=== PATIENT | male | born 1935 | race Native Hawaiian/Other Pacific Islander ===

== ENCOUNTER 2016-07-09 19:59 | Inpatient (IN) | payer MEDICARE, MEDICAID ==
[2016-07-09] MEDS ORDERED: Iohexol 240 (50 ml) PO ONE (20:52)
[2016-07-09] MEDS ORDERED: Iohexol 240 (50 ml) ONE (21:01)
[2016-07-09] MEDS ORDERED: Piperacillin/Tazobact 3.375 GM in Sodium Chloride 0.9% 100 ML IV STA (21:07)
[2016-07-09] MEDS ORDERED: Vancomycin 1 g Inj ONE (21:09)
[2016-07-09 21:13] LABS: BASO % 0.2 % (0.0-2.0); EOS % 0.1 % (0.0-4.0); HEMATOCRIT 26.1 % (35.0-51.0); LYMPH # 0.6 K/uL (1.0-4.3); LYMPH % 4.5 % (20.0-40.0); MEAN CELL VOLUME 85.1 fl (80.0-94.0); MEAN CORPUSCULAR HEMOGLOBIN 27.9 pg (27.0-31.0); MEAN CORPUSCULAR HGB CONC 32.8 g/dL (33.0-37.0); MEAN PLATELET VOLUME 8.1 fl (7.2-11.7); MONO # 0.8 K/uL (0.0-0.8); MONO % 5.7 % (0.0-10.0); NEUT # 12.6 K/uL (1.8-7.0); NEUT % 89.5 % (50.0-75.0); NRBC % 0.1 % (0.0-0.0); PLATELET COUNT 293 K/uL (130-400); RED CELL DISTRIBUTION WIDTH 17.8 % (11.5-14.5); WHITE BLOOD COUNT 14.1 K/uL (4.8-10.8)
[2016-07-09 21:25] LABS: ALB/GLOB RATIO 0.7 (1.0-2.1); BILIRUBIN,TOTAL 1.6 mg/dl (0.2-1.3); CALCIUM 8.2 mg/dL (8.4-10.2); POTASSIUM 5.4 MMOL/L (3.6-5.0); TOTAL PROTEIN 7.5 G/DL (6.3-8.2)
--- NOTE | 2016-07-09 21:25 | ED PDOC ---
HPI: Abdomen Time Seen by Provider: 07/09/16 20:07 Chief Complaint (Nursing): Abdominal Pain Chief Complaint (Provider): Abdominal Pain History Per: Patient History/Exam Limitations: no limitations Onset/Duration Of Symptoms: Days (2x weeks) Current Symptoms Are (Timing): Still Present Severity: Moderate Location Of Pain/Discomfort: Other (right mid abdominal pain) Associated Symptoms: Other (lower extremity swelling). denies: Fever, Nausea, Vomiting, Diarrhea Additional Complaint(s): 80 year old male [place] patient with a pertinent medical history of HTN, diabetes , prostate BPH and unspecified renal disease presents to the ED with complaints of abdominal pain tat started 2x weeks ago. He reports that 2x weeks ago he started having mid right abdominal pain that radiated to his lower back. He also reports having a change (decrease) in urine output and swelling in his lower extremities. e denies having any other symptoms including fever, nausea, vomiting, diarrhea, and shortness of breath. PMD: Dr. Carroll siphoner: Gwyn Morse MD Past Medical History Reviewed: Historical Data, Nursing Documentation, Vital Signs Vital Signs: Last Vital Signs Temp 97.7 F 07/10/16 01:13 Pulse 72 07/10/16 01:13 Resp 20 07/10/16 01:13 BP 108/66 07/10/16 01:13 Pulse Ox 99 07/10/16 01:13 - Medical History PMH: Diabetes, HTN Other PMH: unspecified renal disease, prostate BPH - Surgical History Surgical History: No Surg Hx - Family History Family History: States: Unknown Family Hx - Social History Alcohol: None Drugs: Denies - Home Medications Home Medications: Ambulatory Orders Medication Instructions Recorded Allopurinol [Zyloprim] 100 mg PO DAILY 07/09/16 Atorvastatin [Lipitor] 80 mg PO DAILY 07/09/16 Carvedilol [Coreg] 12.5 mg PO BID 07/09/16 Cholecalciferol [Vitamin D 1000 IU] 50,000 units PO QWK 07/09/16 Ezetimibe [Zetia] 10 mg PO HS 07/09/16 Gabapentin [Neurontin] 300 mg PO BID 07/09/16 Linagliptin [Tradjenta] 5 mg PO DAILY 07/09/16 Pioglitazone HCl [Pioglitazone HCl] 15 mg PO DAILY 07/09/16 Sevelamer Carbonate [Renvela] 800 mg PO TID 07/09/16 Tamsulosin [Flomax] 0.4 mg PO DAILY 07/09/16 Torsemide [Demadex] 50 mg PO DAILY 07/09/16 - Allergies Allergies/Adverse Reactions: Allergies Allergy/AdvReac Type Severity Reaction Status Date / Time No Known Allergies Allergy Verified 07/09/16 20:05 Review of Systems ROS Statement: Except As Marked, All Systems Reviewed And Found Negative Constitutional: Negative for: Fever Respiratory: Negative for: Shortness of Breath Gastrointestinal: Positive for: Abdominal Pain. Negative for: Nausea, Vomiting , Diarrhea Musculoskeletal: Positive for: Back Pain (lower), Leg Pain (lower extremity swelling) Physical Exam - Reviewed Nursing Documentation Reviewed: Yes Vital Signs Reviewed: Yes - Physical Exam Appears: Positive for: Well, Non-toxic (morbidly obese), No Acute Distress Head Exam: Positive for: ATRAUMATIC, NORMOCEPHALIC Skin: Positive for: Normal Color Cardiovascular/Chest: Positive for: Regular Rate, Rhythm Respiratory: Positive for: Normal Breath Sounds. Negative for: Respiratory Distress Gastrointestinal/Abdominal: Positive for: Normal Exam (obese). Negative for: Tenderness Extremity: Positive for: Swelling (lower extremity bilteral 3+ pulse and edema up to mid tibeal surface. right lower extremity: icthyotic changes to the skin. right leg: erythema, warmth, induration. ) Neurologic/Psych: Positive for: Alert, Oriented (3x) - Laboratory Results Result Diagrams: 07/09/16 21:00 07/09/16 21:00 - ECG O2 Sat by Pulse Oximetry: 94 (RA) Pulse Ox Interpretation: Abnormal - Critical Care Total Time (In Min): 60 Medical Decision Making Medical Decision Makin:07 Initial impression: 80 year old male with abdominal pain and lower extremity swelling, onsetting of unspecified kidney disease and diabetes. Initial plan: * ct abd pelvis with PO and IV contrast * US duplex lower extremities * XRay chest portable * EKG * BNP * CMP * Lactic acid plasma * lipase * troponin I * udip * CBC * PTT * prothrombin time * omnipaque 240 50ml PO * toradol 10mg IV * blood culture * accucheck * urinalysis * reevaluation Clinical impression: cellulitis of right lower extremity, acute cholecystitis 22:[address] Morse, patient will be admitted to the medicine service under Dr. Walker. 22:[address] Walker, changed to Dr. Solorio's service after discussion with Dr. Morse. 2313: US duplex b/l lower extremities: No deep venous thrombosis in the visualized vascular segments of the lower extremities. 2342: CT A/P impression: Markedly distended gallbladder with stones and/or sludge and pericholecystic inflammation suggest cholecystitis; minimal ascites; mild ileus, possible colitis; 2.2 x 2.3 cm nodule in the azygoesophageal recess infectious/inflammatory versus neoplastic; anasarca Scribe Attestation: Documented by Luzma Zambrano, acting as a scribe for Mathieu Lo MD. Provider Scribe Attestation: All medical record entries made by the Scribe were at my direction and personally dictated by me. I have reviewed the chart and agree that the record accurately reflects my personal performance of the history, physical exam, medical decision making, and the department course for this patient. I have also personally directed, reviewed, and agree with the discharge instructions and disposition. Disposition - Clinical Impression Clinical Impression: Acute cholecystitis, Cellulitis of right lower extremity, Acute kidney failure - Patient ED Disposition Is Patient to be Admitted: Yes Counseled Patient/Family Regarding: Studies Performed, Diagnosis - Disposition Disposition Time: 21:50 Condition: FAIR - Pt Status Changed To: Hospital Disposition Of: Inpatient - Admit Certification Admit to Inpatient:: After my assessment, the patient will require hospitalization for at least two midnights. This is because of the severity of symptoms shown, intensity of services needed, and/or the medical risk in this patient being treated as an outpatient.
[2016-07-09 21:36] LABS: PARTIAL THROMBOPLASTIN TIME 30.1 SECONDS (23.3-32.5); TROPONIN I 0.05 ng/mL (0.00-0.120)
[2016-07-09] MEDS ORDERED: Sodium Chloride 0.9% 1,000 ML IV STA (22:29)
[2016-07-09 22:35] LABS: NEUTROPHIL 78 % (42-75); TOTAL CELLS COUNTED 100
--- NOTE | 2016-07-09 23:14 | US ---
EXAM: US Duplex Bilateral Lower Extremity Veins CLINICAL HISTORY: 80 years old, male; Signs and symptoms; Swelling of limb; Lower extremity, bilateral TECHNIQUE: Real-time ultrasound scan of the veins of the bilateral lower extremities with color Doppler flow, spectral waveform analysis and compression. EXAM DATE/TIME: 07/09/2016 9:07 PM COMPARISON: There are no prior studies for comparison. FINDINGS: Right deep veins: Common femoral, superficial femoral, popliteal and posterior tibial veins were evaluated. All veins examined are compressible. There are no intraluminal filling defects. There is expected blood flow on Doppler imaging. There is change in waveform with augmentation. Left deep veins: Common femoral, superficial femoral, popliteal and posterior tibial veins were evaluated. All veins examined are compressible. There are no intraluminal filling defects. There is expected blood flow on Doppler imaging. There is change in waveform with augmentation. Impression: No deep venous thrombosis in the visualized vascular segments of the lower extremities
--- NOTE | 2016-07-09 23:42 | CT ---
EXAM: CT Abdomen and Pelvis With Intravenous Contrast CLINICAL HISTORY: 80 years old, male; Pain; Abdominal pain; Generalized; Patient HX: Sent lori Guadarrama. Doc. With request; Additional info: Abd pain TECHNIQUE: Axial computed tomography images of the abdomen and pelvis with intravenous contrast. This CT exam was performed using one or more of the following dose reduction techniques: automated exposure control, adjustment of the mA and/or kV according to patient size, and/or use of iterative reconstruction technique. Coronal and sagittal reformatted images were created and reviewed. EXAM DATE/TIME: 07/09/2016 10:24 PM COMPARISON: There are no prior studies for comparison. FINDINGS: Artifacts: Motion artifact degrades image quality. Lower thorax: Heart size is at the upper limits of normal. There are coronary calcifications. There is an incompletely imaged 2.2 x 2.3 cm mass versus node in the gastroesophageal recess. There is a small right pleural effusion. There is trace left pleural effusion. There is atelectasis and scarring at the lung bases. ABDOMEN: Liver: unremarkable Gallbladder and bile ducts: Gallbladder is markedly distended, 12 x 8 cm. Attenuation of gallbladder contents suggest stones and/or sludge. There is pericholecystic inflammation. Common duct is only mildly prominent at 8 mm in diameter. Pancreas: Pancreas is atrophic. Spleen: unremarkable Adrenals: unremarkable Kidneys and ureters: There is a 6.4 cm left renal cyst. Kidneys and ureters are otherwise unremarkable. Stomach and bowel: Stomach is partially distended with contrast and air. Rotation is normal. Small bowel is mildly distended with contrast, fluid and air. There is no obstruction. Streak and motion limit evaluation of the ileocecal region. Terminal ileum and appendix are not optimally evaluated. Colon is incompletely distended. There is descending colon wall thickening. There is mild sigmoid and rectal wall thickening. Appendix: See stomach and bowel PELVIS: Bladder: Bladder is almost completely empty. There is bladder wall thickening. There is mild perivesical inflammation Reproductive: Prostate is enlarged. Seminal vesicles are unremarkable. ABDOMEN and PELVIS: Intraperitoneal space: There is free fluid in the abdomen and pelvis. There is no free air. Bones/joints: Bony structures are osteopenic.There are degenerative changes in the osseus structures. Soft tissues: There is body wall edema. There is a small fat containing umbilical hernia. There is a fat containing right inguinal hernia There is body wall edema. Vasculature: There are vascular calcifications. Lymph nodes: There is shotty para-aortic adenopathy. There are mildly enlarged inguinal nodes bilaterally IMPRESSION: Markedly distended gallbladder with stones and/or sludge and pericholecystic inflammation suggest cholecystitis; minimal ascites; mild ileus, possible colitis; 2.2 x 2.3 cm nodule in the azygoesophageal recess infectious/inflammatory versus neoplastic; anasarca Additional findings as described above.
[2016-07-10] MEDS ORDERED: Sod Polystyrene Sulf 15 gm/60 ml Oral Susp ONE (00:08)
[2016-07-10] MEDS ORDERED: Sod Polystyrene Sulf 15 gm/60 ml Oral Susp PO STA (00:10)
--- NOTE | 2016-07-10 00:53 | CP.PCM.CON ---
History of Present Illness - History of Present Illness History of Present Illness: REASONS FOR CONSULT : A ON CKD WITH VERY HIGH BUN AND CREATININ HYPERKALEMIA HYPONATREMIA MET ACIDOSIS .. BICARB OF 17 ANEMIA OF CKD PT IS WELL KNOWN TO ME FROM [facility] ADMISSIONS TO [facility] THIS IS HIS FIRST ADMISSION TO [facility] .. CAME IN FOR FEELING UNWEL .. UNABLE TO WALK .. R U ABDO PAIN AND ANASARCA .. SEVERE WEEKNESS AND TIREDNESS WAS EVALUATED IN ER AND WAS ADMITTED FOR A ON CKD . ACUTE CHOLECYSTITIS AND ANASARCA PMH : DM WITH COMPLICATIONS .. HTN .. MORBID OBESITY ..HYPERURECEMIA .. HYPERLEPIDEMIA ..CKD MONTY 4 AND METABOLIC SYNDROME Chief Complaint (Nursing): Abdominal Pain Chief Complaint (Provider): Abdominal Pain History Per: Patient History/Exam Limitations: no limitations Onset/Duration Of Symptoms: Days (2x weeks) Current Symptoms Are (Timing): Still Present Severity: Moderate Location Of Pain/Discomfort: Other (right mid abdominal pain) Associated Symptoms: Other (lower extremity swelling). denies: Fever, Nausea, Vomiting, Diarrhea Additional Complaint(s): 80 year old male [place] patient with a pertinent medical history of HTN, diabetes , prostate BPH and unspecified renal disease presents to the ED with complaints of abdominal pain tat started 2x weeks ago. He reports that 2x weeks ago he started having mid right abdominal pain that radiated to his lower back. He also reports having a change (decrease) in urine output and swelling in his lower extremities. e denies having any other symptoms including fever, nausea, vomiting, diarrhea, and shortness of breath. Past Patient History - Past Social History Alcohol: None Drugs: Denies - CARDIAC Hx Cardiac Disorders: Yes - ENDOCRINE/METABOLIC Hx Endocrine Disorders: Yes - HEMATOLOGICAL/ONCOLOGICAL Hx Blood Disorders: Yes - PSYCHIATRIC Hx Substance Use: No Meds Allergies/Adverse Reactions: Allergies Allergy/AdvReac Type Severity Reaction Status Date / Time No Known Allergies Allergy Verified 07/09/16 20:05 - Medications Medications: Current Medications Sodium Chloride (Sodium Chloride 0.9%) 1,000 mls @ 50 mls/hr IV .Q20H STA Stop: 07/10/16 18:28 Results - Vital Signs Recent Vital Signs: Last Vital Signs Temp 98.2 F 07/10/16 00:35 Pulse 72 07/10/16 00:35 Resp 16 07/10/16 00:35 BP 105/58 L 07/10/16 00:35 Pulse Ox 97 07/10/16 00:35 - Labs Result Diagrams: 07/09/16 21:00 07/09/16 21:00 Assessment & Plan - Assessment and Plan (Free Text) Assessment: 1. A ON CKD ... WITH ELECTROLYTES ABNORMALITIES HYPONATREMIA AND HYPERKALEMIA .. WITH METABO;IC ACIDOSIS I THINK PT WILL NEED TO START ON HD 2 . ANEMIA OF CKD .. NEEDS IRON STUDIES + EPO + VENOFER 3. ELECTROLYTES ABNORMALITIES .. HYPONATREMIA AND HYPERKALEMIA 4. ANASARCA AND ELEVATED BNP .. PT NEEDS TO START ON HD 5. ACUTE CHOLICYSTITIS 6 . MULTIPLE MEDICAL PROBLEMS OUTLINED ABOVE P : TO START HD .. NEEDS VASCULAR SURGEON FOR ACCESS START NS AT 50 CC/H .. WILL D/C IN AM VENOUS MAPPING OF BOTH UPPER EXTREMITIES FOR FISTULA /GRAFT RENAL AND DIABETIC DIET : 2 G NA .. 2 G K .. 100 G PROTIEN .. 1800 SANDI ADA .. FR 1000 CC/D C/O CURRENT MEDS SURGICAL CONSULT FOR ACUTE CHOLECYSTITIS WILL F/U VERY CLOSELY - Date & Time Date: 07/10/16 Time: 19:00
[2016-07-10] MEDS ORDERED: Ergocalciferol 50,000 Intl Units Cap PO SCH (02:30)
[2016-07-10] MEDS: Insulin Regular 100 units/ml SC SCH ×4 (06:30→21:39)
[2016-07-10 07:02] LABS: ALB/GLOB RATIO 0.7 (1.0-2.1); ALKALINE PHOSPHATASE 250 U/L (38-126); ALT/SGPT 20 U/L (21-72); AST/SGOT 18 U/L (17-59); CALCIUM 7.9 mg/dL (8.4-10.2); CARBON DIOXIDE 18 mmol/L (22-30); CHLORIDE 98 mmol/L (98-107); CHOLESTEROL 64 mg/dL (0-199); GFR AFRICAN-AMERICAN 10; GLUCOSE,RANDOM 280 mg/dL (75-110); POTASSIUM 4.4 MMOL/L (3.6-5.0); SODIUM 129 mmol/l (132-148); TOTAL PROTEIN 6.4 G/DL (6.3-8.2)
[2016-07-10 07:14] LABS: BLOOD UREA NITROGEN 112 mg/dl (9-20)
[2016-07-10 07:32] LABS: THYROID STIMULATING HORMONE 0.84 mIU/ML (0.46-4.68)
[2016-07-10 08:28] LABS: HEMATOCRIT 25.8 % (35.0-51.0); MEAN CELL VOLUME 88.1 fl (80.0-94.0); MEAN CORPUSCULAR HEMOGLOBIN 27.1 pg (27.0-31.0); MEAN CORPUSCULAR HGB CONC 30.7 g/dL (33.0-37.0); WHITE BLOOD COUNT 16.5 K/uL (4.8-10.8)
--- NOTE | 2016-07-10 08:33 | RAD ---
HISTORY: abd pain COMPARISON: No prior. FINDINGS: LUNGS: Bibasilar opacities may represent atelectasis PLEURA: Blunting of both costophrenic angle could be due to pleural effusions. CARDIOVASCULAR: The cardiac silhouette is mildly enlarged. Widening of the mediastinum which could be artifactual due to the patient position OSSEOUS STRUCTURES: No significant abnormalities. VISUALIZED UPPER ABDOMEN: Normal. OTHER FINDINGS: None. IMPRESSION: Suboptimal portable study. Bibasilar densities may represent atelectasis. Mild pulmonary vascular congestion and mild cardiomegaly. Blunting of both costophrenic angle suspicious for small pleural effusions.
[2016-07-10] MEDS ORDERED: Piperacillin/Tazobact 3.375 GM in Sodium Chloride 0.9% 100 ML IVPB SCH (09:00)
[2016-07-10] MEDS ORDERED: Pneumococcal 23-Valent Vaccine IM ONE (10:00)
--- NOTE | 2016-07-10 10:09 | CARD ---
APPROVED REPORT EKG Measurement Heart [id number] <Conclusion> Sinus rhythm with premature atrial complexes Left bundle branch block Abnormal ECG
--- NOTE | 2016-07-10 13:32 | CP.PCM.HP ---
History of Present Illness - History of Present Illness History of Present Illness: 80yo M with PMHx HTN, diabetes, prostate BPH and CKD admitted for acute on chronic kidney injury and cellulitis. c/o abd pain x2 weeks, currently resolved. Follows with Nephro Dr. Morse for CKD and report decreased UOP, a/w LE swelling. Denies f/c, n/v, chest pain, SOB. PMD: Dr. Carroll Present on Admission - Present on Admission Any Indicators Present on Admission: Yes Decubitus Ulcer Present: Yes Decubitus Ulcer Location: Lower extremities Review of Systems - Constitutional Constitutional: absent: Chills, Fever - EENT Eyes: absent: Change in Vision - Cardiovascular Cardiovascular: absent: Chest Pain - Respiratory Respiratory: absent: Dyspnea - Gastrointestinal Gastrointestinal: absent: Abdominal Pain, Diarrhea, Nausea, Vomiting - Genitourinary Genitourinary: absent: Dysuria, Hematuria - Neurological Neurological: absent: Headaches Past Patient History - Past Medical History & Family History Past Medical History?: Yes - Past Social History Smoking Status: Never Smoked - CARDIAC Hx Hypertension: Yes - RENAL Hx Renal Failure: Yes - ENDOCRINE/METABOLIC Hx Endocrine Disorders: Yes Hx Diabetes Mellitus Type 2: Yes - HEMATOLOGICAL/ONCOLOGICAL Hx Blood Disorders: Yes - MUSCULOSKELETAL/RHEUMATOLOGICAL Hx Falls: No - GENITOURINARY/GYNECOLOGICAL Hx Prostate Problems: Yes (BPH) - PSYCHIATRIC Hx Substance Use: No - ANESTHESIA Hx Anesthesia: No Hx Anesthesia Reactions: No Meds Allergies/Adverse Reactions: Allergies Allergy/AdvReac Type Severity Reaction Status Date / Time No Known Allergies Allergy Verified 07/09/16 20:05 Physical Exam - Constitutional Appears: Non-toxic, No Acute Distress - Head Exam Head Exam: ATRAUMATIC, NORMAL INSPECTION - Eye Exam Eye Exam: Normal appearance - Neck Exam Neck exam: Positive for: Normal Inspection - Respiratory Exam Respiratory Exam: Clear to Auscultation Bilateral - Cardiovascular Exam Cardiovascular Exam: REGULAR RHYTHM - GI/Abdominal Exam GI & Abdominal Exam: Normal Bowel Sounds, Soft - Extremities Exam Additional comments: erythema, ulcer, dermatitis stasis - Neurological Exam Neurological exam: Alert, Oriented x3 - Skin Skin Exam: Dry, Warm Additional comments: other than lower extremities Results - Vital Signs Recent Vital Signs: Last Vital Signs Temp 97.9 F 07/10/16 08:00 Pulse 67 07/10/16 08:13 Resp 18 07/10/16 08:00 BP 100/60 07/10/16 08:13 Pulse Ox 96 07/10/16 08:00 - Labs Result Diagrams: 07/10/16 05:35 07/10/16 05:35 Labs: Laboratory Results - last 24 hr 07/10/16 07/10/16 07/10/16 05:35 05:35 05:35 WBC 16.5 H RBC 2.93 L Hgb 7.9 L Hct 25.8 L MCV 88.1 D MCH 27.1 MCHC 30.7 L RDW 18.0 H Plt Count 234 APTT 32.0 Sodium 129 L Potassium 4.4 Chloride 98 Carbon Dioxide 18 L Anion Gap 17 BUN 112 H* Creatinine 6.3 H Est GFR ( Amer) 10 Est GFR (Non-Af Amer) 9 POC Glucose (mg/dL) Random Glucose 280 H Hemoglobin A1c Calcium 7.9 L Ferritin Total Bilirubin 1.0 AST 18 ALT 20 L Alkaline Phosphatase 250 H Total Protein 6.4 Albumin 2.6 L Globulin 3.8 Albumin/Globulin Ratio 0.7 L Triglycerides 58 Cholesterol 64 LDL Cholesterol Direct < 30 HDL Cholesterol 27 L Vitamin B12 914 Thyroxine (T4) 6.30 TSH 3rd Generation 0.84 07/10/16 07/10/16 07/10/16 07:12 10:55 11:32 WBC RBC Hgb Hct MCV MCH MCHC RDW Plt Count APTT Sodium Potassium Chloride Carbon Dioxide Anion Gap BUN Creatinine Est GFR ( Amer) Est GFR (Non-Af Amer) POC Glucose (mg/dL) 261 H Random Glucose Hemoglobin A1c 9.2 H Calcium Ferritin 892.0 H Total Bilirubin AST ALT Alkaline Phosphatase Total Protein Albumin Globulin Albumin/Globulin Ratio Triglycerides Cholesterol LDL Cholesterol Direct HDL Cholesterol Vitamin B12 Thyroxine (T4) TSH 3rd Generation Assessment & Plan - Assessment and Plan (Free Text) Assessment: 80yo M with PMHx HTN, diabetes, prostate BPH and CKD admitted for acute on chronic kidney injury, cellulitis. acute on CKD -emergent HD -Nephro on board, appreciate input -cath for HD with IR today -renal diet -renal dose meds when possible -Mg, Phos, BMP, correct electrolytes, monitor BUN/Cr -Renagel cellulitis -Vanc/Zosyn cholecystitis -US no cholecystitis, cholelithiasis -CT abd pelvis showing ? cholecystitis -surgery on board, appreciate input anasarca -low albumin -monitor -HD -Nephro on board, appreciate input HTN -coreg HLD -statin -zetia DM -held linagliptin, pioglitazone -januvia -SSI -accuchecks DVT ppx -heparin Decision To Admit - Pt Status Changed To: Hospital Disposition Of: Inpatient - Admit Certification Admit to Inpatient:: After my assessment, the patient will require hospitalization for at least two midnights. This is because of the severity of symptoms shown, intensity of services needed, and/or the medical risk in this patient being treated as an outpatient. - . Bed Request Type: Med/Surg Admitting Physician: Tang Solorio
--- NOTE | 2016-07-10 14:15 | US ---
HISTORY: Gallbladder evaluation COMPARISON: None. TECHNIQUE: Sonographic evaluation of the abdomen. FINDINGS: LIVER: Measures 15.2 cm. Normal echogenicity of the liver parenchyma. No mass. No intrahepatic bile duct dilatation. GALLBLADDER: Cholelithiasis. Negative study for gallbladder wall thickening, pericholecystic fluid, sonographic Knight's sign. Sludge identified. COMMON BILE DUCT: Measures 4.1 mm. No stones. No dilatation. PANCREAS: Unremarkable as visualized. No mass. No ductal dilatation. RIGHT KIDNEY: Measures 5.1 x 9.4cm. Normal echogenicity. No calculus, mass, or hydronephrosis. LEFT KIDNEY: Measures 5.3 x 10.4cm. Normal echogenicity. No calculus, mass, or hydronephrosis.Incidental finding(s): Simple cyst upper pole 4.8 x 6.2 cm SPLEEN: Normal in size and contour. No mass. AORTA: No aneurysmal dilatation. IVC: Unremarkable. OTHER FINDINGS: None. IMPRESSION: Cholelithiasis. No sonographic evidence of acute cholecystitis.
[2016-07-10] MEDS ORDERED: Lidocaine 1% Inj (20ml) ONE (14:19)
[2016-07-10 14:44] LABS: IRON 20 ug/dL (49-181)
--- NOTE | 2016-07-10 14:56 | PCM.SURG1 ---
Surgeon's Initial Post Op Note - Surgeon's Notes Surgeon: Dominick Esparza MD Advertising Supervisor: NONE Type of Anesthesia: Local Pre-Operative Diagnosis: Renal failure Operative Findings: Patetn right IJV on Ultrasound Post-Operative Diagnosis: Renal failure Operation Performed: Right IJ nontunneled HD catheter placement. Specimen/Specimens Removed: none Estimated Blood Loss: EBL {In ML}: 2 Blood Products Given: N/A Drains Used: No Drains Post-Op Condition: Fair Date of Surgery/Procedure: 07/10/16 Time of Surgery/Procedure: 14:50
--- NOTE | 2016-07-10 15:04 | CP.PCM.CON ---
History of Present Illness - History of Present Illness History of Present Illness: General surgery - Dr. Roa 80 yo M morbidly obese w/ HTN, DM, HL, CKD, who came in to ED yesterday complaining of weakness, abdominal pain and bloating. Pt was found to have acute on chronic renal failure. He underwent Ct abdomen/pelvis which showed a distended GB suspicious for cholecystitis. Surgery was consulted for poss. cholecystitis and HD catheter. Today pt was sent to IR for Permacath placement. An U/S was ordered to further evaluate the gallbladder. Pt was S&E at bedside with lot attendant. He is a poor historian and defers most questions to his son. Pt currently denies any abdominal pain, he does complain of bloating and states that he had some pain yesterday but today he feels fine. Pt is tolerating a regular diet and denies any N/V, F/C. Review of Systems - Review of Systems All systems: reviewed and no additional remarkable complaints except (as per HPI ) Past Patient History - Past Medical History & Family History Past Medical History?: Yes - Past Social History Smoking Status: Never Smoked - CARDIAC Hx Hypertension: Yes - RENAL Hx Renal Failure: Yes - ENDOCRINE/METABOLIC Hx Endocrine Disorders: Yes Hx Diabetes Mellitus Type 2: Yes - HEMATOLOGICAL/ONCOLOGICAL Hx Blood Disorders: Yes - MUSCULOSKELETAL/RHEUMATOLOGICAL Hx Falls: No - GENITOURINARY/GYNECOLOGICAL Hx Prostate Problems: Yes (BPH) - PSYCHIATRIC Hx Substance Use: No - ANESTHESIA Hx Anesthesia: No Hx Anesthesia Reactions: No Meds Allergies/Adverse Reactions: Allergies Allergy/AdvReac Type Severity Reaction Status Date / Time No Known Allergies Allergy Verified 07/09/16 20:05 - Medications Medications: Current Medications Acetaminophen (Tylenol 325mg Tab) 650 mg PO Q6 PRN PRN Reason: Pain, moderate (4-7) Allopurinol (Zyloprim) [address] [facility] Last Admin: 07/10/16 08:23 Dose: 100 mg Atorvastatin Calcium (Lipitor) [address] [facility] Last Admin: 07/10/16 08:23 Dose: 80 mg Carvedilol (Coreg) 12.[address] [facility] Last Admin: 07/10/16 08:13 Dose: Not Given Ezetimibe (Zetia) [address] [facility] Ergocalciferol (Drisdol 50,000 Intl Units Cap) [address] [facility] Gabapentin (Neurontin) [address] [facility] Last Admin: 07/10/16 08:23 Dose: 300 mg Heparin Sodium (Porcine) (Heparin) 5,[address] [facility] PRN Reason: Protocol Last Admin: 07/10/16 08:22 Dose: 5,000 units Vancomycin HCl 1 gm/ Sodium (Chloride) 250 mls @ 166.667 mls/hr IVPB DAILY [facility] Last Admin: 07/10/16 10:54 Dose: 166.667 mls/hr Piperacillin Sod/Tazobactam (Sod 2.25 gm/ Sodium Chloride) 100 mls @ 100 mls/ hr IVPB Q8 [facility] Insulin Human Regular (Humulin R) [address] [facility] PRN Reason: Protocol Last Admin: 07/10/16 06:30 Dose: 2 u Sevelamer HCl (Renagel) [address] [facility] Last Admin: 07/10/16 08:23 Dose: 800 mg Sitagliptin Phosphate (Januvia) [address] [facility] Last Admin: 07/10/16 08:23 Dose: 25 mg Tamsulosin HCl (Flomax) 0.[address] [facility] Last Admin: 07/10/16 08:21 Dose: 0.4 mg Physical Exam - Constitutional Appears: No Acute Distress - Head Exam Head Exam: ATRAUMATIC, NORMAL INSPECTION, NORMOCEPHALIC - Eye Exam Eye Exam: EOMI, Normal appearance - ENT Exam ENT Exam: Mucous Membranes Dry - Respiratory Exam Respiratory Exam: NORMAL BREATHING PATTERN. absent: Respiratory Distress - Cardiovascular Exam Cardiovascular Exam: REGULAR RHYTHM - GI/Abdominal Exam GI & Abdominal Exam: Distended, Soft. absent: Firm, Guarding, Rebound, Rigid, Tenderness - Neurological Exam Neurological exam: Alert, Oriented x3 - Psychiatric Exam Psychiatric exam: Normal Affect, Normal Mood - Skin Skin Exam: Dry, Intact Results - Vital Signs Recent Vital Signs: Last Vital Signs Temp 96.3 F L 07/10/16 14:47 Pulse 80 07/10/16 14:47 Resp 18 07/10/16 14:47 BP 100/62 07/10/16 14:47 Pulse Ox 98 07/10/16 14:47 - Labs Result Diagrams: 07/10/16 05:35 07/10/16 05:35 Labs: Laboratory Results - last 24 hr 07/10/16 07/10/16 07/10/16 05:35 05:35 05:35 WBC 16.5 H RBC 2.93 L Hgb 7.9 L Hct 25.8 L MCV 88.1 D MCH 27.1 MCHC 30.7 L RDW 18.0 H Plt Count 234 APTT 32.0 Sodium 129 L Potassium 4.4 Chloride 98 Carbon Dioxide 18 L Anion Gap 17 BUN 112 H* Creatinine 6.3 H Est GFR ( Amer) 10 Est GFR (Non-Af Amer) 9 POC Glucose (mg/dL) Random Glucose 280 H Hemoglobin A1c Calcium 7.9 L Ferritin Total Bilirubin 1.0 AST 18 ALT 20 L Alkaline Phosphatase 250 H Total Protein 6.4 Albumin 2.6 L Globulin 3.8 Albumin/Globulin Ratio 0.7 L Triglycerides 58 Cholesterol 64 LDL Cholesterol Direct < 30 HDL Cholesterol 27 L Vitamin B12 914 Thyroxine (T4) 6.30 TSH 3rd Generation 0.84 07/10/16 07/10/16 07/10/16 07:12 10:55 11:32 WBC RBC Hgb Hct MCV MCH MCHC RDW Plt Count APTT Sodium Potassium Chloride Carbon Dioxide Anion Gap BUN Creatinine Est GFR ( Amer) Est GFR (Non-Af Amer) POC Glucose (mg/dL) 261 H Random Glucose Hemoglobin A1c 9.2 H Calcium Ferritin 892.0 H Total Bilirubin AST ALT Alkaline Phosphatase Total Protein Albumin Globulin Albumin/Globulin Ratio Triglycerides Cholesterol LDL Cholesterol Direct HDL Cholesterol Vitamin B12 Thyroxine (T4) TSH 3rd Generation - Imaging and Cardiology CT scan - abdomen Status: Image reviewed by me, Report reviewed by me US - abdomen Status: Image reviewed by me, Report reviewed by me Assessment & Plan - Assessment and Plan (Free Text) Assessment: 80 yo M w/ morbid obesity, DM, HTN, Acute on CKD, surgery consulted for poss. cholecystitis -HD catheter to be placed by IR, Dialysis as per Nephro -CT shows evidence of gallstones and inflammation around the gallbladder, ileus and mild colitis -U/S with stones, no pericholecystic fluid or wall thickening -Pt. asymptomatic and U/S negative for acute cholecystitis -No plans for surgical intervention at this time Dw Dr. Crispin Triplett PGY2
[2016-07-10] MEDS ORDERED: Dextrose 50% SYRINGE Inj (50 ml) IVP PRN (15:13)
[2016-07-10] MEDS ORDERED: Glucagon Recombinant 1 mg Inj IM PRN (15:13)
--- NOTE | 2016-07-10 15:26 | VASCULAR ---
PROCEDURE: Date of procedure: 07/10/2016 Procedure: Placement of a non tunneled hemodialysis catheter, CPT 68444 Medications: 6cc 1 percent lidocaine Radiation: .40 mGy Fluoro time: 3.1 secconds Images saved: 2 HISTORY: Acute renal failure TECHNIQUE: Following informed consent, the patient's right neck was prepped and draped in the usual sterile fashion. Ultrasound showed a patent and compressible right internal jugular vein. After the skin was anesthetized with 1% lidocaine, the internal jugular vein was accessed under direct ultrasound guidance with micropuncture technique and a guidewire was advanced under fluorospocic guidance into the SVC. The venotomy was then dilated to accommodate a non tunneled 15 hemodialysis catheter. An image documenting ultrasound guidance for vascular access was permanently saved. The catheter was tested and has adequate blood return for hemodialysis. The catheter was flushed and loaded with heparin per specified amounts. The catheter was secured to patient's skin. A dressing was applied. Post procedure chest x-ray showed a hemodialysis catheter at the caval atrial junction. IMPRESSION: Placement of a non tunneled 15 centimeter hemodialysis catheter via the right internal jugular vein. The tip of the catheter was confirmed with a postoperative chest x-ray and is at the superior vena cava-cavoatrial junction. The catheter is functional ready for use.
--- NOTE | 2016-07-10 19:45 | CP.PCM.PN ---
Subjective - Date & Time of Evaluation Date of Evaluation: 07/10/16 Time of Evaluation: 15:00 - Subjective Subjective: SEEN ON RENAL F/U .. FEELS LITTLE BETTER S/P R SHILY CATH IN IJ BY IR PT IS READY FOR HD CASE D/W HIM AND HIS AND HIS [employer] AMIR CONSENT WAS SIGNED BY PT WITH THE RN WITNESS SEVERE ACUTE ON TOP OF CKD WITH ACIDOSIS AND ELECTROLYTES ABNORMALITIES PT HAS HAD 3 ADMISSIONS IN THE LAST 6 MONTHS FOR HIS ILLNESSES WILL START ON HD ALL PREVIOUS EMR REVIEWED AND APPRECIETED Objective - Vital Signs/Intake and Output Vital Signs (last 24 hours): Temp Pulse Resp BP Pulse Ox 96.6 F L 68 20 95/53 L 98 07/10/16 16:28 07/10/16 18:57 07/10/16 18:57 07/10/16 18:57 07/10/16 18:57 - Medications Medications: Current Medications Acetaminophen (Tylenol 325mg Tab) 650 mg PO Q6 PRN PRN Reason: Pain, moderate (4-7) Allopurinol (Zyloprim) 100 mg PO DAILY [facility] Last Admin: 07/10/16 08:23 Dose: 100 mg Atorvastatin Calcium (Lipitor) 80 mg PO DAILY [facility] Last Admin: 07/10/16 08:23 Dose: 80 mg Carvedilol (Coreg) 12.5 mg PO BID [facility] Last Admin: 07/10/16 17:32 Dose: Not Given Dextrose (Dextrose 50% Inj) 0 ml IVP STAT PRN; Protocol PRN Reason: Hypoglycemia Protocol Ezetimibe (Zetia) 10 mg PO HS [facility] Ergocalciferol (Drisdol 50,000 Intl Units Cap) 1 cap PO QWK [facility] Gabapentin (Neurontin) 300 mg PO BID [facility] Last Admin: 07/10/16 17:22 Dose: 300 mg Glucagon (Glucagen Diagnostic Kit) 0 mg IM STAT PRN; Protocol PRN Reason: Hypoglycemia Protocol Heparin Sodium (Porcine) (Heparin) 5,000 units SC Q8 [facility] PRN Reason: Protocol Last Admin: 07/10/16 17:20 Dose: 5,000 units Vancomycin HCl 1 gm/ Sodium (Chloride) 250 mls @ 166.667 mls/hr IVPB DAILY [facility] Last Admin: 07/10/16 10:54 Dose: 166.667 mls/hr Piperacillin Sod/Tazobactam (Sod 2.25 gm/ Sodium Chloride) 100 mls @ 100 mls/ hr IVPB Q8 [facility] Last Admin: 07/10/16 17:19 Dose: 100 mls/hr Insulin Human Regular (Humulin R) 0 units SC ACHS [facility] PRN Reason: Protocol Last Admin: 07/10/16 17:24 Dose: 3 u Sevelamer HCl (Renagel) 800 mg PO TID [facility] Last Admin: 07/10/16 17:21 Dose: 800 mg Sitagliptin Phosphate (Januvia) 25 mg PO DAILY [facility] Last Admin: 07/10/16 08:23 Dose: 25 mg Tamsulosin HCl (Flomax) 0.4 mg PO DAILY [facility] Last Admin: 07/10/16 08:21 Dose: 0.4 mg - Labs Labs: 07/10/16 05:35 07/10/16 05:35 PT 11.7 SECONDS (9.6-11.2) H 07/09/16 21:00 INR 1.13 (0.92-1.08) H 07/09/16 21:00 APTT 32.0 SECONDS (23.3-32.5) 07/10/16 05:35 Assessment and Plan - Assessment and Plan (Free Text) Assessment: A ON CKD .. TO START ON HD .. S/P R IJ SHILY CATH ELECTROLYTES ABNORMALITIES .. SEVERE ANEMIA OF CKD MULTIPLE CO MORBIDITIES P : HD IN AM WITH 1 UNIT PRBC 2ND HD IN SAT WITH 2ND UNITS PRBC CONSENT FOR HD OBTAINED FROM PT D/C IVF C/O CURRENT MEDS NEXT WEEK FOR TUNNELLED CATH IF B/C _VE SW TO FAX PAPERS FOR OUT PT HD SPOT KEEP CLOSE EYE
[2016-07-10 22:52] LABS: FOLATE 10.1 ng/mL
[2016-07-11 07:24] LABS: HEMATOCRIT 26.9 % (35.0-51.0); MEAN CELL VOLUME 86.2 fl (80.0-94.0); MEAN CORPUSCULAR HEMOGLOBIN 27.1 pg (27.0-31.0); MEAN CORPUSCULAR HGB CONC 31.4 g/dL (33.0-37.0); WHITE BLOOD COUNT 14.2 K/uL (4.8-10.8)
--- NOTE | 2016-07-11 07:33 | CP.PCM.PN ---
Subjective - Date & Time of Evaluation Date of Evaluation: 07/11/16 Time of Evaluation: 07:33 - Subjective Subjective: no overnight events. completed right IJ HD cath placement with IR yesterday. HD today with 1u pRBC. Denies abdominal pain, no other complaints. Denies chest pain, SOB. Objective - Vital Signs/Intake and Output Vital Signs (last 24 hours): Temp Pulse Resp BP Pulse Ox 96.6 F L 71 20 101/59 L 98 07/11/16 05:37 07/11/16 05:37 07/11/16 05:37 07/11/16 05:37 07/11/16 00:33 - Medications Medications: Current Medications Acetaminophen (Tylenol 325mg Tab) 650 mg PO Q6 PRN PRN Reason: Pain, moderate (4-7) Allopurinol (Zyloprim) 100 mg PO DAILY [facility] Last Admin: 07/10/16 08:23 Dose: 100 mg Atorvastatin Calcium (Lipitor) 80 mg PO DAILY [facility] Last Admin: 07/10/16 08:23 Dose: 80 mg Carvedilol (Coreg) 12.5 mg PO BID [facility] Last Admin: 07/10/16 17:32 Dose: Not Given Dextrose (Dextrose 50% Inj) 0 ml IVP STAT PRN; Protocol PRN Reason: Hypoglycemia Protocol Ezetimibe (Zetia) 10 mg PO HS [facility] Last Admin: 07/10/16 21:40 Dose: 10 mg Ergocalciferol (Drisdol 50,000 Intl Units Cap) 1 cap PO QWK [facility] Gabapentin (Neurontin) 300 mg PO BID [facility] Last Admin: 07/10/16 17:22 Dose: 300 mg Glucagon (Glucagen Diagnostic Kit) 0 mg IM STAT PRN; Protocol PRN Reason: Hypoglycemia Protocol Heparin Sodium (Porcine) (Heparin) 5,000 units SC Q8 [facility] PRN Reason: Protocol Last Admin: 07/11/16 01:52 Dose: Not Given Vancomycin HCl 1 gm/ Sodium (Chloride) 250 mls @ 166.667 mls/hr IVPB DAILY [facility] Last Admin: 07/10/16 10:54 Dose: 166.667 mls/hr Piperacillin Sod/Tazobactam (Sod 2.25 gm/ Sodium Chloride) 100 mls @ 100 mls/ hr IVPB Q8 [facility] Last Admin: 07/11/16 01:37 Dose: 100 mls/hr Insulin Human Regular (Humulin R) 0 units SC ACHS [facility] PRN Reason: Protocol Last Admin: 07/10/16 21:39 Dose: Not Given Sevelamer HCl (Renagel) 800 mg PO TID [facility] Last Admin: 07/10/16 17:21 Dose: 800 mg Sitagliptin Phosphate (Januvia) 25 mg PO DAILY [facility] Last Admin: 07/10/16 08:23 Dose: 25 mg Tamsulosin HCl (Flomax) 0.4 mg PO DAILY [facility] Last Admin: 07/10/16 08:21 Dose: 0.4 mg - Labs Labs: 07/10/16 05:35 07/10/16 05:35 PT 11.7 SECONDS (9.6-11.2) H 07/09/16 21:00 INR 1.13 (0.92-1.08) H 07/09/16 21:00 APTT 32.0 SECONDS (23.3-32.5) 07/10/16 05:35 - Constitutional Appears: Non-toxic, No Acute Distress - Head Exam Head Exam: NORMAL INSPECTION - Neck Exam Neck Exam: Normal Inspection - Respiratory Exam Respiratory Exam: Clear to Ausculation Bilateral - Cardiovascular Exam Cardiovascular Exam: REGULAR RHYTHM - GI/Abdominal Exam GI & Abdominal Exam: Soft, Normal Bowel Sounds. absent: Tenderness - Extremities Exam Extremities Exam: Pedal Edema, Tenderness Additional comments: dermatitis, ulceration - Back Exam Back Exam: NORMAL INSPECTION - Neurological Exam Neurological Exam: Alert, Oriented x3 - Skin Skin Exam: Dry, Warm Additional comments: other than LE Assessment and Plan - Assessment and Plan (Free Text) Assessment: 80yo M with PMHx HTN, diabetes, prostate BPH and CKD admitted for acute on chronic kidney injury, cellulitis. acute on CKD -emergent HD, today (with 1u pRBC) and tomorrow (with 2u pRBC) -Nephro on board, appreciate input -s/p HD cath right IJ per IR -renal diet -renally dose meds when possible -Mg, Phos, BMP, correct electrolytes, monitor BUN/Cr -Renagel cellulitis -Vanc/Zosyn, renally dosed, vanc administered after HD. -CrCl 9 -GFR 7 -c/s podiatry cholecystitis, ruled out -US no cholecystitis, cholelithiasis -CT abd pelvis showing ? cholecystitis -surgery on board, s/o. no cholecystitis anasarca -low albumin -monitor -HD today -Nephro on board, appreciate input HTN -coreg HLD -statin -zetia DM -held linagliptin, pioglitazone -januvia -SSI -accuchecks DVT ppx -heparin
[2016-07-11 07:46] LABS: ALB/GLOB RATIO 0.7 (1.0-2.1); BILIRUBIN,TOTAL 0.7 mg/dl (0.2-1.3); CALCIUM 7.9 mg/dL (8.4-10.2); MAGNESIUM 2.1 MG/DL (1.6-2.3); PHOSPHOROUS 6.6 mg/dl (2.5-4.5); POTASSIUM 4.5 MMOL/L (3.6-5.0); TOTAL PROTEIN 6.8 G/DL (6.3-8.2)
--- NOTE | 2016-07-11 08:16 | CP.PCM.CON ---
History of Present Illness - History of Present Illness History of Present Illness: PODIATRY CONSULT NOTE 80 year old male seen at bedside concerning potential bilateral lower extremity redness and swelling. . Weak and poorly oriented during interview. With language barrier unable to obtain history of present illness. Undergoing dialysis during interview. PMHx HTN, diabetes, prostate BPH and CKD Past Patient History - Past Medical History & Family History Past Medical History?: Yes - Past Social History Smoking Status: Never Smoked - CARDIAC Hx Hypertension: Yes - RENAL Hx Renal Failure: Yes - ENDOCRINE/METABOLIC Hx Endocrine Disorders: Yes Hx Diabetes Mellitus Type 2: Yes - HEMATOLOGICAL/ONCOLOGICAL Hx Blood Disorders: Yes - MUSCULOSKELETAL/RHEUMATOLOGICAL Hx Falls: No - GENITOURINARY/GYNECOLOGICAL Hx Prostate Problems: Yes (BPH) - PSYCHIATRIC Hx Substance Use: No - ANESTHESIA Hx Anesthesia: No Hx Anesthesia Reactions: No Meds Allergies/Adverse Reactions: Allergies Allergy/AdvReac Type Severity Reaction Status Date / Time No Known Allergies Allergy Verified 07/09/16 20:05 - Medications Medications: Current Medications Acetaminophen (Tylenol 325mg Tab) 650 mg PO Q6 PRN PRN Reason: Pain, moderate (4-7) Allopurinol (Zyloprim) 100 mg PO DAILY [facility] Last Admin: 07/10/16 08:23 Dose: 100 mg Atorvastatin Calcium (Lipitor) 80 mg PO DAILY [facility] Last Admin: 07/10/16 08:23 Dose: 80 mg Carvedilol (Coreg) 12.5 mg PO BID [facility] Last Admin: 07/10/16 17:32 Dose: Not Given Dextrose (Dextrose 50% Inj) 0 ml IVP STAT PRN; Protocol PRN Reason: Hypoglycemia Protocol Ezetimibe (Zetia) 10 mg PO HS [facility] Last Admin: 07/10/16 21:40 Dose: 10 mg Ergocalciferol (Drisdol 50,000 Intl Units Cap) 1 cap PO QWK [facility] Gabapentin (Neurontin) 300 mg PO BID [facility] Last Admin: 07/10/16 17:22 Dose: 300 mg Glucagon (Glucagen Diagnostic Kit) 0 mg IM STAT PRN; Protocol PRN Reason: Hypoglycemia Protocol Heparin Sodium (Porcine) (Heparin) 5,000 units SC Q8 [facility] PRN Reason: Protocol Last Admin: 07/11/16 01:52 Dose: Not Given Vancomycin HCl 1 gm/ Sodium (Chloride) 250 mls @ 166.667 mls/hr IVPB DAILY [facility] Last Admin: 07/10/16 10:54 Dose: 166.667 mls/hr Piperacillin Sod/Tazobactam (Sod 2.25 gm/ Sodium Chloride) 100 mls @ 100 mls/ hr IVPB Q8 [facility] Last Admin: 07/11/16 01:37 Dose: 100 mls/hr Insulin Human Regular (Humulin R) 0 units SC ACHS [facility] PRN Reason: Protocol Last Admin: 07/10/16 21:39 Dose: Not Given Sevelamer HCl (Renagel) 800 mg PO TID [facility] Last Admin: 07/10/16 17:21 Dose: 800 mg Sitagliptin Phosphate (Januvia) 25 mg PO DAILY [facility] Last Admin: 07/10/16 08:23 Dose: 25 mg Tamsulosin HCl (Flomax) 0.4 mg PO DAILY [facility] Last Admin: 07/10/16 08:21 Dose: 0.4 mg Physical Exam - Constitutional Appears: Toxic, No Acute Distress, Unkempt, Chronically Ill - Extremities Exam Additional comments: Lower extremity focused. VASC: DP and t pulses fully palpable bilaterally, graded 2/4 and 1/4 respectively. DP pulses likely weaker due to pedal edema. DERM: Diffuse bilateral lower leg blanchable erythema extending from proximal 1/ 3 of leg terminating superior to the ankle joints with accompanying dyshydrotic epidermal patches. Left leg exhibits turgid un-ruptured serous filled vesicles. Right leg noted to have 3 unroof bulla with weeping serous exudate along anterior-lateral margin of proximal 1/3 of leg. NEURO: Unable to obtain due to pts non-communicatory status. ORTHO: Pedal muscle strength graded a 5/5 despite no response to verbal stimuli , pt able to resist displacement in 4 major pedal muscle groups. No gross deformities noted. - Neurological Exam Neurological exam: Alert - Psychiatric Exam Psychiatric exam: Normal Affect, Normal Mood Results - Vital Signs Recent Vital Signs: Last Vital Signs Temp 97.9 F 07/11/16 08:12 Pulse 71 07/11/16 08:12 Resp 18 07/11/16 08:12 BP 98/47 L 07/11/16 08:12 Pulse Ox 99 07/11/16 08:12 - Labs Result Diagrams: 07/11/16 07:00 07/11/16 07:00 Labs: Laboratory Results - last 24 hr 07/10/16 07/10/16 07/10/16 05:35 05:35 05:47 WBC 16.5 H RBC 2.93 L Hgb 7.9 L Hct 25.8 L MCV 88.1 D MCH 27.1 MCHC 30.7 L RDW 18.0 H Plt Count 234 ESR APTT 32.0 POC Glucose (mg/dL) 292 H Hemoglobin A1c Iron TIBC % Saturation Ferritin Folate Blood Type Blood Type Confirm Antibody Screen Crossmatch BBK History Checked 07/10/16 07/10/16 07/10/16 07:12 10:55 11:32 WBC RBC Hgb Hct MCV MCH MCHC RDW Plt Count ESR APTT POC Glucose (mg/dL) 261 H Hemoglobin A1c 9.2 H Iron 20 L TIBC 176 L % Saturation 12 L Ferritin Folate Blood Type Blood Type Confirm Antibody Screen Crossmatch BBK History Checked 07/10/16 07/10/16 07/10/16 11:32 15:47 16:54 WBC RBC Hgb Hct MCV MCH MCHC RDW Plt Count ESR 107 H APTT POC Glucose (mg/dL) 294 H Hemoglobin A1c Iron TIBC % Saturation Ferritin 892.0 H Folate 10.1 Blood Type Blood Type Confirm Antibody Screen Crossmatch BBK History Checked 07/10/16 07/10/16 07/10/16 16:54 18:46 21:17 WBC RBC Hgb Hct MCV MCH MCHC RDW Plt Count ESR APTT POC Glucose (mg/dL) 301 H Hemoglobin A1c Iron TIBC % Saturation Ferritin Folate Blood Type O POSITIVE Blood Type Confirm O POSITIVE Antibody Screen Negative Crossmatch See Detail BBK History Checked No verified bt 07/11/16 07/11/16 04:51 07:00 WBC 14.2 H RBC 3.11 L Hgb 8.4 L Hct 26.9 L MCV 86.2 MCH 27.1 MCHC 31.4 L RDW 18.0 H Plt Count 236 ESR APTT POC Glucose (mg/dL) 242 H Hemoglobin A1c Iron TIBC % Saturation Ferritin Folate Blood Type Blood Type Confirm Antibody Screen Crossmatch BBK History Checked Assessment & Plan - Assessment and Plan (Free Text) Assessment: 80 year old male with bilateral leg venous stasis dermatitis, secondary to venous insufficiency, with potential underlying cellulitis. Plan: Pt evaluated and treated at bedside. Chart, labs, and vitals reviewed. Afebrile , WBC=14.2K. Discussed with attending Dr. Arora. X-rays ordered and reviewed , negative for overt signs of foot and leg gas or abscess. Venous duplex results: negative for DVT Dressed blister sites w/ xeroform, abd, DSD, and YADIRA. Continue IV abx per ID. Podiatry will continue to follow this patient while inhouse. Thank you for allowing Podiatry service to participate in the care of this patient. - Date & Time Date: 07/11/16 Time: 08:15
[2016-07-11] MEDS: Insulin Regular 100 units/ml SC SCH ×4 (08:50→21:23)
--- NOTE | 2016-07-11 10:19 | CP.PCM.PN ---
Subjective - Date & Time of Evaluation Date of Evaluation: 07/11/16 Time of Evaluation: 10:17 - Subjective Subjective: General Surgery - Dr Roa Pt S&E. NAEO. Pt denies any abdominal pain. He had dialysis cath placed yesterday. He is tolerating regular diet and denies any N/V, F/C. Objective - Vital Signs/Intake and Output Vital Signs (last 24 hours): Temp Pulse Resp BP Pulse Ox 97.9 F 71 18 98/47 L 99 07/11/16 08:12 07/11/16 08:12 07/11/16 08:12 07/11/16 08:46 07/11/16 08:12 - Medications Medications: Current Medications Acetaminophen (Tylenol 325mg Tab) 650 mg PO Q6 PRN PRN Reason: Pain, moderate (4-7) Allopurinol (Zyloprim) 100 mg PO DAILY [facility] Last Admin: 07/11/16 08:51 Dose: 100 mg Atorvastatin Calcium (Lipitor) 80 mg PO DAILY [facility] Last Admin: 07/11/16 09:25 Dose: 80 mg Carvedilol (Coreg) 12.5 mg PO BID [facility] Last Admin: 07/11/16 08:46 Dose: Not Given Dextrose (Dextrose 50% Inj) 0 ml IVP STAT PRN; Protocol PRN Reason: Hypoglycemia Protocol Ezetimibe (Zetia) 10 mg PO HS [facility] Last Admin: 07/10/16 21:40 Dose: 10 mg Ergocalciferol (Drisdol 50,000 Intl Units Cap) 1 cap PO QWK [facility] Gabapentin (Neurontin) 300 mg PO BID [facility] Last Admin: 07/11/16 08:51 Dose: 300 mg Glucagon (Glucagen Diagnostic Kit) 0 mg IM STAT PRN; Protocol PRN Reason: Hypoglycemia Protocol Heparin Sodium (Porcine) (Heparin) 5,000 units SC Q8 [facility] PRN Reason: Protocol Last Admin: 07/11/16 09:26 Dose: 5,000 units Heparin Sodium (Porcine) (Heparin 1000 Units/ Ml 30ml) 2,000 u IV ONCE [facility] PRN Reason: Protocol Stop: 07/17/16 13:01 Piperacillin Sod/Tazobactam (Sod 2.25 gm/ Sodium Chloride) 100 mls @ 100 mls/ hr IVPB Q8 [facility] Last Admin: 07/11/16 08:52 Dose: 100 mls/hr Vancomycin HCl 1,000 mg/ (Sodium Chloride) 100 mls @ 100 mls/hr IVPB POSTDI ONE Stop: 07/11/16 11:59 Insulin Human Regular (Humulin R) 0 units SC ACHS [facility] PRN Reason: Protocol Last Admin: 07/11/16 08:50 Dose: 2 u Sevelamer HCl (Renagel) 800 mg PO TID [facility] Last Admin: 07/11/16 08:46 Dose: 800 mg Sitagliptin Phosphate (Januvia) 25 mg PO DAILY [facility] Last Admin: 07/11/16 08:50 Dose: 25 mg Tamsulosin HCl (Flomax) 0.4 mg PO DAILY [facility] Last Admin: 07/11/16 08:50 Dose: 0.4 mg - Labs Labs: 07/11/16 07:00 07/11/16 07:00 PT 11.7 SECONDS (9.6-11.2) H 07/09/16 21:00 INR 1.13 (0.92-1.08) H 07/09/16 21:00 APTT 32.0 SECONDS (23.3-32.5) 07/10/16 05:35 - Constitutional Appears: No Acute Distress - Head Exam Head Exam: ATRAUMATIC, NORMAL INSPECTION, NORMOCEPHALIC - Eye Exam Eye Exam: Normal appearance - Respiratory Exam Respiratory Exam: NORMAL BREATHING PATTERN. absent: Respiratory Distress - Cardiovascular Exam Cardiovascular Exam: REGULAR RHYTHM - GI/Abdominal Exam GI & Abdominal Exam: Distended, Soft. absent: Firm, Guarding, Tenderness, Rebound - Neurological Exam Neurological Exam: Alert, Oriented x3 - Psychiatric Exam Psychiatric exam: Normal Affect, Normal Mood - Skin Skin Exam: Dry, Intact Assessment and Plan - Assessment and Plan (Free Text) Assessment: 80 yo M w/ morbid obesity, DM, HTN, Acute on CKD, surgery consulted for poss. cholecystitis -Pt. remains Asymptomatic, WBC trending down -U/S negative for acute cholecystitis -No plans for surgical intervention -Surgery will Sign-off, thank you for allowing us to participate in the care of this patient Dw Dr. Crispin Triplett PGY2
--- NOTE | 2016-07-11 11:56 | CARD ---
APPROVED REPORT EXAM: Two-dimensional and M-mode echocardiogram with Doppler and color Doppler. Other Information Quality : GoodRhythm : NSR INDICATION Hypertension/HCVD Effusion 2D DIMENSIONS IVSd1.18 (0.7-1.1cm)LVDd5.64 (3.9-5.9cm) LVOT Diameter2.56 (1.8-2.4cm)PWd1.10 (0.7-1.1cm) IVSs1.89 (0.8-1.2cm)LVDs3.58 (2.5-4.0cm) FS (%) 36.5 %PWs1.60 (0.8-1.2cm) M-Mode DIMENSIONS Left Atrium (MM)5.19 (2.5-4.0cm)IVSd0.60 (0.7-1.1cm) Aortic Root3.08 (2.2-3.7cm)LVDd6.49 (4.0-5.6cm) Aortic Cusp Exc.2.08 (1.5-2.0cm)PWd0.96 (0.7-1.1cm) IVSs1.26 cmFS (%) 46 % LVDs3.51 (2.0-3.8cm)PWs1.46 cm Aortic Valve AoV Peak Uqtrlrhb956.3cm/sAoV VTI49.5cmAO Peak GR.13mmHg LVOT Peak Qjcoksad14.0cm/sLVOT VTI18.55cmAO Mean GR.8mmHg SARAH (VMAX)0.36ko0JVU (VTI)0.90cm2 Mitral Valve MV E Bjgmvxdv35.2cm/sMV DECEL CLRS239dmPA A Bboogceo89.9cm/s MV XAC84xvF/A ratio1.4MVA (PHT)3.77cm2 TDI Lateral E' Peak V10.02cm/sMedial E' Peak V8.31cm/sE/Lateral E'9.7 E/Medial E'11.7 Tricuspid Valve TR Peak Chidrpmj304kk/sRAP UYMYMSTI35vnYwYC Peak Gr.30mmHg MUUX68ehKc LEFT VENTRICLE The left ventricle is normal size. There is normal left ventricular wall thickness. The left ventricular function is normal. The left ventricular ejection fraction is within the normal range. The Ejection Fraction is 60-65%. There is normal LV segmental wall motion. The left ventricular diastolic function is normal. No left ventricle thrombus noted on this study. There is no mass noted in the left ventricle. RIGHT VENTRICLE The right ventricle is normal size. There is normal right ventricular wall thickness. The right ventricular systolic function is normal. ATRIA The left atrium size is normal. The right atrium size is normal. The interatrial septum is intact with no evidence for an atrial septal defect. AORTIC VALVE The aortic valve is moderately thickened. No aortic regurgitation is present. There is moderate valvular aortic stenosis. There is no aortic valvular vegetation. MITRAL VALVE The mitral valve is normal in structure and function. There is no evidence of mitral valve prolapse. There is no mitral valve stenosis. Mitral regurgitation is mild. TRICUSPID VALVE The tricuspid valve is normal in structure and function. There is no tricuspid valve regurgitation noted. There is no tricuspid valve prolapse or vegetation. There is no tricuspid valve stenosis. PULMONIC VALVE The pulmonary valve is normal in structure and function. There is no pulmonic valvular regurgitation. There is no pulmonic valvular stenosis. GREAT VESSELS The aortic root is normal in size. The IVC is normal in size and collapses >50% with inspiration. PERICARDIAL EFFUSION The pericardium appears normal. There is no pleural effusion. <Conclusion> The left ventricle is normal size. The left ventricular function is normal. The left ventricular ejection fraction is within the normal range. The Ejection Fraction is 60-65%. Mitral regurgitation is mild. The aortic valve is moderately thickened. There is moderate valvular aortic stenosis.
[2016-07-11] MEDS ORDERED: Heparin Sodium (Porcine) 1,000 U/ML 30ML IV SCH (13:00)
[2016-07-11] MEDS ORDERED: Bismuth Subsalicylate 262 mg/15 ml Sus (240 ml) PO PRN (17:33)
--- NOTE | 2016-07-11 21:25 | CP.PCM.PN ---
Subjective - Date & Time of Evaluation Date of Evaluation: 07/11/16 Time of Evaluation: 12:00 - Subjective Subjective: SEEN ON RENAL F/U SEEN ON HIS FIRST HD TOLERATING WELL WILL RECIEVE 1 UNIT PEBC ON HD FOR 2ND HD IN AM ALONG WITH 2ND UNIT PRBC FEELS LITTLE BETTER ALL PREVIOUS EMR REVIEWED LABS REVIEWED Objective - Vital Signs/Intake and Output Vital Signs (last 24 hours): Temp Pulse Resp BP Pulse Ox 97.4 F L 82 20 99/60 L 98 07/11/16 19:47 07/11/16 19:47 07/11/16 19:47 07/11/16 19:47 07/11/16 19:47 - Medications Medications: Current Medications Acetaminophen (Tylenol 325mg Tab) 650 mg PO Q6 PRN PRN Reason: Pain, moderate (4-7) Allopurinol (Zyloprim) 100 mg PO DAILY [facility] Last Admin: 07/11/16 08:51 Dose: 100 mg Atorvastatin Calcium (Lipitor) 80 mg PO DAILY [facility] Last Admin: 07/11/16 09:25 Dose: 80 mg Bismuth Subsalicylate (Pepto-Bismol) 524 mg PO Q6H PRN PRN Reason: Diarrhea Carvedilol (Coreg) 12.5 mg PO BID [facility] Last Admin: 07/11/16 17:00 Dose: Not Given Dextrose (Dextrose 50% Inj) 0 ml IVP STAT PRN; Protocol PRN Reason: Hypoglycemia Protocol Ezetimibe (Zetia) 10 mg PO HS [facility] Last Admin: 07/10/16 21:40 Dose: 10 mg Ergocalciferol (Drisdol 50,000 Intl Units Cap) 1 cap PO QWK [facility] Gabapentin (Neurontin) 300 mg PO BID [facility] Last Admin: 07/11/16 17:11 Dose: 300 mg Glucagon (Glucagen Diagnostic Kit) 0 mg IM STAT PRN; Protocol PRN Reason: Hypoglycemia Protocol Heparin Sodium (Porcine) (Heparin) 5,000 units SC Q8 [facility] PRN Reason: Protocol Last Admin: 07/11/16 17:08 Dose: Not Given Heparin Sodium (Porcine) (Heparin) 2,000 units IVP ONCE [facility] PRN Reason: Protocol Stop: 07/17/16 16:01 Last Admin: 07/11/16 16:03 Dose: 2,000 units Piperacillin Sod/Tazobactam (Sod 2.25 gm/ Sodium Chloride) 100 mls @ 100 mls/ hr IVPB Q8 [facility] Last Admin: 07/11/16 17:10 Dose: 100 mls/hr Insulin Human Regular (Humulin R) 0 units SC ACHS [facility] PRN Reason: Protocol Last Admin: 07/11/16 17:11 Dose: 2 u Sevelamer HCl (Renagel) 800 mg PO TID [facility] Last Admin: 07/11/16 17:11 Dose: 800 mg Sitagliptin Phosphate (Januvia) 25 mg PO DAILY [facility] Last Admin: 07/11/16 08:50 Dose: 25 mg Tamsulosin HCl (Flomax) 0.4 mg PO DAILY [facility] Last Admin: 07/11/16 08:50 Dose: 0.4 mg - Labs Labs: 07/11/16 07:00 07/11/16 07:00 PT 11.7 SECONDS (9.6-11.2) H 07/09/16 21:00 INR 1.13 (0.92-1.08) H 07/09/16 21:00 APTT 32.0 SECONDS (23.3-32.5) 07/10/16 05:35 Assessment and Plan - Assessment and Plan (Free Text) Assessment: A ON CKD PROCEEDING TO ESRD .. HD TODAY AND TOMORROW NEXT WEEK HD ON SW TO FAX PAPERS TO [facility] [place] HD SPOT C/O CURRENT CARE C/O CURRENT MANAGEMENT NEEDS TO CHANGE SHILY TO TUNNELLED CATH BY IR NEXT WEEK FOR AVF AN OUT PT
[2016-07-12] MEDS: Insulin Regular 100 units/ml SC SCH ×4 (06:43→22:07)
[2016-07-12 07:59] LABS: HEMATOCRIT 27.6 % (35.0-51.0); MEAN CELL VOLUME 85.5 fl (80.0-94.0); MEAN CORPUSCULAR HEMOGLOBIN 26.9 pg (27.0-31.0); MEAN CORPUSCULAR HGB CONC 31.5 g/dL (33.0-37.0); RED CELL DISTRIBUTION WIDTH 17.8 % (11.5-14.5)
--- NOTE | 2016-07-12 07:59 | PN ---
DATE: 07/12/2016 The patient seen and examined. Interim events noted. Consults noted, appreciated. Neurology and parkinson rgical followup and intervention noted and appreciated. The patient remains in progressive care unit on telemetry monitoring. Denies any specific complaint of chest pain or shortness of breath. ____ better. PHYSICAL EXAMINATION: GENERAL: The patient is in no acute distress. VITAL SIGNS: Stable. HEART: S1, S2 normal, regular. LUNGS: Good bilateral air entry. ABDOMEN: Soft, nontender. No sign of acute abdomen. No guarding, no rigidity, no rebound. Bowel s ounds are present, normal. EXTREMITIES: As per fur joiner. Rn Placement's consult noted and appreciated. CENTRAL NERVOUS SYSTEM: Essentially unchanged. DIAGNOSTIC DATA: Available diagnostic data reviewed. Telemetry monitoring does not reveal significa nt arrhythmias. Overall, the patient's general medical condition is stable. Tolerating dialysis very well. PLAN: As ordered. Tang Solorio MD cc: [id number] TT: 07/12/2016 07:59:23 Confirmation # [id number] Dictation # [id number]
[2016-07-12 08:24] LABS: CALCIUM 7.8 mg/dL (8.4-10.2); POTASSIUM 4.4 MMOL/L (3.6-5.0)
--- NOTE | 2016-07-12 08:45 | CP.PCM.PN ---
Subjective - Date & Time of Evaluation Date of Evaluation: 07/12/16 Time of Evaluation: 09:00 - Subjective Subjective: 80 year old male was seen resting comfortably at bedside with attending, Dr. Arora regarding bilateral lower extremity redness and swelling. Patient is a poor historian and currently getting dialysis. Denies any n/v/f/c/sob/cp. Objective - Vital Signs/Intake and Output Vital Signs (last 24 hours): Temp Pulse Resp BP Pulse Ox 98.6 F 75 20 100/62 96 07/12/16 08:04 07/12/16 08:04 07/12/16 08:04 07/12/16 08:04 07/12/16 08:04 - Medications Medications: Current Medications Acetaminophen (Tylenol 325mg Tab) 650 mg PO Q6 PRN PRN Reason: Pain, moderate (4-7) Last Admin: 07/12/16 01:17 Dose: 650 mg Allopurinol (Zyloprim) 100 mg PO DAILY [facility] Last Admin: 07/11/16 08:51 Dose: 100 mg Atorvastatin Calcium (Lipitor) 80 mg PO DAILY [facility] Last Admin: 07/11/16 09:25 Dose: 80 mg Bismuth Subsalicylate (Pepto-Bismol) 524 mg PO Q6H PRN PRN Reason: Diarrhea Carvedilol (Coreg) 12.5 mg PO BID [facility] Last Admin: 07/11/16 17:00 Dose: Not Given Dextrose (Dextrose 50% Inj) 0 ml IVP STAT PRN; Protocol PRN Reason: Hypoglycemia Protocol Ezetimibe (Zetia) 10 mg PO HS [facility] Last Admin: 07/11/16 21:25 Dose: 10 mg Ergocalciferol (Drisdol 50,000 Intl Units Cap) 1 cap PO QWK [facility] Gabapentin (Neurontin) 300 mg PO BID [facility] Last Admin: 07/11/16 17:11 Dose: 300 mg Glucagon (Glucagen Diagnostic Kit) 0 mg IM STAT PRN; Protocol PRN Reason: Hypoglycemia Protocol Heparin Sodium (Porcine) (Heparin) 5,000 units SC Q8 [facility] PRN Reason: Protocol Last Admin: 07/12/16 01:10 Dose: 5,000 units Heparin Sodium (Porcine) (Heparin) 2,000 units IVP ONCE [facility] PRN Reason: Protocol Stop: 07/17/16 16:01 Last Admin: 07/11/16 16:03 Dose: 2,000 units Piperacillin Sod/Tazobactam (Sod 2.25 gm/ Sodium Chloride) 100 mls @ 100 mls/ hr IVPB Q8 [facility] Last Admin: 07/12/16 01:11 Dose: 100 mls/hr Insulin Human Regular (Humulin R) 0 units SC ACHS [facility] PRN Reason: Protocol Last Admin: 07/12/16 06:43 Dose: 2 units Sevelamer HCl (Renagel) 800 mg PO TID [facility] Last Admin: 07/11/16 17:11 Dose: 800 mg Sitagliptin Phosphate (Januvia) 25 mg PO DAILY [facility] Last Admin: 07/11/16 08:50 Dose: 25 mg Tamsulosin HCl (Flomax) 0.4 mg PO DAILY [facility] Last Admin: 07/11/16 08:50 Dose: 0.4 mg - Labs Labs: 07/11/16 07:00 07/12/16 06:00 PT 11.7 SECONDS (9.6-11.2) H 07/09/16 21:00 INR 1.13 (0.92-1.08) H 07/09/16 21:00 APTT 32.0 SECONDS (23.3-32.5) 07/10/16 05:35 - Constitutional Appears: No Acute Distress, Chronically Ill - Extremities Exam Additional comments: Lower extremity focused exam: VASC: DP and PT pulses palpable bilaterally, graded 2/4 and 1/4 respectively. DP pulses likely weaker due to pedal edema. +1 pitting edema noted to lower extremities b/l- resolving from yesterday and relaxed skin tension lines noted DERM: Diffuse bilateral lower leg blanchable erythema extending from proximal 1/ 3 of leg terminating superior to the ankle joints with accompanying dyshydrotic epidermal patches. Left leg exhibits turgid un-ruptured serous filled vesicles. Right leg noted to have 3 unroof bulla with weeping serous exudate along anterior-lateral margin of proximal 1/3 of leg. NEURO: Unable to obtain due to pts non-communicatory status. ORTHO: No gross deformities noted. - Neurological Exam Neurological Exam: Alert, Awake, Oriented x3 - Psychiatric Exam Psychiatric exam: Normal Affect, Normal Mood Assessment and Plan - Assessment and Plan (Free Text) Assessment: 80 year old male with bilateral leg venous stasis dermatitis, secondary to venous insufficiency, with potential underlying cellulitis. Plan: Patient examined and evaluated with attending, Dr. Arora Chart, labs, and vitals reviewed. Afebrile, WBC=14.2 (07/11/16). Discussed with attending Dr. Arora. Dressed blister sites w/ xeroform, abd, DSD, and YADIRA. Continue IV abx per ID. Podiatry will continue to follow this patient while inhouse.
--- NOTE | 2016-07-12 10:06 | CP.PCM.PN ---
Subjective - Date & Time of Evaluation Date of Evaluation: 07/12/16 Time of Evaluation: 08:43 - Subjective Subjective: pt seen this am for ulcers of lower leg . see resident note . Objective - Vital Signs/Intake and Output Vital Signs (last 24 hours): Temp Pulse Resp BP Pulse Ox 98.6 F 75 20 100/62 96 07/12/16 08:04 07/12/16 08:04 07/12/16 08:04 07/12/16 08:04 07/12/16 08:04 - Medications Medications: Current Medications Acetaminophen (Tylenol 325mg Tab) 650 mg PO Q6 PRN PRN Reason: Pain, moderate (4-7) Last Admin: 07/12/16 09:38 Dose: 650 mg Allopurinol (Zyloprim) 100 mg PO DAILY [facility] Last Admin: 07/12/16 09:40 Dose: 100 mg Atorvastatin Calcium (Lipitor) 80 mg PO DAILY [facility] Last Admin: 07/12/16 09:40 Dose: 80 mg Bismuth Subsalicylate (Pepto-Bismol) 524 mg PO Q6H PRN PRN Reason: Diarrhea Carvedilol (Coreg) 12.5 mg PO BID [facility] Last Admin: 07/11/16 17:00 Dose: Not Given Dextrose (Dextrose 50% Inj) 0 ml IVP STAT PRN; Protocol PRN Reason: Hypoglycemia Protocol Ezetimibe (Zetia) 10 mg PO HS [facility] Last Admin: 07/11/16 21:25 Dose: 10 mg Ergocalciferol (Drisdol 50,000 Intl Units Cap) 1 cap PO QWK [facility] Gabapentin (Neurontin) 300 mg PO BID [facility] Last Admin: 07/12/16 09:40 Dose: 300 mg Glucagon (Glucagen Diagnostic Kit) 0 mg IM STAT PRN; Protocol PRN Reason: Hypoglycemia Protocol Heparin Sodium (Porcine) (Heparin) 5,000 units SC Q8 [facility] PRN Reason: Protocol Last Admin: 07/12/16 09:41 Dose: 2,000 units Heparin Sodium (Porcine) (Heparin) 2,000 units IVP ONCE [facility] PRN Reason: Protocol Stop: 07/17/16 16:01 Last Admin: 07/11/16 16:03 Dose: 2,000 units Piperacillin Sod/Tazobactam (Sod 2.25 gm/ Sodium Chloride) 100 mls @ 100 mls/ hr IVPB Q8 [facility] Last Admin: 07/12/16 09:41 Dose: Not Given Insulin Human Regular (Humulin R) 0 units SC ACHS [facility] PRN Reason: Protocol Last Admin: 07/12/16 06:43 Dose: 2 units Sevelamer HCl (Renagel) 800 mg PO TID [facility] Last Admin: 07/12/16 09:39 Dose: 800 mg Sitagliptin Phosphate (Januvia) 25 mg PO DAILY [facility] Last Admin: 07/12/16 09:39 Dose: 25 mg Tamsulosin HCl (Flomax) 0.4 mg PO DAILY [facility] Last Admin: 07/12/16 09:39 Dose: 0.4 mg - Labs Labs: 07/12/16 06:00 07/12/16 06:00 PT 11.7 SECONDS (9.6-11.2) H 07/09/16 21:00 INR 1.13 (0.92-1.08) H 07/09/16 21:00 APTT 32.0 SECONDS (23.3-32.5) 07/10/16 05:35
--- NOTE | 2016-07-12 11:40 | RAD ---
PROCEDURE: Radiographs of the bilateral Tibiae and Fibulae. HISTORY: r/o soft tissue emphasema COMPARISON: None available. TECHNIQUE: Frontal and lateral views obtained of the left and right tibia and fibula. FINDINGS: BONES: RIGHT TIBIA: No fracture or destructive lesion. No periosteal reaction is seen. LEFT TIBIA: No fracture or destructive lesion. No periosteal reaction is seen. JOINT SPACES: RIGHT TIBIA: Normal. LEFT TIBIA: Normal. SOFT TISSUES: RIGHT TIBIA: Diffuse soft tissue swelling and edema are noted. No appreciable areas identified in the soft tissues. LEFT TIBIA: Diffuse soft tissue swelling and edema are noted. No appreciable areas identified in the soft tissues. OTHER FINDINGS: None. IMPRESSION: No evidence of fracture. No plain film evidence of osteomyelitis. Bilateral lower leg soft tissue swelling without emphysema in the soft tissues.
--- NOTE | 2016-07-12 11:43 | RAD ---
PROCEDURE: Right and left foot x-ray HISTORY: r/o soft tissue emphasema COMPARISON: Lower leg x-ray same day TECHNIQUE: Two views of the right foot and left foot were performed. FINDINGS: Mild diffuse soft tissue swelling is identified in the right foot and to a lesser degree in the left foot. No air is seen within the soft tissues. Vascular calcification is noted. No fracture is seen. No bone destruction is noted. There is some chronic appearing changes in the proximal phalanges of the 3rd through 5th toes of the left foot and 4th and 5th toes of the right foot which may be related to projection and/or prior trauma. No erosions are identified. Mild degenerative changes of the 1st metatarsal phalangeal joints are noted. No periosteal reaction is seen. No fracture is noted. Subtalar joints are unremarkable. Talar domes are normal in outline. IMPRESSION: Nonspecific diffuse soft tissue swelling suggesting cellulitis. Vascular calcification. No appreciable fracture. No definite plain film evidence of osteomyelitis. If osteomyelitis still remains of strong clinical concern, MRI would be suggested for further evaluation.
[2016-07-13 06:57] LABS: HEMATOCRIT 28.2 % (35.0-51.0); MEAN CELL VOLUME 86.2 fl (80.0-94.0); MEAN CORPUSCULAR HEMOGLOBIN 27.4 pg (27.0-31.0); MEAN CORPUSCULAR HGB CONC 31.8 g/dL (33.0-37.0); RED CELL DISTRIBUTION WIDTH 17.8 % (11.5-14.5)
--- NOTE | 2016-07-13 07:23 | CP.PCM.PN ---
Subjective - Date & Time of Evaluation Date of Evaluation: 07/12/16 Time of Evaluation: 16:00 - Subjective Subjective: SEEN ON RENAL F/U NOT DOING WELL .. ASPIRATED ? PER AND STAFF .. CHOKED WHILE EATING HIS BREAKFAST APPEARS OBTUNDED TODAY ..LESS RESPONSIVE .. MUMBLING PER .. LOOKED AND FELT VERY WELL ALL YESTERDAY AND ESPECIALLY POST HD AND 1 U PRBC TODAY IS DIFFERENT .. NOT RESPONDING WELL Objective - Vital Signs/Intake and Output Vital Signs (last 24 hours): Temp Pulse Resp BP Pulse Ox 98.8 F 75 21 135/66 95 07/13/16 04:38 07/13/16 04:38 07/13/16 04:38 07/13/16 04:38 07/13/16 04:38 - Medications Medications: Current Medications Acetaminophen (Tylenol 325mg Tab) 650 mg PO Q6 PRN PRN Reason: Pain, moderate (4-7) Last Admin: 07/12/16 09:38 Dose: 650 mg Acetaminophen (Tylenol 325mg Tab) 650 mg PO Q6 PRN PRN Reason: Fever >100.4 F Last Admin: 07/12/16 22:24 Dose: 650 mg Allopurinol (Zyloprim) 100 mg PO DAILY [facility] Last Admin: 07/12/16 09:40 Dose: 100 mg Atorvastatin Calcium (Lipitor) 80 mg PO DAILY [facility] Last Admin: 07/12/16 09:40 Dose: 80 mg Bismuth Subsalicylate (Pepto-Bismol) 524 mg PO Q6H PRN PRN Reason: Diarrhea Carvedilol (Coreg) 12.5 mg PO BID [facility] Last Admin: 07/12/16 17:06 Dose: Not Given Dextrose (Dextrose 50% Inj) 0 ml IVP STAT PRN; Protocol PRN Reason: Hypoglycemia Protocol Ezetimibe (Zetia) 10 mg PO HS [facility] Last Admin: 07/12/16 22:06 Dose: 10 mg Ergocalciferol (Drisdol 50,000 Intl Units Cap) 1 cap PO QWK [facility] Gabapentin (Neurontin) 300 mg PO BID [facility] Last Admin: 07/12/16 17:08 Dose: 300 mg Glucagon (Glucagen Diagnostic Kit) 0 mg IM STAT PRN; Protocol PRN Reason: Hypoglycemia Protocol Heparin Sodium (Porcine) (Heparin) 5,000 units SC Q8 [facility] PRN Reason: Protocol Last Admin: 07/13/16 04:55 Dose: 5,000 units Heparin Sodium (Porcine) (Heparin) 2,000 units IVP ONCE [facility] PRN Reason: Protocol Stop: 07/17/16 16:01 Last Admin: 07/11/16 16:03 Dose: 2,000 units Piperacillin Sod/Tazobactam (Sod 2.25 gm/ Sodium Chloride) 100 mls @ 100 mls/ hr IVPB Q8 [facility] Last Admin: 07/13/16 04:54 Dose: 100 mls/hr Insulin Human Regular (Humulin R) 0 units SC ACHS [facility] PRN Reason: Protocol Last Admin: 07/12/16 22:07 Dose: Not Given Sevelamer HCl (Renagel) 800 mg PO TID [facility] Last Admin: 07/12/16 17:08 Dose: 800 mg Sitagliptin Phosphate (Januvia) 25 mg PO DAILY [facility] Last Admin: 07/12/16 09:39 Dose: 25 mg Tamsulosin HCl (Flomax) 0.4 mg PO DAILY [facility] Last Admin: 07/12/16 09:39 Dose: 0.4 mg - Labs Labs: 07/12/16 06:00 07/12/16 06:00 PT 11.7 SECONDS (9.6-11.2) H 07/09/16 21:00 INR 1.13 (0.92-1.08) H 07/09/16 21:00 APTT 32.0 SECONDS (23.3-32.5) 07/10/16 05:35 Assessment and Plan - Assessment and Plan (Free Text) Assessment: ESRD STERTED ON HD .. RECIEVED HD FRI ALONG WITH 1 U PRBC RECIEVED 2ND HD SAT ALONG WITH 2ND U PRBC S/P R SHILY CATH IN THE R IJ ANEMA OF CKD .. R/O OTHER CAUSES .. RECIEVED 2 U PRBC R/O SP PNA MULTIPLE CO MORBIDITIES P ; C/O PRESENT CARE
[2016-07-13 07:28] LABS: ALB/GLOB RATIO 0.7 (1.0-2.1); BILIRUBIN,TOTAL 1.3 mg/dl (0.2-1.3); CALCIUM 7.8 mg/dL (8.4-10.2); POTASSIUM 4.5 MMOL/L (3.6-5.0); TOTAL PROTEIN 6.9 G/DL (6.3-8.2)
[2016-07-13] MEDS: Insulin Regular 100 units/ml SC SCH ×5 (07:37→22:22)
--- NOTE | 2016-07-13 07:50 | PN ---
DATE: 07/13/2016 The patient seen and examined. Interim events noted. Consults noted, appreciated. The patient duane ins in progressive care unit. The patient is sleepy, arousable, not too well communicative, but pham es any specific complaint. No chest pain, no shortness of breath. PHYSICAL EXAMINATION: GENERAL: The patient is in no acute distress. VITAL SIGNS: Stable. HEART: S1, S2 normal, regular. LUNGS: Good bilateral air entry. ABDOMEN: Soft, nontender. EXTREMITIES: No edema, no calf swelling. The patient has chronic cellulitis and a blister leading t o small ulcer, superficial. CENTRAL NERVOUS SYSTEM: Essentially unchanged. DIAGNOSTIC DATA: Available reviewed. Blood cultures are positive for gram-positive cocci. The reyna ent is under appropriate antibiotics. Infectious disease consult is pending. Telemetry monitoring d oes not reveal significant arrhythmia. Overall, patient's general medical condition is slowly improving. PLAN: As ordered. Tang Solorio MD cc: [id number] TT: 07/13/2016 07:49:57 Confirmation # [id number] Dictation # [id number]
--- NOTE | 2016-07-13 11:12 | RAD ---
PROCEDURE: CHEST RADIOGRAPH, 1 VIEW HISTORY: lethargy, WBC 20 COMPARISON: 07/09/2016 FINDINGS: LUNGS: Low lung volumes with vascular congestion and crowding at the lung bases. PLEURA: Small bilateral effusions, slightly greater on the right. New right internal jugular vein central line with its tip in the superior vena cava. No pneumothorax CARDIOVASCULAR: Heart is enlarged. 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 Vasculature is congested. OSSEOUS STRUCTURES: No significant abnormalities. VISUALIZED UPPER ABDOMEN: Normal. OTHER FINDINGS: None. IMPRESSION: Status post right central vein catheter placement. No pneumothorax. Low lung volumes with mild vascular congestion and small effusions.
--- NOTE | 2016-07-13 11:31 | CP.PCM.PN ---
Subjective - Date & Time of Evaluation Date of Evaluation: 07/13/16 Time of Evaluation: 11:05 - Subjective Subjective: 80 year old male was seen resting comfortably at bedside regarding bilateral lower extremity redness and swelling. Patient is more verbal today than yesterday. Objective - Vital Signs/Intake and Output Vital Signs (last 24 hours): Temp Pulse Resp BP Pulse Ox 99 F 68 20 113/69 99 07/13/16 07:56 07/13/16 09:15 07/13/16 07:56 07/13/16 09:15 07/13/16 07:56 - Medications Medications: Current Medications Acetaminophen (Tylenol 325mg Tab) 650 mg PO Q6 PRN PRN Reason: Pain, moderate (4-7) Last Admin: 07/12/16 09:38 Dose: 650 mg Acetaminophen (Tylenol 325mg Tab) 650 mg PO Q6 PRN PRN Reason: Fever >100.4 F Last Admin: 07/12/16 22:24 Dose: 650 mg Allopurinol (Zyloprim) 100 mg PO DAILY [facility] Last Admin: 07/13/16 09:14 Dose: 100 mg Atorvastatin Calcium (Lipitor) 80 mg PO DAILY [facility] Last Admin: 07/13/16 09:14 Dose: 80 mg Bismuth Subsalicylate (Pepto-Bismol) 524 mg PO Q6H PRN PRN Reason: Diarrhea Carvedilol (Coreg) 12.5 mg PO BID [facility] Last Admin: 07/13/16 09:15 Dose: Not Given Dextrose (Dextrose 50% Inj) 0 ml IVP STAT PRN; Protocol PRN Reason: Hypoglycemia Protocol Ezetimibe (Zetia) 10 mg PO HS [facility] Last Admin: 07/12/16 22:06 Dose: 10 mg Ergocalciferol (Drisdol 50,000 Intl Units Cap) 1 cap PO QWK [facility] Gabapentin (Neurontin) 300 mg PO BID [facility] Last Admin: 07/13/16 09:13 Dose: 300 mg Glucagon (Glucagen Diagnostic Kit) 0 mg IM STAT PRN; Protocol PRN Reason: Hypoglycemia Protocol Heparin Sodium (Porcine) (Heparin) 5,000 units SC Q8 [facility] PRN Reason: Protocol Last Admin: 07/13/16 09:13 Dose: 5,000 units Heparin Sodium (Porcine) (Heparin) 2,000 units IVP ONCE [facility] PRN Reason: Protocol Stop: 07/17/16 16:01 Last Admin: 07/11/16 16:03 Dose: 2,000 units Piperacillin Sod/Tazobactam (Sod 2.25 gm/ Sodium Chloride) 100 mls @ 100 mls/ hr IVPB Q8 [facility] Last Admin: 07/13/16 09:12 Dose: 100 mls/hr Insulin Human Regular (Humulin R) 0 units SC ACHS [facility] PRN Reason: Protocol Last Admin: 07/13/16 07:37 Dose: 4 units Sevelamer HCl (Renagel) 800 mg PO TID [facility] Last Admin: 07/13/16 09:13 Dose: 800 mg Sitagliptin Phosphate (Januvia) 25 mg PO DAILY [facility] Last Admin: 07/13/16 09:14 Dose: 25 mg Tamsulosin HCl (Flomax) 0.4 mg PO DAILY [facility] Last Admin: 07/13/16 09:14 Dose: 0.4 mg - Labs Labs: 07/13/16 06:20 07/13/16 06:20 PT 11.7 SECONDS (9.6-11.2) H 07/09/16 21:00 INR 1.13 (0.92-1.08) H 07/09/16 21:00 APTT 32.0 SECONDS (23.3-32.5) 07/10/16 05:35 - Constitutional Appears: No Acute Distress - Extremities Exam Additional comments: Lower extremity focused exam: VASC: DP and PT pulses palpable bilaterally, graded 2/4 and 1/4 respectively. DP pulses likely weaker due to pedal edema. +1 pitting edema noted to lower extremities b/l- resolving from yesterday as relaxed skin tension lines noted DERM: Diffuse bilateral lower leg blanchable erythema extending from proximal 1/ 3 of leg terminating superior to the ankle joints with accompanying dyshydrotic epidermal patches. Left leg exhibits turgid un-ruptured serous filled vesicles. Right leg noted to have 3 unroof bulla with weeping serous exudate along anterior-lateral margin of proximal 1/3 of leg. NEURO: Unable to obtain due to pts non-communicatory status. ORTHO: No gross deformities noted. - Neurological Exam Neurological Exam: Alert, Awake, Oriented x3 - Psychiatric Exam Psychiatric exam: Normal Affect, Normal Mood Assessment and Plan - Assessment and Plan (Free Text) Assessment: 80 year old male with bilateral leg venous stasis dermatitis, secondary to venous insufficiency, with potential underlying cellulitis. Plan: Patient examined and evaluated Discussed with attending, Dr. Arora Chart, labs, and vitals reviewed. Afebrile, WBC=14.0 (07/13/16). Dressed blister sites w/ xeroform, abd, DSD, and YADIRA. Continue IV abx per ID. Podiatry will continue to follow this patient while in house
--- NOTE | 2016-07-13 13:40 | CP.PCM.CON ---
History of Present Illness - History of Present Illness History of Present Illness: 80 year old male [place]ox[place] patient with a pertinent medical history of HTN, diabetes , prostate BPH and unspecified renal disease presents to the ED with complaints of abdominal pain tat started 2x weeks ago. He reports that 2x weeks ago he started having mid right abdominal pain that radiated to his lower back. He also reports having a change (decrease) in urine output and swelling in his lower extremities. e denies having any other symptoms including fever, nausea, vomiting, diarrhea, and shortness of breath. being treated for cellulitis and sepsis found to have + blood c/s source unclear- vs GI vs skin vs endovascular/ endocarditis Echo/ AQUILINO recommended IV antibiotics ordered Past Patient History - Past Medical History & Family History Past Medical History?: Yes - Past Social History Smoking Status: Never Smoked - CARDIAC Hx Hypertension: Yes - RENAL Hx Renal Failure: Yes - ENDOCRINE/METABOLIC Hx Endocrine Disorders: Yes Hx Diabetes Mellitus Type 2: Yes - HEMATOLOGICAL/ONCOLOGICAL Hx Blood Disorders: Yes - MUSCULOSKELETAL/RHEUMATOLOGICAL Hx Falls: No - GENITOURINARY/GYNECOLOGICAL Hx Prostate Problems: Yes (BPH) - PSYCHIATRIC Hx Substance Use: No - ANESTHESIA Hx Anesthesia: No Hx Anesthesia Reactions: No Meds Allergies/Adverse Reactions: Allergies Allergy/AdvReac Type Severity Reaction Status Date / Time No Known Allergies Allergy Verified 07/09/16 20:05 - Medications Medications: Current Medications Acetaminophen (Tylenol 325mg Tab) 650 mg PO Q6 PRN PRN Reason: Pain, moderate (4-7) Last Admin: 07/12/16 09:38 Dose: 650 mg Acetaminophen (Tylenol 325mg Tab) 650 mg PO Q6 PRN PRN Reason: Fever >100.4 F Last Admin: 07/12/16 22:24 Dose: 650 mg Allopurinol (Zyloprim) 100 mg PO DAILY [facility] Last Admin: 07/13/16 09:14 Dose: 100 mg Atorvastatin Calcium (Lipitor) 80 mg PO DAILY [facility] Last Admin: 07/13/16 09:14 Dose: 80 mg Bismuth Subsalicylate (Pepto-Bismol) 524 mg PO Q6H PRN PRN Reason: Diarrhea Carvedilol (Coreg) 12.5 mg PO BID [facility] Last Admin: 07/13/16 09:15 Dose: Not Given Dextrose (Dextrose 50% Inj) 0 ml IVP STAT PRN; Protocol PRN Reason: Hypoglycemia Protocol Ezetimibe (Zetia) 10 mg PO HS [facility] Last Admin: 07/12/16 22:06 Dose: 10 mg Ergocalciferol (Drisdol 50,000 Intl Units Cap) 1 cap PO QWK [facility] Gabapentin (Neurontin) 300 mg PO BID [facility] Last Admin: 07/13/16 09:13 Dose: 300 mg Glucagon (Glucagen Diagnostic Kit) 0 mg IM STAT PRN; Protocol PRN Reason: Hypoglycemia Protocol Heparin Sodium (Porcine) (Heparin) 5,000 units SC Q8 [facility] PRN Reason: Protocol Last Admin: 07/13/16 09:13 Dose: 5,000 units Heparin Sodium (Porcine) (Heparin) 2,000 units IVP ONCE [facility] PRN Reason: Protocol Stop: 07/17/16 16:01 Last Admin: 07/11/16 16:03 Dose: 2,000 units Piperacillin Sod/Tazobactam (Sod 2.25 gm/ Sodium Chloride) 100 mls @ 100 mls/ hr IVPB Q8 [facility] Last Admin: 07/13/16 09:12 Dose: 100 mls/hr Vancomycin HCl 1 gm/ Sodium (Chloride) 250 mls @ 166.667 mls/hr IVPB DAILY [facility] Insulin Human Regular (Humulin R) 0 units SC ACHS [facility] PRN Reason: Protocol Last Admin: 07/13/16 07:37 Dose: 4 units Sevelamer HCl (Renagel) 800 mg PO TID [facility] Last Admin: 07/13/16 09:13 Dose: 800 mg Sitagliptin Phosphate (Januvia) 25 mg PO DAILY [facility] Last Admin: 07/13/16 09:14 Dose: 25 mg Tamsulosin HCl (Flomax) 0.4 mg PO DAILY [facility] Last Admin: 07/13/16 09:14 Dose: 0.4 mg Physical Exam - Constitutional Appears: Confused, Chronically Ill - Head Exam Head Exam: ATRAUMATIC, NORMAL INSPECTION, NORMOCEPHALIC - Eye Exam Eye Exam: EOMI, PERRL. absent: Scleral icterus - ENT Exam ENT Exam: Mucous Membranes Dry, Normal External Ear Exam - Neck Exam Neck exam: Negative for: Lymphadenopathy - Respiratory Exam Respiratory Exam: Decreased Breath Sounds, Rhonchi - Cardiovascular Exam Cardiovascular Exam: REGULAR RHYTHM, +S1, +S2 - GI/Abdominal Exam GI & Abdominal Exam: Diminished Bowel Sounds, Distended, Soft. absent: Rebound , Rigid, Tenderness - Rectal Exam Rectal Exam: Deferred - Exam Exam: NORMAL INSPECTION - Extremities Exam Extremities exam: Positive for: pedal edema, pedal pulses present. Negative for : calf tenderness Additional comments: VASC: DP and t pulses fully palpable bilaterally, graded 2/4 and 1/4 respectively. DP pulses likely weaker due to pedal edema. DERM: Diffuse bilateral lower leg blanchable erythema extending from proximal 1/ 3 of leg terminating superior to the ankle joints with accompanying dyshydrotic epidermal patches. Left leg exhibits turgid un-ruptured serous filled vesicles. Right leg noted to have 3 unroof bulla with weeping serous exudate along anterior-lateral margin of proximal 1/3 of leg. NEURO: Unable to obtain due to pts non-communicatory status. ORTHO: Pedal muscle strength graded a 5/5 despite no response to verbal stimuli , pt able to resist displacement in 4 major pedal muscle groups. No gross deformities noted. - Back Exam Back exam: absent: CVA tenderness (L), CVA tenderness (R), paraspinal tenderness - Neurological Exam Neurological exam: Alert, Altered, CN II-XII Intact - Psychiatric Exam Psychiatric exam: Depressed - Skin Skin Exam: Dry, Intact Results - Vital Signs Recent Vital Signs: Last Vital Signs Temp 99 F 07/13/16 11:57 Pulse 70 07/13/16 11:57 Resp 21 07/13/16 11:57 BP 99/49 L 07/13/16 11:57 Pulse Ox 99 07/13/16 11:57 - Labs Result Diagrams: 07/13/16 06:20 07/13/16 06:20 Labs: Laboratory Results - last 24 hr 07/10/16 07/12/16 07/12/16 16:54 15:55 21:14 WBC RBC Hgb Hct MCV MCH MCHC RDW Plt Count Sodium Potassium Chloride Carbon Dioxide Anion Gap BUN Creatinine Est GFR ( Amer) Est GFR (Non-Af Amer) POC Glucose (mg/dL) 184 H 230 H Random Glucose Calcium Total Bilirubin AST ALT Alkaline Phosphatase Total Protein Albumin Globulin Albumin/Globulin Ratio Blood Type O POSITIVE Antibody Screen Negative Crossmatch See Detail BBK History Checked No verified bt 07/13/16 07/13/16 07/13/16 05: 06:20 06:20 WBC 14.0 H RBC 3.27 L Hgb 9.0 L Hct 28.2 L MCV 86.2 MCH 27.4 MCHC 31.8 L RDW 17.8 H Plt Count 256 Sodium 134 Potassium 4.5 Chloride 96 L Carbon Dioxide 21 L Anion Gap 22 H BUN 55 H Creatinine 5.0 H Est GFR ( Amer) 14 Est GFR (Non-Af Amer) 11 POC Glucose (mg/dL) 327 H Random Glucose 294 H Calcium 7.8 L Total Bilirubin 1.3 AST 24 ALT 21 Alkaline Phosphatase 248 H Total Protein 6.9 Albumin 2.8 L Globulin 4.1 H Albumin/Globulin Ratio 0.7 L Blood Type Antibody Screen Crossmatch BBK History Checked 07/13/16 11:03 WBC RBC Hgb Hct MCV MCH MCHC RDW Plt Count Sodium Potassium Chloride Carbon Dioxide Anion Gap BUN Creatinine Est GFR ( Amer) Est GFR (Non-Af Amer) POC Glucose (mg/dL) 296 H Random Glucose Calcium Total Bilirubin AST ALT Alkaline Phosphatase Total Protein Albumin Globulin Albumin/Globulin Ratio Blood Type Antibody Screen Crossmatch BBK History Checked Assessment & Plan (1) Acute kidney failure Status: Acute (2) Cellulitis of right lower extremity Status: Acute (3) Bacteremia Status: Acute (4) Bacteremia Status: Acute - Assessment and Plan (Free Text) Assessment: consider cardio eval for endocarditis/ AQUILINO will need GI eval to r/o occult GI malignancy given + Blood c/s for strep anginosus
--- NOTE | 2016-07-14 06:28 | CP.PCM.PN ---
Subjective - Date & Time of Evaluation Date of Evaluation: 07/14/16 Time of Evaluation: 06:50 - Subjective Subjective: 80 year old male was seen resting comfortably at bedside regarding bilateral lower extremity redness and swelling. Objective - Vital Signs/Intake and Output Vital Signs (last 24 hours): Temp Pulse Resp BP Pulse Ox 97.6 F 68 20 102/65 97 07/14/16 04:41 07/14/16 04:41 07/14/16 04:41 07/14/16 04:41 07/14/16 04:41 - Medications Medications: Current Medications Acetaminophen (Tylenol 325mg Tab) 650 mg PO Q6 PRN PRN Reason: Pain, moderate (4-7) Last Admin: 07/12/16 09:38 Dose: 650 mg Acetaminophen (Tylenol 325mg Tab) 650 mg PO Q6 PRN PRN Reason: Fever >100.4 F Last Admin: 07/12/16 22:24 Dose: 650 mg Allopurinol (Zyloprim) 100 mg PO DAILY [facility] Last Admin: 07/13/16 09:14 Dose: 100 mg Atorvastatin Calcium (Lipitor) 80 mg PO DAILY [facility] Last Admin: 07/13/16 09:14 Dose: 80 mg Bismuth Subsalicylate (Pepto-Bismol) 524 mg PO Q6H PRN PRN Reason: Diarrhea Carvedilol (Coreg) 12.5 mg PO BID [facility] Last Admin: 07/13/16 22:19 Dose: 12.5 mg Dextrose (Dextrose 50% Inj) 0 ml IVP STAT PRN; Protocol PRN Reason: Hypoglycemia Protocol Ezetimibe (Zetia) 10 mg PO HS [facility] Last Admin: 07/13/16 22:19 Dose: 10 mg Ergocalciferol (Drisdol 50,000 Intl Units Cap) 1 cap PO QWK [facility] Gabapentin (Neurontin) 300 mg PO BID [facility] Last Admin: 07/13/16 16:30 Dose: Not Given Glucagon (Glucagen Diagnostic Kit) 0 mg IM STAT PRN; Protocol PRN Reason: Hypoglycemia Protocol Heparin Sodium (Porcine) (Heparin) 5,000 units SC Q8 [facility] PRN Reason: Protocol Last Admin: 07/14/16 00:44 Dose: 5,000 units Heparin Sodium (Porcine) (Heparin) 2,000 units IVP ONCE [facility] PRN Reason: Protocol Stop: 07/17/16 16:01 Last Admin: 07/11/16 16:03 Dose: 2,000 units Piperacillin Sod/Tazobactam (Sod 2.25 gm/ Sodium Chloride) 100 mls @ 100 mls/ hr IVPB Q8 [facility] Last Admin: 07/14/16 00:45 Dose: 100 mls/hr Vancomycin HCl 1 gm/ Sodium (Chloride) 250 mls @ 166.667 mls/hr IVPB DAILY [facility] Last Admin: 07/13/16 16:28 Dose: 166.667 mls/hr Insulin Human Regular (Humulin R) 0 units SC ACHS [facility] PRN Reason: Protocol Last Admin: 07/13/16 22:22 Dose: Not Given Sevelamer HCl (Renagel) 800 mg PO TID [facility] Last Admin: 07/13/16 16:30 Dose: Not Given Sitagliptin Phosphate (Januvia) 25 mg PO DAILY [facility] Last Admin: 07/13/16 09:14 Dose: 25 mg Tamsulosin HCl (Flomax) 0.4 mg PO DAILY [facility] Last Admin: 07/13/16 09:14 Dose: 0.4 mg - Labs Labs: 07/13/16 06:20 07/13/16 06:20 PT 11.7 SECONDS (9.6-11.2) H 07/09/16 21:00 INR 1.13 (0.92-1.08) H 07/09/16 21:00 APTT 32.0 SECONDS (23.3-32.5) 07/10/16 05:35 - Constitutional Appears: No Acute Distress, Chronically Ill - Extremities Exam Additional comments: Lower extremity focused exam: VASC: DP and PT pulses palpable bilaterally, graded 2/4 and 1/4 respectively. DP pulses likely weaker due to pedal edema. +1 pitting edema noted to lower extremities b/l- resolving from yesterday as relaxed skin tension lines noted DERM: Diffuse bilateral lower leg blanchable erythema extending from proximal 1/ 3 of leg terminating superior to the ankle joints with accompanying dyshydrotic epidermal patches. Left leg exhibits turgid un-ruptured serous filled vesicles. Right leg noted to have 3 unroof bulla with weeping serous exudate along anterior-lateral margin of proximal 1/3 of leg. NEURO: Unable to obtain due to pts non-communicatory status. ORTHO: No gross deformities noted. - Neurological Exam Neurological Exam: Alert, Awake, Oriented x3 - Psychiatric Exam Psychiatric exam: Normal Affect, Normal Mood Assessment and Plan - Assessment and Plan (Free Text) Assessment: 80 year old male with bilateral leg venous stasis dermatitis, secondary to venous insufficiency Plan: Patient examined and evaluated Discussed with attending, Dr. Arora Chart, labs, and vitals reviewed. Afebrile, WBC=14.8 (07/14/16). Dressed blister sites w/ xeroform, abd, DSD, and YADIRA. Continue IV abx per ID. Podiatry will continue to follow this patient while in house
[2016-07-14] MEDS: Insulin Regular 100 units/ml SC SCH ×3 (06:52→16:30)
[2016-07-14 07:22] LABS: HEMATOCRIT 29.1 % (35.0-51.0); MEAN CELL VOLUME 86.4 fl (80.0-94.0); MEAN CORPUSCULAR HEMOGLOBIN 27.5 pg (27.0-31.0); MEAN CORPUSCULAR HGB CONC 31.8 g/dL (33.0-37.0); RED CELL DISTRIBUTION WIDTH 18.3 % (11.5-14.5); WHITE BLOOD COUNT 14.8 K/uL (4.8-10.8)
[2016-07-14 07:34] LABS: ALB/GLOB RATIO 0.7 (1.0-2.1); CALCIUM 7.9 mg/dL (8.4-10.2); POTASSIUM 4.8 MMOL/L (3.6-5.0); TOTAL PROTEIN 7.2 G/DL (6.3-8.2)
--- NOTE | 2016-07-14 08:34 | PN ---
DATE: 07/14/2016 The patient is seen and examined. Interim events noted. Consults noted and appreciated. The patient remains in progressive care unit on telemetry monitoring. The patient is sleepy, arousable, feels okay. Not too conversant, He does not offer any specific complaints. PHYSICAL EXAMINATION: GENERAL: The patient is in no acute distress. VITAL SIGNS: Stable. HEART: S1, S2 normal, regular. LUNGS: Good bilateral air entry. ABDOMEN: Soft, nontender. EXTREMITIES: The patient still has edema, and no sign of any acute distal neurovascular compromise. CENTRAL NERVOUS SYSTEM: Essentially unchanged. DIAGNOSTIC DATA: Available diagnostic data reviewed. Telemetry monitoring does not reveal significant arrhythmias. Overall, the patient's general medical condition is hemodynemically stable. PLAN: As ordered. Tang Solorio MD cc: [id number] TT: 07/14/2016 08:34:17 Confirmation # [id number] Dictation # [id number] [id number]
[2016-07-14] MEDS ORDERED: Sodium Chloride 3% for Inhalation 4 ML VIAL.NEB IH PRN (11:48)
[2016-07-14] MEDS ORDERED: Albuterol-Ipratrop 3 mg / 0.5 (3 ml) UD INH PRN (11:48)
--- NOTE | 2016-07-14 12:20 | CP.PCM.PN ---
Subjective - Date & Time of Evaluation Date of Evaluation: 07/14/16 Time of Evaluation: 09:00 - Subjective Subjective: being treated for cellulitis and sepsis found to have + blood c/s source unclear- vs GI vs skin vs endovascular/ endocarditis Echo/ AQUILINO recommended IV antibiotics ordered Objective - Vital Signs/Intake and Output Vital Signs (last 24 hours): Temp Pulse Resp BP Pulse Ox 97.0 F L 64 20 116/78 97 07/14/16 12:17 07/14/16 12:17 07/14/16 12:17 07/14/16 12:17 07/14/16 12:17 - Medications Medications: Current Medications Acetaminophen (Tylenol 325mg Tab) 650 mg PO Q6 PRN PRN Reason: Pain, moderate (4-7) Last Admin: 07/12/16 09:38 Dose: 650 mg Acetaminophen (Tylenol 325mg Tab) 650 mg PO Q6 PRN PRN Reason: Fever >100.4 F Last Admin: 07/12/16 22:24 Dose: 650 mg Albuterol/Ipratropium (Duoneb 3 Mg/0.5 Mg (3 Ml) Ud) 3 ml INH RQ4 PRN PRN Reason: Shortness of Breath Allopurinol (Zyloprim) 100 mg PO DAILY [facility] Last Admin: 07/14/16 09:01 Dose: 100 mg Atorvastatin Calcium (Lipitor) 80 mg PO DAILY [facility] Last Admin: 07/14/16 08:57 Dose: 80 mg Bismuth Subsalicylate (Pepto-Bismol) 524 mg PO Q6H PRN PRN Reason: Diarrhea Carvedilol (Coreg) 12.5 mg PO BID [facility] Last Admin: 07/14/16 08:55 Dose: Not Given Dextrose (Dextrose 50% Inj) 0 ml IVP STAT PRN; Protocol PRN Reason: Hypoglycemia Protocol Ezetimibe (Zetia) 10 mg PO HS [facility] Last Admin: 07/13/16 22:19 Dose: 10 mg Ergocalciferol (Drisdol 50,000 Intl Units Cap) 1 cap PO QWK [facility] Gabapentin (Neurontin) 300 mg PO BID [facility] Last Admin: 07/14/16 08:58 Dose: 300 mg Glucagon (Glucagen Diagnostic Kit) 0 mg IM STAT PRN; Protocol PRN Reason: Hypoglycemia Protocol Heparin Sodium (Porcine) (Heparin) 5,000 units SC Q8 [facility] PRN Reason: Protocol Last Admin: 07/14/16 08:56 Dose: 5,000 units Heparin Sodium (Porcine) (Heparin) 2,000 units IVP ONCE [facility] PRN Reason: Protocol Stop: 07/17/16 16:01 Last Admin: 07/11/16 16:03 Dose: 2,000 units Piperacillin Sod/Tazobactam (Sod 2.25 gm/ Sodium Chloride) 100 mls @ 100 mls/ hr IVPB Q8 [facility] Last Admin: 07/14/16 09:01 Dose: 100 mls/hr Vancomycin HCl 1 gm/ Sodium (Chloride) 250 mls @ 166.667 mls/hr IVPB DAILY [facility] Last Admin: 07/14/16 09:00 Dose: 166.667 mls/hr Insulin Human Regular (Humulin R) 0 units SC ACHS [facility] PRN Reason: Protocol Last Admin: 07/14/16 06:52 Dose: 4 units Sevelamer HCl (Renagel) 800 mg PO TID [facility] Last Admin: 07/14/16 09:03 Dose: 800 mg Sitagliptin Phosphate (Januvia) 25 mg PO DAILY [facility] Last Admin: 07/14/16 08:58 Dose: 25 mg Tamsulosin HCl (Flomax) 0.4 mg PO DAILY [facility] Last Admin: 07/14/16 08:56 Dose: 0.4 mg - Labs Labs: 07/14/16 05:30 07/14/16 05:30 PT 11.7 SECONDS (9.6-11.2) H 07/09/16 21:00 INR 1.13 (0.92-1.08) H 07/09/16 21:00 APTT 32.0 SECONDS (23.3-32.5) 07/10/16 05:35 - Constitutional Appears: Non-toxic, Chronically Ill - Head Exam Head Exam: NORMOCEPHALIC - Eye Exam Eye Exam: PERRL. absent: Scleral icterus - ENT Exam ENT Exam: Mucous Membranes Dry - Neck Exam Neck Exam: absent: Lymphadenopathy - Respiratory Exam Respiratory Exam: Decreased Breath Sounds, Rhonchi - Cardiovascular Exam Cardiovascular Exam: REGULAR RHYTHM - GI/Abdominal Exam GI & Abdominal Exam: Distended, Soft Assessment and Plan (1) Acute kidney failure Status: Acute (2) Cellulitis of right lower extremity Status: Acute (3) Bacteremia Status: Acute (4) Bacteremia Status: Acute
--- NOTE | 2016-07-14 14:13 | CP.CCUPN ---
CCU Subjective - Physician Review Events Since Last Encounter (Free Text): 07/14/16 18:36 The Patient was seen and examined at the bedside, Medical records reviewed, all clinical/lab/hemodynamic/radiographic data were reviewed and management issues were discussed and formulated, Events reviewed Pain issues, skin care, head of the bed elevation, GI/DVT prophylaxis, glycemic control were addressed. He was transferred to the ICU following cardiac arrest this morning, now orally intubated, Unresponsive to painful stimuli 80-year-old male with a pertinent medical history of HTN, diabetes, BPH and CKD Who initially presents to the ED on 07/10 with complaints of abdominal pain started 2x weeks ago and bloating. He was found to have acute on CKD and underwent CT abdomen/pelvis which showed a distended GB suspicious for cholecystitis, Surgery and nephrology was consulted, Currently also on IV antibiotics for aspiration pneumonia. He has been lethargic, and was sent today for head and chest CT scan, after completion of the test, [employer] was called then changed in 3 minutes into code blue He was coded for 10 minutes, received 4 rounds of Epinephrine also got IV Calcium gluconate, Intubated with 7.5 ET tube ROSC achieved and was transferred to ICU. CXR reviewed and ETT repositioned Patient will not receive HD today due to hemodynamic instability Patient hypotensive, Levophed was started and Right femoral TLC was placed CCU Objective - Vital Signs / Intake & Output Vital Signs (Last 4 hours): Vital Signs Temp Pulse Resp BP Pulse Ox 07/14/16 12:17 97.0 F L 64 20 116/78 97 - Physical Exam Head: Positive for: Atraumatic, Normocephalic Pupils: Positive for: Non-Reactive, Other (PATIENT HAS CATARCT SURGERY) Extroacular Muscles: Negative for: EOMI Conjunctiva: Negative for: Injected, Icteric Ears: Negative for: Normal Mouth: Positive for: Moist Mucous Membranes Pharnyx: Positive for: Normal Neck: Positive for: Trachea Midline. Negative for: JVD, Lymphadenopathy, Bruit Respiratory/Chest: Positive for: Decreased Breath Sounds, Rales, Rhonchi. Negative for: Respiratory Distress, Accessory Muscle Use, Wheezes, Retracting, Tachypneic Cardiovascular: Positive for: Regular Rate and Rhythm, Normal S1, S2, Peripheal Pulses Present. Negative for: Murmurs, Irregular Rhythm, Tachycardic, Bradycardic Abdomen: Positive for: Normal Bowel Sounds. Negative for: Tenderness, Distention - Medications Active Medications: Active Medications Generic Name Dose Route Start Last Admin Trade Name Freq PRN Reason Stop Dose Admin Acetaminophen 650 mg 07/10/16 02:12 07/12/16 09:38 Tylenol 325mg Tab PO 650 mg Q6 PRN Administration Pain, moderate (4-7) Acetaminophen 650 mg 07/12/16 22:03 07/12/16 22:24 Tylenol 325mg Tab PO 650 mg Q6 PRN Administration Fever >100.4 F Albuterol/Ipratropium 3 ml 07/14/16 11:48 Duoneb 3 Mg/0.5 Mg (3 Ml) Ud INH RQ4 PRN Shortness of Breath Allopurinol 100 mg 07/10/16 09:00 07/14/16 09:01 Zyloprim PO 100 mg DAILY MARIA GUADALUPE Administration Atorvastatin Calcium 80 mg 07/10/16 09:00 07/14/16 08:57 Lipitor PO 80 mg DAILY MARIA GUADALUPE Administration Bismuth Subsalicylate 524 mg 07/11/16 17:33 Pepto-Bismol PO Q6H PRN Diarrhea Carvedilol 12.5 mg 07/10/16 09:00 07/14/16 08:55 Coreg PO Not Given BID MARIA GUADALUPE Dextrose 0 ml 07/10/16 15:13 Dextrose 50% Inj IVP STAT PRN Hypoglycemia Protocol Protocol Ezetimibe 10 mg 07/10/16 22:00 07/13/16 22:19 Zetia PO 10 mg HS MARIA GUADALUPE Administration Ergocalciferol 1 cap 07/10/16 02:30 Drisdol 50,000 Intl Units Cap PO QWK MARIA GUADALUPE Gabapentin 300 mg 07/10/16 09:00 07/14/16 08:58 Neurontin PO 300 mg BID MARIA GUADALUPE Administration Glucagon 0 mg 07/10/16 15:13 Glucagen Diagnostic Kit IM STAT PRN Hypoglycemia Protocol Protocol Heparin Sodium (Porcine) 5,000 units 07/10/16 02:15 07/14/16 08:56 Heparin SC 5,000 units Q8 MARIA GUADALUPE Administration Protocol Heparin Sodium (Porcine) 2,000 units 07/11/16 16:00 07/11/16 16:03 Heparin IVP 07/17/16 16:01 2,000 units ONCE MARIA GUADALUPE Administration Protocol Piperacillin Sod/Tazobactam 100 mls @ 100 mls/hr 07/11/16 01:00 07/14/16 09: 01 Sod 2.25 gm/ Sodium Chloride IVPB 100 mls/hr Q8 MARIA GUADALUPE Administration Vancomycin HCl 1 gm/ Sodium 250 mls @ 166.667 mls/hr 07/13/16 17:00 07/14/16 09:00 Chloride IVPB 166.667 mls/hr DAILY MARIA GUADALUPE Administration Insulin Human Regular 0 units 07/10/16 07:30 07/14/16 12:32 Humulin R SC 4 units ACHS MARIA GUADALUPE Administration Protocol Sevelamer HCl 800 mg 07/10/16 09:00 07/14/16 12:40 Renagel PO Not Given TID MARIA GUADALUPE Sitagliptin Phosphate 25 mg 07/10/16 09:00 07/14/16 08:58 Januvia PO 25 mg DAILY MARIA GUADALUPE Administration Tamsulosin HCl 0.4 mg 07/10/16 09:00 07/14/16 08:56 Flomax PO 0.4 mg DAILY MARIA GUADALUPE Administration - Patient Studies Lab Studies: Lab Studies 07/14/16 07/14/16 07/14/16 Range/Units 11:15 05:30 05:30 WBC (4.8-10.8) K/uL RBC (4.40-5.90) Mil/uL Hgb (12.0-18.0) g/dL Hct (35.0-51.0) % MCV (80.0-94.0) fl MCH (27.0-31.0) pg MCHC (33.0-37.0) g/dL RDW (11.5-14.5) % Plt Count (130-400) K/uL Sodium 135 (132-148) mmol/l Potassium 4.8 (3.6-5.0) MMOL/L Chloride 96 L (98-107) mmol/L Carbon Dioxide 24 (22-30) mmol/L Anion Gap 20 (10-20) BUN 72 H (9-20) mg/dl Creatinine 6.4 H (0.8-1.5) mg/dL Est GFR ( Amer) 10 Est GFR (Non-Af Amer) 8 POC Glucose (mg/dL) 311 H 342 H (65-110) mg/dL Random Glucose 361 H (75-110) mg/dL Calcium 7.9 L (8.4-10.2) mg/dL Total Bilirubin 1.0 (0.2-1.3) mg/dl AST 26 (17-59) U/L ALT 21 (21-72) U/L Alkaline Phosphatase 322 H D (38-126) U/L Total Protein 7.2 (6.3-8.2) G/DL Albumin 2.9 L (3.5-5.0) g/dL Globulin 4.3 H (2.2-3.9) gm/dL Albumin/Globulin Ratio 0.7 L (1.0-2.1) C. difficile Ag & Toxin (NEGATIVE) 07/14/16 07/13/16 07/13/16 Range/Units 05:30 22:19 16:17 WBC 14.8 H (4.8-10.8) K/uL RBC 3.37 L (4.40-5.90) Mil/uL Hgb 9.3 L (12.0-18.0) g/dL Hct 29.1 L (35.0-51.0) % MCV 86.4 (80.0-94.0) fl MCH 27.5 (27.0-31.0) pg MCHC 31.8 L (33.0-37.0) g/dL RDW 18.3 H (11.5-14.5) % Plt Count 246 (130-400) K/uL Sodium (132-148) mmol/l Potassium (3.6-5.0) MMOL/L Chloride (98-107) mmol/L Carbon Dioxide (22-30) mmol/L Anion Gap (10-20) BUN (9-20) mg/dl Creatinine (0.8-1.5) mg/dL Est GFR ( Amer) Est GFR (Non-Af Amer) POC Glucose (mg/dL) 316 H 305 H (65-110) mg/dL Random Glucose (75-110) mg/dL Calcium (8.4-10.2) mg/dL Total Bilirubin (0.2-1.3) mg/dl AST (17-59) U/L ALT (21-72) U/L Alkaline Phosphatase (38-126) U/L Total Protein (6.3-8.2) G/DL Albumin (3.5-5.0) g/dL Globulin (2.2-3.9) gm/dL Albumin/Globulin Ratio (1.0-2.1) C. difficile Ag & Toxin (NEGATIVE) 07/11/16 Range/Units 08:39 WBC (4.8-10.8) K/uL RBC (4.40-5.90) Mil/uL Hgb (12.0-18.0) g/dL Hct (35.0-51.0) % MCV (80.0-94.0) fl MCH (27.0-31.0) pg MCHC (33.0-37.0) g/dL RDW (11.5-14.5) % Plt Count (130-400) K/uL Sodium (132-148) mmol/l Potassium (3.6-5.0) MMOL/L Chloride (98-107) mmol/L Carbon Dioxide (22-30) mmol/L Anion Gap (10-20) BUN (9-20) mg/dl Creatinine (0.8-1.5) mg/dL Est GFR ( Amer) Est GFR (Non-Af Amer) POC Glucose (mg/dL) (65-110) mg/dL Random Glucose (75-110) mg/dL Calcium (8.4-10.2) mg/dL Total Bilirubin (0.2-1.3) mg/dl AST (17-59) U/L ALT (21-72) U/L Alkaline Phosphatase (38-126) U/L Total Protein (6.3-8.2) G/DL Albumin (3.5-5.0) g/dL Globulin (2.2-3.9) gm/dL Albumin/Globulin Ratio (1.0-2.1) C. difficile Ag & Toxin Negative (NEGATIVE) Laboratory Results - last 24 hr 07/11/16 07/13/16 07/13/16 08:39 16:17 22:19 WBC RBC Hgb Hct MCV MCH MCHC RDW Plt Count Sodium Potassium Chloride Carbon Dioxide Anion Gap BUN Creatinine Est GFR ( Amer) Est GFR (Non-Af Amer) POC Glucose (mg/dL) 305 H 316 H Random Glucose Calcium Total Bilirubin AST ALT Alkaline Phosphatase Total Protein Albumin Globulin Albumin/Globulin Ratio C. difficile Ag & Toxin Negative 05/10/2307/14/16 07/14/16 05:30 05:30 05:30 WBC 14.8 H RBC 3.37 L Hgb 9.3 L Hct 29.1 L MCV 86.4 MCH 27.5 MCHC 31.8 L RDW 18.3 H Plt Count 246 Sodium 135 Potassium 4.8 Chloride 96 L Carbon Dioxide 24 Anion Gap 20 BUN 72 H Creatinine 6.4 H Est GFR ( Amer) 10 Est GFR (Non-Af Amer) 8 POC Glucose (mg/dL) 342 H Random Glucose 361 H Calcium 7.9 L Total Bilirubin 1.0 AST 26 ALT 21 Alkaline Phosphatase 322 H D Total Protein 7.2 Albumin 2.9 L Globulin 4.3 H Albumin/Globulin Ratio 0.7 L C. difficile Ag & Toxin 07/14/16 11:15 WBC RBC Hgb Hct MCV MCH MCHC RDW Plt Count Sodium Potassium Chloride Carbon Dioxide Anion Gap BUN Creatinine Est GFR ( Amer) Est GFR (Non-Af Amer) POC Glucose (mg/dL) 311 H Random Glucose Calcium Total Bilirubin AST ALT Alkaline Phosphatase Total Protein Albumin Globulin Albumin/Globulin Ratio C. difficile Ag & Toxin Fingerstick Blood Sugar Results: 311 Review of Systems - Review of Systems Systems not reviewed;Unavailable: Altered Mental Status Critical Care Progress Note - Ventilator Checklist Head of Bed 30 Degrees: Yes Daily Sedation Vacation: Yes Daily Assessment of Readiness to Wean: Yes Daily Spontaneous Breathing Trial: Yes PUD Prophalyxis: Yes DVT Prophylaxis: Yes Oral Care with Chlorhexidine Gluconate {CHG}: Yes - Extremities/Vascular Does the Patient have a Central Venous Catheter?: Yes Does the Patient need a Central Venous Catheter?: Yes Does the Patient have a [place] Catheter?: No Does the Patient need a [place] Catheter?: No - Nutrition Nutrition: Nutrition Category Date Time Status Dysphagia/Modified Consistency Diet [DIET] Diets 07/12/16 Dinner Active Assessment/Plan (1) Cardiac arrest Current Visit: Yes Status: Acute (2) Aspiration pneumonia Current Visit: Yes Status: Acute (3) Acute cholecystitis Current Visit: Yes Status: Acute (4) Acute kidney failure Current Visit: Yes Status: Acute (5) Anoxic brain injury Current Visit: Yes Status: Acute Priority: High - Assessment and Plan (Free Text) Assessment: TOTAL CRITICAL CARE TIME 68 MINUTES Plan: - Continue meds, reviewed - Frequent neuro-check Q 2H - HOB elevation >30 - Repoeat head CT scan when more stable - Continue Antibiotics with IV Zosyn 2.25mg q8 and Vancomycin - Wean off Levophed for MAP 65-75 - Full Vent support - G Tube feeding - Bronchodilator Nebs - Aggressive Pulmonary toilets - IV fluids - Strict Is & Os - Neurology/ID/Renal follow up Discussed with the family in details diagnosis, treatement plans and alternatives Patient is full code
--- NOTE | 2016-07-14 14:17 | CT ---
PROCEDURE: CT HEAD WITHOUT CONTRAST. HISTORY: AMS, lethargy COMPARISON: None available. TECHNIQUE: Axial computed tomography images were obtained through the head/brain without intravenous contrast. Radiation dose: Total exam DLP = 920.59 mGy-cm. This CT exam was performed using one or more of the following dose reduction techniques: Automated exposure control, adjustment of the mA and/or kV according to patient size, and/or use of iterative reconstruction technique. FINDINGS: Extensive streak artifact obscures evaluation of the skullbase. Excessive motion artifact degrades evaluation. HEMORRHAGE: No intracranial hemorrhage. BRAIN: Diffuse atrophy with prominence of the ventricles and sulci noted. No mass effect or edema. Intracranial atherosclerotic calcifications. Scattered periventricular and subcortical white matter hypodensities, which are nonspecific, but often seen with chronic microvascular ischemic disease. 4 mm right parietal hypodensity compatible with lacunar infarct. Please note that MRI with diffusion imaging is more sensitive in the detection of acute ischemic event. VENTRICLES: No hydrocephalus. CALVARIUM: Unremarkable. PARANASAL SINUSES: Unremarkable as visualized. No significant inflammatory changes. MASTOID AIR CELLS: Unremarkable as visualized. No inflammatory changes. OTHER FINDINGS: None. IMPRESSION: Motion and streak artifact degrade evaluation. At which time it becomes clinically feasible, recommend repeat study. Generalized atrophy. Nonspecific white matter changes. Evidence of 4 mm right parietal hypodensity consistent with lacunar infarct.
[2016-07-14] MEDS ORDERED: Sodium Chloride 0.9% 500 ML IV ONE (14:25)
--- NOTE | 2016-07-14 14:47 | CT ---
CT chest without IV contrast Indication: Shortness of breath, pleural effusion Technique: Contiguous axial images were obtained through the chest without intravenous contrast enhancement. Sagittal and coronal reconstructions were generated and reviewed. This CT exam was performed using 1 or more of the falling dose reduction techniques: Automated exposure control, adjustment of the MAA and/or kV according to patient size, and/or use of iterative reconstruction technique. Radiation dose (DLP): 786.21 MGy-cm. Comparison: Chest x-ray performed 07/12/16 Findings: Images degraded by respiratory and streak artifact. Examination limited by habitus. Right IJ approach central venous catheter extends the cavoatrial junction. Visualized portions of the inferior thyroid gland appear unremarkable. The unenhanced mediastinal and hilar vascular structures appear grossly unremarkable. Cardiomegaly. Dense coronary artery calcifications. Bilateral compressive consolidations. Small left and moderate right sided pleural effusions. Patchy left perihilar opacities compatible with pneumonia or atelectasis. Pulmonary venous congestion. Limited visualization of the noncontrast upper abdomen: Distended gallbladder. Extensive artifact obscures evaluation of the inferior posterior right hepatic lobe with questionable presence of hypodense focus indeterminate 5.5 cm low-density lesion arising from the left upper pole kidney. Pancreatic atrophy. Degenerative changes of the spine. Impression: Markedly limited study as above. Right IJ approach central venous catheter. Cardiomegaly. Dense coronary artery calcifications. Bilateral compressive consolidations. Small left and moderate right sided pleural effusions. Patchy left perihilar opacities compatible with pneumonia or atelectasis. Pulmonary venous congestion. Limited visualization of the noncontrast upper abdomen: Distended gallbladder. Extensive artifact obscures evaluation of the inferior posterior right hepatic lobe with questionable presence of hypodense focus indeterminate 5.5 cm low-density lesion arising from the left upper pole kidney. Pancreatic atrophy.
--- NOTE | 2016-07-14 14:55 | RAD ---
HISTORY: post intubation COMPARISON: Chest x-ray performed 07/12/16, chest CT performed 07/14/16 TECHNIQUE: Chest, one view. FINDINGS: Distal tip of the endotracheal tube terminates approximately 4.2 cm above the chandrakant. Right-sided central venous catheter extends to the cavoatrial junction. LUNGS: Moderate right and small left pleural effusions. Interstitial prominence may reflect infection or edema. No definite pneumothorax. Please note that chest x-ray has limited sensitivity for the detection of pulmonary masses. CARDIOVASCULAR: Cardiomegaly. OSSEOUS STRUCTURES: Degenerative changes of the spine. VISUALIZED UPPER ABDOMEN: Unremarkable. OTHER FINDINGS: None. IMPRESSION: Distal tip of the endotracheal tube terminates approximately 4.2 cm above the chandrakant. Right-sided central venous catheter extends to the cavoatrial junction. Moderate right and small left pleural effusions. Interstitial prominence may reflect infection or edema. Cardiomegaly.
--- NOTE | 2016-07-14 15:45 | CP.PCM.CON ---
History of Present Illness - History of Present Illness History of Present Illness: Mr. Montalvo is an 80-year-old man who was seen in the ICU after suffering from cardiac arrest at the CT scanner. He was coded for about 10 minutes until pulses were regained. The patient was initially admitted or septicemia and multiorgan failure. He developed encephalopathy fo which neurology was consulted. Currently, the patient's family is at bedside and the patient is not responsive to verbal or painful stimulus. He is not on any sedation and was not paralyzed during the intubation. Review of Systems - Review of Systems Systems not reviewed;Unavailable: Unstable Vital Signs, Respiratory Distress, Altered Mental Status, Intubated All systems: reviewed and no additional remarkable complaints except Past Patient History - Past Medical History & Family History Past Medical History?: Yes - Past Social History Smoking Status: Never Smoked - CARDIAC Hx Hypertension: Yes - RENAL Hx Renal Failure: Yes - ENDOCRINE/METABOLIC Hx Endocrine Disorders: Yes Hx Diabetes Mellitus Type 2: Yes - HEMATOLOGICAL/ONCOLOGICAL Hx Blood Disorders: Yes - MUSCULOSKELETAL/RHEUMATOLOGICAL Hx Falls: No - GENITOURINARY/GYNECOLOGICAL Hx Prostate Problems: Yes (BPH) - PSYCHIATRIC Hx Substance Use: No - ANESTHESIA Hx Anesthesia: No Hx Anesthesia Reactions: No Meds Allergies/Adverse Reactions: Allergies Allergy/AdvReac Type Severity Reaction Status Date / Time No Known Allergies Allergy Verified 07/09/16 20:05 - Medications Medications: Current Medications Acetaminophen (Tylenol 325mg Tab) 650 mg PO Q6 PRN PRN Reason: Pain, moderate (4-7) Last Admin: 07/12/16 09:38 Dose: 650 mg Acetaminophen (Tylenol 325mg Tab) 650 mg PO Q6 PRN PRN Reason: Fever >100.4 F Last Admin: 07/12/16 22:24 Dose: 650 mg Albuterol/Ipratropium (Duoneb 3 Mg/0.5 Mg (3 Ml) Ud) 3 ml INH RQ4 PRN PRN Reason: Shortness of Breath Allopurinol (Zyloprim) [address] [facility] Last Admin: 07/14/16 09:01 Dose: 100 mg Atorvastatin Calcium (Lipitor) [address] [facility] Last Admin: 07/14/16 08:57 Dose: 80 mg Bismuth Subsalicylate (Pepto-Bismol) 524 mg PO Q6H PRN PRN Reason: Diarrhea Carvedilol (Coreg) 12.[address] [facility] Last Admin: 07/14/16 08:55 Dose: Not Given Dextrose (Dextrose 50% Inj) 0 ml IVP STAT PRN; Protocol PRN Reason: Hypoglycemia Protocol Ezetimibe (Zetia) [address] [facility] Last Admin: 07/13/16 22:19 Dose: 10 mg Ergocalciferol (Drisdol 50,000 Intl Units Cap) [address] [facility] Gabapentin (Neurontin) [address] [facility] Last Admin: 07/14/16 08:58 Dose: 300 mg Glucagon (Glucagen Diagnostic Kit) 0 mg IM STAT PRN; Protocol PRN Reason: Hypoglycemia Protocol Heparin Sodium (Porcine) (Heparin) 5,[address] [facility] PRN Reason: Protocol Last Admin: 07/14/16 08:56 Dose: 5,000 units Heparin Sodium (Porcine) (Heparin) 2,[address] [facility] PRN Reason: Protocol Stop: 07/17/16 16:01 Last Admin: 07/11/16 16:03 Dose: 2,000 units Piperacillin Sod/Tazobactam (Sod 2.25 gm/ Sodium Chloride) 100 mls @ 100 mls/ hr IVPB Q8 [facility] Last Admin: 07/14/16 09:01 Dose: 100 mls/hr Vancomycin HCl 1 gm/ Sodium (Chloride) 250 mls @ 166.667 mls/hr IVPB DAILY [facility] Last Admin: 07/14/16 09:00 Dose: 166.667 mls/hr Insulin Human Regular (Humulin R) [address] [facility] PRN Reason: Protocol Last Admin: 07/14/16 12:32 Dose: 4 units Sevelamer HCl (Renagel) [address] [facility] Last Admin: 07/14/16 12:40 Dose: Not Given Sitagliptin Phosphate (Januvia) [address] [facility] Last Admin: 07/14/16 08:58 Dose: 25 mg Tamsulosin HCl (Flomax) 0.[address] [facility] Last Admin: 07/14/16 08:56 Dose: 0.4 mg Physical Exam - Constitutional Additional comments: Intubated and unresponsive to painful stimulus off sedation. - Eye Exam Pupil Exam: Fixed, Irregular, Unequal - ENT Exam Additional comments: Intubated - Neck Exam Neck exam: Positive for: Normal Inspection - Respiratory Exam Respiratory Exam: Respiratory Distress - Cardiovascular Exam Cardiovascular Exam: +S1, +S2 - GI/Abdominal Exam GI & Abdominal Exam: Distended - Rectal Exam Rectal Exam: Deferred - Extremities Exam Extremities exam: Positive for: pedal pulses present - Neurological Exam Additional comments: GCS of 3T. Gag reflex was present, but cornmeals and pupillary responses were absent. Results - Vital Signs Recent Vital Signs: Last Vital Signs Temp 97.0 F L 07/14/16 12:17 Pulse 64 07/14/16 12:17 Resp 20 07/14/16 12:17 BP 116/78 07/14/16 12:17 Pulse Ox 97 07/14/16 12:17 - Labs Result Diagrams: 07/14/16 05:30 07/14/16 05:30 Labs: Laboratory Results - last 24 hr 07/11/16 07/13/16 07/13/16 08:39 16:17 22:19 WBC RBC Hgb Hct MCV MCH MCHC RDW Plt Count Sodium Potassium Chloride Carbon Dioxide Anion Gap BUN Creatinine Est GFR ( Amer) Est GFR (Non-Af Amer) POC Glucose (mg/dL) 305 H 316 H Random Glucose Calcium Total Bilirubin AST ALT Alkaline Phosphatase Total Protein Albumin Globulin Albumin/Globulin Ratio C. difficile Ag & Toxin Negative 07/14/16 07/14/16 07/14/16 05:30 05:30 05:30 WBC 14.8 H RBC 3.37 L Hgb 9.3 L Hct 29.1 L MCV 86.4 MCH 27.5 MCHC 31.8 L RDW 18.3 H Plt Count 246 Sodium 135 Potassium 4.8 Chloride 96 L Carbon Dioxide 24 Anion Gap 20 BUN 72 H Creatinine 6.4 H Est GFR ( Amer) 10 Est GFR (Non-Af Amer) 8 POC Glucose (mg/dL) 342 H Random Glucose 361 H Calcium 7.9 L Total Bilirubin 1.0 AST 26 ALT 21 Alkaline Phosphatase 322 H D Total Protein 7.2 Albumin 2.9 L Globulin 4.3 H Albumin/Globulin Ratio 0.7 L C. difficile Ag & Toxin 07/14/16 11:15 WBC RBC Hgb Hct MCV MCH MCHC RDW Plt Count Sodium Potassium Chloride Carbon Dioxide Anion Gap BUN Creatinine Est GFR ( Amer) Est GFR (Non-Af Amer) POC Glucose (mg/dL) 311 H Random Glucose Calcium Total Bilirubin AST ALT Alkaline Phosphatase Total Protein Albumin Globulin Albumin/Globulin Ratio C. difficile Ag & Toxin - Imaging and Cardiology CT scan - head Status: Image reviewed by me, Report reviewed by me (Motion artifact present, but no acute bleed was noted. This was done before the [employer].) Assessment & Plan (1) Anoxic brain injury Assessment and Plan: The patient likely suffered cardiac arrest and was hypoxemic for about 10 minutes resulting in anoxic brain injury. I recommend repeating the CT head when the patient is more stable, continue pressers for BP support and cerebral perfusion (consider arterial line), DVT Px. Thank you very much for this consultation. Status: Acute Priority: High
--- NOTE | 2016-07-14 16:37 | PCM.PROC ---
Procedures Attestation:: I certify that I have explained the specified Operation(s) or Procedure(s), risks, benefits and reasonable alternatives to the Patient and/or other person responsible. The opportunity was given to ask questions and all questions answered - Central Line Placement Femoral Aseptic technique was employed throughout the procedure: Hand Hygiene done prior to procedure, Full sterile barriers (mask, hair cover, sterile gown, sterile gloves), Full body sterile drape, Chloraprep Antiseptic: 2 minute prep for Femoral CVP Time Out Performed: Yes Pt. Placed on Pulse Ox Monitor: Yes Central Line Prep: Chlorhexidine-Alcohol Combination Ultrasound Used for Placement: No Central Line Lumen Inserted: triple Central Line Length: 20 cm Post Procedure: Sutured in Place, Good Blood Return, All Ports Aspirated, Flushed, Capped (brown ports did not give a return), Sterile Dressing Applied Secured by: Suture Post procedure dressing: Chlorhexidine disc (Biopatch) Post Procedure X-Ray: No Patient Tolerated Procedure: No Complications Immediate Complications: None
[2016-07-14 16:46] LABS: ALB/GLOB RATIO 0.8 (1.0-2.1); BILIRUBIN,TOTAL 0.9 mg/dl (0.2-1.3); CALCIUM 8.3 mg/dL (8.4-10.2); MAGNESIUM 2.5 MG/DL (1.6-2.3); PHOSPHOROUS 8.3 mg/dl (2.5-4.5); POTASSIUM 4.9 MMOL/L (3.6-5.0); TOTAL PROTEIN 6.7 G/DL (6.3-8.2)
[2016-07-14 16:47] LABS: HEMATOCRIT 29.3 % (35.0-51.0); MEAN CORPUSCULAR HEMOGLOBIN 26.7 pg (27.0-31.0); MEAN CORPUSCULAR HGB CONC 30.7 g/dL (33.0-37.0); RED CELL DISTRIBUTION WIDTH 18.7 % (11.5-14.5); WHITE BLOOD COUNT 13.1 K/uL (4.8-10.8)
[2016-07-14 16:58] LABS: TROPONIN I 0.12 ng/mL (0.00-0.120)
--- NOTE | 2016-07-14 19:17 | CP.PCM.PN ---
Subjective - Date & Time of Evaluation Date of Evaluation: 07/14/16 Time of Evaluation: 14:00 - Subjective Subjective: SEEN IN ICU .. 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 ALSO B/C TURNED POSITIVE INTUBATED . 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 .. ON LEVOPHED DRIP Objective - Vital Signs/Intake and Output Vital Signs (last 24 hours): Temp Pulse Resp BP Pulse Ox 97.6 F 60 12 101/60 100 07/14/16 16:00 07/14/16 18:00 07/14/16 18:00 07/14/16 18:00 07/14/16 18:00 - Medications Medications: Current Medications Acetaminophen (Tylenol 325mg Tab) 650 mg PO Q6 PRN PRN Reason: Pain, moderate (4-7) Last Admin: 07/12/16 09:38 Dose: 650 mg Acetaminophen (Tylenol 325mg Tab) 650 mg PO Q6 PRN PRN Reason: Fever >100.4 F Last Admin: 07/12/16 22:24 Dose: 650 mg Albuterol/Ipratropium (Duoneb 3 Mg/0.5 Mg (3 Ml) Ud) 3 ml INH RQ4 PRN PRN Reason: Shortness of Breath Allopurinol (Zyloprim) 100 mg PO DAILY [facility] Last Admin: 07/14/16 09:01 Dose: 100 mg Atorvastatin Calcium (Lipitor) 80 mg PO DAILY [facility] Last Admin: 07/14/16 08:57 Dose: 80 mg Bismuth Subsalicylate (Pepto-Bismol) 524 mg PO Q6H PRN PRN Reason: Diarrhea Carvedilol (Coreg) 12.5 mg PO BID [facility] Last Admin: 07/14/16 17:00 Dose: Not Given Dextrose (Dextrose 50% Inj) 0 ml IVP STAT PRN; Protocol PRN Reason: Hypoglycemia Protocol Ezetimibe (Zetia) 10 mg PO HS [facility] Last Admin: 07/13/16 22:19 Dose: 10 mg Ergocalciferol (Drisdol 50,000 Intl Units Cap) 1 cap PO QWK [facility] Gabapentin (Neurontin) 300 mg PO BID [facility] Last Admin: 07/14/16 18:30 Dose: Not Given Glucagon (Glucagen Diagnostic Kit) 0 mg IM STAT PRN; Protocol PRN Reason: Hypoglycemia Protocol Heparin Sodium (Porcine) (Heparin) 5,000 units SC Q8 [facility] PRN Reason: Protocol Last Admin: 07/14/16 18:29 Dose: 5,000 units Piperacillin Sod/Tazobactam (Sod 2.25 gm/ Sodium Chloride) 100 mls @ 100 mls/ hr IVPB Q8 [facility] Last Admin: 07/14/16 18:52 Dose: 100 mls/hr Vancomycin HCl 1 gm/ Sodium (Chloride) 250 mls @ 166.667 mls/hr IVPB DAILY [facility] Last Admin: 07/14/16 09:00 Dose: 166.667 mls/hr Insulin Human Regular (Humulin R) 0 units SC ACHS [facility] PRN Reason: Protocol Last Admin: 07/14/16 16:30 Dose: Not Given Sevelamer HCl (Renagel) 800 mg PO TID [facility] Last Admin: 07/14/16 18:30 Dose: Not Given Sitagliptin Phosphate (Januvia) 25 mg PO DAILY [facility] Last Admin: 07/14/16 08:58 Dose: 25 mg Tamsulosin HCl (Flomax) 0.4 mg PO DAILY [facility] Last Admin: 07/14/16 08:56 Dose: 0.4 mg - Labs Labs: 07/14/16 14:48 07/14/16 16:15 PT 11.7 SECONDS (9.6-11.2) H 07/09/16 21:00 INR 1.13 (0.92-1.08) H 07/09/16 21:00 APTT 32.0 SECONDS (23.3-32.5) 07/10/16 05:35 Assessment and Plan - Assessment and Plan (Free Text) Assessment: S/P CARDIAC ARREST .. INTUBATED SEPTIC .. +VE BLOOD CULTURE .. ASPIRATION PNA A ON CKD .. 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 LEVOPHED IVAB PER DR TAM SKIP HD TODAY BP IS VERY LOW .. HD IN AM STEROID FOR PROBABLE ASP PNA .. AND TO SUPPORT BP CASE ALSO D/W AND SON RICARDOR WILL F/U VERY CLOSELY
[2016-07-14] MEDS: Norepinephrine 8 MG in Dextrose 5% In Water 500 ML IV ONE (19:30)
[2016-07-14] MEDS ORDERED: Norepinephrine 8 MG in Dextrose 5% In Water 500 ML IV ONE (20:06)
--- NOTE | 2016-07-14 20:32 | CP.PCM.CON ---
History of Present Illness - History of Present Illness History of Present Illness: I was asked to evaluate patient by Dr. Solorio. Patient is a80 year old male with PMH HTN, hypercholesterolemia, chronic renal insufficiency who was admitted initially for progressive renal failure. The patient required dialysis access. He was in the CT scan when he developed respiratory failure and cardiac arrest. The patient was intubated, and transferred to ICU. The pateint is currently intubated sedated and on pressors. Review of Systems - Review of Systems Systems not reviewed;Unavailable: Intubated Past Patient History - Past Medical History & Family History Past Medical History?: Yes - Past Social History Smoking Status: Never Smoked - CARDIAC Hx Hypertension: Yes - RENAL Hx Renal Failure: Yes - ENDOCRINE/METABOLIC Hx Endocrine Disorders: Yes Hx Diabetes Mellitus Type 2: Yes - HEMATOLOGICAL/ONCOLOGICAL Hx Blood Disorders: Yes - MUSCULOSKELETAL/RHEUMATOLOGICAL Hx Falls: No - GENITOURINARY/GYNECOLOGICAL Hx Prostate Problems: Yes (BPH) - PSYCHIATRIC Hx Substance Use: No - ANESTHESIA Hx Anesthesia: No Hx Anesthesia Reactions: No Meds Allergies/Adverse Reactions: Allergies Allergy/AdvReac Type Severity Reaction Status Date / Time No Known Allergies Allergy Verified 07/09/16 20:05 - Medications Medications: Current Medications Acetaminophen (Tylenol 325mg Tab) 650 mg PO Q6 PRN PRN Reason: Pain, moderate (4-7) Last Admin: 07/12/16 09:38 Dose: 650 mg Acetaminophen (Tylenol 325mg Tab) 650 mg PO Q6 PRN PRN Reason: Fever >100.4 F Last Admin: 07/12/16 22:24 Dose: 650 mg Albuterol/Ipratropium (Duoneb 3 Mg/0.5 Mg (3 Ml) Ud) 3 ml INH RQ4 PRN PRN Reason: Shortness of Breath Allopurinol (Zyloprim) 100 mg PO DAILY [facility] Last Admin: 07/14/16 09:01 Dose: 100 mg Atorvastatin Calcium (Lipitor) 80 mg PO DAILY [facility] Last Admin: 07/14/16 08:57 Dose: 80 mg Bismuth Subsalicylate (Pepto-Bismol) 524 mg PO Q6H PRN PRN Reason: Diarrhea Carvedilol (Coreg) 12.5 mg PO BID [facility] Last Admin: 07/14/16 17:00 Dose: Not Given Dextrose (Dextrose 50% Inj) 0 ml IVP STAT PRN; Protocol PRN Reason: Hypoglycemia Protocol Ezetimibe (Zetia) 10 mg PO HS [facility] Last Admin: 07/13/16 22:19 Dose: 10 mg Ergocalciferol (Drisdol 50,000 Intl Units Cap) 1 cap PO QWK [facility] Gabapentin (Neurontin) 300 mg PO BID [facility] Last Admin: 07/14/16 18:30 Dose: Not Given Glucagon (Glucagen Diagnostic Kit) 0 mg IM STAT PRN; Protocol PRN Reason: Hypoglycemia Protocol Heparin Sodium (Porcine) (Heparin) 5,000 units SC Q8 [facility] PRN Reason: Protocol Last Admin: 07/14/16 18:29 Dose: 5,000 units Piperacillin Sod/Tazobactam (Sod 2.25 gm/ Sodium Chloride) 100 mls @ 100 mls/ hr IVPB Q8 [facility] Last Admin: 07/14/16 18:52 Dose: 100 mls/hr Vancomycin HCl 1 gm/ Sodium (Chloride) 250 mls @ 166.667 mls/hr IVPB DAILY [facility] Last Admin: 07/14/16 09:00 Dose: 166.667 mls/hr Norepinephrine Bitartrate 8 mg (/ Dextrose) 508 mls @ 38.1 mls/hr IV .[id number] ONE; 10 MCG/MIN PRN Reason: Protocol Stop: 07/15/16 09:25 Insulin Human Regular (Humulin R) 0 units SC ACHS [facility] PRN Reason: Protocol Last Admin: 07/14/16 16:30 Dose: Not Given Sevelamer HCl (Renagel) 800 mg PO TID [facility] Last Admin: 07/14/16 18:30 Dose: Not Given Sitagliptin Phosphate (Januvia) 25 mg PO DAILY [facility] Last Admin: 07/14/16 08:58 Dose: 25 mg Tamsulosin HCl (Flomax) 0.4 mg PO DAILY [facility] Last Admin: 07/14/16 08:56 Dose: 0.4 mg Physical Exam - Constitutional Appears: Toxic - Head Exam Head Exam: NORMAL INSPECTION - Eye Exam Eye Exam: Normal appearance - ENT Exam ENT Exam: Mucous Membranes Moist - Neck Exam Neck exam: Positive for: Full Rom - Respiratory Exam Respiratory Exam: Decreased Breath Sounds - Cardiovascular Exam Cardiovascular Exam: REGULAR RHYTHM - GI/Abdominal Exam GI & Abdominal Exam: Normal Bowel Sounds - Rectal Exam Rectal Exam: Deferred - Extremities Exam Extremities exam: Negative for: pedal edema - Back Exam Back exam: NORMAL INSPECTION - Neurological Exam Neurological exam: Alert, Oriented x3 - Psychiatric Exam Psychiatric exam: Normal Affect - Skin Skin Exam: Normal Color Results - Vital Signs Recent Vital Signs: Last Vital Signs Temp 97.6 F 07/14/16 16:00 Pulse 60 07/14/16 18:00 Resp 12 07/14/16 18:00 BP 101/60 07/14/16 18:00 Pulse Ox 100 07/14/16 18:00 - Labs Result Diagrams: 07/15/16 04:30 07/15/16 04:30 Labs: Laboratory Results - last 24 hr 07/11/16 07/13/16 07/13/16 08:39 08:39 22:19 WBC RBC Hgb Hct MCV MCH MCHC RDW Plt Count Sodium Potassium Chloride Carbon Dioxide Anion Gap BUN Creatinine Est GFR ( Amer) Est GFR (Non-Af Amer) POC Glucose (mg/dL) 316 H Random Glucose Lactic Acid Calcium Phosphorus Magnesium Total Bilirubin AST ALT Alkaline Phosphatase Troponin I Total Protein Albumin Globulin Albumin/Globulin Ratio Stool Occult Blood Negative C. difficile Ag & Toxin Negative 07/14/16 07/14/16 07/14/16 05:30 05:30 05:30 WBC 14.8 H RBC 3.37 L Hgb 9.3 L Hct 29.1 L MCV 86.4 MCH 27.5 MCHC 31.8 L RDW 18.3 H Plt Count 246 Sodium 135 Potassium 4.8 Chloride 96 L Carbon Dioxide 24 Anion Gap 20 BUN 72 H Creatinine 6.4 H Est GFR ( Amer) 10 Est GFR (Non-Af Amer) 8 POC Glucose (mg/dL) 342 H Random Glucose 361 H Lactic Acid Calcium 7.9 L Phosphorus Magnesium Total Bilirubin 1.0 AST 26 ALT 21 Alkaline Phosphatase 322 H D Troponin I Total Protein 7.2 Albumin 2.9 L Globulin 4.3 H Albumin/Globulin Ratio 0.7 L Stool Occult Blood C. difficile Ag & Toxin 07/14/16 07/14/16 07/14/16 11:15 14:48 16:15 WBC 13.1 H RBC 3.37 L Hgb 9.0 L Hct 29.3 L MCV 87.0 MCH 26.7 L MCHC 30.7 L RDW 18.7 H Plt Count 249 Sodium 135 Potassium 4.9 Chloride 97 L Carbon Dioxide 26 Anion Gap 17 BUN 76 H Creatinine 7.1 H Est GFR ( Amer) 9 Est GFR (Non-Af Amer) 7 POC Glucose (mg/dL) 311 H Random Glucose 327 H Lactic Acid Calcium 8.3 L Phosphorus 8.3 H Magnesium 2.5 H Total Bilirubin 0.9 AST 70 H D ALT 41 Alkaline Phosphatase 309 H Troponin I 0.1200 Total Protein 6.7 Albumin 2.9 L Globulin 3.8 Albumin/Globulin Ratio 0.8 L Stool Occult Blood C. difficile Ag & Toxin 07/14/16 16:15 WBC RBC Hgb Hct MCV MCH MCHC RDW Plt Count Sodium Potassium Chloride Carbon Dioxide Anion Gap BUN Creatinine Est GFR ( Amer) Est GFR (Non-Af Amer) POC Glucose (mg/dL) Random Glucose Lactic Acid 1.5 Calcium Phosphorus Magnesium Total Bilirubin AST ALT Alkaline Phosphatase Troponin I Total Protein Albumin Globulin Albumin/Globulin Ratio Stool Occult Blood C. difficile Ag & Toxin - EKG Data EKG Interpreted by: Myself Assessment & Plan (1) Aortic stenosis Assessment and Plan: moderate by echocardiogram. will continue pressor support. Status: Acute (2) Aspiration pneumonia Assessment and Plan: on antibiotics Status: Acute (3) Cardiac arrest Assessment and Plan: continue supprotive care. I discussed clinical course with family (son is graduating medical school to start anesthesia residency). Status: Acute
[2016-07-14 20:54] LABS: ABG ALLEN TEST YES; ABG MECHANICAL RATE 16; ARTERIAL BLOOD GAS HCO3 22.6 mmol/L (21-28); ARTERIAL BLOOD GAS MODE A/C; ARTERIAL BLOOD GAS PH 7.25 (7.35-7.45); ARTERIAL BLOOD GAS PO2 182 mm/Hg (80-100); ATERIAL BLOOD GAS PEEP 5
[2016-07-15 05:12] LABS: HEMATOCRIT 31.9 % (35.0-51.0); MEAN CELL VOLUME 85.7 fl (80.0-94.0); MEAN CORPUSCULAR HGB CONC 31.5 g/dL (33.0-37.0); RED CELL DISTRIBUTION WIDTH 18.2 % (11.5-14.5); WHITE BLOOD COUNT 19.4 K/uL (4.8-10.8)
[2016-07-15 05:18] LABS: POTASSIUM 5.1 MMOL/L (3.6-5.0)
[2016-07-15 05:27] LABS: ABG ALLEN TEST YES; ABG MECHANICAL RATE 18; ARTERIAL BLOOD GAS MODE A/C; ARTERIAL BLOOD GAS O2 CAPACITY 14.8 mL/dL (16-24); ARTERIAL BLOOD GAS O2 CONTENT 14.7 ML/dL (15-23); ARTERIAL BLOOD GAS PH 7.28 (7.35-7.45); ARTERIAL BLOOD GAS PO2 174 mm/Hg (80-100); ATERIAL BLOOD GAS PEEP 5; HHB 0.6 % (0.0-5.0); METHEMOGLOBIN 1.4 % (0.0-3.0)
[2016-07-15] MEDS: Norepinephrine 8 MG in Dextrose 5% In Water 500 ML IV ONE (05:31)
[2016-07-15] MEDS: Insulin Regular 100 units/ml SC SCH ×5 (06:17→22:54)
--- NOTE | 2016-07-15 08:04 | PN ---
DATE: 07/15/2016 The patient seen and examined. Interim events noted. Consults noted, appreciated. Cardiology, neph rology, pulmonary and regulatory affairs spec interventions noted and appreciated. The patient had cardiac arres t yesterday and was resuscitated, but had significant anoxic encephalopathy and patient was orally in tubated and was transferred to intensive care unit. Currently, patient remains in intensive care uni t on ventilator. Not able to provide informative history or review of systems. PHYSICAL EXAMINATION: GENERAL: The patient is orally intubated via endotracheal tube in intensive care unit, minimal respo nse to tactile and painful stimulus, noncommunicating. VITAL SIGNS: Stable. Temperature afebrile, pulse 70, respiration 18, blood pressure 110/70. HEART: S1, S2 normal, regular. LUNGS: Good bilateral air exchange. ABDOMEN: Soft, nontender. EXTREMITIES: The patient with venous edema and cellulitis. CENTRAL NERVOUS SYSTEM: The patient has marked anoxic encephalopathy. DIAGNOSTIC DATA: Available reviewed. Telemetry monitoring does not show significant arrhythmias. Overall, patient has marked anoxic encephalopathy and prognosis as far as functional outcome remains very poor. Family is aware of same. PLAN: As ordered. Tang Solorio MD cc: [id number] TT: 07/15/2016 08:03:52 Confirmation # [id number] Dictation # [id number]
--- NOTE | 2016-07-15 08:41 | CP.PCM.PN ---
Subjective - Date & Time of Evaluation Date of Evaluation: 07/15/16 Time of Evaluation: 08:15 - Subjective Subjective: 80-year-old man who was seen in the ICU after suffering from cardiac arrest at the CT scanner yesterday evening (07/14/16). He coded for about 10 minutes, and pulses were regained. Patient's family is at bedside and the patient is not responsive to verbal or painful stimulus. Pt is on intubated and on a ventilator. Dressings are clean, dry, and intact. Objective - Vital Signs/Intake and Output Vital Signs (last 24 hours): Temp Pulse Resp BP Pulse Ox 98.7 F 70 18 115/64 100 07/15/16 08:00 07/15/16 08:23 07/15/16 08:00 07/15/16 08:23 07/15/16 08:00 Intake and Output: 07/15/16 07/15/16 06:59 18:59 Intake Total 900 Balance 900 - Medications Medications: Current Medications Acetaminophen (Tylenol 325mg Tab) 650 mg PO Q6 PRN PRN Reason: Pain, moderate (4-7) Last Admin: 07/12/16 09:38 Dose: 650 mg Acetaminophen (Tylenol 325mg Tab) 650 mg PO Q6 PRN PRN Reason: Fever >100.4 F Last Admin: 07/12/16 22:24 Dose: 650 mg Albuterol/Ipratropium (Duoneb 3 Mg/0.5 Mg (3 Ml) Ud) 3 ml INH RQ4 PRN PRN Reason: Shortness of Breath Allopurinol (Zyloprim) 100 mg PO DAILY [facility] Last Admin: 07/15/16 08:27 Dose: 100 mg Atorvastatin Calcium (Lipitor) 80 mg PO DAILY [facility] Last Admin: 07/15/16 08:26 Dose: 80 mg Bismuth Subsalicylate (Pepto-Bismol) 524 mg PO Q6H PRN PRN Reason: Diarrhea Carvedilol (Coreg) 12.5 mg PO BID [facility] Last Admin: 07/15/16 08:23 Dose: Not Given Dextrose (Dextrose 50% Inj) 0 ml IVP STAT PRN; Protocol PRN Reason: Hypoglycemia Protocol Ezetimibe (Zetia) 10 mg PO HS [facility] Last Admin: 07/14/16 22:00 Dose: Not Given Ergocalciferol (Drisdol 50,000 Intl Units Cap) 1 cap PO QWK [facility] Gabapentin (Neurontin) 300 mg PO BID [facility] Last Admin: 07/15/16 08:26 Dose: 300 mg Glucagon (Glucagen Diagnostic Kit) 0 mg IM STAT PRN; Protocol PRN Reason: Hypoglycemia Protocol Heparin Sodium (Porcine) (Heparin) 5,000 units SC Q8 [facility] PRN Reason: Protocol Last Admin: 07/15/16 08:25 Dose: 5,000 units Piperacillin Sod/Tazobactam (Sod 2.25 gm/ Sodium Chloride) 100 mls @ 100 mls/ hr IVPB Q8 [facility] Last Admin: 07/15/16 08:27 Dose: 100 mls/hr Vancomycin HCl 1 gm/ Sodium (Chloride) 250 mls @ 166.667 mls/hr IVPB DAILY [facility] Last Admin: 07/15/16 08:26 Dose: 166.667 mls/hr Norepinephrine Bitartrate 8 mg (/ Dextrose) 508 mls @ 38.1 mls/hr IV .[id number] ONE; 10 MCG/MIN PRN Reason: Protocol Stop: 07/15/16 09:25 Last Admin: 07/15/16 05:31 Dose: 15 mcg/min, 57.15 mls/hr Insulin Human Regular (Humulin R) 0 units SC ACHS [facility] PRN Reason: Protocol Last Admin: 07/15/16 06:36 Dose: 5 units Sevelamer HCl (Renagel) 800 mg PO TID [facility] Last Admin: 07/15/16 08:26 Dose: 800 mg Sitagliptin Phosphate (Januvia) 25 mg PO DAILY [facility] Last Admin: 07/15/16 08:25 Dose: 25 mg Tamsulosin HCl (Flomax) 0.4 mg PO DAILY [facility] Last Admin: 07/15/16 08:25 Dose: 0.4 mg - Labs Labs: 07/15/16 04:30 07/15/16 04:30 PT 11.7 SECONDS (9.6-11.2) H 07/09/16 21:00 INR 1.13 (0.92-1.08) H 07/09/16 21:00 APTT 32.0 SECONDS (23.3-32.5) 07/10/16 05:35 - Constitutional Appears: Toxic, In Acute Distress - Extremities Exam Additional comments: Lower extremity focused exam: VASC: DP and PT pulses palpable bilaterally, graded 1/4 and 1/4 respectively. + 1 pitting edema noted to lower extremities b/l, Return of relaxed skin tension lines noted. DERM: Diffuse bilateral lower leg blanchable erythema extending from proximal 1/ 3 of leg terminating superior to the ankle joints with accompanying dyshydrotic epidermal patches. Left leg exhibits turgid un-ruptured serous filled vesicles. Right leg noted to have 3 unroof bulla with weeping serous exudate along anterior-lateral margin of proximal 1/3 of leg. NEURO: Un-respoinsive to painful stimuli. ORTHO: No gross deformities noted. Unable to obtain as patient is unresponsive. - Neurological Exam Neurological Exam: Altered (Unresponsive ), Awake Assessment and Plan - Assessment and Plan (Free Text) Assessment: 80 year old male with bilateral leg venous stasis dermatitis, secondary to venous insufficiency Plan: Patient evaluated. and treated. Discussed with attending, Dr. Arora Chart, labs, and vitals reviewed. Afebrile, WBC=19.4 (07/14/16). Blister site dressings consisting of xeroform, abd, DSD, and YADIRA bilaterally were left intact. . Continue IV abx per ID. Podiatry will continue to follow this patient while in house
--- NOTE | 2016-07-15 11:13 | RAD ---
HISTORY: Pt's intubated to check placement COMPARISON: 07/14/2016 FINDINGS: LUNGS: No infiltrate. PLEURA: Small right pleural effusion. No definite left pleural effusion identified. No pneumothorax. CARDIOVASCULAR: Normal heart size. Endotracheal tube unchanged in position. Nasogastric tube present descending beneath the diaphragm. Right multi lumen central venous catheter, unchanged. OSSEOUS STRUCTURES: No significant abnormalities. VISUALIZED UPPER ABDOMEN: Normal. OTHER FINDINGS: None. IMPRESSION: ET tube unchanged. New nasogastric tube. Small right pleural effusion. No definite infiltrate.
[2016-07-15] MEDS ORDERED: Propofol 10 mg/ml Inj (20 ML) ONE (11:30)
[2016-07-15] MEDS ORDERED: Succinylcholine 200 mg/10 ml Inj IV ONE (11:30)
--- NOTE | 2016-07-15 12:30 | CP.PCM.PN ---
Subjective - Date & Time of Evaluation Date of Evaluation: 07/15/16 Time of Evaluation: 07:00 - Subjective Subjective: 80 year old male with PMH HTN, hypercholesterolemia, chronic renal insufficiency who was admitted initially for progressive renal failure. The patient required dialysis access. He was in the CT scan when he developed respiratory failure and cardiac arrest. The patient was intubated, and transferred to ICU. The pateint is currently intubated sedated and on pressors. IV rx for sepsis / ? endocarditis in progress Objective - Vital Signs/Intake and Output Vital Signs (last 24 hours): Temp Pulse Resp BP Pulse Ox 98.3 F 116 H 22 107/71 100 07/15/16 12:00 07/15/16 12:00 07/15/16 12:00 07/15/16 12:00 07/15/16 12:00 Intake and Output: 07/15/16 07/15/16 06:59 18:59 Intake Total 900 692 Output Total 300 Balance 900 392 - Medications Medications: Current Medications Acetaminophen (Tylenol 325mg Tab) 650 mg PO Q6 PRN PRN Reason: Pain, moderate (4-7) Last Admin: 07/12/16 09:38 Dose: 650 mg Acetaminophen (Tylenol 325mg Tab) 650 mg PO Q6 PRN PRN Reason: Fever >100.4 F Last Admin: 07/12/16 22:24 Dose: 650 mg Albuterol/Ipratropium (Duoneb 3 Mg/0.5 Mg (3 Ml) Ud) 3 ml INH RQ4 PRN PRN Reason: Shortness of Breath Allopurinol (Zyloprim) 100 mg PO DAILY [facility] Last Admin: 07/15/16 08:27 Dose: 100 mg Atorvastatin Calcium (Lipitor) 80 mg PO DAILY [facility] Last Admin: 07/15/16 08:26 Dose: 80 mg Bismuth Subsalicylate (Pepto-Bismol) 524 mg PO Q6H PRN PRN Reason: Diarrhea Carvedilol (Coreg) 12.5 mg PO BID [facility] Last Admin: 07/15/16 10:54 Dose: 12.5 mg Dextrose (Dextrose 50% Inj) 0 ml IVP STAT PRN; Protocol PRN Reason: Hypoglycemia Protocol Ezetimibe (Zetia) 10 mg PO HS [facility] Last Admin: 07/14/16 22:00 Dose: Not Given Ergocalciferol (Drisdol 50,000 Intl Units Cap) 1 cap PO QWK [facility] Gabapentin (Neurontin) 300 mg PO BID [facility] Last Admin: 07/15/16 08:26 Dose: 300 mg Glucagon (Glucagen Diagnostic Kit) 0 mg IM STAT PRN; Protocol PRN Reason: Hypoglycemia Protocol Heparin Sodium (Porcine) (Heparin) 5,000 units SC Q8 [facility] PRN Reason: Protocol Last Admin: 07/15/16 08:25 Dose: 5,000 units Piperacillin Sod/Tazobactam (Sod 2.25 gm/ Sodium Chloride) 100 mls @ 100 mls/ hr IVPB Q8 [facility] Last Admin: 07/15/16 08:27 Dose: 100 mls/hr Vancomycin HCl 1 gm/ Sodium (Chloride) 250 mls @ 166.667 mls/hr IVPB DAILY [facility] Last Admin: 07/15/16 08:26 Dose: 166.667 mls/hr Insulin Human Regular (Humulin R) 0 units SC ACHS [facility] PRN Reason: Protocol Last Admin: 07/15/16 11:14 Dose: 5 units Sevelamer HCl (Renagel) 800 mg PO TID [facility] Last Admin: 07/15/16 12:19 Dose: 800 mg Sitagliptin Phosphate (Januvia) 25 mg PO DAILY [facility] Last Admin: 07/15/16 08:25 Dose: 25 mg Tamsulosin HCl (Flomax) 0.4 mg PO DAILY [facility] Last Admin: 07/15/16 08:25 Dose: 0.4 mg - Labs Labs: 07/15/16 04:30 07/15/16 04:30 PT 11.7 SECONDS (9.6-11.2) H 07/09/16 21:00 INR 1.13 (0.92-1.08) H 07/09/16 21:00 APTT 32.0 SECONDS (23.3-32.5) 07/10/16 05:35 Assessment and Plan (1) Acute kidney failure Status: Acute (2) Cellulitis of right lower extremity Status: Acute (3) Bacteremia Status: Acute (4) Bacteremia Status: Acute
--- NOTE | 2016-07-15 14:35 | CP.CCUPN ---
<LyudmilarubyjulioDelmymiladis - Last Filed: 07/15/16 15:51> CCU Subjective - Physician Review Subjective (Free Text): 07/15/16 13:15 Patient seen and examined at bedside during rounds. Patient was transferred to ICU yesterday after cardiac/respiratory arrest while obtaining CT head. He has since been on mechanical ventilation. Today patient is unresponsive to verbal or painful stimuli. Pupils are non-reactive however patient blinks eyes with saline drops. Not moving extremities spontaneously. Patient started dialysis today, which was discontinued after 90 minutes due to development of afib with RVR. He received IV cardizem for rate control and remains on levophed for pressure support. Patient has been afebrile overnight. CCU Objective - Vital Signs / Intake & Output Vital Signs (Last 4 hours): Vital Signs Temp Pulse Resp BP Pulse Ox 07/15/16 14:00 63 18 92/57 L 100 07/15/16 13:00 116 H 20 126/72 100 07/15/16 12:00 98.3 F 116 H 22 107/71 100 07/15/16 11:00 116 H 18 124/75 100 07/15/16 10:54 123 H 134/70 Intake and Output (Last 8hrs): Intake & Output 07/14/16 07/15/16 07/15/16 22:59 06:59 14:59 Intake Total 172 728 806 Output Total 300 Balance 172 728 506 Intake: IV 172 728 456 Intake, Piggyback 350 Output: Ultrafiltrate 300 - Physical Exam Head: Positive for: Atraumatic, Normocephalic Pupils: Positive for: Non-Reactive Extroacular Muscles: Negative for: EOMI Ears: Negative for: Normal Mouth: Positive for: Dry Neck: Positive for: Trachea Midline, Other (Right IJ HD catheter site clean, dry , with no signs of erythema.). Negative for: JVD, Lymphadenopathy, Bruit Respiratory/Chest: Positive for: Rhonchi, Tachypneic, Other (Patient on mechanical ventilation. B/L air entry present with occasional expiratory rhonchii. ). Negative for: Wheezes Cardiovascular: Positive for: Irregular Rhythm, Tachycardic. Negative for: Murmurs Abdomen: Positive for: Normal Bowel Sounds. Negative for: Tenderness, Distention Genitourinary Male: Positive for: Other (Right groin TLC site clean, dry, with no surrounding erythema. ) Upper Extremity: Positive for: Edema (left upper extremity edema) Lower Extremity: Positive for: Other (Lower extremity xeroform/YADIRA bandaging in place to upper calf. No pitting edema noted above level of dressings.) - Medications Active Medications: Active Medications Generic Name Dose Route Start Last Admin Trade Name Freq PRN Reason Stop Dose Admin Acetaminophen 650 mg 07/10/16 02:12 07/12/16 09:38 Tylenol 325mg Tab PO 650 mg Q6 PRN Administration Pain, moderate (4-7) Acetaminophen 650 mg 07/12/16 22:03 07/12/16 22:24 Tylenol 325mg Tab PO 650 mg Q6 PRN Administration Fever >100.4 F Albuterol/Ipratropium 3 ml 07/14/16 11:48 Duoneb 3 Mg/0.5 Mg (3 Ml) Ud INH RQ4 PRN Shortness of Breath Allopurinol 100 mg 07/10/16 09:00 07/15/16 08:27 Zyloprim PO 100 mg DAILY MARIA GUADALUPE Administration Atorvastatin Calcium 80 mg 07/10/16 09:00 07/15/16 08:26 Lipitor PO 80 mg DAILY MARIA GUADALUPE Administration Bismuth Subsalicylate 524 mg 07/11/16 17:33 Pepto-Bismol PO Q6H PRN Diarrhea Carvedilol 12.5 mg 07/10/16 09:00 07/15/16 10:54 Coreg PO 12.5 mg BID MARIA GUADALUPE Administration Dextrose 0 ml 07/10/16 15:13 Dextrose 50% Inj IVP STAT PRN Hypoglycemia Protocol Protocol Ezetimibe 10 mg 07/10/16 22:00 07/14/16 22:00 Zetia PO Not Given HS MARIA GUADALUPE Ergocalciferol 1 cap 07/10/16 02:30 Drisdol 50,000 Intl Units Cap PO QWK MARIA GUADALUPE Gabapentin 300 mg 07/10/16 09:00 07/15/16 08:26 Neurontin PO 300 mg BID MARIA GUADALUPE Administration Glucagon 0 mg 07/10/16 15:13 Glucagen Diagnostic Kit IM STAT PRN Hypoglycemia Protocol Protocol Heparin Sodium (Porcine) 5,000 units 07/10/16 02:15 07/15/16 08:25 Heparin SC 5,000 units Q8 MARIA GUADALUPE Administration Protocol Piperacillin Sod/Tazobactam 100 mls @ 100 mls/hr 07/11/16 01:00 07/15/16 08: 27 Sod 2.25 gm/ Sodium Chloride IVPB 100 mls/hr Q8 MARIA GUADALUPE Administration Vancomycin HCl 1 gm/ Sodium 250 mls @ 166.667 mls/hr 07/13/16 17:00 07/15/16 08:26 Chloride IVPB 166.667 mls/hr DAILY MARIA GUADALUPE Administration Insulin Human Regular 0 units 07/10/16 07:30 07/15/16 11:14 Humulin R SC 5 units ACHS MARIA GUADALUPE Administration Protocol Sevelamer HCl 800 mg 07/10/16 09:00 07/15/16 12:19 Renagel PO 800 mg TID MARIA GUADALUPE Administration Sitagliptin Phosphate 25 mg 07/10/16 09:00 07/15/16 08:25 Januvia PO 25 mg DAILY MARIA GUADALUPE Administration Tamsulosin HCl 0.4 mg 07/10/16 09:00 07/15/16 08:25 Flomax PO 0.4 mg DAILY MARIA GUADALUPE Administration - Patient Studies Lab Studies: Microbiology Studies 07/14/16 10:00 Blood Culture - Preliminary Blood NO GROWTH AFTER 24 HOURS Lab Studies 07/15/16 07/15/16 07/15/16 Range/Units 13:05 09:18 05:20 WBC (4.8-10.8) K/uL RBC (4.40-5.90) Mil/uL Hgb (12.0-18.0) g/dL Hct (35.0-51.0) % MCV (80.0-94.0) fl MCH (27.0-31.0) pg MCHC (33.0-37.0) g/dL RDW (11.5-14.5) % Plt Count (130-400) K/uL pCO2 46 H (35-45) mm/Hg pO2 174 H (80-100) mm/Hg HCO3 21.0 (21-28) mmol/L ABG pH 7.28 L (7.35-7.45) ABG Total CO2 23.0 (22-28) mmol/L ABG O2 Saturation 99.4 H (95-98) % ABG O2 Content 14.7 L (15-23) ML/dL ABG Base Excess -5.1 L (-2.0-3.0) mmol/L ABG Hemoglobin 10.5 L (11.7-17.4) g/dL ABG Carboxyhemoglobin 1.0 (0.5-1.5) % POC ABG HHb (Measured) 0.6 (0.0-5.0) % ABG Methemoglobin 1.4 (0.0-3.0) % ABG O2 Capacity 14.8 L (16-24) mL/dL Mason Test Yes ABG Potassium (3.6-5.2) mmol/L A-a O2 Difference 268.0 mm/Hg Hgb O2 Saturation 97.0 (95.0-98.0) % Glucose (75-110) mg/dL Lactate (0.7-2.1) mmol/L Vent Mode A/c Mechanical Rate 18 FiO2 70.0 % Tidal Volume 500 PEEP 5 Sodium (132-148) mmol/l Potassium (3.6-5.0) MMOL/L Chloride (98-107) mmol/L Carbon Dioxide (22-30) mmol/L Anion Gap (10-20) BUN (9-20) mg/dl Creatinine (0.8-1.5) mg/dL Est GFR ( Amer) Est GFR (Non-Af Amer) POC Glucose (mg/dL) 355 H (65-110) mg/dL Random Glucose (75-110) mg/dL Lactic Acid (0.7-2.1) MMOL/L Calcium (8.4-10.2) mg/dL Phosphorus (2.5-4.5) mg/dl Magnesium (1.6-2.3) MG/DL Total Bilirubin (0.2-1.3) mg/dl AST (17-59) U/L ALT (21-72) U/L Alkaline Phosphatase (38-126) U/L Troponin I (0.00-0.120) ng/mL Total Protein (6.3-8.2) G/DL Albumin (3.5-5.0) g/dL Globulin (2.2-3.9) gm/dL Albumin/Globulin Ratio (1.0-2.1) Arterial Blood Potassium (3.6-5.2) mmol/L Stool Occult Blood (NEGATIVE) Random Vancomycin 29.0 ug/mL 07/15/16 07/15/16 07/15/16 Range/Units 04:50 04:30 04:30 WBC 19.4 H (4.8-10.8) K/uL RBC 3.72 L (4.40-5.90) Mil/uL Hgb 10.1 L (12.0-18.0) g/dL Hct 31.9 L (35.0-51.0) % MCV 85.7 (80.0-94.0) fl MCH 27.0 (27.0-31.0) pg MCHC 31.5 L (33.0-37.0) g/dL RDW 18.2 H (11.5-14.5) % Plt Count 290 (130-400) K/uL pCO2 (35-45) mm/Hg pO2 (80-100) mm/Hg HCO3 (21-28) mmol/L ABG pH (7.35-7.45) ABG Total CO2 (22-28) mmol/L ABG O2 Saturation (95-98) % ABG O2 Content (15-23) ML/dL ABG Base Excess (-2.0-3.0) mmol/L ABG Hemoglobin (11.7-17.4) g/dL ABG Carboxyhemoglobin (0.5-1.5) % POC ABG HHb (Measured) (0.0-5.0) % ABG Methemoglobin (0.0-3.0) % ABG O2 Capacity (16-24) mL/dL Mason Test ABG Potassium (3.6-5.2) mmol/L A-a O2 Difference mm/Hg Hgb O2 Saturation (95.0-98.0) % Glucose (75-110) mg/dL Lactate (0.7-2.1) mmol/L Vent Mode Mechanical Rate FiO2 % Tidal Volume PEEP Sodium 135 (132-148) mmol/l Potassium 5.1 H (3.6-5.0) MMOL/L Chloride 97 L (98-107) mmol/L Carbon Dioxide 22 (22-30) mmol/L Anion Gap 21 H (10-20) BUN 85 H (9-20) mg/dl Creatinine 7.1 H (0.8-1.5) mg/dL Est GFR ( Amer) 9 Est GFR (Non-Af Amer) 7 POC Glucose (mg/dL) 384 H (65-110) mg/dL Random Glucose 400 H* D (75-110) mg/dL Lactic Acid (0.7-2.1) MMOL/L Calcium 8.0 L (8.4-10.2) mg/dL Phosphorus (2.5-4.5) mg/dl Magnesium (1.6-2.3) MG/DL Total Bilirubin (0.2-1.3) mg/dl AST (17-59) U/L ALT (21-72) U/L Alkaline Phosphatase (38-126) U/L Troponin I (0.00-0.120) ng/mL Total Protein (6.3-8.2) G/DL Albumin (3.5-5.0) g/dL Globulin (2.2-3.9) gm/dL Albumin/Globulin Ratio (1.0-2.1) Arterial Blood Potassium (3.6-5.2) mmol/L Stool Occult Blood (NEGATIVE) Random Vancomycin ug/mL 07/14/16 07/14/16 07/14/16 Range/Units 20:54 20:48 16:15 WBC (4.8-10.8) K/uL RBC (4.40-5.90) Mil/uL Hgb (12.0-18.0) g/dL Hct (35.0-51.0) % MCV (80.0-94.0) fl MCH (27.0-31.0) pg MCHC (33.0-37.0) g/dL RDW (11.5-14.5) % Plt Count (130-400) K/uL pCO2 57 H (35-45) mm/Hg pO2 182 H (80-100) mm/Hg HCO3 22.6 (21-28) mmol/L ABG pH 7.25 L (7.35-7.45) ABG Total CO2 26.7 (22-28) mmol/L ABG O2 Saturation 99.4 H (95-98) % ABG O2 Content (15-23) ML/dL ABG Base Excess -3.1 L (-2.0-3.0) mmol/L ABG Hemoglobin (11.7-17.4) g/dL ABG Carboxyhemoglobin (0.5-1.5) % POC ABG HHb (Measured) (0.0-5.0) % ABG Methemoglobin (0.0-3.0) % ABG O2 Capacity (16-24) mL/dL Mason Test Yes ABG Potassium 5.0 (3.6-5.2) mmol/L A-a O2 Difference 388.0 mm/Hg Hgb O2 Saturation (95.0-98.0) % Glucose 333 H (75-110) mg/dL Lactate 1.1 (0.7-2.1) mmol/L Vent Mode A/c Mechanical Rate 16 FiO2 90.0 % Tidal Volume 500 PEEP 5 Sodium 132.0 (132-148) mmol/l Potassium (3.6-5.0) MMOL/L Chloride 101.0 (98-107) mmol/L Carbon Dioxide (22-30) mmol/L Anion Gap (10-20) BUN (9-20) mg/dl Creatinine (0.8-1.5) mg/dL Est GFR ( Amer) Est GFR (Non-Af Amer) POC Glucose (mg/dL) 336 H (65-110) mg/dL Random Glucose (75-110) mg/dL Lactic Acid 1.5 (0.7-2.1) MMOL/L Calcium (8.4-10.2) mg/dL Phosphorus (2.5-4.5) mg/dl Magnesium (1.6-2.3) MG/DL Total Bilirubin (0.2-1.3) mg/dl AST (17-59) U/L ALT (21-72) U/L Alkaline Phosphatase (38-126) U/L Troponin I (0.00-0.120) ng/mL Total Protein (6.3-8.2) G/DL Albumin (3.5-5.0) g/dL Globulin (2.2-3.9) gm/dL Albumin/Globulin Ratio (1.0-2.1) Arterial Blood Potassium 5.0 (3.6-5.2) mmol/L Stool Occult Blood (NEGATIVE) Random Vancomycin ug/mL 07/14/16 07/14/16 07/13/16 Range/Units 16:15 14:48 08:39 WBC 13.1 H (4.8-10.8) K/uL RBC 3.37 L (4.40-5.90) Mil/uL Hgb 9.0 L (12.0-18.0) g/dL Hct 29.3 L (35.0-51.0) % MCV 87.0 (80.0-94.0) fl MCH 26.7 L (27.0-31.0) pg MCHC 30.7 L (33.0-37.0) g/dL RDW 18.7 H (11.5-14.5) % Plt Count 249 (130-400) K/uL pCO2 (35-45) mm/Hg pO2 (80-100) mm/Hg HCO3 (21-28) mmol/L ABG pH (7.35-7.45) ABG Total CO2 (22-28) mmol/L ABG O2 Saturation (95-98) % ABG O2 Content (15-23) ML/dL ABG Base Excess (-2.0-3.0) mmol/L ABG Hemoglobin (11.7-17.4) g/dL ABG Carboxyhemoglobin (0.5-1.5) % POC ABG HHb (Measured) (0.0-5.0) % ABG Methemoglobin (0.0-3.0) % ABG O2 Capacity (16-24) mL/dL Mason Test ABG Potassium (3.6-5.2) mmol/L A-a O2 Difference mm/Hg Hgb O2 Saturation (95.0-98.0) % Glucose (75-110) mg/dL Lactate (0.7-2.1) mmol/L Vent Mode Mechanical Rate FiO2 % Tidal Volume PEEP Sodium 135 (132-148) mmol/l Potassium 4.9 (3.6-5.0) MMOL/L Chloride 97 L (98-107) mmol/L Carbon Dioxide 26 (22-30) mmol/L Anion Gap 17 (10-20) BUN 76 H (9-20) mg/dl Creatinine 7.1 H (0.8-1.5) mg/dL Est GFR ( Amer) 9 Est GFR (Non-Af Amer) 7 POC Glucose (mg/dL) (65-110) mg/dL Random Glucose 327 H (75-110) mg/dL Lactic Acid (0.7-2.1) MMOL/L Calcium 8.3 L (8.4-10.2) mg/dL Phosphorus 8.3 H (2.5-4.5) mg/dl Magnesium 2.5 H (1.6-2.3) MG/DL Total Bilirubin 0.9 (0.2-1.3) mg/dl AST 70 H D (17-59) U/L ALT 41 (21-72) U/L Alkaline Phosphatase 309 H (38-126) U/L Troponin I 0.1200 (0.00-0.120) ng/mL Total Protein 6.7 (6.3-8.2) G/DL Albumin 2.9 L (3.5-5.0) g/dL Globulin 3.8 (2.2-3.9) gm/dL Albumin/Globulin Ratio 0.8 L (1.0-2.1) Arterial Blood Potassium (3.6-5.2) mmol/L Stool Occult Blood Negative (NEGATIVE) Random Vancomycin ug/mL Laboratory Results - last 24 hr 07/13/16 07/14/16 07/14/16 08:39 14:48 16:15 WBC 13.1 H RBC 3.37 L Hgb 9.0 L Hct 29.3 L MCV 87.0 MCH 26.7 L MCHC 30.7 L RDW 18.7 H Plt Count 249 pCO2 pO2 HCO3 ABG pH ABG Total CO2 ABG O2 Saturation ABG O2 Content ABG Base Excess ABG Hemoglobin ABG Carboxyhemoglobin POC ABG HHb (Measured) ABG Methemoglobin ABG O2 Capacity Mason Test ABG Potassium A-a O2 Difference Hgb O2 Saturation Glucose Lactate Vent Mode Mechanical Rate FiO2 Tidal Volume PEEP Sodium 135 Potassium 4.9 Chloride 97 L Carbon Dioxide 26 Anion Gap 17 BUN 76 H Creatinine 7.1 H Est GFR ( Amer) 9 Est GFR (Non-Af Amer) 7 POC Glucose (mg/dL) Random Glucose 327 H Lactic Acid Calcium 8.3 L Phosphorus 8.3 H Magnesium 2.5 H Total Bilirubin 0.9 AST 70 H D ALT 41 Alkaline Phosphatase 309 H Troponin I 0.1200 Total Protein 6.7 Albumin 2.9 L Globulin 3.8 Albumin/Globulin Ratio 0.8 L Arterial Blood Potassium Stool Occult Blood Negative Random Vancomycin 07/14/16 07/14/16 07/14/16 16:15 20:48 20:54 WBC RBC Hgb Hct MCV MCH MCHC RDW Plt Count pCO2 57 H pO2 182 H HCO3 22.6 ABG pH 7.25 L ABG Total CO2 26.7 ABG O2 Saturation 99.4 H ABG O2 Content ABG Base Excess -3.1 L ABG Hemoglobin ABG Carboxyhemoglobin POC ABG HHb (Measured) ABG Methemoglobin ABG O2 Capacity Mason Test Yes ABG Potassium 5.0 A-a O2 Difference 388.0 Hgb O2 Saturation Glucose 333 H Lactate 1.1 Vent Mode A/c Mechanical Rate 16 FiO2 90.0 Tidal Volume 500 PEEP 5 Sodium 132.0 Potassium Chloride 101.0 Carbon Dioxide Anion Gap BUN Creatinine Est GFR ( Amer) Est GFR (Non-Af Amer) POC Glucose (mg/dL) 336 H Random Glucose Lactic Acid 1.5 Calcium Phosphorus Magnesium Total Bilirubin AST ALT Alkaline Phosphatase Troponin I Total Protein Albumin Globulin Albumin/Globulin Ratio Arterial Blood Potassium 5.0 Stool Occult Blood Random Vancomycin 07/15/16 07/15/16 07/15/16 04:30 04:30 04:50 WBC 19.4 H RBC 3.72 L Hgb 10.1 L Hct 31.9 L MCV 85.7 MCH 27.0 MCHC 31.5 L RDW 18.2 H Plt Count 290 pCO2 pO2 HCO3 ABG pH ABG Total CO2 ABG O2 Saturation ABG O2 Content ABG Base Excess ABG Hemoglobin ABG Carboxyhemoglobin POC ABG HHb (Measured) ABG Methemoglobin ABG O2 Capacity Mason Test ABG Potassium A-a O2 Difference Hgb O2 Saturation Glucose Lactate Vent Mode Mechanical Rate FiO2 Tidal Volume PEEP Sodium 135 Potassium 5.1 H Chloride 97 L Carbon Dioxide 22 Anion Gap 21 H BUN 85 H Creatinine 7.1 H Est GFR ( Amer) 9 Est GFR (Non-Af Amer) 7 POC Glucose (mg/dL) 384 H Random Glucose 400 H* D Lactic Acid Calcium 8.0 L Phosphorus Magnesium Total Bilirubin AST ALT Alkaline Phosphatase Troponin I Total Protein Albumin Globulin Albumin/Globulin Ratio Arterial Blood Potassium Stool Occult Blood Random Vancomycin 07/15/16 07/15/16 07/15/16 05:20 09:18 13:05 WBC RBC Hgb Hct MCV MCH MCHC RDW Plt Count pCO2 46 H pO2 174 H HCO3 21.0 ABG pH 7.28 L ABG Total CO2 23.0 ABG O2 Saturation 99.4 H ABG O2 Content 14.7 L ABG Base Excess -5.1 L ABG Hemoglobin 10.5 L ABG Carboxyhemoglobin 1.0 POC ABG HHb (Measured) 0.6 ABG Methemoglobin 1.4 ABG O2 Capacity 14.8 L Mason Test Yes ABG Potassium A-a O2 Difference 268.0 Hgb O2 Saturation 97.0 Glucose Lactate Vent Mode A/c Mechanical Rate 18 FiO2 70.0 Tidal Volume 500 PEEP 5 Sodium Potassium Chloride Carbon Dioxide Anion Gap BUN Creatinine Est GFR ( Amer) Est GFR (Non-Af Amer) POC Glucose (mg/dL) 355 H Random Glucose Lactic Acid Calcium Phosphorus Magnesium Total Bilirubin AST ALT Alkaline Phosphatase Troponin I Total Protein Albumin Globulin Albumin/Globulin Ratio Arterial Blood Potassium Stool Occult Blood Random Vancomycin 29.0 EKG/Cardiology Studies: Cardiology / EKG Studies 07/15/16 EKG [ELECTROCARDIOGRAM] Stat Comment: Mode Of Transportation: Reason For Exam: Tachycardia Isolation: Contact Fingerstick Blood Sugar Results: 355 Review of Systems - Review of Systems Systems not reviewed;Unavailable: Intubated Critical Care Progress Note - Nutrition Nutrition: Nutrition Category Date Time Status NPO Diet [DIET] Diets 07/15/16 Breakfast Active Assessment/Plan - Assessment and Plan (Free Text) Assessment: 80 y/o with PMH including HTN, DM2, Hyperlipidemia, Morbid obesity, CKD Stage IV presented to [facility] for 2 weeks of progressive abdominal pain, lower extremity erythema and generalized malaise. He was subsequently admitted for lower extremity cellulitis, possible cholecystitis and acute on chronic CKD associated with multiple electrolyte abnormalities. During admission, patient had signs of lethargy and was sent for CT Head and Chest, during which an [employer] was called. [employer] converted to code blue for cardiac/respiratory arrest. Patient was coded for 10 minutes and was intubated, with return of spontaneous circulation. Patient was then transferred to ICU. Current ICU day 2. Plan: Acute Respiratory Failure -Etiology possibly secondary to aspiration pneumonia? -Patient intubated on 07/14/16 due to cardiac/respiratory arrest -Currently on mechanical ventilation, day 2. Settings: 18/500/5/60% -O2 sat has been stable at 100% -Will follow ABG and wean as tolerated Sepsis, with Strep Anginosus Bacteremia -Etiology secondary to GI vs Skin vs Aspiration pneumonia -Patient remains afebrile. WBC: 19.4 -Blood culture from 07/09 detected strep anginosus sensitive to Vancomycin -Repeat blood cultures from 07/09 and 07/14 reveal no growth to date -Lactic acid: 1.5 -Currently on levophed drip. Will continue pressors and decrease as tolerated -Acute cholecystitis ruled out by general surgery -Transthoracic echo from 07/10 read within normal limits -Currently on empiric Vancomycin 1gm IV daily (Started 07/13, day 3) and Zosyn 2.25 gm IV Q8h (Started 07/11, day 5) -Will obtain Vancomycin trough level before next dose and adjust dosing as necessary Acute on Chronic Kidney Failure -Has been following with nephrology, Dr Morse as outpatient -BUN/Cr: 85/7.1 -Started on HD during admission however discontinued today after 90 minutes due to development of rapid afib Atrial Fibrillation -Apparently new onset but may be paroxysmal in nature -Rate controlled with stat dose of cardizem 25mg IV -Will observe rate and consider starting scheduled PO cardizem -Cardiology consulted -Will discuss anticoagulation as there is reported history of hemorrhagic stroke 3 months ago as reported by family, pending repeat CT head Anoxic Brain Injury -Secondary to cardiac arrest with hypoxemia -Absent pupillary response -Continue frequent neuro checks -Neurology consulted Cellulitis of B/L Lower Extremity -Related to b/l venous stasis dermatitis -Dressings with xeroform and YADIRA banages -Receiving IV antibiotics as detailed above -Podiatry and Infectious Disease following DVT Prophylaxis -Heparin 5,000units SC Q8H -SCDs <Javid Jacobsen V - Last Filed: 07/15/16 16:05> CCU Subjective - Physician Review Events Since Last Encounter (Free Text): 07/15/16 16:04 Patient is seen and examined at bedside. Case discussed in am rounds with multidisciplinary team. agree with plan of care as detailed in resident's note CCU Objective - Vital Signs / Intake & Output Vital Signs (Last 4 hours): Vital Signs Pulse Resp BP Pulse Ox 07/15/16 15:00 67 18 110/66 100 07/15/16 14:00 63 18 92/57 L 100 07/15/16 13:00 116 H 20 126/72 100 Intake and Output (Last 8hrs): Intake & Output 07/15/16 07/15/16 07/15/16 06:59 14:59 22:59 Intake Total 728 806 Output Total 300 Balance 728 506 Intake: IV 728 456 Intake, Piggyback 350 Output: Ultrafiltrate 300 - Medications Active Medications: Active Medications Generic Name Dose Route Start Last Admin Trade Name Freq PRN Reason Stop Dose Admin Acetaminophen 650 mg 07/10/16 02:12 07/12/16 09:38 Tylenol 325mg Tab PO 650 mg Q6 PRN Administration Pain, moderate (4-7) Acetaminophen 650 mg 07/12/16 22:03 07/12/16 22:24 Tylenol 325mg Tab PO 650 mg Q6 PRN Administration Fever >100.4 F Albuterol/Ipratropium 3 ml 07/14/16 11:48 Duoneb 3 Mg/0.5 Mg (3 Ml) Ud INH RQ4 PRN Shortness of Breath Allopurinol 100 mg 07/10/16 09:00 07/15/16 08:27 Zyloprim PO 100 mg DAILY MARIA GUADALUPE Administration Atorvastatin Calcium 80 mg 07/10/16 09:00 07/15/16 08:26 Lipitor PO 80 mg DAILY MARIA GUADALUPE Administration Bismuth Subsalicylate 524 mg 07/11/16 17:33 Pepto-Bismol PO Q6H PRN Diarrhea Carvedilol 12.5 mg 07/10/16 09:00 07/15/16 10:54 Coreg PO 12.5 mg BID MARIA GUADALUPE Administration Dextrose 0 ml 07/10/16 15:13 Dextrose 50% Inj IVP STAT PRN Hypoglycemia Protocol Protocol Ezetimibe 10 mg 07/10/16 22:00 07/14/16 22:00 Zetia PO Not Given HS MARIA GUADALUPE Ergocalciferol 1 cap 07/10/16 02:30 Drisdol 50,000 Intl Units Cap PO QWK MARIA GUADALUPE Gabapentin 300 mg 07/10/16 09:00 07/15/16 08:26 Neurontin PO 300 mg BID MARIA GUADALUPE Administration Glucagon 0 mg 07/10/16 15:13 Glucagen Diagnostic Kit IM STAT PRN Hypoglycemia Protocol Protocol Heparin Sodium (Porcine) 5,000 units 07/10/16 02:15 07/15/16 08:25 Heparin SC 5,000 units Q8 MARIA GUADALUPE Administration Protocol Piperacillin Sod/Tazobactam 100 mls @ 100 mls/hr 07/11/16 01:00 07/15/16 08: 27 Sod 2.25 gm/ Sodium Chloride IVPB 100 mls/hr Q8 MARIA GUADALUPE Administration Vancomycin HCl 1 gm/ Sodium 250 mls @ 166.667 mls/hr 07/13/16 17:00 07/15/16 08:26 Chloride IVPB 166.667 mls/hr DAILY MARIA GUADALUPE Administration Norepinephrine Bitartrate 8 mg 508 mls @ 9.52 mls/hr 07/15/16 16:00 / Dextrose IV 07/16/16 15:59 .Q24H ONE 2.5 MCG/MIN Insulin Human Regular 0 units 07/10/16 07:30 07/15/16 11:14 Humulin R SC 5 units ACHS MARIA GUADALUPE Administration Protocol Sevelamer HCl 800 mg 07/10/16 09:00 07/15/16 12:19 Renagel PO 800 mg TID MARIA GUADALUPE Administration Sitagliptin Phosphate 25 mg 07/10/16 09:00 07/15/16 08:25 Januvia PO 25 mg DAILY MARIA GUADALUPE Administration Tamsulosin HCl 0.4 mg 07/10/16 09:00 07/15/16 08:25 Flomax PO 0.4 mg DAILY MARIA GUADALUPE Administration - Patient Studies Lab Studies: Microbiology Studies 07/14/16 10:00 Blood Culture - Preliminary Blood NO GROWTH AFTER 24 HOURS Lab Studies 07/15/16 07/15/16 07/15/16 Range/Units 15:54 13:05 09:18 WBC (4.8-10.8) K/uL RBC (4.40-5.90) Mil/uL Hgb (12.0-18.0) g/dL Hct (35.0-51.0) % MCV (80.0-94.0) fl MCH (27.0-31.0) pg MCHC (33.0-37.0) g/dL RDW (11.5-14.5) % Plt Count (130-400) K/uL pCO2 (35-45) mm/Hg pO2 (80-100) mm/Hg HCO3 (21-28) mmol/L ABG pH (7.35-7.45) ABG Total CO2 (22-28) mmol/L ABG O2 Saturation (95-98) % ABG O2 Content (15-23) ML/dL ABG Base Excess (-2.0-3.0) mmol/L ABG Hemoglobin (11.7-17.4) g/dL ABG Carboxyhemoglobin (0.5-1.5) % POC ABG HHb (Measured) (0.0-5.0) % ABG Methemoglobin (0.0-3.0) % ABG O2 Capacity (16-24) mL/dL Mason Test ABG Potassium (3.6-5.2) mmol/L A-a O2 Difference mm/Hg Hgb O2 Saturation (95.0-98.0) % Glucose (75-110) mg/dL Lactate (0.7-2.1) mmol/L Vent Mode Mechanical Rate FiO2 % Tidal Volume PEEP Sodium (132-148) mmol/l Potassium (3.6-5.0) MMOL/L Chloride (98-107) mmol/L Carbon Dioxide (22-30) mmol/L Anion Gap (10-20) BUN (9-20) mg/dl Creatinine (0.8-1.5) mg/dL Est GFR ( Amer) Est GFR (Non-Af Amer) POC Glucose (mg/dL) 374 H 355 H (65-110) mg/dL Random Glucose (75-110) mg/dL Lactic Acid (0.7-2.1) MMOL/L Calcium (8.4-10.2) mg/dL Phosphorus (2.5-4.5) mg/dl Magnesium (1.6-2.3) MG/DL Total Bilirubin (0.2-1.3) mg/dl AST (17-59) U/L ALT (21-72) U/L Alkaline Phosphatase (38-126) U/L Troponin I (0.00-0.120) ng/mL Total Protein (6.3-8.2) G/DL Albumin (3.5-5.0) g/dL Globulin (2.2-3.9) gm/dL Albumin/Globulin Ratio (1.0-2.1) Arterial Blood Potassium (3.6-5.2) mmol/L Stool Occult Blood (NEGATIVE) Random Vancomycin 29.0 ug/mL 07/15/16 07/15/16 07/15/16 Range/Units 05:20 04:50 04:30 WBC (4.8-10.8) K/uL RBC (4.40-5.90) Mil/uL Hgb (12.0-18.0) g/dL Hct (35.0-51.0) % MCV (80.0-94.0) fl MCH (27.0-31.0) pg MCHC (33.0-37.0) g/dL RDW (11.5-14.5) % Plt Count (130-400) K/uL pCO2 46 H (35-45) mm/Hg pO2 174 H (80-100) mm/Hg HCO3 21.0 (21-28) mmol/L ABG pH 7.28 L (7.35-7.45) ABG Total CO2 23.0 (22-28) mmol/L ABG O2 Saturation 99.4 H (95-98) % ABG O2 Content 14.7 L (15-23) ML/dL ABG Base Excess -5.1 L (-2.0-3.0) mmol/L ABG Hemoglobin 10.5 L (11.7-17.4) g/dL ABG Carboxyhemoglobin 1.0 (0.5-1.5) % POC ABG HHb (Measured) 0.6 (0.0-5.0) % ABG Methemoglobin 1.4 (0.0-3.0) % ABG O2 Capacity 14.8 L (16-24) mL/dL Mason Test Yes ABG Potassium (3.6-5.2) mmol/L A-a O2 Difference 268.0 mm/Hg Hgb O2 Saturation 97.0 (95.0-98.0) % Glucose (75-110) mg/dL Lactate (0.7-2.1) mmol/L Vent Mode A/c Mechanical Rate 18 FiO2 70.0 % Tidal Volume 500 PEEP 5 Sodium 135 (132-148) mmol/l Potassium 5.1 H (3.6-5.0) MMOL/L Chloride 97 L (98-107) mmol/L Carbon Dioxide 22 (22-30) mmol/L Anion Gap 21 H (10-20) BUN 85 H (9-20) mg/dl Creatinine 7.1 H (0.8-1.5) mg/dL Est GFR ( Amer) 9 Est GFR (Non-Af Amer) 7 POC Glucose (mg/dL) 384 H (65-110) mg/dL Random Glucose 400 H* D (75-110) mg/dL Lactic Acid (0.7-2.1) MMOL/L Calcium 8.0 L (8.4-10.2) mg/dL Phosphorus (2.5-4.5) mg/dl Magnesium (1.6-2.3) MG/DL Total Bilirubin (0.2-1.3) mg/dl AST (17-59) U/L ALT (21-72) U/L Alkaline Phosphatase (38-126) U/L Troponin I (0.00-0.120) ng/mL Total Protein (6.3-8.2) G/DL Albumin (3.5-5.0) g/dL Globulin (2.2-3.9) gm/dL Albumin/Globulin Ratio (1.0-2.1) Arterial Blood Potassium (3.6-5.2) mmol/L Stool Occult Blood (NEGATIVE) Random Vancomycin ug/mL 07/15/16 07/14/16 07/14/16 Range/Units 04:30 20:54 20:48 WBC 19.4 H (4.8-10.8) K/uL RBC 3.72 L (4.40-5.90) Mil/uL Hgb 10.1 L (12.0-18.0) g/dL Hct 31.9 L (35.0-51.0) % MCV 85.7 (80.0-94.0) fl MCH 27.0 (27.0-31.0) pg MCHC 31.5 L (33.0-37.0) g/dL RDW 18.2 H (11.5-14.5) % Plt Count 290 (130-400) K/uL pCO2 57 H (35-45) mm/Hg pO2 182 H (80-100) mm/Hg HCO3 22.6 (21-28) mmol/L ABG pH 7.25 L (7.35-7.45) ABG Total CO2 26.7 (22-28) mmol/L ABG O2 Saturation 99.4 H (95-98) % ABG O2 Content (15-23) ML/dL ABG Base Excess -3.1 L (-2.0-3.0) mmol/L ABG Hemoglobin (11.7-17.4) g/dL ABG Carboxyhemoglobin (0.5-1.5) % POC ABG HHb (Measured) (0.0-5.0) % ABG Methemoglobin (0.0-3.0) % ABG O2 Capacity (16-24) mL/dL Mason Test Yes ABG Potassium 5.0 (3.6-5.2) mmol/L A-a O2 Difference 388.0 mm/Hg Hgb O2 Saturation (95.0-98.0) % Glucose 333 H (75-110) mg/dL Lactate 1.1 (0.7-2.1) mmol/L Vent Mode A/c Mechanical Rate 16 FiO2 90.0 % Tidal Volume 500 PEEP 5 Sodium 132.0 (132-148) mmol/l Potassium (3.6-5.0) MMOL/L Chloride 101.0 (98-107) mmol/L Carbon Dioxide (22-30) mmol/L Anion Gap (10-20) BUN (9-20) mg/dl Creatinine (0.8-1.5) mg/dL Est GFR ( Amer) Est GFR (Non-Af Amer) POC Glucose (mg/dL) 336 H (65-110) mg/dL Random Glucose (75-110) mg/dL Lactic Acid (0.7-2.1) MMOL/L Calcium (8.4-10.2) mg/dL Phosphorus (2.5-4.5) mg/dl Magnesium (1.6-2.3) MG/DL Total Bilirubin (0.2-1.3) mg/dl AST (17-59) U/L ALT (21-72) U/L Alkaline Phosphatase (38-126) U/L Troponin I (0.00-0.120) ng/mL Total Protein (6.3-8.2) G/DL Albumin (3.5-5.0) g/dL Globulin (2.2-3.9) gm/dL Albumin/Globulin Ratio (1.0-2.1) Arterial Blood Potassium 5.0 (3.6-5.2) mmol/L Stool Occult Blood (NEGATIVE) Random Vancomycin ug/mL 07/14/16 07/14/16 07/14/16 Range/Units 16:15 16:15 14:48 WBC 13.1 H (4.8-10.8) K/uL RBC 3.37 L (4.40-5.90) Mil/uL Hgb 9.0 L (12.0-18.0) g/dL Hct 29.3 L (35.0-51.0) % MCV 87.0 (80.0-94.0) fl MCH 26.7 L (27.0-31.0) pg MCHC 30.7 L (33.0-37.0) g/dL RDW 18.7 H (11.5-14.5) % Plt Count 249 (130-400) K/uL pCO2 (35-45) mm/Hg pO2 (80-100) mm/Hg HCO3 (21-28) mmol/L ABG pH (7.35-7.45) ABG Total CO2 (22-28) mmol/L ABG O2 Saturation (95-98) % ABG O2 Content (15-23) ML/dL ABG Base Excess (-2.0-3.0) mmol/L ABG Hemoglobin (11.7-17.4) g/dL ABG Carboxyhemoglobin (0.5-1.5) % POC ABG HHb (Measured) (0.0-5.0) % ABG Methemoglobin (0.0-3.0) % ABG O2 Capacity (16-24) mL/dL Mason Test ABG Potassium (3.6-5.2) mmol/L A-a O2 Difference mm/Hg Hgb O2 Saturation (95.0-98.0) % Glucose (75-110) mg/dL Lactate (0.7-2.1) mmol/L Vent Mode Mechanical Rate FiO2 % Tidal Volume PEEP Sodium 135 (132-148) mmol/l Potassium 4.9 (3.6-5.0) MMOL/L Chloride 97 L (98-107) mmol/L Carbon Dioxide 26 (22-30) mmol/L Anion Gap 17 (10-20) BUN 76 H (9-20) mg/dl Creatinine 7.1 H (0.8-1.5) mg/dL Est GFR ( Amer) 9 Est GFR (Non-Af Amer) 7 POC Glucose (mg/dL) (65-110) mg/dL Random Glucose 327 H (75-110) mg/dL Lactic Acid 1.5 (0.7-2.1) MMOL/L Calcium 8.3 L (8.4-10.2) mg/dL Phosphorus 8.3 H (2.5-4.5) mg/dl Magnesium 2.5 H (1.6-2.3) MG/DL Total Bilirubin 0.9 (0.2-1.3) mg/dl AST 70 H D (17-59) U/L ALT 41 (21-72) U/L Alkaline Phosphatase 309 H (38-126) U/L Troponin I 0.1200 (0.00-0.120) ng/mL Total Protein 6.7 (6.3-8.2) G/DL Albumin 2.9 L (3.5-5.0) g/dL Globulin 3.8 (2.2-3.9) gm/dL Albumin/Globulin Ratio 0.8 L (1.0-2.1) Arterial Blood Potassium (3.6-5.2) mmol/L Stool Occult Blood (NEGATIVE) Random Vancomycin ug/mL 07/13/16 Range/Units 08:39 WBC (4.8-10.8) K/uL RBC (4.40-5.90) Mil/uL Hgb (12.0-18.0) g/dL Hct (35.0-51.0) % MCV (80.0-94.0) fl MCH (27.0-31.0) pg MCHC (33.0-37.0) g/dL RDW (11.5-14.5) % Plt Count (130-400) K/uL pCO2 (35-45) mm/Hg pO2 (80-100) mm/Hg HCO3 (21-28) mmol/L ABG pH (7.35-7.45) ABG Total CO2 (22-28) mmol/L ABG O2 Saturation (95-98) % ABG O2 Content (15-23) ML/dL ABG Base Excess (-2.0-3.0) mmol/L ABG Hemoglobin (11.7-17.4) g/dL ABG Carboxyhemoglobin (0.5-1.5) % POC ABG HHb (Measured) (0.0-5.0) % ABG Methemoglobin (0.0-3.0) % ABG O2 Capacity (16-24) mL/dL Mason Test ABG Potassium (3.6-5.2) mmol/L A-a O2 Difference mm/Hg Hgb O2 Saturation (95.0-98.0) % Glucose (75-110) mg/dL Lactate (0.7-2.1) mmol/L Vent Mode Mechanical Rate FiO2 % Tidal Volume PEEP Sodium (132-148) mmol/l Potassium (3.6-5.0) MMOL/L Chloride (98-107) mmol/L Carbon Dioxide (22-30) mmol/L Anion Gap (10-20) BUN (9-20) mg/dl Creatinine (0.8-1.5) mg/dL Est GFR ( Amer) Est GFR (Non-Af Amer) POC Glucose (mg/dL) (65-110) mg/dL Random Glucose (75-110) mg/dL Lactic Acid (0.7-2.1) MMOL/L Calcium (8.4-10.2) mg/dL Phosphorus (2.5-4.5) mg/dl Magnesium (1.6-2.3) MG/DL Total Bilirubin (0.2-1.3) mg/dl AST (17-59) U/L ALT (21-72) U/L Alkaline Phosphatase (38-126) U/L Troponin I (0.00-0.120) ng/mL Total Protein (6.3-8.2) G/DL Albumin (3.5-5.0) g/dL Globulin (2.2-3.9) gm/dL Albumin/Globulin Ratio (1.0-2.1) Arterial Blood Potassium (3.6-5.2) mmol/L Stool Occult Blood Negative (NEGATIVE) Random Vancomycin ug/mL Laboratory Results - last 24 hr 07/13/16 07/14/16 07/14/16 08:39 14:48 16:15 WBC 13.1 H RBC 3.37 L Hgb 9.0 L Hct 29.3 L MCV 87.0 MCH 26.7 L MCHC 30.7 L RDW 18.7 H Plt Count 249 pCO2 pO2 HCO3 ABG pH ABG Total CO2 ABG O2 Saturation ABG O2 Content ABG Base Excess ABG Hemoglobin ABG Carboxyhemoglobin POC ABG HHb (Measured) ABG Methemoglobin ABG O2 Capacity Mason Test ABG Potassium A-a O2 Difference Hgb O2 Saturation Glucose Lactate Vent Mode Mechanical Rate FiO2 Tidal Volume PEEP Sodium 135 Potassium 4.9 Chloride 97 L Carbon Dioxide 26 Anion Gap 17 BUN 76 H Creatinine 7.1 H Est GFR ( Amer) 9 Est GFR (Non-Af Amer) 7 POC Glucose (mg/dL) Random Glucose 327 H Lactic Acid Calcium 8.3 L Phosphorus 8.3 H Magnesium 2.5 H Total Bilirubin 0.9 AST 70 H D ALT 41 Alkaline Phosphatase 309 H Troponin I 0.1200 Total Protein 6.7 Albumin 2.9 L Globulin 3.8 Albumin/Globulin Ratio 0.8 L Arterial Blood Potassium Stool Occult Blood Negative Random Vancomycin 07/14/16 07/14/16 07/14/16 16:15 20:48 20:54 WBC RBC Hgb Hct MCV MCH MCHC RDW Plt Count pCO2 57 H pO2 182 H HCO3 22.6 ABG pH 7.25 L ABG Total CO2 26.7 ABG O2 Saturation 99.4 H ABG O2 Content ABG Base Excess -3.1 L ABG Hemoglobin ABG Carboxyhemoglobin POC ABG HHb (Measured) ABG Methemoglobin ABG O2 Capacity Mason Test Yes ABG Potassium 5.0 A-a O2 Difference 388.0 Hgb O2 Saturation Glucose 333 H Lactate 1.1 Vent Mode A/c Mechanical Rate 16 FiO2 90.0 Tidal Volume 500 PEEP 5 Sodium 132.0 Potassium Chloride 101.0 Carbon Dioxide Anion Gap BUN Creatinine Est GFR ( Amer) Est GFR (Non-Af Amer) POC Glucose (mg/dL) 336 H Random Glucose Lactic Acid 1.5 Calcium Phosphorus Magnesium Total Bilirubin AST ALT Alkaline Phosphatase Troponin I Total Protein Albumin Globulin Albumin/Globulin Ratio Arterial Blood Potassium 5.0 Stool Occult Blood Random Vancomycin 07/15/16 07/15/16 07/15/16 04:30 04:30 04:50 WBC 19.4 H RBC 3.72 L Hgb 10.1 L Hct 31.9 L MCV 85.7 MCH 27.0 MCHC 31.5 L RDW 18.2 H Plt Count 290 pCO2 pO2 HCO3 ABG pH ABG Total CO2 ABG O2 Saturation ABG O2 Content ABG Base Excess ABG Hemoglobin ABG Carboxyhemoglobin POC ABG HHb (Measured) ABG Methemoglobin ABG O2 Capacity Mason Test ABG Potassium A-a O2 Difference Hgb O2 Saturation Glucose Lactate Vent Mode Mechanical Rate FiO2 Tidal Volume PEEP Sodium 135 Potassium 5.1 H Chloride 97 L Carbon Dioxide 22 Anion Gap 21 H BUN 85 H Creatinine 7.1 H Est GFR ( Amer) 9 Est GFR (Non-Af Amer) 7 POC Glucose (mg/dL) 384 H Random Glucose 400 H* D Lactic Acid Calcium 8.0 L Phosphorus Magnesium Total Bilirubin AST ALT Alkaline Phosphatase Troponin I Total Protein Albumin Globulin Albumin/Globulin Ratio Arterial Blood Potassium Stool Occult Blood Random Vancomycin 07/15/16 07/15/16 07/15/16 05:20 09:18 13:05 WBC RBC Hgb Hct MCV MCH MCHC RDW Plt Count pCO2 46 H pO2 174 H HCO3 21.0 ABG pH 7.28 L ABG Total CO2 23.0 ABG O2 Saturation 99.4 H ABG O2 Content 14.7 L ABG Base Excess -5.1 L ABG Hemoglobin 10.5 L ABG Carboxyhemoglobin 1.0 POC ABG HHb (Measured) 0.6 ABG Methemoglobin 1.4 ABG O2 Capacity 14.8 L Mason Test Yes ABG Potassium A-a O2 Difference 268.0 Hgb O2 Saturation 97.0 Glucose Lactate Vent Mode A/c Mechanical Rate 18 FiO2 70.0 Tidal Volume 500 PEEP 5 Sodium Potassium Chloride Carbon Dioxide Anion Gap BUN Creatinine Est GFR ( Amer) Est GFR (Non-Af Amer) POC Glucose (mg/dL) 355 H Random Glucose Lactic Acid Calcium Phosphorus Magnesium Total Bilirubin AST ALT Alkaline Phosphatase Troponin I Total Protein Albumin Globulin Albumin/Globulin Ratio Arterial Blood Potassium Stool Occult Blood Random Vancomycin 29.0 07/15/16 15:54 WBC RBC Hgb Hct MCV MCH MCHC RDW Plt Count pCO2 pO2 HCO3 ABG pH ABG Total CO2 ABG O2 Saturation ABG O2 Content ABG Base Excess ABG Hemoglobin ABG Carboxyhemoglobin POC ABG HHb (Measured) ABG Methemoglobin ABG O2 Capacity Mason Test ABG Potassium A-a O2 Difference Hgb O2 Saturation Glucose Lactate Vent Mode Mechanical Rate FiO2 Tidal Volume PEEP Sodium Potassium Chloride Carbon Dioxide Anion Gap BUN Creatinine Est GFR ( Amer) Est GFR (Non-Af Amer) POC Glucose (mg/dL) 374 H Random Glucose Lactic Acid Calcium Phosphorus Magnesium Total Bilirubin AST ALT Alkaline Phosphatase Troponin I Total Protein Albumin Globulin Albumin/Globulin Ratio Arterial Blood Potassium Stool Occult Blood Random Vancomycin EKG/Cardiology Studies: Cardiology / EKG Studies 07/15/16 EKG [ELECTROCARDIOGRAM] Stat Comment: Mode Of Transportation: Reason For Exam: Tachycardia Isolation: Contact Critical Care Progress Note - Nutrition Nutrition: Nutrition Category Date Time Status NPO Diet [DIET] Diets 07/15/16 Breakfast Active
--- NOTE | 2016-07-15 15:16 | CT ---
PROCEDURE: CT HEAD WITHOUT CONTRAST. HISTORY: s/p arrest COMPARISON: 07/14/2016 TECHNIQUE: Axial computed tomography images were obtained through the head/brain without intravenous contrast. Radiation dose: Total exam DLP = 878.79 mGy-cm. This CT exam was performed using one or more of the following dose reduction techniques: Automated exposure control, adjustment of the mA and/or kV according to patient size, and/or use of iterative reconstruction technique. FINDINGS: HEMORRHAGE: No intracranial hemorrhage. BRAIN: No mass effect or edema. Mild diffuse age-appropriate cerebral atrophy. Mild to moderate periventricular white matter lucency consistent with age-related microvascular ischemic change. Old lacunar infarct right lobato radiata/centrum semiovale. No evidence of acute infarct. VENTRICLES: Unremarkable. No hydrocephalus. CALVARIUM: Unremarkable. PARANASAL SINUSES: Unremarkable as visualized. No significant inflammatory changes. MASTOID AIR CELLS: Unremarkable as visualized. No inflammatory changes. OTHER FINDINGS: Dequan tracheal and orogastric tubes are noted. IMPRESSION: No evidence of acute infarct. No intracranial mass or hemorrhage. Involutional changes as described.
[2016-07-15] MEDS ORDERED: Norepinephrine 8 MG in Dextrose 5% In Water 500 ML IV ONE ×4 (15:46→23:19)
--- NOTE | 2016-07-15 17:13 | CP.PCM.PN ---
Subjective - Date & Time of Evaluation Date of Evaluation: 07/15/16 Time of Evaluation: 12:00 - Subjective Subjective: SEEN ON RENAL F/U IN ICU INTUBATED ON LEVOPHED Patient seen and examined at bedside during rounds. Patient was transferred to ICU yesterday after cardiac/respiratory arrest while obtaining CT head. He has since been on mechanical ventilation. Today patient is unresponsive to verbal or painful stimuli. Pupils are non-reactive however patient blinks eyes with saline drops. Not moving extremities spontaneously. Patient started dialysis today, which was discontinued after 90 minutes due to development of afib with RVR. He received IV cardizem for rate control and remains on levophed for pressure support. Patient has been afebrile overnight. Objective - Vital Signs/Intake and Output Vital Signs (last 24 hours): Temp Pulse Resp BP Pulse Ox 99 F 67 18 95/56 L 100 07/15/16 16:00 07/15/16 16:00 07/15/16 16:00 07/15/16 16:02 07/15/16 16:00 Intake and Output: 07/15/16 07/15/16 06:59 18:59 Intake Total 900 806 Output Total 300 Balance 900 506 - Medications Medications: Current Medications Acetaminophen (Tylenol 325mg Tab) 650 mg PO Q6 PRN PRN Reason: Pain, moderate (4-7) Last Admin: 07/12/16 09:38 Dose: 650 mg Acetaminophen (Tylenol 325mg Tab) 650 mg PO Q6 PRN PRN Reason: Fever >100.4 F Last Admin: 07/12/16 22:24 Dose: 650 mg Albuterol/Ipratropium (Duoneb 3 Mg/0.5 Mg (3 Ml) Ud) 3 ml INH RQ4 PRN PRN Reason: Shortness of Breath Allopurinol (Zyloprim) 100 mg PO DAILY [facility] Last Admin: 07/15/16 08:27 Dose: 100 mg Atorvastatin Calcium (Lipitor) 80 mg PO DAILY [facility] Last Admin: 07/15/16 08:26 Dose: 80 mg Bismuth Subsalicylate (Pepto-Bismol) 524 mg PO Q6H PRN PRN Reason: Diarrhea Carvedilol (Coreg) 12.5 mg PO BID [facility] Last Admin: 07/15/16 16:02 Dose: Not Given Dextrose (Dextrose 50% Inj) 0 ml IVP STAT PRN; Protocol PRN Reason: Hypoglycemia Protocol Ezetimibe (Zetia) 10 mg PO HS [facility] Last Admin: 07/14/16 22:00 Dose: Not Given Ergocalciferol (Drisdol 50,000 Intl Units Cap) 1 cap PO QWK [facility] Gabapentin (Neurontin) 300 mg PO BID [facility] Last Admin: 07/15/16 16:00 Dose: 300 mg Glucagon (Glucagen Diagnostic Kit) 0 mg IM STAT PRN; Protocol PRN Reason: Hypoglycemia Protocol Heparin Sodium (Porcine) (Heparin) 5,000 units SC Q8 [facility] PRN Reason: Protocol Last Admin: 07/15/16 16:00 Dose: 5,000 units Piperacillin Sod/Tazobactam (Sod 2.25 gm/ Sodium Chloride) 100 mls @ 100 mls/ hr IVPB Q8 [facility] Last Admin: 07/15/16 16:03 Dose: 100 mls/hr Vancomycin HCl 1 gm/ Sodium (Chloride) 250 mls @ 166.667 mls/hr IVPB DAILY [facility] Last Admin: 07/15/16 08:26 Dose: 166.667 mls/hr Norepinephrine Bitartrate 8 mg (/ Dextrose) 508 mls @ 9.52 mls/hr IV .Q24H ONE PRN Reason: 2.5 MCG/MIN Stop: 07/16/16 16:14 Insulin Human Regular (Humulin R) 0 units SC ACHS [facility] PRN Reason: Protocol Last Admin: 07/15/16 15:55 Dose: 5 units Sevelamer HCl (Renagel) 800 mg PO TID [facility] Last Admin: 07/15/16 16:00 Dose: 800 mg Sitagliptin Phosphate (Januvia) 25 mg PO DAILY [facility] Last Admin: 07/15/16 08:25 Dose: 25 mg Tamsulosin HCl (Flomax) 0.4 mg PO DAILY [facility] Last Admin: 07/15/16 08:25 Dose: 0.4 mg - Labs Labs: 07/15/16 04:30 07/15/16 04:30 PT 11.7 SECONDS (9.6-11.2) H 07/09/16 21:00 INR 1.13 (0.92-1.08) H 07/09/16 21:00 APTT 32.0 SECONDS (23.3-32.5) 07/10/16 05:35 Assessment and Plan - Assessment and Plan (Free Text) Assessment: A ON CKD .. 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
--- NOTE | 2016-07-15 18:03 | CP.PCM.PN ---
Subjective - Date & Time of Evaluation Date of Evaluation: 07/15/16 Time of Evaluation: 11:00 - Subjective Subjective: Mr. Montalvo was seen today in the ICU with his family at bedside. There were no acute events overnight. He continues to be intubated, off sedation, with no spontaneous movements. He breaths over the ventilator and reportedly blinked his eyes to command earlier (per patient's son). Objective - Vital Signs/Intake and Output Vital Signs (last 24 hours): Temp Pulse Resp BP Pulse Ox 99 F 67 18 95/56 L 100 07/15/16 16:00 07/15/16 16:00 07/15/16 16:00 07/15/16 16:02 07/15/16 16:00 Intake and Output: 07/15/16 07/15/16 06:59 18:59 Intake Total 900 806 Output Total 300 Balance 900 506 - Medications Medications: Current Medications Acetaminophen (Tylenol 325mg Tab) 650 mg PO Q6 PRN PRN Reason: Pain, moderate (4-7) Last Admin: 07/12/16 09:38 Dose: 650 mg Acetaminophen (Tylenol 325mg Tab) 650 mg PO Q6 PRN PRN Reason: Fever >100.4 F Last Admin: 07/12/16 22:24 Dose: 650 mg Albuterol/Ipratropium (Duoneb 3 Mg/0.5 Mg (3 Ml) Ud) 3 ml INH RQ4 PRN PRN Reason: Shortness of Breath Allopurinol (Zyloprim) 100 mg PO DAILY [facility] Last Admin: 07/15/16 08:27 Dose: 100 mg Atorvastatin Calcium (Lipitor) 80 mg PO DAILY [facility] Last Admin: 07/15/16 08:26 Dose: 80 mg Bismuth Subsalicylate (Pepto-Bismol) 524 mg PO Q6H PRN PRN Reason: Diarrhea Carvedilol (Coreg) 12.5 mg PO BID [facility] Last Admin: 07/15/16 16:02 Dose: Not Given Dextrose (Dextrose 50% Inj) 0 ml IVP STAT PRN; Protocol PRN Reason: Hypoglycemia Protocol Ezetimibe (Zetia) 10 mg PO HS [facility] Last Admin: 07/14/16 22:00 Dose: Not Given Ergocalciferol (Drisdol 50,000 Intl Units Cap) 1 cap PO QWK [facility] Gabapentin (Neurontin) 300 mg PO BID [facility] Last Admin: 07/15/16 16:00 Dose: 300 mg Glucagon (Glucagen Diagnostic Kit) 0 mg IM STAT PRN; Protocol PRN Reason: Hypoglycemia Protocol Heparin Sodium (Porcine) (Heparin) 5,000 units SC Q8 [facility] PRN Reason: Protocol Last Admin: 07/15/16 16:00 Dose: 5,000 units Piperacillin Sod/Tazobactam (Sod 2.25 gm/ Sodium Chloride) 100 mls @ 100 mls/ hr IVPB Q8 [facility] Last Admin: 07/15/16 16:03 Dose: 100 mls/hr Vancomycin HCl 1 gm/ Sodium (Chloride) 250 mls @ 166.667 mls/hr IVPB DAILY [facility] Last Admin: 07/15/16 08:26 Dose: 166.667 mls/hr Norepinephrine Bitartrate 8 mg (/ Dextrose) 508 mls @ 9.52 mls/hr IV .Q24H ONE PRN Reason: 2.5 MCG/MIN Stop: 07/16/16 16:14 Insulin Human Regular (Humulin R) 0 units SC ACHS [facility] PRN Reason: Protocol Last Admin: 07/15/16 15:55 Dose: 5 units Sevelamer HCl (Renagel) 800 mg PO TID [facility] Last Admin: 07/15/16 16:00 Dose: 800 mg Sitagliptin Phosphate (Januvia) 25 mg PO DAILY [facility] Last Admin: 07/15/16 08:25 Dose: 25 mg Tamsulosin HCl (Flomax) 0.4 mg PO DAILY [facility] Last Admin: 07/15/16 08:25 Dose: 0.4 mg - Labs Labs: 07/15/16 04:30 07/15/16 04:30 PT 11.7 SECONDS (9.6-11.2) H 07/09/16 21:00 INR 1.13 (0.92-1.08) H 07/09/16 21:00 APTT 32.0 SECONDS (23.3-32.5) 07/10/16 05:35 - Respiratory Exam Additional comments: On AC, stable. - Cardiovascular Exam Cardiovascular Exam: REGULAR RHYTHM, +S1, +S2. absent: Murmur Additional comments: paroxysmal atrial fibrillation reported, currently requiring pressors for septic shock. - GI/Abdominal Exam GI & Abdominal Exam: Soft, Normal Bowel Sounds - Neurological Exam Additional comments: Slight decerebrate posturing on the right side, otherwise no movement to painful stimulus. Midbrain reflexes not present, pontine reflexes present and breathing over vent. GCS= 4T Assessment and Plan (1) Anoxic brain injury Assessment & Plan: CT head does not show significant hypoxic injury or edema at this time. An MRI of the brain can be done at a later time when the patient is more stable. Factors other than anoxic brain injury could be contributing to the patient's current encephalopathic state and include renal failure, sepsis and cardiopulmonary compromise. Status: Acute
--- NOTE | 2016-07-15 21:29 | CP.PCM.PN ---
Subjective - Date & Time of Evaluation Date of Evaluation: 07/15/16 Time of Evaluation: 21:30 - Subjective Subjective: patient had an episode of atrial fibrillation with rapid ventricular response. currently in sinus rhythm Objective - Vital Signs/Intake and Output Vital Signs (last 24 hours): Temp Pulse Resp BP Pulse Ox 99 F 74 18 103/61 100 07/15/16 20:00 07/15/16 21:00 07/15/16 21:00 07/15/16 21:00 07/15/16 21:00 Intake and Output: 07/15/16 07/16/16 18:59 06:59 Intake Total 1684 213 Output Total 300 Balance 1384 213 - Medications Medications: Current Medications Acetaminophen (Tylenol 325mg Tab) 650 mg PO Q6 PRN PRN Reason: Pain, moderate (4-7) Last Admin: 07/12/16 09:38 Dose: 650 mg Acetaminophen (Tylenol 325mg Tab) 650 mg PO Q6 PRN PRN Reason: Fever >100.4 F Last Admin: 07/12/16 22:24 Dose: 650 mg Albuterol/Ipratropium (Duoneb 3 Mg/0.5 Mg (3 Ml) Ud) 3 ml INH RQ4 PRN PRN Reason: Shortness of Breath Allopurinol (Zyloprim) 100 mg PO DAILY [facility] Last Admin: 07/15/16 08:27 Dose: 100 mg Atorvastatin Calcium (Lipitor) 80 mg PO DAILY [facility] Last Admin: 07/15/16 08:26 Dose: 80 mg Bismuth Subsalicylate (Pepto-Bismol) 524 mg PO Q6H PRN PRN Reason: Diarrhea Carvedilol (Coreg) 12.5 mg PO BID [facility] Last Admin: 07/15/16 16:02 Dose: Not Given Dextrose (Dextrose 50% Inj) 0 ml IVP STAT PRN; Protocol PRN Reason: Hypoglycemia Protocol Ezetimibe (Zetia) 10 mg PO HS [facility] Last Admin: 07/14/16 22:00 Dose: Not Given Ergocalciferol (Drisdol 50,000 Intl Units Cap) 1 cap PO QWK [facility] Gabapentin (Neurontin) 300 mg PO BID [facility] Last Admin: 07/15/16 16:00 Dose: 300 mg Glucagon (Glucagen Diagnostic Kit) 0 mg IM STAT PRN; Protocol PRN Reason: Hypoglycemia Protocol Heparin Sodium (Porcine) (Heparin) 5,000 units SC Q8 [facility] PRN Reason: Protocol Last Admin: 07/15/16 16:00 Dose: 5,000 units Piperacillin Sod/Tazobactam (Sod 2.25 gm/ Sodium Chloride) 100 mls @ 100 mls/ hr IVPB Q8 [facility] Last Admin: 07/15/16 16:03 Dose: 100 mls/hr Vancomycin HCl 1 gm/ Sodium (Chloride) 250 mls @ 166.667 mls/hr IVPB DAILY [facility] Last Admin: 07/15/16 08:26 Dose: 166.667 mls/hr Norepinephrine Bitartrate 8 mg (/ Dextrose) 508 mls @ 9.52 mls/hr IV .Q24H ONE PRN Reason: 2.5 MCG/MIN Stop: 07/16/16 16:14 Insulin Human Regular (Humulin R) 0 units SC ACHS [facility] PRN Reason: Protocol Last Admin: 07/15/16 15:55 Dose: 5 units Sevelamer HCl (Renagel) 800 mg PO TID [facility] Last Admin: 07/15/16 16:00 Dose: 800 mg Sitagliptin Phosphate (Januvia) 25 mg PO DAILY [facility] Last Admin: 07/15/16 08:25 Dose: 25 mg Tamsulosin HCl (Flomax) 0.4 mg PO DAILY [facility] Last Admin: 07/15/16 08:25 Dose: 0.4 mg - Labs Labs: 07/15/16 04:30 07/15/16 04:30 PT 11.7 SECONDS (9.6-11.2) H 07/09/16 21:00 INR 1.13 (0.92-1.08) H 07/09/16 21:00 APTT 32.0 SECONDS (23.3-32.5) 07/10/16 05:35 - Constitutional Appears: Chronically Ill - Head Exam Head Exam: NORMAL INSPECTION - Eye Exam Eye Exam: Normal appearance - ENT Exam ENT Exam: Mucous Membranes Moist - Neck Exam Neck Exam: absent: Thyromegaly - Respiratory Exam Respiratory Exam: Decreased Breath Sounds - Cardiovascular Exam Cardiovascular Exam: REGULAR RHYTHM - GI/Abdominal Exam GI & Abdominal Exam: Normal Bowel Sounds - Rectal Exam Rectal Exam: Deferred - Extremities Exam Extremities Exam: absent: Pedal Edema - Back Exam Back Exam: NORMAL INSPECTION - Neurological Exam Neurological Exam: Alert - Psychiatric Exam Psychiatric exam: Normal Affect - Skin Skin Exam: Normal Color Assessment and Plan (1) Aortic stenosis Assessment & Plan: conservative therapy Status: Acute (2) Aspiration pneumonia Status: Acute (3) Cardiac arrest Assessment & Plan: supportive care Status: Acute (4) Paroxysmal atrial fibrillation Assessment & Plan: rate control with cardizem Status: Acute
[2016-07-16 05:04] LABS: HEMATOCRIT 32.3 % (35.0-51.0); MEAN CELL VOLUME 84.7 fl (80.0-94.0); MEAN CORPUSCULAR HEMOGLOBIN 26.4 pg (27.0-31.0); MEAN CORPUSCULAR HGB CONC 31.2 g/dL (33.0-37.0); RED CELL DISTRIBUTION WIDTH 18.2 % (11.5-14.5); WHITE BLOOD COUNT 17.3 K/uL (4.8-10.8)
[2016-07-16 05:10] LABS: ABG ALLEN TEST YES; ABG MECHANICAL RATE 18; ARTERIAL BLOOD GAS HCO3 24.1 mmol/L (21-28); ARTERIAL BLOOD GAS MODE PRVC/AC; ARTERIAL BLOOD GAS O2 CAPACITY 14.3 mL/dL (16-24); ARTERIAL BLOOD GAS O2 CONTENT 13.8 ML/dL (15-23); ARTERIAL BLOOD GAS PH 7.35 (7.35-7.45); ARTERIAL BLOOD GAS PO2 70 mm/Hg (80-100); ATERIAL BLOOD GAS PEEP 5; CARBOXYHEMOGLOBIN 1.4 % (0.5-1.5); HHB 3.3 % (0.0-5.0); METHEMOGLOBIN 1.4 % (0.0-3.0)
[2016-07-16 05:18] LABS: ALB/GLOB RATIO 0.7 (1.0-2.1); CALCIUM 7.6 mg/dL (8.4-10.2); POTASSIUM 4.7 MMOL/L (3.6-5.0); TOTAL PROTEIN 6.6 G/DL (6.3-8.2)
--- NOTE | 2016-07-16 06:24 | CP.PCM.PN ---
Subjective - Date & Time of Evaluation Date of Evaluation: 07/16/16 Time of Evaluation: 06:40 - Subjective Subjective: 80-year-old man who was seen in the ICU after suffering from cardiac arrest at the CT scanner yesterday evening (07/14/16). He coded for about 10 minutes, and pulses were regained. Patient's family is at bedside and the patient is not responsive to verbal or painful stimulus. Pt is on intubated and on a ventilator. Dressings are clean, dry, and intact. Objective - Vital Signs/Intake and Output Vital Signs (last 24 hours): Temp Pulse Resp BP Pulse Ox 98.8 F 75 17 109/65 100 07/16/16 04:00 07/16/16 06:00 07/16/16 06:00 07/16/16 06:00 07/16/16 06:00 Intake and Output: 07/15/16 07/16/16 18:59 06:59 Intake Total 1684 1740 Output Total 300 Balance 1384 1740 - Medications Medications: Current Medications Acetaminophen (Tylenol 325mg Tab) 650 mg PO Q6 PRN PRN Reason: Pain, moderate (4-7) Last Admin: 07/12/16 09:38 Dose: 650 mg Acetaminophen (Tylenol 325mg Tab) 650 mg PO Q6 PRN PRN Reason: Fever >100.4 F Last Admin: 07/12/16 22:24 Dose: 650 mg Albuterol/Ipratropium (Duoneb 3 Mg/0.5 Mg (3 Ml) Ud) 3 ml INH RQ4 PRN PRN Reason: Shortness of Breath Allopurinol (Zyloprim) 100 mg PO DAILY [facility] Last Admin: 07/15/16 08:27 Dose: 100 mg Atorvastatin Calcium (Lipitor) 80 mg PO DAILY [facility] Last Admin: 07/15/16 08:26 Dose: 80 mg Bismuth Subsalicylate (Pepto-Bismol) 524 mg PO Q6H PRN PRN Reason: Diarrhea Carvedilol (Coreg) 12.5 mg PO BID [facility] Last Admin: 07/15/16 16:02 Dose: Not Given Dextrose (Dextrose 50% Inj) 0 ml IVP STAT PRN; Protocol PRN Reason: Hypoglycemia Protocol Ezetimibe (Zetia) 10 mg PO HS [facility] Last Admin: 07/15/16 22:51 Dose: 10 mg Ergocalciferol (Drisdol 50,000 Intl Units Cap) 1 cap PO QWK [facility] Gabapentin (Neurontin) 300 mg PO BID [facility] Last Admin: 07/15/16 16:00 Dose: 300 mg Glucagon (Glucagen Diagnostic Kit) 0 mg IM STAT PRN; Protocol PRN Reason: Hypoglycemia Protocol Heparin Sodium (Porcine) (Heparin) 5,000 units SC Q8 [facility] PRN Reason: Protocol Last Admin: 07/16/16 00:48 Dose: 5,000 units Vancomycin HCl 1 gm/ Sodium (Chloride) 250 mls @ 166.667 mls/hr IVPB DAILY [facility] Last Admin: 07/15/16 08:26 Dose: 166.667 mls/hr Norepinephrine Bitartrate 8 mg (/ Dextrose) 508 mls @ 57.15 mls/hr IV .Q8H54M ONE; 15 MCG/MIN PRN Reason: Protocol Stop: 07/16/16 08:12 Last Admin: 07/15/16 23:38 Dose: 15 mcg/min, 57.15 mls/hr Insulin Human Regular (Humulin R) 0 units SC ACHS [facility] PRN Reason: Protocol Last Admin: 07/15/16 22:54 Dose: 3 units Sevelamer HCl (Renagel) 800 mg PO TID [facility] Last Admin: 07/15/16 16:00 Dose: 800 mg Sitagliptin Phosphate (Januvia) 25 mg PO DAILY [facility] Last Admin: 07/15/16 08:25 Dose: 25 mg Tamsulosin HCl (Flomax) 0.4 mg PO DAILY [facility] Last Admin: 07/15/16 08:25 Dose: 0.4 mg - Labs Labs: 07/16/16 04:45 07/16/16 04:45 PT 11.7 SECONDS (9.6-11.2) H 07/09/16 21:00 INR 1.13 (0.92-1.08) H 07/09/16 21:00 APTT 32.0 SECONDS (23.3-32.5) 07/10/16 05:35 - Constitutional Appears: Toxic, Chronically Ill - Extremities Exam Additional comments: Lower extremity focused exam: VASC: DP and PT pulses palpable bilaterally, graded 1/4 and 1/4 respectively. + 1 pitting edema noted to lower extremities b/l, Return of relaxed skin tension lines noted. DERM: Diffuse bilateral lower leg blanchable erythema extending from proximal 1/ 3 of leg terminating superior to the ankle joints with accompanying dyshydrotic epidermal patches. Left leg exhibits turgid un-ruptured serous filled vesicles. Right leg noted to have 3 unroof bulla with weeping serous exudate along anterior-lateral margin of proximal 1/3 of leg. NEURO: Un-respoinsive to painful stimuli. ORTHO: No gross deformities noted. Unable to obtain as patient is unresponsive. - Neurological Exam Neurological Exam: Awake. absent: Alert, Oriented x3 Assessment and Plan - Assessment and Plan (Free Text) Assessment: 80 year old male with bilateral leg venous stasis dermatitis, secondary to venous insufficiency Plan: Patient evaluated. and treated. Patient's current encephalopathic state includes: renal failure, sepsis, and cardiopulmonary compromise. Discussed with attending, Dr. Arora, who is aware of pertinent information and endorses the plan Chart, labs, and vitals reviewed. Afebrile, WBC=17.3 (07/16/16). Blister site dressings consisting of xeroform, abd, DSD, and YADIRA bilaterally were left intact. . Continue IV abx per ID. Podiatry will continue to follow this patient while in house
[2016-07-16] MEDS: Insulin Regular 100 units/ml SC SCH ×4 (07:18→21:41)
--- NOTE | 2016-07-16 10:10 | RAD ---
HISTORY: Intubated. Check placement. Portable upright study 04:45. COMPARISON: July 15, 2016. 05:00. FINDINGS: LUNGS: Persistent right lower lobe infiltrate. PLEURA: Stable right pleural effusion CARDIOVASCULAR: Cardiomegaly. No evidence of acute, significant cardiovascular disease. OSSEOUS STRUCTURES: No significant abnormalities. VISUALIZED UPPER ABDOMEN: Normal. OTHER FINDINGS: Stable position of support apparatus including venous access catheter, endotracheal tube and nasogastric tube. IMPRESSION: No significant interval change compared to the prior examination(s).
[2016-07-16] MEDS: Sevelamer Carb 0.8 gm/Packet PO SCH ×3 (10:13→17:35)
--- NOTE | 2016-07-16 10:48 | CP.CCUPN ---
Addendum entered and electronically signed by Cee Garcia MD 07/16/16 16:42 : Patient developed paroxysmal afib during dialysis and amiodarone bolus administered. Patient currently on amiodarone drip with rate controlled in mid 70s. Patient completed dialysis and 2L of ultrafiltrate was removed. Original Note: <Cee Garcia - Last Filed: 07/16/16 16:06> CCU Subjective - Physician Review Subjective (Free Text): 07/16/16 10:45 Patient seen and examined at bedside with attending during morning rounds. He remains non-verbal on mechanical ventilation. Pupils are fixed, with corneal reflex present. Nurse reports mild gag reflex with suction. Patient not moving extremities spontaneously. No further episodes of afib noted since yesterday. He remains afebrile but still requires pressors. Son is at bedside and all questions answered. Plan for dialysis today. CCU Objective - Vital Signs / Intake & Output Vital Signs (Last 4 hours): Vital Signs Temp Pulse Resp BP Pulse Ox 07/16/16 09:00 75 18 98/56 L 100 07/16/16 08:51 77 102/58 L 07/16/16 08:00 98.6 F 76 17 102/58 L 100 07/16/16 06:52 75 19 110/63 100 Intake and Output (Last 8hrs): Intake & Output 07/15/16 07/16/16 07/16/16 22:59 06:59 14:59 Intake Total 1504 1114 212 Balance 1504 1114 212 Intake: IV 654 654 Intake, Piggyback 100 112 Oral 100 Tube Feeding 300 400 100 Free Water Flush 350 60 Other: # Bowel Movements 1 - Physical Exam Head: Positive for: Atraumatic, Normocephalic Pupils: Positive for: Non-Reactive Extroacular Muscles: Negative for: EOMI Conjunctiva: Positive for: Other (dry). Negative for: Injected, Icteric Ears: Positive for: Normal Mouth: Positive for: Dry Neck: Positive for: Other (Right IJ HD catheter site clean with no signs of erythema.) Respiratory/Chest: Positive for: Rhonchi, Tachypneic, Other (Patient on mechanical ventilation. B/L air entry present with occasional expiratory rhonchii. ). Negative for: Wheezes Cardiovascular: Positive for: Regular Rate and Rhythm. Negative for: Murmurs Abdomen: Positive for: Normal Bowel Sounds. Negative for: Tenderness, Distention Genitourinary Male: Positive for: Other (Right groin TLC site clean, dry, with no surrounding erythema. ) Upper Extremity: Positive for: Edema (left upper extremity edema) Lower Extremity: Positive for: Edema (2+), Other (Lower extremity xeroform/YADIRA bandaging in place to upper calf. 2+ pitting edema noted above level of dressings.) Neurological: Positive for: Other (Unresponsive to verbal or painful stimuli. Pupils fixed. Corneal reflex present. Mild gag reflex. Not moving extremities. ) . Negative for: CN II-XII Intact Psychiatric: Negative for: Alert - Medications Active Medications: Active Medications Generic Name Dose Route Start Last Admin Trade Name Freq PRN Reason Stop Dose Admin Acetaminophen 650 mg 07/10/16 02:12 07/12/16 09:38 Tylenol 325mg Tab PO 650 mg Q6 PRN Administration Pain, moderate (4-7) Acetaminophen 650 mg 07/12/16 22:03 07/12/16 22:24 Tylenol 325mg Tab PO 650 mg Q6 PRN Administration Fever >100.4 F Albuterol/Ipratropium 3 ml 07/14/16 11:48 Duoneb 3 Mg/0.5 Mg (3 Ml) Ud INH RQ4 PRN Shortness of Breath Allopurinol 100 mg 07/10/16 09:00 07/16/16 08:52 Zyloprim PO 100 mg DAILY [facility] Administration Atorvastatin Calcium 80 mg 07/10/16 09:00 07/16/16 08:52 Lipitor PO 80 mg DAILY [facility] Administration Bismuth Subsalicylate 524 mg 07/11/16 17:33 Pepto-Bismol PO Q6H PRN Diarrhea Carvedilol 12.5 mg 07/10/16 09:00 07/16/16 08:51 Coreg PO Not Given BID [facility] Dextrose 0 ml 07/10/16 15:13 Dextrose 50% Inj IVP STAT PRN Hypoglycemia Protocol Protocol Ezetimibe 10 mg 07/10/16 22:00 07/15/16 22:51 Zetia PO 10 mg HS [facility] Administration Ergocalciferol 1 cap 07/10/16 02:30 Drisdol 50,000 Intl Units Cap PO QWK [facility] Gabapentin 300 mg 07/10/16 09:00 07/16/16 08:52 Neurontin PO 300 mg BID [facility] Administration Glucagon 0 mg 07/10/16 15:13 Glucagen Diagnostic Kit IM STAT PRN Hypoglycemia Protocol Protocol Heparin Sodium (Porcine) 5,000 units 07/10/16 02:15 07/16/16 08:51 Heparin SC 5,000 units Q8 [facility] Administration Protocol Vancomycin HCl 1 gm/ Sodium 250 mls @ 166.667 mls/hr 07/13/16 17:00 07/16/16 08:52 Chloride IVPB 166.667 mls/hr DAILY [facility] Administration Phenylephrine HCl 10 mg/ 251 mls @ 0 mls/hr 07/16/16 10:45 Sodium Chloride IV .Q0M [facility] Protocol Per Protocol Insulin Human Regular 0 units 07/16/16 10:34 Humulin R SC ACHS [facility] Protocol Sevelamer Carbonate 0.8 gm 07/16/16 09:30 07/16/16 10:13 Renvela PO 0.8 gm TID [facility] Administration Sitagliptin Phosphate 25 mg 07/10/16 09:00 07/16/16 08:51 Januvia PO 25 mg DAILY [facility] Administration Tamsulosin HCl 0.4 mg 07/10/16 09:00 07/16/16 08:51 Flomax PO 0.4 mg DAILY [facility] Administration - Patient Studies Lab Studies: Microbiology Studies 07/14/16 10:00 Blood Culture - Preliminary Blood NO GROWTH AFTER 48 HOURS 07/15/16 17:52 Gram Stain - Final Trachasp Lab Studies 07/16/16 07/16/16 07/16/16 Range/Units 04:57 04:52 04:45 WBC (4.8-10.8) K/uL RBC (4.40-5.90) Mil/uL Hgb (12.0-18.0) g/dL Hct (35.0-51.0) % MCV (80.0-94.0) fl MCH (27.0-31.0) pg MCHC (33.0-37.0) g/dL RDW (11.5-14.5) % Plt Count (130-400) K/uL pCO2 45 (35-45) mm/Hg pO2 70 L (80-100) mm/Hg HCO3 24.1 (21-28) mmol/L ABG pH 7.35 (7.35-7.45) ABG Total CO2 26.2 (22-28) mmol/L ABG O2 Saturation 96.6 (95-98) % ABG O2 Content 13.8 L (15-23) ML/dL ABG Base Excess -1.0 (-2.0-3.0) mmol/L ABG Hemoglobin 10.4 L (11.7-17.4) g/dL ABG Carboxyhemoglobin 1.4 (0.5-1.5) % POC ABG HHb (Measured) 3.3 (0.0-5.0) % ABG Methemoglobin 1.4 (0.0-3.0) % ABG O2 Capacity 14.3 L (16-24) mL/dL Mason Test Yes A-a O2 Difference 302.0 mm/Hg Hgb O2 Saturation 94.0 L (95.0-98.0) % Vent Mode Prvc/ac Mechanical Rate 18 FiO2 60.0 % Tidal Volume 500 PEEP 5 Sodium 132 (132-148) mmol/l Potassium 4.7 (3.6-5.0) MMOL/L Chloride 94 L (98-107) mmol/L Carbon Dioxide 24 (22-30) mmol/L Anion Gap 19 (10-20) BUN 83 H (9-20) mg/dl Creatinine 6.4 H (0.8-1.5) mg/dL Est GFR ( Amer) 10 Est GFR (Non-Af Amer) 8 POC Glucose (mg/dL) 495 H* (65-110) mg/dL Random Glucose 534 H* D (75-110) mg/dL Calcium 7.6 L (8.4-10.2) mg/dL Total Bilirubin 1.0 (0.2-1.3) mg/dl AST 50 (17-59) U/L ALT 34 (21-72) U/L Alkaline Phosphatase 385 H D (38-126) U/L Total Protein 6.6 (6.3-8.2) G/DL Albumin 2.8 L (3.5-5.0) g/dL Globulin 3.8 (2.2-3.9) gm/dL Albumin/Globulin Ratio 0.7 L (1.0-2.1) Random Vancomycin ug/mL Hepatitis C Antibody (NEGATIVE) 07/16/16 07/15/16 07/15/16 Range/Units 04:45 22:42 15:54 WBC 17.3 H (4.8-10.8) K/uL RBC 3.81 L (4.40-5.90) Mil/uL Hgb 10.1 L (12.0-18.0) g/dL Hct 32.3 L (35.0-51.0) % MCV 84.7 (80.0-94.0) fl MCH 26.4 L (27.0-31.0) pg MCHC 31.2 L (33.0-37.0) g/dL RDW 18.2 H (11.5-14.5) % Plt Count 277 (130-400) K/uL pCO2 (35-45) mm/Hg pO2 (80-100) mm/Hg HCO3 (21-28) mmol/L ABG pH (7.35-7.45) ABG Total CO2 (22-28) mmol/L ABG O2 Saturation (95-98) % ABG O2 Content (15-23) ML/dL ABG Base Excess (-2.0-3.0) mmol/L ABG Hemoglobin (11.7-17.4) g/dL ABG Carboxyhemoglobin (0.5-1.5) % POC ABG HHb (Measured) (0.0-5.0) % ABG Methemoglobin (0.0-3.0) % ABG O2 Capacity (16-24) mL/dL Mason Test A-a O2 Difference mm/Hg Hgb O2 Saturation (95.0-98.0) % Vent Mode Mechanical Rate FiO2 % Tidal Volume PEEP Sodium (132-148) mmol/l Potassium (3.6-5.0) MMOL/L Chloride (98-107) mmol/L Carbon Dioxide (22-30) mmol/L Anion Gap (10-20) BUN (9-20) mg/dl Creatinine (0.8-1.5) mg/dL Est GFR ( Amer) Est GFR (Non-Af Amer) POC Glucose (mg/dL) 449 H* 374 H (65-110) mg/dL Random Glucose (75-110) mg/dL Calcium (8.4-10.2) mg/dL Total Bilirubin (0.2-1.3) mg/dl AST (17-59) U/L ALT (21-72) U/L Alkaline Phosphatase (38-126) U/L Total Protein (6.3-8.2) G/DL Albumin (3.5-5.0) g/dL Globulin (2.2-3.9) gm/dL Albumin/Globulin Ratio (1.0-2.1) Random Vancomycin ug/mL Hepatitis C Antibody (NEGATIVE) 07/15/16 07/12/16 Range/Units 13:05 17:02 WBC (4.8-10.8) K/uL RBC (4.40-5.90) Mil/uL Hgb (12.0-18.0) g/dL Hct (35.0-51.0) % MCV (80.0-94.0) fl MCH (27.0-31.0) pg MCHC (33.0-37.0) g/dL RDW (11.5-14.5) % Plt Count (130-400) K/uL pCO2 (35-45) mm/Hg pO2 (80-100) mm/Hg HCO3 (21-28) mmol/L ABG pH (7.35-7.45) ABG Total CO2 (22-28) mmol/L ABG O2 Saturation (95-98) % ABG O2 Content (15-23) ML/dL ABG Base Excess (-2.0-3.0) mmol/L ABG Hemoglobin (11.7-17.4) g/dL ABG Carboxyhemoglobin (0.5-1.5) % POC ABG HHb (Measured) (0.0-5.0) % ABG Methemoglobin (0.0-3.0) % ABG O2 Capacity (16-24) mL/dL Mason Test A-a O2 Difference mm/Hg Hgb O2 Saturation (95.0-98.0) % Vent Mode Mechanical Rate FiO2 % Tidal Volume PEEP Sodium (132-148) mmol/l Potassium (3.6-5.0) MMOL/L Chloride (98-107) mmol/L Carbon Dioxide (22-30) mmol/L Anion Gap (10-20) BUN (9-20) mg/dl Creatinine (0.8-1.5) mg/dL Est GFR ( Amer) Est GFR (Non-Af Amer) POC Glucose (mg/dL) (65-110) mg/dL Random Glucose (75-110) mg/dL Calcium (8.4-10.2) mg/dL Total Bilirubin (0.2-1.3) mg/dl AST (17-59) U/L ALT (21-72) U/L Alkaline Phosphatase (38-126) U/L Total Protein (6.3-8.2) G/DL Albumin (3.5-5.0) g/dL Globulin (2.2-3.9) gm/dL Albumin/Globulin Ratio (1.0-2.1) Random Vancomycin 29.0 ug/mL Hepatitis C Antibody Negative (NEGATIVE) Laboratory Results - last 24 hr 07/12/16 07/15/16 07/15/16 17:02 13:05 15:54 WBC RBC Hgb Hct MCV MCH MCHC RDW Plt Count pCO2 pO2 HCO3 ABG pH ABG Total CO2 ABG O2 Saturation ABG O2 Content ABG Base Excess ABG Hemoglobin ABG Carboxyhemoglobin POC ABG HHb (Measured) ABG Methemoglobin ABG O2 Capacity Mason Test A-a O2 Difference Hgb O2 Saturation Vent Mode Mechanical Rate FiO2 Tidal Volume PEEP Sodium Potassium Chloride Carbon Dioxide Anion Gap BUN Creatinine Est GFR ( Amer) Est GFR (Non-Af Amer) POC Glucose (mg/dL) 374 H Random Glucose Calcium Total Bilirubin AST ALT Alkaline Phosphatase Total Protein Albumin Globulin Albumin/Globulin Ratio Random Vancomycin 29.0 Hepatitis C Antibody Negative 07/15/16 07/16/16 07/16/16 22:42 04:45 04:45 WBC 17.3 H RBC 3.81 L Hgb 10.1 L Hct 32.3 L MCV 84.7 MCH 26.4 L MCHC 31.2 L RDW 18.2 H Plt Count 277 pCO2 pO2 HCO3 ABG pH ABG Total CO2 ABG O2 Saturation ABG O2 Content ABG Base Excess ABG Hemoglobin ABG Carboxyhemoglobin POC ABG HHb (Measured) ABG Methemoglobin ABG O2 Capacity Mason Test A-a O2 Difference Hgb O2 Saturation Vent Mode Mechanical Rate FiO2 Tidal Volume PEEP Sodium 132 Potassium 4.7 Chloride 94 L Carbon Dioxide 24 Anion Gap 19 BUN 83 H Creatinine 6.4 H Est GFR ( Amer) 10 Est GFR (Non-Af Amer) 8 POC Glucose (mg/dL) 449 H* Random Glucose 534 H* D Calcium 7.6 L Total Bilirubin 1.0 AST 50 ALT 34 Alkaline Phosphatase 385 H D Total Protein 6.6 Albumin 2.8 L Globulin 3.8 Albumin/Globulin Ratio 0.7 L Random Vancomycin Hepatitis C Antibody 07/16/16 07/16/16 04:52 04:57 WBC RBC Hgb Hct MCV MCH MCHC RDW Plt Count pCO2 45 pO2 70 L HCO3 24.1 ABG pH 7.35 ABG Total CO2 26.2 ABG O2 Saturation 96.6 ABG O2 Content 13.8 L ABG Base Excess -1.0 ABG Hemoglobin 10.4 L ABG Carboxyhemoglobin 1.4 POC ABG HHb (Measured) 3.3 ABG Methemoglobin 1.4 ABG O2 Capacity 14.3 L Mason Test Yes A-a O2 Difference 302.0 Hgb O2 Saturation 94.0 L Vent Mode Prvc/ac Mechanical Rate 18 FiO2 60.0 Tidal Volume 500 PEEP 5 Sodium Potassium Chloride Carbon Dioxide Anion Gap BUN Creatinine Est GFR ( Amer) Est GFR (Non-Af Amer) POC Glucose (mg/dL) 495 H* Random Glucose Calcium Total Bilirubin AST ALT Alkaline Phosphatase Total Protein Albumin Globulin Albumin/Globulin Ratio Random Vancomycin Hepatitis C Antibody Fingerstick Blood Sugar Results: 495 Review of Systems - Review of Systems Systems not reviewed;Unavailable: Intubated Assessment/Plan - Assessment and Plan (Free Text) Assessment: 80 y/o with PMH including HTN, DM2, Hyperlipidemia, Morbid obesity, CKD Stage IV presented to [facility] for 2 weeks of progressive abdominal pain, lower extremity erythema and generalized malaise. He was subsequently admitted for lower extremity cellulitis, possible cholecystitis and acute on chronic CKD associated with multiple electrolyte abnormalities. During admission, patient had signs of lethargy and was sent for CT Head and Chest, during which an [employer] was called. [employer] converted to code blue for cardiac/respiratory arrest. Patient was coded for 10 minutes and was intubated, with return of spontaneous circulation. Patient was then transferred to ICU. Current ICU day 3. Plan: Acute Respiratory Failure -Etiology possibly secondary to aspiration pneumonia? -Patient intubated on 07/14/16 due to cardiac/respiratory arrest -Currently on mechanical ventilation, day 3 -Vent settings overnight: 18/500/5/60% -Patient had trial of 12/500/5/50% from 09:45 - 10:45 this morning, tolerated well -O2 sat has been stable at 100% -Will follow ABG and continue to wean as tolerated Sepsis, with Strep Anginosus Bacteremia -Etiology secondary to GI vs Skin vs Aspiration pneumonia -Patient remains afebrile. WBC: 17.3 -Blood culture from 07/09 detected strep anginosus sensitive to Vancomycin -Repeat blood cultures from 07/09 and 07/14 reveal no growth to date -Lactic acid: 1.5 -Currently on levophed drip at 17.5mcg/min, however patient developed paroxysmal afib yesterday which resolved with cardizem -Will switch to phenylephrine to prevent any further paroxysms. Will consider decreasing pressors as tolerated -Acute cholecystitis ruled out by general surgery -Transthoracic echo from 07/10 read within normal limits -Will consider repeat echo after discussing with cardiology -Currently on empiric abx: Vancomycin 1gm IV daily (07/13-07/15, will hold today and follow AM trough) and Zosyn 2.25 gm IV Q8h (Started 07/11, day 6) -Will obtain Vancomycin trough level and adjust dosing as necessary Acute on Chronic Kidney Failure -Has been following with nephrology, Dr Morse as outpatient -BUN/Cr: 85/7.1 -Started on HD during admission however discontinued today after 90 minutes due to development of rapid afib Paroxysmal Atrial Fibrillation -Had episode of afib yesterday during dialysis which resolved with one time dose of cardizem 25mg IV -Rate controlled. Sinus rhythm today. -Will switch pressor from levophed to phenylephrine to prevent any further paroxysms -Cardiology consulted Anoxic Brain Injury -Secondary to cardiac arrest with hypoxemia -Absent pupillary response -Continue frequent neuro checks -Neurology consulted Cellulitis of B/L Lower Extremity -Related to b/l venous stasis dermatitis -Dressings with xeroform and YADIRA banages -Receiving IV antibiotics as detailed above -Podiatry and Infectious Disease following DVT Prophylaxis -Heparin 5,000units SC Q8H <Vito Mckeon - Last Filed: 07/16/16 18:38> CCU Subjective - Physician Review Subjective (Free Text): Time spent with this patient did not overlap with any other provider's medical or critical care time. Additionally the code selected for the services rendered in this note includes the time spent: talking to the patients family, associated physicians and reviewing hospital data/results not listed here which extended to a total of 30 minutes. Attestation: Patient seen and examined at the bedside with Resident Dr. Sung Garcia; and I agree with his outline of plans and management documented as discussed on AM rounds reflecting my review of all applicable clinical data, and participation in the care of the patient throughout the day in ICU; today, July 16, 2016.
--- NOTE | 2016-07-16 10:49 | CP.PCM.PN ---
<Mary Britton - Last Filed: 07/16/16 10:47> Subjective - Date & Time of Evaluation Date of Evaluation: 07/16/16 Time of Evaluation: 10:47 - Subjective Subjective: evaluated with attending. no overnight events. pt intubated. no pupillary response, no movement to command, no painful stimuli response. no ROS on questionining Objective - Vital Signs/Intake and Output Vital Signs (last 24 hours): Temp Pulse Resp BP Pulse Ox 98.6 F 75 18 98/56 L 100 07/16/16 08:00 07/16/16 09:00 07/16/16 09:00 07/16/16 09:00 07/16/16 09:00 Intake and Output: 07/16/16 07/16/16 06:59 18:59 Intake Total 1740 212 Balance 1740 212 - Medications Medications: Current Medications Acetaminophen (Tylenol 325mg Tab) 650 mg PO Q6 PRN PRN Reason: Pain, moderate (4-7) Last Admin: 07/12/16 09:38 Dose: 650 mg Acetaminophen (Tylenol 325mg Tab) 650 mg PO Q6 PRN PRN Reason: Fever >100.4 F Last Admin: 07/12/16 22:24 Dose: 650 mg Albuterol/Ipratropium (Duoneb 3 Mg/0.5 Mg (3 Ml) Ud) 3 ml INH RQ4 PRN PRN Reason: Shortness of Breath Allopurinol (Zyloprim) 100 mg PO DAILY [facility] Last Admin: 07/16/16 08:52 Dose: 100 mg Atorvastatin Calcium (Lipitor) 80 mg PO DAILY [facility] Last Admin: 07/16/16 08:52 Dose: 80 mg Bismuth Subsalicylate (Pepto-Bismol) 524 mg PO Q6H PRN PRN Reason: Diarrhea Carvedilol (Coreg) 12.5 mg PO BID [facility] Last Admin: 07/16/16 08:51 Dose: Not Given Dextrose (Dextrose 50% Inj) 0 ml IVP STAT PRN; Protocol PRN Reason: Hypoglycemia Protocol Ezetimibe (Zetia) 10 mg PO HS [facility] Last Admin: 07/15/16 22:51 Dose: 10 mg Ergocalciferol (Drisdol 50,000 Intl Units Cap) 1 cap PO QWK [facility] Gabapentin (Neurontin) 300 mg PO BID [facility] Last Admin: 07/16/16 08:52 Dose: 300 mg Glucagon (Glucagen Diagnostic Kit) 0 mg IM STAT PRN; Protocol PRN Reason: Hypoglycemia Protocol Heparin Sodium (Porcine) (Heparin) 5,000 units SC Q8 [facility] PRN Reason: Protocol Last Admin: 07/16/16 08:51 Dose: 5,000 units Vancomycin HCl 1 gm/ Sodium (Chloride) 250 mls @ 166.667 mls/hr IVPB DAILY [facility] Last Admin: 07/16/16 08:52 Dose: 166.667 mls/hr Phenylephrine HCl 10 mg/ (Sodium Chloride) 251 mls @ 0 mls/hr IV .Q0M [facility]; Per Protocol PRN Reason: Protocol Insulin Human Regular (Humulin R) 0 units SC ACHS [facility] PRN Reason: Protocol Sevelamer Carbonate (Renvela) 0.8 gm PO TID [facility] Last Admin: 07/16/16 10:13 Dose: 0.8 gm Sitagliptin Phosphate (Januvia) 25 mg PO DAILY [facility] Last Admin: 07/16/16 08:51 Dose: 25 mg Tamsulosin HCl (Flomax) 0.4 mg PO DAILY [facility] Last Admin: 07/16/16 08:51 Dose: 0.4 mg - Labs Labs: 07/16/16 04:45 07/16/16 04:45 PT 11.7 SECONDS (9.6-11.2) H 07/09/16 21:00 INR 1.13 (0.92-1.08) H 07/09/16 21:00 APTT 32.0 SECONDS (23.3-32.5) 07/10/16 05:35 - Constitutional Appears: No Acute Distress - Head Exam Head Exam: ATRAUMATIC - Eye Exam Pupil Exam: Fixed (no pupillary reflex) - ENT Exam Additional comments: intubated - Neck Exam Neck Exam: Normal Inspection - Respiratory Exam Respiratory Exam: Clear to Ausculation Bilateral Additional comments: intubated - Cardiovascular Exam Cardiovascular Exam: Irregular Rhythm - GI/Abdominal Exam GI & Abdominal Exam: Soft - Extremities Exam Extremities Exam: Pedal Edema (elizabeth wrapping lower extremities) Additional comments: upper ext swelling - Neurological Exam Neurological Exam: absent: Alert, Awake, Oriented x3 Additional comments: GCS 2, E1V(T)M1 - Skin Skin Exam: Dry Assessment and Plan - Assessment and Plan (Free Text) Assessment: 80yo M with PMHx HTN, diabetes, prostate BPH and CKD admitted for acute on chronic kidney injury, cellulitis. bacteremia -2/2 cellulitis, PNA, or other source. h/o cath placement -blood cx: S anginosus/constellatus -ID on board, appreciate input -Vanc/Zosyn -pressors aspiration PNA -CXR: RLL PNA -ID on board, appreciate input -intubated PS 18/5/60% pAfib -Cardio on board, appreciate input -coreg acute on CKD -emergent HD -Nephro on board, appreciate input -Renagel cellulitis -Vanc/Zosyn -ID on board, appreciate input -podiatry on board, appreciate input anoxic brain injury -GCS 2, E1V(T)M1 -2/2 renal failure, sepsis, or cardiorenal syndrome -CT head no acute change -neuro on board, appreciate input -intubated PS 18/5/60% anasarca -low albumin -monitor -HD -Nephro on board, appreciate input HTN -coreg HLD -statin -zetia DM -held linagliptin, pioglitazone -januvia -SSI -accuchecks DVT ppx -heparin <Tang Soolrio K - Last Filed: 07/18/16 15:52> Objective - Vital Signs/Intake and Output Vital Signs (last 24 hours): Temp Pulse Resp BP Pulse Ox 97.7 F 85 17 103/61 100 07/18/16 12:23 07/18/16 15:00 07/18/16 15:00 07/18/16 15:00 07/18/16 15:00 Intake and Output: 07/18/16 07/18/16 06:59 18:59 Intake Total 1440 1032.0 Balance 1440 1032.0 - Medications Medications: Current Medications Acetaminophen (Tylenol 325mg Tab) 650 mg PO Q6 PRN PRN Reason: Pain, moderate (4-7) Last Admin: 07/12/16 09:38 Dose: 650 mg Acetaminophen (Tylenol 325mg Tab) 650 mg PO Q6 PRN PRN Reason: Fever >100.4 F Last Admin: 07/18/16 00:21 Dose: 650 mg Albuterol/Ipratropium (Duoneb 3 Mg/0.5 Mg (3 Ml) Ud) 3 ml INH RQ4 PRN PRN Reason: Shortness of Breath Last Admin: 07/17/16 19:14 Dose: 3 ml Allopurinol (Zyloprim) 100 mg PO DAILY [facility] Last Admin: 07/18/16 11:58 Dose: 100 mg Atorvastatin Calcium (Lipitor) 80 mg PO DAILY [facility] Last Admin: 07/18/16 11:56 Dose: 80 mg Bismuth Subsalicylate (Pepto-Bismol) 524 mg PO Q6H PRN PRN Reason: Diarrhea Carvedilol (Coreg) 12.5 mg PO BID [facility] Last Admin: 07/18/16 11:55 Dose: Not Given Dextrose (Dextrose 50% Inj) 0 ml IVP STAT PRN; Protocol PRN Reason: Hypoglycemia Protocol Ezetimibe (Zetia) 10 mg PO HS [facility] Last Admin: 07/17/16 22:06 Dose: 10 mg Ergocalciferol (Drisdol 50,000 Intl Units Cap) 1 cap PO QWK [facility] Gabapentin (Neurontin) 300 mg PO BID [facility] Last Admin: 07/18/16 11:56 Dose: Not Given Glucagon (Glucagen Diagnostic Kit) 0 mg IM STAT PRN; Protocol PRN Reason: Hypoglycemia Protocol Piperacillin Sod/Tazobactam (Sod 2.25 gm/ Sodium Chloride) 100 mls @ 100 mls/ hr IVPB Q8 [facility] Last Admin: 07/18/16 11:57 Dose: 100 mls/hr Amiodarone HCl 900 mg/ (Dextrose) 518 mls @ 34.53 mls/hr IVPB .Q15H1M [facility]; 1 MG /MIN PRN Reason: Protocol Last Admin: 07/16/16 12:31 Dose: 34.53 mls/hr Phenylephrine HCl 20 mg/ (Sodium Chloride) 502 mls @ 0 mls/hr IV .Q0M [facility]; Per Protocol PRN Reason: Protocol Last Admin: 07/18/16 14:13 Dose: 60 mcg/min, 90.36 mls/hr Vancomycin HCl 1 gm/ Sodium (Chloride) 250 mls @ 166.667 mls/hr IVPB Q72H [facility] Insulin Detemir (Levemir) [address] [facility] Last Admin: 07/17/16 22:06 Dose: 25 units Insulin Human Regular (Humulin R) 0 units SC ACHS [facility] PRN Reason: Protocol Last Admin: 07/18/16 12:11 Dose: 4 units Sevelamer Carbonate (Renvela) 0.8 gm PO TID [facility] Last Admin: 07/18/16 12:00 Dose: 0.8 gm Sitagliptin Phosphate (Januvia) 25 mg PO DAILY [facility] Last Admin: 07/18/16 11:56 Dose: 25 mg Tamsulosin HCl (Flomax) 0.4 mg PO DAILY [facility] Last Admin: 07/18/16 11:55 Dose: 0.4 mg - Labs Labs: 07/18/16 04:20 07/18/16 04:20 PT 12.5 SECONDS (9.6-11.2) H 07/17/16 04:35 INR 1.20 (0.92-1.08) H 07/17/16 04:35 APTT 34.8 SECONDS (23.3-32.5) H 07/17/16 04:35 Assessment and Plan - Assessment and Plan (Free Text) Assessment: Patient seen and examined with residents in rounds. Case, condition, investigative work up and plan discussed in detail. Agree with residents progress note. Plan: As ordered. (Tang Solorio MD)
[2016-07-16] MEDS ORDERED: Amiodarone 150mg/3 ml vial ONE (11:33)
[2016-07-16] MEDS ORDERED: Phenylephrine 10 mg/ml Inj ONE (11:42)
[2016-07-16] MEDS ORDERED: Amiodarone 900 MG in Dextrose 5% In Water 500 ML IVPB SCH (12:00)
--- NOTE | 2016-07-16 13:40 | CARD ---
APPROVED REPORT EKG Measurement Heart [id number] <Conclusion> Atrial fibrillation with rapid ventricular response Left bundle branch block Abnormal ECG
--- NOTE | 2016-07-16 13:50 | CP.PCM.PN ---
Subjective - Date & Time of Evaluation Date of Evaluation: 07/16/16 Time of Evaluation: 07:00 - Subjective Subjective: remains non-verbal on mechanical ventilation. Pupils are fixed, afeb on pressors IV rx to cont Objective - Vital Signs/Intake and Output Vital Signs (last 24 hours): Temp Pulse Resp BP Pulse Ox 98.6 F 85 18 95/55 L 100 07/16/16 08:00 07/16/16 13:00 07/16/16 13:00 07/16/16 13:00 07/16/16 13:00 Intake and Output: 07/16/16 07/16/16 06:59 18:59 Intake Total 1740 444 Balance 1740 444 - Medications Medications: Current Medications Acetaminophen (Tylenol 325mg Tab) 650 mg PO Q6 PRN PRN Reason: Pain, moderate (4-7) Last Admin: 07/12/16 09:38 Dose: 650 mg Acetaminophen (Tylenol 325mg Tab) 650 mg PO Q6 PRN PRN Reason: Fever >100.4 F Last Admin: 07/12/16 22:24 Dose: 650 mg Albuterol/Ipratropium (Duoneb 3 Mg/0.5 Mg (3 Ml) Ud) 3 ml INH RQ4 PRN PRN Reason: Shortness of Breath Allopurinol (Zyloprim) 100 mg PO DAILY [facility] Last Admin: 07/16/16 08:52 Dose: 100 mg Atorvastatin Calcium (Lipitor) 80 mg PO DAILY [facility] Last Admin: 07/16/16 08:52 Dose: 80 mg Bismuth Subsalicylate (Pepto-Bismol) 524 mg PO Q6H PRN PRN Reason: Diarrhea Carvedilol (Coreg) 12.5 mg PO BID [facility] Last Admin: 07/16/16 08:51 Dose: Not Given Dextrose (Dextrose 50% Inj) 0 ml IVP STAT PRN; Protocol PRN Reason: Hypoglycemia Protocol Ezetimibe (Zetia) 10 mg PO HS [facility] Last Admin: 07/15/16 22:51 Dose: 10 mg Ergocalciferol (Drisdol 50,000 Intl Units Cap) 1 cap PO QWK [facility] Gabapentin (Neurontin) 300 mg PO BID [facility] Last Admin: 07/16/16 08:52 Dose: 300 mg Glucagon (Glucagen Diagnostic Kit) 0 mg IM STAT PRN; Protocol PRN Reason: Hypoglycemia Protocol Heparin Sodium (Porcine) (Heparin) 5,000 units SC Q8 [facility] PRN Reason: Protocol Last Admin: 07/16/16 08:51 Dose: 5,000 units Vancomycin HCl 1 gm/ Sodium (Chloride) 250 mls @ 166.667 mls/hr IVPB DAILY [facility] Last Admin: 07/16/16 08:52 Dose: 166.667 mls/hr Phenylephrine HCl 10 mg/ (Sodium Chloride) 251 mls @ 0 mls/hr IV .Q0M [facility]; Per Protocol PRN Reason: Protocol Last Titration: 07/16/16 12:00 Dose: 30 mcg/min, 45.18 mls/hr Piperacillin Sod/Tazobactam (Sod 2.25 gm/ Sodium Chloride) 100 mls @ 100 mls/ hr IVPB Q8 [facility] Amiodarone HCl 900 mg/ (Dextrose) 518 mls @ 34.53 mls/hr IVPB .Q15H1M [facility]; 1 MG /MIN PRN Reason: Protocol Last Admin: 07/16/16 12:31 Dose: 34.53 mls/hr Insulin Human Regular (Humulin R) 0 units SC ACHS [facility] PRN Reason: Protocol Last Admin: 07/16/16 12:34 Dose: 6 units Sevelamer Carbonate (Renvela) 0.8 gm PO TID [facility] Last Admin: 07/16/16 10:13 Dose: 0.8 gm Sitagliptin Phosphate (Januvia) 25 mg PO DAILY [facility] Last Admin: 07/16/16 08:51 Dose: 25 mg Tamsulosin HCl (Flomax) 0.4 mg PO DAILY [facility] Last Admin: 07/16/16 08:51 Dose: 0.4 mg - Labs Labs: 07/16/16 04:45 07/16/16 04:45 PT 11.7 SECONDS (9.6-11.2) H 07/09/16 21:00 INR 1.13 (0.92-1.08) H 07/09/16 21:00 APTT 32.0 SECONDS (23.3-32.5) 07/10/16 05:35 - Constitutional Appears: Confused, Cachectic, Chronically Ill - Head Exam Head Exam: NORMOCEPHALIC - Eye Exam Eye Exam: absent: Scleral icterus - ENT Exam ENT Exam: Mucous Membranes Dry - Neck Exam Neck Exam: absent: Lymphadenopathy - Respiratory Exam Respiratory Exam: Decreased Breath Sounds, Rhonchi - Cardiovascular Exam Cardiovascular Exam: REGULAR RHYTHM - GI/Abdominal Exam GI & Abdominal Exam: Distended, Soft - Rectal Exam Rectal Exam: Deferred - Exam Exam: NORMAL INSPECTION - Extremities Exam Extremities Exam: absent: Calf Tenderness, Pedal Edema - Back Exam Back Exam: absent: CVA tenderness (L), CVA tenderness (R) Assessment and Plan (1) Acute kidney failure Status: Acute (2) Cellulitis of right lower extremity Status: Acute (3) Bacteremia Status: Acute (4) Bacteremia Status: Acute - Assessment and Plan (Free Text) Assessment: strp sepsis r/o endocarditis coma s/p cardiac arrest
--- NOTE | 2016-07-16 17:24 | CP.PCM.PN ---
Subjective - Date & Time of Evaluation Date of Evaluation: 07/16/16 Time of Evaluation: 11:00 - Subjective Subjective: Mr. Montalvo was seen and examined today in the ICU while he was receiving dialysis. His son and family member were present. I discussed the results of the CT scan with them. There have been no acute events overnight and no change in the patient's condition. Objective - Vital Signs/Intake and Output Vital Signs (last 24 hours): Temp Pulse Resp BP Pulse Ox 99.4 F 75 19 91/51 L 100 07/16/16 15:50 07/16/16 15:50 07/16/16 15:50 07/16/16 15:50 07/16/16 15:50 Intake and Output: 07/16/16 07/16/16 06:59 18:59 Intake Total 1740 980 Output Total 2000 Balance 1740 -1020 - Medications Medications: Current Medications Acetaminophen (Tylenol 325mg Tab) 650 mg PO Q6 PRN PRN Reason: Pain, moderate (4-7) Last Admin: 07/12/16 09:38 Dose: 650 mg Acetaminophen (Tylenol 325mg Tab) 650 mg PO Q6 PRN PRN Reason: Fever >100.4 F Last Admin: 07/12/16 22:24 Dose: 650 mg Albuterol/Ipratropium (Duoneb 3 Mg/0.5 Mg (3 Ml) Ud) 3 ml INH RQ4 PRN PRN Reason: Shortness of Breath Allopurinol (Zyloprim) 100 mg PO DAILY [facility] Last Admin: 07/16/16 08:52 Dose: 100 mg Atorvastatin Calcium (Lipitor) 80 mg PO DAILY [facility] Last Admin: 07/16/16 08:52 Dose: 80 mg Bismuth Subsalicylate (Pepto-Bismol) 524 mg PO Q6H PRN PRN Reason: Diarrhea Carvedilol (Coreg) 12.5 mg PO BID [facility] Last Admin: 07/16/16 08:51 Dose: Not Given Dextrose (Dextrose 50% Inj) 0 ml IVP STAT PRN; Protocol PRN Reason: Hypoglycemia Protocol Ezetimibe (Zetia) 10 mg PO HS [facility] Last Admin: 07/15/16 22:51 Dose: 10 mg Ergocalciferol (Drisdol 50,000 Intl Units Cap) 1 cap PO QWK [facility] Gabapentin (Neurontin) 300 mg PO BID [facility] Last Admin: 07/16/16 16:18 Dose: 300 mg Glucagon (Glucagen Diagnostic Kit) 0 mg IM STAT PRN; Protocol PRN Reason: Hypoglycemia Protocol Heparin Sodium (Porcine) (Heparin) 5,000 units SC Q8 [facility] PRN Reason: Protocol Last Admin: 07/16/16 16:17 Dose: 5,000 units Phenylephrine HCl 10 mg/ (Sodium Chloride) 251 mls @ 0 mls/hr IV .Q0M [facility]; Per Protocol PRN Reason: Protocol Last Titration: 07/16/16 12:00 Dose: 30 mcg/min, 45.18 mls/hr Piperacillin Sod/Tazobactam (Sod 2.25 gm/ Sodium Chloride) 100 mls @ 100 mls/ hr IVPB Q8 [facility] Last Admin: 07/16/16 16:16 Dose: 100 mls/hr Amiodarone HCl 900 mg/ (Dextrose) 518 mls @ 34.53 mls/hr IVPB .Q15H1M [facility]; 1 MG /MIN PRN Reason: Protocol Last Admin: 07/16/16 12:31 Dose: 34.53 mls/hr Vancomycin HCl 1 gm/ Sodium (Chloride) 250 mls @ 166.667 mls/hr IVPB Q48H [facility] Insulin Human Regular (Humulin R) 0 units SC ACHS [facility] PRN Reason: Protocol Last Admin: 07/16/16 12:34 Dose: 6 units Sevelamer Carbonate (Renvela) 0.8 gm PO TID [facility] Last Admin: 07/16/16 14:00 Dose: 0.8 gm Sitagliptin Phosphate (Januvia) 25 mg PO DAILY [facility] Last Admin: 07/16/16 08:51 Dose: 25 mg Tamsulosin HCl (Flomax) 0.4 mg PO DAILY [facility] Last Admin: 07/16/16 08:51 Dose: 0.4 mg - Labs Labs: 07/16/16 04:45 07/16/16 04:45 PT 11.7 SECONDS (9.6-11.2) H 07/09/16 21:00 INR 1.13 (0.92-1.08) H 07/09/16 21:00 APTT 32.0 SECONDS (23.3-32.5) 07/10/16 05:35 - Head Exam Head Exam: ATRAUMATIC, NORMAL INSPECTION, NORMOCEPHALIC - Eye Exam Eye Exam: Normal appearance - ENT Exam ENT Exam: Mucous Membranes Moist, Normal Exam - Respiratory Exam Respiratory Exam: Clear to Ausculation Bilateral, NORMAL BREATHING PATTERN - Cardiovascular Exam Cardiovascular Exam: REGULAR RHYTHM, +S1, +S2. absent: Murmur Additional comments: Occasional atrial fibrillation - Neurological Exam Additional comments: Neurologically unchanged compared with yesterdays examination. GCS 4T. Assessment and Plan (1) Anoxic brain injury Assessment & Plan: Continue supportive care and obtain an MRI of the brain without contrast when stable to evaluate for edema, evidence of anoxic brain injury, or infarcts. Consider using neosynephrine instead of levophed to avoid cerebral vasoconstriction. Status: Acute
[2016-07-16] MEDS: PHENYLEPHRINE IV SCH (17:30)
[2016-07-16] MEDS: SODIUM CHLORIDE 0.9% IV SCH (17:30)
--- NOTE | 2016-07-16 17:56 | CP.PCM.PN ---
Subjective - Date & Time of Evaluation Date of Evaluation: 07/16/16 Time of Evaluation: 16:40 - Subjective Subjective: remains intubated. Objective - Vital Signs/Intake and Output Vital Signs (last 24 hours): Temp Pulse Resp BP Pulse Ox 99.4 F 74 19 99/51 L 100 07/16/16 15:50 07/16/16 16:56 07/16/16 15:50 07/16/16 16:56 07/16/16 15:50 Intake and Output: 07/16/16 07/16/16 06:59 18:59 Intake Total 1740 1231 Output Total 1999 Balance 1740 -769 - Medications Medications: Current Medications Acetaminophen (Tylenol 325mg Tab) 650 mg PO Q6 PRN PRN Reason: Pain, moderate (4-7) Last Admin: 07/12/16 09:38 Dose: 650 mg Acetaminophen (Tylenol 325mg Tab) 650 mg PO Q6 PRN PRN Reason: Fever >100.4 F Last Admin: 07/12/16 22:24 Dose: 650 mg Albuterol/Ipratropium (Duoneb 3 Mg/0.5 Mg (3 Ml) Ud) 3 ml INH RQ4 PRN PRN Reason: Shortness of Breath Allopurinol (Zyloprim) 100 mg PO DAILY [facility] Last Admin: 07/16/16 08:52 Dose: 100 mg Atorvastatin Calcium (Lipitor) 80 mg PO DAILY [facility] Last Admin: 07/16/16 08:52 Dose: 80 mg Bismuth Subsalicylate (Pepto-Bismol) 524 mg PO Q6H PRN PRN Reason: Diarrhea Carvedilol (Coreg) 12.5 mg PO BID [facility] Last Admin: 07/16/16 16:56 Dose: Not Given Dextrose (Dextrose 50% Inj) 0 ml IVP STAT PRN; Protocol PRN Reason: Hypoglycemia Protocol Ezetimibe (Zetia) 10 mg PO HS [facility] Last Admin: 07/15/16 22:51 Dose: 10 mg Ergocalciferol (Drisdol 50,000 Intl Units Cap) 1 cap PO QWK [facility] Gabapentin (Neurontin) 300 mg PO BID [facility] Last Admin: 07/16/16 16:18 Dose: 300 mg Glucagon (Glucagen Diagnostic Kit) 0 mg IM STAT PRN; Protocol PRN Reason: Hypoglycemia Protocol Heparin Sodium (Porcine) (Heparin) 5,000 units SC Q8 [facility] PRN Reason: Protocol Last Admin: 07/16/16 16:17 Dose: 5,000 units Piperacillin Sod/Tazobactam (Sod 2.25 gm/ Sodium Chloride) 100 mls @ 100 mls/ hr IVPB Q8 [facility] Last Admin: 07/16/16 16:16 Dose: 100 mls/hr Amiodarone HCl 900 mg/ (Dextrose) 518 mls @ 34.53 mls/hr IVPB .Q15H1M [facility]; 1 MG /MIN PRN Reason: Protocol Last Admin: 07/16/16 12:31 Dose: 34.53 mls/hr Vancomycin HCl 1 gm/ Sodium (Chloride) 250 mls @ 166.667 mls/hr IVPB Q48H [facility] Phenylephrine HCl 20 mg/ (Sodium Chloride) 502 mls @ 0 mls/hr IV .Q0M [facility]; Per Protocol PRN Reason: Protocol Insulin Detemir (Levemir) 10 units SC HS [facility] Insulin Human Regular (Humulin R) 0 units SC ACHS [facility] PRN Reason: Protocol Last Admin: 07/16/16 16:58 Dose: 10 units Sevelamer Carbonate (Renvela) 0.8 gm PO TID [facility] Last Admin: 07/16/16 17:35 Dose: 0.8 gm Sitagliptin Phosphate (Januvia) 25 mg PO DAILY [facility] Last Admin: 07/16/16 08:51 Dose: 25 mg Tamsulosin HCl (Flomax) 0.4 mg PO DAILY [facility] Last Admin: 07/16/16 08:51 Dose: 0.4 mg - Labs Labs: 07/16/16 04:45 07/16/16 04:45 PT 11.7 SECONDS (9.6-11.2) H 07/09/16 21:00 INR 1.13 (0.92-1.08) H 07/09/16 21:00 APTT 32.0 SECONDS (23.3-32.5) 07/10/16 05:35 - Constitutional Appears: Chronically Ill - Head Exam Head Exam: NORMAL INSPECTION - Eye Exam Eye Exam: Normal appearance - ENT Exam ENT Exam: Mucous Membranes Moist - Neck Exam Neck Exam: Full ROM - Respiratory Exam Respiratory Exam: Decreased Breath Sounds - Cardiovascular Exam Cardiovascular Exam: REGULAR RHYTHM - GI/Abdominal Exam GI & Abdominal Exam: Normal Bowel Sounds - Rectal Exam Rectal Exam: Deferred - Extremities Exam Extremities Exam: absent: Pedal Edema - Back Exam Back Exam: NORMAL INSPECTION - Neurological Exam Neurological Exam: Alert - Psychiatric Exam Psychiatric exam: Normal Affect - Skin Skin Exam: Normal Color Assessment and Plan (1) Aortic stenosis Assessment & Plan: moderate. will continue conservative therapy Status: Acute (2) Aspiration pneumonia Assessment & Plan: on antibiotics Status: Acute (3) Cardiac arrest Assessment & Plan: no arun chicasia Status: Acute (4) Paroxysmal atrial fibrillation Assessment & Plan: will maintain amiodarone. Status: Acute
--- NOTE | 2016-07-16 21:50 | CP.PCM.PN ---
Subjective - Date & Time of Evaluation Date of Evaluation: 07/16/16 Time of Evaluation: 13:00 - Subjective Subjective: SEEN ON RENAL F/U SEEN ON HD .. UF 2L INTUBATED ON PRESSORS ALL PREVIOUS EMR REVIEWED CASE D/W CAUL PULLER Objective - Vital Signs/Intake and Output Vital Signs (last 24 hours): Temp Pulse Resp BP Pulse Ox 99.7 F H 74 22 89/52 L 100 07/16/16 16:00 07/16/16 18:00 07/16/16 18:00 07/16/16 18:00 07/16/16 18:00 Intake and Output: 07/16/16 07/17/16 18:59 06:59 Intake Total 1657 Output Total 2000 Balance -343 - Medications Medications: Current Medications Acetaminophen (Tylenol 325mg Tab) 650 mg PO Q6 PRN PRN Reason: Pain, moderate (4-7) Last Admin: 07/12/16 09:38 Dose: 650 mg Acetaminophen (Tylenol 325mg Tab) 650 mg PO Q6 PRN PRN Reason: Fever >100.4 F Last Admin: 07/12/16 22:24 Dose: 650 mg Albuterol/Ipratropium (Duoneb 3 Mg/0.5 Mg (3 Ml) Ud) 3 ml INH RQ4 PRN PRN Reason: Shortness of Breath Allopurinol (Zyloprim) 100 mg PO DAILY [facility] Last Admin: 07/16/16 08:52 Dose: 100 mg Atorvastatin Calcium (Lipitor) 80 mg PO DAILY [facility] Last Admin: 07/16/16 08:52 Dose: 80 mg Bismuth Subsalicylate (Pepto-Bismol) 524 mg PO Q6H PRN PRN Reason: Diarrhea Carvedilol (Coreg) 12.5 mg PO BID [facility] Last Admin: 07/16/16 16:56 Dose: Not Given Dextrose (Dextrose 50% Inj) 0 ml IVP STAT PRN; Protocol PRN Reason: Hypoglycemia Protocol Ezetimibe (Zetia) 10 mg PO HS [facility] Last Admin: 07/16/16 21:36 Dose: 10 mg Ergocalciferol (Drisdol 50,000 Intl Units Cap) 1 cap PO QWK [facility] Gabapentin (Neurontin) 300 mg PO BID [facility] Last Admin: 07/16/16 16:18 Dose: 300 mg Glucagon (Glucagen Diagnostic Kit) 0 mg IM STAT PRN; Protocol PRN Reason: Hypoglycemia Protocol Heparin Sodium (Porcine) (Heparin) 5,000 units SC Q8 [facility] PRN Reason: Protocol Last Admin: 07/16/16 16:17 Dose: 5,000 units Piperacillin Sod/Tazobactam (Sod 2.25 gm/ Sodium Chloride) 100 mls @ 100 mls/ hr IVPB Q8 [facility] Last Admin: 07/16/16 16:16 Dose: 100 mls/hr Amiodarone HCl 900 mg/ (Dextrose) 518 mls @ 34.53 mls/hr IVPB .Q15H1M [facility]; 1 MG /MIN PRN Reason: Protocol Last Admin: 07/16/16 12:31 Dose: 34.53 mls/hr Vancomycin HCl 1 gm/ Sodium (Chloride) 250 mls @ 166.667 mls/hr IVPB Q48H [facility] Phenylephrine HCl 20 mg/ (Sodium Chloride) 502 mls @ 0 mls/hr IV .Q0M [facility]; Per Protocol PRN Reason: Protocol Last Admin: 07/16/16 17:30 Dose: 60 mcg/min, 90.36 mls/hr Insulin Detemir (Levemir) 10 units SC HS [facility] Last Admin: 07/16/16 21:42 Dose: 10 units Insulin Human Regular (Humulin R) 0 units SC ACHS [facility] PRN Reason: Protocol Last Admin: 07/16/16 21:41 Dose: 10 units Sevelamer Carbonate (Renvela) 0.8 gm PO TID [facility] Last Admin: 07/16/16 17:35 Dose: 0.8 gm Sitagliptin Phosphate (Januvia) 25 mg PO DAILY [facility] Last Admin: 07/16/16 08:51 Dose: 25 mg Tamsulosin HCl (Flomax) 0.4 mg PO DAILY [facility] Last Admin: 07/16/16 08:51 Dose: 0.4 mg - Labs Labs: 07/16/16 04:45 07/16/16 04:45 PT 11.7 SECONDS (9.6-11.2) H 07/09/16 21:00 INR 1.13 (0.92-1.08) H 07/09/16 21:00 APTT 32.0 SECONDS (23.3-32.5) 07/10/16 05:35 Assessment and Plan - Assessment and Plan (Free Text) Assessment: ESRD ON HD .. TOLERATED HD TOSAY WITH UF OF 2 L ANEMIA OF CKD .. H/H STABLE S/P ELECROLYTES ABNORMALITIES .. CORRECTED ON HD VDRF .. ON VENT ORRALY PROBABLE ASP PNA .. BACTERIA IN BLOOD .. ON IVAB PER DR TAM C/O CURRENT CARE C/O PRESENT MANAGEMENT
[2016-07-16] MEDS ORDERED: Insulin Detemir 100 Units/ml Inj SC SCH (22:00)
[2016-07-17 05:33] LABS: ABG ALLEN TEST YES; ABG MECHANICAL RATE 12; ARTERIAL BLOOD GAS HCO3 26.4 mmol/L (21-28); ARTERIAL BLOOD GAS MODE A/C; ARTERIAL BLOOD GAS O2 CAPACITY 13.4 mL/dL (16-24); ARTERIAL BLOOD GAS O2 CONTENT 13.3 ML/dL (15-23); ARTERIAL BLOOD GAS PH 7.37 (7.35-7.45); ARTERIAL BLOOD GAS PO2 116 mm/Hg (80-100); ARTERIAL BLOOD HGB O2 SAT 96.1 % (95.0-98.0); ATERIAL BLOOD GAS PEEP 5; CARBOXYHEMOGLOBIN 1.6 % (0.5-1.5); HHB 0.7 % (0.0-5.0); METHEMOGLOBIN 1.7 % (0.0-3.0)
[2016-07-17 05:47] LABS: HEMATOCRIT 29.4 % (35.0-51.0); MEAN CELL VOLUME 85.1 fl (80.0-94.0); MEAN CORPUSCULAR HEMOGLOBIN 26.5 pg (27.0-31.0); MEAN CORPUSCULAR HGB CONC 31.1 g/dL (33.0-37.0); RED CELL DISTRIBUTION WIDTH 18.2 % (11.5-14.5); WHITE BLOOD COUNT 20.4 K/uL (4.8-10.8)
[2016-07-17 06:04] LABS: ALB/GLOB RATIO 0.7 (1.0-2.1); CALCIUM 7.3 mg/dL (8.4-10.2); MAGNESIUM 2.2 MG/DL (1.6-2.3); POTASSIUM 4.3 MMOL/L (3.6-5.0); TOTAL PROTEIN 6.2 G/DL (6.3-8.2)
[2016-07-17 06:18] LABS: PARTIAL THROMBOPLASTIN TIME 34.8 SECONDS (23.3-32.5)
[2016-07-17] MEDS: Insulin Regular 100 units/ml SC SCH ×4 (07:30→22:05)
[2016-07-17] MEDS: Sevelamer Carb 0.8 gm/Packet PO SCH ×3 (08:56→16:36)
--- NOTE | 2016-07-17 09:15 | CP.PCM.PN ---
<Mary Britton - Last Filed: 07/17/16 09:13> Subjective - Date & Time of Evaluation Date of Evaluation: 07/17/16 Time of Evaluation: 09:14 - Subjective Subjective: evaluated with attending. no overnight events. pt intubated. eye movement, no extremity movement to command, no painful stimuli response. no ROS d/t lack of verbal response Objective - Vital Signs/Intake and Output Vital Signs (last 24 hours): Temp Pulse Resp BP Pulse Ox 100 F H 74 19 103/53 L 100 07/17/16 08:00 07/17/16 08:54 07/17/16 08:00 07/17/16 08:54 07/17/16 08:00 Intake and Output: 07/17/16 07/17/16 06:59 18:59 Intake Total 2585 Output Total 50 Balance 2535 - Medications Medications: Current Medications Acetaminophen (Tylenol 325mg Tab) 650 mg PO Q6 PRN PRN Reason: Pain, moderate (4-7) Last Admin: 07/12/16 09:38 Dose: 650 mg Acetaminophen (Tylenol 325mg Tab) 650 mg PO Q6 PRN PRN Reason: Fever >100.4 F Last Admin: 07/17/16 06:05 Dose: 650 mg Albuterol/Ipratropium (Duoneb 3 Mg/0.5 Mg (3 Ml) Ud) 3 ml INH RQ4 PRN PRN Reason: Shortness of Breath Allopurinol (Zyloprim) 100 mg PO DAILY [facility] Last Admin: 07/17/16 08:57 Dose: 100 mg Atorvastatin Calcium (Lipitor) 80 mg PO DAILY [facility] Last Admin: 07/17/16 08:56 Dose: 80 mg Bismuth Subsalicylate (Pepto-Bismol) 524 mg PO Q6H PRN PRN Reason: Diarrhea Carvedilol (Coreg) 12.5 mg PO BID [facility] Last Admin: 07/17/16 08:54 Dose: Not Given Dextrose (Dextrose 50% Inj) 0 ml IVP STAT PRN; Protocol PRN Reason: Hypoglycemia Protocol Ezetimibe (Zetia) 10 mg PO HS [facility] Last Admin: 07/16/16 21:36 Dose: 10 mg Ergocalciferol (Drisdol 50,000 Intl Units Cap) 1 cap PO QWK [facility] Gabapentin (Neurontin) 300 mg PO BID [facility] Last Admin: 07/17/16 08:56 Dose: 300 mg Glucagon (Glucagen Diagnostic Kit) 0 mg IM STAT PRN; Protocol PRN Reason: Hypoglycemia Protocol Heparin Sodium (Porcine) (Heparin) 5,000 units SC Q8 [facility] PRN Reason: Protocol Last Admin: 07/17/16 08:55 Dose: 5,000 units Piperacillin Sod/Tazobactam (Sod 2.25 gm/ Sodium Chloride) 100 mls @ 100 mls/ hr IVPB Q8 [facility] Last Admin: 07/17/16 08:57 Dose: 100 mls/hr Amiodarone HCl 900 mg/ (Dextrose) 518 mls @ 34.53 mls/hr IVPB .Q15H1M [facility]; 1 MG /MIN PRN Reason: Protocol Last Admin: 07/16/16 12:31 Dose: 34.53 mls/hr Vancomycin HCl 1 gm/ Sodium (Chloride) 250 mls @ 166.667 mls/hr IVPB Q48H [facility] Phenylephrine HCl 20 mg/ (Sodium Chloride) 502 mls @ 0 mls/hr IV .Q0M [facility]; Per Protocol PRN Reason: Protocol Last Titration: 07/17/16 01:30 Dose: 70 mcg/min, 105.42 mls/hr Insulin Detemir (Levemir) 10 units SC HS [facility] Last Admin: 07/16/16 21:42 Dose: 10 units Insulin Human Regular (Humulin R) 0 units SC ACHS [facility] PRN Reason: Protocol Last Admin: 07/17/16 07:30 Dose: 10 units Sevelamer Carbonate (Renvela) 0.8 gm PO TID [facility] Last Admin: 07/17/16 08:56 Dose: 0.8 gm Sitagliptin Phosphate (Januvia) 25 mg PO DAILY [facility] Last Admin: 07/17/16 08:56 Dose: 25 mg Tamsulosin HCl (Flomax) 0.4 mg PO DAILY [facility] Last Admin: 07/17/16 08:55 Dose: 0.4 mg - Labs Labs: 07/17/16 04:35 07/17/16 04:20 PT 12.5 SECONDS (9.6-11.2) H 07/17/16 04:35 INR 1.20 (0.92-1.08) H 07/17/16 04:35 APTT 34.8 SECONDS (23.3-32.5) H 07/17/16 04:35 - Constitutional Appears: No Acute Distress - Head Exam Head Exam: NORMAL INSPECTION - Neck Exam Neck Exam: Normal Inspection - Respiratory Exam Respiratory Exam: Clear to Ausculation Bilateral Additional comments: intubated - Cardiovascular Exam Cardiovascular Exam: Irregular Rhythm - GI/Abdominal Exam GI & Abdominal Exam: Soft - Extremities Exam Extremities Exam: Pedal Edema Additional comments: anasarca UE - Neurological Exam Neurological Exam: absent: Alert, Oriented x3 Additional comments: GCS 5, E4V(T)M1 - Skin Skin Exam: Dry Assessment and Plan - Assessment and Plan (Free Text) Assessment: 80yo M with PMHx HTN, diabetes, prostate BPH and CKD admitted for acute on chronic kidney injury, cellulitis. Completed HD 07/16/16, removed 2L. bacteremia -2/2 cellulitis, PNA, or other source. h/o cath placement -blood cx: S anginosus/constellatus -leukocytosis, febrile 100.8 F -ID on board, appreciate input -Vanc/Zosyn -pressors aspiration PNA -CXR 07/17/16: no interval change (my interp) -ID on board, appreciate input -intubated PS 12/5/50% -Vanc/Zosyn pAfib -Cardio on board, appreciate input -coreg -amiodarone acute on CKD -emergent HD. prior HD 07/16/16 -Nephro on board, appreciate input -Renagel cellulitis -Vanc/Zosyn -ID on board, appreciate input -podiatry on board, appreciate input anoxic brain injury -GCS 5, E4V(T)M1 -2/2 renal failure, sepsis, or cardiorenal syndrome -CT head no acute change -neuro on board, appreciate input -intubated PS 12/5/50% anasarca -low albumin -monitor -HD -Nephro on board, appreciate input HTN -coreg HLD -statin -zetia DM -held linagliptin, pioglitazone -januvia -SSI -accuchecks DVT ppx -heparin <Tang Solorio K - Last Filed: 07/18/16 15:54> Objective - Vital Signs/Intake and Output Vital Signs (last 24 hours): Temp Pulse Resp BP Pulse Ox 97.7 F 85 17 103/61 100 07/18/16 12:23 07/18/16 15:00 07/18/16 15:00 07/18/16 15:00 07/18/16 15:00 Intake and Output: 07/18/16 07/18/16 06:59 18:59 Intake Total 1440 1032.0 Balance 1440 1032.0 - Medications Medications: Current Medications Acetaminophen (Tylenol 325mg Tab) 650 mg PO Q6 PRN PRN Reason: Pain, moderate (4-7) Last Admin: 07/12/16 09:38 Dose: 650 mg Acetaminophen (Tylenol 325mg Tab) 650 mg PO Q6 PRN PRN Reason: Fever >100.4 F Last Admin: 07/18/16 00:21 Dose: 650 mg Albuterol/Ipratropium (Duoneb 3 Mg/0.5 Mg (3 Ml) Ud) 3 ml INH RQ4 PRN PRN Reason: Shortness of Breath Last Admin: 07/17/16 19:14 Dose: 3 ml Allopurinol (Zyloprim) 100 mg PO DAILY [facility] Last Admin: 07/18/16 11:58 Dose: 100 mg Atorvastatin Calcium (Lipitor) 80 mg PO DAILY [facility] Last Admin: 07/18/16 11:56 Dose: 80 mg Bismuth Subsalicylate (Pepto-Bismol) 524 mg PO Q6H PRN PRN Reason: Diarrhea Carvedilol (Coreg) 12.5 mg PO BID [facility] Last Admin: 07/18/16 11:55 Dose: Not Given Dextrose (Dextrose 50% Inj) 0 ml IVP STAT PRN; Protocol PRN Reason: Hypoglycemia Protocol Ezetimibe (Zetia) 10 mg PO HS [facility] Last Admin: 07/17/16 22:06 Dose: 10 mg Ergocalciferol (Drisdol 50,000 Intl Units Cap) 1 cap PO QWK [facility] Gabapentin (Neurontin) 300 mg PO BID [facility] Last Admin: 07/18/16 11:56 Dose: Not Given Glucagon (Glucagen Diagnostic Kit) 0 mg IM STAT PRN; Protocol PRN Reason: Hypoglycemia Protocol Piperacillin Sod/Tazobactam (Sod 2.25 gm/ Sodium Chloride) 100 mls @ 100 mls/ hr IVPB Q8 [facility] Last Admin: 07/18/16 11:57 Dose: 100 mls/hr Amiodarone HCl 900 mg/ (Dextrose) 518 mls @ 34.53 mls/hr IVPB .Q15H1M [facility]; 1 MG /MIN PRN Reason: Protocol Last Admin: 07/16/16 12:31 Dose: 34.53 mls/hr Phenylephrine HCl 20 mg/ (Sodium Chloride) 502 mls @ 0 mls/hr IV .Q0M [facility]; Per Protocol PRN Reason: Protocol Last Admin: 07/18/16 14:13 Dose: 60 mcg/min, 90.36 mls/hr Vancomycin HCl 1 gm/ Sodium (Chloride) 250 mls @ 166.667 mls/hr IVPB Q72H [facility] Insulin Detemir (Levemir) 25 units SC HS [facility] Last Admin: 07/17/16 22:06 Dose: 25 units Insulin Human Regular (Humulin R) 0 units SC ACHS [facility] PRN Reason: Protocol Last Admin: 07/18/16 12:11 Dose: 4 units Sevelamer Carbonate (Renvela) 0.8 gm PO TID [facility] Last Admin: 07/18/16 12:00 Dose: 0.8 gm Sitagliptin Phosphate (Januvia) 25 mg PO DAILY [facility] Last Admin: 07/18/16 11:56 Dose: 25 mg Tamsulosin HCl (Flomax) 0.4 mg PO DAILY [facility] Last Admin: 07/18/16 11:55 Dose: 0.4 mg - Labs Labs: 07/18/16 04:20 07/18/16 04:20 PT 12.5 SECONDS (9.6-11.2) H 07/17/16 04:35 INR 1.20 (0.92-1.08) H 07/17/16 04:35 APTT 34.8 SECONDS (23.3-32.5) H 07/17/16 04:35 Assessment and Plan - Assessment and Plan (Free Text) Assessment: Patient seen and examined with residents in rounds. Case, condition, investigative work up and plan discussed in detail. Agree with residents progress note. Plan: As ordered. (Tang Solorio MD)
--- NOTE | 2016-07-17 14:05 | CP.CCUPN ---
<Cee Garcia - Last Filed: 07/17/16 14:18> CCU Subjective - Physician Review Subjective (Free Text): 07/17/16 14:08 Patient seen and examined at bedside and discussed with attending during morning rounds. He remains non-verbal on mechanical ventilation. Pupils are fixed, with corneal reflex and mild gag reflex with suction. Patient occasionally blinks eyes spontaneously but does not withdraw to painful stimuli and is not moving extremities. He remains afebrile, on phenylephrine pressors at 80mcg. Amiodarone drip held this AM due to HR in low 70s. No further episodes of afib noted since yesterday. CCU Objective - Vital Signs / Intake & Output Vital Signs (Last 4 hours): Vital Signs Temp Pulse Resp BP Pulse Ox 07/17/16 12:00 99.6 F 72 18 96/60 L 100 07/17/16 10:00 74 15 95/53 L 100 Intake and Output (Last 8hrs): Intake & Output 07/16/16 07/17/16 07/17/16 22:59 06:59 14:59 Intake Total 1591 1939 820 Output Total 2000 50 Balance -409 1889 820 Intake: IV 677 1399 Intake, Piggyback 474 100 600 Tube Feeding 440 440 220 Output: Urine 50 Urine, Voided 50 Ultrafiltrate 2000 Other: # Voids Urine, Voided 1 # Bowel Movements 1 1 - Physical Exam Head: Positive for: Atraumatic, Normocephalic Pupils: Positive for: Non-Reactive Extroacular Muscles: Negative for: EOMI Conjunctiva: Negative for: Injected, Icteric Mouth: Positive for: Dry Neck: Positive for: Other (Right IJ HD catheter site clean with no signs of erythema.) Respiratory/Chest: Positive for: Rhonchi, Tachypneic, Other (Patient on mechanical ventilation. B/L air entry present with occasional expiratory rhonchii. ). Negative for: Wheezes Cardiovascular: Positive for: Regular Rate and Rhythm. Negative for: Murmurs Abdomen: Positive for: Normal Bowel Sounds. Negative for: Tenderness, Distention Genitourinary Male: Positive for: Other (Right groin TLC site clean, dry, with no surrounding erythema. ) Upper Extremity: Positive for: Edema (B/L upper extremity edema Lt>Rt) Lower Extremity: Positive for: Edema (2+), Other (Lower extremity xeroform/YADIRA bandaging in place to upper calf. 2+ pitting edema noted above level of dressings.) Neurological: Positive for: Other (Unresponsive to verbal or painful stimuli. Pupils fixed. Corneal reflex present with occasional spontaneous blink. Mild gag reflex. Not moving extremities. ). Negative for: CN II-XII Intact Psychiatric: Negative for: Alert - Medications Active Medications: Active Medications Generic Name Dose Route Start Last Admin Trade Name Freq PRN Reason Stop Dose Admin Acetaminophen 650 mg 07/10/16 02:12 07/12/16 09:38 Tylenol 325mg Tab PO 650 mg Q6 PRN Administration Pain, moderate (4-7) Acetaminophen 650 mg 07/12/16 22:03 07/17/16 06:05 Tylenol 325mg Tab PO 650 mg Q6 PRN Administration Fever >100.4 F Albuterol/Ipratropium 3 ml 07/14/16 11:48 Duoneb 3 Mg/0.5 Mg (3 Ml) Ud INH RQ4 PRN Shortness of Breath Allopurinol 100 mg 07/10/16 09:00 07/17/16 08:57 Zyloprim PO 100 mg DAILY MARIA GUADALUPE Administration Atorvastatin Calcium 80 mg 07/10/16 09:00 07/17/16 08:56 Lipitor PO 80 mg DAILY MARIA GUADALUPE Administration Bismuth Subsalicylate 524 mg 07/11/16 17:33 Pepto-Bismol PO Q6H PRN Diarrhea Carvedilol 12.5 mg 07/10/16 09:00 07/17/16 08:54 Coreg PO Not Given BID MARIA GUADALUPE Dextrose 0 ml 07/10/16 15:13 Dextrose 50% Inj IVP STAT PRN Hypoglycemia Protocol Protocol Ezetimibe 10 mg 07/10/16 22:00 07/16/16 21:36 Zetia PO 10 mg HS MARIA GUADALUPE Administration Ergocalciferol 1 cap 07/10/16 02:30 Drisdol 50,000 Intl Units Cap PO QWK MARIA GUADALUPE Gabapentin 300 mg 07/10/16 09:00 07/17/16 08:56 Neurontin PO 300 mg BID MARIA GUADALUPE Administration Glucagon 0 mg 07/10/16 15:13 Glucagen Diagnostic Kit IM STAT PRN Hypoglycemia Protocol Protocol Heparin Sodium (Porcine) 5,000 units 07/10/16 02:15 07/17/16 08:55 Heparin SC 5,000 units Q8 MARIA GUADALUPE Administration Protocol Piperacillin Sod/Tazobactam 100 mls @ 100 mls/hr 07/16/16 11:15 07/17/16 08: 57 Sod 2.25 gm/ Sodium Chloride IVPB 100 mls/hr Q8 MARIA GUADALUPE Administration Amiodarone HCl 900 mg/ 518 mls @ 34.53 mls/hr 07/16/16 12:00 07/16/16 12:31 Dextrose IVPB 34.53 mls/hr .Q15H1M [facility] GUADALUPE Administration Protocol 1 MG/MIN Vancomycin HCl 1 gm/ Sodium 250 mls @ 166.667 mls/hr 07/17/16 14:00 07/17/16 13:29 Chloride IVPB 166.667 mls/hr Q48H [facility] GUADALU[facility] Administration Phenylephrine HCl 20 mg/ 502 mls @ 0 mls/hr 07/16/16 17:52 07/17/16 01:30 Sodium Chloride IV 70 mcg/min .Q0M MARIA GUADALUPE 105.42 mls/hr Protocol Titration Per Protocol Insulin Detemir 10 units 07/16/16 22:00 07/16/16 21:42 Levemir SC 10 units HS MARIA GUADALUPE Administration Insulin Human Regular 0 units 07/16/16 10:34 07/17/16 11:58 Humulin R SC 10 units ACHS [facility]IA GUADALUPE Administration Protocol Sevelamer Carbonate 0.8 gm 07/16/16 09:30 07/17/16 12:06 Renvela PO 0.8 gm TID [facility] GUADALU[facility] Administration Sitagliptin Phosphate 25 mg 07/10/16 09:00 07/17/16 08:56 Januvia PO 25 mg DAILY [facility] GUADALU[facility] Administration Tamsulosin HCl 0.4 mg 07/10/16 09:00 07/17/16 08:55 Flomax PO 0.4 mg DAILY [facility] GUADALU[facility] Administration - Patient Studies Lab Studies: Microbiology Studies 07/15/16 17:52 Gram Stain - Final Trachasp Sputum Culture - Final Yeast Species 07/14/16 10:00 Blood Culture - Preliminary Blood NO GROWTH AFTER 3 DAYS 07/14/16 21:57 MRSA Culture (Admit) - Final Naris MRSA NOT DETECTED Lab Studies 07/17/16 07/17/16 07/17/16 Range/Units 08:33 05:32 05:16 WBC (4.8-10.8) K/uL RBC (4.40-5.90) Mil/uL Hgb (12.0-18.0) g/dL Hct (35.0-51.0) % MCV (80.0-94.0) fl MCH (27.0-31.0) pg MCHC (33.0-37.0) g/dL RDW (11.5-14.5) % Plt Count (130-400) K/uL PT (9.6-11.2) SECONDS INR (0.92-1.08) APTT (23.3-32.5) SECONDS pCO2 48 H (35-45) mm/Hg pO2 116 H (80-100) mm/Hg HCO3 26.4 (21-28) mmol/L ABG pH 7.37 (7.35-7.45) ABG Total CO2 29.2 H (22-28) mmol/L ABG O2 Saturation 99.3 H (95-98) % ABG O2 Content 13.3 L (15-23) ML/dL ABG Base Excess 1.9 (-2.0-3.0) mmol/L ABG Hemoglobin 9.7 L (11.7-17.4) g/dL ABG Carboxyhemoglobin 1.6 H (0.5-1.5) % POC ABG HHb (Measured) 0.7 (0.0-5.0) % ABG Methemoglobin 1.7 (0.0-3.0) % ABG O2 Capacity 13.4 L (16-24) mL/dL Mason Test Yes A-a O2 Difference 181.0 mm/Hg Hgb O2 Saturation 96.1 (95.0-98.0) % Vent Mode A/c Mechanical Rate 12 FiO2 50.0 % Tidal Volume 500 PEEP 5 Sodium (132-148) mmol/l Potassium (3.6-5.0) MMOL/L Chloride (98-107) mmol/L Carbon Dioxide (22-30) mmol/L Anion Gap (10-20) BUN (9-20) mg/dl Creatinine (0.8-1.5) mg/dL Est GFR ( Amer) Est GFR (Non-Af Amer) POC Glucose (mg/dL) 428 H* 426 H* (65-110) mg/dL Random Glucose (75-110) mg/dL Calcium (8.4-10.2) mg/dL Phosphorus (2.5-4.5) mg/dl Magnesium (1.6-2.3) MG/DL Total Bilirubin (0.2-1.3) mg/dl AST (17-59) U/L ALT (21-72) U/L Alkaline Phosphatase (38-126) U/L Total Protein (6.3-8.2) G/DL Albumin (3.5-5.0) g/dL Globulin (2.2-3.9) gm/dL Albumin/Globulin Ratio (1.0-2.1) Random Vancomycin ug/mL 07/17/16 07/17/16 07/17/16 Range/Units 04:35 04:35 04:35 WBC 20.4 H (4.8-10.8) K/uL RBC 3.45 L (4.40-5.90) Mil/uL Hgb 9.1 L (12.0-18.0) g/dL Hct 29.4 L (35.0-51.0) % MCV 85.1 (80.0-94.0) fl MCH 26.5 L (27.0-31.0) pg MCHC 31.1 L (33.0-37.0) g/dL RDW 18.2 H (11.5-14.5) % Plt Count 225 (130-400) K/uL PT 12.5 H (9.6-11.2) SECONDS INR 1.20 H (0.92-1.08) APTT 34.8 H (23.3-32.5) SECONDS pCO2 (35-45) mm/Hg pO2 (80-100) mm/Hg HCO3 (21-28) mmol/L ABG pH (7.35-7.45) ABG Total CO2 (22-28) mmol/L ABG O2 Saturation (95-98) % ABG O2 Content (15-23) ML/dL ABG Base Excess (-2.0-3.0) mmol/L ABG Hemoglobin (11.7-17.4) g/dL ABG Carboxyhemoglobin (0.5-1.5) % POC ABG HHb (Measured) (0.0-5.0) % ABG Methemoglobin (0.0-3.0) % ABG O2 Capacity (16-24) mL/dL Mason Test A-a O2 Difference mm/Hg Hgb O2 Saturation (95.0-98.0) % Vent Mode Mechanical Rate FiO2 % Tidal Volume PEEP Sodium (132-148) mmol/l Potassium (3.6-5.0) MMOL/L Chloride (98-107) mmol/L Carbon Dioxide (22-30) mmol/L Anion Gap (10-20) BUN (9-20) mg/dl Creatinine (0.8-1.5) mg/dL Est GFR ( Amer) Est GFR (Non-Af Amer) POC Glucose (mg/dL) (65-110) mg/dL Random Glucose (75-110) mg/dL Calcium (8.4-10.2) mg/dL Phosphorus (2.5-4.5) mg/dl Magnesium (1.6-2.3) MG/DL Total Bilirubin (0.2-1.3) mg/dl AST (17-59) U/L ALT (21-72) U/L Alkaline Phosphatase (38-126) U/L Total Protein (6.3-8.2) G/DL Albumin (3.5-5.0) g/dL Globulin (2.2-3.9) gm/dL Albumin/Globulin Ratio (1.0-2.1) Random Vancomycin 23.5 ug/mL 07/17/16 07/16/16 07/16/16 Range/Units 04:20 21:40 16:37 WBC (4.8-10.8) K/uL RBC (4.40-5.90) Mil/uL Hgb (12.0-18.0) g/dL Hct (35.0-51.0) % MCV (80.0-94.0) fl MCH (27.0-31.0) pg MCHC (33.0-37.0) g/dL RDW (11.5-14.5) % Plt Count (130-400) K/uL PT (9.6-11.2) SECONDS INR (0.92-1.08) APTT (23.3-32.5) SECONDS pCO2 (35-45) mm/Hg pO2 (80-100) mm/Hg HCO3 (21-28) mmol/L ABG pH (7.35-7.45) ABG Total CO2 (22-28) mmol/L ABG O2 Saturation (95-98) % ABG O2 Content (15-23) ML/dL ABG Base Excess (-2.0-3.0) mmol/L ABG Hemoglobin (11.7-17.4) g/dL ABG Carboxyhemoglobin (0.5-1.5) % POC ABG HHb (Measured) (0.0-5.0) % ABG Methemoglobin (0.0-3.0) % ABG O2 Capacity (16-24) mL/dL Mason Test A-a O2 Difference mm/Hg Hgb O2 Saturation (95.0-98.0) % Vent Mode Mechanical Rate FiO2 % Tidal Volume PEEP Sodium 133 (132-148) mmol/l Potassium 4.3 (3.6-5.0) MMOL/L Chloride 95 L (98-107) mmol/L Carbon Dioxide 27 (22-30) mmol/L Anion Gap 15 (10-20) BUN 69 H (9-20) mg/dl Creatinine 5.2 H (0.8-1.5) mg/dL Est GFR ( Amer) 13 Est GFR (Non-Af Amer) 11 POC Glucose (mg/dL) 451 H* 472 H* (65-110) mg/dL Random Glucose 461 H* (75-110) mg/dL Calcium 7.3 L (8.4-10.2) mg/dL Phosphorus 4.0 (2.5-4.5) mg/dl Magnesium 2.2 (1.6-2.3) MG/DL Total Bilirubin 1.0 (0.2-1.3) mg/dl AST 44 (17-59) U/L ALT 28 (21-72) U/L Alkaline Phosphatase 391 H (38-126) U/L Total Protein 6.2 L (6.3-8.2) G/DL Albumin 2.6 L (3.5-5.0) g/dL Globulin 3.6 (2.2-3.9) gm/dL Albumin/Globulin Ratio 0.7 L (1.0-2.1) Random Vancomycin ug/mL Laboratory Results - last 24 hr 07/16/16 07/16/16 07/17/16 16:37 21:40 04:20 WBC RBC Hgb Hct MCV MCH MCHC RDW Plt Count PT INR APTT pCO2 pO2 HCO3 ABG pH ABG Total CO2 ABG O2 Saturation ABG O2 Content ABG Base Excess ABG Hemoglobin ABG Carboxyhemoglobin POC ABG HHb (Measured) ABG Methemoglobin ABG O2 Capacity Mason Test A-a O2 Difference Hgb O2 Saturation Vent Mode Mechanical Rate FiO2 Tidal Volume PEEP Sodium 133 Potassium 4.3 Chloride 95 L Carbon Dioxide 27 Anion Gap 15 BUN 69 H Creatinine 5.2 H Est GFR ( Amer) 13 Est GFR (Non-Af Amer) 11 POC Glucose (mg/dL) 472 H* 451 H* Random Glucose 461 H* Calcium 7.3 L Phosphorus 4.0 Magnesium 2.2 Total Bilirubin 1.0 AST 44 ALT 28 Alkaline Phosphatase 391 H Total Protein 6.2 L Albumin 2.6 L Globulin 3.6 Albumin/Globulin Ratio 0.7 L Random Vancomycin 07/17/16 07/17/16 07/17/16 04:35 04:35 04:35 WBC 20.4 H RBC 3.45 L Hgb 9.1 L Hct 29.4 L MCV 85.1 MCH 26.5 L MCHC 31.1 L RDW 18.2 H Plt Count 225 PT 12.5 H INR 1.20 H APTT 34.8 H pCO2 pO2 HCO3 ABG pH ABG Total CO2 ABG O2 Saturation ABG O2 Content ABG Base Excess ABG Hemoglobin ABG Carboxyhemoglobin POC ABG HHb (Measured) ABG Methemoglobin ABG O2 Capacity Mason Test A-a O2 Difference Hgb O2 Saturation Vent Mode Mechanical Rate FiO2 Tidal Volume PEEP Sodium Potassium Chloride Carbon Dioxide Anion Gap BUN Creatinine Est GFR ( Amer) Est GFR (Non-Af Amer) POC Glucose (mg/dL) Random Glucose Calcium Phosphorus Magnesium Total Bilirubin AST ALT Alkaline Phosphatase Total Protein Albumin Globulin Albumin/Globulin Ratio Random Vancomycin 23.5 07/17/16 07/17/16 07/17/16 05:16 05:32 08:33 WBC RBC Hgb Hct MCV MCH MCHC RDW Plt Count PT INR APTT pCO2 48 H pO2 116 H HCO3 26.4 ABG pH 7.37 ABG Total CO2 29.2 H ABG O2 Saturation 99.3 H ABG O2 Content 13.3 L ABG Base Excess 1.9 ABG Hemoglobin 9.7 L ABG Carboxyhemoglobin 1.6 H POC ABG HHb (Measured) 0.7 ABG Methemoglobin 1.7 ABG O2 Capacity 13.4 L Mason Test Yes A-a O2 Difference 181.0 Hgb O2 Saturation 96.1 Vent Mode A/c Mechanical Rate 12 FiO2 50.0 Tidal Volume 500 PEEP 5 Sodium Potassium Chloride Carbon Dioxide Anion Gap BUN Creatinine Est GFR ( Amer) Est GFR (Non-Af Amer) POC Glucose (mg/dL) 426 H* 428 H* Random Glucose Calcium Phosphorus Magnesium Total Bilirubin AST ALT Alkaline Phosphatase Total Protein Albumin Globulin Albumin/Globulin Ratio Random Vancomycin Fingerstick Blood Sugar Results: 428 Review of Systems - Review of Systems Systems not reviewed;Unavailable: Intubated Assessment/Plan - Assessment and Plan (Free Text) Assessment: 80 y/o with PMH including HTN, DM2, Hyperlipidemia, Morbid obesity, CKD Stage IV presented to [facility] [place] for 2 weeks of progressive abdominal pain, lower extremity erythema and generalized malaise. He was subsequently admitted for lower extremity cellulitis, possible cholecystitis and acute on chronic CKD associated with multiple electrolyte abnormalities. During admission, patient had signs of lethargy and was sent for CT Head and Chest, during which an [employer] TRA[employer] MECH[employer]IC was called. [employer]CH[employer]IC converted to code blue for cardiac/respiratory arrest. Patient was coded for 10 minutes and was intubated, with return of spontaneous circulation. Patient was then transferred to ICU. Current ICU day 4. Plan: Acute Respiratory Failure -Etiology possibly secondary to aspiration pneumonia? -Patient intubated on 07/14/16 due to cardiac/respiratory arrest -Currently on mechanical ventilation, day 4 -Vent settings 12/500/5/50% -O2 sat has been stable at 100% -Will wean as tolerated Sepsis, with Strep Anginosus Bacteremia -Etiology secondary to GI vs Skin vs Aspiration pneumonia -Patient remains afebrile. WBC: 20.4 -Blood culture from 07/09 detected strep anginosus sensitive to Vancomycin -Repeat blood cultures from 07/09 and 07/14 reveal no growth -Lactic acid: 1.5 -Transthoracic echo from 07/10 read within normal limits -Will consider repeat echo after discussing with cardiology -Currently on phenylephrine drip @80mcg. Will consider decreasing pressors as tolerated -Vancomycin 1gm IV daily (07/13-07/15). Today, AM vanco level 23.5, 4 hours prior to scheduled dose. Will hold today and resume tomorrow with dialysis. -Zosyn 2.25 gm IV Q8h (Started 07/11, day 7) -Will obtain Vancomycin trough level and adjust dosing as necessary Acute on Chronic Kidney Failure -Has been following with nephrology, Dr Morse as outpatient -BUN/Cr: 69/5.2 -Last dialyzed 07/16/16. Next scheduled dialysis tomorrow. Paroxysmal Atrial Fibrillation -Had episode of Afib during dialysis which resolved with amiodarone drip. Drip discontinued this morning due to HR in the low 70s range and normal rhythm -Rate controlled. Sinus rhythm today. -Has been switched from levophed to phenylephrine to prevent any further paroxysms -Cardiology consulted Anoxic Brain Injury -GCS 2, E(C) V(1T) M1 -Secondary to cardiac arrest with hypoxemia -Absent pupillary response -Continue frequent neuro checks -Neurology consulted Cellulitis of B/L Lower Extremity -Related to b/l venous stasis dermatitis -Dressings with xeroform and YADIRA banages -Receiving IV antibiotics as detailed above -Podiatry and Infectious Disease following DVT Prophylaxis -Heparin 5,000units SC Q8H <Vito Mckeon - Last Filed: 07/17/16 15:51> CCU Subjective - Physician Review Subjective (Free Text): Attestation: Patient seen and examined at the bedside with Resident Dr. Sung Garcia; and I agree with his outline of plans and management documented below as discussed on AM rounds reflecting my review of all applicable clinical data, and participation in the care of the patient throughout the day in ICU; today, July 17, 2016.
[2016-07-17] MEDS ORDERED: Insulin Detemir 100 Units/ml Inj SC SCH (15:31)
--- NOTE | 2016-07-17 15:36 | CP.PCM.PN ---
Subjective - Date & Time of Evaluation Date of Evaluation: 07/17/16 Time of Evaluation: 15:31 - Subjective Subjective: Mr. Montalvo was seen and examined today at bedside in the ICU. He was intubated, off sedation and on pressors. There were no acute events overnight. Objective - Vital Signs/Intake and Output Vital Signs (last 24 hours): Temp Pulse Resp BP Pulse Ox 99.6 F 73 16 98/54 L 100 07/17/16 12:00 07/17/16 14:00 07/17/16 14:00 07/17/16 14:00 07/17/16 14:00 Intake and Output: 07/17/16 07/17/16 06:59 18:59 Intake Total 2585 1770 Output Total 50 Balance 2535 1770 - Medications Medications: Current Medications Acetaminophen (Tylenol 325mg Tab) 650 mg PO Q6 PRN PRN Reason: Pain, moderate (4-7) Last Admin: 07/12/16 09:38 Dose: 650 mg Acetaminophen (Tylenol 325mg Tab) 650 mg PO Q6 PRN PRN Reason: Fever >100.4 F Last Admin: 07/17/16 06:05 Dose: 650 mg Albuterol/Ipratropium (Duoneb 3 Mg/0.5 Mg (3 Ml) Ud) 3 ml INH RQ4 PRN PRN Reason: Shortness of Breath Allopurinol (Zyloprim) 100 mg PO DAILY COUNTS INCLUDE 234 BEDS AT [facility] Last Admin: 07/17/16 08:57 Dose: 100 mg Atorvastatin Calcium (Lipitor) 80 mg PO DAILY COUNTS INCLUDE 234 BEDS AT THE [facility] Last Admin: 07/17/16 08:56 Dose: 80 mg Bismuth Subsalicylate (Pepto-Bismol) 524 mg PO Q6H PRN PRN Reason: Diarrhea Carvedilol (Coreg) 12.5 mg PO BID COUNTS INCLUDE 234 BEDS AT [facility] Last Admin: 07/17/16 08:54 Dose: Not Given Dextrose (Dextrose 50% Inj) 0 ml IVP STAT PRN; Protocol PRN Reason: Hypoglycemia Protocol Ezetimibe (Zetia) 10 mg PO HS COUNTS INCLUDE 234 BEDS AT [facility] Last Admin: 07/16/16 21:36 Dose: 10 mg Ergocalciferol (Drisdol 50,000 Intl Units Cap) 1 cap PO QWK COUNTS INCLUDE 234 BEDS AT THE [facility] Gabapentin (Neurontin) 300 mg PO BID COUNTS INCLUDE 234 BEDS AT THE [facility] Last Admin: 07/17/16 08:56 Dose: 300 mg Glucagon (Glucagen Diagnostic Kit) 0 mg IM STAT PRN; Protocol PRN Reason: Hypoglycemia Protocol Heparin Sodium (Porcine) (Heparin) 5,000 units SC Q8 [facility] GU[facility] PRN Reason: Protocol Last Admin: 07/17/16 08:55 Dose: 5,000 units Piperacillin Sod/Tazobactam (Sod 2.25 gm/ Sodium Chloride) 100 mls @ 100 mls/ hr IVPB Q8 [facility] GUADALUPE Last Admin: 07/17/16 08:57 Dose: 100 mls/hr Amiodarone HCl 900 mg/ (Dextrose) 518 mls @ 34.53 mls/hr IVPB .Q15H1M MARIA GUADALUPE; 1 MG /MIN PRN Reason: Protocol Last Admin: 07/16/16 12:31 Dose: 34.53 mls/hr Vancomycin HCl 1 gm/ Sodium (Chloride) 250 mls @ 166.667 mls/hr IVPB Q48H [facility] GUADALUPE Last Admin: 07/17/16 13:29 Dose: 166.667 mls/hr Phenylephrine HCl 20 mg/ (Sodium Chloride) 502 mls @ 0 mls/hr IV .Q0M MARIA GUADALUPE; Per Protocol PRN Reason: Protocol Last Titration: 07/17/16 01:30 Dose: 70 mcg/min, 105.42 mls/hr Insulin Detemir (Levemir) 10 units SC HS [facility] GUADALUPE Last Admin: 07/16/16 21:42 Dose: 10 units Insulin Human Regular (Humulin R) 0 units SC ACHS [facility] GUADALUPE PRN Reason: Protocol Last Admin: 07/17/16 11:58 Dose: 10 units Sevelamer Carbonate (Renvela) 0.8 gm PO TID [facility]IA GUADALUPE Last Admin: 07/17/16 12:06 Dose: 0.8 gm Sitagliptin Phosphate (Januvia) 25 mg PO DAILY [facility] GUADALU[facility] Last Admin: 07/17/16 08:56 Dose: 25 mg Tamsulosin HCl (Flomax) 0.4 mg PO DAILY [facility] GUADALU[facility] Last Admin: 07/17/16 08:55 Dose: 0.4 mg - Labs Labs: 07/17/16 04:35 07/17/16 04:20 PT 12.5 SECONDS (9.6-11.2) H 07/17/16 04:35 INR 1.20 (0.92-1.08) H 07/17/16 04:35 APTT 34.8 SECONDS (23.3-32.5) H 07/17/16 04:35 - Constitutional Appears: Chronically Ill - Neurological Exam Additional comments: Opens eyes to voice, but does not follow commands. Essentially neurologically unchanged compared with yesterday's examination. GCS= 5T Assessment and Plan (1) Anoxic brain injury Assessment & Plan: No significant improvement after 72 hours from brain injury. Poor prognosis. An EEG is recommended to rule out subclinical status epilepticus. Status: Acute
[2016-07-17] MEDS ORDERED: Insulin Regular 100 units/ml IV STA (17:02)
--- NOTE | 2016-07-17 17:04 | RAD ---
HISTORY: Intubated. Portable study 08:00. COMPARISON: July 16, 2016. 04:45. FINDINGS: LUNGS: Stable consolidative changes primarily right lower lobe. PLEURA: Stable large right pleural effusion. CARDIOVASCULAR: Stable cardiomegaly. OSSEOUS STRUCTURES: No significant abnormalities. VISUALIZED UPPER ABDOMEN: Normal. OTHER FINDINGS: Stable position of support apparatus. IMPRESSION: No significant interval change compared to the prior examination(s).
--- NOTE | 2016-07-17 18:07 | CP.PCM.PN ---
Subjective - Date & Time of Evaluation Date of Evaluation: 07/17/16 Time of Evaluation: 09:00 - Subjective Subjective: events noted remains intubated iv rx renewed Objective - Vital Signs/Intake and Output Vital Signs (last 24 hours): Temp Pulse Resp BP Pulse Ox 98.0 F 73 17 96/56 L 100 07/17/16 16:00 07/17/16 16:35 07/17/16 16:00 07/17/16 16:35 07/17/16 16:00 Intake and Output: 07/17/16 07/17/16 06:59 18:59 Intake Total 2585 2220 Output Total 50 Balance 2535 2220 - Medications Medications: Current Medications Acetaminophen (Tylenol 325mg Tab) 650 mg PO Q6 PRN PRN Reason: Pain, moderate (4-7) Last Admin: 07/12/16 09:38 Dose: 650 mg Acetaminophen (Tylenol 325mg Tab) 650 mg PO Q6 PRN PRN Reason: Fever >100.4 F Last Admin: 07/17/16 06:05 Dose: 650 mg Albuterol/Ipratropium (Duoneb 3 Mg/0.5 Mg (3 Ml) Ud) 3 ml INH RQ4 PRN PRN Reason: Shortness of Breath Allopurinol (Zyloprim) 100 mg PO DAILY [facility] Last Admin: 07/17/16 08:57 Dose: 100 mg Atorvastatin Calcium (Lipitor) 80 mg PO DAILY [facility] Last Admin: 07/17/16 08:56 Dose: 80 mg Bismuth Subsalicylate (Pepto-Bismol) 524 mg PO Q6H PRN PRN Reason: Diarrhea Carvedilol (Coreg) 12.5 mg PO BID [facility] Last Admin: 07/17/16 16:35 Dose: Not Given Dextrose (Dextrose 50% Inj) 0 ml IVP STAT PRN; Protocol PRN Reason: Hypoglycemia Protocol Ezetimibe (Zetia) 10 mg PO HS [facility] Last Admin: 07/16/16 21:36 Dose: 10 mg Ergocalciferol (Drisdol 50,000 Intl Units Cap) 1 cap PO QWK [facility] Gabapentin (Neurontin) 300 mg PO BID [facility] Last Admin: 07/17/16 16:36 Dose: 300 mg Glucagon (Glucagen Diagnostic Kit) 0 mg IM STAT PRN; Protocol PRN Reason: Hypoglycemia Protocol Heparin Sodium (Porcine) (Heparin) 5,000 units SC Q8 [facility] PRN Reason: Protocol Last Admin: 07/17/16 16:35 Dose: 5,000 units Piperacillin Sod/Tazobactam (Sod 2.25 gm/ Sodium Chloride) 100 mls @ 100 mls/ hr IVPB Q8 [facility] Last Admin: 07/17/16 16:36 Dose: 100 mls/hr Amiodarone HCl 900 mg/ (Dextrose) 518 mls @ 34.53 mls/hr IVPB .Q15H1M [facility] GUADALUPE; 1 MG /MIN PRN Reason: Protocol Last Admin: 07/16/16 12:31 Dose: 34.53 mls/hr Vancomycin HCl 1 gm/ Sodium (Chloride) 250 mls @ 166.667 mls/hr IVPB Q48H [facility] Last Admin: 07/17/16 13:29 Dose: 166.667 mls/hr Phenylephrine HCl 20 mg/ (Sodium Chloride) 502 mls @ 0 mls/hr IV .Q0M [facility]; Per Protocol PRN Reason: Protocol Last Titration: 07/17/16 01:30 Dose: 70 mcg/min, 105.42 mls/hr Insulin Detemir (Levemir) 25 units SC HS [facility] Insulin Human Regular (Humulin R) 0 units SC ACHS [facility] PRN Reason: Protocol Last Admin: 07/17/16 16:35 Dose: 10 units Sevelamer Carbonate (Renvela) 0.8 gm PO TID [facility] Last Admin: 07/17/16 16:36 Dose: 0.8 gm Sitagliptin Phosphate (Januvia) 25 mg PO DAILY [facility] Last Admin: 07/17/16 08:56 Dose: 25 mg Tamsulosin HCl (Flomax) 0.4 mg PO DAILY [facility] Last Admin: 07/17/16 08:55 Dose: 0.4 mg - Labs Labs: 07/17/16 04:35 07/17/16 04:20 PT 12.5 SECONDS (9.6-11.2) H 07/17/16 04:35 INR 1.20 (0.92-1.08) H 07/17/16 04:35 APTT 34.8 SECONDS (23.3-32.5) H 07/17/16 04:35 - Constitutional Appears: Confused, Cachectic, Chronically Ill - Head Exam Head Exam: NORMOCEPHALIC - Eye Exam Eye Exam: absent: Scleral icterus - ENT Exam ENT Exam: Mucous Membranes Dry - Neck Exam Neck Exam: absent: Lymphadenopathy - Respiratory Exam Respiratory Exam: Decreased Breath Sounds, Rhonchi - Cardiovascular Exam Cardiovascular Exam: REGULAR RHYTHM, +S1, +S2 - GI/Abdominal Exam GI & Abdominal Exam: Distended, Soft - Rectal Exam Rectal Exam: Deferred - Exam Exam: NORMAL INSPECTION Assessment and Plan (1) Acute kidney failure Status: Acute (2) Cellulitis of right lower extremity Status: Acute (3) Bacteremia Status: Acute (4) Bacteremia Status: Acute - Assessment and Plan (Free Text) Assessment: renew IV rx
[2016-07-18 05:49] LABS: ABG ALLEN TEST YES; ABG MECHANICAL RATE 12; ARTERIAL BLOOD GAS HCO3 24.4 mmol/L (21-28); ARTERIAL BLOOD GAS MODE A/C; ARTERIAL BLOOD GAS O2 CAPACITY 13.2 mL/dL (16-24); ARTERIAL BLOOD GAS O2 CONTENT 12.3 ML/dL (15-23); ARTERIAL BLOOD GAS PH 7.32 (7.35-7.45); ARTERIAL BLOOD GAS PO2 56 mm/Hg (80-100); ARTERIAL BLOOD HGB O2 SAT 90.6 % (95.0-98.0); ATERIAL BLOOD GAS PEEP 5; CARBOXYHEMOGLOBIN 1.5 % (0.5-1.5); HHB 6.4 % (0.0-5.0); METHEMOGLOBIN 1.4 % (0.0-3.0)
[2016-07-18 06:11] LABS: HEMATOCRIT 27.5 % (35.0-51.0); MEAN CELL VOLUME 85.3 fl (80.0-94.0); MEAN CORPUSCULAR HEMOGLOBIN 26.4 pg (27.0-31.0); RED CELL DISTRIBUTION WIDTH 18.3 % (11.5-14.5); WHITE BLOOD COUNT 21.1 K/uL (4.8-10.8)
[2016-07-18 06:22] LABS: ALB/GLOB RATIO 0.7 (1.0-2.1); BILIRUBIN,TOTAL 0.9 mg/dl (0.2-1.3); CALCIUM 7.2 mg/dL (8.4-10.2); POTASSIUM 4.2 MMOL/L (3.6-5.0)
[2016-07-18] MEDS: Insulin Regular 100 units/ml SC SCH ×4 (06:45→21:48)
[2016-07-18] MEDS: PHENYLEPHRINE IV SCH ×2 (07:45→14:13)
[2016-07-18] MEDS: SODIUM CHLORIDE 0.9% IV SCH ×2 (07:45→14:13)
[2016-07-18] MEDS: Sevelamer Carb 0.8 gm/Packet PO SCH ×3 (08:47→16:34)
--- NOTE | 2016-07-18 09:06 | RAD ---
HISTORY: Intubated. Portable study 05:00. COMPARISON: Multiple serial examinations preceding the most recent study: July 17, 2016. FINDINGS: LUNGS: Low lung volumes persist. This accentuates infiltrates bilaterally right greater than left. Accounting for differences in technique, no interval change. PLEURA: No significant pleural effusion identified, no pneumothorax apparent. CARDIOVASCULAR: BMD changes compared to the prior study Venous access catheter in stable, satisfactory position. OSSEOUS STRUCTURES: No significant abnormalities. VISUALIZED UPPER ABDOMEN: Normal. OTHER FINDINGS: Endotracheal tube tip aboe the chandrakant (cm): 3.5 cm. IMPRESSION: No significant interval change compared to the prior examination(s).
--- NOTE | 2016-07-18 11:18 | CP.PCM.PN ---
<Mary Britton - Last Filed: 07/18/16 11:16> Subjective - Date & Time of Evaluation Date of Evaluation: 07/18/16 Time of Evaluation: 11:16 - Subjective Subjective: evaluated with attending. no overnight events. pt intubated. no eye movement, no extremity movement to command, no painful stimuli response. no ROS d/t lack of verbal response Objective - Vital Signs/Intake and Output Vital Signs (last 24 hours): Temp Pulse Resp BP Pulse Ox 99.5 F 69 15 108/61 100 07/18/16 08:30 07/18/16 11:00 07/18/16 11:00 07/18/16 11:00 07/18/16 11:00 Intake and Output: 07/18/16 07/18/16 06:59 18:59 Intake Total 1440 148.5 Balance 1440 148.5 - Medications Medications: Current Medications Acetaminophen (Tylenol 325mg Tab) 650 mg PO Q6 PRN PRN Reason: Pain, moderate (4-7) Last Admin: 07/12/16 09:38 Dose: 650 mg Acetaminophen (Tylenol 325mg Tab) 650 mg PO Q6 PRN PRN Reason: Fever >100.4 F Last Admin: 07/18/16 00:21 Dose: 650 mg Albuterol/Ipratropium (Duoneb 3 Mg/0.5 Mg (3 Ml) Ud) 3 ml INH RQ4 PRN PRN Reason: Shortness of Breath Last Admin: 07/17/16 19:14 Dose: 3 ml Allopurinol (Zyloprim) 100 mg PO DAILY [facility] Last Admin: 07/17/16 08:57 Dose: 100 mg Atorvastatin Calcium (Lipitor) 80 mg PO DAILY [facility] Last Admin: 07/17/16 08:56 Dose: 80 mg Bismuth Subsalicylate (Pepto-Bismol) 524 mg PO Q6H PRN PRN Reason: Diarrhea Carvedilol (Coreg) 12.5 mg PO BID [facility] Last Admin: 07/17/16 16:35 Dose: Not Given Dextrose (Dextrose 50% Inj) 0 ml IVP STAT PRN; Protocol PRN Reason: Hypoglycemia Protocol Ezetimibe (Zetia) 10 mg PO HS [facility] Last Admin: 07/17/16 22:06 Dose: 10 mg Ergocalciferol (Drisdol 50,000 Intl Units Cap) 1 cap PO QWK [facility] Gabapentin (Neurontin) 300 mg PO BID [facility] Last Admin: 07/17/16 16:36 Dose: 300 mg Glucagon (Glucagen Diagnostic Kit) 0 mg IM STAT PRN; Protocol PRN Reason: Hypoglycemia Protocol Heparin Sodium (Porcine) (Heparin) 5,000 units SC Q8 [facility] PRN Reason: Protocol Last Admin: 07/18/16 00:33 Dose: 5,000 units Piperacillin Sod/Tazobactam (Sod 2.25 gm/ Sodium Chloride) 100 mls @ 100 mls/ hr IVPB Q8 [facility] Last Admin: 07/18/16 00:23 Dose: 100 mls/hr Amiodarone HCl 900 mg/ (Dextrose) 518 mls @ 34.53 mls/hr IVPB .Q15H1M [facility]; 1 MG /MIN PRN Reason: Protocol Last Admin: 07/16/16 12:31 Dose: 34.53 mls/hr Vancomycin HCl 1 gm/ Sodium (Chloride) 250 mls @ 166.667 mls/hr IVPB Q48H [facility] Last Admin: 07/17/16 13:29 Dose: 166.667 mls/hr Phenylephrine HCl 20 mg/ (Sodium Chloride) 502 mls @ 0 mls/hr IV .Q0M [facility]; Per Protocol PRN Reason: Protocol Last Titration: 07/18/16 08:36 Dose: 60 mcg/min, 90.36 mls/hr Insulin Detemir (Levemir) 25 units SC HS [facility] Last Admin: 07/17/16 22:06 Dose: 25 units Insulin Human Regular (Humulin R) 0 units SC ACHS [facility] PRN Reason: Protocol Last Admin: 07/18/16 06:45 Dose: 8 units Sevelamer Carbonate (Renvela) 0.8 gm PO TID [facility] Last Admin: 07/18/16 08:47 Dose: Not Given Sitagliptin Phosphate (Januvia) 25 mg PO DAILY [facility] Last Admin: 07/17/16 08:56 Dose: 25 mg Tamsulosin HCl (Flomax) 0.4 mg PO DAILY [facility] Last Admin: 07/17/16 08:55 Dose: 0.4 mg - Labs Labs: 07/18/16 04:20 07/18/16 04:20 PT 12.5 SECONDS (9.6-11.2) H 05/11/17 04:35 INR 1.20 (0.92-1.08) H 07/17/16 04:35 APTT 34.8 SECONDS (23.3-32.5) H 07/17/16 04:35 - Constitutional Appears: Non-toxic - Head Exam Head Exam: ATRAUMATIC, NORMAL INSPECTION - Eye Exam Pupil Exam: Fixed Additional comments: no reflex - ENT Exam Additional comments: intubated - Neck Exam Neck Exam: Normal Inspection - Respiratory Exam Respiratory Exam: Clear to Ausculation Bilateral - Cardiovascular Exam Cardiovascular Exam: REGULAR RHYTHM - GI/Abdominal Exam GI & Abdominal Exam: Soft - Extremities Exam Extremities Exam: Normal Capillary Refill, Pedal Edema - Neurological Exam Neurological Exam: absent: Alert, Awake, Oriented x3 - Skin Skin Exam: Dry Assessment and Plan - Assessment and Plan (Free Text) Assessment: 80yo M with PMHx HTN, diabetes, prostate BPH and CKD admitted for acute on chronic kidney injury, cellulitis. Currently in ICU for bacteremia with anoxic brain injury on ventilator and unresponsive. EEG today bacteremia -2/2 cellulitis, PNA, or other source. h/o cath placement -blood cx: S anginosus/constellatus -leukocytosis, febrile 100.5 F last 24hr -ID on board, appreciate input -Vanc/Zosyn -pressors aspiration PNA -CXR 07/18/16: no interval change -ID on board, appreciate input -intubated PS 14/5/50% -Vanc/Zosyn pAfib -Cardio on board, appreciate input -coreg -amiodarone acute on CKD -emergent HD. prior HD 07/16/16 -Nephro on board, appreciate input -Renagel cellulitis -Vanc/Zosyn -ID on board, appreciate input -podiatry on board, appreciate input anoxic brain injury -GCS 2, E1V(T)M1 -2/2 renal failure, sepsis, or cardiorenal syndrome -CT head no acute change -neuro on board, appreciate input -intubated PS 14/5/50% -EEG anasarca -low albumin -monitor -HD -Nephro on board, appreciate input HTN -coreg HLD -statin -zetia DM -held linagliptin, pioglitazone -januvia -levemir -SSI -accuchecks DVT ppx -heparin <Solorio,Tang K - Last Filed: 07/18/16 15:58> Objective - Vital Signs/Intake and Output Vital Signs (last 24 hours): Temp Pulse Resp BP Pulse Ox 97.7 F 85 17 103/61 100 07/18/16 12:23 07/18/16 15:00 07/18/16 15:00 07/18/16 15:00 07/18/16 15:00 Intake and Output: 07/18/16 07/18/16 06:59 18:59 Intake Total 1440 1032.0 Balance 1440 1032.0 - Medications Medications: Current Medications Acetaminophen (Tylenol 325mg Tab) 650 mg PO Q6 PRN PRN Reason: Pain, moderate (4-7) Last Admin: 07/12/16 09:38 Dose: 650 mg Acetaminophen (Tylenol 325mg Tab) 650 mg PO Q6 PRN PRN Reason: Fever >100.4 F Last Admin: 07/18/16 00:21 Dose: 650 mg Albuterol/Ipratropium (Duoneb 3 Mg/0.5 Mg (3 Ml) Ud) 3 ml INH RQ4 PRN PRN Reason: Shortness of Breath Last Admin: 07/17/16 19:14 Dose: 3 ml Allopurinol (Zyloprim) 100 mg PO DAILY [facility] Last Admin: 07/18/16 11:58 Dose: 100 mg Atorvastatin Calcium (Lipitor) 80 mg PO DAILY [facility] Last Admin: 07/18/16 11:56 Dose: 80 mg Bismuth Subsalicylate (Pepto-Bismol) 524 mg PO Q6H PRN PRN Reason: Diarrhea Carvedilol (Coreg) 12.5 mg PO BID [facility] Last Admin: 07/18/16 11:55 Dose: Not Given Dextrose (Dextrose 50% Inj) 0 ml IVP STAT PRN; Protocol PRN Reason: Hypoglycemia Protocol Ezetimibe (Zetia) 10 mg PO HS [facility] Last Admin: 07/17/16 22:06 Dose: 10 mg Ergocalciferol (Drisdol 50,000 Intl Units Cap) 1 cap PO QWK [facility] Gabapentin (Neurontin) 300 mg PO BID [facility] Last Admin: 07/18/16 11:56 Dose: Not Given Glucagon (Glucagen Diagnostic Kit) 0 mg IM STAT PRN; Protocol PRN Reason: Hypoglycemia Protocol Piperacillin Sod/Tazobactam (Sod 2.25 gm/ Sodium Chloride) 100 mls @ 100 mls/ hr IVPB Q8 [facility] Last Admin: 07/18/16 11:57 Dose: 100 mls/hr Amiodarone HCl 900 mg/ (Dextrose) 518 mls @ 34.53 mls/hr IVPB .Q15H1M [facility]; 1 MG /MIN PRN Reason: Protocol Last Admin: 07/16/16 12:31 Dose: 34.53 mls/hr Phenylephrine HCl 20 mg/ (Sodium Chloride) 502 mls @ 0 mls/hr IV .Q0M [facility]; Per Protocol PRN Reason: Protocol Last Admin: 07/18/16 14:13 Dose: 60 mcg/min, 90.36 mls/hr Vancomycin HCl 1 gm/ Sodium (Chloride) 250 mls @ 166.667 mls/hr IVPB Q72H [facility] Insulin Detemir (Levemir) 25 units SC HS [facility] Last Admin: 07/17/16 22:06 Dose: 25 units Insulin Human Regular (Humulin R) 0 units SC ACHS [facility] PRN Reason: Protocol Last Admin: 07/18/16 12:11 Dose: 4 units Sevelamer Carbonate (Renvela) 0.8 gm PO TID [facility] Last Admin: 07/18/16 12:00 Dose: 0.8 gm Sitagliptin Phosphate (Januvia) 25 mg PO DAILY [facility] Last Admin: 07/18/16 11:56 Dose: 25 mg Tamsulosin HCl (Flomax) 0.4 mg PO DAILY [facility] Last Admin: 07/18/16 11:55 Dose: 0.4 mg - Labs Labs: 07/18/16 04:20 07/18/16 04:20 PT 12.5 SECONDS (9.6-11.2) H 07/17/16 04:35 INR 1.20 (0.92-1.08) H 07/17/16 04:35 APTT 34.8 SECONDS (23.3-32.5) H 07/17/16 04:35 Assessment and Plan - Assessment and Plan (Free Text) Assessment: Patient seen and examined with residents in rounds. Case, condition, investigative work up and plan discussed in detail. Agree with residents progress note. Plan: As ordered. (Tang Solorio MD)
--- NOTE | 2016-07-18 12:49 | CP.PCM.PN ---
Subjective - Date & Time of Evaluation Date of Evaluation: 07/18/16 Time of Evaluation: 12:44 - Subjective Subjective: Mr. Montalvo was seen and examined today in the ICU. There were no acute events overnight. There is no change in his clinical condition based on nursing reports. He is intubated, off sedation, breathing over the ventilator with no spontaneous movements. Objective - Vital Signs/Intake and Output Vital Signs (last 24 hours): Temp Pulse Resp BP Pulse Ox 97.7 F 76 15 109/60 100 07/18/16 12:23 07/18/16 12:23 07/18/16 12:23 07/18/16 12:23 07/18/16 12:23 Intake and Output: 07/18/16 07/18/16 06:59 18:59 Intake Total 1440 458.5 Balance 1440 458.5 - Medications Medications: Current Medications Acetaminophen (Tylenol 325mg Tab) 650 mg PO Q6 PRN PRN Reason: Pain, moderate (4-7) Last Admin: 07/12/16 09:38 Dose: 650 mg Acetaminophen (Tylenol 325mg Tab) 650 mg PO Q6 PRN PRN Reason: Fever >100.4 F Last Admin: 07/18/16 00:21 Dose: 650 mg Albuterol/Ipratropium (Duoneb 3 Mg/0.5 Mg (3 Ml) Ud) 3 ml INH RQ4 PRN PRN Reason: Shortness of Breath Last Admin: 07/17/16 19:14 Dose: 3 ml Allopurinol (Zyloprim) 100 mg PO DAILY [facility] Last Admin: 07/18/16 11:58 Dose: 100 mg Atorvastatin Calcium (Lipitor) 80 mg PO DAILY [facility] Last Admin: 07/18/16 11:56 Dose: 80 mg Bismuth Subsalicylate (Pepto-Bismol) 524 mg PO Q6H PRN PRN Reason: Diarrhea Carvedilol (Coreg) 12.5 mg PO BID [facility] Last Admin: 07/18/16 11:55 Dose: Not Given Dextrose (Dextrose 50% Inj) 0 ml IVP STAT PRN; Protocol PRN Reason: Hypoglycemia Protocol Ezetimibe (Zetia) 10 mg PO HS [facility] Last Admin: 07/17/16 22:06 Dose: 10 mg Ergocalciferol (Drisdol 50,000 Intl Units Cap) 1 cap PO QWK [facility] Gabapentin (Neurontin) 300 mg PO BID [facility] Last Admin: 07/18/16 11:56 Dose: Not Given Glucagon (Glucagen Diagnostic Kit) 0 mg IM STAT PRN; Protocol PRN Reason: Hypoglycemia Protocol Heparin Sodium (Porcine) (Heparin) 5,000 units SC Q8 [facility] PRN Reason: Protocol Last Admin: 07/18/16 11:55 Dose: 5,000 units Piperacillin Sod/Tazobactam (Sod 2.25 gm/ Sodium Chloride) 100 mls @ 100 mls/ hr IVPB Q8 [facility] Last Admin: 07/18/16 11:57 Dose: 100 mls/hr Amiodarone HCl 900 mg/ (Dextrose) 518 mls @ 34.53 mls/hr IVPB .Q15H1M [facility]; 1 MG /MIN PRN Reason: Protocol Last Admin: 07/16/16 12:31 Dose: 34.53 mls/hr Vancomycin HCl 1 gm/ Sodium (Chloride) 250 mls @ 166.667 mls/hr IVPB Q48H [facility] Last Admin: 07/17/16 13:29 Dose: 166.667 mls/hr Phenylephrine HCl 20 mg/ (Sodium Chloride) 502 mls @ 0 mls/hr IV .Q0M [facility]; Per Protocol PRN Reason: Protocol Last Titration: 07/18/16 08:36 Dose: 60 mcg/min, 90.36 mls/hr Insulin Detemir (Levemir) 25 units SC HS [facility] Last Admin: 07/17/16 22:06 Dose: 25 units Insulin Human Regular (Humulin R) 0 units SC ACHS [facility] PRN Reason: Protocol Last Admin: 07/18/16 12:11 Dose: 4 units Sevelamer Carbonate (Renvela) 0.8 gm PO TID [facility] Last Admin: 07/18/16 12:00 Dose: 0.8 gm Sitagliptin Phosphate (Januvia) 25 mg PO DAILY [facility] Last Admin: 07/18/16 11:56 Dose: 25 mg Tamsulosin HCl (Flomax) 0.4 mg PO DAILY [facility] Last Admin: 07/18/16 11:55 Dose: 0.4 mg - Labs Labs: 07/18/16 04:20 07/18/16 04:20 PT 12.5 SECONDS (9.6-11.2) H 07/17/16 04:35 INR 1.20 (0.92-1.08) H 07/17/16 04:35 APTT 34.8 SECONDS (23.3-32.5) H 07/17/16 04:35 - Constitutional Appears: Chronically Ill - Head Exam Head Exam: ATRAUMATIC, NORMAL INSPECTION, NORMOCEPHALIC - Eye Exam Pupil Exam: Fixed - Respiratory Exam Additional comments: Intubated, on AC - Cardiovascular Exam Cardiovascular Exam: REGULAR RHYTHM, +S1, +S2. absent: Murmur Additional comments: occasional atrial fibrillation, on neosynephrine for BP support. - GI/Abdominal Exam GI & Abdominal Exam: Soft, Normal Bowel Sounds. absent: Tenderness - Neurological Exam Neuro motor strength exam: Left Upper Extremity: 0, Right Upper Extremity: 0, Left Lower Extremity: 0, Right Lower Extremity: 0 Additional comments: Opens eyes occasionally to voice. No motor response to pain. Neurologically unchanged compared with yesterday's examination. Assessment and Plan (1) Anoxic brain injury Assessment & Plan: Poor prognosis. Will review EEG results. Continue supportive care per family' s wishes. Discuss prognosis with family and social work. Status: Acute
--- NOTE | 2016-07-18 13:46 | CP.PCM.PN ---
Subjective - Date & Time of Evaluation Date of Evaluation: 07/18/16 Time of Evaluation: 08:00 - Subjective Subjective: remains vented/ obtunded NAD IV antibitics reordered doses adjusted Objective - Vital Signs/Intake and Output Vital Signs (last 24 hours): Temp Pulse Resp BP Pulse Ox 97.7 F 79 17 99/58 L 100 07/18/16 12:23 07/18/16 13:00 07/18/16 13:00 07/18/16 13:00 07/18/16 13:00 Intake and Output: 07/18/16 07/18/16 06:59 18:59 Intake Total 1440 458.5 Balance 1440 458.5 - Medications Medications: Current Medications Acetaminophen (Tylenol 325mg Tab) 650 mg PO Q6 PRN PRN Reason: Pain, moderate (4-7) Last Admin: 07/12/16 09:38 Dose: 650 mg Acetaminophen (Tylenol 325mg Tab) 650 mg PO Q6 PRN PRN Reason: Fever >100.4 F Last Admin: 07/18/16 00:21 Dose: 650 mg Albuterol/Ipratropium (Duoneb 3 Mg/0.5 Mg (3 Ml) Ud) 3 ml INH RQ4 PRN PRN Reason: Shortness of Breath Last Admin: 07/17/16 19:14 Dose: 3 ml Allopurinol (Zyloprim) 100 mg PO DAILY [facility] Last Admin: 07/18/16 11:58 Dose: 100 mg Atorvastatin Calcium (Lipitor) 80 mg PO DAILY [facility] Last Admin: 07/18/16 11:56 Dose: 80 mg Bismuth Subsalicylate (Pepto-Bismol) 524 mg PO Q6H PRN PRN Reason: Diarrhea Carvedilol (Coreg) 12.5 mg PO BID [facility] Last Admin: 07/18/16 11:55 Dose: Not Given Dextrose (Dextrose 50% Inj) 0 ml IVP STAT PRN; Protocol PRN Reason: Hypoglycemia Protocol Ezetimibe (Zetia) 10 mg PO HS [facility] Last Admin: 07/17/16 22:06 Dose: 10 mg Ergocalciferol (Drisdol 50,000 Intl Units Cap) 1 cap PO QWK [facility] Gabapentin (Neurontin) 300 mg PO BID [facility] Last Admin: 07/18/16 11:56 Dose: Not Given Glucagon (Glucagen Diagnostic Kit) 0 mg IM STAT PRN; Protocol PRN Reason: Hypoglycemia Protocol Heparin Sodium (Porcine) (Heparin) 5,000 units SC Q8 [facility] PRN Reason: Protocol Last Admin: 07/18/16 11:55 Dose: 5,000 units Piperacillin Sod/Tazobactam (Sod 2.25 gm/ Sodium Chloride) 100 mls @ 100 mls/ hr IVPB Q8 [facility] Last Admin: 07/18/16 11:57 Dose: 100 mls/hr Amiodarone HCl 900 mg/ (Dextrose) 518 mls @ 34.53 mls/hr IVPB .Q15H1M [facility]; 1 MG /MIN PRN Reason: Protocol Last Admin: 07/16/16 12:31 Dose: 34.53 mls/hr Phenylephrine HCl 20 mg/ (Sodium Chloride) 502 mls @ 0 mls/hr IV .Q0M [facility]; Per Protocol PRN Reason: Protocol Last Titration: 07/18/16 08:36 Dose: 60 mcg/min, 90.36 mls/hr Vancomycin HCl 1,000 mg/ (Sodium Chloride) 250 mls @ 250 mls/hr IVPB Q72H [facility] Insulin Detemir (Levemir) 25 units SC HS [facility] Last Admin: 07/17/16 22:06 Dose: 25 units Insulin Human Regular (Humulin R) 0 units SC ACHS [facility] PRN Reason: Protocol Last Admin: 07/18/16 12:11 Dose: 4 units Sevelamer Carbonate (Renvela) 0.8 gm PO TID [facility] Last Admin: 07/18/16 12:00 Dose: 0.8 gm Sitagliptin Phosphate (Januvia) 25 mg PO DAILY [facility] Last Admin: 07/18/16 11:56 Dose: 25 mg Tamsulosin HCl (Flomax) 0.4 mg PO DAILY [facility] Last Admin: 07/18/16 11:55 Dose: 0.4 mg - Labs Labs: 07/18/16 04:20 07/18/16 04:20 PT 12.5 SECONDS (9.6-11.2) H 07/17/16 04:35 INR 1.20 (0.92-1.08) H 07/17/16 04:35 APTT 34.8 SECONDS (23.3-32.5) H 07/17/16 04:35 - Constitutional Appears: Chronically Ill - Head Exam Head Exam: NORMOCEPHALIC - Eye Exam Eye Exam: absent: Scleral icterus - ENT Exam ENT Exam: Mucous Membranes Dry - Neck Exam Neck Exam: absent: Lymphadenopathy - Respiratory Exam Respiratory Exam: Decreased Breath Sounds, Rhonchi - Cardiovascular Exam Cardiovascular Exam: REGULAR RHYTHM, +S1, +S2 - GI/Abdominal Exam GI & Abdominal Exam: Distended, Soft. absent: Tenderness - Rectal Exam Rectal Exam: Deferred - Exam Exam: NORMAL INSPECTION - Extremities Exam Extremities Exam: absent: Pedal Edema - Back Exam Back Exam: absent: CVA tenderness (L), CVA tenderness (R) - Neurological Exam Neurological Exam: Altered Assessment and Plan (1) Acute kidney failure Status: Acute (2) Cellulitis of right lower extremity Status: Acute (3) Bacteremia Status: Acute (4) Bacteremia Status: Acute - Assessment and Plan (Free Text) Plan: cont rx poor prognosis
--- NOTE | 2016-07-18 17:34 | CP.CCUPN ---
CCU Subjective - Physician Review Events Since Last Encounter (Free Text): 07/18/16 17:38 The Patient was seen and examined at the bedside, Medical records reviewed, all clinical/lab/hemodynamic/radiographic data were reviewed and management issues were discussed and formulated, Events reviewed Pain issues, skin care, head of the bed elevation, GI/DVT prophylaxis, glycemic control were addressed. 80-year-old male with a pertinent medical history of HTN, diabetes, BPH and CKD Who initially presents to the ED on 07/10 with complaints of abdominal pain started 2x weeks ago and bloating. He was found to have acute on CKD and underwent CT abdomen/pelvis which showed a distended GB suspicious for cholecystitis, Surgery and nephrology was consulted, Currently also on IV antibiotics for aspiration pneumonia. He has been lethargic, and was sent for head and chest CT scan, after completion of the test, [employer] was called then changed in 3 minutes into code blue He was coded for 10 minutes, received 4 rounds of Epinephrine also got IV Calcium gluconate, Intubated with 7.5 ET tube ROSC achieved and was transferred to ICU following cardiac arrest this morning, now orally intubated, Unresponsive to painful stimuli Hospital course also notable for A-Fib with RVR, S/p Amiodarone Afebrile overnight Patient receive HD today ON IV antibitics as per ID, doses renally adjusted EEG done today CCU Objective - Vital Signs / Intake & Output Vital Signs (Last 4 hours): Vital Signs Temp Pulse Resp BP Pulse Ox 07/18/16 16:31 79 104/59 L 07/18/16 16:00 100 F H 80 18 98/56 L 100 07/18/16 15:00 85 17 103/61 100 07/18/16 14:13 81 102/56 L 07/18/16 14:00 82 17 102/56 L 100 Intake and Output (Last 8hrs): Intake & Output 07/18/16 07/18/16 07/18/16 06:59 14:59 22:59 Intake Total 920 1032.0 210 Balance 920 1032.0 210 Intake: IV 480 502.0 Intake, Piggyback 100 Oral 100 Tube Feeding 440 330 110 Free Water Flush 100 Other: # Voids Urine, Voided 1 1 # Bowel Movements 1 1 1 - Physical Exam Head: Positive for: Atraumatic, Normocephalic Pupils: Positive for: Non-Reactive Extroacular Muscles: Negative for: EOMI Conjunctiva: Negative for: Injected, Icteric Ears: Positive for: Normal Mouth: Positive for: Dry Pharnyx: Positive for: Normal Neck: Positive for: Other (Right IJ HD catheter site clean with no signs of erythema.) Respiratory/Chest: Positive for: Rhonchi, Tachypneic, Other (Patient on mechanical ventilation. B/L air entry present with occasional expiratory rhonchii. ). Negative for: Wheezes Cardiovascular: Positive for: Regular Rate and Rhythm. Negative for: Murmurs Abdomen: Positive for: Normal Bowel Sounds. Negative for: Tenderness, Distention Genitourinary Male: Positive for: Other (Right groin TLC site clean, dry, with no surrounding erythema. ) Upper Extremity: Positive for: Edema (B/L upper extremity edema Lt>Rt) Lower Extremity: Positive for: Edema (2+), Other (Lower extremity xeroform/YADIRA bandaging in place to upper calf. 2+ pitting edema noted above level of dressings.) Neurological: Positive for: Other (Unresponsive to verbal or painful stimuli. Pupils fixed. Corneal reflex present with occasional spontaneous blink. Mild gag reflex. Not moving extremities. ). Negative for: CN II-XII Intact Psychiatric: Negative for: Alert - Medications Active Medications: Active Medications Generic Name Dose Route Start Last Admin Trade Name Freq PRN Reason Stop Dose Admin Acetaminophen 650 mg 07/10/16 02:12 07/12/16 09:38 Tylenol 325mg Tab PO 650 mg Q6 PRN Administration Pain, moderate (4-7) Acetaminophen 650 mg 07/12/16 22:03 07/18/16 00:21 Tylenol 325mg Tab PO 650 mg Q6 PRN Administration Fever >100.4 F Albuterol/Ipratropium 3 ml 07/14/16 11:48 07/17/16 19:14 Duoneb 3 Mg/0.5 Mg (3 Ml) Ud INH 3 ml RQ4 PRN Administration Shortness of Breath Allopurinol 100 mg 07/10/16 09:00 07/18/16 11:58 Zyloprim PO 100 mg DAILY MARIA GUADALUPE Administration Atorvastatin Calcium 80 mg 07/10/16 09:00 07/18/16 11:56 Lipitor PO 80 mg DAILY MARIA GUADALUPE Administration Bismuth Subsalicylate 524 mg 07/11/16 17:33 Pepto-Bismol PO Q6H PRN Diarrhea Carvedilol 12.5 mg 07/10/16 09:00 07/18/16 16:31 Coreg PO 12.5 mg BID MARIA GUADALUPE Administration Dextrose 0 ml 07/10/16 15:13 Dextrose 50% Inj IVP STAT PRN Hypoglycemia Protocol Protocol Ezetimibe 10 mg 07/10/16 22:00 07/17/16 22:06 Zetia PO 10 mg HS MARIA GUADALUPE Administration Ergocalciferol 1 cap 07/10/16 02:30 Drisdol 50,000 Intl Units Cap PO QWK MARIA GUADALUPE Gabapentin 300 mg 07/10/16 09:00 07/18/16 16:34 Neurontin PO 300 mg BID MARIA GUADALUPE Administration Glucagon 0 mg 07/10/16 15:13 Glucagen Diagnostic Kit IM STAT PRN Hypoglycemia Protocol Protocol Piperacillin Sod/Tazobactam 100 mls @ 100 mls/hr 07/16/16 11:15 07/18/16 16: 34 Sod 2.25 gm/ Sodium Chloride IVPB 100 mls/hr Q8 MARIA GUADALUPE Administration Amiodarone HCl 900 mg/ 518 mls @ 34.53 mls/hr 07/16/16 12:00 07/16/16 12:31 Dextrose IVPB 34.53 mls/hr .Q15H1M MARIA GUADALUPE Administration Protocol 1 MG/MIN Phenylephrine HCl 20 mg/ 502 mls @ 0 mls/hr 07/16/16 17:52 07/18/16 14:13 Sodium Chloride IV 60 mcg/min .Q0M MARIA GUADALUPE 90.36 mls/hr Protocol Administration Per Protocol Vancomycin HCl 1 gm/ Sodium 250 mls @ 166.667 mls/hr 07/20/16 10:00 Chloride IVPB Q72H MARIA GUADALUPE Insulin Detemir 25 units 07/17/16 15:31 07/17/16 22:06 Levemir SC 25 units HS MARIA GUADALUPE Administration Insulin Human Regular 0 units 07/16/16 10:34 07/18/16 16:32 Humulin R SC 6 units ACHS MARIA GUADALUPE Administration Protocol Sevelamer Carbonate 0.8 gm 07/16/16 09:30 07/18/16 16:34 Renvela PO 0.8 gm TID MARIA GUADALUPE Administration Sitagliptin Phosphate 25 mg 07/10/16 09:00 07/18/16 11:56 Januvia PO 25 mg DAILY MARIA GUADALUPE Administration Tamsulosin HCl 0.4 mg 07/10/16 09:00 07/18/16 11:55 Flomax PO 0.4 mg DAILY MARIA GUADALUPE Administration - Patient Studies Lab Studies: Microbiology Studies 07/14/16 10:00 Blood Culture - Preliminary Blood NO GROWTH AFTER 4 DAYS Lab Studies 07/18/16 07/18/16 07/18/16 Range/Units 16:31 12:03 06:25 WBC (4.8-10.8) K/uL RBC (4.40-5.90) Mil/uL Hgb (12.0-18.0) g/dL Hct (35.0-51.0) % MCV (80.0-94.0) fl MCH (27.0-31.0) pg MCHC (33.0-37.0) g/dL RDW (11.5-14.5) % Plt Count (130-400) K/uL pCO2 (35-45) mm/Hg pO2 (80-100) mm/Hg HCO3 (21-28) mmol/L ABG pH (7.35-7.45) ABG Total CO2 (22-28) mmol/L ABG O2 Saturation (95-98) % ABG O2 Content (15-23) ML/dL ABG Base Excess (-2.0-3.0) mmol/L ABG Hemoglobin (11.7-17.4) g/dL ABG Carboxyhemoglobin (0.5-1.5) % POC ABG HHb (Measured) (0.0-5.0) % ABG Methemoglobin (0.0-3.0) % ABG O2 Capacity (16-24) mL/dL Mason Test A-a O2 Difference mm/Hg Hgb O2 Saturation (95.0-98.0) % Vent Mode Mechanical Rate FiO2 % Tidal Volume PEEP Sodium (132-148) mmol/l Potassium (3.6-5.0) MMOL/L Chloride (98-107) mmol/L Carbon Dioxide (22-30) mmol/L Anion Gap (10-20) BUN (9-20) mg/dl Creatinine (0.8-1.5) mg/dL Est GFR ( Amer) Est GFR (Non-Af Amer) POC Glucose (mg/dL) 312 H 264 H 353 H (65-110) mg/dL Random Glucose (75-110) mg/dL Calcium (8.4-10.2) mg/dL Total Bilirubin (0.2-1.3) mg/dl AST (17-59) U/L ALT (21-72) U/L Alkaline Phosphatase (38-126) U/L Total Protein (6.3-8.2) G/DL Albumin (3.5-5.0) g/dL Globulin (2.2-3.9) gm/dL Albumin/Globulin Ratio (1.0-2.1) Random Vancomycin ug/mL 07/18/16 07/18/16 07/18/16 Range/Units 05:40 04:20 04:20 WBC (4.8-10.8) K/uL RBC (4.40-5.90) Mil/uL Hgb (12.0-18.0) g/dL Hct (35.0-51.0) % MCV (80.0-94.0) fl MCH (27.0-31.0) pg MCHC (33.0-37.0) g/dL RDW (11.5-14.5) % Plt Count (130-400) K/uL pCO2 50 H (35-45) mm/Hg pO2 56 L (80-100) mm/Hg HCO3 24.4 (21-28) mmol/L ABG pH 7.32 L (7.35-7.45) ABG Total CO2 27.3 (22-28) mmol/L ABG O2 Saturation 93.4 L (95-98) % ABG O2 Content 12.3 L (15-23) ML/dL ABG Base Excess -0.6 (-2.0-3.0) mmol/L ABG Hemoglobin 9.6 L (11.7-17.4) g/dL ABG Carboxyhemoglobin 1.5 (0.5-1.5) % POC ABG HHb (Measured) 6.4 H (0.0-5.0) % ABG Methemoglobin 1.4 (0.0-3.0) % ABG O2 Capacity 13.2 L (16-24) mL/dL Mason Test Yes A-a O2 Difference 238.0 mm/Hg Hgb O2 Saturation 90.6 L (95.0-98.0) % Vent Mode A/c Mechanical Rate 12 FiO2 50.0 % Tidal Volume 500 PEEP 5 Sodium 134 (132-148) mmol/l Potassium 4.2 (3.6-5.0) MMOL/L Chloride 97 L (98-107) mmol/L Carbon Dioxide 24 (22-30) mmol/L Anion Gap 17 (10-20) BUN 85 H (9-20) mg/dl Creatinine 6.3 H (0.8-1.5) mg/dL Est GFR ( Amer) 10 Est GFR (Non-Af Amer) 9 POC Glucose (mg/dL) (65-110) mg/dL Random Glucose 409 H* (75-110) mg/dL Calcium 7.2 L (8.4-10.2) mg/dL Total Bilirubin 0.9 (0.2-1.3) mg/dl AST 33 (17-59) U/L ALT 30 (21-72) U/L Alkaline Phosphatase 338 H (38-126) U/L Total Protein 6.0 L (6.3-8.2) G/DL Albumin 2.5 L (3.5-5.0) g/dL Globulin 3.6 (2.2-3.9) gm/dL Albumin/Globulin Ratio 0.7 L (1.0-2.1) Random Vancomycin 29.0 ug/mL 07/18/16 07/17/16 Range/Units 04:20 22:01 WBC 21.1 H (4.8-10.8) K/uL RBC 3.22 L (4.40-5.90) Mil/uL Hgb 8.5 L (12.0-18.0) g/dL Hct 27.5 L (35.0-51.0) % MCV 85.3 (80.0-94.0) fl MCH 26.4 L (27.0-31.0) pg MCHC 31.0 L (33.0-37.0) g/dL RDW 18.3 H (11.5-14.5) % Plt Count 183 (130-400) K/uL pCO2 (35-45) mm/Hg pO2 (80-100) mm/Hg HCO3 (21-28) mmol/L ABG pH (7.35-7.45) ABG Total CO2 (22-28) mmol/L ABG O2 Saturation (95-98) % ABG O2 Content (15-23) ML/dL ABG Base Excess (-2.0-3.0) mmol/L ABG Hemoglobin (11.7-17.4) g/dL ABG Carboxyhemoglobin (0.5-1.5) % POC ABG HHb (Measured) (0.0-5.0) % ABG Methemoglobin (0.0-3.0) % ABG O2 Capacity (16-24) mL/dL Mason Test A-a O2 Difference mm/Hg Hgb O2 Saturation (95.0-98.0) % Vent Mode Mechanical Rate FiO2 % Tidal Volume PEEP Sodium (132-148) mmol/l Potassium (3.6-5.0) MMOL/L Chloride (98-107) mmol/L Carbon Dioxide (22-30) mmol/L Anion Gap (10-20) BUN (9-20) mg/dl Creatinine (0.8-1.5) mg/dL Est GFR ( Amer) Est GFR (Non-Af Amer) POC Glucose (mg/dL) 421 H* (65-110) mg/dL Random Glucose (75-110) mg/dL Calcium (8.4-10.2) mg/dL Total Bilirubin (0.2-1.3) mg/dl AST (17-59) U/L ALT (21-72) U/L Alkaline Phosphatase (38-126) U/L Total Protein (6.3-8.2) G/DL Albumin (3.5-5.0) g/dL Globulin (2.2-3.9) gm/dL Albumin/Globulin Ratio (1.0-2.1) Random Vancomycin ug/mL Laboratory Results - last 24 hr 07/17/16 07/18/16 07/18/16 22:01 04:20 04:20 WBC 21.1 H RBC 3.22 L Hgb 8.5 L Hct 27.5 L MCV 85.3 MCH 26.4 L MCHC 31.0 L RDW 18.3 H Plt Count 183 pCO2 pO2 HCO3 ABG pH ABG Total CO2 ABG O2 Saturation ABG O2 Content ABG Base Excess ABG Hemoglobin ABG Carboxyhemoglobin POC ABG HHb (Measured) ABG Methemoglobin ABG O2 Capacity Mason Test A-a O2 Difference Hgb O2 Saturation Vent Mode Mechanical Rate FiO2 Tidal Volume PEEP Sodium 134 Potassium 4.2 Chloride 97 L Carbon Dioxide 24 Anion Gap 17 BUN 85 H Creatinine 6.3 H Est GFR ( Amer) 10 Est GFR (Non-Af Amer) 9 POC Glucose (mg/dL) 421 H* Random Glucose 409 H* Calcium 7.2 L Total Bilirubin 0.9 AST 33 ALT 30 Alkaline Phosphatase 338 H Total Protein 6.0 L Albumin 2.5 L Globulin 3.6 Albumin/Globulin Ratio 0.7 L Random Vancomycin 07/18/16 07/18/16 07/18/16 04:20 05:40 06:25 WBC RBC Hgb Hct MCV MCH MCHC RDW Plt Count pCO2 50 H pO2 56 L HCO3 24.4 ABG pH 7.32 L ABG Total CO2 27.3 ABG O2 Saturation 93.4 L ABG O2 Content 12.3 L ABG Base Excess -0.6 ABG Hemoglobin 9.6 L ABG Carboxyhemoglobin 1.5 POC ABG HHb (Measured) 6.4 H ABG Methemoglobin 1.4 ABG O2 Capacity 13.2 L Mason Test Yes A-a O2 Difference 238.0 Hgb O2 Saturation 90.6 L Vent Mode A/c Mechanical Rate 12 FiO2 50.0 Tidal Volume 500 PEEP 5 Sodium Potassium Chloride Carbon Dioxide Anion Gap BUN Creatinine Est GFR ( Amer) Est GFR (Non-Af Amer) POC Glucose (mg/dL) 353 H Random Glucose Calcium Total Bilirubin AST ALT Alkaline Phosphatase Total Protein Albumin Globulin Albumin/Globulin Ratio Random Vancomycin 29.0 07/18/16 07/18/16 12:03 16:31 WBC RBC Hgb Hct MCV MCH MCHC RDW Plt Count pCO2 pO2 HCO3 ABG pH ABG Total CO2 ABG O2 Saturation ABG O2 Content ABG Base Excess ABG Hemoglobin ABG Carboxyhemoglobin POC ABG HHb (Measured) ABG Methemoglobin ABG O2 Capacity Mason Test A-a O2 Difference Hgb O2 Saturation Vent Mode Mechanical Rate FiO2 Tidal Volume PEEP Sodium Potassium Chloride Carbon Dioxide Anion Gap BUN Creatinine Est GFR ( Amer) Est GFR (Non-Af Amer) POC Glucose (mg/dL) 264 H 312 H Random Glucose Calcium Total Bilirubin AST ALT Alkaline Phosphatase Total Protein Albumin Globulin Albumin/Globulin Ratio Random Vancomycin Fingerstick Blood Sugar Results: 312 Review of Systems - Review of Systems Systems not reviewed;Unavailable: Intubated Critical Care Progress Note - Ventilator Checklist Head of Bed 30 Degrees: Yes Daily Sedation Vacation: Yes Daily Assessment of Readiness to Wean: Yes Daily Spontaneous Breathing Trial: Yes PUD Prophalyxis: Yes DVT Prophylaxis: Yes Oral Care with Chlorhexidine Gluconate {CHG}: Yes - Extremities/Vascular Does the Patient have a Central Venous Catheter?: Yes Does the Patient need a Central Venous Catheter?: Yes Does the Patient have a [place] Catheter?: No Does the Patient need a [place] Catheter?: No Assessment/Plan (1) Cardiac arrest Current Visit: Yes Status: Acute (2) Aspiration pneumonia Current Visit: Yes Status: Acute (3) Acute cholecystitis Current Visit: Yes Status: Acute (4) Acute kidney failure Current Visit: Yes Status: Acute (5) Anoxic brain injury Current Visit: Yes Status: Acute Priority: High - Assessment and Plan (Free Text) Assessment: - Continue meds, reviewed - Frequent neuro-check Q 2H - HOB elevation >30 - EEG and Brain MRI - Continue Antibiotics as per ID - Wean off Levophed for MAP 65-75 - Full Vent support - G Tube feeding - Bronchodilator Nebs - Aggressive Pulmonary toilets - IV fluids - Strict Is & Os - Neurology/ID/Renal evaluation appreciated. Discussed with the family in details diagnosis, treatment plans and alternatives Patient is full code
[2016-07-18] MEDS ORDERED: Dextrose 50% SYRINGE Inj (50 ml) IVP PRN (20:13)
[2016-07-18] MEDS ORDERED: Sodium Chloride 3% for Inhalation 4 ML VIAL.NEB IH PRN (20:13)
[2016-07-18] MEDS ORDERED: Ergocalciferol 50,000 Intl Units Cap PO SCH (20:13)
[2016-07-18] MEDS ORDERED: Bismuth Subsalicylate 262 mg/15 ml Sus (240 ml) PO PRN (20:13)
[2016-07-18] MEDS ORDERED: Albuterol-Ipratrop 3 mg / 0.5 (3 ml) UD INH PRN (20:13)
[2016-07-18] MEDS ORDERED: Glucagon Recombinant 1 mg Inj IM PRN (20:13)
[2016-07-18] MEDS ORDERED: Phenylephrine 10 mg/ml Inj ONE (20:22)
[2016-07-18] MEDS: Insulin Detemir 100 Units/ml Inj SC SCH (21:47)
--- NOTE | 2016-07-18 23:58 | CP.PCM.PN ---
Subjective - Date & Time of Evaluation Date of Evaluation: 07/18/16 Time of Evaluation: 12:00 - Subjective Subjective: SEEN ON RENAL F/U SEEN ON HD .. TOLERATING HD WELL ON HD M ALL PREVIOUS EMR REVIEWED .. LABS REVIEWED Objective - Vital Signs/Intake and Output Vital Signs (last 24 hours): Temp Pulse Resp BP Pulse Ox 100 F H 76 15 101/62 100 07/18/16 16:00 07/18/16 19:00 07/18/16 19:00 07/18/16 18:00 07/18/16 19:00 Intake and Output: 07/18/16 07/19/16 18:59 06:59 Intake Total 1452.0 Balance 1452.0 - Medications Medications: Current Medications Acetaminophen (Tylenol 325mg Tab) 650 mg PO Q6 PRN PRN Reason: Pain, moderate (4-7) Acetaminophen (Tylenol 325mg Tab) 650 mg PO Q6 PRN PRN Reason: Fever >100.4 F Albuterol/Ipratropium (Duoneb 3 Mg/0.5 Mg (3 Ml) Ud) 3 ml INH RQ4 PRN PRN Reason: Shortness of Breath Allopurinol (Zyloprim) 100 mg PO DAILY [facility] Atorvastatin Calcium (Lipitor) 80 mg PO DAILY [facility] Bismuth Subsalicylate (Pepto-Bismol) 524 mg PO Q6H PRN PRN Reason: Diarrhea Carvedilol (Coreg) 12.5 mg PO BID [facility] Dextrose (Dextrose 50% Inj) 0 ml IVP STAT PRN; Protocol PRN Reason: Hypoglycemia Protocol Ezetimibe (Zetia) 10 mg PO HS [facility] Last Admin: 07/18/16 22:34 Dose: 10 mg Ergocalciferol (Drisdol 50,000 Intl Units Cap) 1 cap PO QWK MARIA GUADALUPE Gabapentin (Neurontin) 300 mg PO BID MARIA GUADALUPE Glucagon (Glucagen Diagnostic Kit) 0 mg IM STAT PRN; Protocol PRN Reason: Hypoglycemia Protocol Phenylephrine HCl 40 mg/ (Sodium Chloride) 504 mls @ 45.36 mls/hr IV .Q11H7M MARIA GUADALUPE; 60 MCG/MIN PRN Reason: Protocol Last Admin: 07/18/16 21:00 Dose: 60 mcg/min, 45.36 mls/hr Vancomycin HCl 1 gm/ Sodium (Chloride) 250 mls @ 166.667 mls/hr IVPB Q72H MARIA GUADALUPE Piperacillin Sod/Tazobactam (Sod 2.25 gm/ Sodium Chloride) 100 mls @ 100 mls/ hr IVPB Q8 MARIA GUADALUPE Insulin Detemir (Levemir) 25 units SC HS MARIA GUADALUPE Last Admin: 07/18/16 21:47 Dose: 25 units Insulin Human Regular (Humulin R) 0 units SC ACHS MARIA GUADALUPE PRN Reason: Protocol Last Admin: 07/18/16 21:48 Dose: 2 units Sevelamer Carbonate (Renvela) 0.8 gm PO TID MARIA GUADALUPE Sitagliptin Phosphate (Januvia) 25 mg PO DAILY MARIA GUADALUPE Tamsulosin HCl (Flomax) 0.4 mg PO DAILY MARIA GUADALUPE - Labs Labs: 07/18/16 04:20 07/18/16 04:20 PT 12.5 SECONDS (9.6-11.2) H 07/17/16 04:35 INR 1.20 (0.92-1.08) H 07/17/16 04:35 APTT 34.8 SECONDS (23.3-32.5) H 07/17/16 04:35 Assessment and Plan - Assessment and Plan (Free Text) Assessment: A ON CKD .. ON HD M W F ANEMIA OF CKD .. ON EPO ELECTROLYTES ABNORMA;ITIES .. CORRECTED ON HD VDRF .. ON VENT .. S/P CODE BLUE SEPSIS ON IVAB C/O CURRENT CARE
[2016-07-19 04:56] LABS: ABG ALLEN TEST YES; ABG MECHANICAL RATE 14; ARTERIAL BLOOD GAS HCO3 25.6 mmol/L (21-28); ARTERIAL BLOOD GAS MODE A/C; ARTERIAL BLOOD GAS O2 CAPACITY 13.2 mL/dL (16-24); ARTERIAL BLOOD GAS O2 CONTENT 13.1 ML/dL (15-23); ARTERIAL BLOOD GAS PH 7.36 (7.35-7.45); ARTERIAL BLOOD GAS PO2 148 mm/Hg (80-100); ARTERIAL BLOOD HGB O2 SAT 96.9 % (95.0-98.0); ATERIAL BLOOD GAS PEEP 5; CARBOXYHEMOGLOBIN 1.2 % (0.5-1.5); HHB 0.4 % (0.0-5.0); METHEMOGLOBIN 1.4 % (0.0-3.0)
[2016-07-19] MEDS: Insulin Regular 100 units/ml SC SCH ×4 (06:40→22:35)
[2016-07-19 06:45] LABS: HEMATOCRIT 28.3 % (35.0-51.0); MEAN CELL VOLUME 85.5 fl (80.0-94.0); MEAN CORPUSCULAR HGB CONC 30.4 g/dL (33.0-37.0); RED CELL DISTRIBUTION WIDTH 18.6 % (11.5-14.5); WHITE BLOOD COUNT 22.1 K/uL (4.8-10.8)
[2016-07-19 06:48] LABS: BILIRUBIN,TOTAL 0.8 mg/dl (0.2-1.3); CALCIUM 7.4 mg/dL (8.4-10.2); POTASSIUM 3.9 MMOL/L (3.6-5.0); TOTAL PROTEIN 6.1 G/DL (6.3-8.2)
[2016-07-19 06:54] LABS: ALB/GLOB RATIO 0.6 (1.0-2.1)
--- NOTE | 2016-07-19 09:50 | PN ---
DATE: 07/19/2016 The patient seen and examined. Interim events noted. Consults noted, appreciated. [employer]pper inte rvention noted and appreciated. The patient remains in intervention care unit on ventilator. Not ab le to provide informative history or review of systems. PHYSICAL EXAMINATION: GENERAL: The patient was orally intubated on mechanical ventilation via endotracheal tube, toleratin g current setting without any respiratory distress, ____ essentially noncommunicative nonresponsive. VITAL SIGNS: Stable. HEART: S1, S2 normal, regular. LUNGS: Good bilateral air exchange, occasional crepitations. ABDOMEN: Soft, nontender. EXTREMITIES: The patient has chronic venous stasis but no acute distal neurovascular compromise. CENTRAL NERVOUS SYSTEM: Essentially unchanged. The patient is essentially noncommunicative with sig nificant anoxic encephalopathy. DIAGNOSTIC DATA: Available diagnostic data reviewed. Telemetry monitoring does not show significant arrhythmias. Overall, patient's general condition is critical and ____ looks dismal. PLAN: As ordered. Tang Solorio MD cc: [id number] TT: 07/19/2016 09:49:27 Confirmation # [id number] Dictation # [id number] mary
--- NOTE | 2016-07-19 10:07 | CP.CCUPN ---
CCU Subjective - Physician Review Events Since Last Encounter (Free Text): 07/19/16 10:05 Remained unresponsive, hypotensive, requiring, neosynepgrine , full code at the moment. CCU Objective - Vital Signs / Intake & Output Vital Signs (Last 4 hours): Vital Signs Temp Pulse Resp BP Pulse Ox 07/19/16 08:00 100.1 F H 80 19 109/54 L 100 Intake and Output (Last 8hrs): Intake & Output 07/18/16 07/19/16 07/19/16 22:59 06:59 14:59 Intake Total 1060 912 Output Total 30 Balance 1030 912 Intake: IV 360 362 Intake, Piggyback 110 110 Tube Feeding 440 440 Free Water Flush 150 Output: Gastric Amount 30 Stomach 30 Other: # Voids Urine, Voided 1 # Bowel Movements 1 1 - Physical Exam Narrative Physical Exam (Free Text): 07/19/16 10:07 P/E: neck; No JVD Lungs: rt base, crackles Abdomen:slight distension, soft, BS +ce Ext: neuor: unresponsive Head: Positive for: Atraumatic, Normocephalic Pupils: Positive for: Non-Reactive Extroacular Muscles: Negative for: EOMI Conjunctiva: Negative for: Injected, Icteric Ears: Positive for: Normal Mouth: Positive for: Dry Pharnyx: Positive for: Normal Neck: Positive for: Other (Right IJ HD catheter site clean with no signs of erythema.) Respiratory/Chest: Positive for: Rhonchi, Tachypneic, Other (Patient on mechanical ventilation. B/L air entry present with occasional expiratory rhonchii. ). Negative for: Wheezes Cardiovascular: Positive for: Regular Rate and Rhythm. Negative for: Murmurs Abdomen: Positive for: Normal Bowel Sounds. Negative for: Tenderness, Distention Genitourinary Male: Positive for: Other (Right groin TLC site clean, dry, with no surrounding erythema. ) Upper Extremity: Positive for: Edema (B/L upper extremity edema Lt>Rt) Lower Extremity: Positive for: Edema (2+), Other (Lower extremity xeroform/YADIRA bandaging in place to upper calf. 2+ pitting edema noted above level of dressings.) Neurological: Positive for: Other (Unresponsive to verbal or painful stimuli. Pupils fixed. Corneal reflex present with occasional spontaneous blink. Mild gag reflex. Not moving extremities. ). Negative for: CN II-XII Intact Psychiatric: Negative for: Alert - Medications Active Medications: Active Medications Generic Name Dose Route Start Last Admin Trade Name Freq PRN Reason Stop Dose Admin Acetaminophen 650 mg 07/18/16 20:13 Tylenol 325mg Tab PO Q6 PRN Pain, moderate (4-7) Acetaminophen 650 mg 07/18/16 20:13 Tylenol 325mg Tab PO Q6 PRN Fever >100.4 F Albuterol/Ipratropium 3 ml 07/18/16 20:13 Duoneb 3 Mg/0.5 Mg (3 Ml) Ud INH RQ4 PRN Shortness of Breath Allopurinol 100 mg 07/19/16 09:00 Zyloprim PO DAILY [facility] Atorvastatin Calcium 80 mg 07/19/16 09:00 Lipitor PO DAILY [facility] Bismuth Subsalicylate 524 mg 07/18/16 20:13 Pepto-Bismol PO Q6H PRN Diarrhea Carvedilol 12.5 mg 07/19/16 09:00 Coreg PO BID [facility] Dextrose 0 ml 07/18/16 20:13 Dextrose 50% Inj IVP STAT PRN Hypoglycemia Protocol Protocol Ezetimibe 10 mg 07/18/16 22:00 07/18/16 22:34 Zetia PO 10 mg HS MARIA GUADALUPE Administration Ergocalciferol 1 cap 07/18/16 20:13 Drisdol 50,000 Intl Units Cap PO QWK [facility] Gabapentin 300 mg 07/19/16 09:00 Neurontin PO BID [facility] Glucagon 0 mg 07/18/16 20:13 Glucagen Diagnostic Kit IM STAT PRN Hypoglycemia Protocol Protocol Phenylephrine HCl 40 mg/ 504 mls @ 45.36 mls/hr 07/18/16 20:13 07/18/16 21:00 Sodium Chloride IV 60 mcg/min .Q11H7M [facility] GUADALUPE 45.36 mls/hr Protocol Administration 60 MCG/MIN Vancomycin HCl 1 gm/ Sodium 250 mls @ 166.667 mls/hr 07/20/16 10:00 Chloride IVPB Q72H [facility] GU[facility]ALU[facility] Piperacillin Sod/Tazobactam 100 mls @ 100 mls/hr 07/19/16 01:00 07/19/16 00: 57 Sod 2.25 gm/ Sodium Chloride IVPB 100 mls/hr Q8 [facility] GUADALUPE Administration Insulin Detemir 25 units 07/18/16 22:00 07/18/16 21:47 Levemir SC 25 units HS MARIA GUADALUPE Administration Insulin Human Regular 0 units 07/19/16 06:45 Humulin R SC ACHS [facility] Protocol Sevelamer Carbonate 0.8 gm 07/19/16 09:00 Renvela PO TID [facility] GUADALU[facility] Sitagliptin Phosphate 25 mg 07/19/16 09:00 Januvia PO DAILY [facility] Tamsulosin HCl 0.4 mg 07/19/16 09:00 Flomax PO DAILY [facility]ALU[facility] - Patient Studies Lab Studies: Microbiology Studies 07/14/16 10:00 Blood Culture - Preliminary Blood NO GROWTH AFTER 4 DAYS Lab Studies 07/19/16 07/19/16 07/19/16 Range/Units 05:30 05:30 05:03 WBC 22.1 H (4.8-10.8) K/uL RBC 3.31 L (4.40-5.90) Mil/uL Hgb 8.6 L (12.0-18.0) g/dL Hct 28.3 L (35.0-51.0) % MCV 85.5 (80.0-94.0) fl MCH 26.0 L (27.0-31.0) pg MCHC 30.4 L (33.0-37.0) g/dL RDW 18.6 H (11.5-14.5) % Plt Count 203 (130-400) K/uL pCO2 (35-45) mm/Hg pO2 (80-100) mm/Hg HCO3 (21-28) mmol/L ABG pH (7.35-7.45) ABG Total CO2 (22-28) mmol/L ABG O2 Saturation (95-98) % ABG O2 Content (15-23) ML/dL ABG Base Excess (-2.0-3.0) mmol/L ABG Hemoglobin (11.7-17.4) g/dL ABG Carboxyhemoglobin (0.5-1.5) % POC ABG HHb (Measured) (0.0-5.0) % ABG Methemoglobin (0.0-3.0) % ABG O2 Capacity (16-24) mL/dL Mason Test A-a O2 Difference mm/Hg Hgb O2 Saturation (95.0-98.0) % Vent Mode Mechanical Rate FiO2 % Tidal Volume PEEP Sodium 136 (132-148) mmol/l Potassium 3.9 (3.6-5.0) MMOL/L Chloride 104 (98-107) mmol/L Carbon Dioxide 24 (22-30) mmol/L Anion Gap 11 (10-20) BUN 71 H (9-20) mg/dl Creatinine 4.9 H (0.8-1.5) mg/dL Est GFR ( Amer) 14 Est GFR (Non-Af Amer) 11 POC Glucose (mg/dL) 367 H (65-110) mg/dL Random Glucose 330 H (75-110) mg/dL Calcium 7.4 L (8.4-10.2) mg/dL Total Bilirubin 0.8 (0.2-1.3) mg/dl AST 38 (17-59) U/L ALT 31 (21-72) U/L Alkaline Phosphatase 297 H (38-126) U/L Total Protein 6.1 L (6.3-8.2) G/DL Albumin 2.4 L (3.5-5.0) g/dL Globulin 3.7 (2.2-3.9) gm/dL Albumin/Globulin Ratio 0.6 L (1.0-2.1) 07/19/16 07/18/16 07/18/16 Range/Units 04:47 21:21 16:31 WBC (4.8-10.8) K/uL RBC (4.40-5.90) Mil/uL Hgb (12.0-18.0) g/dL Hct (35.0-51.0) % MCV (80.0-94.0) fl MCH (27.0-31.0) pg MCHC (33.0-37.0) g/dL RDW (11.5-14.5) % Plt Count (130-400) K/uL pCO2 47 H (35-45) mm/Hg pO2 148 H (80-100) mm/Hg HCO3 25.6 (21-28) mmol/L ABG pH 7.36 (7.35-7.45) ABG Total CO2 28.0 (22-28) mmol/L ABG O2 Saturation 99.6 H (95-98) % ABG O2 Content 13.1 L (15-23) ML/dL ABG Base Excess 0.8 (-2.0-3.0) mmol/L ABG Hemoglobin 9.4 L (11.7-17.4) g/dL ABG Carboxyhemoglobin 1.2 (0.5-1.5) % POC ABG HHb (Measured) 0.4 (0.0-5.0) % ABG Methemoglobin 1.4 (0.0-3.0) % ABG O2 Capacity 13.2 L (16-24) mL/dL Mason Test Yes A-a O2 Difference 150.0 mm/Hg Hgb O2 Saturation 96.9 (95.0-98.0) % Vent Mode A/c Mechanical Rate 14 FiO2 50.0 % Tidal Volume 500 PEEP 5 Sodium (132-148) mmol/l Potassium (3.6-5.0) MMOL/L Chloride (98-107) mmol/L Carbon Dioxide (22-30) mmol/L Anion Gap (10-20) BUN (9-20) mg/dl Creatinine (0.8-1.5) mg/dL Est GFR ( Amer) Est GFR (Non-Af Amer) POC Glucose (mg/dL) 311 H 312 H (65-110) mg/dL Random Glucose (75-110) mg/dL Calcium (8.4-10.2) mg/dL Total Bilirubin (0.2-1.3) mg/dl AST (17-59) U/L ALT (21-72) U/L Alkaline Phosphatase (38-126) U/L Total Protein (6.3-8.2) G/DL Albumin (3.5-5.0) g/dL Globulin (2.2-3.9) gm/dL Albumin/Globulin Ratio (1.0-2.1) 07/18/16 Range/Units 12:03 WBC (4.8-10.8) K/uL RBC (4.40-5.90) Mil/uL Hgb (12.0-18.0) g/dL Hct (35.0-51.0) % MCV (80.0-94.0) fl MCH (27.0-31.0) pg MCHC (33.0-37.0) g/dL RDW (11.5-14.5) % Plt Count (130-400) K/uL pCO2 (35-45) mm/Hg pO2 (80-100) mm/Hg HCO3 (21-28) mmol/L ABG pH (7.35-7.45) ABG Total CO2 (22-28) mmol/L ABG O2 Saturation (95-98) % ABG O2 Content (15-23) ML/dL ABG Base Excess (-2.0-3.0) mmol/L ABG Hemoglobin (11.7-17.4) g/dL ABG Carboxyhemoglobin (0.5-1.5) % POC ABG HHb (Measured) (0.0-5.0) % ABG Methemoglobin (0.0-3.0) % ABG O2 Capacity (16-24) mL/dL Mason Test A-a O2 Difference mm/Hg Hgb O2 Saturation (95.0-98.0) % Vent Mode Mechanical Rate FiO2 % Tidal Volume PEEP Sodium (132-148) mmol/l Potassium (3.6-5.0) MMOL/L Chloride (98-107) mmol/L Carbon Dioxide (22-30) mmol/L Anion Gap (10-20) BUN (9-20) mg/dl Creatinine (0.8-1.5) mg/dL Est GFR ( Amer) Est GFR (Non-Af Amer) POC Glucose (mg/dL) 264 H (65-110) mg/dL Random Glucose (75-110) mg/dL Calcium (8.4-10.2) mg/dL Total Bilirubin (0.2-1.3) mg/dl AST (17-59) U/L ALT (21-72) U/L Alkaline Phosphatase (38-126) U/L Total Protein (6.3-8.2) G/DL Albumin (3.5-5.0) g/dL Globulin (2.2-3.9) gm/dL Albumin/Globulin Ratio (1.0-2.1) Laboratory Results - last 24 hr 07/18/16 07/18/16 07/18/16 12:03 16:31 21:21 WBC RBC Hgb Hct MCV MCH MCHC RDW Plt Count pCO2 pO2 HCO3 ABG pH ABG Total CO2 ABG O2 Saturation ABG O2 Content ABG Base Excess ABG Hemoglobin ABG Carboxyhemoglobin POC ABG HHb (Measured) ABG Methemoglobin ABG O2 Capacity Mason Test A-a O2 Difference Hgb O2 Saturation Vent Mode Mechanical Rate FiO2 Tidal Volume PEEP Sodium Potassium Chloride Carbon Dioxide Anion Gap BUN Creatinine Est GFR ( Amer) Est GFR (Non-Af Amer) POC Glucose (mg/dL) 264 H 312 H 311 H Random Glucose Calcium Total Bilirubin AST ALT Alkaline Phosphatase Total Protein Albumin Globulin Albumin/Globulin Ratio 07/19/16 07/19/16 07/19/16 04:47 05:03 05:30 WBC 22.1 H RBC 3.31 L Hgb 8.6 L Hct 28.3 L MCV 85.5 MCH 26.0 L MCHC 30.4 L RDW 18.6 H Plt Count 203 pCO2 47 H pO2 148 H HCO3 25.6 ABG pH 7.36 ABG Total CO2 28.0 ABG O2 Saturation 99.6 H ABG O2 Content 13.1 L ABG Base Excess 0.8 ABG Hemoglobin 9.4 L ABG Carboxyhemoglobin 1.2 POC ABG HHb (Measured) 0.4 ABG Methemoglobin 1.4 ABG O2 Capacity 13.2 L Mason Test Yes A-a O2 Difference 150.0 Hgb O2 Saturation 96.9 Vent Mode A/c Mechanical Rate 14 FiO2 50.0 Tidal Volume 500 PEEP 5 Sodium Potassium Chloride Carbon Dioxide Anion Gap BUN Creatinine Est GFR ( Amer) Est GFR (Non-Af Amer) POC Glucose (mg/dL) 367 H Random Glucose Calcium Total Bilirubin AST ALT Alkaline Phosphatase Total Protein Albumin Globulin Albumin/Globulin Ratio 07/19/16 05:30 WBC RBC Hgb Hct MCV MCH MCHC RDW Plt Count pCO2 pO2 HCO3 ABG pH ABG Total CO2 ABG O2 Saturation ABG O2 Content ABG Base Excess ABG Hemoglobin ABG Carboxyhemoglobin POC ABG HHb (Measured) ABG Methemoglobin ABG O2 Capacity Mason Test A-a O2 Difference Hgb O2 Saturation Vent Mode Mechanical Rate FiO2 Tidal Volume PEEP Sodium 136 Potassium 3.9 Chloride 104 Carbon Dioxide 24 Anion Gap 11 BUN 71 H Creatinine 4.9 H Est GFR ( Amer) 14 Est GFR (Non-Af Amer) 11 POC Glucose (mg/dL) Random Glucose 330 H Calcium 7.4 L Total Bilirubin 0.8 AST 38 ALT 31 Alkaline Phosphatase 297 H Total Protein 6.1 L Albumin 2.4 L Globulin 3.7 Albumin/Globulin Ratio 0.6 L Fingerstick Blood Sugar Results: 367 Assessment/Plan - Assessment and Plan (Free Text) Assessment: Assessment: Cardiac Arrest: Hypotestion: sepsis, cardiac arrest Acute on chronic renal failure Sepsis: cholecystitis Anoxic brain Injury Plan: On neosynephrine On vent, continue , AC , Fio 0.60 VT 500 PEEP 5 Neuro;ogist following, will review EEG ID following: On Zosyn Nebulizors Tube feeding Pulm tiolet Dc IVF Reduce Neosynephrine, : will taper off, if possible Will discuss with family again about code status.
[2016-07-19] MEDS: Sevelamer Carb 0.8 gm/Packet PO SCH ×3 (10:21→16:50)
--- NOTE | 2016-07-19 11:03 | RAD ---
HISTORY: Re-Evaluate COMPARISON: 07/18/2016 FINDINGS: LUNGS: Right lung infiltrate and/or right effusion. PLEURA: See above CARDIOVASCULAR: Normal. OSSEOUS STRUCTURES: No significant abnormalities. VISUALIZED UPPER ABDOMEN: Normal. OTHER FINDINGS: Right Port-A-Cath in place. ETT above the chandrakant. NG tube the diaphragm. IMPRESSION: Right lung infiltrate and/or right effusion slightly improved from prior exam.
[2016-07-19 14:53] LABS: RBC URINE 10 /hpf (0-3); URINE BACTERIA FEW (<OCC); URINE BILIRUBIN NEGATIVE (NEGATIVE); URINE BLOOD SMALL (NEGATIVE); URINE COLOR AMBER (YELLOW); URINE GLUCOSE (UA) >=500 mg/dL (Normal); URINE KETONE NEGATIVE (NEGATIVE); URINE LEUKOCYTE ESTERASE NEG Leu/uL (Negative); URINE PROTEIN 30 mg/dL (NEGATIVE); URINE UROBILINOGEN 0.2-1.0 mg/dL (0.2-1.0); WBC URINE 14 /hpf (0-5)
--- NOTE | 2016-07-19 18:49 | CP.PCM.PN ---
Subjective - Date & Time of Evaluation Date of Evaluation: 07/19/16 Time of Evaluation: 18:47 - Subjective Subjective: on hd mwf overall condition poor k 3.6 hd on mon Objective - Vital Signs/Intake and Output Vital Signs (last 24 hours): Temp Pulse Resp BP Pulse Ox 100.7 F H 74 14 108/50 L 100 07/19/16 16:52 07/19/16 18:00 07/19/16 18:00 07/19/16 18:00 07/19/16 18:00 Intake and Output: 07/19/16 07/19/16 06:59 18:59 Intake Total 1552 2031 Output Total 30 100 Balance 1522 1931 - Medications Medications: Current Medications Acetaminophen (Tylenol 325mg Tab) 650 mg PO Q6 PRN PRN Reason: Pain, moderate (4-7) Last Admin: 07/19/16 16:52 Dose: 650 mg Acetaminophen (Tylenol 325mg Tab) 650 mg PO Q6 PRN PRN Reason: Fever >100.4 F Albuterol/Ipratropium (Duoneb 3 Mg/0.5 Mg (3 Ml) Ud) 3 ml INH RQ4 PRN PRN Reason: Shortness of Breath Allopurinol (Zyloprim) 100 mg PO DAILY [facility] Last Admin: 07/19/16 10:23 Dose: 100 mg Atorvastatin Calcium (Lipitor) 80 mg PO DAILY [facility] Last Admin: 07/19/16 10:19 Dose: 80 mg Bismuth Subsalicylate (Pepto-Bismol) 524 mg PO Q6H PRN PRN Reason: Diarrhea Carvedilol (Coreg) 12.5 mg PO BID [facility] Last Admin: 07/19/16 16:47 Dose: 12.5 mg Dextrose (Dextrose 50% Inj) 0 ml IVP STAT PRN; Protocol PRN Reason: Hypoglycemia Protocol Ezetimibe (Zetia) 10 mg PO HS [facility] Last Admin: 07/18/16 22:34 Dose: 10 mg Ergocalciferol (Drisdol 50,000 Intl Units Cap) 1 cap PO QWK [facility] Gabapentin (Neurontin) 300 mg PO BID [facility] Last Admin: 07/19/16 16:49 Dose: 300 mg Glucagon (Glucagen Diagnostic Kit) 0 mg IM STAT PRN; Protocol PRN Reason: Hypoglycemia Protocol Heparin Sodium (Porcine) (Heparin) 5,000 units SC Q12 [facility] PRN Reason: Protocol Phenylephrine HCl 40 mg/ (Sodium Chloride) 504 mls @ 45.36 mls/hr IV .Q11H7M [facility]; 60 MCG/MIN PRN Reason: Protocol Last Titration: 07/19/16 17:11 Dose: 20 mcg/min, 15.12 mls/hr Vancomycin HCl 1 gm/ Sodium (Chloride) 250 mls @ 166.667 mls/hr IVPB Q72H [facility] Piperacillin Sod/Tazobactam (Sod 2.25 gm/ Sodium Chloride) 100 mls @ 100 mls/ hr IVPB Q8 [facility] Last Admin: 07/19/16 16:55 Dose: 100 mls/hr Insulin Detemir (Levemir) 25 units SC HS [facility] Last Admin: 07/18/16 21:47 Dose: 25 units Insulin Human Regular (Humulin R) 0 units SC ACHS [facility] PRN Reason: Protocol Last Admin: 07/19/16 16:48 Dose: 8 units Pantoprazole Sodium (Protonix Inj) 40 mg IVP DAILY [facility] Sevelamer Carbonate (Renvela) 0.8 gm PO TID [facility] Last Admin: 07/19/16 16:50 Dose: 0.8 gm Sitagliptin Phosphate (Januvia) 25 mg PO DAILY [facility] Last Admin: 07/19/16 10:19 Dose: 25 mg Tamsulosin HCl (Flomax) 0.4 mg PO DAILY [facility] Last Admin: 07/19/16 10:18 Dose: 0.4 mg - Labs Labs: 07/19/16 05:30 07/19/16 05:30 PT 12.5 SECONDS (9.6-11.2) H 07/17/16 04:35 INR 1.20 (0.92-1.08) H 07/17/16 04:35 APTT 34.8 SECONDS (23.3-32.5) H 07/17/16 04:35 - Head Exam Head Exam: NORMAL INSPECTION - Eye Exam Eye Exam: Normal appearance - ENT Exam ENT Exam: Mucous Membranes Moist - Respiratory Exam Respiratory Exam: NORMAL BREATHING PATTERN - Cardiovascular Exam Cardiovascular Exam: REGULAR RHYTHM - Neurological Exam Neurological Exam: Altered - Skin Skin Exam: Dry, Warm
[2016-07-19] MEDS: Insulin Detemir 100 Units/ml Inj SC SCH (22:34)
[2016-07-20 05:47] LABS: ABG ALLEN TEST YES; ABG MECHANICAL RATE 14; ARTERIAL BLOOD GAS HCO3 23.9 mmol/L (21-28); ARTERIAL BLOOD GAS MODE PRVC/AC; ARTERIAL BLOOD GAS O2 CAPACITY 12.4 mL/dL (16-24); ARTERIAL BLOOD GAS O2 CONTENT 12.3 ML/dL (15-23); ARTERIAL BLOOD GAS PH 7.31 (7.35-7.45); ARTERIAL BLOOD GAS PO2 106 mm/Hg (80-100); ARTERIAL BLOOD HGB O2 SAT 95.7 % (95.0-98.0); ATERIAL BLOOD GAS PEEP 5; CARBOXYHEMOGLOBIN 1.2 % (0.5-1.5); HHB 1.2 % (0.0-5.0); METHEMOGLOBIN 1.9 % (0.0-3.0)
[2016-07-20 06:55] LABS: HEMATOCRIT 27.3 % (35.0-51.0); MEAN CELL VOLUME 86.5 fl (80.0-94.0); MEAN CORPUSCULAR HEMOGLOBIN 26.7 pg (27.0-31.0); MEAN CORPUSCULAR HGB CONC 30.9 g/dL (33.0-37.0); RED CELL DISTRIBUTION WIDTH 18.4 % (11.5-14.5); WHITE BLOOD COUNT 15.8 K/uL (4.8-10.8)
[2016-07-20 07:01] LABS: ALB/GLOB RATIO 0.6 (1.0-2.1); BILIRUBIN,TOTAL 0.8 mg/dl (0.2-1.3); CALCIUM 7.5 mg/dL (8.4-10.2); POTASSIUM 4.3 MMOL/L (3.6-5.0); TOTAL PROTEIN 6.4 G/DL (6.3-8.2)
[2016-07-20] MEDS: Insulin Regular 100 units/ml SC SCH ×4 (07:30→22:01)
--- NOTE | 2016-07-20 08:25 | PN ---
DATE: 07/20/2016 The patient seen and examined. Interim events noted. Consults noted, appreciated. [employer] Tractor Operator inte rvention noted and appreciated. Case discussed with candy supervisor. The patient remains in intensive c are unit on ventilator and is noncommunicative, not able to provide any informative history or review of systems. PHYSICAL EXAMINATION: GENERAL: The patient is orally intubated, on mechanical ventilation , tolerating current vent s etting without any distress, although patient did have episode of . VITAL SIGNS: Stable. HEART: S1, S2 normal, regular. LUNGS: Good bilateral air exchange. ABDOMEN: Soft, nontender. EXTREMITIES: The patient has chronic venous stasis. No acute ischemia, no calf swelling. CENTRAL NERVOUS SYSTEM: Essentially unchanged and patient patient is noncommunicative. DIAGNOSTIC DATA: Available reviewed. Telemetry monitoring does not reveal significant arrhythmia. Overall, patient's general condition is same. Long-term functional prognosis remains poor. PLAN: As ordered. Tang Solorio MD cc: [id number] TT: 07/20/2016 08:24:25 Confirmation # [id number] Dictation # [id number]
--- NOTE | 2016-07-20 08:29 | CP.CCUPN ---
CCU Subjective - Physician Review Events Since Last Encounter (Free Text): 07/20/16 08:26 Still unresponsive, not breathing over the vent, on MV Off pressors, CCU Objective - Vital Signs / Intake & Output Vital Signs (Last 4 hours): Vital Signs Pulse Resp BP Pulse Ox 07/20/16 06:00 75 16 109/55 L 100 Intake and Output (Last 8hrs): Intake & Output 07/19/16 07/20/16 07/20/16 22:59 06:59 14:59 Intake Total 1533 440 Balance 1533 440 Intake: IV 663 Intake, Piggyback 100 Tube Feeding 770 440 Other: # Bowel Movements 1 - Physical Exam Narrative Physical Exam (Free Text): 07/20/16 08:27 P/E neck: No JVD Lungs: decreased breath sounds in bases Abdomen distended, soft Ext: +2 edema , bilat heart; No gallop. Head: Positive for: Atraumatic, Normocephalic Pupils: Positive for: Non-Reactive Extroacular Muscles: Negative for: EOMI Conjunctiva: Negative for: Injected, Icteric Ears: Positive for: Normal Mouth: Positive for: Dry Pharnyx: Positive for: Normal Neck: Positive for: Other (Right IJ HD catheter site clean with no signs of erythema.) Respiratory/Chest: Positive for: Rhonchi, Tachypneic, Other (Patient on mechanical ventilation. B/L air entry present with occasional expiratory rhonchii. ). Negative for: Wheezes Cardiovascular: Positive for: Regular Rate and Rhythm. Negative for: Murmurs Abdomen: Positive for: Normal Bowel Sounds. Negative for: Tenderness, Distention Genitourinary Male: Positive for: Other (Right groin TLC site clean, dry, with no surrounding erythema. ) Upper Extremity: Positive for: Edema (B/L upper extremity edema Lt>Rt) Lower Extremity: Positive for: Edema (2+), Other (Lower extremity xeroform/YADIRA bandaging in place to upper calf. 2+ pitting edema noted above level of dressings.) Neurological: Positive for: Other (Unresponsive to verbal or painful stimuli. Pupils fixed. Corneal reflex present with occasional spontaneous blink. Mild gag reflex. Not moving extremities. ). Negative for: CN II-XII Intact Psychiatric: Negative for: Alert - Medications Active Medications: Active Medications Generic Name Dose Route Start Last Admin Trade Name Freq PRN Reason Stop Dose Admin Acetaminophen 650 mg 07/18/16 20:13 07/19/16 16:52 Tylenol 325mg Tab PO 650 mg Q6 PRN Administration Pain, moderate (4-7) Acetaminophen 650 mg 07/18/16 20:13 Tylenol 325mg Tab PO Q6 PRN Fever >100.4 F Albuterol/Ipratropium 3 ml 07/18/16 20:13 Duoneb 3 Mg/0.5 Mg (3 Ml) Ud INH RQ4 PRN Shortness of Breath Allopurinol 100 mg 07/19/16 09:00 07/19/16 10:23 Zyloprim PO 100 mg DAILY MARIA GUADALUPE Administration Atorvastatin Calcium 80 mg 07/19/16 09:00 07/19/16 10:19 Lipitor PO 80 mg DAILY MARIA GUADALUPE Administration Bismuth Subsalicylate 524 mg 07/18/16 20:13 Pepto-Bismol PO Q6H PRN Diarrhea Carvedilol 12.5 mg 07/19/16 09:00 07/19/16 16:47 Coreg PO 12.5 mg BID MARIA GUADALUPE Administration Dextrose 0 ml 07/18/16 20:13 Dextrose 50% Inj IVP STAT PRN Hypoglycemia Protocol Protocol Ezetimibe 10 mg 07/18/16 22:00 07/19/16 21:39 Zetia PO 10 mg HS MARIA GUADALUPE Administration Ergocalciferol 1 cap 07/18/16 20:13 Drisdol 50,000 Intl Units Cap PO QWK MARIA GUADALUPE Gabapentin 300 mg 07/19/16 09:00 07/19/16 16:49 Neurontin PO 300 mg BID MARIA GUADALUPE Administration Glucagon 0 mg 07/18/16 20:13 Glucagen Diagnostic Kit IM STAT PRN Hypoglycemia Protocol Protocol Heparin Sodium (Porcine) 5,000 units 07/19/16 21:00 07/19/16 21:39 Heparin SC 5,000 units Q12 MARIA GUADALUPE Administration Protocol Phenylephrine HCl 40 mg/ 504 mls @ 45.36 mls/hr 07/18/16 20:13 07/19/16 22:29 Sodium Chloride IV 10 mcg/min .Q11H7M MARIA GUADALUPE 7.56 mls/hr Protocol Titration 60 MCG/MIN Vancomycin HCl 1 gm/ Sodium 250 mls @ 166.667 mls/hr 07/20/16 10:00 Chloride IVPB Q72H MARIA GUADALUPE Piperacillin Sod/Tazobactam 100 mls @ 100 mls/hr 07/19/16 01:00 07/20/16 02: 04 Sod 2.25 gm/ Sodium Chloride IVPB 100 mls/hr Q8 MARIA GUADALUPE Administration Insulin Detemir 25 units 07/18/16 22:00 07/19/16 22:34 Levemir SC 25 units HS MARIA GUADALUPE Administration Insulin Human Regular 0 units 07/19/16 06:45 07/19/16 22:35 Humulin R SC 2 units ACHS MARIA GUADALUPE Administration Protocol Pantoprazole Sodium 40 mg 07/20/16 09:00 Protonix Inj IVP DAILY MARIA GUADALUPE Sevelamer Carbonate 0.8 gm 07/19/16 09:00 07/19/16 16:50 Renvela PO 0.8 gm TID MARIA GUADALUPE Administration Sitagliptin Phosphate 25 mg 07/19/16 09:00 07/19/16 10:19 Januvia PO 25 mg DAILY MARIA GUADALUPE Administration Tamsulosin HCl 0.4 mg 07/19/16 09:00 07/19/16 10:18 Flomax PO 0.4 mg DAILY MARIA GUADALUPE Administration - Patient Studies Lab Studies: Microbiology Studies 07/14/16 10:00 Blood Culture - Final Blood NO GROWTH AFTER 5 DAYS Gram Stain - Final TEST NOT PERFORMED Lab Studies 07/20/16 07/20/16 07/20/16 Range/Units 05:51 05:34 05:30 WBC (4.8-10.8) K/uL RBC (4.40-5.90) Mil/uL Hgb (12.0-18.0) g/dL Hct (35.0-51.0) % MCV (80.0-94.0) fl MCH (27.0-31.0) pg MCHC (33.0-37.0) g/dL RDW (11.5-14.5) % Plt Count (130-400) K/uL pCO2 50 H (35-45) mm/Hg pO2 106 H (80-100) mm/Hg HCO3 23.9 (21-28) mmol/L ABG pH 7.31 L (7.35-7.45) ABG Total CO2 26.7 (22-28) mmol/L ABG O2 Saturation 98.8 H (95-98) % ABG O2 Content 12.3 L (15-23) ML/dL ABG Base Excess -1.3 (-2.0-3.0) mmol/L ABG Hemoglobin 9.0 L (11.7-17.4) g/dL ABG Carboxyhemoglobin 1.2 (0.5-1.5) % POC ABG HHb (Measured) 1.2 (0.0-5.0) % ABG Methemoglobin 1.9 (0.0-3.0) % ABG O2 Capacity 12.4 L (16-24) mL/dL Mason Test Yes A-a O2 Difference 188.0 mm/Hg Hgb O2 Saturation 95.7 (95.0-98.0) % Vent Mode Prvc/ac Mechanical Rate 14 FiO2 50.0 % Tidal Volume 500 PEEP 5 Sodium 138 (132-148) mmol/l Potassium 4.3 (3.6-5.0) MMOL/L Chloride 104 (98-107) mmol/L Carbon Dioxide 24 (22-30) mmol/L Anion Gap 15 (10-20) BUN 90 H (9-20) mg/dl Creatinine 6.1 H (0.8-1.5) mg/dL Est GFR ( Amer) 11 Est GFR (Non-Af Amer) 9 POC Glucose (mg/dL) 337 H (65-110) mg/dL Random Glucose 368 H (75-110) mg/dL Calcium 7.5 L (8.4-10.2) mg/dL Total Bilirubin 0.8 (0.2-1.3) mg/dl AST 38 (17-59) U/L ALT 36 (21-72) U/L Alkaline Phosphatase 307 H (38-126) U/L Total Protein 6.4 (6.3-8.2) G/DL Albumin 2.5 L (3.5-5.0) g/dL Globulin 3.9 (2.2-3.9) gm/dL Albumin/Globulin Ratio 0.6 L (1.0-2.1) Urine Color (YELLOW) Urine Clarity (Clear) Urine pH (5.0-8.0) Ur Specific [place] (1.003-1.030) Urine Protein (NEGATIVE) mg/dL Urine Glucose (UA) (Normal) mg/dL Urine Ketones (NEGATIVE) mg/dL Urine Blood (NEGATIVE) Urine Nitrate (NEGATIVE) Urine Bilirubin (NEGATIVE) Urine Urobilinogen (0.2-1.0) mg/dL Ur Leukocyte Esterase (Negative) Sun/uL Urine RBC (Auto) (0-3) /hpf Urine Microscopic WBC (0-5) /hpf Ur Squamous Epith Cells (0-5) /hpf Urine Bacteria (<OCC) Urine Yeast (Budding) (NEGATIVE) /hpf Random Vancomycin ug/mL C. difficile Ag & Toxin (NEGATIVE) 07/20/16 07/19/16 07/19/16 Range/Units 05:30 22:03 15:27 WBC 15.8 H (4.8-10.8) K/uL RBC 3.15 L (4.40-5.90) Mil/uL Hgb 8.4 L (12.0-18.0) g/dL Hct 27.3 L (35.0-51.0) % MCV 86.5 (80.0-94.0) fl MCH 26.7 L (27.0-31.0) pg MCHC 30.9 L (33.0-37.0) g/dL RDW 18.4 H (11.5-14.5) % Plt Count 228 (130-400) K/uL pCO2 (35-45) mm/Hg pO2 (80-100) mm/Hg HCO3 (21-28) mmol/L ABG pH (7.35-7.45) ABG Total CO2 (22-28) mmol/L ABG O2 Saturation (95-98) % ABG O2 Content (15-23) ML/dL ABG Base Excess (-2.0-3.0) mmol/L ABG Hemoglobin (11.7-17.4) g/dL ABG Carboxyhemoglobin (0.5-1.5) % POC ABG HHb (Measured) (0.0-5.0) % ABG Methemoglobin (0.0-3.0) % ABG O2 Capacity (16-24) mL/dL Mason Test A-a O2 Difference mm/Hg Hgb O2 Saturation (95.0-98.0) % Vent Mode Mechanical Rate FiO2 % Tidal Volume PEEP Sodium (132-148) mmol/l Potassium (3.6-5.0) MMOL/L Chloride (98-107) mmol/L Carbon Dioxide (22-30) mmol/L Anion Gap (10-20) BUN (9-20) mg/dl Creatinine (0.8-1.5) mg/dL Est GFR ( Amer) Est GFR (Non-Af Amer) POC Glucose (mg/dL) 322 H 343 H (65-110) mg/dL Random Glucose (75-110) mg/dL Calcium (8.4-10.2) mg/dL Total Bilirubin (0.2-1.3) mg/dl AST (17-59) U/L ALT (21-72) U/L Alkaline Phosphatase (38-126) U/L Total Protein (6.3-8.2) G/DL Albumin (3.5-5.0) g/dL Globulin (2.2-3.9) gm/dL Albumin/Globulin Ratio (1.0-2.1) Urine Color (YELLOW) Urine Clarity (Clear) Urine pH (5.0-8.0) Ur Specific [place] (1.003-1.030) Urine Protein (NEGATIVE) mg/dL Urine Glucose (UA) (Normal) mg/dL Urine Ketones (NEGATIVE) mg/dL Urine Blood (NEGATIVE) Urine Nitrate (NEGATIVE) Urine Bilirubin (NEGATIVE) Urine Urobilinogen (0.2-1.0) mg/dL Ur Leukocyte Esterase (Negative) Sun/uL Urine RBC (Auto) (0-3) /hpf Urine Microscopic WBC (0-5) /hpf Ur Squamous Epith Cells (0-5) /hpf Urine Bacteria (<OCC) Urine Yeast (Budding) (NEGATIVE) /hpf Random Vancomycin ug/mL C. difficile Ag & Toxin (NEGATIVE) 07/19/16 07/19/16 07/19/16 Range/Units 14:14 11:12 05:30 WBC (4.8-10.8) K/uL RBC (4.40-5.90) Mil/uL Hgb (12.0-18.0) g/dL Hct (35.0-51.0) % MCV (80.0-94.0) fl MCH (27.0-31.0) pg MCHC (33.0-37.0) g/dL RDW (11.5-14.5) % Plt Count (130-400) K/uL pCO2 (35-45) mm/Hg pO2 (80-100) mm/Hg HCO3 (21-28) mmol/L ABG pH (7.35-7.45) ABG Total CO2 (22-28) mmol/L ABG O2 Saturation (95-98) % ABG O2 Content (15-23) ML/dL ABG Base Excess (-2.0-3.0) mmol/L ABG Hemoglobin (11.7-17.4) g/dL ABG Carboxyhemoglobin (0.5-1.5) % POC ABG HHb (Measured) (0.0-5.0) % ABG Methemoglobin (0.0-3.0) % ABG O2 Capacity (16-24) mL/dL Mason Test A-a O2 Difference mm/Hg Hgb O2 Saturation (95.0-98.0) % Vent Mode Mechanical Rate FiO2 % Tidal Volume PEEP Sodium (132-148) mmol/l Potassium (3.6-5.0) MMOL/L Chloride (98-107) mmol/L Carbon Dioxide (22-30) mmol/L Anion Gap (10-20) BUN (9-20) mg/dl Creatinine (0.8-1.5) mg/dL Est GFR ( Amer) Est GFR (Non-Af Amer) POC Glucose (mg/dL) 364 H (65-110) mg/dL Random Glucose (75-110) mg/dL Calcium (8.4-10.2) mg/dL Total Bilirubin (0.2-1.3) mg/dl AST (17-59) U/L ALT (21-72) U/L Alkaline Phosphatase (38-126) U/L Total Protein (6.3-8.2) G/DL Albumin (3.5-5.0) g/dL Globulin (2.2-3.9) gm/dL Albumin/Globulin Ratio (1.0-2.1) Urine Color Kary (YELLOW) Urine Clarity Cloudy (Clear) Urine pH 5.0 (5.0-8.0) Ur Specific [place] 1.016 (1.003-1.030) Urine Protein 30 (NEGATIVE) mg/dL Urine Glucose (UA) >=500 (Normal) mg/dL Urine Ketones Negative (NEGATIVE) mg/dL Urine Blood Small (NEGATIVE) Urine Nitrate Negative (NEGATIVE) Urine Bilirubin Negative (NEGATIVE) Urine Urobilinogen 0.2-1.0 (0.2-1.0) mg/dL Ur Leukocyte Esterase Neg (Negative) Sun/uL Urine RBC (Auto) 10 H (0-3) /hpf Urine Microscopic WBC 14 H (0-5) /hpf Ur Squamous Epith Cells < 1 (0-5) /hpf Urine Bacteria Few H (<OCC) Urine Yeast (Budding) Mod H (NEGATIVE) /hpf Random Vancomycin 21.5 ug/mL C. difficile Ag & Toxin (NEGATIVE) 07/18/16 Range/Units 18:20 WBC (4.8-10.8) K/uL RBC (4.40-5.90) Mil/uL Hgb (12.0-18.0) g/dL Hct (35.0-51.0) % MCV (80.0-94.0) fl MCH (27.0-31.0) pg MCHC (33.0-37.0) g/dL RDW (11.5-14.5) % Plt Count (130-400) K/uL pCO2 (35-45) mm/Hg pO2 (80-100) mm/Hg HCO3 (21-28) mmol/L ABG pH (7.35-7.45) ABG Total CO2 (22-28) mmol/L ABG O2 Saturation (95-98) % ABG O2 Content (15-23) ML/dL ABG Base Excess (-2.0-3.0) mmol/L ABG Hemoglobin (11.7-17.4) g/dL ABG Carboxyhemoglobin (0.5-1.5) % POC ABG HHb (Measured) (0.0-5.0) % ABG Methemoglobin (0.0-3.0) % ABG O2 Capacity (16-24) mL/dL Mason Test A-a O2 Difference mm/Hg Hgb O2 Saturation (95.0-98.0) % Vent Mode Mechanical Rate FiO2 % Tidal Volume PEEP Sodium (132-148) mmol/l Potassium (3.6-5.0) MMOL/L Chloride (98-107) mmol/L Carbon Dioxide (22-30) mmol/L Anion Gap (10-20) BUN (9-20) mg/dl Creatinine (0.8-1.5) mg/dL Est GFR ( Amer) Est GFR (Non-Af Amer) POC Glucose (mg/dL) (65-110) mg/dL Random Glucose (75-110) mg/dL Calcium (8.4-10.2) mg/dL Total Bilirubin (0.2-1.3) mg/dl AST (17-59) U/L ALT (21-72) U/L Alkaline Phosphatase (38-126) U/L Total Protein (6.3-8.2) G/DL Albumin (3.5-5.0) g/dL Globulin (2.2-3.9) gm/dL Albumin/Globulin Ratio (1.0-2.1) Urine Color (YELLOW) Urine Clarity (Clear) Urine pH (5.0-8.0) Ur Specific [place] (1.003-1.030) Urine Protein (NEGATIVE) mg/dL Urine Glucose (UA) (Normal) mg/dL Urine Ketones (NEGATIVE) mg/dL Urine Blood (NEGATIVE) Urine Nitrate (NEGATIVE) Urine Bilirubin (NEGATIVE) Urine Urobilinogen (0.2-1.0) mg/dL Ur Leukocyte Esterase (Negative) Sun/uL Urine RBC (Auto) (0-3) /hpf Urine Microscopic WBC (0-5) /hpf Ur Squamous Epith Cells (0-5) /hpf Urine Bacteria (<OCC) Urine Yeast (Budding) (NEGATIVE) /hpf Random Vancomycin ug/mL C. difficile Ag & Toxin Negative (NEGATIVE) Laboratory Results - last 24 hr 07/18/16 07/19/16 07/19/16 18:20 05:30 11:12 WBC RBC Hgb Hct MCV MCH MCHC RDW Plt Count pCO2 pO2 HCO3 ABG pH ABG Total CO2 ABG O2 Saturation ABG O2 Content ABG Base Excess ABG Hemoglobin ABG Carboxyhemoglobin POC ABG HHb (Measured) ABG Methemoglobin ABG O2 Capacity Mason Test A-a O2 Difference Hgb O2 Saturation Vent Mode Mechanical Rate FiO2 Tidal Volume PEEP Sodium Potassium Chloride Carbon Dioxide Anion Gap BUN Creatinine Est GFR ( Amer) Est GFR (Non-Af Amer) POC Glucose (mg/dL) 364 H Random Glucose Calcium Total Bilirubin AST ALT Alkaline Phosphatase Total Protein Albumin Globulin Albumin/Globulin Ratio Urine Color Urine Clarity Urine pH Ur Specific [place] Urine Protein Urine Glucose (UA) Urine Ketones Urine Blood Urine Nitrate Urine Bilirubin Urine Urobilinogen Ur Leukocyte Esterase Urine RBC (Auto) Urine Microscopic WBC Ur Squamous Epith Cells Urine Bacteria Urine Yeast (Budding) Random Vancomycin 21.5 C. difficile Ag & Toxin Negative 07/19/16 07/19/16 07/19/16 14:14 15:27 22:03 WBC RBC Hgb Hct MCV MCH MCHC RDW Plt Count pCO2 pO2 HCO3 ABG pH ABG Total CO2 ABG O2 Saturation ABG O2 Content ABG Base Excess ABG Hemoglobin ABG Carboxyhemoglobin POC ABG HHb (Measured) ABG Methemoglobin ABG O2 Capacity Mason Test A-a O2 Difference Hgb O2 Saturation Vent Mode Mechanical Rate FiO2 Tidal Volume PEEP Sodium Potassium Chloride Carbon Dioxide Anion Gap BUN Creatinine Est GFR ( Amer) Est GFR (Non-Af Amer) POC Glucose (mg/dL) 343 H 322 H Random Glucose Calcium Total Bilirubin AST ALT Alkaline Phosphatase Total Protein Albumin Globulin Albumin/Globulin Ratio Urine Color Kary Urine Clarity Cloudy Urine pH 5.0 Ur Specific [place] 1.016 Urine Protein 30 Urine Glucose (UA) >=500 Urine Ketones Negative Urine Blood Small Urine Nitrate Negative Urine Bilirubin Negative Urine Urobilinogen 0.2-1.0 Ur Leukocyte Esterase Neg Urine RBC (Auto) 10 H Urine Microscopic WBC 14 H Ur Squamous Epith Cells < 1 Urine Bacteria Few H Urine Yeast (Budding) Mod H Random Vancomycin C. difficile Ag & Toxin 07/20/16 07/20/16 07/20/16 05:30 05:30 05:34 WBC 15.8 H RBC 3.15 L Hgb 8.4 L Hct 27.3 L MCV 86.5 MCH 26.7 L MCHC 30.9 L RDW 18.4 H Plt Count 228 pCO2 50 H pO2 106 H HCO3 23.9 ABG pH 7.31 L ABG Total CO2 26.7 ABG O2 Saturation 98.8 H ABG O2 Content 12.3 L ABG Base Excess -1.3 ABG Hemoglobin 9.0 L ABG Carboxyhemoglobin 1.2 POC ABG HHb (Measured) 1.2 ABG Methemoglobin 1.9 ABG O2 Capacity 12.4 L Mason Test Yes A-a O2 Difference 188.0 Hgb O2 Saturation 95.7 Vent Mode Prvc/ac Mechanical Rate 14 FiO2 50.0 Tidal Volume 500 PEEP 5 Sodium 138 Potassium 4.3 Chloride 104 Carbon Dioxide 24 Anion Gap 15 BUN 90 H Creatinine 6.1 H Est GFR ( Amer) 11 Est GFR (Non-Af Amer) 9 POC Glucose (mg/dL) Random Glucose 368 H Calcium 7.5 L Total Bilirubin 0.8 AST 38 ALT 36 Alkaline Phosphatase 307 H Total Protein 6.4 Albumin 2.5 L Globulin 3.9 Albumin/Globulin Ratio 0.6 L Urine Color Urine Clarity Urine pH Ur Specific [place] Urine Protein Urine Glucose (UA) Urine Ketones Urine Blood Urine Nitrate Urine Bilirubin Urine Urobilinogen Ur Leukocyte Esterase Urine RBC (Auto) Urine Microscopic WBC Ur Squamous Epith Cells Urine Bacteria Urine Yeast (Budding) Random Vancomycin C. difficile Ag & Toxin 07/20/16 05:51 WBC RBC Hgb Hct MCV MCH MCHC RDW Plt Count pCO2 pO2 HCO3 ABG pH ABG Total CO2 ABG O2 Saturation ABG O2 Content ABG Base Excess ABG Hemoglobin ABG Carboxyhemoglobin POC ABG HHb (Measured) ABG Methemoglobin ABG O2 Capacity Mason Test A-a O2 Difference Hgb O2 Saturation Vent Mode Mechanical Rate FiO2 Tidal Volume PEEP Sodium Potassium Chloride Carbon Dioxide Anion Gap BUN Creatinine Est GFR ( Amer) Est GFR (Non-Af Amer) POC Glucose (mg/dL) 337 H Random Glucose Calcium Total Bilirubin AST ALT Alkaline Phosphatase Total Protein Albumin Globulin Albumin/Globulin Ratio Urine Color Urine Clarity Urine pH Ur Specific [place] Urine Protein Urine Glucose (UA) Urine Ketones Urine Blood Urine Nitrate Urine Bilirubin Urine Urobilinogen Ur Leukocyte Esterase Urine RBC (Auto) Urine Microscopic WBC Ur Squamous Epith Cells Urine Bacteria Urine Yeast (Budding) Random Vancomycin C. difficile Ag & Toxin Fingerstick Blood Sugar Results: 322 Assessment/Plan - Assessment and Plan (Free Text) Assessment: Assessment: Assessment: Cardiac Arrest: Hypotestion: sepsis, cardiac arrest : BP better, off pressors Acute on chronic renal failure: On HD Sepsis: cholecystitis Anoxic brain Injury Plan: Off pressors now On vent, has resp acidosis and hypercapnic, increased rate to 18 , AC , Fio 0.60 VT 500 PEEP 5 Neurogist following, will review EEG ID following: On Zosyn Nebulizors Tube feeding Pulm tiolet DC Neosynephrine, Will discuss with family again about code status.
--- NOTE | 2016-07-20 09:17 | RAD ---
PROCEDURE: HISTORY: Intubated. COMPARISON: 07/19/2016 TECHNIQUE: FINDINGS: Tubes and catheters unchanged. Improvement in right lung infiltrate and effusion. IMPRESSION: As above.
[2016-07-20] MEDS: Sevelamer Carb 0.8 gm/Packet PO SCH ×3 (09:46→16:27)
--- NOTE | 2016-07-20 12:33 | CP.PCM.PN ---
Subjective - Date & Time of Evaluation Date of Evaluation: 07/20/16 Time of Evaluation: 07:00 - Subjective Subjective: unresponsive on vent likely anoxic encephalopathy repeat cultures neg thus far IV antibiotics renewed Objective - Vital Signs/Intake and Output Vital Signs (last 24 hours): Temp Pulse Resp BP Pulse Ox 99.5 F 74 15 111/57 L 100 07/20/16 08:00 07/20/16 09:44 07/20/16 08:00 07/20/16 09:44 07/20/16 08:00 Intake and Output: 07/20/16 07/20/16 06:59 18:59 Intake Total 600 Balance 600 - Medications Medications: Current Medications Acetaminophen (Tylenol 325mg Tab) 650 mg PO Q6 PRN PRN Reason: Pain, moderate (4-7) Last Admin: 07/19/16 16:52 Dose: 650 mg Acetaminophen (Tylenol 325mg Tab) 650 mg PO Q6 PRN PRN Reason: Fever >100.4 F Albuterol/Ipratropium (Duoneb 3 Mg/0.5 Mg (3 Ml) Ud) 3 ml INH RQ4 PRN PRN Reason: Shortness of Breath Allopurinol (Zyloprim) 100 mg PO DAILY [facility] Last Admin: 07/20/16 09:47 Dose: 100 mg Atorvastatin Calcium (Lipitor) 80 mg PO DAILY [facility] Last Admin: 07/20/16 09:46 Dose: 80 mg Bismuth Subsalicylate (Pepto-Bismol) 524 mg PO Q6H PRN PRN Reason: Diarrhea Carvedilol (Coreg) 12.5 mg PO BID [facility] Last Admin: 07/20/16 09:44 Dose: 12.5 mg Dextrose (Dextrose 50% Inj) 0 ml IVP STAT PRN; Protocol PRN Reason: Hypoglycemia Protocol Ezetimibe (Zetia) 10 mg PO HS [facility] Last Admin: 07/19/16 21:39 Dose: 10 mg Ergocalciferol (Drisdol 50,000 Intl Units Cap) 1 cap PO QWK [facility] Gabapentin (Neurontin) 300 mg PO BID [facility] Last Admin: 07/20/16 09:46 Dose: 300 mg Glucagon (Glucagen Diagnostic Kit) 0 mg IM STAT PRN; Protocol PRN Reason: Hypoglycemia Protocol Heparin Sodium (Porcine) (Heparin) 5,000 units SC Q12 [facility]ADALU[facility] PRN Reason: Protocol Last Admin: 07/20/16 09:45 Dose: 5,000 units Phenylephrine HCl 40 mg/ (Sodium Chloride) 504 mls @ 45.36 mls/hr IV .Q11H7M MARIA GUADALUPE; 60 MCG/MIN PRN Reason: Protocol Last Titration: 07/19/16 22:29 Dose: 10 mcg/min, 7.56 mls/hr Vancomycin HCl 1 gm/ Sodium (Chloride) 250 mls @ 166.667 mls/hr IVPB Q72H [facility] Last Admin: 07/20/16 09:48 Dose: 166.667 mls/hr Piperacillin Sod/Tazobactam (Sod 2.25 gm/ Sodium Chloride) 100 mls @ 100 mls/ hr IVPB Q8 [facility] Last Admin: 07/20/16 09:47 Dose: 100 mls/hr Insulin Detemir (Levemir) 25 units SC HS [facility] Last Admin: 07/19/16 22:34 Dose: 25 units Insulin Human Regular (Humulin R) 0 units SC ACHS [facility]IA GUADALUPE PRN Reason: Protocol Last Admin: 07/19/16 22:35 Dose: 2 units Pantoprazole Sodium (Protonix Inj) 40 mg IVP DAILY [facility] Last Admin: 07/20/16 09:51 Dose: 40 mg Sevelamer Carbonate (Renvela) 0.8 gm PO TID [facility] Last Admin: 07/20/16 09:46 Dose: 0.8 gm Sitagliptin Phosphate (Januvia) 25 mg PO DAILY [facility] Last Admin: 07/20/16 09:45 Dose: 25 mg Tamsulosin HCl (Flomax) 0.4 mg PO DAILY [facility] Last Admin: 07/20/16 09:45 Dose: 0.4 mg - Labs Labs: 07/20/16 05:30 07/20/16 05:30 PT 12.5 SECONDS (9.6-11.2) H 07/17/16 04:35 INR 1.20 (0.92-1.08) H 07/17/16 04:35 APTT 34.8 SECONDS (23.3-32.5) H 07/17/16 04:35 - Constitutional Appears: Non-toxic, Cachectic - Head Exam Head Exam: NORMOCEPHALIC - Eye Exam Eye Exam: absent: Scleral icterus - ENT Exam ENT Exam: Mucous Membranes Dry - Neck Exam Neck Exam: absent: Lymphadenopathy - Respiratory Exam Respiratory Exam: Decreased Breath Sounds, Rhonchi - Cardiovascular Exam Cardiovascular Exam: REGULAR RHYTHM - GI/Abdominal Exam GI & Abdominal Exam: Distended, Soft - Rectal Exam Rectal Exam: Deferred - Exam Exam: NORMAL INSPECTION - Extremities Exam Extremities Exam: Pedal Edema. absent: Calf Tenderness - Back Exam Back Exam: absent: CVA tenderness (L), CVA tenderness (R) - Neurological Exam Neurological Exam: Altered Assessment and Plan (1) Acute kidney failure Status: Acute (2) Cellulitis of right lower extremity Status: Acute (3) Bacteremia Status: Acute (4) Bacteremia Status: Acute - Assessment and Plan (Free Text) Assessment: s/p sepsis/ septic shock/ bacteremia/ resp failure r/o endocarditis anoxic encephalopathy poor prognosis
[2016-07-20] MEDS: Insulin Detemir 100 Units/ml Inj SC SCH (22:01)
[2016-07-21 05:10] LABS: MEAN CELL VOLUME 86.1 fl (80.0-94.0); MEAN CORPUSCULAR HEMOGLOBIN 26.2 pg (27.0-31.0); MEAN CORPUSCULAR HGB CONC 30.4 g/dL (33.0-37.0); RED CELL DISTRIBUTION WIDTH 18.6 % (11.5-14.5); WHITE BLOOD COUNT 14.9 K/uL (4.8-10.8)
[2016-07-21 05:23] LABS: ALB/GLOB RATIO 0.6 (1.0-2.1); BILIRUBIN,TOTAL 0.7 mg/dl (0.2-1.3); CALCIUM 7.7 mg/dL (8.4-10.2); POTASSIUM 4.8 MMOL/L (3.6-5.0); TOTAL PROTEIN 6.5 G/DL (6.3-8.2)
[2016-07-21 05:39] LABS: ABG ALLEN TEST YES; ABG MECHANICAL RATE 14; ARTERIAL BLOOD GAS HCO3 23.9 mmol/L (21-28); ARTERIAL BLOOD GAS MODE PRVC/AC; ARTERIAL BLOOD GAS PH 7.35 (7.35-7.45); ARTERIAL BLOOD GAS PO2 134 mm/Hg (80-100); ARTERIAL BLOOD HGB O2 SAT 96.9 % (95.0-98.0); ATERIAL BLOOD GAS PEEP 5; CARBOXYHEMOGLOBIN 1.3 % (0.5-1.5); HHB 0.4 % (0.0-5.0); METHEMOGLOBIN 1.5 % (0.0-3.0)
[2016-07-21] MEDS: Insulin Regular 100 units/ml SC SCH ×5 (06:33→23:37)
--- NOTE | 2016-07-21 07:15 | CP.PCM.PN ---
Objective - Vital Signs/Intake and Output Vital Signs (last 24 hours): Temp Pulse Resp BP Pulse Ox 99.1 F 82 16 109/58 L 99 07/21/16 04:00 07/21/16 06:00 07/21/16 06:00 07/21/16 06:00 07/21/16 06:00 Intake and Output: 07/21/16 07/21/16 06:59 18:59 Intake Total 660 Balance 660 - Medications Medications: Current Medications Acetaminophen (Tylenol 325mg Tab) 650 mg PO Q6 PRN PRN Reason: Pain, moderate (4-7) Last Admin: 07/19/16 16:52 Dose: 650 mg Acetaminophen (Tylenol 325mg Tab) 650 mg PO Q6 PRN PRN Reason: Fever >100.4 F Albuterol/Ipratropium (Duoneb 3 Mg/0.5 Mg (3 Ml) Ud) 3 ml INH RQ4 PRN PRN Reason: Shortness of Breath Allopurinol (Zyloprim) 100 mg PO DAILY [facility] Last Admin: 07/20/16 09:47 Dose: 100 mg Atorvastatin Calcium (Lipitor) 80 mg PO DAILY [facility] Last Admin: 07/20/16 09:46 Dose: 80 mg Bismuth Subsalicylate (Pepto-Bismol) 524 mg PO Q6H PRN PRN Reason: Diarrhea Carvedilol (Coreg) 12.5 mg PO BID [facility] Last Admin: 07/20/16 16:23 Dose: 12.5 mg Dextrose (Dextrose 50% Inj) 0 ml IVP STAT PRN; Protocol PRN Reason: Hypoglycemia Protocol Ezetimibe (Zetia) 10 mg PO HS [facility] Last Admin: 07/20/16 21:41 Dose: 10 mg Ergocalciferol (Drisdol 50,000 Intl Units Cap) 1 cap PO QWK [facility] Gabapentin (Neurontin) 300 mg PO BID [facility] Last Admin: 07/20/16 16:26 Dose: 300 mg Glucagon (Glucagen Diagnostic Kit) 0 mg IM STAT PRN; Protocol PRN Reason: Hypoglycemia Protocol Heparin Sodium (Porcine) (Heparin) 5,000 units SC Q12 [facility] PRN Reason: Protocol Last Admin: 07/20/16 21:41 Dose: 5,000 units Phenylephrine HCl 40 mg/ (Sodium Chloride) 504 mls @ 45.36 mls/hr IV .Q11H7M [facility] GU[facility]ALU[facility]; 60 MCG/MIN PRN Reason: Protocol Last Titration: 07/19/16 22:29 Dose: 10 mcg/min, 7.56 mls/hr Vancomycin HCl 1 gm/ Sodium (Chloride) 250 mls @ 166.667 mls/hr IVPB Q72H [facility] Last Admin: 07/20/16 09:48 Dose: 166.667 mls/hr Piperacillin Sod/Tazobactam (Sod 2.25 gm/ Sodium Chloride) 100 mls @ 100 mls/ hr IVPB Q8 [facility] Last Admin: 07/21/16 00:55 Dose: 100 mls/hr Insulin Detemir (Levemir) 25 units SC HS [facility] Last Admin: 07/20/16 22:01 Dose: 25 units Insulin Human Regular (Humulin R) 0 units SC ACHS [facility] PRN Reason: Protocol Last Admin: 07/21/16 06:33 Dose: 8 units Pantoprazole Sodium (Protonix Inj) 40 mg IVP DAILY [facility] Last Admin: 07/20/16 09:51 Dose: 40 mg Sevelamer Carbonate (Renvela) 0.8 gm PO TID [facility] Last Admin: 07/20/16 16:27 Dose: 0.8 gm Sitagliptin Phosphate (Januvia) 25 mg PO DAILY [facility] Last Admin: 07/20/16 09:45 Dose: 25 mg Tamsulosin HCl (Flomax) 0.4 mg PO DAILY [facility] Last Admin: 07/20/16 09:45 Dose: 0.4 mg - Labs Labs: 07/21/16 04:20 07/21/16 04:20 PT 12.5 SECONDS (9.6-11.2) H 07/17/16 04:35 INR 1.20 (0.92-1.08) H 07/17/16 04:35 APTT 34.8 SECONDS (23.3-32.5) H 07/17/16 04:35
--- NOTE | 2016-07-21 07:43 | CP.PCM.PN ---
Subjective - Date & Time of Evaluation Date of Evaluation: 07/21/16 Time of Evaluation: 07:30 - Subjective Subjective: 80-year-old man seen in the ICU and is unresponsive. Pt is intubated and on a ventilator. Dressings are clean, dry, and intact. No acute overnight events reported by nursing staff. Objective - Vital Signs/Intake and Output Vital Signs (last 24 hours): Temp Pulse Resp BP Pulse Ox 99.1 F 82 16 109/58 L 99 07/21/16 04:00 07/21/16 06:00 07/21/16 06:00 07/21/16 06:00 07/21/16 06:00 Intake and Output: 07/21/16 07/21/16 06:59 18:59 Intake Total 660 Balance 660 - Medications Medications: Current Medications Acetaminophen (Tylenol 325mg Tab) 650 mg PO Q6 PRN PRN Reason: Pain, moderate (4-7) Last Admin: 07/19/16 16:52 Dose: 650 mg Acetaminophen (Tylenol 325mg Tab) 650 mg PO Q6 PRN PRN Reason: Fever >100.4 F Albuterol/Ipratropium (Duoneb 3 Mg/0.5 Mg (3 Ml) Ud) 3 ml INH RQ4 PRN PRN Reason: Shortness of Breath Allopurinol (Zyloprim) 100 mg PO DAILY [facility] Last Admin: 07/20/16 09:47 Dose: 100 mg Atorvastatin Calcium (Lipitor) 80 mg PO DAILY [facility] Last Admin: 07/20/16 09:46 Dose: 80 mg Bismuth Subsalicylate (Pepto-Bismol) 524 mg PO Q6H PRN PRN Reason: Diarrhea Carvedilol (Coreg) 12.5 mg PO BID [facility] Last Admin: 07/20/16 16:23 Dose: 12.5 mg Dextrose (Dextrose 50% Inj) 0 ml IVP STAT PRN; Protocol PRN Reason: Hypoglycemia Protocol Ezetimibe (Zetia) 10 mg PO HS [facility] Last Admin: 07/20/16 21:41 Dose: 10 mg Ergocalciferol (Drisdol 50,000 Intl Units Cap) 1 cap PO QWK [facility] Gabapentin (Neurontin) 300 mg PO BID [facility] Last Admin: 07/20/16 16:26 Dose: 300 mg Glucagon (Glucagen Diagnostic Kit) 0 mg IM STAT PRN; Protocol PRN Reason: Hypoglycemia Protocol Heparin Sodium (Porcine) (Heparin) 5,000 units SC Q12 [facility] PRN Reason: Protocol Last Admin: 07/20/16 21:41 Dose: 5,000 units Phenylephrine HCl 40 mg/ (Sodium Chloride) 504 mls @ 45.36 mls/hr IV .Q11H7M [facility] GU[facility]; 60 MCG/MIN PRN Reason: Protocol Last Titration: 07/19/16 22:29 Dose: 10 mcg/min, 7.56 mls/hr Vancomycin HCl 1 gm/ Sodium (Chloride) 250 mls @ 166.667 mls/hr IVPB Q72H [facility] Last Admin: 07/20/16 09:48 Dose: 166.667 mls/hr Piperacillin Sod/Tazobactam (Sod 2.25 gm/ Sodium Chloride) 100 mls @ 100 mls/ hr IVPB Q8 [facility] Last Admin: 07/21/16 00:55 Dose: 100 mls/hr Insulin Detemir (Levemir) 25 units SC HS [facility] Last Admin: 07/20/16 22:01 Dose: 25 units Insulin Human Regular (Humulin R) 0 units SC ACHS [facility] PRN Reason: Protocol Last Admin: 07/21/16 06:33 Dose: 8 units Pantoprazole Sodium (Protonix Inj) 40 mg IVP DAILY [facility] Last Admin: 07/20/16 09:51 Dose: 40 mg Sevelamer Carbonate (Renvela) 0.8 gm PO TID [facility] Last Admin: 07/20/16 16:27 Dose: 0.8 gm Sitagliptin Phosphate (Januvia) 25 mg PO DAILY [facility] Last Admin: 07/20/16 09:45 Dose: 25 mg Tamsulosin HCl (Flomax) 0.4 mg PO DAILY [facility] Last Admin: 07/20/16 09:45 Dose: 0.4 mg - Labs Labs: 07/21/16 04:20 07/21/16 04:20 PT 12.5 SECONDS (9.6-11.2) H 07/17/16 04:35 INR 1.20 (0.92-1.08) H 07/17/16 04:35 APTT 34.8 SECONDS (23.3-32.5) H 07/17/16 04:35 - Constitutional Appears: No Acute Distress, Chronically Ill - Extremities Exam Additional comments: Lower extremity focused exam: VASC: DP and PT pulses palpable bilaterally, graded 1/4 and 1/4 respectively. + 1 pitting edema noted to lower extremities b/l. DERM: Diffuse bilateral lower leg blanchable erythema extending from proximal 1/ 3 of leg terminating superior to the ankle joints with accompanying dyshydrotic epidermal patches. Left leg exhibits turgid un-ruptured serous filled vesicles. Right leg noted to have 3 unroof bulla with weeping serous exudate along anterior-lateral margin of proximal 1/3 of leg. NEURO: Unrespoinsive to painful stimuli. ORTHO: No gross deformities noted. Unable to obtain as patient is unresponsive. Assessment and Plan - Assessment and Plan (Free Text) Assessment: 80 year old male with bilateral leg venous stasis dermatitis, secondary to venous insufficiency Plan: Patient evaluated. and treated. Patient with current anoxic encephalopathy, renal failure, and cardiopulmonary compromise contrubulte to a poor overall prognosis. Discussed with attending, Dr. Arora, who is aware of pertinent information and endorses the plan Chart, labs, and vitals reviewed. Afebrile, WBC=14.9 (07/21/16). Blister site dressings consisting of xeroform, abd, DSD, and YADIRA bilaterally were left intact. . Continue IV abx per ID. Podiatry will continue to follow this patient while in house
--- NOTE | 2016-07-21 08:02 | PN ---
DATE: 07/21/2016 The patient seen and examined. Interim events noted. Consults noted and appreciated. The patient r emains in intensive care unit on ventilator. Not able to provide informative history or review of sy stems. PHYSICAL EXAMINATION: GENERAL: The patient is already intubated, on mechanical ventilation via endotracheal tube. Tolerat ing current vent setting without any respiratory distress. VITAL SIGNS: Stable. HEART: S1, S2 normal, regular. LUNGS: Good bilateral air entry. ABDOMEN: Soft, nontender. EXTREMITIES: The patient has chronic venous stasis. CENTRAL NERVOUS SYSTEM: Essentially unchanged, and patient remains essentially unresponsive. DIAGNOSTIC DATA: Available diagnostic data reviewed. Telemetry monitoring does not reveal significa nt arrhythmias. Overall, the patient's general medical condition is essentially the same. Long-term functional progn osis remains poor. Family is aware of same. PLAN: As ordered. Tang Solorio MD cc: [id number] TT: 07/21/2016 08:02:06 Confirmation # [id number] Dictation # [id number] suman
[2016-07-21] MEDS ORDERED: Heparin Sodium (Porcine) 1,000 U/ML 30ML IV SCH (10:00)
[2016-07-21] MEDS: Sevelamer Carb 0.8 gm/Packet PO SCH ×3 (10:36→16:56)
[2016-07-21 12:07] LABS: MEAN CELL VOLUME 84.5 fl (80.0-94.0); RED CELL DISTRIBUTION WIDTH 18.2 % (11.5-14.5); WHITE BLOOD COUNT 14.8 K/uL (4.8-10.8)
--- NOTE | 2016-07-21 15:07 | RAD ---
HISTORY: Intubated. Portable upright study 05:00. COMPARISON: Multiple serial examinations preceding the most recent study: July 20, 2016. FINDINGS: LUNGS: Stable consolidative changes/ atelectasis primarily right lower lobe. PLEURA: Stable bilateral pleural effusions. CARDIOVASCULAR: No radiographic findings to suggest acute or significant cardiovascular disease. Venous access catheter in stable, satisfactory position. OSSEOUS STRUCTURES: No significant abnormalities. VISUALIZED UPPER ABDOMEN: Normal. OTHER FINDINGS: Stable satisfactory position of support apparatus including endotracheal tube, nasogastric tube. IMPRESSION: No significant interval change compared to the prior examination(s).
[2016-07-21] MEDS: Insulin Detemir 100 Units/ml Inj SC SCH (20:59)
--- NOTE | 2016-07-21 23:26 | CP.PCM.PN ---
Subjective - Date & Time of Evaluation Date of Evaluation: 07/21/16 Time of Evaluation: 12:00 - Subjective Subjective: SEEN ON RENAL F/U IN ICU SEEN ON HD .. REMAINS INTUBATED .. 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 PRESSOR Objective - Vital Signs/Intake and Output Vital Signs (last 24 hours): Temp Pulse Resp BP Pulse Ox 99 F 76 18 113/88 100 07/21/16 20:00 07/21/16 22:00 07/21/16 22:00 07/21/16 22:00 07/21/16 22:00 Intake and Output: 07/21/16 07/22/16 18:59 06:59 Intake Total 1014 230 Output Total 2009 Balance -996 230 - Medications Medications: Current Medications Acetaminophen (Tylenol 325mg Tab) 650 mg PO Q6 PRN PRN Reason: Pain, moderate (4-7) Last Admin: 07/19/16 16:52 Dose: 650 mg Acetaminophen (Tylenol 325mg Tab) 650 mg PO Q6 PRN PRN Reason: Fever >100.4 F Albuterol/Ipratropium (Duoneb 3 Mg/0.5 Mg (3 Ml) Ud) 3 ml INH RQ4 PRN PRN Reason: Shortness of Breath Allopurinol (Zyloprim) 100 mg PO DAILY [facility] Last Admin: 07/21/16 10:37 Dose: 100 mg Atorvastatin Calcium (Lipitor) 80 mg PO DAILY [facility] Last Admin: 07/21/16 10:35 Dose: 80 mg Bismuth Subsalicylate (Pepto-Bismol) 524 mg PO Q6H PRN PRN Reason: Diarrhea Carvedilol (Coreg) 12.5 mg PO BID [facility] Last Admin: 07/21/16 16:53 Dose: Not Given Dextrose (Dextrose 50% Inj) 0 ml IVP STAT PRN; Protocol PRN Reason: Hypoglycemia Protocol Ezetimibe (Zetia) 10 mg PO HS [facility] Last Admin: 07/20/16 21:41 Dose: 10 mg Ergocalciferol (Drisdol 50,000 Intl Units Cap) 1 cap PO QWK [facility] Gabapentin (Neurontin) 300 mg PO BID [facility] Last Admin: 07/21/16 16:55 Dose: 300 mg Glucagon (Glucagen Diagnostic Kit) 0 mg IM STAT PRN; Protocol PRN Reason: Hypoglycemia Protocol Heparin Sodium (Porcine) (Heparin) 5,000 units SC Q12 [facility] PRN Reason: Protocol Last Admin: 07/21/16 21:00 Dose: 5,000 units Heparin Sodium (Porcine) (Heparin) 2,000 units IVP MWF [facility] PRN Reason: Protocol Stop: 07/28/16 23:59 Last Admin: 07/21/16 16:54 Dose: Not Given Phenylephrine HCl 40 mg/ (Sodium Chloride) 504 mls @ 45.36 mls/hr IV .Q11H7M [facility]; 60 MCG/MIN PRN Reason: Protocol Last Titration: 07/19/16 22:29 Dose: 10 mcg/min, 7.56 mls/hr Vancomycin HCl 1 gm/ Sodium (Chloride) 250 mls @ 166.667 mls/hr IVPB Q72H [facility] Last Admin: 07/20/16 09:48 Dose: 166.667 mls/hr Piperacillin Sod/Tazobactam (Sod 2.25 gm/ Sodium Chloride) 100 mls @ 100 mls/ hr IVPB Q8 [facility] Last Admin: 07/21/16 16:56 Dose: 100 mls/hr Insulin Detemir (Levemir) 25 units SC HS [facility] Last Admin: 07/21/16 20:59 Dose: 25 units Insulin Human Regular (Humulin R) 0 units SC ACHS [facility] PRN Reason: Protocol Last Admin: 07/21/16 16:55 Dose: 6 units Pantoprazole Sodium (Protonix Inj) 40 mg IVP DAILY [facility] Last Admin: 07/21/16 13:11 Dose: 40 mg Sevelamer Carbonate (Renvela) 0.8 gm PO TID [facility] Last Admin: 07/21/16 16:56 Dose: 0.8 gm Sitagliptin Phosphate (Januvia) 25 mg PO DAILY [facility] Last Admin: 07/21/16 10:34 Dose: 25 mg Tamsulosin HCl (Flomax) 0.4 mg PO DAILY [facility] Last Admin: 07/21/16 10:33 Dose: 0.4 mg - Labs Labs: 07/21/16 11:30 07/21/16 04:20 PT 12.5 SECONDS (9.6-11.2) H 07/17/16 04:35 INR 1.20 (0.92-1.08) H 07/17/16 04:35 APTT 34.8 SECONDS (23.3-32.5) H 07/17/16 04:35 Assessment and Plan - Assessment and Plan (Free Text) Assessment: A ON CKD .. ON HD M W F VDRF .. ON VENT SEPSIS .. ON IVAB S/P CPR .. INTUBATED P : C/O CURRENT CARE C/O CURRENT MANAGEMENT
[2016-07-22 05:16] LABS: HEMATOCRIT 24.9 % (35.0-51.0); MEAN CELL VOLUME 85.4 fl (80.0-94.0); MEAN CORPUSCULAR HEMOGLOBIN 26.6 pg (27.0-31.0); MEAN CORPUSCULAR HGB CONC 31.1 g/dL (33.0-37.0); RED CELL DISTRIBUTION WIDTH 17.9 % (11.5-14.5); WHITE BLOOD COUNT 12.1 K/uL (4.8-10.8)
[2016-07-22 05:23] LABS: ALB/GLOB RATIO 0.6 (1.0-2.1); BILIRUBIN,TOTAL 0.7 mg/dl (0.2-1.3); CALCIUM 7.7 mg/dL (8.4-10.2); POTASSIUM 4.2 MMOL/L (3.6-5.0); TOTAL PROTEIN 6.3 G/DL (6.3-8.2)
[2016-07-22 05:36] LABS: ABG ALLEN TEST YES; ABG MECHANICAL RATE 18; ARTERIAL BLOOD GAS HCO3 26.7 mmol/L (21-28); ARTERIAL BLOOD GAS MODE PRVC/AC; ARTERIAL BLOOD GAS O2 CAPACITY 11.5 mL/dL (16-24); ARTERIAL BLOOD GAS O2 CONTENT 11.5 ML/dL (15-23); ARTERIAL BLOOD GAS PO2 105 mm/Hg (80-100); ARTERIAL BLOOD HGB O2 SAT 96.6 % (95.0-98.0); ATERIAL BLOOD GAS PEEP 5; CARBOXYHEMOGLOBIN 2.1 % (0.5-1.5); HHB -0.3 % (0.0-5.0); METHEMOGLOBIN 1.5 % (0.0-3.0)
[2016-07-22] MEDS: Insulin Regular 100 units/ml SC SCH ×4 (06:36→22:00)
--- NOTE | 2016-07-22 08:37 | PN ---
DATE: 07/21/2016 The patient is in room 430. TIME SPENT: 35 minutes. The patient is seen and evaluated at the bedside. Events since admission reviewed. Past medical, parkinson rgical, social history reviewed, remain unchanged. An 80-year-old male, status post cardiac arrest, remains unresponsive on ventilator, off sedation. R emains comatose, no response to verbal or painful stimuli. On AC/PRVC rate 18, tidal volume of 500, exhaled tidal volume 450, minute ventilation 7.9 liters, FiO2 50%, saturating 100%, peak airway press ure 27, mean airway pressure 12, plateau pressure 18, end tidal CO2 19. No sedation. PHYSICAL EXAMINATION: HEENT: Pupils 3-4 mm, poorly reactive, midline. HEENT: Pupils reactive sluggishly. VITAL SIGNS: Temperature 99.7, heart rate 81, blood pressure 111/59, mean arterial pressure 76, satu ration 100%. Intake 2631, output 100, positive 2531. Currently undergoing hemodialysis. LUNGS: Bilateral breath sounds. Clear to auscultation anteriorly and laterally. HEART: Rhythm regular. S1, S2 normal intensity. ABDOMEN: Bowel sounds present, soft. Liver and spleen not palpable. Bladder not distended. EXTREMITIES: 2+ edema. No palpable cord. Chronic cellulitis involving both lower extremities. Antonio salis pedis palpable. NEUROLOGIC: Unchanged. CURRENT MEDICATIONS: Tylenol 650 q. 6 p.r.n. for temp more than 100.4, DuoNeb 3 mL q. 4, Zyloprim 10 0 mg p.o. daily, Lipitor 80 mg p.o. daily, Pepto-Bismol 524 mg p.o. q. 6, Coreg 12.5 mg p.o. twice da martin, vancomycin 1 gram q. 12, Flomax 0.4 mg p.o. daily, Januvia 25 mg p.o. daily, Renvela 0.8 grams p .o. 3 times daily, Zosyn 2.25 grams IV q. 8, Protonix 40 IV daily, Accu-Chek with regular insulin cov erage, Levemir 25 units subQ at bedtime, Protonix 40 IV daily. IMPRESSION: 1. Status post cardiac arrest. 2. Anoxic encephalopathy. No significant improvement since cardiac arrest. 3. Hypertension, secondary to sepsis, improved. Remains off pressors. 4. Acute on chronic renal failure, on hemodialysis. Appreciate renal followup. 5. Sepsis, possible cholecystitis. Currently on broad spectrum antibiotics. Continue Zosyn. Pulmo nary toilet, tube feeding. 6. Renal failure, on hemodialysis. Prognosis remains guarded. Follow EEG. Consider apnea test. The patient's family requesting to con tinue care, have not made a decision regarding DNR and/or terminal extubation. Continue vent support , antibiotics as per ID, hemodialysis as per renal consult, follow up EEG and neurology input. Javid Jacobsen MD cc: [id number] TT: 07/21/2016 12:20:13 Confirmation # [id number] Dictation # [id number] en
[2016-07-22] MEDS: Sevelamer Carb 0.8 gm/Packet PO SCH ×3 (09:08→17:21)
--- NOTE | 2016-07-22 09:39 | CP.PCM.PN ---
<Mary Britton - Last Filed: 07/22/16 11:13> Subjective - Date & Time of Evaluation Date of Evaluation: 07/22/16 Time of Evaluation: 09:37 - Subjective Subjective: evaluated with attending. no overnight events. pt intubated. no eye movement, no extremity movement to command, no painful stimuli response. no ROS d/t lack of verbal response. HD MWF Objective - Vital Signs/Intake and Output Vital Signs (last 24 hours): Temp Pulse Resp BP Pulse Ox 99.2 F 84 16 117/60 98 07/22/16 07:39 07/22/16 09:07 07/22/16 07:39 07/22/16 09:07 07/22/16 07:39 Intake and Output: 07/22/16 07/22/16 06:59 18:59 Intake Total 930 Balance 930 - Medications Medications: Current Medications Acetaminophen (Tylenol 325mg Tab) 650 mg PO Q6 PRN PRN Reason: Pain, moderate (4-7) Last Admin: 07/19/16 16:52 Dose: 650 mg Acetaminophen (Tylenol 325mg Tab) 650 mg PO Q6 PRN PRN Reason: Fever >100.4 F Albuterol/Ipratropium (Duoneb 3 Mg/0.5 Mg (3 Ml) Ud) 3 ml INH RQ4 PRN PRN Reason: Shortness of Breath Allopurinol (Zyloprim) 100 mg PO DAILY [facility] Last Admin: 07/22/16 09:08 Dose: 100 mg Atorvastatin Calcium (Lipitor) 80 mg PO DAILY [facility] Last Admin: 07/21/16 10:35 Dose: 80 mg Bismuth Subsalicylate (Pepto-Bismol) 524 mg PO Q6H PRN PRN Reason: Diarrhea Carvedilol (Coreg) 12.5 mg PO BID [facility] Last Admin: 07/22/16 09:07 Dose: 12.5 mg Dextrose (Dextrose 50% Inj) 0 ml IVP STAT PRN; Protocol PRN Reason: Hypoglycemia Protocol Ezetimibe (Zetia) 10 mg PO HS [facility] Last Admin: 07/21/16 22:00 Dose: 10 mg Ergocalciferol (Drisdol 50,000 Intl Units Cap) 1 cap PO QWK [facility] Gabapentin (Neurontin) 300 mg PO BID [facility] Last Admin: 07/22/16 09:07 Dose: 300 mg Glucagon (Glucagen Diagnostic Kit) 0 mg IM STAT PRN; Protocol PRN Reason: Hypoglycemia Protocol Heparin Sodium (Porcine) (Heparin) 5,000 units SC Q12 [facility] PRN Reason: Protocol Last Admin: 07/21/16 21:00 Dose: 5,000 units Heparin Sodium (Porcine) (Heparin) 2,000 units IVP MWF [facility] PRN Reason: Protocol Stop: 07/28/16 23:59 Last Admin: 07/21/16 16:54 Dose: Not Given Phenylephrine HCl 40 mg/ (Sodium Chloride) 504 mls @ 45.36 mls/hr IV .Q11H7M [facility]; 60 MCG/MIN PRN Reason: Protocol Last Titration: 07/19/16 22:29 Dose: 10 mcg/min, 7.56 mls/hr Vancomycin HCl 1 gm/ Sodium (Chloride) 250 mls @ 166.667 mls/hr IVPB Q72H [facility] Last Admin: 07/20/16 09:48 Dose: 166.667 mls/hr Piperacillin Sod/Tazobactam (Sod 2.25 gm/ Sodium Chloride) 100 mls @ 100 mls/ hr IVPB Q8 [facility] Last Admin: 07/22/16 09:09 Dose: 100 mls/hr Insulin Detemir (Levemir) 25 units SC HS [facility] Last Admin: 07/21/16 20:59 Dose: 25 units Insulin Human Regular (Humulin R) 0 units SC ACHS [facility] PRN Reason: Protocol Last Admin: 07/22/16 06:36 Dose: 4 units Pantoprazole Sodium (Protonix Inj) 40 mg IVP DAILY [facility] Last Admin: 07/22/16 09:08 Dose: 40 mg Sevelamer Carbonate (Renvela) 0.8 gm PO TID [facility] Last Admin: 07/22/16 09:08 Dose: 0.8 gm Sitagliptin Phosphate (Januvia) 25 mg PO DAILY [facility] Last Admin: 07/22/16 09:07 Dose: 25 mg Tamsulosin HCl (Flomax) 0.4 mg PO DAILY [facility] Last Admin: 07/21/16 10:33 Dose: 0.4 mg - Labs Labs: 07/22/16 04:50 07/22/16 04:50 PT 12.5 SECONDS (9.6-11.2) H 07/17/16 04:35 INR 1.20 (0.92-1.08) H 07/17/16 04:35 APTT 34.8 SECONDS (23.3-32.5) H 07/17/16 04:35 - Constitutional Appears: Non-toxic, No Acute Distress - Head Exam Head Exam: ATRAUMATIC, NORMAL INSPECTION - Eye Exam Additional comments: no spontaneous eye opening - ENT Exam Additional comments: intubated - Neck Exam Neck Exam: Normal Inspection - Respiratory Exam Respiratory Exam: Clear to Ausculation Bilateral Additional comments: intubated - Cardiovascular Exam Cardiovascular Exam: REGULAR RHYTHM - GI/Abdominal Exam GI & Abdominal Exam: Soft - Extremities Exam Extremities Exam: Pedal Edema Additional comments: anasarca upper ext - Back Exam Back Exam: NORMAL INSPECTION - Neurological Exam Neurological Exam: absent: Alert, Oriented x3 Additional comments: -GCS 2, E1V(T)M1 - Skin Skin Exam: Dry, Warm Assessment and Plan - Assessment and Plan (Free Text) Assessment: 80yo M with PMHx HTN, diabetes, prostate BPH and CKD admitted for acute on chronic kidney injury, cellulitis. Currently in ICU for bacteremia with anoxic brain injury on ventilator and unresponsive. Full code. HD MWF. bacteremia -2/2 cellulitis, PNA, or other source. h/o cath placement -blood cx: S anginosus/constellatus -leukocytosis, afebrile -ID on board, appreciate input -Vanc/Zosyn -pressors aspiration PNA -CXR 07/21/16: no interval change -ID on board, appreciate input -intubated PS 18/5/50% -Vanc/Zosyn pAfib -Cardio on board, appreciate input -coreg acute on CKD -HD MWF -Nephro on board, appreciate input cellulitis -Vanc/Zosyn -ID on board, appreciate input -podiatry on board, appreciate input anoxic brain injury -GCS 2, E1V(T)M1 -2/2 renal failure, sepsis, or cardiorenal syndrome -CT head no acute change -neuro on board, appreciate input -intubated PS 18/5/50% -EEG anasarca -low albumin -monitor -HD -Nephro on board, appreciate input HTN -coreg HLD -statin -zetia DM -held linagliptin, pioglitazone -januvia -levemir -SSI -accuchecks DVT ppx -heparin <Tang Solorio K - Last Filed: 08/01/16 17:38> Objective - Vital Signs/Intake and Output Vital Signs (last 24 hours): Temp Pulse Resp BP Pulse Ox 98.8 F 76 20 101/61 100 08/01/16 16:00 08/01/16 16:32 08/01/16 16:00 08/01/16 16:32 08/01/16 16:00 Intake and Output: 08/01/16 08/01/16 06:59 18:59 Intake Total 760 1334 Output Total 0 500 Balance 760 834 - Medications Medications: Current Medications Acetaminophen (Tylenol 650mg/20.3ml Solution Ud) 650 mg PO Q6 PRN PRN Reason: fever Last Admin: 07/28/16 23:38 Dose: 650 mg Acetaminophen (Tylenol 325mg Tab) 650 mg PO Q6H PRN PRN Reason: Pain, moderate (4-7) Allopurinol (Zyloprim) 100 mg PO DAILY [facility] Last Admin: 08/01/16 16:37 Dose: 100 mg Artificial Tears (Artificial Tears) 2 drop OU Q6 PRN PRN Reason: Dry eyes Last Admin: 08/01/16 08:46 Dose: 2 drop Ascorbic Acid (Vitamin C 500 Mg Tab) 1,000 mg PO DAILY [facility] Last Admin: 08/01/16 16:35 Dose: 1,000 mg Bismuth Subsalicylate (Pepto-Bismol) 524 mg PO Q6H PRN PRN Reason: Diarrhea Carvedilol (Coreg) 12.5 mg PO BID [facility] Last Admin: 08/01/16 16:32 Dose: 12.5 mg Dextrose (Dextrose 50% Inj) 0 ml IVP STAT PRN; Protocol PRN Reason: Hypoglycemia Protocol Ezetimibe (Zetia) 10 mg PO HS [facility] Last Admin: 07/31/16 22:06 Dose: 10 mg Epoetin Jameel (Procrit) 4,000 unit SC MWF [facility] Last Admin: 08/01/16 08:50 Dose: 4,000 unit Ergocalciferol (Drisdol 50,000 Intl Units Cap) 1 cap PO QWK [facility] Glucagon (Glucagen Diagnostic Kit) 0 mg IM STAT PRN; Protocol PRN Reason: Hypoglycemia Protocol Heparin Sodium (Porcine) (Heparin) 5,000 units SC Q8 [facility] PRN Reason: Protocol Last Admin: 08/01/16 16:32 Dose: 5,000 units Vancomycin HCl 1 gm/ Sodium (Chloride) 250 mls @ 166.667 mls/hr IVPB MWF [facility] Last Admin: 08/01/16 08:51 Dose: 166.667 mls/hr Micafungin Sodium 100 mg/ (Sodium Chloride) 100 mls @ 100 mls/hr IVPB DAILY [facility] Last Admin: 08/01/16 08:49 Dose: 100 mls/hr Cefepime HCl 1 gm/ Sodium (Chloride) 100 mls @ 100 mls/hr IVPB DAILY [facility] Last Admin: 08/01/16 08:48 Dose: 100 mls/hr Piperacillin Sod/Tazobactam (Sod 2.25 gm/ Sodium Chloride) 100 mls @ 100 mls/ hr IVPB Q8 [facility] Last Admin: 08/01/16 16:36 Dose: 100 mls/hr Insulin Detemir (Levemir) 25 units SC [facility] Last Admin: 08/01/16 00:00 Dose: 25 units Insulin Human Regular (Humulin R) 0 units SC ACHS [facility] PRN Reason: Protocol Last Admin: 08/01/16 16:33 Dose: Not Given Midodrine (Proamatine) 10 mg PO Q8H [facility] Last Admin: 08/01/16 16:34 Dose: 10 mg Pantoprazole Sodium (Protonix Susp) 40 mg PO DAILY [facility] Last Admin: 08/01/16 16:34 Dose: 40 mg Sevelamer Carbonate (Renvela) 0.8 gm PO TID [facility] Last Admin: 08/01/16 16:35 Dose: 0.8 gm Sitagliptin Phosphate (Januvia) 25 mg PO DAILY [facility] Last Admin: 08/01/16 16:34 Dose: 25 mg Tamsulosin HCl (Flomax) 0.4 mg PO DAILY [facility] Last Admin: 08/01/16 16:32 Dose: 0.4 mg Vitamin B Complex/Vit C/Folic Acid (Nephro-Carlitos) 1 tab PO DAILY [facility] Last Admin: 08/01/16 16:34 Dose: 1 tab - Labs Labs: 08/01/16 04:20 08/01/16 04:20 PT 12.7 SECONDS (9.6-11.2) H 07/31/16 04:40 INR 1.22 (0.92-1.08) H 07/31/16 04:40 APTT 30.1 SECONDS (23.3-32.5) 07/31/16 04:40
--- NOTE | 2016-07-22 13:26 | CP.PCM.PN ---
Subjective - Date & Time of Evaluation Date of Evaluation: 07/22/16 Time of Evaluation: 09:00 - Subjective Subjective: events noted rx in progress poor prognosis Objective - Vital Signs/Intake and Output Vital Signs (last 24 hours): Temp Pulse Resp BP Pulse Ox 100.2 F H 83 17 117/57 L 100 07/22/16 12:00 07/22/16 12:00 07/22/16 12:00 07/22/16 12:00 07/22/16 12:00 Intake and Output: 07/22/16 07/22/16 06:59 18:59 Intake Total 930 Balance 930 - Medications Medications: Current Medications Acetaminophen (Tylenol 325mg Tab) 650 mg PO Q6 PRN PRN Reason: Pain, moderate (4-7) Last Admin: 07/19/16 16:52 Dose: 650 mg Acetaminophen (Tylenol 325mg Tab) 650 mg PO Q6 PRN PRN Reason: Fever >100.4 F Albuterol/Ipratropium (Duoneb 3 Mg/0.5 Mg (3 Ml) Ud) 3 ml INH RQ4 PRN PRN Reason: Shortness of Breath Allopurinol (Zyloprim) 100 mg PO DAILY [facility] Last Admin: 07/22/16 09:08 Dose: 100 mg Atorvastatin Calcium (Lipitor) 80 mg PO DAILY [facility] Last Admin: 07/21/16 10:35 Dose: 80 mg Bismuth Subsalicylate (Pepto-Bismol) 524 mg PO Q6H PRN PRN Reason: Diarrhea Carvedilol (Coreg) 12.5 mg PO BID [facility] Last Admin: 07/22/16 09:07 Dose: 12.5 mg Dextrose (Dextrose 50% Inj) 0 ml IVP STAT PRN; Protocol PRN Reason: Hypoglycemia Protocol Ezetimibe (Zetia) 10 mg PO HS [facility] Last Admin: 07/21/16 22:00 Dose: 10 mg Ergocalciferol (Drisdol 50,000 Intl Units Cap) 1 cap PO QWK [facility] Gabapentin (Neurontin) 300 mg PO BID [facility] Last Admin: 07/22/16 09:07 Dose: 300 mg Glucagon (Glucagen Diagnostic Kit) 0 mg IM STAT PRN; Protocol PRN Reason: Hypoglycemia Protocol Heparin Sodium (Porcine) (Heparin) 5,000 units SC Q12 [facility] PRN Reason: Protocol Last Admin: 07/21/16 21:00 Dose: 5,000 units Heparin Sodium (Porcine) (Heparin) 2,000 units IVP MWF [facility] PRN Reason: Protocol Stop: 07/28/16 23:59 Last Admin: 07/21/16 16:54 Dose: Not Given Phenylephrine HCl 40 mg/ (Sodium Chloride) 504 mls @ 45.36 mls/hr IV .Q11H7M [facility]; 60 MCG/MIN PRN Reason: Protocol Last Titration: 07/19/16 22:29 Dose: 10 mcg/min, 7.56 mls/hr Vancomycin HCl 1 gm/ Sodium (Chloride) 250 mls @ 166.667 mls/hr IVPB Q72H [facility] Last Admin: 07/20/16 09:48 Dose: 166.667 mls/hr Piperacillin Sod/Tazobactam (Sod 2.25 gm/ Sodium Chloride) 100 mls @ 100 mls/ hr IVPB Q8 [facility] Last Admin: 07/22/16 09:09 Dose: 100 mls/hr Insulin Detemir (Levemir) 25 units SC HS [facility] Last Admin: 07/21/16 20:59 Dose: 25 units Insulin Human Regular (Humulin R) 0 units SC ACHS [facility] PRN Reason: Protocol Last Admin: 07/22/16 06:36 Dose: 4 units Pantoprazole Sodium (Protonix Inj) 40 mg IVP DAILY [facility] Last Admin: 07/22/16 09:08 Dose: 40 mg Sevelamer Carbonate (Renvela) 0.8 gm PO TID [facility] Last Admin: 07/22/16 09:08 Dose: 0.8 gm Sitagliptin Phosphate (Januvia) 25 mg PO DAILY [facility] Last Admin: 07/22/16 09:07 Dose: 25 mg Tamsulosin HCl (Flomax) 0.4 mg PO DAILY [facility] Last Admin: 07/21/16 10:33 Dose: 0.4 mg - Labs Labs: 07/22/16 04:50 07/22/16 04:50 PT 12.5 SECONDS (9.6-11.2) H 07/17/16 04:35 INR 1.20 (0.92-1.08) H 07/17/16 04:35 APTT 34.8 SECONDS (23.3-32.5) H 07/17/16 04:35 Assessment and Plan (1) Acute kidney failure Status: Acute (2) Cellulitis of right lower extremity Status: Acute (3) Bacteremia Status: Acute (4) Bacteremia Status: Acute
--- NOTE | 2016-07-22 13:28 | RAD ---
HISTORY: Intubated, check placement . Portable semi upright study 09:05. COMPARISON: Multiple serial examinations preceding the most recent study: July 21, 2016. FINDINGS: LUNGS: Stable multifocal and bilateral infiltrates. PLEURA: Stable bilateral pleural effusions. CARDIOVASCULAR: Cardiomegaly. No evidence of acute, significant cardiovascular disease. OSSEOUS STRUCTURES: No significant abnormalities. VISUALIZED UPPER ABDOMEN: Normal. OTHER FINDINGS: Stable, satisfactory position ventilatory, vascular and nasogastric apparatus. IMPRESSION: No significant interval change compared to the prior examination(s).
--- NOTE | 2016-07-22 15:21 | EEG ---
DATE: 07/18/2016 EEG REPORT INTRODUCTION: This is a digitally recorded EEG monitoring using standard EEG montages. BACKGROUND RHYTHM: The EEG shows a background activity of 6-7 Hz theta activity in parietooccipital region. The EEG activity is bilaterally symmetrical and synchronous. There is attenuation of the ba ckground activity on eye opening. Small amount of myogenic artifact noticed in this EEG recording. ABNORMAL POTENTIALS: No spikes, sharp waves, or focal slowing was seen. PHOTIC STIMULATION AND HYPERVENTILATION: Photic stimulation did not reveal any abnormality. Hyperve ntilation was not performed. IMPRESSION: Abnormal EEG. The above findings are consistent with mild bihemispheric cerebral dysfun ction. No epileptiform activity seen in this EEG recording. Lisa Rivera MD cc: [id number] TT: 07/22/2016 11:31:58 Confirmation # [id number] Dictation # [id number] mary
--- NOTE | 2016-07-22 16:40 | CP.CCUPN ---
CCU Subjective - Physician Review Events Since Last Encounter (Free Text): 07/22/16 The Patient was seen and examined at the bedside, Medical records reviewed, all clinical/lab/hemodynamic/radiographic data were reviewed and management issues were discussed and formulated, Events reviewed Pain issues, skin care, head of the bed elevation, GI/DVT prophylaxis, glycemic control were addressed. 80-year-old male with a pertinent medical history of HTN, diabetes, BPH and CKD Who initially presents to the ED on 07/10 with complaints of abdominal pain started 2x weeks ago and bloating. He was found to have acute on CKD and underwent CT abdomen/pelvis which showed a distended GB suspicious for cholecystitis, Surgery and nephrology was consulted, Currently also on IV antibiotics for aspiration pneumonia. 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 then changed in 3 minutes into code blue He was coded for 10 minutes, received 4 rounds of Epinephrine also got IV Calcium gluconate, Intubated with 7.5 ET tube ROSC achieved and was transferred to ICU following cardiac arrest this morning, now orally intubated, Unresponsive to painful stimuli Hospital course also notable for sepsis, Acute kidney failure, A-Fib with RVR, S /p Amiodarone and now Off pressors Afebrile overnight Remains intubated, not breathing over the vent Unresponsive to painful stimuli Patient receive HD yesterday ON IV antibiotics, as per ID, doses renally adjusted IV Vancomycin and Piperacillin Sod/Tazobactam EEG done on Thursday, awaiting results CCU Objective - Vital Signs / Intake & Output Intake and Output (Last 8hrs): Intake & Output 07/22/16 07/22/16 07/22/16 06:59 14:59 22:59 Intake Total 700 Balance 700 Intake: Intake, Piggyback 200 Tube Feeding 440 Free Water Flush 60 - Physical Exam Head: Positive for: Atraumatic, Normocephalic Pupils: Positive for: Non-Reactive Extroacular Muscles: Negative for: EOMI Conjunctiva: Negative for: Injected, Icteric Ears: Positive for: Normal Mouth: Positive for: Dry Pharnyx: Positive for: Normal Neck: Positive for: Other (Right IJ HD catheter site clean with no signs of erythema.) Respiratory/Chest: Positive for: Rhonchi, Tachypneic, Other (Patient on mechanical ventilation. B/L air entry present with occasional expiratory rhonchii. ). Negative for: Wheezes Cardiovascular: Positive for: Regular Rate and Rhythm. Negative for: Murmurs Abdomen: Positive for: Normal Bowel Sounds. Negative for: Tenderness, Distention Genitourinary Male: Positive for: Other (Right groin TLC site clean, dry, with no surrounding erythema. ) Upper Extremity: Positive for: Edema (B/L upper extremity edema Lt>Rt) Lower Extremity: Positive for: Edema (2+), Other (Lower extremity xeroform/YADIRA bandaging in place to upper calf. 2+ pitting edema noted above level of dressings.) Neurological: Positive for: Other (Unresponsive to verbal or painful stimuli. Pupils fixed. Corneal reflex present with occasional spontaneous blink. Mild gag reflex. Not moving extremities. ). Negative for: CN II-XII Intact Psychiatric: Negative for: Alert - Medications Active Medications: Active Medications Generic Name Dose Route Start Last Admin Trade Name Freq PRN Reason Stop Dose Admin Acetaminophen 650 mg 07/18/16 20:13 07/19/16 16:52 Tylenol 325mg Tab PO 650 mg Q6 PRN Administration Pain, moderate (4-7) Acetaminophen 650 mg 07/18/16 20:13 Tylenol 325mg Tab PO Q6 PRN Fever >100.4 F Albuterol/Ipratropium 3 ml 07/18/16 20:13 Duoneb 3 Mg/0.5 Mg (3 Ml) Ud INH RQ4 PRN Shortness of Breath Allopurinol 100 mg 07/19/16 09:00 07/22/16 09:08 Zyloprim PO 100 mg DAILY MARIA GUADALUPE Administration Atorvastatin Calcium 80 mg 07/19/16 09:00 07/21/16 10:35 Lipitor PO 80 mg DAILY MARIA GUADALUPE Administration Bismuth Subsalicylate 524 mg 07/18/16 20:13 Pepto-Bismol PO Q6H PRN Diarrhea Carvedilol 12.5 mg 07/19/16 09:00 07/22/16 09:07 Coreg PO 12.5 mg BID MARIA GUADALUPE Administration Dextrose 0 ml 07/18/16 20:13 Dextrose 50% Inj IVP STAT PRN Hypoglycemia Protocol Protocol Ezetimibe 10 mg 07/18/16 22:00 07/21/16 22:00 Zetia PO 10 mg HS MARIA GUADALUPE Administration Ergocalciferol 1 cap 07/18/16 20:13 Drisdol 50,000 Intl Units Cap PO QWK MARIA GUADALUPE Gabapentin 300 mg 07/19/16 09:00 07/22/16 09:07 Neurontin PO 300 mg BID MARIA GUADALUPE Administration Glucagon 0 mg 07/18/16 20:13 Glucagen Diagnostic Kit IM STAT PRN Hypoglycemia Protocol Protocol Heparin Sodium (Porcine) 5,000 units 07/19/16 21:00 07/21/16 21:00 Heparin SC 5,000 units Q12 MARIA GUADALUPE Administration Protocol Heparin Sodium (Porcine) 2,000 units 07/21/16 11:00 07/21/16 16:54 Heparin IVP 07/28/16 23:59 Not Given MWF MARIA GUADALUPE Protocol Phenylephrine HCl 40 mg/ 504 mls @ 45.36 mls/hr 07/18/16 20:13 07/19/16 22:29 Sodium Chloride IV 10 mcg/min .Q11H7M MARIA GUADALUPE 7.56 mls/hr Protocol Titration 60 MCG/MIN Vancomycin HCl 1 gm/ Sodium 250 mls @ 166.667 mls/hr 07/20/16 10:00 07/20/16 09:48 Chloride IVPB 166.667 mls/hr Q72H MARIA GUADALUPE Administration Piperacillin Sod/Tazobactam 100 mls @ 100 mls/hr 07/19/16 01:00 07/22/16 09: 09 Sod 2.25 gm/ Sodium Chloride IVPB 100 mls/hr Q8 MARIA GUADALUPE Administration Insulin Detemir 25 units 07/18/16 22:00 07/21/16 20:59 Levemir SC 25 units HS MARIA GUADALUPE Administration Insulin Human Regular 0 units 07/19/16 06:45 07/22/16 06:36 Humulin R SC 4 units ACHS MARIA GUADALUPE Administration Protocol Pantoprazole Sodium 40 mg 07/20/16 09:00 07/22/16 09:08 Protonix Inj IVP 40 mg DAILY MARIA GUADALUPE Administration Sevelamer Carbonate 0.8 gm 07/19/16 09:00 07/22/16 09:08 Renvela PO 0.8 gm TID MARIA GUADALUPE Administration Sitagliptin Phosphate 25 mg 07/19/16 09:00 07/22/16 09:07 Januvia PO 25 mg DAILY MARIA GUADALUPE Administration Tamsulosin HCl 0.4 mg 07/19/16 09:00 07/21/16 10:33 Flomax PO 0.4 mg DAILY MARIA GUADALUPE Administration - Patient Studies Lab Studies: Lab Studies 07/22/16 07/22/16 07/22/16 Range/Units 16:15 11:06 05:22 WBC (4.8-10.8) K/uL RBC (4.40-5.90) Mil/uL Hgb (12.0-18.0) g/dL Hct (35.0-51.0) % MCV (80.0-94.0) fl MCH (27.0-31.0) pg MCHC (33.0-37.0) g/dL RDW (11.5-14.5) % Plt Count (130-400) K/uL pCO2 (35-45) mm/Hg pO2 (80-100) mm/Hg HCO3 (21-28) mmol/L ABG pH (7.35-7.45) ABG Total CO2 (22-28) mmol/L ABG O2 Saturation (95-98) % ABG O2 Content (15-23) ML/dL ABG Base Excess (-2.0-3.0) mmol/L ABG Hemoglobin (11.7-17.4) g/dL ABG Carboxyhemoglobin (0.5-1.5) % POC ABG HHb (Measured) (0.0-5.0) % ABG Methemoglobin (0.0-3.0) % ABG O2 Capacity (16-24) mL/dL Mason Test A-a O2 Difference mm/Hg Hgb O2 Saturation (95.0-98.0) % Vent Mode Mechanical Rate FiO2 % Tidal Volume PEEP Sodium (132-148) mmol/l Potassium (3.6-5.0) MMOL/L Chloride (98-107) mmol/L Carbon Dioxide (22-30) mmol/L Anion Gap (10-20) BUN (9-20) mg/dl Creatinine (0.8-1.5) mg/dL Est GFR ( Amer) Est GFR (Non-Af Amer) POC Glucose (mg/dL) 267 H 192 H 221 H (65-110) mg/dL Random Glucose (75-110) mg/dL Calcium (8.4-10.2) mg/dL Total Bilirubin (0.2-1.3) mg/dl AST (17-59) U/L ALT (21-72) U/L Alkaline Phosphatase (38-126) U/L Total Protein (6.3-8.2) G/DL Albumin (3.5-5.0) g/dL Globulin (2.2-3.9) gm/dL Albumin/Globulin Ratio (1.0-2.1) 07/22/16 07/22/16 07/22/16 Range/Units 05:18 04:50 04:50 WBC 12.1 H (4.8-10.8) K/uL RBC 2.92 L (4.40-5.90) Mil/uL Hgb 7.7 L (12.0-18.0) g/dL Hct 24.9 L (35.0-51.0) % MCV 85.4 (80.0-94.0) fl MCH 26.6 L (27.0-31.0) pg MCHC 31.1 L (33.0-37.0) g/dL RDW 17.9 H (11.5-14.5) % Plt Count 286 (130-400) K/uL pCO2 44 (35-45) mm/Hg pO2 105 H (80-100) mm/Hg HCO3 26.7 (21-28) mmol/L ABG pH 7.40 (7.35-7.45) ABG Total CO2 28.7 H (22-28) mmol/L ABG O2 Saturation 100.3 H (95-98) % ABG O2 Content 11.5 L (15-23) ML/dL ABG Base Excess 2.2 (-2.0-3.0) mmol/L ABG Hemoglobin 8.3 L (11.7-17.4) g/dL ABG Carboxyhemoglobin 2.1 H (0.5-1.5) % POC ABG HHb (Measured) -0.3 L (0.0-5.0) % ABG Methemoglobin 1.5 (0.0-3.0) % ABG O2 Capacity 11.5 L (16-24) mL/dL Mason Test Yes A-a O2 Difference 197.0 mm/Hg Hgb O2 Saturation 96.6 (95.0-98.0) % Vent Mode Prvc/ac Mechanical Rate 18 FiO2 50.0 % Tidal Volume 500 PEEP 5 Sodium 141 (132-148) mmol/l Potassium 4.2 (3.6-5.0) MMOL/L Chloride 103 (98-107) mmol/L Carbon Dioxide 26 (22-30) mmol/L Anion Gap 15 (10-20) BUN 77 H (9-20) mg/dl Creatinine 5.3 H (0.8-1.5) mg/dL Est GFR ( Amer) 13 Est GFR (Non-Af Amer) 10 POC Glucose (mg/dL) (65-110) mg/dL Random Glucose 200 H (75-110) mg/dL Calcium 7.7 L (8.4-10.2) mg/dL Total Bilirubin 0.7 (0.2-1.3) mg/dl AST 60 H (17-59) U/L ALT 32 (21-72) U/L Alkaline Phosphatase 252 H (38-126) U/L Total Protein 6.3 (6.3-8.2) G/DL Albumin 2.4 L (3.5-5.0) g/dL Globulin 3.9 (2.2-3.9) gm/dL Albumin/Globulin Ratio 0.6 L (1.0-2.1) 07/21/16 Range/Units 21:32 WBC (4.8-10.8) K/uL RBC (4.40-5.90) Mil/uL Hgb (12.0-18.0) g/dL Hct (35.0-51.0) % MCV (80.0-94.0) fl MCH (27.0-31.0) pg MCHC (33.0-37.0) g/dL RDW (11.5-14.5) % Plt Count (130-400) K/uL pCO2 (35-45) mm/Hg pO2 (80-100) mm/Hg HCO3 (21-28) mmol/L ABG pH (7.35-7.45) ABG Total CO2 (22-28) mmol/L ABG O2 Saturation (95-98) % ABG O2 Content (15-23) ML/dL ABG Base Excess (-2.0-3.0) mmol/L ABG Hemoglobin (11.7-17.4) g/dL ABG Carboxyhemoglobin (0.5-1.5) % POC ABG HHb (Measured) (0.0-5.0) % ABG Methemoglobin (0.0-3.0) % ABG O2 Capacity (16-24) mL/dL Mason Test A-a O2 Difference mm/Hg Hgb O2 Saturation (95.0-98.0) % Vent Mode Mechanical Rate FiO2 % Tidal Volume PEEP Sodium (132-148) mmol/l Potassium (3.6-5.0) MMOL/L Chloride (98-107) mmol/L Carbon Dioxide (22-30) mmol/L Anion Gap (10-20) BUN (9-20) mg/dl Creatinine (0.8-1.5) mg/dL Est GFR ( Amer) Est GFR (Non-Af Amer) POC Glucose (mg/dL) 386 H (65-110) mg/dL Random Glucose (75-110) mg/dL Calcium (8.4-10.2) mg/dL Total Bilirubin (0.2-1.3) mg/dl AST (17-59) U/L ALT (21-72) U/L Alkaline Phosphatase (38-126) U/L Total Protein (6.3-8.2) G/DL Albumin (3.5-5.0) g/dL Globulin (2.2-3.9) gm/dL Albumin/Globulin Ratio (1.0-2.1) Laboratory Results - last 24 hr 07/21/16 07/22/16 07/22/16 21:32 04:50 04:50 WBC 12.1 H RBC 2.92 L Hgb 7.7 L Hct 24.9 L MCV 85.4 MCH 26.6 L MCHC 31.1 L RDW 17.9 H Plt Count 286 pCO2 pO2 HCO3 ABG pH ABG Total CO2 ABG O2 Saturation ABG O2 Content ABG Base Excess ABG Hemoglobin ABG Carboxyhemoglobin POC ABG HHb (Measured) ABG Methemoglobin ABG O2 Capacity Mason Test A-a O2 Difference Hgb O2 Saturation Vent Mode Mechanical Rate FiO2 Tidal Volume PEEP Sodium 141 Potassium 4.2 Chloride 103 Carbon Dioxide 26 Anion Gap 15 BUN 77 H Creatinine 5.3 H Est GFR ( Amer) 13 Est GFR (Non-Af Amer) 10 POC Glucose (mg/dL) 386 H Random Glucose 200 H Calcium 7.7 L Total Bilirubin 0.7 AST 60 H ALT 32 Alkaline Phosphatase 252 H Total Protein 6.3 Albumin 2.4 L Globulin 3.9 Albumin/Globulin Ratio 0.6 L 07/22/16 07/22/16 07/22/16 05:18 05:22 11:06 WBC RBC Hgb Hct MCV MCH MCHC RDW Plt Count pCO2 44 pO2 105 H HCO3 26.7 ABG pH 7.40 ABG Total CO2 28.7 H ABG O2 Saturation 100.3 H ABG O2 Content 11.5 L ABG Base Excess 2.2 ABG Hemoglobin 8.3 L ABG Carboxyhemoglobin 2.1 H POC ABG HHb (Measured) -0.3 L ABG Methemoglobin 1.5 ABG O2 Capacity 11.5 L Mason Test Yes A-a O2 Difference 197.0 Hgb O2 Saturation 96.6 Vent Mode Prvc/ac Mechanical Rate 18 FiO2 50.0 Tidal Volume 500 PEEP 5 Sodium Potassium Chloride Carbon Dioxide Anion Gap BUN Creatinine Est GFR ( Amer) Est GFR (Non-Af Amer) POC Glucose (mg/dL) 221 H 192 H Random Glucose Calcium Total Bilirubin AST ALT Alkaline Phosphatase Total Protein Albumin Globulin Albumin/Globulin Ratio 07/22/16 16:15 WBC RBC Hgb Hct MCV MCH MCHC RDW Plt Count pCO2 pO2 HCO3 ABG pH ABG Total CO2 ABG O2 Saturation ABG O2 Content ABG Base Excess ABG Hemoglobin ABG Carboxyhemoglobin POC ABG HHb (Measured) ABG Methemoglobin ABG O2 Capacity Mason Test A-a O2 Difference Hgb O2 Saturation Vent Mode Mechanical Rate FiO2 Tidal Volume PEEP Sodium Potassium Chloride Carbon Dioxide Anion Gap BUN Creatinine Est GFR ( Amer) Est GFR (Non-Af Amer) POC Glucose (mg/dL) 267 H Random Glucose Calcium Total Bilirubin AST ALT Alkaline Phosphatase Total Protein Albumin Globulin Albumin/Globulin Ratio Fingerstick Blood Sugar Results: 221 Assessment/Plan (1) Cardiac arrest Current Visit: Yes Status: Acute Comment: No neurological improvements Remains intubated, not breathing over the vent Unresponsive to painful stimuli EEG Neurology evaluation appreciated (2) Anoxic brain injury Current Visit: Yes Status: Acute Priority: High (3) Aspiration pneumonia Current Visit: Yes Status: Acute Comment: Afebrile overnight IV Zosyn Off pressors ID evaluation appreciated (4) Acute kidney failure Current Visit: Yes Status: Acute Comment: Nephrology evaluation appreciated Patient receive HD yesterday HD TIW (MWF) (5) Acute cholecystitis Current Visit: Yes Status: Acute
[2016-07-22] MEDS: Insulin Detemir 100 Units/ml Inj SC SCH (21:14)
--- NOTE | 2016-07-22 21:17 | CP.PCM.PN ---
Subjective - Date & Time of Evaluation Date of Evaluation: 07/22/16 Time of Evaluation: 14:00 - Subjective Subjective: SEEN IN ICU ON RENAL F/U REMAINS INTUBATED .. 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 .. 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 PRESSORS Objective - Vital Signs/Intake and Output Vital Signs (last 24 hours): Temp Pulse Resp BP Pulse Ox 100.2 F H 78 17 120/71 100 07/22/16 12:00 07/22/16 17:16 07/22/16 12:00 07/22/16 17:16 07/22/16 12:00 - Medications Medications: Current Medications Acetaminophen (Tylenol 325mg Tab) 650 mg PO Q6 PRN PRN Reason: Pain, moderate (4-7) Last Admin: 07/19/16 16:52 Dose: 650 mg Acetaminophen (Tylenol 325mg Tab) 650 mg PO Q6 PRN PRN Reason: Fever >100.4 F Albuterol/Ipratropium (Duoneb 3 Mg/0.5 Mg (3 Ml) Ud) 3 ml INH RQ4 PRN PRN Reason: Shortness of Breath Allopurinol (Zyloprim) 100 mg PO DAILY [facility] Last Admin: 07/22/16 09:08 Dose: 100 mg Atorvastatin Calcium (Lipitor) 80 mg PO DAILY [facility] Last Admin: 07/22/16 09:00 Dose: 80 mg Bismuth Subsalicylate (Pepto-Bismol) 524 mg PO Q6H PRN PRN Reason: Diarrhea Carvedilol (Coreg) 12.5 mg PO BID [facility] Last Admin: 07/22/16 17:16 Dose: 12.5 mg Dextrose (Dextrose 50% Inj) 0 ml IVP STAT PRN; Protocol PRN Reason: Hypoglycemia Protocol Ezetimibe (Zetia) 10 mg PO HS [facility] Last Admin: 07/21/16 22:00 Dose: 10 mg Ergocalciferol (Drisdol 50,000 Intl Units Cap) 1 cap PO QWK [facility] Gabapentin (Neurontin) 300 mg PO BID [facility] Last Admin: 07/22/16 17:18 Dose: 300 mg Glucagon (Glucagen Diagnostic Kit) 0 mg IM STAT PRN; Protocol PRN Reason: Hypoglycemia Protocol Heparin Sodium (Porcine) (Heparin) 5,000 units SC Q12 MARIA GUADALUPE PRN Reason: Protocol Last Admin: 07/22/16 21:13 Dose: 5,000 units Heparin Sodium (Porcine) (Heparin) 2,000 units IVP MWF [facility] PRN Reason: Protocol Stop: 07/28/16 23:59 Last Admin: 07/21/16 16:54 Dose: Not Given Phenylephrine HCl 40 mg/ (Sodium Chloride) 504 mls @ 45.36 mls/hr IV .Q11H7M MARIA GUADALUPE; 60 MCG/MIN PRN Reason: Protocol Last Titration: 07/19/16 22:29 Dose: 10 mcg/min, 7.56 mls/hr Vancomycin HCl 1 gm/ Sodium (Chloride) 250 mls @ 166.667 mls/hr IVPB Q72H [facility] Last Admin: 07/20/16 09:48 Dose: 166.667 mls/hr Piperacillin Sod/Tazobactam (Sod 2.25 gm/ Sodium Chloride) 100 mls @ 100 mls/ hr IVPB Q8 [facility] Last Admin: 07/22/16 17:22 Dose: 100 mls/hr Insulin Detemir (Levemir) 25 units SC HS [facility] Last Admin: 07/21/16 20:59 Dose: 25 units Insulin Human Regular (Humulin R) 0 units SC ACHS MARIA GUADALUPE PRN Reason: Protocol Last Admin: 07/22/16 17:27 Dose: 6 units Pantoprazole Sodium (Protonix Inj) 40 mg IVP DAILY [facility] Last Admin: 07/22/16 09:08 Dose: 40 mg Sevelamer Carbonate (Renvela) 0.8 gm PO TID [facility] Last Admin: 07/22/16 17:21 Dose: 0.8 gm Sitagliptin Phosphate (Januvia) 25 mg PO DAILY [facility] Last Admin: 07/22/16 09:07 Dose: 25 mg Tamsulosin HCl (Flomax) 0.4 mg PO DAILY [facility] Last Admin: 07/22/16 09:00 Dose: 0.4 mg - Labs Labs: 07/22/16 04:50 07/22/16 04:50 PT 12.5 SECONDS (9.6-11.2) H 07/17/16 04:35 INR 1.20 (0.92-1.08) H 07/17/16 04:35 APTT 34.8 SECONDS (23.3-32.5) H 07/17/16 04:35 Assessment and Plan - Assessment and Plan (Free Text) Assessment: A ON CKD PROCEEDING TO BE ESRD .. ON HD M W F AEMIA OF CKD AND OTHER CAUSES .. MAY NEED PRBC TRANFUSION SEPSIS ON IVAB PER DR TAM S/P CODE BLUE .. ON VENT C/O CURRENT CARE
[2016-07-23 06:13] LABS: ABG ALLEN TEST YES; ARTERIAL BLOOD GAS MODE PRVC AC; ATERIAL BLOOD GAS PEEP 5; METHEMOGLOBIN 1.3 % (0.0-3.0)
[2016-07-23 06:58] LABS: HEMATOCRIT 24.8 % (35.0-51.0); MEAN CELL VOLUME 84.4 fl (80.0-94.0); MEAN CORPUSCULAR HEMOGLOBIN 27.5 pg (27.0-31.0); MEAN CORPUSCULAR HGB CONC 32.6 g/dL (33.0-37.0); RED CELL DISTRIBUTION WIDTH 18.4 % (11.5-14.5); WHITE BLOOD COUNT 10.3 K/uL (4.8-10.8)
--- NOTE | 2016-07-23 07:02 | CP.PCM.PN ---
<Mary Britton - Last Filed: 07/23/16 09:41> Subjective - Date & Time of Evaluation Date of Evaluation: 07/23/16 Time of Evaluation: 07:02 - Subjective Subjective: evaluated with attending. no overnight events. pt intubated. no eye movement, no extremity movement to command, no painful stimuli response. no ROS d/t lack of verbal response. HD MWF Objective - Vital Signs/Intake and Output Vital Signs (last 24 hours): Temp Pulse Resp BP Pulse Ox 99.1 F 77 19 122/60 100 07/23/16 04:00 07/23/16 06:00 07/23/16 06:00 07/23/16 06:00 07/23/16 06:00 Intake and Output: 07/23/16 07/23/16 06:59 18:59 Intake Total 820 Balance 820 - Medications Medications: Current Medications Acetaminophen (Tylenol 325mg Tab) 650 mg PO Q6 PRN PRN Reason: Pain, moderate (4-7) Last Admin: 07/23/16 00:30 Dose: 650 mg Acetaminophen (Tylenol 325mg Tab) 650 mg PO Q6 PRN PRN Reason: Fever >100.4 F Albuterol/Ipratropium (Duoneb 3 Mg/0.5 Mg (3 Ml) Ud) 3 ml INH RQ4 PRN PRN Reason: Shortness of Breath Allopurinol (Zyloprim) 100 mg PO DAILY [facility] Last Admin: 07/22/16 09:08 Dose: 100 mg Ascorbic Acid (Vitamin C 500 Mg Tab) 1,000 mg PO DAILY [facility] Bismuth Subsalicylate (Pepto-Bismol) 524 mg PO Q6H PRN PRN Reason: Diarrhea Carvedilol (Coreg) 12.5 mg PO BID [facility] Last Admin: 07/22/16 17:16 Dose: 12.5 mg Dextrose (Dextrose 50% Inj) 0 ml IVP STAT PRN; Protocol PRN Reason: Hypoglycemia Protocol Ezetimibe (Zetia) 10 mg PO HS [facility] Last Admin: 07/22/16 21:15 Dose: 10 mg Ergocalciferol (Drisdol 50,000 Intl Units Cap) 1 cap PO QWK [facility] Gabapentin (Neurontin) 300 mg PO BID [facility] Last Admin: 07/22/16 17:18 Dose: 300 mg Glucagon (Glucagen Diagnostic Kit) 0 mg IM STAT PRN; Protocol PRN Reason: Hypoglycemia Protocol Heparin Sodium (Porcine) (Heparin) 5,000 units SC Q12 [facility] PRN Reason: Protocol Last Admin: 07/22/16 21:13 Dose: 5,000 units Heparin Sodium (Porcine) (Heparin) 2,000 units IVP MWF [facility] PRN Reason: Protocol Stop: 07/28/16 23:59 Last Admin: 07/21/16 16:54 Dose: Not Given Phenylephrine HCl 40 mg/ (Sodium Chloride) 504 mls @ 45.36 mls/hr IV .Q11H7M [facility]; 60 MCG/MIN PRN Reason: Protocol Last Titration: 07/19/16 22:29 Dose: 10 mcg/min, 7.56 mls/hr Vancomycin HCl 1 gm/ Sodium (Chloride) 250 mls @ 166.667 mls/hr IVPB Q72H [facility] Last Admin: 07/20/16 09:48 Dose: 166.667 mls/hr Piperacillin Sod/Tazobactam (Sod 2.25 gm/ Sodium Chloride) 100 mls @ 100 mls/ hr IVPB Q8 [facility] Last Admin: 07/23/16 01:00 Dose: 100 mls/hr Insulin Detemir (Levemir) 25 units SC HS [facility] Last Admin: 07/22/16 21:14 Dose: 25 units Insulin Human Regular (Humulin R) 0 units SC ACHS [facility] PRN Reason: Protocol Last Admin: 07/22/16 22:00 Dose: 3 units Pantoprazole Sodium (Protonix Inj) 40 mg IVP DAILY [facility] Last Admin: 07/22/16 09:08 Dose: 40 mg Sevelamer Carbonate (Renvela) 0.8 gm PO TID [facility] Last Admin: 07/22/16 17:21 Dose: 0.8 gm Sitagliptin Phosphate (Januvia) 25 mg PO DAILY [facility] Last Admin: 07/22/16 09:07 Dose: 25 mg Tamsulosin HCl (Flomax) 0.4 mg PO DAILY [facility] Last Admin: 07/22/16 09:00 Dose: 0.4 mg Vitamin B Complex/Vit C/Folic Acid (Nephro-Carlitos) 1 tab PO DAILY [facility] - Labs Labs: 07/22/16 04:50 07/22/16 04:50 PT 12.5 SECONDS (9.6-11.2) H 07/17/16 04:35 INR 1.20 (0.92-1.08) H 07/17/16 04:35 APTT 34.8 SECONDS (23.3-32.5) H 07/17/16 04:35 - Constitutional Appears: Non-toxic, No Acute Distress - Head Exam Head Exam: ATRAUMATIC, NORMAL INSPECTION - Eye Exam Additional comments: no eye opening - ENT Exam Additional comments: intubated - Neck Exam Neck Exam: Normal Inspection - Respiratory Exam Additional comments: intubated PS - Cardiovascular Exam Cardiovascular Exam: REGULAR RHYTHM - GI/Abdominal Exam GI & Abdominal Exam: Soft - Extremities Exam Extremities Exam: Pedal Edema - Neurological Exam Neurological Exam: absent: Alert, Awake, Oriented x3 Additional comments: intubated - Skin Skin Exam: Dry Assessment and Plan - Assessment and Plan (Free Text) Assessment: 80yo M with PMHx HTN, diabetes, prostate BPH and CKD admitted for acute on chronic kidney injury, cellulitis. Currently in ICU for bacteremia with anoxic brain injury on ventilator and unresponsive. Full code. HD MWF. bacteremia -2/2 cellulitis, PNA, or other source. h/o cath placement -blood cx: S anginosus/constellatus -no leukocytosis, febrile -ID on board, appreciate input -Vanc/Zosyn -off pressors aspiration PNA -CXR 07/21/16: no interval change -ID on board, appreciate input -intubated PS 18/5/50% -Vanc/Zosyn pAfib -Cardio on board, appreciate input -coreg acute on CKD -HD MWF -Nephro on board, appreciate input cellulitis -Vanc/Zosyn -ID on board, appreciate input -podiatry on board, appreciate input anoxic brain injury -GCS 2, E1V(T)M1 -2/2 renal failure, sepsis, or cardiorenal syndrome -CT head no acute change -neuro on board, appreciate input -intubated PS 18/5/50% -EEG anasarca -low albumin -monitor -HD -Nephro on board, appreciate input HTN -coreg HLD -statin -zetia DM -held linagliptin, pioglitazone -januvia -levemir -SSI -accuchecks DVT ppx -heparin <Solorio,Tang K - Last Filed: 08/01/16 17:47> Objective - Vital Signs/Intake and Output Vital Signs (last 24 hours): Temp Pulse Resp BP Pulse Ox 98.8 F 76 20 101/61 100 08/01/16 16:00 08/01/16 16:32 08/01/16 16:00 08/01/16 16:32 08/01/16 16:00 Intake and Output: 08/01/16 08/01/16 06:59 18:59 Intake Total 760 1334 Output Total 0 500 Balance 760 834 - Medications Medications: Current Medications Acetaminophen (Tylenol 650mg/20.3ml Solution Ud) 650 mg PO Q6 PRN PRN Reason: fever Last Admin: 07/28/16 23:38 Dose: 650 mg Acetaminophen (Tylenol 325mg Tab) 650 mg PO Q6H PRN PRN Reason: Pain, moderate (4-7) Allopurinol (Zyloprim) 100 mg PO DAILY [facility] Last Admin: 08/01/16 16:37 Dose: 100 mg Artificial Tears (Artificial Tears) 2 drop OU Q6 PRN PRN Reason: Dry eyes Last Admin: 08/01/16 08:46 Dose: 2 drop Ascorbic Acid (Vitamin C 500 Mg Tab) 1,000 mg PO DAILY [facility] Last Admin: 08/01/16 16:35 Dose: 1,000 mg Bismuth Subsalicylate (Pepto-Bismol) 524 mg PO Q6H PRN PRN Reason: Diarrhea Carvedilol (Coreg) 12.5 mg PO BID [facility] Last Admin: 08/01/16 16:32 Dose: 12.5 mg Dextrose (Dextrose 50% Inj) 0 ml IVP STAT PRN; Protocol PRN Reason: Hypoglycemia Protocol Ezetimibe (Zetia) 10 mg PO HS [facility] Last Admin: 07/31/16 22:06 Dose: 10 mg Epoetin Jameel (Procrit) 4,000 unit SC MWF [facility] Last Admin: 08/01/16 08:50 Dose: 4,000 unit Ergocalciferol (Drisdol 50,000 Intl Units Cap) 1 cap PO QWK [facility] Glucagon (Glucagen Diagnostic Kit) 0 mg IM STAT PRN; Protocol PRN Reason: Hypoglycemia Protocol Heparin Sodium (Porcine) (Heparin) 5,000 units SC Q8 [facility] PRN Reason: Protocol Last Admin: 08/01/16 16:32 Dose: 5,000 units Vancomycin HCl 1 gm/ Sodium (Chloride) 250 mls @ 166.667 mls/hr IVPB MWF [facility] Last Admin: 08/01/16 08:51 Dose: 166.667 mls/hr Micafungin Sodium 100 mg/ (Sodium Chloride) 100 mls @ 100 mls/hr IVPB DAILY [facility] Last Admin: 08/01/16 08:49 Dose: 100 mls/hr Cefepime HCl 1 gm/ Sodium (Chloride) 100 mls @ 100 mls/hr IVPB DAILY [facility] Last Admin: 08/01/16 08:48 Dose: 100 mls/hr Piperacillin Sod/Tazobactam (Sod 2.25 gm/ Sodium Chloride) 100 mls @ 100 mls/ hr IVPB Q8 [facility] Last Admin: 08/01/16 16:36 Dose: 100 mls/hr Insulin Detemir (Levemir) 25 units SC HS [facility] Last Admin: 08/01/16 00:00 Dose: 25 units Insulin Human Regular (Humulin R) 0 units SC ACHS [facility] PRN Reason: Protocol Last Admin: 08/01/16 16:33 Dose: Not Given Midodrine (Proamatine) 10 mg PO Q8H [facility] Last Admin: 08/01/16 16:34 Dose: 10 mg Pantoprazole Sodium (Protonix Susp) 40 mg PO DAILY [facility] Last Admin: 08/01/16 16:34 Dose: 40 mg Sevelamer Carbonate (Renvela) 0.8 gm PO TID [facility] Last Admin: 08/01/16 16:35 Dose: 0.8 gm Sitagliptin Phosphate (Januvia) 25 mg PO DAILY [facility] Last Admin: 08/01/16 16:34 Dose: 25 mg Tamsulosin HCl (Flomax) 0.4 mg PO DAILY [facility] Last Admin: 08/01/16 16:32 Dose: 0.4 mg Vitamin B Complex/Vit C/Folic Acid (Nephro-Carlitos) 1 tab PO DAILY [facility] Last Admin: 08/01/16 16:34 Dose: 1 tab - Labs Labs: 08/01/16 04:20 08/01/16 04:20 PT 12.7 SECONDS (9.6-11.2) H 07/31/16 04:40 INR 1.22 (0.92-1.08) H 07/31/16 04:40 APTT 30.1 SECONDS (23.3-32.5) 07/31/16 04:40 Assessment and Plan - Assessment and Plan (Free Text) Assessment: Patient seen and examined with residents in rounds. Case, condition, investigative work up and plan discussed in detail. Agree with residents progress note. Plan: As ordered. (Tang Solorio MD)
[2016-07-23 07:13] LABS: ALB/GLOB RATIO 0.6 (1.0-2.1); BILIRUBIN,TOTAL 0.6 mg/dl (0.2-1.3); CALCIUM 7.7 mg/dL (8.4-10.2); POTASSIUM 4.4 MMOL/L (3.6-5.0); TOTAL PROTEIN 6.5 G/DL (6.3-8.2)
[2016-07-23] MEDS: Insulin Regular 100 units/ml SC SCH ×4 (07:30→21:42)
[2016-07-23] MEDS: Multivitamin Vitamin B Complex (Nephro-Vite) Tab PO SCH (10:06)
[2016-07-23] MEDS: Sevelamer Carb 0.8 gm/Packet PO SCH ×3 (10:07→17:21)
--- NOTE | 2016-07-23 10:58 | CP.CCUPN ---
Addendum entered and electronically signed by Cee Garcia MD 07/23/16 16:07 : Patient completed dialysis today and had 1700cc of ultrafiltrate removed. He tolerated dialysis well, however, approximately 2 hours later patient developed atrial flutter with a HR in 130-150 range. STAT dose of amiodarone was administered in addition to 500cc NS bolus. HR returned to 80s range. Discussed findings and treatment with family at bedside. Will continue to monitor. Original Note: <Cee Garcia - Last Filed: 07/23/16 14:24> CCU Subjective - Physician Review Subjective (Free Text): 07/23/16 10:53 Patient seen and examined at bedside and discussed with attending during morning rounds. He remains non-verbal on mechanical ventilation. Pupils are fixed, with corneal reflex. Dolls eyes negative. Gag reflex is not present however corynal reflex can be elicited. Patient still does not withdraw to painful stimuli and is not moving extremities. He is afebrile and off of pressors. Patient has scheduled dialysis planned for today. CCU Objective - Vital Signs / Intake & Output Vital Signs (Last 4 hours): Vital Signs Temp Pulse Resp BP Pulse Ox 07/23/16 10:06 82 116/68 07/23/16 08:00 99.3 F 82 20 120/57 L 100 Intake and Output (Last 8hrs): Intake & Output 07/22/16 07/23/16 07/23/16 22:59 06:59 14:59 Intake Total 280 540 Balance 280 540 Intake: Intake, Piggyback 100 Tube Feeding 220 440 Free Water Flush 60 - Physical Exam Head: Positive for: Atraumatic, Normocephalic Pupils: Positive for: Non-Reactive Extroacular Muscles: Negative for: EOMI Conjunctiva: Negative for: Injected, Icteric Mouth: Positive for: Dry Neck: Positive for: Other (Right IJ HD catheter site clean with no signs of erythema.) Respiratory/Chest: Positive for: Rhonchi, Tachypneic, Other (Patient on mechanical ventilation. B/L air entry present with occasional expiratory rhonchii. ). Negative for: Wheezes Cardiovascular: Positive for: Regular Rate and Rhythm. Negative for: Murmurs Abdomen: Positive for: Normal Bowel Sounds. Negative for: Tenderness, Distention Genitourinary Male: Positive for: Other (Right groin TLC site clean, dry, with no surrounding erythema. ) Upper Extremity: Positive for: Edema (B/L upper extremity edema) Lower Extremity: Positive for: Edema (3+ ), Other (3+ pitting edema noted above level of lower extremity YADIRA dressings.) Neurological: Positive for: Other (Unresponsive to verbal or painful stimuli. Pupils fixed. Corneal reflex present with occasional spontaneous blink. Mild gag reflex. Not moving extremities. ). Negative for: CN II-XII Intact Psychiatric: Negative for: Alert Other physical findings (Free Text): Generalized anasarca present - Medications Active Medications: Active Medications Generic Name Dose Route Start Last Admin Trade Name Freq PRN Reason Stop Dose Admin Acetaminophen 650 mg 07/18/16 20:13 07/23/16 00:30 Tylenol 325mg Tab PO 650 mg Q6 PRN Administration Pain, moderate (4-7) Acetaminophen 650 mg 07/18/16 20:13 Tylenol 325mg Tab PO Q6 PRN Fever >100.4 F Albuterol/Ipratropium 3 ml 07/18/16 20:13 Duoneb 3 Mg/0.5 Mg (3 Ml) Ud INH RQ4 PRN Shortness of Breath Allopurinol 100 mg 07/19/16 09:00 07/23/16 10:08 Zyloprim PO 100 mg DAILY [facility] Administration Ascorbic Acid 1,000 mg 07/23/16 09:00 07/23/16 10:07 Vitamin C 500 Mg Tab PO 1,000 mg DAILY [facility] Administration Bismuth Subsalicylate 524 mg 07/18/16 20:13 Pepto-Bismol PO Q6H PRN Diarrhea Carvedilol 12.5 mg 07/19/16 09:00 07/23/16 10:06 Coreg PO 12.5 mg BID [facility] Administration Dextrose 0 ml 07/18/16 20:13 Dextrose 50% Inj IVP STAT PRN Hypoglycemia Protocol Protocol Ezetimibe 10 mg 07/18/16 22:00 07/22/16 21:15 Zetia PO 10 mg HS [facility] GU[facility]ALU[facility] Administration Ergocalciferol 1 cap 07/18/16 20:13 Drisdol 50,000 Intl Units Cap PO QWK [facility] Gabapentin 300 mg 07/19/16 09:00 07/23/16 10:06 Neurontin PO 300 mg BID [facility] Administration Glucagon 0 mg 07/18/16 20:13 Glucagen Diagnostic Kit IM STAT PRN Hypoglycemia Protocol Protocol Heparin Sodium (Porcine) 5,000 units 07/19/16 21:00 07/22/16 21:13 Heparin SC 5,000 units Q12 [facility] Administration Protocol Heparin Sodium (Porcine) 2,000 units 07/21/16 11:00 07/23/16 10:05 Heparin IVP 07/28/16 23:59 2,000 units MWF [facility] Administration Protocol Phenylephrine HCl 40 mg/ 504 mls @ 45.36 mls/hr 07/18/16 20:13 07/19/16 22:29 Sodium Chloride IV 10 mcg/min .Q11H7M [facility] 7.56 mls/hr Protocol Titration 60 MCG/MIN Vancomycin HCl 1 gm/ Sodium 250 mls @ 166.667 mls/hr 07/20/16 10:00 07/23/16 10:09 Chloride IVPB 166.667 mls/hr Q72H [facility] Administration Piperacillin Sod/Tazobactam 100 mls @ 100 mls/hr 07/19/16 01:00 07/23/16 10: 08 Sod 2.25 gm/ Sodium Chloride IVPB 100 mls/hr Q8 [facility] Administration Insulin Detemir 25 units 07/18/16 22:00 07/22/16 21:14 Levemir SC 25 units HS [facility] Administration Insulin Human Regular 0 units 07/19/16 06:45 07/22/16 22:00 Humulin R SC 3 units ACHS [facility] Administration Protocol Pantoprazole Sodium 40 mg 07/20/16 09:00 07/22/16 09:08 Protonix Inj IVP 40 mg DAILY [facility] Administration Sevelamer Carbonate 0.8 gm 07/19/16 09:00 07/23/16 10:07 Renvela PO 0.8 gm TID [facility] Administration Sitagliptin Phosphate 25 mg 07/19/16 09:00 07/23/16 10:07 Januvia PO 25 mg DAILY [facility] Administration Tamsulosin HCl 0.4 mg 07/19/16 09:00 07/23/16 10:10 Flomax PO 0.4 mg DAILY [facility] Administration Vitamin B Complex/Vit C/Folic Acid 1 tab 07/23/16 09:00 07/23/16 10:06 Nephro-Carlitos PO 1 tab DAILY [facility] Administration - Patient Studies Lab Studies: Lab Studies 07/23/16 07/23/16 07/23/16 Range/Units 06:00 06:00 06:00 WBC 10.3 (4.8-10.8) K/uL RBC 2.93 L (4.40-5.90) Mil/uL Hgb 8.1 L (12.0-18.0) g/dL Hct 24.8 L (35.0-51.0) % MCV 84.4 (80.0-94.0) fl MCH 27.5 (27.0-31.0) pg MCHC 32.6 L (33.0-37.0) g/dL RDW 18.4 H (11.5-14.5) % Plt Count 305 (130-400) K/uL pCO2 (35-45) mm/Hg pO2 (80-100) mm/Hg HCO3 (21-28) mmol/L ABG pH (7.35-7.45) ABG Total CO2 (22-28) mmol/L ABG O2 Saturation (95-98) % ABG O2 Content (15-23) ML/dL ABG Base Excess (-2.0-3.0) mmol/L ABG Hemoglobin (11.7-17.4) g/dL ABG Carboxyhemoglobin (0.5-1.5) % POC ABG HHb (Measured) (0.0-5.0) % ABG Methemoglobin (0.0-3.0) % ABG O2 Capacity (16-24) mL/dL Mason Test A-a O2 Difference mm/Hg Hgb O2 Saturation (95.0-98.0) % Vent Mode Mechanical Rate FiO2 % Tidal Volume PEEP Sodium 141 (132-148) mmol/l Potassium 4.4 (3.6-5.0) MMOL/L Chloride 103 (98-107) mmol/L Carbon Dioxide 26 (22-30) mmol/L Anion Gap 16 (10-20) BUN 94 H (9-20) mg/dl Creatinine 6.5 H (0.8-1.5) mg/dL Est GFR ( Amer) 10 Est GFR (Non-Af Amer) 8 POC Glucose (mg/dL) (65-110) mg/dL Random Glucose 235 H (75-110) mg/dL Calcium 7.7 L (8.4-10.2) mg/dL Total Bilirubin 0.6 (0.2-1.3) mg/dl AST 62 H (17-59) U/L ALT 30 (21-72) U/L Alkaline Phosphatase 269 H (38-126) U/L Total Protein 6.5 (6.3-8.2) G/DL Albumin 2.4 L (3.5-5.0) g/dL Globulin 4.0 H (2.2-3.9) gm/dL Albumin/Globulin Ratio 0.6 L (1.0-2.1) Random Vancomycin 22.4 ug/mL 07/23/16 07/23/16 07/22/16 Range/Units 05:54 04:38 21:54 WBC (4.8-10.8) K/uL RBC (4.40-5.90) Mil/uL Hgb (12.0-18.0) g/dL Hct (35.0-51.0) % MCV (80.0-94.0) fl MCH (27.0-31.0) pg MCHC (33.0-37.0) g/dL RDW (11.5-14.5) % Plt Count (130-400) K/uL pCO2 42 (35-45) mm/Hg pO2 132 H (80-100) mm/Hg HCO3 25.3 (21-28) mmol/L ABG pH 7.39 (7.35-7.45) ABG Total CO2 26.7 (22-28) mmol/L ABG O2 Saturation 100.0 H (95-98) % ABG O2 Content 11.9 L (15-23) ML/dL ABG Base Excess 0.4 (-2.0-3.0) mmol/L ABG Hemoglobin 8.5 L (11.7-17.4) g/dL ABG Carboxyhemoglobin 1.6 H (0.5-1.5) % POC ABG HHb (Measured) 0.0 (0.0-5.0) % ABG Methemoglobin 1.3 (0.0-3.0) % ABG O2 Capacity 11.9 L (16-24) mL/dL Mason Test Yes A-a O2 Difference 172.0 mm/Hg Hgb O2 Saturation 97.0 (95.0-98.0) % Vent Mode Prvc ac Mechanical Rate 18 FiO2 50.0 % Tidal Volume 500 PEEP 5 Sodium (132-148) mmol/l Potassium (3.6-5.0) MMOL/L Chloride (98-107) mmol/L Carbon Dioxide (22-30) mmol/L Anion Gap (10-20) BUN (9-20) mg/dl Creatinine (0.8-1.5) mg/dL Est GFR ( Amer) Est GFR (Non-Af Amer) POC Glucose (mg/dL) 261 H 360 H (65-110) mg/dL Random Glucose (75-110) mg/dL Calcium (8.4-10.2) mg/dL Total Bilirubin (0.2-1.3) mg/dl AST (17-59) U/L ALT (21-72) U/L Alkaline Phosphatase (38-126) U/L Total Protein (6.3-8.2) G/DL Albumin (3.5-5.0) g/dL Globulin (2.2-3.9) gm/dL Albumin/Globulin Ratio (1.0-2.1) Random Vancomycin ug/mL 07/22/16 07/22/16 Range/Units 16:15 11:06 WBC (4.8-10.8) K/uL RBC (4.40-5.90) Mil/uL Hgb (12.0-18.0) g/dL Hct (35.0-51.0) % MCV (80.0-94.0) fl MCH (27.0-31.0) pg MCHC (33.0-37.0) g/dL RDW (11.5-14.5) % Plt Count (130-400) K/uL pCO2 (35-45) mm/Hg pO2 (80-100) mm/Hg HCO3 (21-28) mmol/L ABG pH (7.35-7.45) ABG Total CO2 (22-28) mmol/L ABG O2 Saturation (95-98) % ABG O2 Content (15-23) ML/dL ABG Base Excess (-2.0-3.0) mmol/L ABG Hemoglobin (11.7-17.4) g/dL ABG Carboxyhemoglobin (0.5-1.5) % POC ABG HHb (Measured) (0.0-5.0) % ABG Methemoglobin (0.0-3.0) % ABG O2 Capacity (16-24) mL/dL Mason Test A-a O2 Difference mm/Hg Hgb O2 Saturation (95.0-98.0) % Vent Mode Mechanical Rate FiO2 % Tidal Volume PEEP Sodium (132-148) mmol/l Potassium (3.6-5.0) MMOL/L Chloride (98-107) mmol/L Carbon Dioxide (22-30) mmol/L Anion Gap (10-20) BUN (9-20) mg/dl Creatinine (0.8-1.5) mg/dL Est GFR ( Amer) Est GFR (Non-Af Amer) POC Glucose (mg/dL) 267 H 192 H (65-110) mg/dL Random Glucose (75-110) mg/dL Calcium (8.4-10.2) mg/dL Total Bilirubin (0.2-1.3) mg/dl AST (17-59) U/L ALT (21-72) U/L Alkaline Phosphatase (38-126) U/L Total Protein (6.3-8.2) G/DL Albumin (3.5-5.0) g/dL Globulin (2.2-3.9) gm/dL Albumin/Globulin Ratio (1.0-2.1) Random Vancomycin ug/mL Laboratory Results - last 24 hr 07/22/16 07/22/16 07/22/16 11:06 16:15 21:54 WBC RBC Hgb Hct MCV MCH MCHC RDW Plt Count pCO2 pO2 HCO3 ABG pH ABG Total CO2 ABG O2 Saturation ABG O2 Content ABG Base Excess ABG Hemoglobin ABG Carboxyhemoglobin POC ABG HHb (Measured) ABG Methemoglobin ABG O2 Capacity Mason Test A-a O2 Difference Hgb O2 Saturation Vent Mode Mechanical Rate FiO2 Tidal Volume PEEP Sodium Potassium Chloride Carbon Dioxide Anion Gap BUN Creatinine Est GFR ( Amer) Est GFR (Non-Af Amer) POC Glucose (mg/dL) 192 H 267 H 360 H Random Glucose Calcium Total Bilirubin AST ALT Alkaline Phosphatase Total Protein Albumin Globulin Albumin/Globulin Ratio Random Vancomycin 07/23/16 07/23/16 07/23/16 04:38 05:54 06:00 WBC 10.3 RBC 2.93 L Hgb 8.1 L Hct 24.8 L MCV 84.4 MCH 27.5 MCHC 32.6 L RDW 18.4 H Plt Count 305 pCO2 42 pO2 132 H HCO3 25.3 ABG pH 7.39 ABG Total CO2 26.7 ABG O2 Saturation 100.0 H ABG O2 Content 11.9 L ABG Base Excess 0.4 ABG Hemoglobin 8.5 L ABG Carboxyhemoglobin 1.6 H POC ABG HHb (Measured) 0.0 ABG Methemoglobin 1.3 ABG O2 Capacity 11.9 L Mason Test Yes A-a O2 Difference 172.0 Hgb O2 Saturation 97.0 Vent Mode Prvc ac Mechanical Rate 18 FiO2 50.0 Tidal Volume 500 PEEP 5 Sodium Potassium Chloride Carbon Dioxide Anion Gap BUN Creatinine Est GFR ( Amer) Est GFR (Non-Af Amer) POC Glucose (mg/dL) 261 H Random Glucose Calcium Total Bilirubin AST ALT Alkaline Phosphatase Total Protein Albumin Globulin Albumin/Globulin Ratio Random Vancomycin 07/23/16 07/23/16 06:00 06:00 WBC RBC Hgb Hct MCV MCH MCHC RDW Plt Count pCO2 pO2 HCO3 ABG pH ABG Total CO2 ABG O2 Saturation ABG O2 Content ABG Base Excess ABG Hemoglobin ABG Carboxyhemoglobin POC ABG HHb (Measured) ABG Methemoglobin ABG O2 Capacity Mason Test A-a O2 Difference Hgb O2 Saturation Vent Mode Mechanical Rate FiO2 Tidal Volume PEEP Sodium 141 Potassium 4.4 Chloride 103 Carbon Dioxide 26 Anion Gap 16 BUN 94 H Creatinine 6.5 H Est GFR ( Amer) 10 Est GFR (Non-Af Amer) 8 POC Glucose (mg/dL) Random Glucose 235 H Calcium 7.7 L Total Bilirubin 0.6 AST 62 H ALT 30 Alkaline Phosphatase 269 H Total Protein 6.5 Albumin 2.4 L Globulin 4.0 H Albumin/Globulin Ratio 0.6 L Random Vancomycin 22.4 Fingerstick Blood Sugar Results: 261 Review of Systems - Review of Systems Systems not reviewed;Unavailable: Intubated Assessment/Plan - Assessment and Plan (Free Text) Assessment: 80 y/o with PMH including HTN, DM2, Hyperlipidemia, Morbid obesity, CKD Stage IV presented to [facility] for 2 weeks of progressive abdominal pain, lower extremity erythema and generalized malaise. He was subsequently admitted for lower extremity cellulitis, possible cholecystitis and acute on chronic CKD associated with multiple electrolyte abnormalities. During admission, patient had signs of lethargy and was sent for CT Head and Chest, during which an INSTITUTIONAL AIDE was called. INSTITUTIONAL AIDE converted to code blue for cardiac/respiratory arrest. Patient was coded for 10 minutes and was intubated, with return of spontaneous circulation. Patient was then transferred to ICU on 07/14/16. Since then, patient has been intubated and unresponsive. 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 Current ICU day 10. Plan: Acute Respiratory Failure -Etiology possibly secondary to aspiration pneumonia? -Patient intubated on 07/14/16 due to cardiac/respiratory arrest -Currently on mechanical ventilation, day 10 -Vent settings overnight: 18/500/5/50% -Vent adjusted this morning to 10/500/5/40%, remains breathing over vent at RR of 18, tolerating well with O2 sat of 100% -If family wishes to continue full code status, will consider early tracheostomy and PICC moving forward Anoxic Brain Injury -Secondary to cardiac arrest with hypoxemia -Absent pupillary response. Corneal reflex present. Dolls eyes negative. Gag reflex absent however carinal reflex can be elicited. -Patient is not brain due to preserved brain stem functions, however remains in vegetative state -Will consider early tracheostomy and PICC based on family wishes -Continue neuro checks -Neurology consulted Acute on Chronic Kidney Failure -Has been following with nephrology, Dr Morse as outpatient -BUN/Cr: 94/6.5 -Started on HD during admission, which patient has been receiving on MWF schedule -Receiving scheduled for dialysis today Sepsis, with Strep Anginosus Bacteremia, resolved -Etiology secondary to GI vs Skin vs Aspiration pneumonia -Patient remains afebrile. WBC: 10.3 -Blood culture from 07/09 detected strep anginosus sensitive to Vancomycin -Repeat blood cultures from 07/09 and 07/14 revealed no growth -Currently off pressors -Currently on empiric abx: Vancomycin 1gm IV Q72h (Since 07/13) and Zosyn 2.25 gm IV Q8h (Started 07/11, day 13) Cellulitis of B/L Lower Extremity -Related to b/l venous stasis dermatitis -Dressings with xeroform and YADIRA bandages per podiatry service -Receiving IV antibiotics as detailed above -Podiatry and Infectious Disease following Paroxysmal Atrial Fibrillation -Had episodes of afib during dialysis which resolved with amiodarone. -No paroxysmal episodes noted over the last several days. -Rate controlled. Sinus rhythm today. Will monitor. DVT Prophylaxis -Heparin 5,000units SC Q8H <Vito Mckeon - Last Filed: 07/23/16 18:52> CCU Subjective - Physician Review Subjective (Free Text): Attestation: Patient seen and examined at the bedside with Resident Dr. Sung Garcia; and I agree with his outline of plans and management documented below as discussed on AM rounds reflecting my review of all applicable clinical data, and participation in the care of the patient throughout the day in ICU; today, July 23, 2016.
--- NOTE | 2016-07-23 11:01 | CP.PCM.PN ---
Subjective - Date & Time of Evaluation Date of Evaluation: 07/23/16 Time of Evaluation: 11:01 - Subjective Subjective: 80 year old man seen in the ICU with attending, Dr. Arora. Patient is unresponsive, he is intubated and on a ventilator. Dressings are clean, dry, and intact. No acute overnight events reported by nursing staff. Objective - Vital Signs/Intake and Output Vital Signs (last 24 hours): Temp Pulse Resp BP Pulse Ox 99.3 F 82 20 116/68 100 07/23/16 08:00 07/23/16 10:06 07/23/16 08:00 07/23/16 10:06 07/23/16 08:00 Intake and Output: 07/23/16 07/23/16 06:59 18:59 Intake Total 820 Balance 820 - Medications Medications: Current Medications Acetaminophen (Tylenol 325mg Tab) 650 mg PO Q6 PRN PRN Reason: Pain, moderate (4-7) Last Admin: 07/23/16 00:30 Dose: 650 mg Acetaminophen (Tylenol 325mg Tab) 650 mg PO Q6 PRN PRN Reason: Fever >100.4 F Albuterol/Ipratropium (Duoneb 3 Mg/0.5 Mg (3 Ml) Ud) 3 ml INH RQ4 PRN PRN Reason: Shortness of Breath Allopurinol (Zyloprim) 100 mg PO DAILY [facility] Last Admin: 07/23/16 10:08 Dose: 100 mg Ascorbic Acid (Vitamin C 500 Mg Tab) 1,000 mg PO DAILY [facility] Last Admin: 07/23/16 10:07 Dose: 1,000 mg Bismuth Subsalicylate (Pepto-Bismol) 524 mg PO Q6H PRN PRN Reason: Diarrhea Carvedilol (Coreg) 12.5 mg PO BID [facility] Last Admin: 07/23/16 10:06 Dose: 12.5 mg Dextrose (Dextrose 50% Inj) 0 ml IVP STAT PRN; Protocol PRN Reason: Hypoglycemia Protocol Ezetimibe (Zetia) 10 mg PO HS [facility] Last Admin: 07/22/16 21:15 Dose: 10 mg Ergocalciferol (Drisdol 50,000 Intl Units Cap) 1 cap PO QWK [facility] Gabapentin (Neurontin) 300 mg PO BID [facility] Last Admin: 07/23/16 10:06 Dose: 300 mg Glucagon (Glucagen Diagnostic Kit) 0 mg IM STAT PRN; Protocol PRN Reason: Hypoglycemia Protocol Heparin Sodium (Porcine) (Heparin) 5,000 units SC Q12 [facility] PRN Reason: Protocol Last Admin: 07/22/16 21:13 Dose: 5,000 units Heparin Sodium (Porcine) (Heparin) 2,000 units IVP MWF [facility] PRN Reason: Protocol Stop: 07/28/16 23:59 Last Admin: 07/23/16 10:05 Dose: 2,000 units Phenylephrine HCl 40 mg/ (Sodium Chloride) 504 mls @ 45.36 mls/hr IV .Q11H7M [facility] GUADALU[facility]; 60 MCG/MIN PRN Reason: Protocol Last Titration: 07/19/16 22:29 Dose: 10 mcg/min, 7.56 mls/hr Vancomycin HCl 1 gm/ Sodium (Chloride) 250 mls @ 166.667 mls/hr IVPB Q72H [facility] Last Admin: 07/23/16 10:09 Dose: 166.667 mls/hr Piperacillin Sod/Tazobactam (Sod 2.25 gm/ Sodium Chloride) 100 mls @ 100 mls/ hr IVPB Q8 [facility] Last Admin: 07/23/16 10:08 Dose: 100 mls/hr Insulin Detemir (Levemir) 25 units SC HS [facility] Last Admin: 07/22/16 21:14 Dose: 25 units Insulin Human Regular (Humulin R) 0 units SC ACHS [facility] PRN Reason: Protocol Last Admin: 07/22/16 22:00 Dose: 3 units Pantoprazole Sodium (Protonix Inj) 40 mg IVP DAILY [facility] Last Admin: 07/22/16 09:08 Dose: 40 mg Sevelamer Carbonate (Renvela) 0.8 gm PO TID [facility] Last Admin: 07/23/16 10:07 Dose: 0.8 gm Sitagliptin Phosphate (Januvia) 25 mg PO DAILY [facility] Last Admin: 07/23/16 10:07 Dose: 25 mg Tamsulosin HCl (Flomax) 0.4 mg PO DAILY [facility] Last Admin: 07/23/16 10:10 Dose: 0.4 mg Vitamin B Complex/Vit C/Folic Acid (Nephro-Carlitos) 1 tab PO DAILY [facility] Last Admin: 07/23/16 10:06 Dose: 1 tab - Labs Labs: 07/23/16 06:00 07/23/16 06:00 PT 12.5 SECONDS (9.6-11.2) H 07/17/16 04:35 INR 1.20 (0.92-1.08) H 07/17/16 04:35 APTT 34.8 SECONDS (23.3-32.5) H 07/17/16 04:35 - Constitutional Appears: Chronically Ill - Extremities Exam Additional comments: Lower extremity focused exam: VASC: DP and PT pulses palpable 1/4 b/l. +1 pitting edema noted to lower extremities b/l. DERM: Diffuse bilateral lower leg blanchable erythema extending from proximal 1/ 3 of leg terminating superior to the ankle joints with accompanying dyshydrotic epidermal patches. Left leg exhibits turgid un-ruptured serous filled vesicles. Right leg noted to have 3 unroof bulla with weeping serous exudate along anterior-lateral margin of proximal 1/3 of leg. NEURO: Unresponsive to painful stimuli. ORTHO: No gross deformities noted. Unable to obtain as patient is unresponsive. Assessment and Plan - Assessment and Plan (Free Text) Assessment: 80 year old male with bilateral leg venous stasis dermatitis, secondary to venous insufficiency Plan: Patient examined and evaluated with attending, Dr. Arora Patient with current anoxic encephalopathy, renal failure, and cardiopulmonary compromise contribute to a poor overall prognosis. Chart, labs, and vitals reviewed. Afebrile, WBC=10.7 B/L LE dressed with xeroform, abd, DSD, and YADIRA Continue IV abx per ID. Podiatry will continue to follow this patient while in house
--- NOTE | 2016-07-23 12:08 | RAD ---
HISTORY: Intubated, check placement . Portable study 04:40. COMPARISON: Multiple serial examinations preceding the most recent study: July 22, 2016. FINDINGS: LUNGS: Stable consolidative findings both lower lobes right PLEURA: Greater than left stable bilateral pleural effusions. CARDIOVASCULAR: 2 stable cardiomegaly OSSEOUS STRUCTURES: No significant abnormalities. VISUALIZED UPPER ABDOMEN: Normal. OTHER FINDINGS: Stable, satisfactory position ventilatory, vascular and nasogastric apparatus. IMPRESSION: No significant interval change compared to the prior examination(s).
--- NOTE | 2016-07-23 14:28 | CP.PCM.PN ---
Subjective - Date & Time of Evaluation Date of Evaluation: 07/23/16 Time of Evaluation: 08:00 - Subjective Subjective: remains non-verbal on mechanical ventilation. Pupils are fixed, Objective - Vital Signs/Intake and Output Vital Signs (last 24 hours): Temp Pulse Resp BP Pulse Ox 98.8 F 83 16 116/60 100 07/23/16 12:00 07/23/16 12:00 07/23/16 12:00 07/23/16 12:00 07/23/16 12:00 Intake and Output: 07/23/16 07/23/16 06:59 18:59 Intake Total 820 Balance 820 - Medications Medications: Current Medications Acetaminophen (Tylenol 325mg Tab) 650 mg PO Q6 PRN PRN Reason: Pain, moderate (4-7) Last Admin: 07/23/16 00:30 Dose: 650 mg Acetaminophen (Tylenol 325mg Tab) 650 mg PO Q6 PRN PRN Reason: Fever >100.4 F Albuterol/Ipratropium (Duoneb 3 Mg/0.5 Mg (3 Ml) Ud) 3 ml INH RQ4 PRN PRN Reason: Shortness of Breath Allopurinol (Zyloprim) 100 mg PO DAILY [facility] Last Admin: 07/23/16 10:08 Dose: 100 mg Ascorbic Acid (Vitamin C 500 Mg Tab) 1,000 mg PO DAILY [facility] Last Admin: 07/23/16 10:07 Dose: 1,000 mg Bismuth Subsalicylate (Pepto-Bismol) 524 mg PO Q6H PRN PRN Reason: Diarrhea Carvedilol (Coreg) 12.5 mg PO BID [facility] Last Admin: 07/23/16 10:06 Dose: 12.5 mg Dextrose (Dextrose 50% Inj) 0 ml IVP STAT PRN; Protocol PRN Reason: Hypoglycemia Protocol Ezetimibe (Zetia) 10 mg PO HS [facility] Last Admin: 07/22/16 21:15 Dose: 10 mg Ergocalciferol (Drisdol 50,000 Intl Units Cap) 1 cap PO QWK [facility] Glucagon (Glucagen Diagnostic Kit) 0 mg IM STAT PRN; Protocol PRN Reason: Hypoglycemia Protocol Heparin Sodium (Porcine) (Heparin) 5,000 units SC Q12 [facility] PRN Reason: Protocol Last Admin: 07/22/16 21:13 Dose: 5,000 units Heparin Sodium (Porcine) (Heparin) 2,000 units IVP MWF [facility] PRN Reason: Protocol Stop: 07/28/16 23:59 Last Admin: 07/23/16 10:05 Dose: 2,000 units Vancomycin HCl 1 gm/ Sodium (Chloride) 250 mls @ 166.667 mls/hr IVPB Q72H [facility] Last Admin: 07/23/16 10:09 Dose: 166.667 mls/hr Piperacillin Sod/Tazobactam (Sod 2.25 gm/ Sodium Chloride) 100 mls @ 100 mls/ hr IVPB Q8 [facility] Last Admin: 07/23/16 10:08 Dose: 100 mls/hr Insulin Detemir (Levemir) 25 units SC HS [facility] Last Admin: 07/22/16 21:14 Dose: 25 units Insulin Human Regular (Humulin R) 0 units SC ACHS [facility] PRN Reason: Protocol Last Admin: 07/22/16 22:00 Dose: 3 units Pantoprazole Sodium (Protonix Inj) 40 mg IVP DAILY [facility] Last Admin: 07/22/16 09:08 Dose: 40 mg Sevelamer Carbonate (Renvela) 0.8 gm PO TID [facility] Last Admin: 07/23/16 10:07 Dose: 0.8 gm Sitagliptin Phosphate (Januvia) 25 mg PO DAILY [facility] Last Admin: 07/23/16 10:07 Dose: 25 mg Tamsulosin HCl (Flomax) 0.4 mg PO DAILY [facility] Last Admin: 07/23/16 10:10 Dose: 0.4 mg Vitamin B Complex/Vit C/Folic Acid (Nephro-Carlitos) 1 tab PO DAILY [facility] Last Admin: 07/23/16 10:06 Dose: 1 tab - Labs Labs: 07/23/16 06:00 07/23/16 06:00 PT 12.5 SECONDS (9.6-11.2) H 07/17/16 04:35 INR 1.20 (0.92-1.08) H 07/17/16 04:35 APTT 34.8 SECONDS (23.3-32.5) H 07/17/16 04:35 Assessment and Plan (1) Acute kidney failure Status: Acute (2) Cellulitis of right lower extremity Status: Acute (3) Bacteremia Status: Acute (4) Bacteremia Status: Acute
[2016-07-23] MEDS ORDERED: Amiodarone 150mg/3 ml vial ONE (15:31)
[2016-07-23] MEDS ORDERED: Amiodarone 900 MG in Dextrose 5% In Water 500 ML IVPB SCH (15:45)
[2016-07-23] MEDS ORDERED: Sodium Chloride 0.9% 500 ML IV ONE (15:45)
[2016-07-23] MEDS: Insulin Detemir 100 Units/ml Inj SC SCH (21:42)
--- NOTE | 2016-07-23 22:20 | CARD ---
APPROVED REPORT EKG Measurement Heart [id number] MS 168P [id number] <Conclusion> Atrial fibrillation with rapid ventricular response Left bundle branch block Abnormal ECG
--- NOTE | 2016-07-23 23:17 | CP.PCM.PN ---
Subjective - Date & Time of Evaluation Date of Evaluation: 07/23/16 Time of Evaluation: 13:00 - Subjective Subjective: SEEN ON RENAL F/U IN ICU HD WAS DONE .. UF 1700 CC REMAINS INTUBATED .. 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 ALL PREVIOUS EMR REVIEWED LABS REVIEWED Objective - Vital Signs/Intake and Output Vital Signs (last 24 hours): Temp Pulse Resp BP Pulse Ox 100.1 F H 93 H 16 117/67 99 07/23/16 16:00 07/23/16 17:17 07/23/16 16:00 07/23/16 17:17 07/23/16 16:00 - Medications Medications: Current Medications Acetaminophen (Tylenol 325mg Tab) 650 mg PO Q6 PRN PRN Reason: Pain, moderate (4-7) Last Admin: 07/23/16 00:30 Dose: 650 mg Acetaminophen (Tylenol 325mg Tab) 650 mg PO Q6 PRN PRN Reason: Fever >100.4 F Albuterol/Ipratropium (Duoneb 3 Mg/0.5 Mg (3 Ml) Ud) 3 ml INH RQ4 PRN PRN Reason: Shortness of Breath Allopurinol (Zyloprim) 100 mg PO DAILY [facility] Last Admin: 07/23/16 10:08 Dose: 100 mg Ascorbic Acid (Vitamin C 500 Mg Tab) 1,000 mg PO DAILY [facility] Last Admin: 07/23/16 10:07 Dose: 1,000 mg Bismuth Subsalicylate (Pepto-Bismol) 524 mg PO Q6H PRN PRN Reason: Diarrhea Carvedilol (Coreg) 12.5 mg PO BID [facility] Last Admin: 07/23/16 17:17 Dose: 12.5 mg Dextrose (Dextrose 50% Inj) 0 ml IVP STAT PRN; Protocol PRN Reason: Hypoglycemia Protocol Ezetimibe (Zetia) 10 mg PO HS [facility] Last Admin: 07/23/16 21:43 Dose: 10 mg Ergocalciferol (Drisdol 50,000 Intl Units Cap) 1 cap PO QWK [facility] Glucagon (Glucagen Diagnostic Kit) 0 mg IM STAT PRN; Protocol PRN Reason: Hypoglycemia Protocol Heparin Sodium (Porcine) (Heparin) 5,000 units SC Q12 [facility] PRN Reason: Protocol Last Admin: 07/23/16 21:00 Dose: 5,000 units Heparin Sodium (Porcine) (Heparin) 2,000 units IVP MWF [facility] PRN Reason: Protocol Stop: 07/28/16 23:59 Last Admin: 07/23/16 10:05 Dose: 2,000 units Vancomycin HCl 1 gm/ Sodium (Chloride) 250 mls @ 166.667 mls/hr IVPB Q72H [facility] Last Admin: 07/23/16 10:09 Dose: 166.667 mls/hr Piperacillin Sod/Tazobactam (Sod 2.25 gm/ Sodium Chloride) 100 mls @ 100 mls/ hr IVPB Q8 [facility] Last Admin: 07/23/16 17:23 Dose: 100 mls/hr Amiodarone HCl 900 mg/ (Dextrose) 518 mls @ 34.53 mls/hr IVPB .Q15H1M [facility]; 1 MG /MIN PRN Reason: Protocol Insulin Detemir (Levemir) 25 units SC HS [facility] Last Admin: 07/23/16 21:42 Dose: 25 units Insulin Human Regular (Humulin R) 0 units SC ACHS [facility] PRN Reason: Protocol Last Admin: 07/23/16 21:42 Dose: 6 units Pantoprazole Sodium (Protonix Inj) 40 mg IVP DAILY [facility] Last Admin: 07/23/16 11:00 Dose: 40 mg Sevelamer Carbonate (Renvela) 0.8 gm PO TID [facility] Last Admin: 07/23/16 17:21 Dose: 0.8 gm Sitagliptin Phosphate (Januvia) 25 mg PO DAILY [facility] Last Admin: 07/23/16 10:07 Dose: 25 mg Tamsulosin HCl (Flomax) 0.4 mg PO DAILY [facility] Last Admin: 07/23/16 10:10 Dose: 0.4 mg Vitamin B Complex/Vit C/Folic Acid (Nephro-Carlitos) 1 tab PO DAILY [facility] Last Admin: 07/23/16 10:06 Dose: 1 tab - Labs Labs: 07/23/16 06:00 07/23/16 06:00 PT 12.5 SECONDS (9.6-11.2) H 07/17/16 04:35 INR 1.20 (0.92-1.08) H 07/17/16 04:35 APTT 34.8 SECONDS (23.3-32.5) H 07/17/16 04:35 Assessment and Plan - Assessment and Plan (Free Text) Assessment: ESRD ON HD M W F AND I WILL ADD ALSO ON SAT ANEMIA OF CKD .. ON EPO SEPSIS ON IVAB PER ID SERVICE VDRF .. ON VENT MULTIPLE CO MORBIDITIES P : C/O CURRENT CARE INCREAS HD TO QID
[2016-07-24 05:13] LABS: ALB/GLOB RATIO 0.6 (1.0-2.1); BILIRUBIN,TOTAL 0.6 mg/dl (0.2-1.3); CALCIUM 7.6 mg/dL (8.4-10.2); POTASSIUM 4.1 MMOL/L (3.6-5.0); TOTAL PROTEIN 6.7 G/DL (6.3-8.2)
[2016-07-24 06:23] LABS: ABG MECHANICAL RATE 10; ARTERIAL BLOOD GAS HCO3 27.4 mmol/L (21-28); ARTERIAL BLOOD GAS O2 CAPACITY 11.7 mL/dL (16-24); ARTERIAL BLOOD GAS O2 CONTENT 11.8 ML/dL (15-23); ARTERIAL BLOOD GAS PH 7.42 (7.35-7.45); ARTERIAL BLOOD GAS PO2 130 mm/Hg (80-100); ARTERIAL BLOOD HGB O2 SAT 97.5 % (95.0-98.0); CARBOXYHEMOGLOBIN 1.9 % (0.5-1.5); HHB -0.7 % (0.0-5.0)
[2016-07-24] MEDS ORDERED: Piperacillin/Tazobact 2.25 gm Inj ONE (09:00)
[2016-07-24] MEDS ORDERED: Insulin Regular 100 units/ml ONE (09:00)
--- NOTE | 2016-07-24 09:55 | RAD ---
HISTORY: Intubated COMPARISON: No prior. FINDINGS: LUNGS: Evaluation limited due to body habitus. Ill-defined opacity at right base silhouettes right janice diaphragmatic border. This may represent infiltrate and/or pleural effusion. No left-sided opacity. No left pleural effusion. PLEURA: As above CARDIOVASCULAR: Right tunneled central venous dialysis catheter. ET tube and NG tube unchanged. OSSEOUS STRUCTURES: No significant abnormalities. VISUALIZED UPPER ABDOMEN: Normal. OTHER FINDINGS: None. IMPRESSION: Right basilar infiltrate/effusion. Lines and tubes unchanged.
[2016-07-24 19:46] LABS: HEMATOCRIT 25.7 % (35.0-51.0); MEAN CORPUSCULAR HEMOGLOBIN 26.6 pg (27.0-31.0); MEAN CORPUSCULAR HGB CONC 31.3 g/dL (33.0-37.0); RED CELL DISTRIBUTION WIDTH 18.5 % (11.5-14.5); WHITE BLOOD COUNT 10.2 K/uL (4.8-10.8)
[2016-07-24] MEDS: Insulin Detemir 100 Units/ml Inj SC SCH (21:22)
[2016-07-24] MEDS: Insulin Regular 100 units/ml SC SCH (21:29)
--- NOTE | 2016-07-24 21:51 | CP.PCM.PN ---
Subjective - Date & Time of Evaluation Date of Evaluation: 07/24/16 Time of Evaluation: 15:00 - Subjective Subjective: ON HD M W F AND SAT REMAINS INTUBATED Objective - Vital Signs/Intake and Output Vital Signs (last 24 hours): Temp Pulse Resp BP Pulse Ox 100.0 F H 93 H 17 122/67 98 07/23/16 20:00 07/23/16 22:00 07/23/16 22:00 07/23/16 22:00 07/23/16 22:00 - Medications Medications: Current Medications Acetaminophen (Tylenol 325mg Tab) 650 mg PO Q6 PRN PRN Reason: Pain, moderate (4-7) Last Admin: 07/23/16 00:30 Dose: 650 mg Acetaminophen (Tylenol 325mg Tab) 650 mg PO Q6 PRN PRN Reason: Fever >100.4 F Albuterol/Ipratropium (Duoneb 3 Mg/0.5 Mg (3 Ml) Ud) 3 ml INH RQ4 PRN PRN Reason: Shortness of Breath Allopurinol (Zyloprim) 100 mg PO DAILY [facility]S [facility] Last Admin: 07/23/16 10:08 Dose: 100 mg Ascorbic Acid (Vitamin C 500 Mg Tab) 1,000 mg PO DAILY [facility] 234 [facility]S [facility] Last Admin: 07/23/16 10:07 Dose: 1,000 mg Bismuth Subsalicylate (Pepto-Bismol) 524 mg PO Q6H PRN PRN Reason: Diarrhea Carvedilol (Coreg) 12.5 mg PO BID [facility] Last Admin: 07/23/16 17:17 Dose: 12.5 mg Dextrose (Dextrose 50% Inj) 0 ml IVP STAT PRN; Protocol PRN Reason: Hypoglycemia Protocol Ezetimibe (Zetia) 10 mg PO HS [facility]S [facility] Last Admin: 07/24/16 21:22 Dose: 10 mg Ergocalciferol (Drisdol 50,000 Intl Units Cap) 1 cap PO QWK [facility] 234 BEDS [facility] Glucagon (Glucagen Diagnostic Kit) 0 mg IM STAT PRN; Protocol PRN Reason: Hypoglycemia Protocol Vancomycin HCl 1 gm/ Sodium (Chloride) 250 mls @ 166.667 mls/hr IVPB Q72H [facility] 234 [facility]S [facility] Last Admin: 07/23/16 10:09 Dose: 166.667 mls/hr Amiodarone HCl 900 mg/ (Dextrose) 518 mls @ 34.53 mls/hr IVPB .Q15H1M [facility]; 1 MG /MIN PRN Reason: Protocol Insulin Detemir (Levemir) 25 units SC HS [facility] 234 [facility]S [facility] Last Admin: 07/24/16 21:22 Dose: 25 units Insulin Human Regular (Humulin R) 0 units SC ACHS [facility] PRN Reason: Protocol Last Admin: 07/24/16 21:29 Dose: Not Given Pantoprazole Sodium (Protonix Inj) 40 mg IVP DAILY [facility] 234 BEDS [facility] Last Admin: 07/23/16 11:00 Dose: 40 mg Sevelamer Carbonate (Renvela) 0.8 gm PO TID [facility] 234 BEDS [facility] Last Admin: 07/23/16 17:21 Dose: 0.8 gm Sitagliptin Phosphate (Januvia) 25 mg PO DAILY [facility] 234 BEDS [facility] Last Admin: 07/23/16 10:07 Dose: 25 mg Tamsulosin HCl (Flomax) 0.4 mg PO DAILY [facility] 234 BEDS [facility] Last Admin: 07/23/16 10:10 Dose: 0.4 mg Vitamin B Complex/Vit C/Folic Acid (Nephro-Carlitos) 1 tab PO DAILY [facility] 234 BEDS [facility] Last Admin: 07/23/16 10:06 Dose: 1 tab - Labs Labs: 07/23/16 06:00 07/23/16 06:00 PT 12.5 SECONDS (9.6-11.2) H 07/17/16 04:35 INR 1.20 (0.92-1.08) H 07/17/16 04:35 APTT 34.8 SECONDS (23.3-32.5) H 07/17/16 04:35 Assessment and Plan - Assessment and Plan (Free Text) Assessment: A ON CKD .. ESRD ON HD M W F ANEMIA OF CKD .. ON EPO VDRF .. ON VENT MULTIPLE CO MORBIDITIES C/O CURRENT CARE
[2016-07-25 05:03] LABS: BASO # 0.1 K/uL (0.0-0.2); BASO % 0.8 % (0.0-2.0); EOS # 0.1 K/uL (0.0-0.7); EOS % 0.6 % (0.0-4.0); HEMATOCRIT 26.3 % (35.0-51.0); LYMPH % 7.8 % (20.0-40.0); MEAN CELL VOLUME 84.9 fl (80.0-94.0); MEAN CORPUSCULAR HEMOGLOBIN 26.7 pg (27.0-31.0); MEAN CORPUSCULAR HGB CONC 31.5 g/dL (33.0-37.0); MONO # 0.6 K/uL (0.0-0.8); MONO % 5.2 % (0.0-10.0); NEUT # 10.8 K/uL (1.8-7.0); NEUT % 85.6 % (50.0-75.0); PLATELET COUNT 321 K/uL (130-400); RED CELL DISTRIBUTION WIDTH 18.5 % (11.5-14.5); WHITE BLOOD COUNT 12.6 K/uL (4.8-10.8)
[2016-07-25 05:11] LABS: ALB/GLOB RATIO 0.6 (1.0-2.1); BILIRUBIN,TOTAL 0.7 mg/dl (0.2-1.3); CALCIUM 7.5 mg/dL (8.4-10.2); POTASSIUM 4.8 MMOL/L (3.6-5.0)
[2016-07-25 05:37] LABS: ABG ALLEN TEST YES; ABG MECHANICAL RATE 10; ARTERIAL BLOOD GAS HCO3 26.1 mmol/L (21-28); ARTERIAL BLOOD GAS MODE PRVC/AC; ARTERIAL BLOOD GAS O2 CAPACITY 12.1 mL/dL (16-24); ARTERIAL BLOOD GAS O2 CONTENT 11.2 ML/dL (15-23); ARTERIAL BLOOD GAS PH 7.38 (7.35-7.45); ARTERIAL BLOOD GAS PO2 49 mm/Hg (80-100); ARTERIAL BLOOD HGB O2 SAT 89.2 % (95.0-98.0); ATERIAL BLOOD GAS PEEP 5; CARBOXYHEMOGLOBIN 1.7 % (0.5-1.5); HHB 7.5 % (0.0-5.0); METHEMOGLOBIN 1.6 % (0.0-3.0)
[2016-07-25] MEDS: Insulin Regular 100 units/ml SC SCH ×4 (06:47→21:56)
[2016-07-25 07:01] LABS: BASOPHIL 1 % (0-2); NEUTROPHIL 89 % (42-75); REACTIVE LYMPHOCYTES 1 % (0-0); TOTAL CELLS COUNTED 100
[2016-07-25 07:03] LABS: PLATELET CLUMPS PRESENT
[2016-07-25 09:01] LABS: ABG ALLEN TEST YES; ARTERIAL BLOOD GAS HCO3 27.4 mmol/L (21-28); ARTERIAL BLOOD GAS PH 7.42 (7.35-7.45); ARTERIAL BLOOD GAS PO2 130 mm/Hg (80-100)
[2016-07-25 09:02] LABS: ARTERIAL BLOOD HGB O2 SAT 97.5 % (95.0-98.0); CARBOXYHEMOGLOBIN 1.9 % (0.5-1.5)
[2016-07-25 09:03] LABS: ABG MECHANICAL RATE 10; ARTERIAL BLOOD GAS MODE AC; ATERIAL BLOOD GAS PEEP 5; HHB 0.7 % (0.0-5.0); METHEMOGLOBIN 1.3 % (0.0-3.0)
--- NOTE | 2016-07-25 09:41 | PN ---
DATE: 07/25/2016 The patient seen and examined. Interim events noted. Consults noted and appreciated. Case was discussed with the railway station manager. The patient remains in intensive care unit on the ventilator; not able to provide informative history or review of systems. PHYSICAL EXAMINATION: GENERAL: The patient is orally intubated on mechanical ventilation via endotracheal tube, tolerating current setting without any acute respiratory distress. VITAL SIGNS: Stable. HEART: S1, S2 normal, regular. LUNGS: Good bilateral air entry. ABDOMEN: Soft, nontender. EXTREMITIES: The patient has chronic venous changes. No calf swelling, no tenderness, no acute ischemia. CENTRAL NERVOUS SYSTEM: Essentially unchanged. DIAGNOSTIC DATA: Available diagnostic data reviewed. Telemetry monitoring does not reveal significant arrhythmias, although the patient had episode of atrial fib with rapid ventricular rate which was controlled with intravenous amiodarone. Overall, patient's general condition is essentially unchanged. Long-term functional prognosis remains poor. The patient may need tracheostomy for long- term ventilation management. PLAN: As ordered. Tang Solorio MD cc: [id number] TT: 07/25/2016 09:40:17 Confirmation # [id number] Dictation # [id number] suman MARTINEZ
[2016-07-25] MEDS: Sevelamer Carb 0.8 gm/Packet PO SCH ×4 (10:29→17:01)
[2016-07-25] MEDS: Multivitamin Vitamin B Complex (Nephro-Vite) Tab PO SCH (10:34)
--- NOTE | 2016-07-25 11:19 | CP.CCUPN ---
<Cee Garcia - Last Filed: 07/25/16 17:11> CCU Subjective - Physician Review Subjective (Free Text): 07/25/16 11:20 Patient seen and examined at bedside with ICU attending during morning rounds. Patient remains unresponsive to verbal/physical stimuli and on mechanical ventilation. Yesterday, patient was sent for MRI brain as requested by neurology , however he became bradycardic during imaging and test was subsequently delayed. His FiO2 was also increased overnight based on ABG with PO2 of 49. He was also febrile overnight to 103.1. but is currently afebrile and hemodynamically stable without pressors. Family has been notified and plans to visit today for further discussion. CCU Objective - Vital Signs / Intake & Output Vital Signs (Last 4 hours): Vital Signs Temp Pulse Resp BP Pulse Ox 07/25/16 08:00 99.1 F 103 H 23 108/61 100 Intake and Output (Last 8hrs): Intake & Output 07/24/16 07/25/16 07/25/16 22:59 06:59 14:59 Intake Total 220 640 114 Balance 220 640 114 Intake: IV 4 Intake, Piggyback 200 Tube Feeding 220 440 110 Other: # Voids Urine, Voided 1 - Physical Exam Head: Positive for: Atraumatic, Normocephalic Pupils: Positive for: Non-Reactive Extroacular Muscles: Negative for: EOMI Conjunctiva: Negative for: Injected, Icteric Mouth: Positive for: Dry Neck: Positive for: Other (Right IJ HD catheter site clean with no signs of erythema.) Respiratory/Chest: Positive for: Rhonchi, Tachypneic, Other (B/L air entry present but decreased at lung bases). Negative for: Wheezes Cardiovascular: Positive for: Regular Rate and Rhythm. Negative for: Murmurs Abdomen: Positive for: Normal Bowel Sounds. Negative for: Tenderness, Distention Genitourinary Male: Positive for: Other (Right groin TLC site clean, dry, with no surrounding erythema. ) Upper Extremity: Positive for: Edema (B/L upper extremity edema), Other ( Generalized anasarca) Lower Extremity: Positive for: Edema (3+ b/l LE), Other (Lower extremity YADIRA dressings.) Neurological: Positive for: Other (Unresponsive to verbal or painful stimuli. Pupils fixed. Corneal reflex present with occasional spontaneous blink. Mild gag reflex. Not moving extremities. ). Negative for: CN II-XII Intact Psychiatric: Negative for: Alert - Medications Active Medications: Active Medications Generic Name Dose Route Start Last Admin Trade Name Freq PRN Reason Stop Dose Admin Acetaminophen 650 mg 07/18/16 20:13 07/23/16 00:30 Tylenol 325mg Tab PO 650 mg Q6 PRN Administration Pain, moderate (4-7) Acetaminophen 650 mg 07/18/16 20:13 07/25/16 00:10 Tylenol 325mg Tab PO 650 mg Q6 PRN Administration Fever >100.4 F Albuterol/Ipratropium 3 ml 07/18/16 20:13 Duoneb 3 Mg/0.5 Mg (3 Ml) Ud INH RQ4 PRN Shortness of Breath Allopurinol 100 mg 07/19/16 09:00 07/25/16 10:32 Zyloprim PO 100 mg DAILY MARIA GUADALUPE Administration Ascorbic Acid 1,000 mg 07/23/16 09:00 07/25/16 10:30 Vitamin C 500 Mg Tab PO 1,000 mg DAILY MARIA GUADALUPE Administration Bismuth Subsalicylate 524 mg 07/18/16 20:13 Pepto-Bismol PO Q6H PRN Diarrhea Carvedilol 12.5 mg 07/19/16 09:00 07/25/16 10:27 Coreg PO 12.5 mg BID MARIA GUADALUPE Administration Dextrose 0 ml 07/18/16 20:13 Dextrose 50% Inj IVP STAT PRN Hypoglycemia Protocol Protocol Ezetimibe 10 mg 07/18/16 22:00 07/24/16 21:22 Zetia PO 10 mg HS MARIA GUADALUPE Administration Ergocalciferol 1 cap 07/18/16 20:13 Drisdol 50,000 Intl Units Cap PO QWK MARIA GUADALUPE Glucagon 0 mg 07/18/16 20:13 Glucagen Diagnostic Kit IM STAT PRN Hypoglycemia Protocol Protocol Vancomycin HCl 1 gm/ Sodium 250 mls @ 166.667 mls/hr 07/20/16 10:00 07/23/16 10:09 Chloride IVPB 166.667 mls/hr Q72H MARIA GUADALUPE Administration Amiodarone HCl 900 mg/ 518 mls @ 34.53 mls/hr 07/23/16 15:45 Dextrose IVPB .Q15H1M MARIA GUADALUPE Protocol 1 MG/MIN Insulin Detemir 25 units 07/18/16 22:00 07/24/16 21:22 Levemir SC 25 units HS MARIA GUADALUPE Administration Insulin Human Regular 0 units 07/19/16 06:45 07/25/16 06:47 Humulin R SC 6 units ACHS MARIA GUADALUPE Administration Protocol Pantoprazole Sodium 40 mg 07/20/16 09:00 07/25/16 10:29 Protonix Inj IVP 40 mg DAILY MARIA GUADALUPE Administration Sevelamer Carbonate 0.8 gm 07/19/16 09:00 07/25/16 10:29 Renvela PO 0.8 gm TID MARIA GUADALUPE Administration Sitagliptin Phosphate 25 mg 07/19/16 09:00 07/25/16 10:28 Januvia PO 25 mg DAILY MARIA GUADALUPE Administration Tamsulosin HCl 0.4 mg 07/19/16 09:00 07/25/16 10:28 Flomax PO 0.4 mg DAILY MARIA GUADALUPE Administration Vitamin B Complex/Vit C/Folic Acid 1 tab 07/23/16 09:00 07/25/16 10:34 Nephro-Carlitos PO Not Given DAILY MARIA GUADALUPE - Patient Studies Lab Studies: Lab Studies 07/25/16 07/25/16 07/25/16 Range/Units 10:56 05:29 04:20 WBC (4.8-10.8) K/uL RBC (4.40-5.90) Mil/uL Hgb (12.0-18.0) g/dL Hct (35.0-51.0) % MCV (80.0-94.0) fl MCH (27.0-31.0) pg MCHC (33.0-37.0) g/dL RDW (11.5-14.5) % Plt Count (130-400) K/uL MPV (7.2-11.7) fl Neut % (Auto) (50.0-75.0) % Lymph % (Auto) (20.0-40.0) % Baker % (Auto) (0.0-10.0) % Eos % (Auto) (0.0-4.0) % Baso % (Auto) (0.0-2.0) % Neut # (1.8-7.0) K/uL Lymph # (1.0-4.3) K/uL Baker # (0.0-0.8) K/uL Eos # (0.0-0.7) K/uL Baso # (0.0-0.2) K/uL Neutrophils % (Manual) (42-75) % Band Neutrophils % (0-2) % Lymphocytes % (Manual) (20-50) % Reactive Lymphs % (0-0) % Monocytes % (Manual) (0-10) % Basophils % (Manual) (0-2) % Platelet Estimate (NORMAL) Plt Clumps, EDTA Anisocytosis (manual) Target Cells Ovalocytes pCO2 46 H (35-45) mm/Hg pO2 49 L (80-100) mm/Hg HCO3 26.1 (21-28) mmol/L ABG pH 7.38 (7.35-7.45) ABG Total CO2 28.6 H (22-28) mmol/L ABG O2 Saturation 92.2 L (95-98) % ABG O2 Content 11.2 L (15-23) ML/dL ABG Base Excess 1.7 (-2.0-3.0) mmol/L ABG Hemoglobin 8.9 L (11.7-17.4) g/dL ABG Carboxyhemoglobin 1.7 H (0.5-1.5) % POC ABG HHb (Measured) 7.5 H (0.0-5.0) % ABG Methemoglobin 1.6 (0.0-3.0) % ABG O2 Capacity 12.1 L (16-24) mL/dL Mason Test Yes A-a O2 Difference 179.0 mm/Hg Hgb O2 Saturation 89.2 L (95.0-98.0) % Vent Mode Prvc/ac Mechanical Rate 10 FiO2 40.0 % Tidal Volume 500 PEEP 5 Sodium 139 (132-148) mmol/l Potassium 4.8 (3.6-5.0) MMOL/L Chloride 102 (98-107) mmol/L Carbon Dioxide 25 (22-30) mmol/L Anion Gap 17 (10-20) BUN 82 H (9-20) mg/dl Creatinine 6.0 H (0.8-1.5) mg/dL Est GFR ( Amer) 11 Est GFR (Non-Af Amer) 9 POC Glucose (mg/dL) 275 H (65-110) mg/dL Random Glucose 259 H (75-110) mg/dL Calcium 7.5 L (8.4-10.2) mg/dL Total Bilirubin 0.7 (0.2-1.3) mg/dl AST 54 (17-59) U/L ALT 36 (21-72) U/L Alkaline Phosphatase 294 H (38-126) U/L Total Protein 7.0 (6.3-8.2) G/DL Albumin 2.7 L (3.5-5.0) g/dL Globulin 4.3 H (2.2-3.9) gm/dL Albumin/Globulin Ratio 0.6 L (1.0-2.1) 07/25/16 07/24/16 07/24/16 Range/Units 04:20 21:28 16:37 WBC 12.6 H (4.8-10.8) K/uL RBC 3.10 L (4.40-5.90) Mil/uL Hgb 8.3 L (12.0-18.0) g/dL Hct 26.3 L (35.0-51.0) % MCV 84.9 (80.0-94.0) fl MCH 26.7 L (27.0-31.0) pg MCHC 31.5 L (33.0-37.0) g/dL RDW 18.5 H (11.5-14.5) % Plt Count 321 (130-400) K/uL MPV 8.0 (7.2-11.7) fl Neut % (Auto) 85.6 H (50.0-75.0) % Lymph % (Auto) 7.8 L (20.0-40.0) % Baker % (Auto) 5.2 (0.0-10.0) % Eos % (Auto) 0.6 (0.0-4.0) % Baso % (Auto) 0.8 (0.0-2.0) % Neut # 10.8 H (1.8-7.0) K/uL Lymph # 1.0 (1.0-4.3) K/uL Baker # 0.6 (0.0-0.8) K/uL Eos # 0.1 (0.0-0.7) K/uL Baso # 0.1 (0.0-0.2) K/uL Neutrophils % (Manual) 89 H (42-75) % Band Neutrophils % 5 H (0-2) % Lymphocytes % (Manual) 3 L (20-50) % Reactive Lymphs % 1 H (0-0) % Monocytes % (Manual) 1 (0-10) % Basophils % (Manual) 1 (0-2) % Platelet Estimate Normal (NORMAL) Plt Clumps, EDTA Present Anisocytosis (manual) Slight Target Cells Slight Ovalocytes Slight pCO2 (35-45) mm/Hg pO2 (80-100) mm/Hg HCO3 (21-28) mmol/L ABG pH (7.35-7.45) ABG Total CO2 (22-28) mmol/L ABG O2 Saturation (95-98) % ABG O2 Content (15-23) ML/dL ABG Base Excess (-2.0-3.0) mmol/L ABG Hemoglobin (11.7-17.4) g/dL ABG Carboxyhemoglobin (0.5-1.5) % POC ABG HHb (Measured) (0.0-5.0) % ABG Methemoglobin (0.0-3.0) % ABG O2 Capacity (16-24) mL/dL Mason Test A-a O2 Difference mm/Hg Hgb O2 Saturation (95.0-98.0) % Vent Mode Mechanical Rate FiO2 % Tidal Volume PEEP Sodium (132-148) mmol/l Potassium (3.6-5.0) MMOL/L Chloride (98-107) mmol/L Carbon Dioxide (22-30) mmol/L Anion Gap (10-20) BUN (9-20) mg/dl Creatinine (0.8-1.5) mg/dL Est GFR ( Amer) Est GFR (Non-Af Amer) POC Glucose (mg/dL) 252 H 177 H (65-110) mg/dL Random Glucose (75-110) mg/dL Calcium (8.4-10.2) mg/dL Total Bilirubin (0.2-1.3) mg/dl AST (17-59) U/L ALT (21-72) U/L Alkaline Phosphatase (38-126) U/L Total Protein (6.3-8.2) G/DL Albumin (3.5-5.0) g/dL Globulin (2.2-3.9) gm/dL Albumin/Globulin Ratio (1.0-2.1) 07/24/16 07/24/16 07/24/16 Range/Units 10:58 06:00 04:00 WBC (4.8-10.8) K/uL RBC (4.40-5.90) Mil/uL Hgb (12.0-18.0) g/dL Hct (35.0-51.0) % MCV (80.0-94.0) fl MCH (27.0-31.0) pg MCHC (33.0-37.0) g/dL RDW (11.5-14.5) % Plt Count (130-400) K/uL MPV (7.2-11.7) fl Neut % (Auto) (50.0-75.0) % Lymph % (Auto) (20.0-40.0) % Baker % (Auto) (0.0-10.0) % Eos % (Auto) (0.0-4.0) % Baso % (Auto) (0.0-2.0) % Neut # (1.8-7.0) K/uL Lymph # (1.0-4.3) K/uL Baker # (0.0-0.8) K/uL Eos # (0.0-0.7) K/uL Baso # (0.0-0.2) K/uL Neutrophils % (Manual) (42-75) % Band Neutrophils % (0-2) % Lymphocytes % (Manual) (20-50) % Reactive Lymphs % (0-0) % Monocytes % (Manual) (0-10) % Basophils % (Manual) (0-2) % Platelet Estimate (NORMAL) Plt Clumps, EDTA Anisocytosis (manual) Target Cells Ovalocytes pCO2 43 (35-45) mm/Hg pO2 130 H (80-100) mm/Hg HCO3 27.4 (21-28) mmol/L ABG pH 7.42 (7.35-7.45) ABG Total CO2 29.2 H (22-28) mmol/L ABG O2 Saturation 100.0 H (95-98) % ABG O2 Content (15-23) ML/dL ABG Base Excess 3.1 H (-2.0-3.0) mmol/L ABG Hemoglobin 8.4 L (11.7-17.4) g/dL ABG Carboxyhemoglobin 1.9 H (0.5-1.5) % POC ABG HHb (Measured) 0.7 (0.0-5.0) % ABG Methemoglobin 1.3 (0.0-3.0) % ABG O2 Capacity (16-24) mL/dL Mason Test Yes A-a O2 Difference mm/Hg Hgb O2 Saturation 97.5 (95.0-98.0) % Vent Mode Ac Mechanical Rate 10 FiO2 40 % Tidal Volume 500 PEEP 5 Sodium 140 (132-148) mmol/l Potassium 4.1 (3.6-5.0) MMOL/L Chloride 103 (98-107) mmol/L Carbon Dioxide 27 (22-30) mmol/L Anion Gap 14 (10-20) BUN 65 H (9-20) mg/dl Creatinine 4.9 H (0.8-1.5) mg/dL Est GFR ( Amer) 14 Est GFR (Non-Af Amer) 11 POC Glucose (mg/dL) 259 H (65-110) mg/dL Random Glucose 236 H (75-110) mg/dL Calcium 7.6 L (8.4-10.2) mg/dL Total Bilirubin 0.6 (0.2-1.3) mg/dl AST 80 H D (17-59) U/L ALT 40 (21-72) U/L Alkaline Phosphatase 303 H (38-126) U/L Total Protein 6.7 (6.3-8.2) G/DL Albumin 2.5 L (3.5-5.0) g/dL Globulin 4.1 H (2.2-3.9) gm/dL Albumin/Globulin Ratio 0.6 L (1.0-2.1) 07/24/16 Range/Units 04:00 WBC 10.2 (4.8-10.8) K/uL RBC 3.03 L (4.40-5.90) Mil/uL Hgb 8.1 L (12.0-18.0) g/dL Hct 25.7 L (35.0-51.0) % MCV 85.0 (80.0-94.0) fl MCH 26.6 L (27.0-31.0) pg MCHC 31.3 L (33.0-37.0) g/dL RDW 18.5 H (11.5-14.5) % Plt Count 304 (130-400) K/uL MPV (7.2-11.7) fl Neut % (Auto) (50.0-75.0) % Lymph % (Auto) (20.0-40.0) % Baker % (Auto) (0.0-10.0) % Eos % (Auto) (0.0-4.0) % Baso % (Auto) (0.0-2.0) % Neut # (1.8-7.0) K/uL Lymph # (1.0-4.3) K/uL Baker # (0.0-0.8) K/uL Eos # (0.0-0.7) K/uL Baso # (0.0-0.2) K/uL Neutrophils % (Manual) (42-75) % Band Neutrophils % (0-2) % Lymphocytes % (Manual) (20-50) % Reactive Lymphs % (0-0) % Monocytes % (Manual) (0-10) % Basophils % (Manual) (0-2) % Platelet Estimate (NORMAL) Plt Clumps, EDTA Anisocytosis (manual) Target Cells Ovalocytes pCO2 (35-45) mm/Hg pO2 (80-100) mm/Hg HCO3 (21-28) mmol/L ABG pH (7.35-7.45) ABG Total CO2 (22-28) mmol/L ABG O2 Saturation (95-98) % ABG O2 Content (15-23) ML/dL ABG Base Excess (-2.0-3.0) mmol/L ABG Hemoglobin (11.7-17.4) g/dL ABG Carboxyhemoglobin (0.5-1.5) % POC ABG HHb (Measured) (0.0-5.0) % ABG Methemoglobin (0.0-3.0) % ABG O2 Capacity (16-24) mL/dL Mason Test A-a O2 Difference mm/Hg Hgb O2 Saturation (95.0-98.0) % Vent Mode Mechanical Rate FiO2 % Tidal Volume PEEP Sodium (132-148) mmol/l Potassium (3.6-5.0) MMOL/L Chloride (98-107) mmol/L Carbon Dioxide (22-30) mmol/L Anion Gap (10-20) BUN (9-20) mg/dl Creatinine (0.8-1.5) mg/dL Est GFR ( Amer) Est GFR (Non-Af Amer) POC Glucose (mg/dL) (65-110) mg/dL Random Glucose (75-110) mg/dL Calcium (8.4-10.2) mg/dL Total Bilirubin (0.2-1.3) mg/dl AST (17-59) U/L ALT (21-72) U/L Alkaline Phosphatase (38-126) U/L Total Protein (6.3-8.2) G/DL Albumin (3.5-5.0) g/dL Globulin (2.2-3.9) gm/dL Albumin/Globulin Ratio (1.0-2.1) Laboratory Results - last 24 hr 07/24/16 07/24/16 07/24/16 04:00 04:00 06:00 WBC 10.2 RBC 3.03 L Hgb 8.1 L Hct 25.7 L MCV 85.0 MCH 26.6 L MCHC 31.3 L RDW 18.5 H Plt Count 304 MPV Neut % (Auto) Lymph % (Auto) Baker % (Auto) Eos % (Auto) Baso % (Auto) Neut # Lymph # Baker # Eos # Baso # Neutrophils % (Manual) Band Neutrophils % Lymphocytes % (Manual) Reactive Lymphs % Monocytes % (Manual) Basophils % (Manual) Platelet Estimate Plt Clumps, EDTA Anisocytosis (manual) Target Cells Ovalocytes pCO2 43 pO2 130 H HCO3 27.4 ABG pH 7.42 ABG Total CO2 29.2 H ABG O2 Saturation 100.0 H ABG O2 Content ABG Base Excess 3.1 H ABG Hemoglobin 8.4 L ABG Carboxyhemoglobin 1.9 H POC ABG HHb (Measured) 0.7 ABG Methemoglobin 1.3 ABG O2 Capacity Mason Test Yes A-a O2 Difference Hgb O2 Saturation 97.5 Vent Mode Ac Mechanical Rate 10 FiO2 40 Tidal Volume 500 PEEP 5 Sodium 140 Potassium 4.1 Chloride 103 Carbon Dioxide 27 Anion Gap 14 BUN 65 H Creatinine 4.9 H Est GFR ( Amer) 14 Est GFR (Non-Af Amer) 11 POC Glucose (mg/dL) Random Glucose 236 H Calcium 7.6 L Total Bilirubin 0.6 AST 80 H D ALT 40 Alkaline Phosphatase 303 H Total Protein 6.7 Albumin 2.5 L Globulin 4.1 H Albumin/Globulin Ratio 0.6 L 07/24/16 07/24/16 07/24/16 10:58 16:37 21:28 WBC RBC Hgb Hct MCV MCH MCHC RDW Plt Count MPV Neut % (Auto) Lymph % (Auto) Baker % (Auto) Eos % (Auto) Baso % (Auto) Neut # Lymph # Baker # Eos # Baso # Neutrophils % (Manual) Band Neutrophils % Lymphocytes % (Manual) Reactive Lymphs % Monocytes % (Manual) Basophils % (Manual) Platelet Estimate Plt Clumps, EDTA Anisocytosis (manual) Target Cells Ovalocytes pCO2 pO2 HCO3 ABG pH ABG Total CO2 ABG O2 Saturation ABG O2 Content ABG Base Excess ABG Hemoglobin ABG Carboxyhemoglobin POC ABG HHb (Measured) ABG Methemoglobin ABG O2 Capacity Mason Test A-a O2 Difference Hgb O2 Saturation Vent Mode Mechanical Rate FiO2 Tidal Volume PEEP Sodium Potassium Chloride Carbon Dioxide Anion Gap BUN Creatinine Est GFR ( Amer) Est GFR (Non-Af Amer) POC Glucose (mg/dL) 259 H 177 H 252 H Random Glucose Calcium Total Bilirubin AST ALT Alkaline Phosphatase Total Protein Albumin Globulin Albumin/Globulin Ratio 07/25/16 07/25/16 07/25/16 04:20 04:20 05:29 WBC 12.6 H RBC 3.10 L Hgb 8.3 L Hct 26.3 L MCV 84.9 MCH 26.7 L MCHC 31.5 L RDW 18.5 H Plt Count 321 MPV 8.0 Neut % (Auto) 85.6 H Lymph % (Auto) 7.8 L Baker % (Auto) 5.2 Eos % (Auto) 0.6 Baso % (Auto) 0.8 Neut # 10.8 H Lymph # 1.0 Baker # 0.6 Eos # 0.1 Baso # 0.1 Neutrophils % (Manual) 89 H Band Neutrophils % 5 H Lymphocytes % (Manual) 3 L Reactive Lymphs % 1 H Monocytes % (Manual) 1 Basophils % (Manual) 1 Platelet Estimate Normal Plt Clumps, EDTA Present Anisocytosis (manual) Slight Target Cells Slight Ovalocytes Slight pCO2 46 H pO2 49 L HCO3 26.1 ABG pH 7.38 ABG Total CO2 28.6 H ABG O2 Saturation 92.2 L ABG O2 Content 11.2 L ABG Base Excess 1.7 ABG Hemoglobin 8.9 L ABG Carboxyhemoglobin 1.7 H POC ABG HHb (Measured) 7.5 H ABG Methemoglobin 1.6 ABG O2 Capacity 12.1 L Mason Test Yes A-a O2 Difference 179.0 Hgb O2 Saturation 89.2 L Vent Mode Prvc/ac Mechanical Rate 10 FiO2 40.0 Tidal Volume 500 PEEP 5 Sodium 139 Potassium 4.8 Chloride 102 Carbon Dioxide 25 Anion Gap 17 BUN 82 H Creatinine 6.0 H Est GFR ( Amer) 11 Est GFR (Non-Af Amer) 9 POC Glucose (mg/dL) Random Glucose 259 H Calcium 7.5 L Total Bilirubin 0.7 AST 54 ALT 36 Alkaline Phosphatase 294 H Total Protein 7.0 Albumin 2.7 L Globulin 4.3 H Albumin/Globulin Ratio 0.6 L 07/25/16 10:56 WBC RBC Hgb Hct MCV MCH MCHC RDW Plt Count MPV Neut % (Auto) Lymph % (Auto) Baker % (Auto) Eos % (Auto) Baso % (Auto) Neut # Lymph # Baker # Eos # Baso # Neutrophils % (Manual) Band Neutrophils % Lymphocytes % (Manual) Reactive Lymphs % Monocytes % (Manual) Basophils % (Manual) Platelet Estimate Plt Clumps, EDTA Anisocytosis (manual) Target Cells Ovalocytes pCO2 pO2 HCO3 ABG pH ABG Total CO2 ABG O2 Saturation ABG O2 Content ABG Base Excess ABG Hemoglobin ABG Carboxyhemoglobin POC ABG HHb (Measured) ABG Methemoglobin ABG O2 Capacity Mason Test A-a O2 Difference Hgb O2 Saturation Vent Mode Mechanical Rate FiO2 Tidal Volume PEEP Sodium Potassium Chloride Carbon Dioxide Anion Gap BUN Creatinine Est GFR ( Amer) Est GFR (Non-Af Amer) POC Glucose (mg/dL) 275 H Random Glucose Calcium Total Bilirubin AST ALT Alkaline Phosphatase Total Protein Albumin Globulin Albumin/Globulin Ratio Fingerstick Blood Sugar Results: 268 Review of Systems - Review of Systems Systems not reviewed;Unavailable: Intubated Assessment/Plan - Assessment and Plan (Free Text) Assessment: 80 y/o with PMH including HTN, DM2, Hyperlipidemia, Morbid obesity, CKD Stage IV presented to [facility] for 2 weeks of progressive abdominal pain, lower extremity erythema and generalized malaise. He was subsequently admitted for lower extremity cellulitis, possible cholecystitis and acute on chronic CKD associated with multiple electrolyte abnormalities. During admission, patient had signs of lethargy and was sent for CT Head and Chest, during which an ELECTROLYSIS ENGINEER was called. ELECTROLYSIS ENGINEER converted to code blue for cardiac/respiratory arrest. Patient was coded for 10 minutes and was intubated, with return of spontaneous circulation. Patient was then transferred to ICU on 07/14/16. Since then, patient has been intubated, unresponsive and septic. 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 Current ICU day 12. Plan: Anoxic Brain Injury -Secondary to cardiac arrest for over 10 minutes with hypoxemia on 07/14/16 -Absent pupillary response. Corneal reflex present. Dolls eyes negative. Gag reflex absent however carinal reflex can be elicited. 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 -Patient intubated on 07/14/16 due to cardiac/respiratory arrest -Currently on mechanical ventilation, day 12 -Vent settings yesterday 10/500/5/40%, however FiO2 increased to 80% overnight due to decreased PO2 of 49 on ABG -Patient remains breathing over vent at RR of 18, tolerating well with O2 sat of 100% -Despite stable spontaneous breathing pattern, patient not a good candidate for extubation due to inability to protect airway. -If family wishes to continue full code status, will consider early tracheostomy and PICC moving forward Sepsis, with Strep Anginosus Bacteremia -Etiology secondary to GI vs Aspiration pneumonia -Tmax 24 hrs: 103.1F, WBC: 12.6 -Blood culture from 07/09 detected strep anginosus sensitive to Vancomycin -Venous blood culture obtained overnight during febrile episode -Will obtain blood cultures today from IJ during dialysis and femoral line -Vancomycin trough for today prior to dialysis -Has required phenylephrine pressor earlier in admission however is currently off pressors -Currently on empiric abx: Vancomycin 1gm IV Q72h (Since 07/13) and Zosyn 2.25 gm IV Q8h (Started 07/11, day 15) Acute on Chronic Kidney Failure -Has been following with nephrology, Dr Morse as outpatient -BUN/Cr: 82/6.0 -Started on HD during admission, which patient has been receiving on MWF schedule. Nephro recently added additional dialysis for Saturdays -For scheduled dialysis today Paroxysmal Atrial Fibrillation -Had episodes of afib during dialysis which resolved with amiodarone. -Rate controlled. Sinus rhythm today. Will monitor. Feeds -Nepro via OGT DVT Prophylaxis -Heparin 5,000units SC Q8H Code Status -Full code <[email or web address] Opal - Last Filed: 07/25/16 17:59> CCU Subjective - Physician Review Subjective (Free Text): Attestation: Patient seen and examined at the bedside with Resident Dr. Sung Garcia; and I agree with his outline of plans and management documented as discussed on AM rounds reflecting my review of all applicable clinical data, and participation in the care of the patient throughout the day in ICU; today, July 25, 2016.
--- NOTE | 2016-07-25 12:14 | CP.PCM.CON ---
History of Present Illness - History of Present Illness History of Present Illness: General Surgery Consult - Dr. Roa Re: Trach 80M w/ hx HTN, DM2, CKD, Morbid Obesity, who was admitted to the hospital on 07/10 with abdominal distension and general malaise. Surgery was initially consulted for poss. cholecystitis, which was ruled out. Per documentation pt had become increasingly lethargic and was sent for a CT Head on 07/14. While at CT pt became a code blue, was coded for 10 minutes and intubated with ROSC. He has remained intubated and unresponsive since, likely d/t anoxic brain injury. Currently pt is off all pressors, on vent w/ 5 Peep, 80% FiO2 which was increased yesterday from 40% d/t low PO2. Family has been made aware of pt.s condition and thus far has wished for all measures to be done. Surgery is consulted for Tracheostomy and PEG. Review of Systems - Review of Systems Systems not reviewed;Unavailable: Intubated Past Patient History - Past Medical History & Family History Past Medical History?: Yes - Past Social History Smoking Status: Never Smoked - CARDIAC Hx Hypertension: Yes - RENAL Hx Renal Failure: Yes - ENDOCRINE/METABOLIC Hx Endocrine Disorders: Yes Hx Diabetes Mellitus Type 2: Yes - HEMATOLOGICAL/ONCOLOGICAL Hx Blood Disorders: Yes - MUSCULOSKELETAL/RHEUMATOLOGICAL Hx Falls: No - GENITOURINARY/GYNECOLOGICAL Hx Prostate Problems: Yes (BPH) - PSYCHIATRIC Hx Substance Use: No - ANESTHESIA Hx Anesthesia: No Hx Anesthesia Reactions: No Meds Allergies/Adverse Reactions: Allergies Allergy/AdvReac Type Severity Reaction Status Date / Time No Known Allergies Allergy Verified 07/09/16 20:05 - Medications Medications: Current Medications Acetaminophen (Tylenol 325mg Tab) 650 mg PO Q6 PRN PRN Reason: Pain, moderate (4-7) Last Admin: 07/23/16 00:30 Dose: 650 mg Acetaminophen (Tylenol 325mg Tab) 650 mg PO Q6 PRN PRN Reason: Fever >100.4 F Last Admin: 07/25/16 00:10 Dose: 650 mg Albuterol/Ipratropium (Duoneb 3 Mg/0.5 Mg (3 Ml) Ud) 3 ml INH RQ4 PRN PRN Reason: Shortness of Breath Allopurinol (Zyloprim) 100 mg PO DAILY [facility] Last Admin: 07/25/16 10:32 Dose: 100 mg Ascorbic Acid (Vitamin C 500 Mg Tab) 1,000 mg PO DAILY [facility] Last Admin: 07/25/16 10:30 Dose: 1,000 mg Bismuth Subsalicylate (Pepto-Bismol) 524 mg PO Q6H PRN PRN Reason: Diarrhea Carvedilol (Coreg) 12.5 mg PO BID [facility] Last Admin: 07/25/16 10:27 Dose: 12.5 mg Dextrose (Dextrose 50% Inj) 0 ml IVP STAT PRN; Protocol PRN Reason: Hypoglycemia Protocol Ezetimibe (Zetia) 10 mg PO HS [facility] Last Admin: 07/24/16 21:22 Dose: 10 mg Ergocalciferol (Drisdol 50,000 Intl Units Cap) 1 cap PO QWK [facility] Glucagon (Glucagen Diagnostic Kit) 0 mg IM STAT PRN; Protocol PRN Reason: Hypoglycemia Protocol Vancomycin HCl 1 gm/ Sodium (Chloride) 250 mls @ 166.667 mls/hr IVPB Q72H [facility] Last Admin: 07/23/16 10:09 Dose: 166.667 mls/hr Amiodarone HCl 900 mg/ (Dextrose) 518 mls @ 34.53 mls/hr IVPB .Q15H1M [facility]ALU[facility]; 1 MG /MIN PRN Reason: Protocol Insulin Detemir (Levemir) 25 units SC HS [facility] Last Admin: 07/24/16 21:22 Dose: 25 units Insulin Human Regular (Humulin R) 0 units SC ACHS [facility] PRN Reason: Protocol Last Admin: 07/25/16 11:35 Dose: 6 units Pantoprazole Sodium (Protonix Inj) 40 mg IVP DAILY [facility] Last Admin: 07/25/16 10:29 Dose: 40 mg Sevelamer Carbonate (Renvela) 0.8 gm PO TID [facility] Last Admin: 07/25/16 10:29 Dose: 0.8 gm Sitagliptin Phosphate (Januvia) 25 mg PO DAILY [facility] Last Admin: 07/25/16 10:28 Dose: 25 mg Tamsulosin HCl (Flomax) 0.4 mg PO DAILY [facility] Last Admin: 07/25/16 10:28 Dose: 0.4 mg Vitamin B Complex/Vit C/Folic Acid (Nephro-Carlitos) 1 tab PO DAILY [facility] Last Admin: 05/19/17 10:34 Dose: Not Given Physical Exam - Constitutional Appears: No Acute Distress - Head Exam Head Exam: ATRAUMATIC, NORMAL INSPECTION, NORMOCEPHALIC - Neck Exam Neck exam: Positive for: Normal Inspection - Respiratory Exam Respiratory Exam: NORMAL BREATHING PATTERN Additional comments: on Vent - Cardiovascular Exam Cardiovascular Exam: Tachycardia - GI/Abdominal Exam GI & Abdominal Exam: Distended, Soft - Neurological Exam Additional comments: Unresponsive - Skin Skin Exam: Dry, Intact Results - Vital Signs Recent Vital Signs: Last Vital Signs Temp 99.1 F 07/25/16 08:00 Pulse 97 H 07/25/16 10:00 Resp 25 H 07/25/16 10:00 BP 105/62 07/25/16 10:00 Pulse Ox 100 07/25/16 10:00 - Labs Result Diagrams: 07/25/16 04:20 07/25/16 04:20 Labs: Laboratory Results - last 24 hr 07/24/16 07/24/16 07/24/16 04:00 04:00 06:00 WBC 10.2 RBC 3.03 L Hgb 8.1 L Hct 25.7 L MCV 85.0 MCH 26.6 L MCHC 31.3 L RDW 18.5 H Plt Count 304 MPV Neut % (Auto) Lymph % (Auto) [place] % (Auto) Eos % (Auto) Baso % (Auto) Neut # Lymph # [place] # Eos # Baso # Neutrophils % (Manual) Band Neutrophils % Lymphocytes % (Manual) Reactive Lymphs % Monocytes % (Manual) Basophils % (Manual) Platelet Estimate Plt Clumps, EDTA Anisocytosis (manual) Target Cells Ovalocytes pCO2 43 pO2 130 H HCO3 27.4 ABG pH 7.42 ABG Total CO2 29.2 H ABG O2 Saturation 100.0 H ABG O2 Content ABG Base Excess 3.1 H ABG Hemoglobin 8.4 L ABG Carboxyhemoglobin 1.9 H POC ABG HHb (Measured) 0.7 ABG Methemoglobin 1.3 ABG O2 Capacity Mason Test Yes A-a O2 Difference Hgb O2 Saturation 97.5 Vent Mode Ac Mechanical Rate 10 FiO2 40 Tidal Volume 500 PEEP 5 Sodium 140 Potassium 4.1 Chloride 103 Carbon Dioxide 27 Anion Gap 14 BUN 65 H Creatinine 4.9 H Est GFR ( Amer) 14 Est GFR (Non-Af Amer) 11 POC Glucose (mg/dL) Random Glucose 236 H Calcium 7.6 L Total Bilirubin 0.6 AST 80 H D ALT 40 Alkaline Phosphatase 303 H Total Protein 6.7 Albumin 2.5 L Globulin 4.1 H Albumin/Globulin Ratio 0.6 L 07/24/16 07/24/16 07/24/16 10:58 16:37 21:28 WBC RBC Hgb Hct MCV MCH MCHC RDW Plt Count MPV Neut % (Auto) Lymph % (Auto) [place] % (Auto) Eos % (Auto) Baso % (Auto) Neut # Lymph # [place] # Eos # Baso # Neutrophils % (Manual) Band Neutrophils % Lymphocytes % (Manual) Reactive Lymphs % Monocytes % (Manual) Basophils % (Manual) Platelet Estimate Plt Clumps, EDTA Anisocytosis (manual) Target Cells Ovalocytes pCO2 pO2 HCO3 ABG pH ABG Total CO2 ABG O2 Saturation ABG O2 Content ABG Base Excess ABG Hemoglobin ABG Carboxyhemoglobin POC ABG HHb (Measured) ABG Methemoglobin ABG O2 Capacity Mason Test A-a O2 Difference Hgb O2 Saturation Vent Mode Mechanical Rate FiO2 Tidal Volume PEEP Sodium Potassium Chloride Carbon Dioxide Anion Gap BUN Creatinine Est GFR ( Amer) Est GFR (Non-Af Amer) POC Glucose (mg/dL) 259 H 177 H 252 H Random Glucose Calcium Total Bilirubin AST ALT Alkaline Phosphatase Total Protein Albumin Globulin Albumin/Globulin Ratio 07/25/16 07/25/16 07/25/16 04:20 04:20 05:29 WBC 12.6 H RBC 3.10 L Hgb 8.3 L Hct 26.3 L MCV 84.9 MCH 26.7 L MCHC 31.5 L RDW 18.5 H Plt Count 321 MPV 8.0 Neut % (Auto) 85.6 H Lymph % (Auto) 7.8 L [place] % (Auto) 5.2 Eos % (Auto) 0.6 Baso % (Auto) 0.8 Neut # 10.8 H Lymph # 1.0 [place] # 0.6 Eos # 0.1 Baso # 0.1 Neutrophils % (Manual) 89 H Band Neutrophils % 5 H Lymphocytes % (Manual) 3 L Reactive Lymphs % 1 H Monocytes % (Manual) 1 Basophils % (Manual) 1 Platelet Estimate Normal Plt Clumps, EDTA Present Anisocytosis (manual) Slight Target Cells Slight Ovalocytes Slight pCO2 46 H pO2 49 L HCO3 26.1 ABG pH 7.38 ABG Total CO2 28.6 H ABG O2 Saturation 92.2 L ABG O2 Content 11.2 L ABG Base Excess 1.7 ABG Hemoglobin 8.9 L ABG Carboxyhemoglobin 1.7 H POC ABG HHb (Measured) 7.5 H ABG Methemoglobin 1.6 ABG O2 Capacity 12.1 L Mason Test Yes A-a O2 Difference 179.0 Hgb O2 Saturation 89.2 L Vent Mode Prvc/ac Mechanical Rate 10 FiO2 40.0 Tidal Volume 500 PEEP 5 Sodium 139 Potassium 4.8 Chloride 102 Carbon Dioxide 25 Anion Gap 17 BUN 82 H Creatinine 6.0 H Est GFR ( Amer) 11 Est GFR (Non-Af Amer) 9 POC Glucose (mg/dL) Random Glucose 259 H Calcium 7.5 L Total Bilirubin 0.7 AST 54 ALT 36 Alkaline Phosphatase 294 H Total Protein 7.0 Albumin 2.7 L Globulin 4.3 H Albumin/Globulin Ratio 0.6 L 07/25/16 10:56 WBC RBC Hgb Hct MCV MCH MCHC RDW Plt Count MPV Neut % (Auto) Lymph % (Auto) [place] % (Auto) Eos % (Auto) Baso % (Auto) Neut # Lymph # [place] # Eos # Baso # Neutrophils % (Manual) Band Neutrophils % Lymphocytes % (Manual) Reactive Lymphs % Monocytes % (Manual) Basophils % (Manual) Platelet Estimate Plt Clumps, EDTA Anisocytosis (manual) Target Cells Ovalocytes pCO2 pO2 HCO3 ABG pH ABG Total CO2 ABG O2 Saturation ABG O2 Content ABG Base Excess ABG Hemoglobin ABG Carboxyhemoglobin POC ABG HHb (Measured) ABG Methemoglobin ABG O2 Capacity Mason Test A-a O2 Difference Hgb O2 Saturation Vent Mode Mechanical Rate FiO2 Tidal Volume PEEP Sodium Potassium Chloride Carbon Dioxide Anion Gap BUN Creatinine Est GFR ( Amer) Est GFR (Non-Af Amer) POC Glucose (mg/dL) 275 H Random Glucose Calcium Total Bilirubin AST ALT Alkaline Phosphatase Total Protein Albumin Globulin Albumin/Globulin Ratio Assessment & Plan - Assessment and Plan (Free Text) Assessment: 80M w/ acute on chronic CKD, s/p code blue w/ acute resp failure and anoxic brain injury, intubated since 07/14 -Family to be in later today to discuss care -Continue to wean down Fio2, goal of 40% -If family wishes to pursue will plan for Tracheostomy next week -PEG to be done by GI unless they are unable to do so DW Dr. Crispin Triplett PGY2
--- NOTE | 2016-07-25 12:37 | CP.PCM.PN ---
Subjective - Date & Time of Evaluation Date of Evaluation: 07/25/16 Time of Evaluation: 07:00 - Subjective Subjective: comatose on vent Dr Morse on board for renal no new positive cultures fever + IV rx in progress Objective - Vital Signs/Intake and Output Vital Signs (last 24 hours): Temp Pulse Resp BP Pulse Ox 100.9 F H 97 H 27 H 109/63 100 07/25/16 12:00 07/25/16 12:00 07/25/16 12:00 07/25/16 12:00 07/25/16 12:00 Intake and Output: 07/25/16 07/25/16 06:59 18:59 Intake Total 860 534 Balance 860 534 - Medications Medications: Current Medications Acetaminophen (Tylenol 325mg Tab) 650 mg PO Q6 PRN PRN Reason: Pain, moderate (4-7) Last Admin: 07/23/16 00:30 Dose: 650 mg Acetaminophen (Tylenol 325mg Tab) 650 mg PO Q6 PRN PRN Reason: Fever >100.4 F Last Admin: 07/25/16 00:10 Dose: 650 mg Albuterol/Ipratropium (Duoneb 3 Mg/0.5 Mg (3 Ml) Ud) 3 ml INH RQ4 PRN PRN Reason: Shortness of Breath Allopurinol (Zyloprim) 100 mg PO DAILY [facility] Last Admin: 07/25/16 10:32 Dose: 100 mg Ascorbic Acid (Vitamin C 500 Mg Tab) 1,000 mg PO DAILY [facility] Last Admin: 07/25/16 10:30 Dose: 1,000 mg Bismuth Subsalicylate (Pepto-Bismol) 524 mg PO Q6H PRN PRN Reason: Diarrhea Carvedilol (Coreg) 12.5 mg PO BID [facility] Last Admin: 07/25/16 10:27 Dose: 12.5 mg Dextrose (Dextrose 50% Inj) 0 ml IVP STAT PRN; Protocol PRN Reason: Hypoglycemia Protocol Ezetimibe (Zetia) 10 mg PO HS [facility] Last Admin: 07/24/16 21:22 Dose: 10 mg Ergocalciferol (Drisdol 50,000 Intl Units Cap) 1 cap PO QWK [facility] Glucagon (Glucagen Diagnostic Kit) 0 mg IM STAT PRN; Protocol PRN Reason: Hypoglycemia Protocol Vancomycin HCl 1 gm/ Sodium (Chloride) 250 mls @ 166.667 mls/hr IVPB Q72H [facility] Last Admin: 07/23/16 10:09 Dose: 166.667 mls/hr Amiodarone HCl 900 mg/ (Dextrose) 518 mls @ 34.53 mls/hr IVPB .Q15H1M [facility]ALU[facility]; 1 MG /MIN PRN Reason: Protocol Insulin Detemir (Levemir) 25 units SC HS [facility] Last Admin: 07/24/16 21:22 Dose: 25 units Insulin Human Regular (Humulin R) 0 units SC ACHS [facility] PRN Reason: Protocol Last Admin: 07/25/16 11:35 Dose: 6 units Pantoprazole Sodium (Protonix Inj) 40 mg IVP DAILY [facility] Last Admin: 07/25/16 10:29 Dose: 40 mg Sevelamer Carbonate (Renvela) 0.8 gm PO TID [facility] Last Admin: 07/25/16 10:29 Dose: 0.8 gm Sitagliptin Phosphate (Januvia) 25 mg PO DAILY [facility] Last Admin: 07/25/16 10:28 Dose: 25 mg Tamsulosin HCl (Flomax) 0.4 mg PO DAILY [facility] Last Admin: 07/25/16 10:28 Dose: 0.4 mg Vitamin B Complex/Vit C/Folic Acid (Nephro-Carlitos) 1 tab PO DAILY [facility] Last Admin: 07/25/16 10:34 Dose: Not Given - Labs Labs: 07/25/16 04:20 07/25/16 04:20 PT 12.5 SECONDS (9.6-11.2) H 07/17/16 04:35 INR 1.20 (0.92-1.08) H 07/17/16 04:35 APTT 34.8 SECONDS (23.3-32.5) H 07/17/16 04:35 - Constitutional Appears: Non-toxic, Chronically Ill - Eye Exam Eye Exam: PERRL - ENT Exam ENT Exam: Mucous Membranes Dry - Neck Exam Neck Exam: absent: Lymphadenopathy - Respiratory Exam Respiratory Exam: Decreased Breath Sounds - Cardiovascular Exam Cardiovascular Exam: REGULAR RHYTHM, +S1, +S2 - GI/Abdominal Exam GI & Abdominal Exam: Distended, Soft - Rectal Exam Rectal Exam: Deferred - Extremities Exam Extremities Exam: absent: Pedal Edema - Back Exam Back Exam: absent: CVA tenderness (L), CVA tenderness (R) Assessment and Plan (1) Acute kidney failure Status: Acute (2) Cellulitis of right lower extremity Status: Acute (3) Bacteremia Status: Acute (4) Bacteremia Status: Acute - Assessment and Plan (Free Text) Assessment: will reculture
[2016-07-25] MEDS ORDERED: Sodium Chloride 3% for Inhalation 4 ML VIAL.NEB IH PRN (12:41)
--- NOTE | 2016-07-25 16:37 | RAD ---
HISTORY: intubated COMPARISON: Comparison made with prior study 07/24/2016 FINDINGS: LUNGS: In situ ETT, tip of which lies approximately 2.6 cm above chandrakant. NGT is present as well, the tip of which has been excluded from the film though distal aspect does lie below EG junction. Right IJ central venous line with tip in the SVC unchanged. Diffuse bilateral infiltrates and vascular congestive changes. There may also be small to medium size right-sided effusion. PLEURA: No apparent pneumothorax so far as can seen CARDIOVASCULAR: Cardiomegaly. OSSEOUS STRUCTURES: No significant abnormalities. VISUALIZED UPPER ABDOMEN: Normal. OTHER FINDINGS: None. IMPRESSION: Support lines and tubes as above. Diffuse bilateral infiltrates and vascular congestive changes. There may also be small to medium size right-sided effusion.
[2016-07-25] MEDS: Cefepime 1 GM in Sodium Chloride 0.9% 100 ML IVPB SCH (17:01)
--- NOTE | 2016-07-25 19:56 | CP.PCM.PN ---
Subjective - Date & Time of Evaluation Date of Evaluation: 07/25/16 Time of Evaluation: 15:00 - Subjective Subjective: SEEN ON RENALF/U HD IS STARTING NOW .. HD ORDERS GIVEN TO HD -RN AND D/W HIM ALL PREVIOUS EMR REVIEWED REMAINS INTUBATED IN ICU CONSIDERATIONS FOR TRACK AND PEG BEING THOUGHT OF Objective - Vital Signs/Intake and Output Vital Signs (last 24 hours): Temp Pulse Resp BP Pulse Ox 97.4 F L 85 23 102/56 L 100 07/25/16 18:00 07/25/16 18:00 07/25/16 18:00 07/25/16 18:00 07/25/16 18:00 Intake and Output: 07/25/16 07/26/16 18:59 06:59 Intake Total 976 Output Total 2000 Balance -1024 - Medications Medications: Current Medications Acetaminophen (Tylenol 325mg Tab) 650 mg PO Q6 PRN PRN Reason: Pain, moderate (4-7) Last Admin: 07/23/16 00:30 Dose: 650 mg Acetaminophen (Tylenol 325mg Tab) 650 mg PO Q6 PRN PRN Reason: Fever >100.4 F Last Admin: 07/25/16 00:10 Dose: 650 mg Albuterol/Ipratropium (Duoneb 3 Mg/0.5 Mg (3 Ml) Ud) 3 ml INH RQ4 PRN PRN Reason: Shortness of Breath Allopurinol (Zyloprim) 100 mg PO DAILY [facility] Last Admin: 07/25/16 10:32 Dose: 100 mg Ascorbic Acid (Vitamin C 500 Mg Tab) 1,000 mg PO DAILY [facility] Last Admin: 07/25/16 10:30 Dose: 1,000 mg Bismuth Subsalicylate (Pepto-Bismol) 524 mg PO Q6H PRN PRN Reason: Diarrhea Carvedilol (Coreg) 12.5 mg PO BID [facility] Last Admin: 07/25/16 16:58 Dose: Not Given Dextrose (Dextrose 50% Inj) 0 ml IVP STAT PRN; Protocol PRN Reason: Hypoglycemia Protocol Ezetimibe (Zetia) 10 mg PO HS [facility] Last Admin: 07/24/16 21:22 Dose: 10 mg Ergocalciferol (Drisdol 50,000 Intl Units Cap) 1 cap PO QWK [facility] Glucagon (Glucagen Diagnostic Kit) 0 mg IM STAT PRN; Protocol PRN Reason: Hypoglycemia Protocol Amiodarone HCl 900 mg/ (Dextrose) 518 mls @ 34.53 mls/hr IVPB .Q15H1M [facility]; 1 MG /MIN PRN Reason: Protocol Vancomycin HCl 1 gm/ Sodium (Chloride) 250 mls @ 166.667 mls/hr IVPB MWF [facility] Cefepime HCl 1 gm/ Sodium (Chloride) 100 mls @ 100 mls/hr IVPB DAILY [facility] Last Admin: 07/25/16 17:01 Dose: 100 mls/hr Insulin Detemir (Levemir) 25 units SC HS [facility] Last Admin: 07/24/16 21:22 Dose: 25 units Insulin Human Regular (Humulin R) 0 units SC ACHS [facility] PRN Reason: Protocol Last Admin: 07/25/16 16:59 Dose: 4 units Pantoprazole Sodium (Protonix Inj) 40 mg IVP DAILY [facility] Last Admin: 07/25/16 10:29 Dose: 40 mg Sevelamer Carbonate (Renvela) 0.8 gm PO TID [facility] Last Admin: 07/25/16 17:01 Dose: 0.8 gm Sitagliptin Phosphate (Januvia) 25 mg PO DAILY [facility] Last Admin: 07/25/16 10:28 Dose: 25 mg Tamsulosin HCl (Flomax) 0.4 mg PO DAILY [facility] Last Admin: 07/25/16 10:28 Dose: 0.4 mg Vitamin B Complex/Vit C/Folic Acid (Nephro-Carlitos) 1 tab PO DAILY [facility] Last Admin: 07/25/16 10:34 Dose: Not Given - Labs Labs: 07/25/16 04:20 07/25/16 04:20 PT 12.5 SECONDS (9.6-11.2) H 07/17/16 04:35 INR 1.20 (0.92-1.08) H 07/17/16 04:35 APTT 34.8 SECONDS (23.3-32.5) H 07/17/16 04:35 Assessment and Plan - Assessment and Plan (Free Text) Assessment: A ON CKD .. ON HD M W F AND SAT ANEMIA OF CKD .. ON EPO VDRS .. INTUBATED ORALLY SEPSIS ON IVAB P : C/O CURRENT CARE
[2016-07-25] MEDS: Insulin Detemir 100 Units/ml Inj SC SCH (22:00)
[2016-07-26] MEDS: Acetaminophen 650mg/20.3ml solution UD PO PRN (04:11)
[2016-07-26 04:43] LABS: ABG ALLEN TEST YES; ABG MECHANICAL RATE 10; ARTERIAL BLOOD GAS HCO3 28.2 mmol/L (21-28); ARTERIAL BLOOD GAS MODE A/C; ARTERIAL BLOOD GAS O2 CAPACITY 12.3 mL/dL (16-24); ARTERIAL BLOOD GAS O2 CONTENT 12.3 ML/dL (15-23); ARTERIAL BLOOD GAS PH 7.45 (7.35-7.45); ARTERIAL BLOOD GAS PO2 232 mm/Hg (80-100); ARTERIAL BLOOD HGB O2 SAT 97.6 % (95.0-98.0); ATERIAL BLOOD GAS PEEP 5; CARBOXYHEMOGLOBIN 1.1 % (0.5-1.5); HHB -0.3 % (0.0-5.0); METHEMOGLOBIN 1.6 % (0.0-3.0)
--- NOTE | 2016-07-26 07:18 | CP.PCM.PN ---
Subjective - Date & Time of Evaluation Date of Evaluation: 07/26/16 Time of Evaluation: 07:14 - Subjective Subjective: General Surgery Consult Note for Dr. Roa This 80M was seen and examined this AM at bedside.. Nurse reports not acute events overnight. Patient is intubated no clinical interval change. Objective - Vital Signs/Intake and Output Vital Signs (last 24 hours): Temp Pulse Resp BP Pulse Ox 99.6 F 97 H 25 H 116/72 100 07/26/16 06:00 07/26/16 06:00 07/26/16 06:00 07/26/16 06:00 07/26/16 06:00 Intake and Output: 07/26/16 07/26/16 06:59 18:59 Intake Total 595 Balance 595 - Medications Medications: Current Medications Acetaminophen (Tylenol 325mg Tab) 650 mg PO Q6 PRN PRN Reason: Pain, moderate (4-7) Last Admin: 07/23/16 00:30 Dose: 650 mg Acetaminophen (Tylenol 650mg/20.3ml Solution Ud) 650 mg PO Q6 PRN PRN Reason: fever Last Admin: 07/26/16 04:11 Dose: 650 mg Allopurinol (Zyloprim) 100 mg PO DAILY [facility] Last Admin: 07/25/16 10:32 Dose: 100 mg Ascorbic Acid (Vitamin C 500 Mg Tab) 1,000 mg PO DAILY [facility] Last Admin: 07/25/16 10:30 Dose: 1,000 mg Bismuth Subsalicylate (Pepto-Bismol) 524 mg PO Q6H PRN PRN Reason: Diarrhea Carvedilol (Coreg) 12.5 mg PO BID [facility] Last Admin: 07/25/16 16:58 Dose: Not Given Dextrose (Dextrose 50% Inj) 0 ml IVP STAT PRN; Protocol PRN Reason: Hypoglycemia Protocol Ezetimibe (Zetia) 10 mg PO HS [facility] Last Admin: 07/25/16 21:22 Dose: 10 mg Ergocalciferol (Drisdol 50,000 Intl Units Cap) 1 cap PO QWK [facility] Glucagon (Glucagen Diagnostic Kit) 0 mg IM STAT PRN; Protocol PRN Reason: Hypoglycemia Protocol Amiodarone HCl 900 mg/ (Dextrose) 518 mls @ 34.53 mls/hr IVPB .Q15H1M [facility]; 1 MG /MIN PRN Reason: Protocol Vancomycin HCl 1 gm/ Sodium (Chloride) 250 mls @ 166.667 mls/hr IVPB MWF [facility] Cefepime HCl 1 gm/ Sodium (Chloride) 100 mls @ 100 mls/hr IVPB DAILY [facility] Last Admin: 07/25/16 17:01 Dose: 100 mls/hr Piperacillin Sod/Tazobactam (Sod 2.25 gm/ Sodium Chloride) 100 mls @ 100 mls/ hr IVPB Q8H [facility] Last Admin: 07/26/16 02:04 Dose: 100 mls/hr Insulin Detemir (Levemir) 25 units SC HS [facility] Last Admin: 07/25/16 22:00 Dose: 25 units Insulin Human Regular (Humulin R) 0 units SC ACHS [facility] PRN Reason: Protocol Last Admin: 07/25/16 21:56 Dose: Not Given Pantoprazole Sodium (Protonix Inj) 40 mg IVP DAILY [facility] Last Admin: 07/25/16 10:29 Dose: 40 mg Sevelamer Carbonate (Renvela) 0.8 gm PO TID [facility] Last Admin: 07/25/16 17:01 Dose: 0.8 gm Sitagliptin Phosphate (Januvia) 25 mg PO DAILY [facility] Last Admin: 07/25/16 10:28 Dose: 25 mg Tamsulosin HCl (Flomax) 0.4 mg PO DAILY [facility] Last Admin: 07/25/16 10:28 Dose: 0.4 mg Vitamin B Complex/Vit C/Folic Acid (Nephro-Carlitos) 1 tab PO DAILY [facility] Last Admin: 07/25/16 10:34 Dose: Not Given - Labs Labs: 07/25/16 04:20 07/25/16 04:20 PT 12.5 SECONDS (9.6-11.2) H 07/17/16 04:35 INR 1.20 (0.92-1.08) H 07/17/16 04:35 APTT 34.8 SECONDS (23.3-32.5) H 07/17/16 04:35 - Eye Exam Additional comments: Pupils non equal and non reactive to light - Respiratory Exam Additional comments: intubated Assessment and Plan - Assessment and Plan (Free Text) Assessment: 80M w/ acute on chronic CKD, s/p code blue w/ acute resp failure and anoxic brain injury, intubated since 07/14 -Family to be in later today to discuss care -Continue to wean down Fio2, goal of 40% -If family wishes to pursue will plan for Tracheostomy next week -PEG to be done by GI unless they are unable to do so DW Dr. Crispin Caldera PGY-1
[2016-07-26] MEDS: Insulin Regular 100 units/ml SC SCH ×4 (07:31→21:53)
[2016-07-26 07:45] LABS: HEMATOCRIT 23.4 % (35.0-51.0); MEAN CELL VOLUME 85.2 fl (80.0-94.0); MEAN CORPUSCULAR HEMOGLOBIN 26.9 pg (27.0-31.0); MEAN CORPUSCULAR HGB CONC 31.6 g/dL (33.0-37.0); RED CELL DISTRIBUTION WIDTH 18.7 % (11.5-14.5)
[2016-07-26 07:48] LABS: ALB/GLOB RATIO 0.6 (1.0-2.1); BILIRUBIN,TOTAL 0.6 mg/dl (0.2-1.3); CALCIUM 7.6 mg/dL (8.4-10.2); POTASSIUM 4.3 MMOL/L (3.6-5.0); TOTAL PROTEIN 6.7 G/DL (6.3-8.2)
[2016-07-26] MEDS: Multivitamin Vitamin B Complex (Nephro-Vite) Tab PO SCH (08:34)
[2016-07-26] MEDS: Cefepime 1 GM in Sodium Chloride 0.9% 100 ML IVPB SCH (08:34)
[2016-07-26] MEDS: Sevelamer Carb 0.8 gm/Packet PO SCH ×3 (08:35→18:14)
--- NOTE | 2016-07-26 10:55 | RAD ---
HISTORY: pt intubated COMPARISON: Chest x-ray performed 07/25/16 TECHNIQUE: Chest, one view. FINDINGS: Right-sided central venous catheter terminates at the cavoatrial junction. The endotracheal tube terminates approximately 3.2 cm above the chandrakant. Nasogastric tube extends expected location of the stomach. Examination limited by habitus. LUNGS: Pulmonary venous congestion. Decreasing bilateral infiltrates. Please note that chest x-ray has limited sensitivity for the detection of pulmonary masses. PLEURA: Small left pleural effusion. No definite pneumothorax . CARDIOVASCULAR: Borderline cardiomegaly. OSSEOUS STRUCTURES: Degenerative changes of the spine. VISUALIZED UPPER ABDOMEN: Unremarkable. OTHER FINDINGS: None. IMPRESSION: Support lines and tubes as above. Pulmonary venous congestion. Decreasing bilateral infiltrates. Small left pleural effusion.
--- NOTE | 2016-07-26 13:20 | PN ---
DATE: 07/26/2016 LOCATION: The patient in ICU, bed 430. TIME SPENT: 35 minutes. The patient is seen and evaluated at the bedside. Events since admission are reviewed. 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 No response to verbal or painful stimuli. Telemetry sinus rhythm. PHYSICAL EXAMINATION: VITAL SIGNS: T-max 100.7, heart rate 86 and regular, blood pressure 103/53, mean arterial pressure 69, oxygen saturation 100%. Intake 1681, output 2000, negative balance 319, status post hemodialysis yesterday. HEAD, EYES, EARS, NOSE AND THROAT: Pupils nonreactive, midpoint. Sclerae injected. CHEST: Bilateral breath sounds, scattered rhonchi. HEART: Rhythm regular. S1, S2 normal. No audible murmur. ABDOMEN: Pendulous, obese. No tenderness, soft. EXTREMITIES: Bilateral upper extremity edema, 3+ bilateral lower extremity edema. NEUROLOGIC: Remains unresponsive to verbal or painful stimuli. Pupils are midpoint and nonreactive. Corneal reflex present. Spontaneous blink occasionally. Mild gag reflex. LABORATORY DATA: WBC 13, hemoglobin 7.4, hematocrit 23.4, platelet count 253. ABG: pH 7.45, pCO2 of 41, pO2 232 on FiO2 80%, reduced to 60%. SMA-7: Sodium 141, potassium, 4.2, chloride 103, CO2 27, blood urea nitrogen 66, creatinine 5.1, glucose 315, calcium 7.6, total bilirubin 0.6, AST 51, ALT 32, alkaline phosphatase 283, total protein 6.7, albumin 2.5. Urinalysis, bacteria few, WBC 14, RBC 10. Microbiology: Sputum culture positive for yeast. Blood culture positive for Strep anginosus-constellatus. Chest x-ray: Endotracheal tube in place, pulmonary venous congestion, right-sided central venous catheter terminates at the cranio-atrial junction. Nasogastric tube extends to the stomach. Pulmonary venous congestion. IMPRESSION: 1. Remains anoxic encephalopathy, status post cardiorespiratory arrest. No significant clinical improvement. Seen by general surgery consult. Awaiting for family decision for tracheostomy and also for percutaneous endoscopic gastrostomy insertion. 2. End-stage renal disease, on hemodialysis. 3. Paroxysmal atrial fibrillation, rate l controlled. Pulmonary venous congestion with atelectasis secondary to fluid overload and morbid obesity. Bacteremia, currently on antibiotic.,Continue same as recommended by infectious disease consult. Prognosis remains guarded. Javid Jacobsen MD cc: [id number] TT: 07/26/2016 13:19:38 Confirmation # [id number] Dictation # [id number] MTDD
[2016-07-26] MEDS: Artificial Tears Opht Soln OU PRN (18:14)
[2016-07-26] MEDS: Insulin Detemir 100 Units/ml Inj SC SCH (21:52)
--- NOTE | 2016-07-26 22:41 | CP.PCM.PN ---
Subjective - Date & Time of Evaluation Date of Evaluation: 07/26/16 Time of Evaluation: 19:00 - Subjective Subjective: SEEN ON RENAL F/U IN ICU REMAINS INTUBATED .. IN NAD ALL PREVIOUS EMR REVIEWED PT IS GETTING HIS HD MOMENTARILY HD ORDERS GIVEN AND D/W HD - RN Objective - Vital Signs/Intake and Output Vital Signs (last 24 hours): Temp Pulse Resp BP Pulse Ox 99.3 F 99 H 26 H 101/65 98 07/26/16 20:00 07/26/16 20:00 07/26/16 20:00 07/26/16 20:00 07/26/16 20:00 Intake and Output: 07/26/16 07/27/16 18:59 06:59 Intake Total 964 55 Balance 964 55 - Medications Medications: Current Medications Acetaminophen (Tylenol 325mg Tab) 650 mg PO Q6 PRN PRN Reason: Pain, moderate (4-7) Last Admin: 07/23/16 00:30 Dose: 650 mg Acetaminophen (Tylenol 650mg/20.3ml Solution Ud) 650 mg PO Q6 PRN PRN Reason: fever Last Admin: 07/26/16 04:11 Dose: 650 mg Allopurinol (Zyloprim) 100 mg PO DAILY [facility] Last Admin: 07/26/16 08:36 Dose: 100 mg Artificial Tears (Artificial Tears) 2 drop OU Q6 PRN PRN Reason: Dry eyes Last Admin: 07/26/16 18:14 Dose: 2 drop Ascorbic Acid (Vitamin C 500 Mg Tab) 1,000 mg PO DAILY [facility] Last Admin: 07/26/16 08:35 Dose: 1,000 mg Bismuth Subsalicylate (Pepto-Bismol) 524 mg PO Q6H PRN PRN Reason: Diarrhea Carvedilol (Coreg) 12.5 mg PO BID [facility] Last Admin: 07/26/16 18:55 Dose: Not Given Dextrose (Dextrose 50% Inj) 0 ml IVP STAT PRN; Protocol PRN Reason: Hypoglycemia Protocol Ezetimibe (Zetia) 10 mg PO HS [facility] Last Admin: 07/26/16 21:53 Dose: 10 mg Ergocalciferol (Drisdol 50,000 Intl Units Cap) 1 cap PO QWK [facility] Glucagon (Glucagen Diagnostic Kit) 0 mg IM STAT PRN; Protocol PRN Reason: Hypoglycemia Protocol Amiodarone HCl 900 mg/ (Dextrose) 518 mls @ 34.53 mls/hr IVPB .Q15H1M [facility]; 1 MG /MIN PRN Reason: Protocol Vancomycin HCl 1 gm/ Sodium (Chloride) 250 mls @ 166.667 mls/hr IVPB MWF [facility] Cefepime HCl 1 gm/ Sodium (Chloride) 100 mls @ 100 mls/hr IVPB DAILY [facility] Last Admin: 07/26/16 08:34 Dose: 100 mls/hr Piperacillin Sod/Tazobactam (Sod 2.25 gm/ Sodium Chloride) 100 mls @ 100 mls/ hr IVPB Q8H [facility] Last Admin: 07/26/16 18:15 Dose: 100 mls/hr Insulin Detemir (Levemir) 25 units SC HS [facility] Last Admin: 07/26/16 21:52 Dose: 25 units Insulin Human Regular (Humulin R) 0 units SC ACHS [facility] PRN Reason: Protocol Last Admin: 07/26/16 21:53 Dose: Not Given Midodrine (Proamatine) 10 mg PO TID PRN PRN Reason: hypotension Pantoprazole Sodium (Protonix Inj) 40 mg IVP DAILY [facility] Last Admin: 07/26/16 08:34 Dose: 40 mg Sevelamer Carbonate (Renvela) 0.8 gm PO TID [facility] Last Admin: 07/26/16 18:14 Dose: 0.8 gm Sitagliptin Phosphate (Januvia) 25 mg PO DAILY [facility] Last Admin: 07/26/16 08:33 Dose: 25 mg Tamsulosin HCl (Flomax) 0.4 mg PO DAILY [facility] Last Admin: 07/26/16 08:33 Dose: 0.4 mg Vitamin B Complex/Vit C/Folic Acid (Nephro-Carlitos) 1 tab PO DAILY [facility] Last Admin: 07/26/16 08:34 Dose: 1 tab - Labs Labs: 07/26/16 06:20 07/26/16 06:20 PT 12.5 SECONDS (9.6-11.2) H 07/17/16 04:35 INR 1.20 (0.92-1.08) H 07/17/16 04:35 APTT 34.8 SECONDS (23.3-32.5) H 07/17/16 04:35 Assessment and Plan - Assessment and Plan (Free Text) Assessment: A ON CKD .. ON HD M W F AND SAT ANEMIA OF CKD .. ON EPO VDRF ON VENT MULTIPLE CO MORBIDITIES P : C/O CURRENT CARE ADD EPO ALL MEDS REVIEWED
--- NOTE | 2016-07-27 02:10 | CP.PCM.PN ---
Subjective - Date & Time of Evaluation Date of Evaluation: 07/27/16 Time of Evaluation: 02:07 - Subjective Subjective: SURGERY NOTE FOR DR. COBURN 80M seen and examined at bedside. Patient clinically same. Intubated, difficult to arouse with painful stimuli. Objective - Vital Signs/Intake and Output Vital Signs (last 24 hours): Temp Pulse Resp BP Pulse Ox 99.3 F 99 H 26 H 101/65 98 07/26/16 20:00 07/26/16 20:00 07/26/16 20:00 07/26/16 20:00 07/26/16 20:00 Intake and Output: 07/26/16 07/27/16 18:59 06:59 Intake Total 964 55 Balance 964 55 - Medications Medications: Current Medications Acetaminophen (Tylenol 325mg Tab) 650 mg PO Q6 PRN PRN Reason: Pain, moderate (4-7) Last Admin: 07/23/16 00:30 Dose: 650 mg Acetaminophen (Tylenol 650mg/20.3ml Solution Ud) 650 mg PO Q6 PRN PRN Reason: fever Last Admin: 07/26/16 04:11 Dose: 650 mg Allopurinol (Zyloprim) 100 mg PO DAILY [facility] Last Admin: 07/26/16 08:36 Dose: 100 mg Artificial Tears (Artificial Tears) 2 drop OU Q6 PRN PRN Reason: Dry eyes Last Admin: 07/26/16 18:14 Dose: 2 drop Ascorbic Acid (Vitamin C 500 Mg Tab) 1,000 mg PO DAILY [facility] Last Admin: 07/26/16 08:35 Dose: 1,000 mg Bismuth Subsalicylate (Pepto-Bismol) 524 mg PO Q6H PRN PRN Reason: Diarrhea Carvedilol (Coreg) 12.5 mg PO BID [facility] Last Admin: 07/26/16 18:55 Dose: Not Given Dextrose (Dextrose 50% Inj) 0 ml IVP STAT PRN; Protocol PRN Reason: Hypoglycemia Protocol Ezetimibe (Zetia) 10 mg PO HS [facility] Last Admin: 07/26/16 21:53 Dose: 10 mg Epoetin Jameel (Procrit) 4,000 unit SC MWF [facility] Ergocalciferol (Drisdol 50,000 Intl Units Cap) 1 cap PO QWK [facility] Glucagon (Glucagen Diagnostic Kit) 0 mg IM STAT PRN; Protocol PRN Reason: Hypoglycemia Protocol Amiodarone HCl 900 mg/ (Dextrose) 518 mls @ 34.53 mls/hr IVPB .Q15H1M [facility]; 1 MG /MIN PRN Reason: Protocol Vancomycin HCl 1 gm/ Sodium (Chloride) 250 mls @ 166.667 mls/hr IVPB MWF [facility] Cefepime HCl 1 gm/ Sodium (Chloride) 100 mls @ 100 mls/hr IVPB DAILY [facility] Last Admin: 07/26/16 08:34 Dose: 100 mls/hr Piperacillin Sod/Tazobactam (Sod 2.25 gm/ Sodium Chloride) 100 mls @ 100 mls/ hr IVPB Q8H [facility] Last Admin: 07/26/16 18:15 Dose: 100 mls/hr Insulin Detemir (Levemir) 25 units SC HS [facility] Last Admin: 07/26/16 21:52 Dose: 25 units Insulin Human Regular (Humulin R) 0 units SC ACHS [facility] PRN Reason: Protocol Last Admin: 07/26/16 21:53 Dose: Not Given Midodrine (Proamatine) 10 mg PO TID PRN PRN Reason: hypotension Last Admin: 07/26/16 23:19 Dose: 10 mg Pantoprazole Sodium (Protonix Inj) 40 mg IVP DAILY [facility] Last Admin: 07/26/16 08:34 Dose: 40 mg Sevelamer Carbonate (Renvela) 0.8 gm PO TID [facility] Last Admin: 07/26/16 18:14 Dose: 0.8 gm Sitagliptin Phosphate (Januvia) 25 mg PO DAILY [facility] Last Admin: 07/26/16 08:33 Dose: 25 mg Tamsulosin HCl (Flomax) 0.4 mg PO DAILY [facility] Last Admin: 07/26/16 08:33 Dose: 0.4 mg Vitamin B Complex/Vit C/Folic Acid (Nephro-Carlitos) 1 tab PO DAILY [facility] Last Admin: 07/26/16 08:34 Dose: 1 tab - Labs Labs: 07/26/16 06:20 07/26/16 06:20 PT 12.5 SECONDS (9.6-11.2) H 07/17/16 04:35 INR 1.20 (0.92-1.08) H 07/17/16 04:35 APTT 34.8 SECONDS (23.3-32.5) H 07/17/16 04:35 - Constitutional Appears: Non-toxic, No Acute Distress - Eye Exam Additional comments: nonreactive pupils - Respiratory Exam Additional comments: intubated, difficult to arouse with painful stimuli Assessment and Plan - Assessment and Plan (Free Text) Assessment: 80M w/ acute on chronic CKD, s/p code blue w/ acute resp failure and anoxic brain injury, intubated since 07/14 -Await family decision on path of care -If family wishes to pursue will plan for Tracheostomy next week -PEG to be done by GI unless they are unable to do so Further recs discuss with Dr. Crispin Torres, PGY1
[2016-07-27 05:05] LABS: ABG ALLEN TEST YES; ABG MECHANICAL RATE 10; ARTERIAL BLOOD GAS HCO3 29.5 mmol/L (21-28); ARTERIAL BLOOD GAS MODE A/C; ARTERIAL BLOOD GAS O2 CAPACITY 10.9 mL/dL (16-24); ARTERIAL BLOOD GAS O2 CONTENT 10.9 ML/dL (15-23); ARTERIAL BLOOD GAS PH 7.41 (7.35-7.45); ARTERIAL BLOOD GAS PO2 87 mm/Hg (80-100); ARTERIAL BLOOD HGB O2 SAT 96.7 % (95.0-98.0); ATERIAL BLOOD GAS PEEP 5; CARBOXYHEMOGLOBIN 2.1 % (0.5-1.5); HHB -0.3 % (0.0-5.0); METHEMOGLOBIN 1.6 % (0.0-3.0)
[2016-07-27 06:44] LABS: HEMATOCRIT 23.3 % (35.0-51.0); MEAN CELL VOLUME 84.2 fl (80.0-94.0); MEAN CORPUSCULAR HEMOGLOBIN 26.6 pg (27.0-31.0); MEAN CORPUSCULAR HGB CONC 31.6 g/dL (33.0-37.0); RED CELL DISTRIBUTION WIDTH 18.2 % (11.5-14.5); WHITE BLOOD COUNT 13.5 K/uL (4.8-10.8)
[2016-07-27 06:55] LABS: ALB/GLOB RATIO 0.6 (1.0-2.1); BILIRUBIN,TOTAL 0.7 mg/dl (0.2-1.3); CALCIUM 7.9 mg/dL (8.4-10.2); POTASSIUM 4.2 MMOL/L (3.6-5.0); TOTAL PROTEIN 7.2 G/DL (6.3-8.2)
[2016-07-27] MEDS: Insulin Regular 100 units/ml SC SCH ×4 (07:37→22:04)
[2016-07-27] MEDS: Artificial Tears Opht Soln OU PRN ×2 (08:44→18:21)
[2016-07-27] MEDS: Cefepime 1 GM in Sodium Chloride 0.9% 100 ML IVPB SCH (08:48)
[2016-07-27] MEDS: Multivitamin Vitamin B Complex (Nephro-Vite) Tab PO SCH (08:49)
[2016-07-27] MEDS: Sevelamer Carb 0.8 gm/Packet PO SCH ×3 (08:50→18:23)
--- NOTE | 2016-07-27 09:54 | PN ---
DATE: 07/27/2016 The patient is seen and examined. Interim events noted. Consults noted and appreciated. The patien t remains in intensive care unit on ventilator, also remains noncommunicating, not able to provide an y informative history or review of systems. No specific issue reported by nursing staff. PHYSICAL EXAMINATION: GENERAL: The patient is orally intubated on mechanical ventilation via endotracheal tube in the inte nsive care unit, remains essentially unresponsive. VITAL SIGNS: Stable. HEART: S1, S2 normal, regular. LUNGS: Good bilateral air exchange. ABDOMEN: Soft, nontender. EXTREMITIES: The patient has chronic venous stasis. No calf swelling, no tenderness, no acute ische vashti. CENTRAL NERVOUS SYSTEM: Essentially unchanged. DIAGNOSTIC DATA: Available diagnostic data reviewed. Telemetry monitoring does not show significant arrhythmias. Overall, the patient's general medical condition is essentially the same. Long-term functional progn osis remains poor. PLAN: As ordered. Tang Solorio MD cc: [id number] TT: 07/27/2016 09:53:43 Confirmation # [id number] Dictation # [id number] mary
--- NOTE | 2016-07-27 10:11 | RAD ---
HISTORY: pt intubated COMPARISON: Chest x-ray performed 07/26/16 TECHNIQUE: Chest, one view. FINDINGS: Examination limited by habitus. Nasogastric tube terminates approximately 1.8 cm above the chandrakant. Nasogastric tube is not visualized the on the distal esophagus, likely obscured by soft tissue attenuation. Right-sided central venous catheter terminates at the cavoatrial junction. LUNGS: Increasing pulmonary venous congestion and bilateral infiltrates. Biapical pleural thickening. The lung bases are excluded from view. Please note that chest x-ray has limited sensitivity for the detection of pulmonary masses. PLEURA: Probable bilateral pleural effusions. No definite pneumothorax . CARDIOVASCULAR: Cardiomegaly. Atherosclerotic calcifications. OSSEOUS STRUCTURES: Degenerative changes. VISUALIZED UPPER ABDOMEN: Unremarkable. OTHER FINDINGS: None. IMPRESSION: Nasogastric tube terminates approximately 1.8 cm above the chandrakant. Nasogastric tube is not visualized the on the distal esophagus, likely obscured by soft tissue attenuation. Right-sided central venous catheter terminates at the cavoatrial junction. Increasing pulmonary venous congestion and bilateral infiltrates. Biapical pleural thickening. Probable bilateral pleural effusions. The lung bases are excluded from view.
--- NOTE | 2016-07-27 13:31 | CP.PCM.PN ---
Subjective - Date & Time of Evaluation Date of Evaluation: 07/27/16 Time of Evaluation: 08:00 - Subjective Subjective: afebrile intubated unresponsive no new positive cultures Objective - Vital Signs/Intake and Output Vital Signs (last 24 hours): Temp Pulse Resp BP Pulse Ox 99.3 F 98 H 21 112/61 100 07/27/16 06:00 07/27/16 08:45 07/27/16 06:00 07/27/16 08:45 07/27/16 06:00 Intake and Output: 07/27/16 07/27/16 06:59 18:59 Intake Total 705 Output Total 1999 Balance -1295 - Medications Medications: Current Medications Acetaminophen (Tylenol 325mg Tab) 650 mg PO Q6 PRN PRN Reason: Pain, moderate (4-7) Last Admin: 07/23/16 00:30 Dose: 650 mg Acetaminophen (Tylenol 650mg/20.3ml Solution Ud) 650 mg PO Q6 PRN PRN Reason: fever Last Admin: 07/26/16 04:11 Dose: 650 mg Allopurinol (Zyloprim) 100 mg PO DAILY [facility] Last Admin: 07/27/16 08:52 Dose: 100 mg Artificial Tears (Artificial Tears) 2 drop OU Q6 PRN PRN Reason: Dry eyes Last Admin: 07/27/16 08:44 Dose: 2 drop Ascorbic Acid (Vitamin C 500 Mg Tab) 1,000 mg PO DAILY [facility] Last Admin: 07/27/16 08:50 Dose: 1,000 mg Bismuth Subsalicylate (Pepto-Bismol) 524 mg PO Q6H PRN PRN Reason: Diarrhea Carvedilol (Coreg) 12.5 mg PO BID [facility] Last Admin: 07/27/16 08:45 Dose: 12.5 mg Dextrose (Dextrose 50% Inj) 0 ml IVP STAT PRN; Protocol PRN Reason: Hypoglycemia Protocol Ezetimibe (Zetia) 10 mg PO HS [facility] Last Admin: 07/26/16 21:53 Dose: 10 mg Epoetin Jameel (Procrit) 4,000 unit SC MWF [facility] Ergocalciferol (Drisdol 50,000 Intl Units Cap) 1 cap PO QWK [facility] Glucagon (Glucagen Diagnostic Kit) 0 mg IM STAT PRN; Protocol PRN Reason: Hypoglycemia Protocol Amiodarone HCl 900 mg/ (Dextrose) 518 mls @ 34.53 mls/hr IVPB .Q15H1M [facility]; 1 MG /MIN PRN Reason: Protocol Vancomycin HCl 1 gm/ Sodium (Chloride) 250 mls @ 166.667 mls/hr IVPB MWF [facility] Cefepime HCl 1 gm/ Sodium (Chloride) 100 mls @ 100 mls/hr IVPB DAILY [facility] Last Admin: 07/27/16 08:48 Dose: 100 mls/hr Piperacillin Sod/Tazobactam (Sod 2.25 gm/ Sodium Chloride) 100 mls @ 100 mls/ hr IVPB Q8H [facility] Last Admin: 07/27/16 08:51 Dose: 100 mls/hr Insulin Detemir (Levemir) 25 units SC HS [facility] Last Admin: 07/26/16 21:52 Dose: 25 units Insulin Human Regular (Humulin R) 0 units SC ACHS [facility] PRN Reason: Protocol Last Admin: 07/27/16 13:10 Dose: 2 units Midodrine (Proamatine) 10 mg PO TID PRN PRN Reason: hypotension Last Admin: 07/26/16 23:19 Dose: 10 mg Sevelamer Carbonate (Renvela) 0.8 gm PO TID [facility] Last Admin: 07/27/16 13:11 Dose: 0.8 gm Sitagliptin Phosphate (Januvia) 25 mg PO DAILY [facility] Last Admin: 07/27/16 08:47 Dose: 25 mg Tamsulosin HCl (Flomax) 0.4 mg PO DAILY [facility] Last Admin: 07/27/16 08:46 Dose: 0.4 mg Vitamin B Complex/Vit C/Folic Acid (Nephro-Carlitos) 1 tab PO DAILY [facility] Last Admin: 07/27/16 08:49 Dose: 1 tab - Labs Labs: 07/27/16 05:45 07/27/16 05:45 PT 12.5 SECONDS (9.6-11.2) H 07/17/16 04:35 INR 1.20 (0.92-1.08) H 07/17/16 04:35 APTT 34.8 SECONDS (23.3-32.5) H 07/17/16 04:35 - Constitutional Appears: Confused, Chronically Ill - Head Exam Head Exam: NORMOCEPHALIC - Eye Exam Eye Exam: absent: Scleral icterus - ENT Exam ENT Exam: Mucous Membranes Dry - Neck Exam Neck Exam: absent: Lymphadenopathy - Respiratory Exam Respiratory Exam: Decreased Breath Sounds, Clear to Ausculation Bilateral - Cardiovascular Exam Cardiovascular Exam: REGULAR RHYTHM, +S1, +S2 - GI/Abdominal Exam GI & Abdominal Exam: Distended, Soft. absent: Tenderness - Rectal Exam Rectal Exam: Deferred - Exam Exam: NORMAL INSPECTION - Extremities Exam Extremities Exam: absent: Calf Tenderness, Pedal Edema - Back Exam Back Exam: absent: CVA tenderness (L), CVA tenderness (R) - Neurological Exam Neurological Exam: Altered - Skin Skin Exam: Dry Assessment and Plan (1) Acute kidney failure Status: Acute (2) Cellulitis of right lower extremity Status: Acute (3) Bacteremia Status: Acute (4) Bacteremia Status: Acute - Assessment and Plan (Free Text) Assessment: admitted with cellulitis/ bacteremia and sepsis developed resp failure and coded likely anoxic encephalopathy now onn HD as per dr bianchi cont supportive rx
--- NOTE | 2016-07-27 14:15 | PN ---
DATE: 07/27/2016 The patient in ICU, bed 430. TIME SPENT: 35 minutes. Seen and evaluated at the bedside. Events since admission reviewed. Overnight, remains in a vegetat elda state, on mechanical ventilation, AC/PRVC rate 10, FiO2 60%, set at tidal volume 500, saturating 100%, observed respiratory rate 20, observed tidal volume 480, peak airway pressure 30, end tidal CO2 28. No sedation. No response to verbal or painful stimuli. Telemetry sinus rhythm. PHYSICAL EXAMINATION: VITAL SIGNS: T-max 98.7, heart rate 96, regular, blood pressure 100/73, mean arterial pressure 82, o xygen saturation 99%. Status post hemodialysis last night. Intake 1681, output 2000, negative 319. HEENT: Pupils midpoint, nonreactive. Sclerae injected. Ocular vestibular test negative. CHEST: Bilateral breath sounds, scattered rhonchi. HEART: Rhythm regular. S1, S2 normal. No audible murmur. ABDOMEN: Pendulous, obese, no tenderness, soft. EXTREMITIES: Bilateral upper extremity edema, 3+ bilateral lower extremity edema. NEUROLOGIC: Remains unresponsive to verbal or painful stimuli. Pupils midpoint, nonreactive. Corne al reflex present. Spontaneous blink occasionally. Mild gag reflex. LABORATORY DATA: WBC 13.5, hemoglobin 7.4, hematocrit 23.3, platelet count 238. ABG: pH 7.41, pCO2 49, pO2 87, saturation 100.3 on AC 10/500, 60%, PEEP 5. SMA-7: Sodium 142, potassium 4.2, chloride 104, CO2 28, blood urea nitrogen 54, creatinine 4.1, calcium 7.9, total bilirubin 0.7, AST 66, ALT 3 1, alkaline phosphatase 273, albumin 2.7. CURRENT MEDICATIONS: Tylenol 650 q. 6 p.r.n., Zyloprim 100 mg p.o. daily, amiodarone 900 mg at 34.53 mL per hour, artificial tears 2 drops both eyes q. 6 p.r.n., vitamin C 1000 mg p.o. daily, Pepto-Bis mol 524 mg p.o. q. 6 p.r.n. for diarrhea, Coreg 12.5 mg twice daily, Cefepime 1 gram IV daily, Procri t 4000 units subQ 3 times a week, Zetia 10 mg at bedtime daily, Levemir 25 units subQ at bedtime, Acc u-Chek with regular insulin coverage, micafungin 100 mg IV daily, midodrine 10 mg p.o. 3 times daily p.r.n., Zosyn 2.25 grams IV q. 8 hours, sitagliptin 25 mg p.o. daily, Flomax 0.4 mg daily, vitamin B complex 1 tablet daily. IMPRESSION: Remains anoxic encephalopathic, status post cardiorespiratory arrest, no significant imp rovement noted since the event, seen by general surgery consult, awaiting for family decision for tra cheostomy and also for percutaneous endoscopic gastrostomy insertion. End-stage renal disease, on he modialysis as per renal consult. Anemia of chronic disease, hemoglobin remains stable, hold transfus ion now. Paroxysmal atrial fibrillation, rate controlled. Pulmonary venous congestion with atelecta sis, secondary to fluid overload and morbid obesity. Gram-positive bacteremia, on antibiotic, contin ue antibiotic as per ID consult. Prognosis remains guarded. Javid Jacobsen MD cc: [id number] TT: 07/27/2016 14:14:35 Confirmation # [id number] Dictation # [id number]
[2016-07-27] MEDS: Micafungin 100 MG in Sodium Chloride 0.9% 100 ML IVPB SCH (15:00)
[2016-07-27] MEDS: Insulin Detemir 100 Units/ml Inj SC SCH (21:52)
[2016-07-28] MEDS ORDERED: Norepinephrine 8 MG in Dextrose 5% In Water 500 ML IV ONE (03:26)
[2016-07-28] MEDS ORDERED: DOPamine 400mg/250ml D5W IV ONE (05:02)
--- NOTE | 2016-07-28 05:25 | CP.PCM.PN ---
Subjective - Date & Time of Evaluation Date of Evaluation: 07/28/16 Time of Evaluation: 05:25 - Subjective Subjective: CODE NOTE Code called after patient went into cardiac arrest on the Mechanical Ventilator. Chest compression was immediately started and Code Blue protocol was implemented. The heart rate was in agonal rhythm. One ampule of Epinephtine was given and heart beat was restored. The patient was replaced on the mechanical ventilator. Endotracheal tub suctioning f On the second code where the patient again went into an agonal rhythm, Heart beat was restored after the second gram of Epinephrine and chest compressions were done.. An eternal pacemaker was attached to the chest wall. There was a third episode of cardiac arrest where one ampule of epinephrine was given.Dopamine was strarted to maintain Heart rate. The Heart rate and Pulse were stabilized. But the patient remained hypoxic. The ET tube was noted to be obstructed with difficulty to bag and ventilate the patient and with falling Oxygen saturation. Because of this , decision was made to remove the ET tube and reintubate the patient. Intubation Note. The old ET Tube was removed and found to have clotted blood A new ET tube 8mm in diameter with stylet in in Place was used to re intubate the patient using a Mackentosh #3 blade. No sedation was used, The ET tube Placement was assessed by visualization of the vocal cord, auscultating bilateral breath sounds and using an CO2 detector. The ET tube secured at the 23CM elvis and patient returned to the Mechanical ventilator. No complication and the procedure was non traumatic. Post Intubation CXR and ABG were Ordered. I explained the situation to the patient's family, and they offered to come in immediately to the hospital to see the said patient. Objective - Vital Signs/Intake and Output Vital Signs (last 24 hours): Temp Pulse Resp BP Pulse Ox 98.3 F 86 19 98/55 L 100 07/28/16 00:00 07/28/16 00:00 07/28/16 00:00 07/28/16 00:00 07/28/16 00:00 Intake and Output: 07/27/16 07/28/16 18:59 06:59 Intake Total 1360 470 Balance 1360 470 - Medications Medications: Current Medications Acetaminophen (Tylenol 325mg Tab) 650 mg PO Q6 PRN PRN Reason: Pain, moderate (4-7) Last Admin: 07/23/16 00:30 Dose: 650 mg Acetaminophen (Tylenol 650mg/20.3ml Solution Ud) 650 mg PO Q6 PRN PRN Reason: fever Last Admin: 07/26/16 04:11 Dose: 650 mg Allopurinol (Zyloprim) 100 mg PO DAILY [facility] Last Admin: 07/27/16 08:52 Dose: 100 mg Artificial Tears (Artificial Tears) 2 drop OU Q6 PRN PRN Reason: Dry eyes Last Admin: 07/27/16 18:21 Dose: 2 drop Ascorbic Acid (Vitamin C 500 Mg Tab) 1,000 mg PO DAILY [facility] Last Admin: 07/27/16 08:50 Dose: 1,000 mg Bismuth Subsalicylate (Pepto-Bismol) 524 mg PO Q6H PRN PRN Reason: Diarrhea Carvedilol (Coreg) 12.5 mg PO BID [facility] Last Admin: 07/27/16 18:28 Dose: 12.5 mg Dextrose (Dextrose 50% Inj) 0 ml IVP STAT PRN; Protocol PRN Reason: Hypoglycemia Protocol Ezetimibe (Zetia) 10 mg PO HS [facility] Last Admin: 07/27/16 21:53 Dose: 10 mg Epoetin Jameel (Procrit) 4,000 unit SC MWF [facility] Ergocalciferol (Drisdol 50,000 Intl Units Cap) 1 cap PO QWK [facility] Glucagon (Glucagen Diagnostic Kit) 0 mg IM STAT PRN; Protocol PRN Reason: Hypoglycemia Protocol Amiodarone HCl 900 mg/ (Dextrose) 518 mls @ 34.53 mls/hr IVPB .Q15H1M [facility]; 1 MG /MIN PRN Reason: Protocol Vancomycin HCl 1 gm/ Sodium (Chloride) 250 mls @ 166.667 mls/hr IVPB MWF [facility] Cefepime HCl 1 gm/ Sodium (Chloride) 100 mls @ 100 mls/hr IVPB DAILY [facility] Last Admin: 07/27/16 08:48 Dose: 100 mls/hr Piperacillin Sod/Tazobactam (Sod 2.25 gm/ Sodium Chloride) 100 mls @ 100 mls/ hr IVPB Q8H [facility] Last Admin: 07/28/16 00:40 Dose: 100 mls/hr Micafungin Sodium 100 mg/ (Sodium Chloride) 100 mls @ 100 mls/hr IVPB DAILY [facility] Last Admin: 07/27/16 15:00 Dose: 100 mls/hr Norepinephrine Bitartrate 8 mg (/ Dextrose) 508 mls @ 19.05 mls/hr IV .Q24H ONE ; 5 MCG/MIN PRN Reason: Protocol Stop: 07/29/16 03:25 Last Admin: 07/28/16 04:22 Dose: 5 mcg/min, 19.05 mls/hr Insulin Detemir (Levemir) 25 units SC HS [facility] Last Admin: 07/27/16 21:52 Dose: 25 units Insulin Human Regular (Humulin R) 0 units SC ACHS [facility] PRN Reason: Protocol Last Admin: 07/27/16 22:04 Dose: Not Given Midodrine (Proamatine) 10 mg PO TID PRN PRN Reason: hypotension Last Admin: 07/26/16 23:19 Dose: 10 mg Sevelamer Carbonate (Renvela) 0.8 gm PO TID [facility] Last Admin: 07/27/16 18:23 Dose: 0.8 gm Sitagliptin Phosphate (Januvia) 25 mg PO DAILY [facility] Last Admin: 07/27/16 08:47 Dose: 25 mg Tamsulosin HCl (Flomax) 0.4 mg PO DAILY [facility] Last Admin: 07/27/16 08:46 Dose: 0.4 mg Vitamin B Complex/Vit C/Folic Acid (Nephro-Carlitos) 1 tab PO DAILY [facility] Last Admin: 07/27/16 08:49 Dose: 1 tab - Labs Labs: 07/27/16 05:45 07/27/16 05:45 PT 12.5 SECONDS (9.6-11.2) H 07/17/16 04:35 INR 1.20 (0.92-1.08) H 07/17/16 04:35 APTT 34.8 SECONDS (23.3-32.5) H 07/17/16 04:35
[2016-07-28] MEDS: DOPamine 400mg/250ml D5W 400 MG/250 ML BAG IV ONE ×4 (05:50→14:30)
[2016-07-28 07:03] LABS: HEMATOCRIT 24.1 % (35.0-51.0); MEAN CELL VOLUME 88.5 fl (80.0-94.0); MEAN CORPUSCULAR HEMOGLOBIN 26.1 pg (27.0-31.0); MEAN CORPUSCULAR HGB CONC 29.5 g/dL (33.0-37.0); RED CELL DISTRIBUTION WIDTH 19.7 % (11.5-14.5); WHITE BLOOD COUNT 13.6 K/uL (4.8-10.8)
[2016-07-28 07:36] LABS: ALB/GLOB RATIO 0.6 (1.0-2.1); BILIRUBIN,TOTAL 1.5 mg/dl (0.2-1.3); CALCIUM 7.7 mg/dL (8.4-10.2); POTASSIUM 5.4 MMOL/L (3.6-5.0); TOTAL PROTEIN 7.3 G/DL (6.3-8.2)
[2016-07-28] MEDS: Insulin Regular 100 units/ml SC SCH ×4 (07:48→23:05)
--- NOTE | 2016-07-28 07:51 | PN ---
DATE: 07/28/2016 The patient seen and examined. Interim events noted. Spindle Sander, nephrology and hospitalist sherry zapien noted and appreciated. The patient remains in intensive care unit, on ventilator, not able to provide informative history or review of systems. The patient had episodes of cardiac arrest. PHYSICAL EXAMINATION: GENERAL: The patient is orally intubated on mechanical ventilation via endotracheal tube, tolerating current vent setting without any acute respiratory distress. VITAL SIGNS: Temperature afebrile, pulse 93, respiration 18, blood pressure 90/60. HEENT: . HEART: S1, S2 normal, regular. LUNGS: Good bilateral air exchange. ABDOMEN: Soft, nontender. EXTREMITIES: No calf swelling, no tenderness, no acute ischemia. CENTRAL NERVOUS SYSTEM: The patient is essentially comatose. DIAGNOSTIC DATA: Available reviewed. Telemetry monitoring at this time does not reveal signif icant arrhythmias. The patient had episodes of cardiac arrest. Overall, patient's general prognosis is very poor. Case and plan discussed with multiple family memb ers at bedside at length. Prognosis explained, which they understand. PLAN: As ordered. Tang Solorio MD cc: [id number] TT: 07/28/2016 07:50:44 Confirmation # [id number] Dictation # [id number] en
--- NOTE | 2016-07-28 08:53 | CP.PCM.PN ---
Subjective - Date & Time of Evaluation Date of Evaluation: 07/28/16 Time of Evaluation: 08:51 - Subjective Subjective: General Surgery - Dr. Roa Pt S&E. NAEO. Pt remains intubated, currently on 10Peep, 100% FiO2. Unresponsive. Objective - Vital Signs/Intake and Output Vital Signs (last 24 hours): Temp Pulse Resp BP Pulse Ox 98.8 F 109 H 18 80/41 L 88 L 07/28/16 08:00 07/28/16 08:00 07/28/16 08:00 07/28/16 08:00 07/28/16 08:00 Intake and Output: 07/28/16 07/28/16 06:59 18:59 Intake Total 470 Balance 470 - Medications Medications: Current Medications Acetaminophen (Tylenol 325mg Tab) 650 mg PO Q6 PRN PRN Reason: Pain, moderate (4-7) Last Admin: 07/23/16 00:30 Dose: 650 mg Acetaminophen (Tylenol 650mg/20.3ml Solution Ud) 650 mg PO Q6 PRN PRN Reason: fever Last Admin: 07/26/16 04:11 Dose: 650 mg Allopurinol (Zyloprim) 100 mg PO DAILY [facility] Last Admin: 07/27/16 08:52 Dose: 100 mg Artificial Tears (Artificial Tears) 2 drop OU Q6 PRN PRN Reason: Dry eyes Last Admin: 07/27/16 18:21 Dose: 2 drop Ascorbic Acid (Vitamin C 500 Mg Tab) 1,000 mg PO DAILY [facility] Last Admin: 07/27/16 08:50 Dose: 1,000 mg Bismuth Subsalicylate (Pepto-Bismol) 524 mg PO Q6H PRN PRN Reason: Diarrhea Carvedilol (Coreg) 12.5 mg PO BID [facility] Last Admin: 07/27/16 18:28 Dose: 12.5 mg Dextrose (Dextrose 50% Inj) 0 ml IVP STAT PRN; Protocol PRN Reason: Hypoglycemia Protocol Ezetimibe (Zetia) 10 mg PO HS [facility] Last Admin: 07/27/16 21:53 Dose: 10 mg Epoetin Jameel (Procrit) 4,000 unit SC MWF [facility] Ergocalciferol (Drisdol 50,000 Intl Units Cap) 1 cap PO QWK [facility] Glucagon (Glucagen Diagnostic Kit) 0 mg IM STAT PRN; Protocol PRN Reason: Hypoglycemia Protocol Amiodarone HCl 900 mg/ (Dextrose) 518 mls @ 34.53 mls/hr IVPB .Q15H1M [facility]; 1 MG /MIN PRN Reason: Protocol Vancomycin HCl 1 gm/ Sodium (Chloride) 250 mls @ 166.667 mls/hr IVPB MWF [facility] Cefepime HCl 1 gm/ Sodium (Chloride) 100 mls @ 100 mls/hr IVPB DAILY [facility] Last Admin: 07/27/16 08:48 Dose: 100 mls/hr Piperacillin Sod/Tazobactam (Sod 2.25 gm/ Sodium Chloride) 100 mls @ 100 mls/ hr IVPB Q8H [facility] Last Admin: 07/28/16 00:40 Dose: 100 mls/hr Micafungin Sodium 100 mg/ (Sodium Chloride) 100 mls @ 100 mls/hr IVPB DAILY [facility] Last Admin: 07/27/16 15:00 Dose: 100 mls/hr Norepinephrine Bitartrate 16 (mg/ Dextrose) 266 mls @ 2.49 mls/hr IV .Q24H ONE ; 2.5 MCG/MIN PRN Reason: Protocol Stop: 07/29/16 08:25 Insulin Detemir (Levemir) 25 units SC HS [facility] Last Admin: 07/27/16 21:52 Dose: 25 units Insulin Human Regular (Humulin R) 0 units SC ACHS [facility] PRN Reason: Protocol Last Admin: 07/28/16 07:48 Dose: 4 units Midodrine (Proamatine) 10 mg PO TID PRN PRN Reason: hypotension Last Admin: 07/26/16 23:19 Dose: 10 mg Sevelamer Carbonate (Renvela) 0.8 gm PO TID [facility] Last Admin: 07/27/16 18:23 Dose: 0.8 gm Sitagliptin Phosphate (Januvia) 25 mg PO DAILY [facility] Last Admin: 07/27/16 08:47 Dose: 25 mg Tamsulosin HCl (Flomax) 0.4 mg PO DAILY [facility] Last Admin: 07/27/16 08:46 Dose: 0.4 mg Vitamin B Complex/Vit C/Folic Acid (Nephro-Carlitos) 1 tab PO DAILY [facility] Last Admin: 07/27/16 08:49 Dose: 1 tab - Labs Labs: 07/28/16 06:57 07/28/16 06:57 PT 12.5 SECONDS (9.6-11.2) H 07/17/16 04:35 INR 1.20 (0.92-1.08) H 07/17/16 04:35 APTT 34.8 SECONDS (23.3-32.5) H 07/17/16 04:35 - Constitutional Appears: No Acute Distress - Head Exam Head Exam: ATRAUMATIC, NORMAL INSPECTION, NORMOCEPHALIC - Respiratory Exam Additional comments: intubated, on vent - GI/Abdominal Exam GI & Abdominal Exam: Distended, Soft - Neurological Exam Neurological Exam: absent: Alert, Awake Assessment and Plan - Assessment and Plan (Free Text) Assessment: 80M w/ acute on chronic CKD, s/p code blue w/ acute resp failure and anoxic brain injury, intubated since 07/14 -Await family decision regarding care -If family wishes to pursue will plan for Tracheostomy Thursday -PEG to be done by GI unless they are unable to do so DW Dr Crispin Triplett PGY2
--- NOTE | 2016-07-28 08:54 | RAD ---
HISTORY: Status post re-intubation. Portable study 06:16. COMPARISON: Multiple serial examinations preceding the most recent study: July 27, 2016. Employing similar portable technique performed at 10:00 FINDINGS: LUNGS: Stable multifocal severe airspace disease/pulmonary edema. PLEURA: No significant pleural effusion identified, no pneumothorax apparent. CARDIOVASCULAR: No significant interval change compared to the prior examination(s). OSSEOUS STRUCTURES: No significant abnormalities. VISUALIZED UPPER ABDOMEN: Normal. OTHER FINDINGS: Stable, satisfactory position ventilatory, vascular apparatus. IMPRESSION: No significant interval change compared to the prior examination(s). Severe stable pulmonary edema. Stable position of support apparatus.
[2016-07-28] MEDS: Multivitamin Vitamin B Complex (Nephro-Vite) Tab PO SCH (08:59)
[2016-07-28] MEDS: Sevelamer Carb 0.8 gm/Packet PO SCH ×3 (08:59→16:01)
[2016-07-28] MEDS: Cefepime 1 GM in Sodium Chloride 0.9% 100 ML IVPB SCH (09:02)
[2016-07-28] MEDS: Micafungin 100 MG in Sodium Chloride 0.9% 100 ML IVPB SCH (09:02)
--- NOTE | 2016-07-28 09:15 | PN ---
DATE: 07/26/2016 The patient seen and examined. noted. Consults noted and appreciated. The patient remains in intensive . . PHYSICAL EXAMINATION: GENERAL: The patient is orally intubated on mechanical ventilation via endotracheal tube, tolerating current without any acute respiratory distress. VITAL SIGNS: Stable. HEART: S1, S2 normal ____. LUNGS: Good bilateral air entry. ABDOMEN: Soft, nontender. EXTREMITIES: No calf swelling, no tenderness, no acute ischemia. The patient has chronic venous sta sis. CENTRAL NERVOUS SYSTEM: Essentially unchanged. DIAGNOSTIC DATA: Available diagnostic data reviewed. Telemetry monitoring does not reveal significa nt arrhythmias. , nephrology and java software architect noted and appreciated. Overall, the patient's general condition is essentially . Long-term functional prognosis remains poor. The family is aware of the same. PLAN: As ordered. Tang Solorio MD cc: [id number] TT: 07/26/2016 17:22:46 Confirmation # [id number] Dictation # [id number] puma
[2016-07-28] MEDS: Epoetin Alfa 4000 UNIT/ML Inj SC SCH (09:55)
--- NOTE | 2016-07-28 11:06 | PCM.PROC ---
Procedures Attestation:: I certify that I have explained the specified Operation(s) or Procedure(s), risks, benefits and reasonable alternatives to the Patient and/or other person responsible. The opportunity was given to ask questions and all questions answered - Intubation Time Out Performed: Yes Sedative: None Mg Given: No Laryngoscope: Mike ET Tube Size: 8.0 ET Tube Uncuffed: No ET Tube Secured at Depth: 23cm ET Tube Secured Locarion: Lips ET Tube Placement Confirmation: Visualized Passing Through Cords, Breath Sounds Equal Bilaterally, No Breath Sounds Over Epigastrum, Confirmation w/Capnometry Patient Tolerated Procedure: Well, No Complications Procedure Immediate Complications: None (Patient reintubated because of clogged ET tube and saaturation), Unable to Intubate (reintubated because of clogged ET tube and severe Hypoxia,)
--- NOTE | 2016-07-28 11:16 | CP.CCUPN ---
CCU Subjective - Physician Review Events Since Last Encounter (Free Text): 07/28/16 11:00 Cardiac arrest x 3 this morning, requiring atropine and epinephrine pushes. CCU Objective - Vital Signs / Intake & Output Vital Signs (Last 4 hours): Vital Signs Temp Pulse Resp BP Pulse Ox 07/28/16 09:00 115 H 24 93/50 L 91 L 07/28/16 08:53 111 H 83/46 L 07/28/16 08:51 111 H 20 83/46 L 88 L 07/28/16 08:00 98.8 F 109 H 18 80/41 L 88 L Intake and Output (Last 8hrs): Intake & Output 07/27/16 07/28/16 07/28/16 22:59 06:59 14:59 Intake Total 830 210 800 Balance 830 210 800 Intake: IV 100 250 Intake, Piggyback 200 100 550 Tube Feeding 440 110 Free Water Flush 90 - Physical Exam Head: Positive for: Atraumatic, Normocephalic Pupils: Positive for: Non-Reactive Extroacular Muscles: Negative for: EOMI Conjunctiva: Negative for: Injected, Icteric Ears: Positive for: Normal Mouth: Positive for: Dry Pharnyx: Positive for: Normal Neck: Positive for: Other (Right IJ HD catheter site clean with no signs of erythema.) Respiratory/Chest: Positive for: Rhonchi, Tachypneic, Other (B/L air entry present but decreased at lung bases). Negative for: Wheezes Cardiovascular: Positive for: Regular Rate and Rhythm. Negative for: Murmurs Abdomen: Positive for: Normal Bowel Sounds. Negative for: Tenderness, Distention Genitourinary Male: Positive for: Other (Right groin TLC site clean, dry, with no surrounding erythema. ) Upper Extremity: Positive for: Edema (B/L upper extremity edema), Other ( Generalized anasarca) Lower Extremity: Positive for: Edema (3+ b/l LE), Other (Lower extremity YADIRA dressings.) Neurological: Positive for: Other (Unresponsive to verbal or painful stimuli. Pupils fixed. Corneal reflex present with occasional spontaneous blink. Mild gag reflex. Not moving extremities. No puroseful movements.). Negative for: CN II-XII Intact Psychiatric: Negative for: Alert - Medications Active Medications: Active Medications Generic Name Dose Route Start Last Admin Trade Name Freq PRN Reason Stop Dose Admin Acetaminophen 650 mg 07/18/16 20:13 07/23/16 00:30 Tylenol 325mg Tab PO 650 mg Q6 PRN Administration Pain, moderate (4-7) Acetaminophen 650 mg 07/26/16 03:55 07/26/16 04:11 Tylenol 650mg/20.3ml Solution Ud PO 650 mg Q6 PRN Administration fever Allopurinol 100 mg 07/19/16 09:00 07/28/16 09:02 Zyloprim PO Not Given DAILY [facility] Artificial Tears 2 drop 07/26/16 16:18 07/27/16 18:21 Artificial Tears OU 2 drop Q6 PRN Administration Dry eyes Ascorbic Acid 1,000 mg 07/23/16 09:00 07/28/16 08:59 Vitamin C 500 Mg Tab PO Not Given DAILY [facility] Bismuth Subsalicylate 524 mg 07/18/16 20:13 Pepto-Bismol PO Q6H PRN Diarrhea Carvedilol 12.5 mg 07/19/16 09:00 07/28/16 08:53 Coreg PO Not Given BID [facility] Dextrose 0 ml 07/18/16 20:13 Dextrose 50% Inj IVP STAT PRN Hypoglycemia Protocol Protocol Ezetimibe 10 mg 07/18/16 22:00 07/27/16 21:53 Zetia PO 10 mg HS [facility] Administration Epoetin Jameel 4,000 unit 07/28/16 09:00 07/28/16 09:55 Procrit SC Not Given MWF [facility] Ergocalciferol 1 cap 07/18/16 20:13 Drisdol 50,000 Intl Units Cap PO QWK [facility] Glucagon 0 mg 07/18/16 20:13 Glucagen Diagnostic Kit IM STAT PRN Hypoglycemia Protocol Protocol Amiodarone HCl 900 mg/ 518 mls @ 34.53 mls/hr 07/23/16 15:45 Dextrose IVPB .Q15H1M [facility] Protocol 1 MG/MIN Vancomycin HCl 1 gm/ Sodium 250 mls @ 166.667 mls/hr 07/28/16 09:00 07/28/16 09:04 Chloride IVPB 166.667 mls/hr MWF [facility] Administration Cefepime HCl 1 gm/ Sodium 100 mls @ 100 mls/hr 07/25/16 12:45 07/28/16 09:02 Chloride IVPB 100 mls/hr DAILY [facility] Administration Piperacillin Sod/Tazobactam 100 mls @ 100 mls/hr 07/26/16 01:30 07/28/16 09: 01 Sod 2.25 gm/ Sodium Chloride IVPB 100 mls/hr Q8H [facility] Administration Micafungin Sodium 100 mg/ 100 mls @ 100 mls/hr 07/27/16 13:45 07/28/16 09:02 Sodium Chloride IVPB 100 mls/hr DAILY [facility] Administration Norepinephrine Bitartrate 4 mg 254 mls @ 9.52 mls/hr 07/28/16 10:00 / Dextrose IV .Q24H [facility] Protocol 2.5 MCG/MIN Insulin Detemir 25 units 07/18/16 22:00 07/27/16 21:52 Levemir SC 25 units HS [facility] Administration Insulin Human Regular 0 units 07/19/16 06:45 07/28/16 07:48 Humulin R SC 4 units ACHS [facility] Administration Protocol Midodrine 10 mg 07/26/16 20:05 07/26/16 23:19 Proamatine PO 10 mg TID PRN Administration hypotension Sevelamer Carbonate 0.8 gm 07/19/16 09:00 07/28/16 08:59 Renvela PO Not Given TID [facility] Sitagliptin Phosphate 25 mg 07/19/16 09:00 07/28/16 08:53 Januvia PO Not Given DAILY [facility] Tamsulosin HCl 0.4 mg 07/19/16 09:00 07/28/16 08:53 Flomax PO Not Given DAILY [facility] Vitamin B Complex/Vit C/Folic Acid 1 tab 07/23/16 09:00 07/28/16 08:59 Nephro-Carlitos PO Not Given DAILY [facility] - Patient Studies Lab Studies: Microbiology Studies 07/25/16 04:20 Blood Culture - Preliminary Blood-Venous NO GROWTH AFTER 3 DAYS 07/25/16 15:00 Blood Culture - Preliminary Blood-During Dialysis NO GROWTH AFTER 48 HOURS 07/25/16 12:00 Gram Stain - Final Trachasp Sputum Culture - Final Yeast Species 07/25/16 12:00 Blood Culture - Preliminary Blood-Thru Central Line NO GROWTH AFTER 48 HOURS Lab Studies 07/28/16 07/28/16 Range/Units 06:57 06:57 WBC 13.6 H (4.8-10.8) K/uL RBC 2.73 L (4.40-5.90) Mil/uL Hgb 7.1 L (12.0-18.0) g/dL Hct 24.1 L (35.0-51.0) % MCV 88.5 D (80.0-94.0) fl MCH 26.1 L (27.0-31.0) pg MCHC 29.5 L (33.0-37.0) g/dL RDW 19.7 H (11.5-14.5) % Plt Count 271 (130-400) K/uL Sodium 139 (132-148) mmol/l Potassium 5.4 H (3.6-5.0) MMOL/L Chloride 101 (98-107) mmol/L Carbon Dioxide 21 L (22-30) mmol/L Anion Gap 22 H (10-20) BUN 69 H (9-20) mg/dl Creatinine 4.6 H (0.8-1.5) mg/dL Est GFR ( Amer) 15 Est GFR (Non-Af Amer) 12 Random Glucose 313 H (75-110) mg/dL Calcium 7.7 L (8.4-10.2) mg/dL Total Bilirubin 1.5 H (0.2-1.3) mg/dl AST 42 (17-59) U/L ALT 35 (21-72) U/L Alkaline Phosphatase 246 H (38-126) U/L Total Protein 7.3 (6.3-8.2) G/DL Albumin 2.8 L (3.5-5.0) g/dL Globulin 4.5 H (2.2-3.9) gm/dL Albumin/Globulin Ratio 0.6 L (1.0-2.1) Laboratory Results - last 24 hr 07/28/16 07/28/16 06:57 06:57 WBC 13.6 H RBC 2.73 L Hgb 7.1 L Hct 24.1 L MCV 88.5 D MCH 26.1 L MCHC 29.5 L RDW 19.7 H Plt Count 271 Sodium 139 Potassium 5.4 H Chloride 101 Carbon Dioxide 21 L Anion Gap 22 H BUN 69 H Creatinine 4.6 H Est GFR ( Amer) 15 Est GFR (Non-Af Amer) 12 Random Glucose 313 H Calcium 7.7 L Total Bilirubin 1.5 H AST 42 ALT 35 Alkaline Phosphatase 246 H Total Protein 7.3 Albumin 2.8 L Globulin 4.5 H Albumin/Globulin Ratio 0.6 L Fingerstick Blood Sugar Results: 209 Review of Systems - Review of Systems Systems not reviewed;Unavailable: Altered Mental Status Critical Care Progress Note - Ventilator Checklist Head of Bed 30 Degrees: Yes Daily Sedation Vacation: Yes Daily Assessment of Readiness to Wean: Yes Daily Spontaneous Breathing Trial: Yes PUD Prophalyxis: Yes DVT Prophylaxis: Yes Assessment/Plan (1) Cardiac arrest Assessment and plan: 80 y/o with PMH including HTN, DM2, Hyperlipidemia, Morbid obesity, CKD Stage IV. p/w LE cellulitis with acute on chronic CKD. Cardiac arrest (07/14/16). Now in severe ARDS with recurrent cardiac arrest, and multi-organ dysfunction syndrome (MODS). Anoxic Brain Injury -Secondary to cardiac arrest for over 10 minutes with hypoxemia on 07/14/16 -Absent pupillary response. Corneal reflex present. Dolls eyes negative. Gag reflex absent however carinal reflex can be elicited. 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 -Patient intubated on 07/14/16 due to cardiac/respiratory arrest -Currently on mechanical ventilation, day 12 -Vent settings yesterday 10/500/5/40%, however FiO2 increased to 80% overnight due to decreased PO2 of 49 on ABG -Patient remains breathing over vent at RR of 18, tolerating well with O2 sat of 100% -Despite stable spontaneous breathing pattern, patient not a good candidate for extubation due to inability to protect airway. -If family wishes to continue full code status, will consider early tracheostomy and PICC moving forward Sepsis, with Strep Anginosus Bacteremia -Etiology secondary to GI vs Aspiration pneumonia -Tmax 24 hrs: 103.1F, WBC: 12.6 -Blood culture from 07/09 detected strep anginosus sensitive to Vancomycin -Venous blood culture obtained overnight during febrile episode -Will obtain blood cultures today from IJ during dialysis and femoral line -Vancomycin trough for today prior to dialysis -Has required phenylephrine pressor earlier in admission however is currently off pressors -Currently on empiric abx: Vancomycin 1gm IV Q72h (Since 07/13) and Zosyn 2.25 gm IV Q8h (Started 07/11, day 15) Acute on Chronic Kidney Failure -Has been following with nephrology, Dr Morse as outpatient -BUN/Cr: 82/6.0 -Started on HD during admission, which patient has been receiving on MWF schedule. Nephro recently added additional dialysis for Saturdays -For scheduled dialysis today Paroxysmal Atrial Fibrillation -Had episodes of afib during dialysis which resolved with amiodarone. -Rate controlled. Sinus rhythm today. Will monitor. Feeds -Nepro via OGT DVT Prophylaxis -Heparin 5,000units SC Q8H Code Status -Full code Patient had hypoxic bradycardic arrest x 3 this morning, resuscitated each time with epinephrine and atropine pushes. Patient had a clogged ET tube from blood which may have exacerbated the hypoxia. Had a long conversation with the family members today about the patient's poor prognosis given multiple cardiac arrests and multiorgan dysfunction. Patient's family is considering comfort care. Current Visit: Yes Status: Acute Comment: No neurological improvements Remains intubated, not breathing over the vent Unresponsive to painful stimuli EEG Neurology evaluation appreciated
[2016-07-28 13:18] VITALS: BMI 40.7
--- NOTE | 2016-07-28 14:12 | CP.PCM.PN ---
Subjective - Date & Time of Evaluation Date of Evaluation: 07/28/16 Time of Evaluation: 14:06 - Subjective Subjective: Mr. Montalvo was seen and examined today at bedside in the ICU. I had a meeting with his family and discussed the current morbid clinical status. The patient was coded again last night after issues with the ET tube. He continues to have worsening multi-organ failure. He has no significant cortical activity based on exam and does not have midbrain reflexes. He has pontine and medullary reflexes. Objective - Vital Signs/Intake and Output Vital Signs (last 24 hours): Temp Pulse Resp BP Pulse Ox 100 F H 117 H 24 95/67 L 95 07/28/16 13:11 07/28/16 13:11 07/28/16 13:11 07/28/16 13:11 07/28/16 13:11 Intake and Output: 07/28/16 07/28/16 06:59 18:59 Intake Total 470 1004 Balance 470 1004 - Medications Medications: Current Medications Acetaminophen (Tylenol 325mg Tab) 650 mg PO Q6 PRN PRN Reason: Pain, moderate (4-7) Last Admin: 07/23/16 00:30 Dose: 650 mg Acetaminophen (Tylenol 650mg/20.3ml Solution Ud) 650 mg PO Q6 PRN PRN Reason: fever Last Admin: 07/26/16 04:11 Dose: 650 mg Allopurinol (Zyloprim) 100 mg PO DAILY [facility] Last Admin: 07/28/16 09:02 Dose: Not Given Artificial Tears (Artificial Tears) 2 drop OU Q6 PRN PRN Reason: Dry eyes Last Admin: 07/27/16 18:21 Dose: 2 drop Ascorbic Acid (Vitamin C 500 Mg Tab) 1,000 mg PO DAILY [facility] Last Admin: 07/28/16 08:59 Dose: Not Given Bismuth Subsalicylate (Pepto-Bismol) 524 mg PO Q6H PRN PRN Reason: Diarrhea Carvedilol (Coreg) 12.5 mg PO BID [facility] Last Admin: 07/28/16 08:53 Dose: Not Given Dextrose (Dextrose 50% Inj) 0 ml IVP STAT PRN; Protocol PRN Reason: Hypoglycemia Protocol Ezetimibe (Zetia) 10 mg PO HS [facility] Last Admin: 07/27/16 21:53 Dose: 10 mg Epoetin Jameel (Procrit) 4,000 unit SC MWF [facility] Last Admin: 07/28/16 09:55 Dose: Not Given Ergocalciferol (Drisdol 50,000 Intl Units Cap) 1 cap PO QWK [facility] Glucagon (Glucagen Diagnostic Kit) 0 mg IM STAT PRN; Protocol PRN Reason: Hypoglycemia Protocol Amiodarone HCl 900 mg/ (Dextrose) 518 mls @ 34.53 mls/hr IVPB .Q15H1M [facility]; 1 MG /MIN PRN Reason: Protocol Vancomycin HCl 1 gm/ Sodium (Chloride) 250 mls @ 166.667 mls/hr IVPB MWF [facility] Last Admin: 07/28/16 09:04 Dose: 166.667 mls/hr Cefepime HCl 1 gm/ Sodium (Chloride) 100 mls @ 100 mls/hr IVPB DAILY [facility] Last Admin: 07/28/16 09:02 Dose: 100 mls/hr Piperacillin Sod/Tazobactam (Sod 2.25 gm/ Sodium Chloride) 100 mls @ 100 mls/ hr IVPB Q8H [facility] Last Admin: 07/28/16 09:01 Dose: 100 mls/hr Micafungin Sodium 100 mg/ (Sodium Chloride) 100 mls @ 100 mls/hr IVPB DAILY [facility] Last Admin: 07/28/16 09:02 Dose: 100 mls/hr Norepinephrine Bitartrate 4 mg (/ Dextrose) 254 mls @ 9.52 mls/hr IV .Q24H [facility] ; 2.5 MCG/MIN PRN Reason: Protocol Last Titration: 07/28/16 09:00 Dose: 7.5 mcg/min, 28.57 mls/hr Insulin Detemir (Levemir) 25 units SC [facility] Last Admin: 07/27/16 21:52 Dose: 25 units Insulin Human Regular (Humulin R) 0 units SC ACHS [facility] PRN Reason: Protocol Last Admin: 07/28/16 12:20 Dose: 6 units Midodrine (Proamatine) 10 mg PO TID PRN PRN Reason: hypotension Last Admin: 07/26/16 23:19 Dose: 10 mg Sevelamer Carbonate (Renvela) 0.8 gm PO TID [facility] Last Admin: 07/28/16 12:21 Dose: Not Given Sitagliptin Phosphate (Januvia) 25 mg PO DAILY [facility] Last Admin: 07/28/16 08:53 Dose: Not Given Tamsulosin HCl (Flomax) 0.4 mg PO DAILY [facility] Last Admin: 07/28/16 08:53 Dose: Not Given Vitamin B Complex/Vit C/Folic Acid (Nephro-Carlitos) 1 tab PO DAILY [facility] Last Admin: 07/28/16 08:59 Dose: Not Given - Labs Labs: 07/28/16 06:57 07/28/16 06:57 PT 12.5 SECONDS (9.6-11.2) H 07/17/16 04:35 INR 1.20 (0.92-1.08) H 07/17/16 04:35 APTT 34.8 SECONDS (23.3-32.5) H 07/17/16 04:35 - Constitutional Appears: Chronically Ill - Head Exam Additional comments: ET tube in place with bloody drainage. - Eye Exam Pupil Exam: Fixed - Respiratory Exam Respiratory Exam: Respiratory Distress - Cardiovascular Exam Cardiovascular Exam: Irregular Rhythm - Neurological Exam Additional comments: CN 2-3 not responsive, CN 5,7 respond, medullary function is intact. Some response to voice, may be reflex or coincidental. Does not withdraw any extremities to pain and has some grimace. Assessment and Plan (1) Anoxic brain injury Assessment & Plan: Will obtain repeat CT scan to evaluate now for brainstem infarct and progressive edema. MRI was not done due to patient instability. Will continue following and will discuss with family. After my discussion with them today, they were agreeing to make the patient DNR. Status: Acute
--- NOTE | 2016-07-28 19:12 | CP.PCM.PN ---
Subjective - Date & Time of Evaluation Date of Evaluation: 07/28/16 Time of Evaluation: 15:00 - Subjective Subjective: SEEN ON RENAL F/U IN ICU ALL PREVIOUS EMR REVIEWED NOT DOING WELL WAS CODED X 3 EARLY TODAY Objective - Vital Signs/Intake and Output Vital Signs (last 24 hours): Temp Pulse Resp BP Pulse Ox 100 F H 98 H 17 82/50 L 100 07/28/16 16:00 07/28/16 18:00 07/28/16 18:00 07/28/16 18:00 07/28/16 18:00 Intake and Output: 07/28/16 07/29/16 18:59 06:59 Intake Total 2254 Balance 2254 - Medications Medications: Current Medications Acetaminophen (Tylenol 325mg Tab) 650 mg PO Q6 PRN PRN Reason: Pain, moderate (4-7) Last Admin: 07/23/16 00:30 Dose: 650 mg Acetaminophen (Tylenol 650mg/20.3ml Solution Ud) 650 mg PO Q6 PRN PRN Reason: fever Last Admin: 07/26/16 04:11 Dose: 650 mg Allopurinol (Zyloprim) 100 mg PO DAILY [facility] Last Admin: 07/28/16 09:02 Dose: Not Given Artificial Tears (Artificial Tears) 2 drop OU Q6 PRN PRN Reason: Dry eyes Last Admin: 07/27/16 18:21 Dose: 2 drop Ascorbic Acid (Vitamin C 500 Mg Tab) 1,000 mg PO DAILY [facility] Last Admin: 07/28/16 08:59 Dose: Not Given Bismuth Subsalicylate (Pepto-Bismol) 524 mg PO Q6H PRN PRN Reason: Diarrhea Carvedilol (Coreg) 12.5 mg PO BID [facility] Last Admin: 07/28/16 17:37 Dose: Not Given Dextrose (Dextrose 50% Inj) 0 ml IVP STAT PRN; Protocol PRN Reason: Hypoglycemia Protocol Ezetimibe (Zetia) 10 mg PO HS [facility] Last Admin: 07/27/16 21:53 Dose: 10 mg Epoetin Jameel (Procrit) 4,000 unit SC MWF [facility] Last Admin: 07/28/16 09:55 Dose: Not Given Ergocalciferol (Drisdol 50,000 Intl Units Cap) 1 cap PO QWK [facility] Glucagon (Glucagen Diagnostic Kit) 0 mg IM STAT PRN; Protocol PRN Reason: Hypoglycemia Protocol Amiodarone HCl 900 mg/ (Dextrose) 518 mls @ 34.53 mls/hr IVPB .Q15H1M [facility]; 1 MG /MIN PRN Reason: Protocol Vancomycin HCl 1 gm/ Sodium (Chloride) 250 mls @ 166.667 mls/hr IVPB MWF [facility] Last Admin: 07/28/16 09:04 Dose: 166.667 mls/hr Cefepime HCl 1 gm/ Sodium (Chloride) 100 mls @ 100 mls/hr IVPB DAILY [facility] Last Admin: 07/28/16 09:02 Dose: 100 mls/hr Piperacillin Sod/Tazobactam (Sod 2.25 gm/ Sodium Chloride) 100 mls @ 100 mls/ hr IVPB Q8H [facility] Last Admin: 07/28/16 17:40 Dose: 100 mls/hr Micafungin Sodium 100 mg/ (Sodium Chloride) 100 mls @ 100 mls/hr IVPB DAILY [facility] Last Admin: 07/28/16 09:02 Dose: 100 mls/hr Norepinephrine Bitartrate 4 mg (/ Dextrose) 254 mls @ 9.52 mls/hr IV .Q24H [facility] ; 2.5 MCG/MIN PRN Reason: Protocol Last Admin: 07/28/16 15:59 Dose: 7.5 mcg/min, 28.57 mls/hr Insulin Detemir (Levemir) 25 units SC [facility] Last Admin: 07/27/16 21:52 Dose: 25 units Insulin Human Regular (Humulin R) 0 units SC ACHS [facility] PRN Reason: Protocol Last Admin: 07/28/16 16:04 Dose: 8 units Midodrine (Proamatine) 10 mg PO TID PRN PRN Reason: hypotension Last Admin: 07/26/16 23:19 Dose: 10 mg Sevelamer Carbonate (Renvela) 0.8 gm PO TID [facility] Last Admin: 07/28/16 16:01 Dose: Not Given Sitagliptin Phosphate (Januvia) 25 mg PO DAILY [facility] Last Admin: 07/28/16 08:53 Dose: Not Given Tamsulosin HCl (Flomax) 0.4 mg PO DAILY [facility] Last Admin: 07/28/16 08:53 Dose: Not Given Vitamin B Complex/Vit C/Folic Acid (Nephro-Carlitos) 1 tab PO DAILY [facility] Last Admin: 07/28/16 08:59 Dose: Not Given - Labs Labs: 07/28/16 06:57 07/28/16 06:57 PT 12.5 SECONDS (9.6-11.2) H 07/17/16 04:35 INR 1.20 (0.92-1.08) H 07/17/16 04:35 APTT 34.8 SECONDS (23.3-32.5) H 07/17/16 04:35 Assessment and Plan - Assessment and Plan (Free Text) Assessment: A ON CKD .. ON HD M W F AND SAT ANEMIA OF CKD VDRF .. ON VENT MULTIPLE CO MORBIDITIES P : D/W [employer]PER[employer] LOW BP .. CAN NOT TOLERATE HD C/O CONSERVATIVE MANAGEMENT
[2016-07-28] MEDS ORDERED: DOPamine 400mg/250ml D5W 400 MG/250 ML BAG IV ONE (20:44)
[2016-07-28] MEDS: Insulin Detemir 100 Units/ml Inj SC SCH (21:54)
[2016-07-28] MEDS ORDERED: Chlorhexidine Gluconate 1 APPL/PKT TP ONE (23:01)
[2016-07-28] MEDS: Acetaminophen 650mg/20.3ml solution UD PO PRN (23:38)
[2016-07-29 05:02] LABS: HEMATOCRIT 22.4 % (35.0-51.0); MEAN CELL VOLUME 85.5 fl (80.0-94.0); MEAN CORPUSCULAR HEMOGLOBIN 26.3 pg (27.0-31.0); MEAN CORPUSCULAR HGB CONC 30.8 g/dL (33.0-37.0); RED CELL DISTRIBUTION WIDTH 19.2 % (11.5-14.5); WHITE BLOOD COUNT 11.9 K/uL (4.8-10.8)
[2016-07-29 05:14] LABS: ALB/GLOB RATIO 0.6 (1.0-2.1); BILIRUBIN,TOTAL 1.1 mg/dl (0.2-1.3); CALCIUM 7.7 mg/dL (8.4-10.2); POTASSIUM 5.2 MMOL/L (3.6-5.0); TOTAL PROTEIN 7.2 G/DL (6.3-8.2)
[2016-07-29 05:16] LABS: ABG ALLEN TEST YES; ABG MECHANICAL RATE 14; ARTERIAL BLOOD GAS HCO3 23.7 mmol/L (21-28); ARTERIAL BLOOD GAS MODE A/C; ARTERIAL BLOOD GAS O2 CAPACITY 10.9 mL/dL (16-24); ARTERIAL BLOOD GAS O2 CONTENT 10.9 ML/dL (15-23); ARTERIAL BLOOD GAS PH 7.36 (7.35-7.45); ARTERIAL BLOOD GAS PO2 232 mm/Hg (80-100); ARTERIAL BLOOD HGB O2 SAT 97.4 % (95.0-98.0); ATERIAL BLOOD GAS PEEP 5; CARBOXYHEMOGLOBIN 0.6 % (0.5-1.5); HHB 0.4 % (0.0-5.0); METHEMOGLOBIN 1.6 % (0.0-3.0)
--- NOTE | 2016-07-29 07:20 | CP.PCM.PN ---
Subjective - Date & Time of Evaluation Date of Evaluation: 07/29/16 Time of Evaluation: 07:18 - Subjective Subjective: General Surgery Consult Note for Dr. Roa This 80M was seen and examined this AM at bedside.. Nurse reports not acute events overnight. Patient is intubated no clinical interval change. Objective - Vital Signs/Intake and Output Vital Signs (last 24 hours): Temp Pulse Resp BP Pulse Ox 99.2 F 83 19 114/67 100 07/29/16 04:00 07/29/16 06:00 07/29/16 06:00 07/29/16 06:00 07/29/16 06:00 Intake and Output: 07/29/16 07/29/16 06:59 18:59 Intake Total 604 Balance 604 - Medications Medications: Current Medications Acetaminophen (Tylenol 325mg Tab) 650 mg PO Q6 PRN PRN Reason: Pain, moderate (4-7) Last Admin: 07/23/16 00:30 Dose: 650 mg Acetaminophen (Tylenol 650mg/20.3ml Solution Ud) 650 mg PO Q6 PRN PRN Reason: fever Last Admin: 07/28/16 23:38 Dose: 650 mg Allopurinol (Zyloprim) 100 mg PO DAILY [facility] Last Admin: 07/28/16 09:02 Dose: Not Given Artificial Tears (Artificial Tears) 2 drop OU Q6 PRN PRN Reason: Dry eyes Last Admin: 07/27/16 18:21 Dose: 2 drop Ascorbic Acid (Vitamin C 500 Mg Tab) 1,000 mg PO DAILY [facility] Last Admin: 07/28/16 08:59 Dose: Not Given Bismuth Subsalicylate (Pepto-Bismol) 524 mg PO Q6H PRN PRN Reason: Diarrhea Carvedilol (Coreg) 12.5 mg PO BID [facility] Last Admin: 07/28/16 17:37 Dose: Not Given Dextrose (Dextrose 50% Inj) 0 ml IVP STAT PRN; Protocol PRN Reason: Hypoglycemia Protocol Ezetimibe (Zetia) 10 mg PO HS [facility] Last Admin: 07/28/16 21:56 Dose: Not Given Epoetin Jameel (Procrit) 4,000 unit SC MWF [facility] Last Admin: 07/28/16 09:55 Dose: Not Given Ergocalciferol (Drisdol 50,000 Intl Units Cap) 1 cap PO QWK [facility] Glucagon (Glucagen Diagnostic Kit) 0 mg IM STAT PRN; Protocol PRN Reason: Hypoglycemia Protocol Amiodarone HCl 900 mg/ (Dextrose) 518 mls @ 34.53 mls/hr IVPB .Q15H1M [facility]; 1 MG /MIN PRN Reason: Protocol Vancomycin HCl 1 gm/ Sodium (Chloride) 250 mls @ 166.667 mls/hr IVPB MWF [facility] Last Admin: 07/28/16 09:04 Dose: 166.667 mls/hr Cefepime HCl 1 gm/ Sodium (Chloride) 100 mls @ 100 mls/hr IVPB DAILY [facility] Last Admin: 07/28/16 09:02 Dose: 100 mls/hr Piperacillin Sod/Tazobactam (Sod 2.25 gm/ Sodium Chloride) 100 mls @ 100 mls/ hr IVPB Q8H [facility] Last Admin: 07/29/16 00:52 Dose: 100 mls/hr Micafungin Sodium 100 mg/ (Sodium Chloride) 100 mls @ 100 mls/hr IVPB DAILY [facility] Last Admin: 07/28/16 09:02 Dose: 100 mls/hr Norepinephrine Bitartrate 4 mg (/ Dextrose) 254 mls @ 9.52 mls/hr IV .Q24H [facility] ; 2.5 MCG/MIN PRN Reason: Protocol Last Admin: 07/29/16 05:33 Dose: 12.5 mcg/min, 47.62 mls/hr Insulin Detemir (Levemir) 25 units SC [facility] Last Admin: 07/28/16 21:54 Dose: 25 units Insulin Human Regular (Humulin R) 0 units SC ACHS [facility] PRN Reason: Protocol Last Admin: 07/28/16 23:05 Dose: Not Given Midodrine (Proamatine) 10 mg PO TID PRN PRN Reason: hypotension Last Admin: 07/26/16 23:19 Dose: 10 mg Sevelamer Carbonate (Renvela) 0.8 gm PO TID [facility] Last Admin: 07/28/16 16:01 Dose: Not Given Sitagliptin Phosphate (Januvia) 25 mg PO DAILY [facility] Last Admin: 07/28/16 08:53 Dose: Not Given Tamsulosin HCl (Flomax) 0.4 mg PO DAILY [facility] Last Admin: 07/28/16 08:53 Dose: Not Given Vitamin B Complex/Vit C/Folic Acid (Nephro-Carlitos) 1 tab PO DAILY [facility] Last Admin: 07/28/16 08:59 Dose: Not Given - Labs Labs: 07/29/16 04:20 07/29/16 04:20 PT 12.5 SECONDS (9.6-11.2) H 07/17/16 04:35 INR 1.20 (0.92-1.08) H 07/17/16 04:35 APTT 34.8 SECONDS (23.3-32.5) H 07/17/16 04:35 - Eye Exam Additional comments: Pupils non equal and non reactive to light - Respiratory Exam Additional comments: intubated Assessment and Plan - Assessment and Plan (Free Text) Assessment: 80M w/ acute on chronic CKD, s/p code blue w/ acute resp failure and anoxic brain injury, intubated since 07/14 -Family to be in later today to discuss care -Continue to wean down Fio2, goal of 40% -If family wishes to pursue will plan for Tracheostomy -PEG to be done by GI unless they are unable to do so DW Dr. Crispin Caldera PGY-1
[2016-07-29] MEDS: Insulin Regular 100 units/ml SC SCH ×4 (08:26→22:07)
[2016-07-29] MEDS: Micafungin 100 MG in Sodium Chloride 0.9% 100 ML IVPB SCH (08:27)
[2016-07-29] MEDS: Cefepime 1 GM in Sodium Chloride 0.9% 100 ML IVPB SCH (09:07)
--- NOTE | 2016-07-29 09:43 | CP.PCM.PN ---
<Mary Britton - Last Filed: 07/29/16 09:53> Subjective - Date & Time of Evaluation Date of Evaluation: 07/29/16 Time of Evaluation: 09:41 - Subjective Subjective: evaluated with attending. overnight events, coded x3. pt intubated and ET tube replaced. no eye movement, no extremity movement to command, no painful stimuli response. no ROS d/t lack of verbal response. HD MWFS, depending on vital signs Objective - Vital Signs/Intake and Output Vital Signs (last 24 hours): Temp Pulse Resp BP Pulse Ox 98.6 F 84 15 101/75 100 07/29/16 08:00 07/29/16 08:00 07/29/16 08:00 07/29/16 08:00 07/29/16 08:00 Intake and Output: 07/29/16 07/29/16 06:59 18:59 Intake Total 604 Balance 604 - Medications Medications: Current Medications Acetaminophen (Tylenol 325mg Tab) 650 mg PO Q6 PRN PRN Reason: Pain, moderate (4-7) Last Admin: 07/23/16 00:30 Dose: 650 mg Acetaminophen (Tylenol 650mg/20.3ml Solution Ud) 650 mg PO Q6 PRN PRN Reason: fever Last Admin: 07/28/16 23:38 Dose: 650 mg Allopurinol (Zyloprim) 100 mg PO DAILY [facility] Last Admin: 07/28/16 09:02 Dose: Not Given Artificial Tears (Artificial Tears) 2 drop OU Q6 PRN PRN Reason: Dry eyes Last Admin: 07/27/16 18:21 Dose: 2 drop Ascorbic Acid (Vitamin C 500 Mg Tab) 1,000 mg PO DAILY [facility] Last Admin: 07/28/16 08:59 Dose: Not Given Bismuth Subsalicylate (Pepto-Bismol) 524 mg PO Q6H PRN PRN Reason: Diarrhea Carvedilol (Coreg) 12.5 mg PO BID [facility] Last Admin: 07/28/16 17:37 Dose: Not Given Dextrose (Dextrose 50% Inj) 0 ml IVP STAT PRN; Protocol PRN Reason: Hypoglycemia Protocol Ezetimibe (Zetia) 10 mg PO HS [facility] Last Admin: 07/28/16 21:56 Dose: Not Given Epoetin Jameel (Procrit) 4,000 unit SC MWF [facility] Last Admin: 07/28/16 09:55 Dose: Not Given Ergocalciferol (Drisdol 50,000 Intl Units Cap) 1 cap PO QWK [facility] Glucagon (Glucagen Diagnostic Kit) 0 mg IM STAT PRN; Protocol PRN Reason: Hypoglycemia Protocol Amiodarone HCl 900 mg/ (Dextrose) 518 mls @ 34.53 mls/hr IVPB .Q15H1M [facility]; 1 MG /MIN PRN Reason: Protocol Vancomycin HCl 1 gm/ Sodium (Chloride) 250 mls @ 166.667 mls/hr IVPB MWF [facility] Last Admin: 07/28/16 09:04 Dose: 166.667 mls/hr Cefepime HCl 1 gm/ Sodium (Chloride) 100 mls @ 100 mls/hr IVPB DAILY [facility] Last Admin: 07/29/16 09:07 Dose: 100 mls/hr Piperacillin Sod/Tazobactam (Sod 2.25 gm/ Sodium Chloride) 100 mls @ 100 mls/ hr IVPB Q8H [facility] Last Admin: 07/29/16 08:57 Dose: 100 mls/hr Micafungin Sodium 100 mg/ (Sodium Chloride) 100 mls @ 100 mls/hr IVPB DAILY [facility] Last Admin: 07/29/16 08:27 Dose: 100 mls/hr Norepinephrine Bitartrate 4 mg (/ Dextrose) 254 mls @ 9.52 mls/hr IV .Q24H [facility] ; 2.5 MCG/MIN PRN Reason: Protocol Last Admin: 07/29/16 05:33 Dose: 12.5 mcg/min, 47.62 mls/hr Insulin Detemir (Levemir) 25 units SC [facility] Last Admin: 07/28/16 21:54 Dose: 25 units Insulin Human Regular (Humulin R) 0 units SC ACHS [facility] PRN Reason: Protocol Last Admin: 07/29/16 08:26 Dose: 4 units Midodrine (Proamatine) 10 mg PO TID PRN PRN Reason: hypotension Last Admin: 07/26/16 23:19 Dose: 10 mg Sevelamer Carbonate (Renvela) 0.8 gm PO TID [facility] Last Admin: 07/28/16 16:01 Dose: Not Given Sitagliptin Phosphate (Januvia) 25 mg PO DAILY [facility] Last Admin: 07/28/16 08:53 Dose: Not Given Tamsulosin HCl (Flomax) 0.4 mg PO DAILY [facility] Last Admin: 07/28/16 08:53 Dose: Not Given Vitamin B Complex/Vit C/Folic Acid (Nephro-Carlitos) 1 tab PO DAILY [facility] Last Admin: 07/28/16 08:59 Dose: Not Given - Labs Labs: 07/29/16 04:20 07/29/16 04:20 PT 12.5 SECONDS (9.6-11.2) H 07/17/16 04:35 INR 1.20 (0.92-1.08) H 07/17/16 04:35 APTT 34.8 SECONDS (23.3-32.5) H 07/17/16 04:35 - Constitutional Appears: Non-toxic, No Acute Distress - Head Exam Head Exam: NORMAL INSPECTION - Eye Exam Additional comments: no eye movement - ENT Exam Additional comments: intubated - Neck Exam Neck Exam: Normal Inspection - Respiratory Exam Respiratory Exam: NORMAL BREATHING PATTERN Additional comments: MV support - Cardiovascular Exam Cardiovascular Exam: REGULAR RHYTHM - GI/Abdominal Exam GI & Abdominal Exam: Soft - Extremities Exam Extremities Exam: Pedal Edema - Neurological Exam Neurological Exam: absent: Alert, Awake, Oriented x3 Additional comments: intubated, GCS 2, E1V(T)M1 - Skin Skin Exam: Dry Assessment and Plan - Assessment and Plan (Free Text) Assessment: 80yo M with PMHx HTN, diabetes, prostate BPH and CKD admitted for acute on chronic kidney injury, cellulitis. Currently in ICU for bacteremia with anoxic brain injury on ventilator and unresponsive. DNR. HD M/W/F/S. cardiac arrest -Cardio on board, appreciate input -neuro on board, appreciate input -bottom stainer on board, appreciate input -code status DNR respiratory failure -Cardio on board, appreciate input -neuro on board, appreciate input -bottom stainer on board, appreciate input -surgery on board, appreciate input. possible trach -intubated MV 20/07/50% bacteremia -2/2 cellulitis, PNA, or other source. h/o cath placement -blood cx: S anginosus/constellatus -ID on board, appreciate input -Cefepime, Micafungin, Vanc, Zosyn -pressors aspiration PNA -CXR 07/21/16: no interval change -ID on board, appreciate input -intubated MV 14/5/50% -Vanc/Zosyn pAfib -Cardio on board, appreciate input -coreg -amiodarone acute on CKD -HD M/W/F/S -Nephro on board, appreciate input cellulitis -Vanc/Zosyn -ID on board, appreciate input -podiatry on board, appreciate input anoxic brain injury -GCS 2, E1V(T)M1 -2/2 renal failure, sepsis, or cardiorenal syndrome -CT head no acute change -neuro on board, appreciate input -intubated MV 14//50% -EEG -not able to send for MRI -repeat CT head anemia -EPO -FOBT neg -Nephro on board, appreciate input anasarca -low albumin -monitor -HD -Nephro on board, appreciate input HTN -coreg HLD -statin -zetia DM -held linagliptin, pioglitazone -januvia -levemir -SSI -accuchecks DVT ppx -heparin <Solorio,Tang K - Last Filed: 08/01/16 17:49> Objective - Vital Signs/Intake and Output Vital Signs (last 24 hours): Temp Pulse Resp BP Pulse Ox 98.8 F 76 20 101/61 100 08/01/16 16:00 08/01/16 16:32 08/01/16 16:00 08/01/16 16:32 08/01/16 16:00 Intake and Output: 08/01/16 08/01/16 06:59 18:59 Intake Total 760 1334 Output Total 0 500 Balance 760 834 - Medications Medications: Current Medications Acetaminophen (Tylenol 650mg/20.3ml Solution Ud) 650 mg PO Q6 PRN PRN Reason: fever Last Admin: 07/28/16 23:38 Dose: 650 mg Acetaminophen (Tylenol 325mg Tab) 650 mg PO Q6H PRN PRN Reason: Pain, moderate (4-7) Allopurinol (Zyloprim) 100 mg PO DAILY [facility] Last Admin: 08/01/16 16:37 Dose: 100 mg Artificial Tears (Artificial Tears) 2 drop OU Q6 PRN PRN Reason: Dry eyes Last Admin: 08/01/16 08:46 Dose: 2 drop Ascorbic Acid (Vitamin C 500 Mg Tab) 1,000 mg PO DAILY [facility] Last Admin: 08/01/16 16:35 Dose: 1,000 mg Bismuth Subsalicylate (Pepto-Bismol) 524 mg PO Q6H PRN PRN Reason: Diarrhea Carvedilol (Coreg) 12.5 mg PO BID [facility] Last Admin: 08/01/16 16:32 Dose: 12.5 mg Dextrose (Dextrose 50% Inj) 0 ml IVP STAT PRN; Protocol PRN Reason: Hypoglycemia Protocol Ezetimibe (Zetia) 10 mg PO [facility] Last Admin: 07/31/16 22:06 Dose: 10 mg Epoetin Jameel (Procrit) 4,000 unit SC [facility] Last Admin: 08/01/16 08:50 Dose: 4,000 unit Ergocalciferol (Drisdol 50,000 Intl Units Cap) 1 cap PO QWK [facility] Glucagon (Glucagen Diagnostic Kit) 0 mg IM STAT PRN; Protocol PRN Reason: Hypoglycemia Protocol Heparin Sodium (Porcine) (Heparin) 5,000 units SC Q8 [facility] PRN Reason: Protocol Last Admin: 08/01/16 16:32 Dose: 5,000 units Vancomycin HCl 1 gm/ Sodium (Chloride) 250 mls @ 166.667 mls/hr IVPB MWF [facility] Last Admin: 08/01/16 08:51 Dose: 166.667 mls/hr Micafungin Sodium 100 mg/ (Sodium Chloride) 100 mls @ 100 mls/hr IVPB DAILY [facility] Last Admin: 08/01/16 08:49 Dose: 100 mls/hr Cefepime HCl 1 gm/ Sodium (Chloride) 100 mls @ 100 mls/hr IVPB DAILY [facility] Last Admin: 08/01/16 08:48 Dose: 100 mls/hr Piperacillin Sod/Tazobactam (Sod 2.25 gm/ Sodium Chloride) 100 mls @ 100 mls/ hr IVPB Q8 [facility] Last Admin: 08/01/16 16:36 Dose: 100 mls/hr Insulin Detemir (Levemir) 25 units SC [facility] Last Admin: 08/01/16 00:00 Dose: 25 units Insulin Human Regular (Humulin R) 0 units SC [facility] PRN Reason: Protocol Last Admin: 08/01/16 16:33 Dose: Not Given Midodrine (Proamatine) 10 mg PO Q8H [facility] Last Admin: 08/01/16 16:34 Dose: 10 mg Pantoprazole Sodium (Protonix Susp) 40 mg PO DAILY [facility] Last Admin: 08/01/16 16:34 Dose: 40 mg Sevelamer Carbonate (Renvela) 0.8 gm PO TID [facility] Last Admin: 08/01/16 16:35 Dose: 0.8 gm Sitagliptin Phosphate (Januvia) 25 mg PO DAILY [facility] Last Admin: 08/01/16 16:34 Dose: 25 mg Tamsulosin HCl (Flomax) 0.4 mg PO DAILY [facility] Last Admin: 08/01/16 16:32 Dose: 0.4 mg Vitamin B Complex/Vit C/Folic Acid (Nephro-Carlitos) 1 tab PO DAILY [facility] Last Admin: 08/01/16 16:34 Dose: 1 tab - Labs Labs: 08/01/16 04:20 08/01/16 04:20 PT 12.7 SECONDS (9.6-11.2) H 07/31/16 04:40 INR 1.22 (0.92-1.08) H 07/31/16 04:40 APTT 30.1 SECONDS (23.3-32.5) 07/31/16 04:40 Assessment and Plan - Assessment and Plan (Free Text) Assessment: Patient seen and examined with residents in rounds. Case, condition, investigative work up and plan discussed in detail. Agree with residents progress note. Plan: As ordered. (Tang Solorio MD)
[2016-07-29] MEDS: Artificial Tears Opht Soln OU PRN ×2 (10:32→17:14)
[2016-07-29] MEDS: Multivitamin Vitamin B Complex (Nephro-Vite) Tab PO SCH (10:34)
[2016-07-29] MEDS: Sevelamer Carb 0.8 gm/Packet PO SCH ×3 (10:35→17:10)
[2016-07-29] MEDS: Pantoprazole 40 mg Susp UD PO SCH (11:06)
--- NOTE | 2016-07-29 11:34 | CP.CCUPN ---
<Cee Garcia - Last Filed: 07/29/16 13:38> CCU Subjective - Physician Review Subjective (Free Text): 07/29/16 11:36 Patient seen and examined at bedside with ICU attending during morning rounds. Patient had code blue called 3 times yesterday (07/28), early AM. For the remainder of yesterday, and overnight, he remained stable on levophed drip running @12.5mcg/min. He was febrile overnight at 100.6 F. Daughter states family wishes patient to be on full code status. Patient remains unresponsive to verbal/physical stimuli and on mechanical ventilation. CCU Objective - Vital Signs / Intake & Output Vital Signs (Last 4 hours): Vital Signs Temp Pulse Resp BP Pulse Ox 07/29/16 10:39 84 103/71 07/29/16 08:00 98.6 F 84 15 101/75 100 Intake and Output (Last 8hrs): Intake & Output 07/28/16 07/29/16 07/29/16 22:59 06:59 14:59 Intake Total 1264 490 Balance 1264 490 Intake: IV 1164 390 Intake, Piggyback 100 100 Other: # Bowel Movements 1 - Physical Exam Head: Positive for: Atraumatic, Normocephalic Pupils: Positive for: Non-Reactive Extroacular Muscles: Negative for: EOMI Conjunctiva: Negative for: Injected, Icteric Mouth: Positive for: Dry Neck: Positive for: Other (Right IJ HD catheter site clean, dry, with no signs of erythema.) Respiratory/Chest: Positive for: Other (Intubated, on mechanical ventilation. B/ L air entry present but decreased at lung bases with scattered crackles b/l.). Negative for: Wheezes Cardiovascular: Positive for: Regular Rate and Rhythm. Negative for: Murmurs Abdomen: Positive for: Normal Bowel Sounds. Negative for: Tenderness, Distention Genitourinary Male: Positive for: Other (Right groin TLC site clean, dry, with no surrounding erythema. ) Upper Extremity: Positive for: Edema (B/L upper extremity edema), Other ( Generalized anasarca) Lower Extremity: Positive for: Edema (3+ b/l LE), Other (Lower extremity YADIRA dressings.) Neurological: Positive for: Other (Unresponsive to verbal or painful stimuli. Pupils fixed. Corneal reflex present with occasional spontaneous blink. Mild gag reflex. Not moving extremities. No puroseful movements.). Negative for: CN II-XII Intact Psychiatric: Negative for: Alert - Medications Active Medications: Active Medications Generic Name Dose Route Start Last Admin Trade Name Freq PRN Reason Stop Dose Admin Acetaminophen 650 mg 07/26/16 03:55 07/28/16 23:38 Tylenol 650mg/20.3ml Solution Ud PO 650 mg Q6 PRN Administration fever Acetaminophen 650 mg 07/29/16 10:45 Tylenol 325mg Tab PO Q6H PRN Pain, moderate (4-7) Allopurinol 100 mg 07/19/16 09:00 07/29/16 10:36 Zyloprim PO 100 mg DAILY MARIA GUADALUPE Administration Artificial Tears 2 drop 07/26/16 16:18 07/29/16 10:32 Artificial Tears OU 2 drop Q6 PRN Administration Dry eyes Ascorbic Acid 1,000 mg 07/23/16 09:00 07/29/16 10:36 Vitamin C 500 Mg Tab PO 1,000 mg DAILY MARIA GUADALUPE Administration Bismuth Subsalicylate 524 mg 07/18/16 20:13 Pepto-Bismol PO Q6H PRN Diarrhea Carvedilol 12.5 mg 07/19/16 09:00 07/29/16 10:39 Coreg PO 12.5 mg BID MARIA GUADALUPE Administration Dextrose 0 ml 07/18/16 20:13 Dextrose 50% Inj IVP STAT PRN Hypoglycemia Protocol Protocol Ezetimibe 10 mg 07/18/16 22:00 07/28/16 21:56 Zetia PO Not Given HS MARIA GUADALUPE Epoetin Jameel 4,000 unit 07/28/16 09:00 07/28/16 09:55 Procrit SC Not Given MWF MARIA GUADLAUPE Ergocalciferol 1 cap 07/18/16 20:13 Drisdol 50,000 Intl Units Cap PO QWK MARIA GUADALUPE Glucagon 0 mg 07/18/16 20:13 Glucagen Diagnostic Kit IM STAT PRN Hypoglycemia Protocol Protocol Heparin Sodium (Porcine) 5,000 units 07/29/16 17:00 Heparin SC Q8 MARIA GUADALUPE Protocol Amiodarone HCl 900 mg/ 518 mls @ 34.53 mls/hr 07/23/16 15:45 Dextrose IVPB .Q15H1M MARIA GUADALUPE Protocol 1 MG/MIN Vancomycin HCl 1 gm/ Sodium 250 mls @ 166.667 mls/hr 07/28/16 09:00 07/28/16 09:04 Chloride IVPB 166.667 mls/hr MWF MARIA GUADALUPE Administration Cefepime HCl 1 gm/ Sodium 100 mls @ 100 mls/hr 07/25/16 12:45 07/29/16 09:07 Chloride IVPB 100 mls/hr DAILY MARIA GUADALUPE Administration Piperacillin Sod/Tazobactam 100 mls @ 100 mls/hr 07/26/16 01:30 07/29/16 08: 57 Sod 2.25 gm/ Sodium Chloride IVPB 100 mls/hr Q8H MARIA GUADALUPE Administration Micafungin Sodium 100 mg/ 100 mls @ 100 mls/hr 07/27/16 13:45 07/29/16 08:27 Sodium Chloride IVPB 100 mls/hr DAILY MARIA GUADALUPE Administration Insulin Detemir 25 units 07/18/16 22:00 07/28/16 21:54 Levemir SC 25 units HS MARIA GUADALUPE Administration Insulin Human Regular 0 units 07/19/16 06:45 07/29/16 08:26 Humulin R SC 4 units ACHS MARIA GUADALUPE Administration Protocol Midodrine 10 mg 07/26/16 20:05 07/29/16 11:05 Proamatine PO 10 mg TID PRN Administration hypotension Midodrine 10 mg 07/29/16 10:45 Proamatine PO DIALW MARIA GUADALUPE Pantoprazole Sodium 40 mg 07/29/16 11:00 07/29/16 11:06 Protonix Susp PO 40 mg DAILY MARIA GUADALUPE Administration Sevelamer Carbonate 0.8 gm 07/19/16 09:00 07/29/16 10:35 Renvela PO 0.8 gm TID MARIA GUADALUPE Administration Sitagliptin Phosphate 25 mg 07/19/16 09:00 07/29/16 10:34 Januvia PO 25 mg DAILY MARIA GUADALUPE Administration Tamsulosin HCl 0.4 mg 07/19/16 09:00 07/29/16 10:33 Flomax PO 0.4 mg DAILY MARIA GUADALUPE Administration Vitamin B Complex/Vit C/Folic Acid 1 tab 07/23/16 09:00 07/29/16 10:34 Nephro-Carlitos PO 1 tab DAILY MARIA GUADALUPE Administration - Patient Studies Lab Studies: Microbiology Studies 07/25/16 04:20 Blood Culture - Preliminary Blood-Venous NO GROWTH AFTER 4 DAYS 07/25/16 15:00 Blood Culture - Preliminary Blood-During Dialysis NO GROWTH AFTER 3 DAYS 07/25/16 12:00 Blood Culture - Preliminary Blood-Thru Central Line NO GROWTH AFTER 3 DAYS Lab Studies 07/29/16 07/29/16 07/29/16 Range/Units 08:36 05:37 04:58 WBC (4.8-10.8) K/uL RBC (4.40-5.90) Mil/uL Hgb (12.0-18.0) g/dL Hct (35.0-51.0) % MCV (80.0-94.0) fl MCH (27.0-31.0) pg MCHC (33.0-37.0) g/dL RDW (11.5-14.5) % Plt Count (130-400) K/uL pCO2 42 (35-45) mm/Hg pO2 232 H (80-100) mm/Hg HCO3 23.7 (21-28) mmol/L ABG pH 7.36 (7.35-7.45) ABG Total CO2 25.0 (22-28) mmol/L ABG O2 Saturation 99.6 H (95-98) % ABG O2 Content 10.9 L (15-23) ML/dL ABG Base Excess -1.6 (-2.0-3.0) mmol/L ABG Hemoglobin 7.5 L (11.7-17.4) g/dL ABG Carboxyhemoglobin 0.6 (0.5-1.5) % POC ABG HHb (Measured) 0.4 (0.0-5.0) % ABG Methemoglobin 1.6 (0.0-3.0) % ABG O2 Capacity 10.9 L (16-24) mL/dL Mason Test Yes A-a O2 Difference 429.0 mm/Hg Hgb O2 Saturation 97.4 (95.0-98.0) % Vent Mode A/c Mechanical Rate 14 FiO2 100.0 % Tidal Volume 500 PEEP 5 Sodium (132-148) mmol/l Potassium (3.6-5.0) MMOL/L Chloride (98-107) mmol/L Carbon Dioxide (22-30) mmol/L Anion Gap (10-20) BUN (9-20) mg/dl Creatinine (0.8-1.5) mg/dL Est GFR ( Amer) Est GFR (Non-Af Amer) POC Glucose (mg/dL) 237 H (65-110) mg/dL Random Glucose (75-110) mg/dL Calcium (8.4-10.2) mg/dL Total Bilirubin (0.2-1.3) mg/dl AST (17-59) U/L ALT (21-72) U/L Alkaline Phosphatase (38-126) U/L Total Protein (6.3-8.2) G/DL Albumin (3.5-5.0) g/dL Globulin (2.2-3.9) gm/dL Albumin/Globulin Ratio (1.0-2.1) Blood Type O POSITIVE Antibody Screen Negative Crossmatch See Detail BBK History Checked Patient has bt 07/29/16 07/29/16 07/28/16 Range/Units 04:20 04:20 21:30 WBC 11.9 H (4.8-10.8) K/uL RBC 2.61 L (4.40-5.90) Mil/uL Hgb 6.9 L (12.0-18.0) g/dL Hct 22.4 L (35.0-51.0) % MCV 85.5 D (80.0-94.0) fl MCH 26.3 L (27.0-31.0) pg MCHC 30.8 L (33.0-37.0) g/dL RDW 19.2 H (11.5-14.5) % Plt Count 212 (130-400) K/uL pCO2 (35-45) mm/Hg pO2 (80-100) mm/Hg HCO3 (21-28) mmol/L ABG pH (7.35-7.45) ABG Total CO2 (22-28) mmol/L ABG O2 Saturation (95-98) % ABG O2 Content (15-23) ML/dL ABG Base Excess (-2.0-3.0) mmol/L ABG Hemoglobin (11.7-17.4) g/dL ABG Carboxyhemoglobin (0.5-1.5) % POC ABG HHb (Measured) (0.0-5.0) % ABG Methemoglobin (0.0-3.0) % ABG O2 Capacity (16-24) mL/dL Mason Test A-a O2 Difference mm/Hg Hgb O2 Saturation (95.0-98.0) % Vent Mode Mechanical Rate FiO2 % Tidal Volume PEEP Sodium 140 (132-148) mmol/l Potassium 5.2 H (3.6-5.0) MMOL/L Chloride 102 (98-107) mmol/L Carbon Dioxide 23 (22-30) mmol/L Anion Gap 20 (10-20) BUN 90 H (9-20) mg/dl Creatinine 6.4 H (0.8-1.5) mg/dL Est GFR ( Amer) 10 Est GFR (Non-Af Amer) 8 POC Glucose (mg/dL) 243 H (65-110) mg/dL Random Glucose 228 H (75-110) mg/dL Calcium 7.7 L (8.4-10.2) mg/dL Total Bilirubin 1.1 (0.2-1.3) mg/dl AST 124 H D (17-59) U/L ALT 49 (21-72) U/L Alkaline Phosphatase 227 H (38-126) U/L Total Protein 7.2 (6.3-8.2) G/DL Albumin 2.8 L (3.5-5.0) g/dL Globulin 4.4 H (2.2-3.9) gm/dL Albumin/Globulin Ratio 0.6 L (1.0-2.1) Blood Type Antibody Screen Crossmatch BBK History Checked 07/28/16 07/28/16 07/28/16 Range/Units 16:03 11:30 07:30 WBC (4.8-10.8) K/uL RBC (4.40-5.90) Mil/uL Hgb (12.0-18.0) g/dL Hct (35.0-51.0) % MCV (80.0-94.0) fl MCH (27.0-31.0) pg MCHC (33.0-37.0) g/dL RDW (11.5-14.5) % Plt Count (130-400) K/uL pCO2 (35-45) mm/Hg pO2 (80-100) mm/Hg HCO3 (21-28) mmol/L ABG pH (7.35-7.45) ABG Total CO2 (22-28) mmol/L ABG O2 Saturation (95-98) % ABG O2 Content (15-23) ML/dL ABG Base Excess (-2.0-3.0) mmol/L ABG Hemoglobin (11.7-17.4) g/dL ABG Carboxyhemoglobin (0.5-1.5) % POC ABG HHb (Measured) (0.0-5.0) % ABG Methemoglobin (0.0-3.0) % ABG O2 Capacity (16-24) mL/dL Mason Test A-a O2 Difference mm/Hg Hgb O2 Saturation (95.0-98.0) % Vent Mode Mechanical Rate FiO2 % Tidal Volume PEEP Sodium (132-148) mmol/l Potassium (3.6-5.0) MMOL/L Chloride (98-107) mmol/L Carbon Dioxide (22-30) mmol/L Anion Gap (10-20) BUN (9-20) mg/dl Creatinine (0.8-1.5) mg/dL Est GFR ( Amer) Est GFR (Non-Af Amer) POC Glucose (mg/dL) 307 H 255 H 209 H (65-110) mg/dL Random Glucose (75-110) mg/dL Calcium (8.4-10.2) mg/dL Total Bilirubin (0.2-1.3) mg/dl AST (17-59) U/L ALT (21-72) U/L Alkaline Phosphatase (38-126) U/L Total Protein (6.3-8.2) G/DL Albumin (3.5-5.0) g/dL Globulin (2.2-3.9) gm/dL Albumin/Globulin Ratio (1.0-2.1) Blood Type Antibody Screen Crossmatch BBK History Checked 07/27/16 07/27/16 07/27/16 Range/Units 22:02 16:03 11:00 WBC (4.8-10.8) K/uL RBC (4.40-5.90) Mil/uL Hgb (12.0-18.0) g/dL Hct (35.0-51.0) % MCV (80.0-94.0) fl MCH (27.0-31.0) pg MCHC (33.0-37.0) g/dL RDW (11.5-14.5) % Plt Count (130-400) K/uL pCO2 (35-45) mm/Hg pO2 (80-100) mm/Hg HCO3 (21-28) mmol/L ABG pH (7.35-7.45) ABG Total CO2 (22-28) mmol/L ABG O2 Saturation (95-98) % ABG O2 Content (15-23) ML/dL ABG Base Excess (-2.0-3.0) mmol/L ABG Hemoglobin (11.7-17.4) g/dL ABG Carboxyhemoglobin (0.5-1.5) % POC ABG HHb (Measured) (0.0-5.0) % ABG Methemoglobin (0.0-3.0) % ABG O2 Capacity (16-24) mL/dL Mason Test A-a O2 Difference mm/Hg Hgb O2 Saturation (95.0-98.0) % Vent Mode Mechanical Rate FiO2 % Tidal Volume PEEP Sodium (132-148) mmol/l Potassium (3.6-5.0) MMOL/L Chloride (98-107) mmol/L Carbon Dioxide (22-30) mmol/L Anion Gap (10-20) BUN (9-20) mg/dl Creatinine (0.8-1.5) mg/dL Est GFR ( Amer) Est GFR (Non-Af Amer) POC Glucose (mg/dL) 244 H 210 H 168 H (65-110) mg/dL Random Glucose (75-110) mg/dL Calcium (8.4-10.2) mg/dL Total Bilirubin (0.2-1.3) mg/dl AST (17-59) U/L ALT (21-72) U/L Alkaline Phosphatase (38-126) U/L Total Protein (6.3-8.2) G/DL Albumin (3.5-5.0) g/dL Globulin (2.2-3.9) gm/dL Albumin/Globulin Ratio (1.0-2.1) Blood Type Antibody Screen Crossmatch BBK History Checked 07/27/16 07/26/16 07/26/16 Range/Units 07:01 21:45 16:25 WBC (4.8-10.8) K/uL RBC (4.40-5.90) Mil/uL Hgb (12.0-18.0) g/dL Hct (35.0-51.0) % MCV (80.0-94.0) fl MCH (27.0-31.0) pg MCHC (33.0-37.0) g/dL RDW (11.5-14.5) % Plt Count (130-400) K/uL pCO2 (35-45) mm/Hg pO2 (80-100) mm/Hg HCO3 (21-28) mmol/L ABG pH (7.35-7.45) ABG Total CO2 (22-28) mmol/L ABG O2 Saturation (95-98) % ABG O2 Content (15-23) ML/dL ABG Base Excess (-2.0-3.0) mmol/L ABG Hemoglobin (11.7-17.4) g/dL ABG Carboxyhemoglobin (0.5-1.5) % POC ABG HHb (Measured) (0.0-5.0) % ABG Methemoglobin (0.0-3.0) % ABG O2 Capacity (16-24) mL/dL Mason Test A-a O2 Difference mm/Hg Hgb O2 Saturation (95.0-98.0) % Vent Mode Mechanical Rate FiO2 % Tidal Volume PEEP Sodium (132-148) mmol/l Potassium (3.6-5.0) MMOL/L Chloride (98-107) mmol/L Carbon Dioxide (22-30) mmol/L Anion Gap (10-20) BUN (9-20) mg/dl Creatinine (0.8-1.5) mg/dL Est GFR ( Amer) Est GFR (Non-Af Amer) POC Glucose (mg/dL) 209 H 258 H 197 H (65-110) mg/dL Random Glucose (75-110) mg/dL Calcium (8.4-10.2) mg/dL Total Bilirubin (0.2-1.3) mg/dl AST (17-59) U/L ALT (21-72) U/L Alkaline Phosphatase (38-126) U/L Total Protein (6.3-8.2) G/DL Albumin (3.5-5.0) g/dL Globulin (2.2-3.9) gm/dL Albumin/Globulin Ratio (1.0-2.1) Blood Type Antibody Screen Crossmatch BBK History Checked 07/26/16 07/26/16 07/25/16 Range/Units 10:59 05:14 21:49 WBC (4.8-10.8) K/uL RBC (4.40-5.90) Mil/uL Hgb (12.0-18.0) g/dL Hct (35.0-51.0) % MCV (80.0-94.0) fl MCH (27.0-31.0) pg MCHC (33.0-37.0) g/dL RDW (11.5-14.5) % Plt Count (130-400) K/uL pCO2 (35-45) mm/Hg pO2 (80-100) mm/Hg HCO3 (21-28) mmol/L ABG pH (7.35-7.45) ABG Total CO2 (22-28) mmol/L ABG O2 Saturation (95-98) % ABG O2 Content (15-23) ML/dL ABG Base Excess (-2.0-3.0) mmol/L ABG Hemoglobin (11.7-17.4) g/dL ABG Carboxyhemoglobin (0.5-1.5) % POC ABG HHb (Measured) (0.0-5.0) % ABG Methemoglobin (0.0-3.0) % ABG O2 Capacity (16-24) mL/dL Mason Test A-a O2 Difference mm/Hg Hgb O2 Saturation (95.0-98.0) % Vent Mode Mechanical Rate FiO2 % Tidal Volume PEEP Sodium (132-148) mmol/l Potassium (3.6-5.0) MMOL/L Chloride (98-107) mmol/L Carbon Dioxide (22-30) mmol/L Anion Gap (10-20) BUN (9-20) mg/dl Creatinine (0.8-1.5) mg/dL Est GFR ( Amer) Est GFR (Non-Af Amer) POC Glucose (mg/dL) 229 H 362 H 279 H (65-110) mg/dL Random Glucose (75-110) mg/dL Calcium (8.4-10.2) mg/dL Total Bilirubin (0.2-1.3) mg/dl AST (17-59) U/L ALT (21-72) U/L Alkaline Phosphatase (38-126) U/L Total Protein (6.3-8.2) G/DL Albumin (3.5-5.0) g/dL Globulin (2.2-3.9) gm/dL Albumin/Globulin Ratio (1.0-2.1) Blood Type Antibody Screen Crossmatch BBK History Checked 07/25/16 Range/Units 16:00 WBC (4.8-10.8) K/uL RBC (4.40-5.90) Mil/uL Hgb (12.0-18.0) g/dL Hct (35.0-51.0) % MCV (80.0-94.0) fl MCH (27.0-31.0) pg MCHC (33.0-37.0) g/dL RDW (11.5-14.5) % Plt Count (130-400) K/uL pCO2 (35-45) mm/Hg pO2 (80-100) mm/Hg HCO3 (21-28) mmol/L ABG pH (7.35-7.45) ABG Total CO2 (22-28) mmol/L ABG O2 Saturation (95-98) % ABG O2 Content (15-23) ML/dL ABG Base Excess (-2.0-3.0) mmol/L ABG Hemoglobin (11.7-17.4) g/dL ABG Carboxyhemoglobin (0.5-1.5) % POC ABG HHb (Measured) (0.0-5.0) % ABG Methemoglobin (0.0-3.0) % ABG O2 Capacity (16-24) mL/dL Mason Test A-a O2 Difference mm/Hg Hgb O2 Saturation (95.0-98.0) % Vent Mode Mechanical Rate FiO2 % Tidal Volume PEEP Sodium (132-148) mmol/l Potassium (3.6-5.0) MMOL/L Chloride (98-107) mmol/L Carbon Dioxide (22-30) mmol/L Anion Gap (10-20) BUN (9-20) mg/dl Creatinine (0.8-1.5) mg/dL Est GFR ( Amer) Est GFR (Non-Af Amer) POC Glucose (mg/dL) 228 H (65-110) mg/dL Random Glucose (75-110) mg/dL Calcium (8.4-10.2) mg/dL Total Bilirubin (0.2-1.3) mg/dl AST (17-59) U/L ALT (21-72) U/L Alkaline Phosphatase (38-126) U/L Total Protein (6.3-8.2) G/DL Albumin (3.5-5.0) g/dL Globulin (2.2-3.9) gm/dL Albumin/Globulin Ratio (1.0-2.1) Blood Type Antibody Screen Crossmatch BBK History Checked Laboratory Results - last 24 hr 07/25/16 07/25/16 07/26/16 16:00 21:49 05:14 WBC RBC Hgb Hct MCV MCH MCHC RDW Plt Count pCO2 pO2 HCO3 ABG pH ABG Total CO2 ABG O2 Saturation ABG O2 Content ABG Base Excess ABG Hemoglobin ABG Carboxyhemoglobin POC ABG HHb (Measured) ABG Methemoglobin ABG O2 Capacity Mason Test A-a O2 Difference Hgb O2 Saturation Vent Mode Mechanical Rate FiO2 Tidal Volume PEEP Sodium Potassium Chloride Carbon Dioxide Anion Gap BUN Creatinine Est GFR ( Amer) Est GFR (Non-Af Amer) POC Glucose (mg/dL) 228 H 279 H 362 H Random Glucose Calcium Total Bilirubin AST ALT Alkaline Phosphatase Total Protein Albumin Globulin Albumin/Globulin Ratio Blood Type Antibody Screen Crossmatch BBK History Checked 07/26/16 07/26/16 07/26/16 10:59 16:25 21:45 WBC RBC Hgb Hct MCV MCH MCHC RDW Plt Count pCO2 pO2 HCO3 ABG pH ABG Total CO2 ABG O2 Saturation ABG O2 Content ABG Base Excess ABG Hemoglobin ABG Carboxyhemoglobin POC ABG HHb (Measured) ABG Methemoglobin ABG O2 Capacity Mason Test A-a O2 Difference Hgb O2 Saturation Vent Mode Mechanical Rate FiO2 Tidal Volume PEEP Sodium Potassium Chloride Carbon Dioxide Anion Gap BUN Creatinine Est GFR ( Amer) Est GFR (Non-Af Amer) POC Glucose (mg/dL) 229 H 197 H 258 H Random Glucose Calcium Total Bilirubin AST ALT Alkaline Phosphatase Total Protein Albumin Globulin Albumin/Globulin Ratio Blood Type Antibody Screen Crossmatch BBK History Checked 07/27/16 07/27/1607/27/17 07:01 11:00 16:03 WBC RBC Hgb Hct MCV MCH MCHC RDW Plt Count pCO2 pO2 HCO3 ABG pH ABG Total CO2 ABG O2 Saturation ABG O2 Content ABG Base Excess ABG Hemoglobin ABG Carboxyhemoglobin POC ABG HHb (Measured) ABG Methemoglobin ABG O2 Capacity Mason Test A-a O2 Difference Hgb O2 Saturation Vent Mode Mechanical Rate FiO2 Tidal Volume PEEP Sodium Potassium Chloride Carbon Dioxide Anion Gap BUN Creatinine Est GFR ( Amer) Est GFR (Non-Af Amer) POC Glucose (mg/dL) 209 H 168 H 210 H Random Glucose Calcium Total Bilirubin AST ALT Alkaline Phosphatase Total Protein Albumin Globulin Albumin/Globulin Ratio Blood Type Antibody Screen Crossmatch BBK History Checked 07/27/16 07/28/16 07/28/16 22:02 07:30 11:30 WBC RBC Hgb Hct MCV MCH MCHC RDW Plt Count pCO2 pO2 HCO3 ABG pH ABG Total CO2 ABG O2 Saturation ABG O2 Content ABG Base Excess ABG Hemoglobin ABG Carboxyhemoglobin POC ABG HHb (Measured) ABG Methemoglobin ABG O2 Capacity Mason Test A-a O2 Difference Hgb O2 Saturation Vent Mode Mechanical Rate FiO2 Tidal Volume PEEP Sodium Potassium Chloride Carbon Dioxide Anion Gap BUN Creatinine Est GFR ( Amer) Est GFR (Non-Af Amer) POC Glucose (mg/dL) 244 H 209 H 255 H Random Glucose Calcium Total Bilirubin AST ALT Alkaline Phosphatase Total Protein Albumin Globulin Albumin/Globulin Ratio Blood Type Antibody Screen Crossmatch BBK History Checked 07/28/16 07/28/16 07/29/16 16:03 21:30 04:20 WBC 11.9 H RBC 2.61 L Hgb 6.9 L Hct 22.4 L MCV 85.5 D MCH 26.3 L MCHC 30.8 L RDW 19.2 H Plt Count 212 pCO2 pO2 HCO3 ABG pH ABG Total CO2 ABG O2 Saturation ABG O2 Content ABG Base Excess ABG Hemoglobin ABG Carboxyhemoglobin POC ABG HHb (Measured) ABG Methemoglobin ABG O2 Capacity Mason Test A-a O2 Difference Hgb O2 Saturation Vent Mode Mechanical Rate FiO2 Tidal Volume PEEP Sodium Potassium Chloride Carbon Dioxide Anion Gap BUN Creatinine Est GFR ( Amer) Est GFR (Non-Af Amer) POC Glucose (mg/dL) 307 H 243 H Random Glucose Calcium Total Bilirubin AST ALT Alkaline Phosphatase Total Protein Albumin Globulin Albumin/Globulin Ratio Blood Type Antibody Screen Crossmatch BBK History Checked 07/29/16 07/29/16 07/29/16 04:20 04:58 05:37 WBC RBC Hgb Hct MCV MCH MCHC RDW Plt Count pCO2 42 pO2 232 H HCO3 23.7 ABG pH 7.36 ABG Total CO2 25.0 ABG O2 Saturation 99.6 H ABG O2 Content 10.9 L ABG Base Excess -1.6 ABG Hemoglobin 7.5 L ABG Carboxyhemoglobin 0.6 POC ABG HHb (Measured) 0.4 ABG Methemoglobin 1.6 ABG O2 Capacity 10.9 L Mason Test Yes A-a O2 Difference 429.0 Hgb O2 Saturation 97.4 Vent Mode A/c Mechanical Rate 14 FiO2 100.0 Tidal Volume 500 PEEP 5 Sodium 140 Potassium 5.2 H Chloride 102 Carbon Dioxide 23 Anion Gap 20 BUN 90 H Creatinine 6.4 H Est GFR ( Amer) 10 Est GFR (Non-Af Amer) 8 POC Glucose (mg/dL) 237 H Random Glucose 228 H Calcium 7.7 L Total Bilirubin 1.1 AST 124 H D ALT 49 Alkaline Phosphatase 227 H Total Protein 7.2 Albumin 2.8 L Globulin 4.4 H Albumin/Globulin Ratio 0.6 L Blood Type Antibody Screen Crossmatch BBK History Checked 07/29/16 08:36 WBC RBC Hgb Hct MCV MCH MCHC RDW Plt Count pCO2 pO2 HCO3 ABG pH ABG Total CO2 ABG O2 Saturation ABG O2 Content ABG Base Excess ABG Hemoglobin ABG Carboxyhemoglobin POC ABG HHb (Measured) ABG Methemoglobin ABG O2 Capacity Mason Test A-a O2 Difference Hgb O2 Saturation Vent Mode Mechanical Rate FiO2 Tidal Volume PEEP Sodium Potassium Chloride Carbon Dioxide Anion Gap BUN Creatinine Est GFR ( Amer) Est GFR (Non-Af Amer) POC Glucose (mg/dL) Random Glucose Calcium Total Bilirubin AST ALT Alkaline Phosphatase Total Protein Albumin Globulin Albumin/Globulin Ratio Blood Type O POSITIVE Antibody Screen Negative Crossmatch See Detail BBK History Checked Patient has bt Fingerstick Blood Sugar Results: 237 Review of Systems - Review of Systems Systems not reviewed;Unavailable: Intubated Assessment/Plan - Assessment and Plan (Free Text) Assessment: 80 y/o with PMH including HTN, DM2, Hyperlipidemia, Morbid obesity, CKD Stage IV presented to [facility] for 2 weeks of progressive abdominal pain, lower extremity erythema and generalized malaise. He was subsequently admitted for lower extremity cellulitis, possible cholecystitis and acute on chronic CKD associated with multiple electrolyte abnormalities. During admission, patient had signs of lethargy and was sent for CT Head and Chest, during which an OFFICE SECRETARY was called. OFFICE SECRETARY converted to code blue for cardiac/respiratory arrest. Patient was coded for 10 minutes and was intubated, with return of spontaneous circulation. Patient was then transferred to ICU on 07/14/16. Since then, patient has been intubated, unresponsive and septic. 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 He again had a code blue called on 07/28/16 and was resuscitated with epinephrine and atropine. Current ICU day 16. Plan: Anoxic Brain Injury -Secondary to cardiac arrest for over 10 minutes with hypoxemia on 07/14/16 and again on 07/28/16 -Absent pupillary response. Corneal reflex present. Dolls eyes negative. Gag reflex absent however carinal reflex can be elicited. 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 -Patient intubated on 07/14/16 due to cardiac/respiratory arrest -Currently on mechanical ventilation, day 16 -Current Vent settings: 14/500/5/80% -Patient remains breathing over vent, tolerating well with O2 sat of 100% -Despite stable spontaneous breathing pattern, patient not a good candidate for extubation due to inability to protect airway. -If family wishes to continue full code status, will consider early tracheostomy and PICC moving forward Septic shock, with Strep Anginosus Bacteremia -Etiology secondary to GI vs Aspiration pneumonia -Tmax 24 hrs: 100.6F, WBC: 11.9 -Blood culture from 07/09 detected strep anginosus sensitive to Vancomycin -Repeat venous blood culture obtained on 07/25 during febrile episode reveals no growth after 4 days -Blood cultures obtained from IJ during dialysis and femoral line on 07/25 also reveal no growth after 3 days -Has required phenylephrine pressor earlier in admission however is currently off pressors -Currently on empiric abx: Vancomycin 1gm IV Q72h (Since 07/13) and Zosyn 2.25 gm IV Q8h (Started 07/11, day 19) Cefepime 1gm IV daily(Started 07/25, day 5) -Yeast species detected on tracheal aspirate. Micafungin started on 07/27, current day 3 Acute on Chronic Kidney Failure -Has been following with nephrology, Dr Morse as outpatient -BUN/Cr: 90/6.4 -Started on HD during admission, which patient has been receiving on MWF schedule. Nephro recently added additional dialysis for Saturdays -Dialysis postponed yesterday. Will receive dialysis today. Paroxysmal Atrial Fibrillation -Has had several episodes of afib during dialysis which resolved with amiodarone. -Rate controlled. Sinus rhythm today. Will monitor. Feeds -Nepro via OGT DVT Prophylaxis -Heparin 5,000units SC Q8H Code Status -Full code <Shashank Means - Last Filed: 07/29/16 14:29> CCU Objective - Vital Signs / Intake & Output Vital Signs (Last 4 hours): Vital Signs Temp Pulse Resp BP Pulse Ox 07/29/16 12:05 98.5 F 79 18 94/61 L 100 07/29/16 10:39 84 103/71 Intake and Output (Last 8hrs): Intake & Output 07/28/16 07/29/16 07/29/16 22:59 06:59 14:59 Intake Total 1264 490 Balance 1264 490 Intake: IV 1164 390 Intake, Piggyback 100 100 Other: # Bowel Movements 1 - Medications Active Medications: Active Medications Generic Name Dose Route Start Last Admin Trade Name Freq PRN Reason Stop Dose Admin Acetaminophen 650 mg 07/26/16 03:55 07/28/16 23:38 Tylenol 650mg/20.3ml Solution Ud PO 650 mg Q6 PRN Administration fever Acetaminophen 650 mg 07/29/16 10:45 Tylenol 325mg Tab PO Q6H PRN Pain, moderate (4-7) Allopurinol 100 mg 07/19/16 09:00 07/29/16 10:36 Zyloprim PO 100 mg DAILY MARIA GUADALUPE Administration Artificial Tears 2 drop 07/26/16 16:18 07/29/16 10:32 Artificial Tears OU 2 drop Q6 PRN Administration Dry eyes Ascorbic Acid 1,000 mg 07/23/16 09:00 07/29/16 10:36 Vitamin C 500 Mg Tab PO 1,000 mg DAILY MARIA GUADALUPE Administration Bismuth Subsalicylate 524 mg 07/18/16 20:13 Pepto-Bismol PO Q6H PRN Diarrhea Carvedilol 12.5 mg 07/19/16 09:00 07/29/16 10:39 Coreg PO 12.5 mg BID MARIA GUADALUPE Administration Dextrose 0 ml 07/18/16 20:13 Dextrose 50% Inj IVP STAT PRN Hypoglycemia Protocol Protocol Ezetimibe 10 mg 07/18/16 22:00 07/28/16 21:56 Zetia PO Not Given HS MARIA GUADALUPE Epoetin Jameel 4,000 unit 07/28/16 09:00 07/28/16 09:55 Procrit SC Not Given MWF [facility] Ergocalciferol 1 cap 07/18/16 20:13 Drisdol 50,000 Intl Units Cap PO QWK MARIA GUADALUPE Glucagon 0 mg 07/18/16 20:13 Glucagen Diagnostic Kit IM STAT PRN Hypoglycemia Protocol Protocol Heparin Sodium (Porcine) 5,000 units 07/29/16 17:00 Heparin SC Q8 [facility]IA GUADALUPE Protocol Amiodarone HCl 900 mg/ 518 mls @ 34.53 mls/hr 07/23/16 15:45 Dextrose IVPB .Q15H1M MARIA GUADALUPE Protocol 1 MG/MIN Vancomycin HCl 1 gm/ Sodium 250 mls @ 166.667 mls/hr 07/28/16 09:00 07/28/16 09:04 Chloride IVPB 166.667 mls/hr MWF [facility] GUADALU[facility] Administration Cefepime HCl 1 gm/ Sodium 100 mls @ 100 mls/hr 07/25/16 12:45 07/29/16 09:07 Chloride IVPB 100 mls/hr DAILY [facility] GUADALU[facility] Administration Piperacillin Sod/Tazobactam 100 mls @ 100 mls/hr 07/26/16 01:30 07/29/16 08: 57 Sod 2.25 gm/ Sodium Chloride IVPB 100 mls/hr Q8H [facility] GUADALU[facility] Administration Micafungin Sodium 100 mg/ 100 mls @ 100 mls/hr 07/27/16 13:45 07/29/16 08:27 Sodium Chloride IVPB 100 mls/hr DAILY [facility] GU[facility]ALU[facility] Administration Norepinephrine Bitartrate 8 mg 258 mls @ 24.18 mls/hr 07/29/16 12:14 13:00 / Dextrose IV 07/29/16 22:54 12.5 mcg/min .[id number] ONE 24.18 mls/hr Protocol Administration 12.5 MCG/MIN Insulin Detemir 25 units 07/18/16 22:00 07/28/16 21:54 Levemir SC 25 units HS MARIA GUADALU[facility] Administration Insulin Human Regular 0 units 07/19/16 06:45 07/29/16 13:48 Humulin R SC 2 units ACHS MARIA GUADALUPE Administration Protocol Midodrine 10 mg 07/26/16 20:05 07/29/16 11:05 Proamatine PO 10 mg TID PRN Administration hypotension Midodrine 10 mg 07/29/16 10:45 Proamatine PO DIALW [facility]IA GUADALUPE Pantoprazole Sodium 40 mg 07/29/16 11:00 07/29/16 11:06 Protonix Susp PO 40 mg DAILY MARIA GUADALUPE Administration Sevelamer Carbonate 0.8 gm 07/19/16 09:00 07/29/16 13:50 Renvela PO 0.8 gm TID [facility]IA GUADALU[facility] Administration Sitagliptin Phosphate 25 mg 07/19/16 09:00 07/29/16 10:34 Januvia PO 25 mg DAILY MARIA GAUDALUPE Administration Tamsulosin HCl 0.4 mg 07/19/16 09:00 07/29/16 10:33 Flomax PO 0.4 mg DAILY [facility] GUADALU[facility] Administration Vitamin B Complex/Vit C/Folic Acid 1 tab 07/23/16 09:00 07/29/16 10:34 Nephro-Carlitos PO 1 tab DAILY MARIA GUADALUPE Administration - Patient Studies Lab Studies: Microbiology Studies 07/25/16 04:20 Blood Culture - Preliminary Blood-Venous NO GROWTH AFTER 4 DAYS 07/25/16 15:00 Blood Culture - Preliminary Blood-During Dialysis NO GROWTH AFTER 3 DAYS 07/25/16 12:00 Blood Culture - Preliminary Blood-Thru Central Line NO GROWTH AFTER 3 DAYS Lab Studies 07/29/16 07/29/16 07/29/16 Range/Units 11:43 08:36 05:37 WBC (4.8-10.8) K/uL RBC (4.40-5.90) Mil/uL Hgb (12.0-18.0) g/dL Hct (35.0-51.0) % MCV (80.0-94.0) fl MCH (27.0-31.0) pg MCHC (33.0-37.0) g/dL RDW (11.5-14.5) % Plt Count (130-400) K/uL pCO2 (35-45) mm/Hg pO2 (80-100) mm/Hg HCO3 (21-28) mmol/L ABG pH (7.35-7.45) ABG Total CO2 (22-28) mmol/L ABG O2 Saturation (95-98) % ABG O2 Content (15-23) ML/dL ABG Base Excess (-2.0-3.0) mmol/L ABG Hemoglobin (11.7-17.4) g/dL ABG Carboxyhemoglobin (0.5-1.5) % POC ABG HHb (Measured) (0.0-5.0) % ABG Methemoglobin (0.0-3.0) % ABG O2 Capacity (16-24) mL/dL Mason Test A-a O2 Difference mm/Hg Hgb O2 Saturation (95.0-98.0) % Vent Mode Mechanical Rate FiO2 % Tidal Volume PEEP Sodium (132-148) mmol/l Potassium (3.6-5.0) MMOL/L Chloride (98-107) mmol/L Carbon Dioxide (22-30) mmol/L Anion Gap (10-20) BUN (9-20) mg/dl Creatinine (0.8-1.5) mg/dL Est GFR ( Amer) Est GFR (Non-Af Amer) POC Glucose (mg/dL) 180 H 237 H (65-110) mg/dL Random Glucose (75-110) mg/dL Calcium (8.4-10.2) mg/dL Total Bilirubin (0.2-1.3) mg/dl AST (17-59) U/L ALT (21-72) U/L Alkaline Phosphatase (38-126) U/L Total Protein (6.3-8.2) G/DL Albumin (3.5-5.0) g/dL Globulin (2.2-3.9) gm/dL Albumin/Globulin Ratio (1.0-2.1) Blood Type O POSITIVE Antibody Screen Negative Crossmatch See Detail BBK History Checked Patient has bt 07/29/16 07/29/16 07/29/16 Range/Units 04:58 04:20 04:20 WBC 11.9 H (4.8-10.8) K/uL RBC 2.61 L (4.40-5.90) Mil/uL Hgb 6.9 L (12.0-18.0) g/dL Hct 22.4 L (35.0-51.0) % MCV 85.5 D (80.0-94.0) fl MCH 26.3 L (27.0-31.0) pg MCHC 30.8 L (33.0-37.0) g/dL RDW 19.2 H (11.5-14.5) % Plt Count 212 (130-400) K/uL pCO2 42 (35-45) mm/Hg pO2 232 H (80-100) mm/Hg HCO3 23.7 (21-28) mmol/L ABG pH 7.36 (7.35-7.45) ABG Total CO2 25.0 (22-28) mmol/L ABG O2 Saturation 99.6 H (95-98) % ABG O2 Content 10.9 L (15-23) ML/dL ABG Base Excess -1.6 (-2.0-3.0) mmol/L ABG Hemoglobin 7.5 L (11.7-17.4) g/dL ABG Carboxyhemoglobin 0.6 (0.5-1.5) % POC ABG HHb (Measured) 0.4 (0.0-5.0) % ABG Methemoglobin 1.6 (0.0-3.0) % ABG O2 Capacity 10.9 L (16-24) mL/dL Mason Test Yes A-a O2 Difference 429.0 mm/Hg Hgb O2 Saturation 97.4 (95.0-98.0) % Vent Mode A/c Mechanical Rate 14 FiO2 100.0 % Tidal Volume 500 PEEP 5 Sodium 140 (132-148) mmol/l Potassium 5.2 H (3.6-5.0) MMOL/L Chloride 102 (98-107) mmol/L Carbon Dioxide 23 (22-30) mmol/L Anion Gap 20 (10-20) BUN 90 H (9-20) mg/dl Creatinine 6.4 H (0.8-1.5) mg/dL Est GFR ( Amer) 10 Est GFR (Non-Af Amer) 8 POC Glucose (mg/dL) (65-110) mg/dL Random Glucose 228 H (75-110) mg/dL Calcium 7.7 L (8.4-10.2) mg/dL Total Bilirubin 1.1 (0.2-1.3) mg/dl AST 124 H D (17-59) U/L ALT 49 (21-72) U/L Alkaline Phosphatase 227 H (38-126) U/L Total Protein 7.2 (6.3-8.2) G/DL Albumin 2.8 L (3.5-5.0) g/dL Globulin 4.4 H (2.2-3.9) gm/dL Albumin/Globulin Ratio 0.6 L (1.0-2.1) Blood Type Antibody Screen Crossmatch BBK History Checked 07/28/16 07/28/16 Range/Units 21:30 16:03 WBC (4.8-10.8) K/uL RBC (4.40-5.90) Mil/uL Hgb (12.0-18.0) g/dL Hct (35.0-51.0) % MCV (80.0-94.0) fl MCH (27.0-31.0) pg MCHC (33.0-37.0) g/dL RDW (11.5-14.5) % Plt Count (130-400) K/uL pCO2 (35-45) mm/Hg pO2 (80-100) mm/Hg HCO3 (21-28) mmol/L ABG pH (7.35-7.45) ABG Total CO2 (22-28) mmol/L ABG O2 Saturation (95-98) % ABG O2 Content (15-23) ML/dL ABG Base Excess (-2.0-3.0) mmol/L ABG Hemoglobin (11.7-17.4) g/dL ABG Carboxyhemoglobin (0.5-1.5) % POC ABG HHb (Measured) (0.0-5.0) % ABG Methemoglobin (0.0-3.0) % ABG O2 Capacity (16-24) mL/dL Mason Test A-a O2 Difference mm/Hg Hgb O2 Saturation (95.0-98.0) % Vent Mode Mechanical Rate FiO2 % Tidal Volume PEEP Sodium (132-148) mmol/l Potassium (3.6-5.0) MMOL/L Chloride (98-107) mmol/L Carbon Dioxide (22-30) mmol/L Anion Gap (10-20) BUN (9-20) mg/dl Creatinine (0.8-1.5) mg/dL Est GFR ( Amer) Est GFR (Non-Af Amer) POC Glucose (mg/dL) 243 H 307 H (65-110) mg/dL Random Glucose (75-110) mg/dL Calcium (8.4-10.2) mg/dL Total Bilirubin (0.2-1.3) mg/dl AST (17-59) U/L ALT (21-72) U/L Alkaline Phosphatase (38-126) U/L Total Protein (6.3-8.2) G/DL Albumin (3.5-5.0) g/dL Globulin (2.2-3.9) gm/dL Albumin/Globulin Ratio (1.0-2.1) Blood Type Antibody Screen Crossmatch BBK History Checked Laboratory Results - last 24 hr 07/28/16 07/28/16 07/29/16 16:03 21:30 04:20 WBC 11.9 H RBC 2.61 L Hgb 6.9 L Hct 22.4 L MCV 85.5 D MCH 26.3 L MCHC 30.8 L RDW 19.2 H Plt Count 212 pCO2 pO2 HCO3 ABG pH ABG Total CO2 ABG O2 Saturation ABG O2 Content ABG Base Excess ABG Hemoglobin ABG Carboxyhemoglobin POC ABG HHb (Measured) ABG Methemoglobin ABG O2 Capacity Mason Test A-a O2 Difference Hgb O2 Saturation Vent Mode Mechanical Rate FiO2 Tidal Volume PEEP Sodium Potassium Chloride Carbon Dioxide Anion Gap BUN Creatinine Est GFR ( Amer) Est GFR (Non-Af Amer) POC Glucose (mg/dL) 307 H 243 H Random Glucose Calcium Total Bilirubin AST ALT Alkaline Phosphatase Total Protein Albumin Globulin Albumin/Globulin Ratio Blood Type Antibody Screen Crossmatch BBK History Checked 05/23/17 05/23/17 05/23/17 04:20 04:58 05:37 WBC RBC Hgb Hct MCV MCH MCHC RDW Plt Count pCO2 42 pO2 232 H HCO3 23.7 ABG pH 7.36 ABG Total CO2 25.0 ABG O2 Saturation 99.6 H ABG O2 Content 10.9 L ABG Base Excess -1.6 ABG Hemoglobin 7.5 L ABG Carboxyhemoglobin 0.6 POC ABG HHb (Measured) 0.4 ABG Methemoglobin 1.6 ABG O2 Capacity 10.9 L Mason Test Yes A-a O2 Difference 429.0 Hgb O2 Saturation 97.4 Vent Mode A/c Mechanical Rate 14 FiO2 100.0 Tidal Volume 500 PEEP 5 Sodium 140 Potassium 5.2 H Chloride 102 Carbon Dioxide 23 Anion Gap 20 BUN 90 H Creatinine 6.4 H Est GFR ( Amer) 10 Est GFR (Non-Af Amer) 8 POC Glucose (mg/dL) 237 H Random Glucose 228 H Calcium 7.7 L Total Bilirubin 1.1 AST 124 H D ALT 49 Alkaline Phosphatase 227 H Total Protein 7.2 Albumin 2.8 L Globulin 4.4 H Albumin/Globulin Ratio 0.6 L Blood Type Antibody Screen Crossmatch BBK History Checked 07/29/16 07/29/16 08:36 11:43 WBC RBC Hgb Hct MCV MCH MCHC RDW Plt Count pCO2 pO2 HCO3 ABG pH ABG Total CO2 ABG O2 Saturation ABG O2 Content ABG Base Excess ABG Hemoglobin ABG Carboxyhemoglobin POC ABG HHb (Measured) ABG Methemoglobin ABG O2 Capacity Mason Test A-a O2 Difference Hgb O2 Saturation Vent Mode Mechanical Rate FiO2 Tidal Volume PEEP Sodium Potassium Chloride Carbon Dioxide Anion Gap BUN Creatinine Est GFR ( Amer) Est GFR (Non-Af Amer) POC Glucose (mg/dL) 180 H Random Glucose Calcium Total Bilirubin AST ALT Alkaline Phosphatase Total Protein Albumin Globulin Albumin/Globulin Ratio Blood Type O POSITIVE Antibody Screen Negative Crossmatch See Detail BBK History Checked Patient has bt Assessment/Plan (1) Cardiac arrest Current Visit: Yes Status: Acute Comment: No neurological improvements Remains intubated, not breathing over the vent Unresponsive to painful stimuli EEG Neurology evaluation appreciated Attending/Attestation - Attestation I have personally seen and examined this patient.: Yes I have fully participated in the care of the patient.: Yes I have reviewed all pertinent clinical information: Yes Notes (Text): 07/29/16 13:51 I have seen and examined the patient. Medical records, lab studies, and imaging were reviewed by me and a management plan was formulated on multidisciplinary rounds with resident Dr. Garcia. I agree with their above documented assessment and plan. Family rescinded DNR. Having long conversations with children, brother and sister, who seem to understand the patient's poor prognosis. The mother is very hesitant to make any decisions currently. If she wants to continue care, then the patient will need a trach/PEG for customs consultant care. Critical Care Time 35 minutes. Multi-disciplinary rounds were performed with house staff, nursing, speech therapy, respiratory therapy, pharmacy and nutrition with integrated input from the primary team/attending and other consulting services. The documented time is cumulative and includes review of patient data/exams/labs/chart review and examination of the patient on rounds and throughout the day; time is exclusive of any procedures or teaching time.
--- NOTE | 2016-07-29 14:46 | RAD ---
HISTORY: Intubated. COMPARISON: Comparison made with prior chest radiograph dated 07/28/2016. FINDINGS: LUNGS: In situ ETT, tip of which lies approximately 2.6 cm above chandrakant. Right IJ central line with the tip apparently in the SVC. Tubing overlies the left janice thorax felt to be extrinsic to the patient. Clinic correlation recommended Diffuse bilateral infiltrates likely representing pulmonary edema however underlying pneumonia not excluded. Suspected bilateral effusions right greater than left. PLEURA: No significant pleural effusion identified, no pneumothorax apparent. CARDIOVASCULAR: Normal. OSSEOUS STRUCTURES: No significant abnormalities. VISUALIZED UPPER ABDOMEN: Normal. OTHER FINDINGS: None. IMPRESSION: Support lines and tubes as above. Diffuse bilateral infiltrates likely represent pulmonary edema however underlying pneumonia not excluded. Suspect bilateral effusions right larger than left.
[2016-07-29] MEDS ORDERED: Chlorhexidine Gluconate 1 APPL/PKT TP ONE (20:11)
--- NOTE | 2016-07-29 21:35 | CP.PCM.PN ---
Subjective - Date & Time of Evaluation Date of Evaluation: 07/29/16 Time of Evaluation: 14:00 - Subjective Subjective: SEEN ON RENAL F/U IN ICU SEEN ON HD .. VSS D/W [employer] ALL PREVIOUS EMR REVIEWED Objective - Vital Signs/Intake and Output Vital Signs (last 24 hours): Temp Pulse Resp BP Pulse Ox 98.4 F 96 H 22 101/57 L 100 07/29/16 16:00 07/29/16 18:00 07/29/16 18:00 07/29/16 18:00 07/29/16 18:00 Intake and Output: 07/29/16 07/30/16 18:59 06:59 Intake Total 1072 Output Total 1999 Balance -928 - Medications Medications: Current Medications Acetaminophen (Tylenol 650mg/20.3ml Solution Ud) 650 mg PO Q6 PRN PRN Reason: fever Last Admin: 07/28/16 23:38 Dose: 650 mg Acetaminophen (Tylenol 325mg Tab) 650 mg PO Q6H PRN PRN Reason: Pain, moderate (4-7) Allopurinol (Zyloprim) 100 mg PO DAILY [facility] Last Admin: 07/29/16 10:36 Dose: 100 mg Artificial Tears (Artificial Tears) 2 drop OU Q6 PRN PRN Reason: Dry eyes Last Admin: 07/29/16 17:14 Dose: 2 drop Ascorbic Acid (Vitamin C 500 Mg Tab) 1,000 mg PO DAILY [facility] Last Admin: 07/29/16 10:36 Dose: 1,000 mg Bismuth Subsalicylate (Pepto-Bismol) 524 mg PO Q6H PRN PRN Reason: Diarrhea Carvedilol (Coreg) 12.5 mg PO BID [facility] Last Admin: 07/29/16 17:05 Dose: 12.5 mg Dextrose (Dextrose 50% Inj) 0 ml IVP STAT PRN; Protocol PRN Reason: Hypoglycemia Protocol Ezetimibe (Zetia) 10 mg PO HS [facility] Last Admin: 07/28/16 21:56 Dose: Not Given Epoetin Jameel (Procrit) 4,000 unit SC MWF [facility] Last Admin: 07/28/16 09:55 Dose: Not Given Ergocalciferol (Drisdol 50,000 Intl Units Cap) 1 cap PO QWK [facility] Glucagon (Glucagen Diagnostic Kit) 0 mg IM STAT PRN; Protocol PRN Reason: Hypoglycemia Protocol Heparin Sodium (Porcine) (Heparin) 5,000 units SC Q8 [facility] GUADALUPE PRN Reason: Protocol Last Admin: 07/29/16 17:13 Dose: 5,000 units Amiodarone HCl 900 mg/ (Dextrose) 518 mls @ 34.53 mls/hr IVPB .Q15H1M [facility]IA GUADALUPE; 1 MG /MIN PRN Reason: Protocol Vancomycin HCl 1 gm/ Sodium (Chloride) 250 mls @ 166.667 mls/hr IVPB MWF [facility] Last Admin: 07/28/16 09:04 Dose: 166.667 mls/hr Cefepime HCl 1 gm/ Sodium (Chloride) 100 mls @ 100 mls/hr IVPB DAILY [facility] Last Admin: 07/29/16 09:07 Dose: 100 mls/hr Piperacillin Sod/Tazobactam (Sod 2.25 gm/ Sodium Chloride) 100 mls @ 100 mls/ hr IVPB Q8H [facility] Last Admin: 07/29/16 17:11 Dose: 100 mls/hr Micafungin Sodium 100 mg/ (Sodium Chloride) 100 mls @ 100 mls/hr IVPB DAILY [facility] Last Admin: 07/29/16 08:27 Dose: 100 mls/hr Norepinephrine Bitartrate 8 mg (/ Dextrose) 258 mls @ 24.18 mls/hr IV .[id number] ONE; 12.5 MCG/MIN PRN Reason: Protocol Stop: 07/29/16 22:54 Last Admin: 07/29/16 13:00 Dose: 12.5 mcg/min, 24.18 mls/hr Insulin Detemir (Levemir) 25 units SC [facility] Last Admin: 07/28/16 21:54 Dose: 25 units Insulin Human Regular (Humulin R) 0 units SC ACHS [facility] PRN Reason: Protocol Last Admin: 07/29/16 17:07 Dose: 2 units Midodrine (Proamatine) 10 mg PO Q8H [facility] Last Admin: 07/29/16 20:37 Dose: 10 mg Pantoprazole Sodium (Protonix Susp) 40 mg PO DAILY [facility] Last Admin: 07/29/16 11:06 Dose: 40 mg Sevelamer Carbonate (Renvela) 0.8 gm PO TID [facility] Last Admin: 07/29/16 17:10 Dose: 0.8 gm Sitagliptin Phosphate (Januvia) 25 mg PO DAILY [facility] Last Admin: 07/29/16 10:34 Dose: 25 mg Tamsulosin HCl (Flomax) 0.4 mg PO DAILY [facility] Last Admin: 07/29/16 10:33 Dose: 0.4 mg Vitamin B Complex/Vit C/Folic Acid (Nephro-Carlitos) 1 tab PO DAILY [facility] Last Admin: 07/29/16 10:34 Dose: 1 tab - Labs Labs: 07/29/16 04:20 07/29/16 04:20 PT 12.5 SECONDS (9.6-11.2) H 07/17/16 04:35 INR 1.20 (0.92-1.08) H 07/17/16 04:35 APTT 34.8 SECONDS (23.3-32.5) H 07/17/16 04:35 Assessment and Plan - Assessment and Plan (Free Text) Assessment: A ON CKD .. ON HD QIW VDRF .. ON VENT SEPTIC SHOCK .. IMPROVING S/P CPR .. ANOXIC ENCEPHALOPATHY P : C/O CURRENT CARE HD AGAIN IN AM X 3H C/O IVAB IV PRESSORS .. WELL MEDODRIN 10 MD VIA PED TID PRN FOR SBP< 10
[2016-07-29] MEDS: Insulin Detemir 100 Units/ml Inj SC SCH (22:02)
[2016-07-29] MEDS ORDERED: Albuterol 0.083% Inhal Sol (2.5 mg/3 mL) UD INH ONE (23:56)
[2016-07-30 05:27] LABS: HEMATOCRIT 21.4 % (35.0-51.0); MEAN CORPUSCULAR HEMOGLOBIN 26.7 pg (27.0-31.0); RED CELL DISTRIBUTION WIDTH 19.1 % (11.5-14.5); WHITE BLOOD COUNT 11.3 K/uL (4.8-10.8)
[2016-07-30 05:34] LABS: ABG ALLEN TEST YES; ABG MECHANICAL RATE 16; ARTERIAL BLOOD GAS HCO3 25.7 mmol/L (21-28); ARTERIAL BLOOD GAS O2 CAPACITY 14.3 mL/dL (16-24); ARTERIAL BLOOD GAS O2 CONTENT 14.2 ML/dL (15-23); ARTERIAL BLOOD GAS PO2 187 mm/Hg (80-100); ARTERIAL BLOOD HGB O2 SAT 96.8 % (95.0-98.0); ATERIAL BLOOD GAS PEEP 5; CARBOXYHEMOGLOBIN 1.1 % (0.5-1.5); HHB 0.5 % (0.0-5.0); METHEMOGLOBIN 1.6 % (0.0-3.0)
[2016-07-30 05:48] LABS: ALB/GLOB RATIO 0.6 (1.0-2.1); CALCIUM 7.6 mg/dL (8.4-10.2); POTASSIUM 4.6 MMOL/L (3.6-5.0); TOTAL PROTEIN 6.9 G/DL (6.3-8.2)
[2016-07-30] MEDS: Insulin Regular 100 units/ml SC SCH ×4 (06:45→21:54)
[2016-07-30] MEDS: Artificial Tears Opht Soln OU PRN (08:25)
[2016-07-30] MEDS: Multivitamin Vitamin B Complex (Nephro-Vite) Tab PO SCH (08:25)
[2016-07-30] MEDS: Cefepime 1 GM in Sodium Chloride 0.9% 100 ML IVPB SCH (08:29)
[2016-07-30] MEDS: Micafungin 100 MG in Sodium Chloride 0.9% 100 ML IVPB SCH (08:31)
[2016-07-30] MEDS: Pantoprazole 40 mg Susp UD PO SCH (08:34)
[2016-07-30] MEDS: Sevelamer Carb 0.8 gm/Packet PO SCH ×3 (08:36→17:43)
--- NOTE | 2016-07-30 09:25 | CP.PCM.PN ---
Subjective - Date & Time of Evaluation Date of Evaluation: 07/30/16 Time of Evaluation: 09:23 - Subjective Subjective: 80 year old man seen in the ICU with attending, Dr. Arora. Patient is unresponsive, he is intubated and on a ventilator. Dressings are clean, dry, and intact. No acute overnight events reported by nursing staff. Objective - Vital Signs/Intake and Output Vital Signs (last 24 hours): Temp Pulse Resp BP Pulse Ox 99.2 F 81 17 111/59 L 100 07/30/16 07:37 07/30/16 08:32 07/30/16 07:37 07/30/16 08:32 07/30/16 07:37 Intake and Output: 07/30/16 07/30/16 06:59 18:59 Intake Total 901 Balance 901 - Medications Medications: Current Medications Acetaminophen (Tylenol 650mg/20.3ml Solution Ud) 650 mg PO Q6 PRN PRN Reason: fever Last Admin: 07/28/16 23:38 Dose: 650 mg Acetaminophen (Tylenol 325mg Tab) 650 mg PO Q6H PRN PRN Reason: Pain, moderate (4-7) Allopurinol (Zyloprim) 100 mg PO DAILY [facility] Last Admin: 07/30/16 08:34 Dose: 100 mg Artificial Tears (Artificial Tears) 2 drop OU Q6 PRN PRN Reason: Dry eyes Last Admin: 07/30/16 08:25 Dose: 2 drop Ascorbic Acid (Vitamin C 500 Mg Tab) 1,000 mg PO DAILY [facility] Last Admin: 07/30/16 08:37 Dose: 1,000 mg Bismuth Subsalicylate (Pepto-Bismol) 524 mg PO Q6H PRN PRN Reason: Diarrhea Carvedilol (Coreg) 12.5 mg PO BID [facility] Last Admin: 07/30/16 08:32 Dose: 12.5 mg Dextrose (Dextrose 50% Inj) 0 ml IVP STAT PRN; Protocol PRN Reason: Hypoglycemia Protocol Ezetimibe (Zetia) 10 mg PO HS [facility] Last Admin: 07/29/16 22:07 Dose: 10 mg Epoetin Jameel (Procrit) 4,000 unit SC MWF [facility] Last Admin: 07/28/16 09:55 Dose: Not Given Ergocalciferol (Drisdol 50,000 Intl Units Cap) 1 cap PO QWK [facility] Glucagon (Glucagen Diagnostic Kit) 0 mg IM STAT PRN; Protocol PRN Reason: Hypoglycemia Protocol Heparin Sodium (Porcine) (Heparin) 5,000 units SC Q8 [facility] PRN Reason: Protocol Last Admin: 07/30/16 08:27 Dose: 5,000 units Amiodarone HCl 900 mg/ (Dextrose) 518 mls @ 34.53 mls/hr IVPB .Q15H1M [facility]; 1 MG /MIN PRN Reason: Protocol Vancomycin HCl 1 gm/ Sodium (Chloride) 250 mls @ 166.667 mls/hr IVPB MWF [facility] Last Admin: 07/28/16 09:04 Dose: 166.667 mls/hr Cefepime HCl 1 gm/ Sodium (Chloride) 100 mls @ 100 mls/hr IVPB DAILY [facility] Last Admin: 07/30/16 08:29 Dose: 100 mls/hr Piperacillin Sod/Tazobactam (Sod 2.25 gm/ Sodium Chloride) 100 mls @ 100 mls/ hr IVPB Q8H [facility] Last Admin: 07/30/16 08:30 Dose: 100 mls/hr Micafungin Sodium 100 mg/ (Sodium Chloride) 100 mls @ 100 mls/hr IVPB DAILY [facility] Last Admin: 07/30/16 08:31 Dose: 100 mls/hr Norepinephrine Bitartrate 8 mg (/ Dextrose) 258 mls @ 24.18 mls/hr IV .[id number] ONE; 12.5 MCG/MIN PRN Reason: Protocol Stop: 07/30/16 10:35 Last Admin: 07/30/16 00:33 Dose: 12.5 mcg/min, 24.18 mls/hr Insulin Detemir (Levemir) 25 units SC HS [facility] Last Admin: 07/29/16 22:02 Dose: 25 units Insulin Human Regular (Humulin R) 0 units SC ACHS [facility] PRN Reason: Protocol Last Admin: 07/30/16 06:45 Dose: 4 units Midodrine (Proamatine) 10 mg PO Q8H [facility] Last Admin: 07/30/16 04:49 Dose: 10 mg Pantoprazole Sodium (Protonix Susp) 40 mg PO DAILY [facility] Last Admin: 07/30/16 08:34 Dose: 40 mg Sevelamer Carbonate (Renvela) 0.8 gm PO TID [facility] Last Admin: 07/30/16 08:36 Dose: 0.8 gm Sitagliptin Phosphate (Januvia) 25 mg PO DAILY [facility] Last Admin: 07/30/16 08:25 Dose: 25 mg Tamsulosin HCl (Flomax) 0.4 mg PO DAILY [facility] Last Admin: 07/30/16 08:35 Dose: 0.4 mg Vitamin B Complex/Vit C/Folic Acid (Nephro-Carlitos) 1 tab PO DAILY [facility] Last Admin: 07/30/16 08:25 Dose: 1 tab - Labs Labs: 07/30/16 04:30 07/30/16 04:30 PT 12.5 SECONDS (9.6-11.2) H 07/17/16 04:35 INR 1.20 (0.92-1.08) H 07/17/16 04:35 APTT 34.8 SECONDS (23.3-32.5) H 07/17/16 04:35 - Constitutional Appears: Chronically Ill - Extremities Exam Additional comments: Lower extremity focused exam: VASC: DP and PT pulses palpable 1/4 b/l. +1 pitting edema noted to lower extremities b/l. DERM: Dyshydrotic epidermal patches noted to b/l LE. Left leg exhibits open ulceration measuring approximately 1 cm by 2 cm by 0.1 cm to the proximal anterior damian. Right leg superficial ulcerations noted to be healed, skin in anterior damian is intact. NEURO: Unresponsive to painful stimuli. ORTHO: No gross deformities noted. Unable to obtain as patient is unresponsive. Assessment and Plan - Assessment and Plan (Free Text) Assessment: 80 year old male with bilateral leg venous stasis dermatitis, secondary to venous insufficiency Plan: Patient examined and evaluated with attending, Dr. Arora Patient with current anoxic encephalopathy, renal failure, and cardiopulmonary compromise contribute to a poor overall prognosis. Chart, labs, and vitals reviewed. Afebrile, WBC=11.3 R LE dressed with abd, DSD, and YADIRA, L LE dressed with vaseline gauze, ABD, DSD , YADIRA Continue IV abx per ID. Podiatry will continue to follow this patient while in house
--- NOTE | 2016-07-30 10:49 | CP.PCM.PN ---
<Mary Britton - Last Filed: 07/30/16 10:47> Subjective - Date & Time of Evaluation Date of Evaluation: 07/30/16 Time of Evaluation: 10:47 - Subjective Subjective: evaluated with attending. overnight events none. no eye movement, no extremity movement to command, no painful stimuli response. no ROS d/t lack of verbal response. HD MWFS, depending on vital signs. HD today. transfuse 2u pRBCs today Objective - Vital Signs/Intake and Output Vital Signs (last 24 hours): Temp Pulse Resp BP Pulse Ox 99.2 F 81 17 111/59 L 100 07/30/16 07:37 07/30/16 08:32 07/30/16 07:37 07/30/16 08:32 07/30/16 07:37 Intake and Output: 07/30/16 07/30/16 06:59 18:59 Intake Total 901 Balance 901 - Medications Medications: Current Medications Acetaminophen (Tylenol 650mg/20.3ml Solution Ud) 650 mg PO Q6 PRN PRN Reason: fever Last Admin: 07/28/16 23:38 Dose: 650 mg Acetaminophen (Tylenol 325mg Tab) 650 mg PO Q6H PRN PRN Reason: Pain, moderate (4-7) Allopurinol (Zyloprim) 100 mg PO DAILY [facility] Last Admin: 07/30/16 08:34 Dose: 100 mg Artificial Tears (Artificial Tears) 2 drop OU Q6 PRN PRN Reason: Dry eyes Last Admin: 07/30/16 08:25 Dose: 2 drop Ascorbic Acid (Vitamin C 500 Mg Tab) 1,000 mg PO DAILY [facility] Last Admin: 07/30/16 08:37 Dose: 1,000 mg Bismuth Subsalicylate (Pepto-Bismol) 524 mg PO Q6H PRN PRN Reason: Diarrhea Carvedilol (Coreg) 12.5 mg PO BID [facility] Last Admin: 07/30/16 08:32 Dose: 12.5 mg Dextrose (Dextrose 50% Inj) 0 ml IVP STAT PRN; Protocol PRN Reason: Hypoglycemia Protocol Ezetimibe (Zetia) 10 mg PO HS [facility] Last Admin: 07/29/16 22:07 Dose: 10 mg Epoetin Jameel (Procrit) 4,000 unit SC MWF [facility] Last Admin: 07/28/16 09:55 Dose: Not Given Ergocalciferol (Drisdol 50,000 Intl Units Cap) 1 cap PO QWK [facility] Glucagon (Glucagen Diagnostic Kit) 0 mg IM STAT PRN; Protocol PRN Reason: Hypoglycemia Protocol Heparin Sodium (Porcine) (Heparin) 5,000 units SC Q8 [facility] PRN Reason: Protocol Last Admin: 07/30/16 08:27 Dose: 5,000 units Amiodarone HCl 900 mg/ (Dextrose) 518 mls @ 34.53 mls/hr IVPB .Q15H1M [facility]; 1 MG /MIN PRN Reason: Protocol Vancomycin HCl 1 gm/ Sodium (Chloride) 250 mls @ 166.667 mls/hr IVPB MWF [facility] Last Admin: 07/28/16 09:04 Dose: 166.667 mls/hr Cefepime HCl 1 gm/ Sodium (Chloride) 100 mls @ 100 mls/hr IVPB DAILY [facility] Last Admin: 07/30/16 08:29 Dose: 100 mls/hr Piperacillin Sod/Tazobactam (Sod 2.25 gm/ Sodium Chloride) 100 mls @ 100 mls/ hr IVPB Q8H [facility] Last Admin: 07/30/16 08:30 Dose: 100 mls/hr Micafungin Sodium 100 mg/ (Sodium Chloride) 100 mls @ 100 mls/hr IVPB DAILY [facility] Last Admin: 07/30/16 08:31 Dose: 100 mls/hr Insulin Detemir (Levemir) 25 units SC [facility] Last Admin: 07/29/16 22:02 Dose: 25 units Insulin Human Regular (Humulin R) 0 units SC ACHS [facility] PRN Reason: Protocol Last Admin: 07/30/16 06:45 Dose: 4 units Midodrine (Proamatine) 10 mg PO Q8H [facility] Last Admin: 07/30/16 04:49 Dose: 10 mg Pantoprazole Sodium (Protonix Susp) 40 mg PO DAILY [facility] Last Admin: 07/30/16 08:34 Dose: 40 mg Sevelamer Carbonate (Renvela) 0.8 gm PO TID [facility] Last Admin: 07/30/16 08:36 Dose: 0.8 gm Sitagliptin Phosphate (Januvia) 25 mg PO DAILY [facility] Last Admin: 07/30/16 08:25 Dose: 25 mg Tamsulosin HCl (Flomax) 0.4 mg PO DAILY [facility] Last Admin: 07/30/16 08:35 Dose: 0.4 mg Vitamin B Complex/Vit C/Folic Acid (Nephro-Carlitos) 1 tab PO DAILY [facility] Last Admin: 07/30/16 08:25 Dose: 1 tab - Labs Labs: 07/30/16 04:30 07/30/16 04:30 PT 12.5 SECONDS (9.6-11.2) H 07/17/16 04:35 INR 1.20 (0.92-1.08) H 07/17/16 04:35 APTT 34.8 SECONDS (23.3-32.5) H 07/17/16 04:35 - Constitutional Appears: Non-toxic - Head Exam Head Exam: ATRAUMATIC - Eye Exam Pupil Exam: Fixed - ENT Exam Additional comments: intubated - Neck Exam Neck Exam: Normal Inspection - Respiratory Exam Respiratory Exam: Clear to Ausculation Bilateral - Cardiovascular Exam Cardiovascular Exam: REGULAR RHYTHM - GI/Abdominal Exam GI & Abdominal Exam: Soft - Extremities Exam Extremities Exam: Pedal Edema - Neurological Exam Neurological Exam: absent: Alert, Awake Additional comments: intubated, GCS 2, E1V(T)M1 - Skin Skin Exam: Dry Assessment and Plan - Assessment and Plan (Free Text) Assessment: 80yo M with PMHx HTN, diabetes, prostate BPH and CKD admitted for acute on chronic kidney injury, cellulitis. Currently in ICU for bacteremia with anoxic brain injury on ventilator and unresponsive. DNR. HD M/W/F/S. HD today and 2u pRBC transfusion for today cardiac arrest -Cardio on board, appreciate input -neuro on board, appreciate input -miniature set designer on board, appreciate input -code status changed to full code respiratory failure -Cardio on board, appreciate input -neuro on board, appreciate input -miniature set designer on board, appreciate input -surgery on board, appreciate input. possible trach -intubated AC 21/07/79% bacteremia -2/2 cellulitis, PNA, or other source. h/o cath placement -blood cx: S anginosus/constellatus -ID on board, appreciate input -Cefepime, Micafungin, Vanc, Zosyn -pressors aspiration PNA -CXR 07/29/16: b/l infiltrates, R>L -ID on board, appreciate input -intubated MV 14//50% -Cefepime, Micafungin, Vanc, Zosyn pAfib -Cardio on board, appreciate input -coreg -amiodarone acute on CKD -HD M/W/F/S -Nephro on board, appreciate input cellulitis -Cefepime, Micafungin, Vanc, Zosyn -ID on board, appreciate input -podiatry on board, appreciate input anoxic brain injury -GCS 2, E1V(T)M1 -2/2 renal failure, sepsis, or cardiorenal syndrome -CT head no acute change -neuro on board, appreciate input -intubated AC 14//80% -EEG -not able to send for MRI -repeat CT head anemia -EPO -FOBT neg -transfuse 2u PRBCs -Nephro on board, appreciate input anasarca -low albumin -monitor -HD -Nephro on board, appreciate input HTN -coreg HLD -statin -zetia DM -held linagliptin, pioglitazone -januvia -levemir -SSI -accuchecks DVT ppx -heparin Dispo: likely LTAC after trach placement and stable for transfer <Tang Solorio K - Last Filed: 08/01/16 17:53> Objective - Vital Signs/Intake and Output Vital Signs (last 24 hours): Temp Pulse Resp BP Pulse Ox 98.8 F 76 20 101/61 100 08/01/16 16:00 08/01/16 16:32 08/01/16 16:00 08/01/16 16:32 08/01/16 16:00 Intake and Output: 08/01/16 08/01/16 06:59 18:59 Intake Total 760 1334 Output Total 0 500 Balance 760 834 - Medications Medications: Current Medications Acetaminophen (Tylenol 650mg/20.3ml Solution Ud) 650 mg PO Q6 PRN PRN Reason: fever Last Admin: 07/28/16 23:38 Dose: 650 mg Acetaminophen (Tylenol 325mg Tab) 650 mg PO Q6H PRN PRN Reason: Pain, moderate (4-7) Allopurinol (Zyloprim) 100 mg PO DAILY [facility] Last Admin: 08/01/16 16:37 Dose: 100 mg Artificial Tears (Artificial Tears) 2 drop OU Q6 PRN PRN Reason: Dry eyes Last Admin: 08/01/16 08:46 Dose: 2 drop Ascorbic Acid (Vitamin C 500 Mg Tab) 1,000 mg PO DAILY [facility] Last Admin: 08/01/16 16:35 Dose: 1,000 mg Bismuth Subsalicylate (Pepto-Bismol) 524 mg PO Q6H PRN PRN Reason: Diarrhea Carvedilol (Coreg) 12.5 mg PO BID [facility] Last Admin: 08/01/16 16:32 Dose: 12.5 mg Dextrose (Dextrose 50% Inj) 0 ml IVP STAT PRN; Protocol PRN Reason: Hypoglycemia Protocol Ezetimibe (Zetia) 10 mg PO [facility] Last Admin: 07/31/16 22:06 Dose: 10 mg Epoetin Jameel (Procrit) 4,000 unit SC [facility] Last Admin: 08/01/16 08:50 Dose: 4,000 unit Ergocalciferol (Drisdol 50,000 Intl Units Cap) 1 cap PO QWK [facility] Glucagon (Glucagen Diagnostic Kit) 0 mg IM STAT PRN; Protocol PRN Reason: Hypoglycemia Protocol Heparin Sodium (Porcine) (Heparin) 5,000 units SC Q8 [facility] PRN Reason: Protocol Last Admin: 08/01/16 16:32 Dose: 5,000 units Vancomycin HCl 1 gm/ Sodium (Chloride) 250 mls @ 166.667 mls/hr IVPB MWF [facility] Last Admin: 08/01/16 08:51 Dose: 166.667 mls/hr Micafungin Sodium 100 mg/ (Sodium Chloride) 100 mls @ 100 mls/hr IVPB DAILY [facility] Last Admin: 08/01/16 08:49 Dose: 100 mls/hr Cefepime HCl 1 gm/ Sodium (Chloride) 100 mls @ 100 mls/hr IVPB DAILY [facility] Last Admin: 08/01/16 08:48 Dose: 100 mls/hr Piperacillin Sod/Tazobactam (Sod 2.25 gm/ Sodium Chloride) 100 mls @ 100 mls/ hr IVPB Q8 [facility] Last Admin: 08/01/16 16:36 Dose: 100 mls/hr Insulin Detemir (Levemir) 25 units SC [facility] Last Admin: 08/01/16 00:00 Dose: 25 units Insulin Human Regular (Humulin R) 0 units SC ACHS [facility] PRN Reason: Protocol Last Admin: 08/01/16 16:33 Dose: Not Given Midodrine (Proamatine) 10 mg PO Q8H [facility] Last Admin: 08/01/16 16:34 Dose: 10 mg Pantoprazole Sodium (Protonix Susp) 40 mg PO DAILY [facility] Last Admin: 08/01/16 16:34 Dose: 40 mg Sevelamer Carbonate (Renvela) 0.8 gm PO TID [facility] Last Admin: 08/01/16 16:35 Dose: 0.8 gm Sitagliptin Phosphate (Januvia) 25 mg PO DAILY [facility] Last Admin: 08/01/16 16:34 Dose: 25 mg Tamsulosin HCl (Flomax) 0.4 mg PO DAILY [facility] Last Admin: 08/01/16 16:32 Dose: 0.4 mg Vitamin B Complex/Vit C/Folic Acid (Nephro-Carlitos) 1 tab PO DAILY [facility] Last Admin: 08/01/16 16:34 Dose: 1 tab - Labs Labs: 08/01/16 04:20 08/01/16 04:20 PT 12.7 SECONDS (9.6-11.2) H 07/31/16 04:40 INR 1.22 (0.92-1.08) H 07/31/16 04:40 APTT 30.1 SECONDS (23.3-32.5) 07/31/16 04:40 Assessment and Plan - Assessment and Plan (Free Text) Assessment: Patient seen and examined with residents in rounds. Case, condition, investigative work up and plan discussed in detail. Agree with residents progress note. Plan: As ordered. (Tang Solorio MD)
--- NOTE | 2016-07-30 12:20 | RAD ---
HISTORY: ETT placement COMPARISON: No prior. FINDINGS: LUNGS: In situ ETT, the tip of which appears to lie approximately 3.3 cm above chandrakant however note that the chandrakant is poorly seen due to of large body habitus and poor technique/underpenetration. Large-bore dual-lumen right IJ dialysis catheter with tip in the SVC unchanged. Low lung volumes. Diffuse bilateral infiltrates. Findings could represent pulmonary edema/ CHF and or pneumonia. PLEURA: No significant pleural effusion identified, no pneumothorax apparent. CARDIOVASCULAR: Heart size is difficult to assess due to silhouetting OSSEOUS STRUCTURES: No significant abnormalities. VISUALIZED UPPER ABDOMEN: Normal. OTHER FINDINGS: None. IMPRESSION: In situ ETT, the tip of which appears to lie approximately 3.3 cm above chandrakant however note that the chandrakant is poorly seen due to of large body habitus and poor technique/underpenetration. Large-bore dual-lumen right IJ dialysis catheter with tip in the SVC unchanged. Low lung volumes. Diffuse bilateral infiltrates. Findings could represent pulmonary edema/ CHF and or pneumonia.
--- NOTE | 2016-07-30 14:13 | CP.CCUPN ---
<Cee Garcia - Last Filed: 07/30/16 13:57> CCU Subjective - Physician Review Subjective (Free Text): 07/30/16 14:13 Patient seen and examined at bedside with ICU attending during morning rounds. He remains on levophed drip running @12.5mcg/min but was afebrile overnight. Patient remains unresponsive to verbal/physical stimuli and on mechanical ventilation. He was able to tolerate decreasing FiO2 from 80% to 50% well this morning. Patient remains full code. CCU Objective - Vital Signs / Intake & Output Vital Signs (Last 4 hours): Vital Signs Temp Pulse Resp BP Pulse Ox 07/30/16 11:46 98.4 F 78 15 89/42 L 100 Intake and Output (Last 8hrs): Intake & Output 07/29/16 07/30/16 07/30/16 22:59 06:59 14:59 Intake Total 688 587 670 Balance 688 587 670 Intake: IV 188 47 410 Intake, Piggyback 100 100 Oral 80 Tube Feeding 320 440 110 Free Water Flush 150 Other: # Voids Urine, Voided 1 - Physical Exam Head: Positive for: Atraumatic, Normocephalic Pupils: Positive for: Non-Reactive Extroacular Muscles: Negative for: EOMI Conjunctiva: Negative for: Injected, Icteric Mouth: Positive for: Dry Neck: Positive for: Other (Right IJ HD catheter site clean, dry, with no signs of erythema.) Respiratory/Chest: Positive for: Other (Intubated, on mechanical ventilation. B/ L air entry present but decreased at lung bases with scattered crackles b/l.). Negative for: Wheezes Cardiovascular: Positive for: Regular Rate and Rhythm. Negative for: Murmurs Abdomen: Positive for: Normal Bowel Sounds. Negative for: Tenderness, Distention Genitourinary Male: Positive for: Other (Right groin TLC site clean, dry, with no surrounding erythema. ) Upper Extremity: Positive for: Edema (B/L upper extremity edema), Other ( Generalized anasarca) Lower Extremity: Positive for: Edema (2+ b/l LE), Other (Lower extremity YADIRA dressings.) Neurological: Positive for: Other (Unresponsive to verbal or painful stimuli. Pupils fixed. Corneal reflex present with occasional spontaneous blink. Mild gag reflex. Not moving extremities. Occassionally moving head from sided to side however no purposeful movements.). Negative for: CN II-XII Intact Psychiatric: Negative for: Alert - Medications Active Medications: Active Medications Generic Name Dose Route Start Last Admin Trade Name Freq PRN Reason Stop Dose Admin Acetaminophen 650 mg 07/26/16 03:55 07/28/16 23:38 Tylenol 650mg/20.3ml Solution Ud PO 650 mg Q6 PRN Administration fever Acetaminophen 650 mg 07/29/16 10:45 Tylenol 325mg Tab PO Q6H PRN Pain, moderate (4-7) Allopurinol 100 mg 07/19/16 09:00 07/30/16 08:34 Zyloprim PO 100 mg DAILY MARIA GUADALUPE Administration Artificial Tears 2 drop 07/26/16 16:18 07/30/16 08:25 Artificial Tears OU 2 drop Q6 PRN Administration Dry eyes Ascorbic Acid 1,000 mg 07/23/16 09:00 07/30/16 08:37 Vitamin C 500 Mg Tab PO 1,000 mg DAILY MARIA GUADALUPE Administration Bismuth Subsalicylate 524 mg 07/18/16 20:13 Pepto-Bismol PO Q6H PRN Diarrhea Carvedilol 12.5 mg 07/19/16 09:00 07/30/16 08:32 Coreg PO 12.5 mg BID MARIA GUADALUPE Administration Dextrose 0 ml 07/18/16 20:13 Dextrose 50% Inj IVP STAT PRN Hypoglycemia Protocol Protocol Ezetimibe 10 mg 07/18/16 22:00 07/29/16 22:07 Zetia PO 10 mg HS MARIA GUADALUPE Administration Epoetin Jameel 4,000 unit 07/28/16 09:00 07/28/16 09:55 Procrit SC Not Given MWF [facility] Ergocalciferol 1 cap 07/18/16 20:13 Drisdol 50,000 Intl Units Cap PO QWK MARIA GUADALUPE Glucagon 0 mg 07/18/16 20:13 Glucagen Diagnostic Kit IM STAT PRN Hypoglycemia Protocol Protocol Heparin Sodium (Porcine) 5,000 units 07/29/16 17:00 07/30/16 08:27 Heparin SC 5,000 units Q8 MARIA GUADALUPE Administration Protocol Amiodarone HCl 900 mg/ 518 mls @ 34.53 mls/hr 07/23/16 15:45 Dextrose IVPB .Q15H1M MARIA GUADALUPE Protocol 1 MG/MIN Vancomycin HCl 1 gm/ Sodium 250 mls @ 166.667 mls/hr 07/28/16 09:00 07/28/16 09:04 Chloride IVPB 166.667 mls/hr MWF MARIA GUADALUPE Administration Piperacillin Sod/Tazobactam 100 mls @ 100 mls/hr 07/26/16 01:30 07/30/16 08: 30 Sod 2.25 gm/ Sodium Chloride IVPB 100 mls/hr Q8H MARIA GUADALUPE Administration Micafungin Sodium 100 mg/ 100 mls @ 100 mls/hr 07/27/16 13:45 07/30/16 08:31 Sodium Chloride IVPB 100 mls/hr DAILY MARIA GUADALUPE Administration Insulin Detemir 25 units 07/18/16 22:00 07/29/16 22:02 Levemir SC 25 units HS MARIA GUADALUPE Administration Insulin Human Regular 0 units 07/19/16 06:45 07/30/16 12:45 Humulin R SC 10 units ACHS MARIA GUADALUPE Administration Protocol Midodrine 10 mg 07/29/16 20:30 07/30/16 04:49 Proamatine PO 10 mg Q8H MARIA GUADALUPE Administration Pantoprazole Sodium 40 mg 07/29/16 11:00 07/30/16 08:34 Protonix Susp PO 40 mg DAILY MARIA GUADALUPE Administration Sevelamer Carbonate 0.8 gm 07/19/16 09:00 07/30/16 08:36 Renvela PO 0.8 gm TID MARIA GUADALUPE Administration Sitagliptin Phosphate 25 mg 07/19/16 09:00 07/30/16 08:25 Januvia PO 25 mg DAILY MARIA GUADALUPE Administration Tamsulosin HCl 0.4 mg 07/19/16 09:00 07/30/16 08:35 Flomax PO 0.4 mg DAILY MARIA GUADALUPE Administration Vitamin B Complex/Vit C/Folic Acid 1 tab 07/23/16 09:00 07/30/16 08:25 Nephro-Carlitos PO 1 tab DAILY MARIA GUADALUPE Administration - Patient Studies Lab Studies: Microbiology Studies 07/25/16 04:20 Blood Culture - Final Blood-Venous NO GROWTH AFTER 5 DAYS Gram Stain - Final 07/25/16 15:00 Blood Culture - Preliminary Blood-During Dialysis NO GROWTH AFTER 4 DAYS 07/25/16 12:00 Blood Culture - Preliminary Blood-Thru Central Line NO GROWTH AFTER 4 DAYS Lab Studies 07/30/16 07/30/16 07/30/16 Range/Units 11:02 05:30 05:12 WBC (4.8-10.8) K/uL RBC (4.40-5.90) Mil/uL Hgb (12.0-18.0) g/dL Hct (35.0-51.0) % MCV (80.0-94.0) fl MCH (27.0-31.0) pg MCHC (33.0-37.0) g/dL RDW (11.5-14.5) % Plt Count (130-400) K/uL pCO2 42 (35-45) mm/Hg pO2 187 H (80-100) mm/Hg HCO3 25.7 (21-28) mmol/L ABG pH 7.40 (7.35-7.45) ABG Total CO2 27.3 (22-28) mmol/L ABG O2 Saturation 99.5 H (95-98) % ABG O2 Content 14.2 L (15-23) ML/dL ABG Base Excess 1.0 (-2.0-3.0) mmol/L ABG Hemoglobin 10.1 L (11.7-17.4) g/dL ABG Carboxyhemoglobin 1.1 (0.5-1.5) % POC ABG HHb (Measured) 0.5 (0.0-5.0) % ABG Methemoglobin 1.6 (0.0-3.0) % ABG O2 Capacity 14.3 L (16-24) mL/dL Mason Test Yes A-a O2 Difference 331.0 mm/Hg Hgb O2 Saturation 96.8 (95.0-98.0) % Mechanical Rate 16 FiO2 80.0 % Tidal Volume 450 PEEP 5 Sodium (132-148) mmol/l Potassium (3.6-5.0) MMOL/L Chloride (98-107) mmol/L Carbon Dioxide (22-30) mmol/L Anion Gap (10-20) BUN (9-20) mg/dl Creatinine (0.8-1.5) mg/dL Est GFR ( Amer) Est GFR (Non-Af Amer) POC Glucose (mg/dL) 352 H 211 H (65-110) mg/dL Random Glucose (75-110) mg/dL Calcium (8.4-10.2) mg/dL Total Bilirubin (0.2-1.3) mg/dl AST (17-59) U/L ALT (21-72) U/L Alkaline Phosphatase (38-126) U/L Total Protein (6.3-8.2) G/DL Albumin (3.5-5.0) g/dL Globulin (2.2-3.9) gm/dL Albumin/Globulin Ratio (1.0-2.1) Blood Type Antibody Screen Crossmatch BBK History Checked 07/30/16 07/30/16 07/29/16 Range/Units 04:30 04:30 22:05 WBC 11.3 H (4.8-10.8) K/uL RBC 2.48 L (4.40-5.90) Mil/uL Hgb 6.6 L (12.0-18.0) g/dL Hct 21.4 L (35.0-51.0) % MCV 86.0 (80.0-94.0) fl MCH 26.7 L (27.0-31.0) pg MCHC 31.0 L (33.0-37.0) g/dL RDW 19.1 H (11.5-14.5) % Plt Count 195 (130-400) K/uL pCO2 (35-45) mm/Hg pO2 (80-100) mm/Hg HCO3 (21-28) mmol/L ABG pH (7.35-7.45) ABG Total CO2 (22-28) mmol/L ABG O2 Saturation (95-98) % ABG O2 Content (15-23) ML/dL ABG Base Excess (-2.0-3.0) mmol/L ABG Hemoglobin (11.7-17.4) g/dL ABG Carboxyhemoglobin (0.5-1.5) % POC ABG HHb (Measured) (0.0-5.0) % ABG Methemoglobin (0.0-3.0) % ABG O2 Capacity (16-24) mL/dL Mason Test A-a O2 Difference mm/Hg Hgb O2 Saturation (95.0-98.0) % Mechanical Rate FiO2 % Tidal Volume PEEP Sodium 136 (132-148) mmol/l Potassium 4.6 (3.6-5.0) MMOL/L Chloride 99 (98-107) mmol/L Carbon Dioxide 25 (22-30) mmol/L Anion Gap 17 (10-20) BUN 63 H (9-20) mg/dl Creatinine 4.8 H (0.8-1.5) mg/dL Est GFR ( Amer) 14 Est GFR (Non-Af Amer) 12 POC Glucose (mg/dL) 262 H (65-110) mg/dL Random Glucose 248 H (75-110) mg/dL Calcium 7.6 L (8.4-10.2) mg/dL Total Bilirubin 1.0 (0.2-1.3) mg/dl AST 115 H (17-59) U/L ALT 67 (21-72) U/L Alkaline Phosphatase 240 H (38-126) U/L Total Protein 6.9 (6.3-8.2) G/DL Albumin 2.7 L (3.5-5.0) g/dL Globulin 4.2 H (2.2-3.9) gm/dL Albumin/Globulin Ratio 0.6 L (1.0-2.1) Blood Type Antibody Screen Crossmatch BBK History Checked 07/29/16 07/29/16 Range/Units 16:58 08:36 WBC (4.8-10.8) K/uL RBC (4.40-5.90) Mil/uL Hgb (12.0-18.0) g/dL Hct (35.0-51.0) % MCV (80.0-94.0) fl MCH (27.0-31.0) pg MCHC (33.0-37.0) g/dL RDW (11.5-14.5) % Plt Count (130-400) K/uL pCO2 (35-45) mm/Hg pO2 (80-100) mm/Hg HCO3 (21-28) mmol/L ABG pH (7.35-7.45) ABG Total CO2 (22-28) mmol/L ABG O2 Saturation (95-98) % ABG O2 Content (15-23) ML/dL ABG Base Excess (-2.0-3.0) mmol/L ABG Hemoglobin (11.7-17.4) g/dL ABG Carboxyhemoglobin (0.5-1.5) % POC ABG HHb (Measured) (0.0-5.0) % ABG Methemoglobin (0.0-3.0) % ABG O2 Capacity (16-24) mL/dL Mason Test A-a O2 Difference mm/Hg Hgb O2 Saturation (95.0-98.0) % Mechanical Rate FiO2 % Tidal Volume PEEP Sodium (132-148) mmol/l Potassium (3.6-5.0) MMOL/L Chloride (98-107) mmol/L Carbon Dioxide (22-30) mmol/L Anion Gap (10-20) BUN (9-20) mg/dl Creatinine (0.8-1.5) mg/dL Est GFR ( Amer) Est GFR (Non-Af Amer) POC Glucose (mg/dL) 179 H (65-110) mg/dL Random Glucose (75-110) mg/dL Calcium (8.4-10.2) mg/dL Total Bilirubin (0.2-1.3) mg/dl AST (17-59) U/L ALT (21-72) U/L Alkaline Phosphatase (38-126) U/L Total Protein (6.3-8.2) G/DL Albumin (3.5-5.0) g/dL Globulin (2.2-3.9) gm/dL Albumin/Globulin Ratio (1.0-2.1) Blood Type O POSITIVE Antibody Screen Negative Crossmatch See Detail BBK History Checked Patient has bt Laboratory Results - last 24 hr 07/29/16 07/29/16 07/29/16 08:36 16:58 22:05 WBC RBC Hgb Hct MCV MCH MCHC RDW Plt Count pCO2 pO2 HCO3 ABG pH ABG Total CO2 ABG O2 Saturation ABG O2 Content ABG Base Excess ABG Hemoglobin ABG Carboxyhemoglobin POC ABG HHb (Measured) ABG Methemoglobin ABG O2 Capacity Mason Test A-a O2 Difference Hgb O2 Saturation Mechanical Rate FiO2 Tidal Volume PEEP Sodium Potassium Chloride Carbon Dioxide Anion Gap BUN Creatinine Est GFR ( Amer) Est GFR (Non-Af Amer) POC Glucose (mg/dL) 179 H 262 H Random Glucose Calcium Total Bilirubin AST ALT Alkaline Phosphatase Total Protein Albumin Globulin Albumin/Globulin Ratio Blood Type O POSITIVE Antibody Screen Negative Crossmatch See Detail BBK History Checked Patient has bt 07/30/16 07/30/1617 04:30 04:30 05:12 WBC 11.3 H RBC 2.48 L Hgb 6.6 L Hct 21.4 L MCV 86.0 MCH 26.7 L MCHC 31.0 L RDW 19.1 H Plt Count 195 pCO2 pO2 HCO3 ABG pH ABG Total CO2 ABG O2 Saturation ABG O2 Content ABG Base Excess ABG Hemoglobin ABG Carboxyhemoglobin POC ABG HHb (Measured) ABG Methemoglobin ABG O2 Capacity Mason Test A-a O2 Difference Hgb O2 Saturation Mechanical Rate FiO2 Tidal Volume PEEP Sodium 136 Potassium 4.6 Chloride 99 Carbon Dioxide 25 Anion Gap 17 BUN 63 H Creatinine 4.8 H Est GFR ( Amer) 14 Est GFR (Non-Af Amer) 12 POC Glucose (mg/dL) 211 H Random Glucose 248 H Calcium 7.6 L Total Bilirubin 1.0 AST 115 H ALT 67 Alkaline Phosphatase 240 H Total Protein 6.9 Albumin 2.7 L Globulin 4.2 H Albumin/Globulin Ratio 0.6 L Blood Type Antibody Screen Crossmatch BBK History Checked 07/30/16 07/30/16 05:30 11:02 WBC RBC Hgb Hct MCV MCH MCHC RDW Plt Count pCO2 42 pO2 187 H HCO3 25.7 ABG pH 7.40 ABG Total CO2 27.3 ABG O2 Saturation 99.5 H ABG O2 Content 14.2 L ABG Base Excess 1.0 ABG Hemoglobin 10.1 L ABG Carboxyhemoglobin 1.1 POC ABG HHb (Measured) 0.5 ABG Methemoglobin 1.6 ABG O2 Capacity 14.3 L Mason Test Yes A-a O2 Difference 331.0 Hgb O2 Saturation 96.8 Mechanical Rate 16 FiO2 80.0 Tidal Volume 450 PEEP 5 Sodium Potassium Chloride Carbon Dioxide Anion Gap BUN Creatinine Est GFR ( Amer) Est GFR (Non-Af Amer) POC Glucose (mg/dL) 352 H Random Glucose Calcium Total Bilirubin AST ALT Alkaline Phosphatase Total Protein Albumin Globulin Albumin/Globulin Ratio Blood Type Antibody Screen Crossmatch BBK History Checked Fingerstick Blood Sugar Results: 352 Review of Systems - Review of Systems Systems not reviewed;Unavailable: Intubated Assessment/Plan - Assessment and Plan (Free Text) Assessment: 80 y/o with PMH including HTN, DM2, Hyperlipidemia, Morbid obesity, CKD Stage IV presented to [facility] for 2 weeks of progressive abdominal pain, lower extremity erythema and generalized malaise. He was subsequently admitted for lower extremity cellulitis, possible cholecystitis and acute on chronic CKD associated with multiple electrolyte abnormalities. During admission, patient had signs of lethargy and was sent for CT Head and Chest, during which an CARDIOLOGY PHYSICIAN ASSISTANT was called. CARDIOLOGY PHYSICIAN ASSISTANT converted to code blue for cardiac/respiratory arrest. Patient was coded for 10 minutes and was intubated, with return of spontaneous circulation. Patient was then transferred to ICU on 07/14/16. Since then, patient has been intubated, unresponsive and septic. 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 He again had a code blue called on 07/28/16 and was resuscitated with epinephrine and atropine. Current ICU day 17. Plan: Anoxic Brain Injury -Secondary to cardiac arrest for over 10 minutes with hypoxemia on 07/14/16 and again on 07/28/16 -Absent pupillary response. Corneal reflex present. Dolls eyes negative. Gag reflex absent however carinal reflex can be elicited. -Patient is not brain due to preserved brain stem functions, however remains in vegetative state -Family currently undecided on tracheostomy and PEG -Continue neuro checks -Neurology consulted, requesting repeat CT Head due to recent code Acute Respiratory Failure -Etiology possibly secondary to aspiration pneumonia? -Patient intubated on 07/14/16 due to cardiac/respiratory arrest -Currently on mechanical ventilation, day 17 -Vent settings overnight: 14/500/5/80% but tolerating weaning to FiO2 of 50% -Current Vent settings: 14/500/5/50% -If family wishes to continue full code status, will consider early tracheostomy and PICC moving forward Septic shock, with Strep Anginosus Bacteremia -Etiology secondary to GI vs Aspiration pneumonia -Last fever: 100.6F on 07/28 @23:38 -WBC: 11.3 -On levophed 12.5mcg -Blood culture from 07/09 detected strep anginosus sensitive to Vancomycin -Repeat venous blood culture obtained on 07/25 during febrile episode reveals no growth after 5 days -Blood cultures obtained from IJ during dialysis and femoral line on 07/25 also reveal no growth after 4 days -On empiric abx: Vancomycin 1gm IV Q72h (Since 07/13) and Zosyn 2.25 gm IV Q8h ( Started 07/11, day ) Cefepime 1gm IV daily(Started 07/25, day 6) -Yeast species detected on tracheal aspirate. Micafungin started on 07/27, current day 4 Acute on Chronic Kidney Failure -Has been following with nephrology, Dr Morse as outpatient -BUN/Cr: 63/4.8 -Started on HD during admission, which patient has been receiving on MWF schedule. Nephro recently added additional dialysis for Saturdays -Received dialysis yesterday with plan for additional dialysis today Paroxysmal Atrial Fibrillation -Has had several episodes of afib during dialysis which resolved with amiodarone. -Rate controlled. Sinus rhythm today. Will monitor. Feeds -Nepro via OGT DVT Prophylaxis -Heparin 5,000units SC Q8H Code Status -Full code <Vito Mckeon - Last Filed: 07/30/16 18:19> CCU Subjective - Physician Review Subjective (Free Text): Attestation: Patient seen and examined at the bedside with Resident Dr. Sung Garcia; and I agree with his outline of plans and management documented as discussed on AM rounds reflecting my review of all applicable clinical data, and participation in the care of the patient throughout the day in ICU; today, July 30, 2016.
[2016-07-30] MEDS: Epoetin Alfa 4000 UNIT/ML Inj SC SCH (14:44)
--- NOTE | 2016-07-30 17:36 | CP.PCM.PN ---
Subjective - Date & Time of Evaluation Date of Evaluation: 07/30/16 Time of Evaluation: 08:00 - Subjective Subjective: 80yo M with PMHx HTN, diabetes, prostate BPH and CKD admitted for sepsis with bacteremia secondary to strep anginosus - work up for endocarditis interrupted when ppt coded and developed severe anoxic encephalopathy Remains intubated on vent receiving HD remains comatose with no corneal reflexes and fixed dilated pupils IV antibiotics in progress Objective - Vital Signs/Intake and Output Vital Signs (last 24 hours): Temp Pulse Resp BP Pulse Ox 98.4 F 77 22 90/52 L 100 07/30/16 11:46 07/30/16 15:00 07/30/16 15:00 07/30/16 15:00 07/30/16 15:00 Intake and Output: 07/30/16 07/30/16 06:59 18:59 Intake Total 901 1447 Balance 901 1447 - Medications Medications: Current Medications Acetaminophen (Tylenol 650mg/20.3ml Solution Ud) 650 mg PO Q6 PRN PRN Reason: fever Last Admin: 07/28/16 23:38 Dose: 650 mg Acetaminophen (Tylenol 325mg Tab) 650 mg PO Q6H PRN PRN Reason: Pain, moderate (4-7) Allopurinol (Zyloprim) 100 mg PO DAILY [facility] Last Admin: 07/30/16 08:34 Dose: 100 mg Artificial Tears (Artificial Tears) 2 drop OU Q6 PRN PRN Reason: Dry eyes Last Admin: 07/30/16 08:25 Dose: 2 drop Ascorbic Acid (Vitamin C 500 Mg Tab) 1,000 mg PO DAILY [facility] Last Admin: 07/30/16 08:37 Dose: 1,000 mg Bismuth Subsalicylate (Pepto-Bismol) 524 mg PO Q6H PRN PRN Reason: Diarrhea Carvedilol (Coreg) 12.5 mg PO BID [facility] Last Admin: 07/30/16 08:32 Dose: 12.5 mg Dextrose (Dextrose 50% Inj) 0 ml IVP STAT PRN; Protocol PRN Reason: Hypoglycemia Protocol Ezetimibe (Zetia) 10 mg PO HS [facility] Last Admin: 07/29/16 22:07 Dose: 10 mg Epoetin Jameel (Procrit) 4,000 unit SC MWF [facility] Last Admin: 07/30/16 14:44 Dose: 4,000 unit Ergocalciferol (Drisdol 50,000 Intl Units Cap) 1 cap PO QWK [facility] Glucagon (Glucagen Diagnostic Kit) 0 mg IM STAT PRN; Protocol PRN Reason: Hypoglycemia Protocol Heparin Sodium (Porcine) (Heparin) 5,000 units SC Q8 MARIA GUADALUPE PRN Reason: Protocol Last Admin: 07/30/16 08:27 Dose: 5,000 units Amiodarone HCl 900 mg/ (Dextrose) 518 mls @ 34.53 mls/hr IVPB .Q15H1M MARIA GUADALUPE; 1 MG /MIN PRN Reason: Protocol Vancomycin HCl 1 gm/ Sodium (Chloride) 250 mls @ 166.667 mls/hr IVPB MWF [facility] Last Admin: 07/30/16 14:45 Dose: 166.667 mls/hr Piperacillin Sod/Tazobactam (Sod 2.25 gm/ Sodium Chloride) 100 mls @ 100 mls/ hr IVPB Q8H [facility] Last Admin: 07/30/16 08:30 Dose: 100 mls/hr Micafungin Sodium 100 mg/ (Sodium Chloride) 100 mls @ 100 mls/hr IVPB DAILY [facility] Last Admin: 07/30/16 08:31 Dose: 100 mls/hr Norepinephrine Bitartrate 8 mg (/ Dextrose) 258 mls @ 23.4 mls/hr IV .Q11H2M ONE; Per Protocol PRN Reason: Protocol Stop: 07/31/16 01:16 Last Admin: 07/30/16 14:42 Dose: 23.4 mls/hr Insulin Detemir (Levemir) 25 units SC [facility] Last Admin: 07/29/16 22:02 Dose: 25 units Insulin Human Regular (Humulin R) 0 units SC ACHS [facility] PRN Reason: Protocol Last Admin: 07/30/16 12:45 Dose: 10 units Midodrine (Proamatine) 10 mg PO Q8H [facility] Last Admin: 07/30/16 12:50 Dose: 10 mg Pantoprazole Sodium (Protonix Susp) 40 mg PO DAILY [facility] Last Admin: 07/30/16 08:34 Dose: 40 mg Sevelamer Carbonate (Renvela) 0.8 gm PO TID [facility] Last Admin: 07/30/16 12:50 Dose: 0.8 gm Sitagliptin Phosphate (Januvia) 25 mg PO DAILY [facility] Last Admin: 07/30/16 08:25 Dose: 25 mg Tamsulosin HCl (Flomax) 0.4 mg PO DAILY [facility] Last Admin: 07/30/16 08:35 Dose: 0.4 mg Vitamin B Complex/Vit C/Folic Acid (Nephro-Carlitos) 1 tab PO DAILY [facility] Last Admin: 07/30/16 08:25 Dose: 1 tab - Labs Labs: 07/30/16 04:30 07/30/16 04:30 PT 12.5 SECONDS (9.6-11.2) H 07/17/16 04:35 INR 1.20 (0.92-1.08) H 07/17/16 04:35 APTT 34.8 SECONDS (23.3-32.5) H 07/17/16 04:35 - Head Exam Head Exam: NORMOCEPHALIC - Eye Exam Eye Exam: absent: Scleral icterus Pupil Exam: Fixed - ENT Exam ENT Exam: Mucous Membranes Dry - Neck Exam Neck Exam: absent: Lymphadenopathy - Respiratory Exam Respiratory Exam: Decreased Breath Sounds - Cardiovascular Exam Cardiovascular Exam: Tachycardia, REGULAR RHYTHM, +S1, +S2 - GI/Abdominal Exam GI & Abdominal Exam: Distended, Soft - Rectal Exam Rectal Exam: Deferred - Extremities Exam Extremities Exam: Pedal Edema. absent: Tenderness - Back Exam Back Exam: absent: CVA tenderness (L), CVA tenderness (R) - Neurological Exam Neurological Exam: Altered Assessment and Plan (1) Acute kidney failure Status: Acute (2) Cellulitis of right lower extremity Status: Acute (3) Bacteremia Status: Acute (4) Bacteremia Status: Acute
--- NOTE | 2016-07-30 20:13 | CP.PCM.PN ---
Subjective - Date & Time of Evaluation Date of Evaluation: 07/30/16 Time of Evaluation: 20:11 - Subjective Subjective: Mr. Montalvo was seen and examined today at bedside in the ICU. His family was present at bedside. There has been no significant change in his clinical status. His prognosis remains very poor. Objective - Vital Signs/Intake and Output Vital Signs (last 24 hours): Temp Pulse Resp BP Pulse Ox 99.0 F 82 22 102/61 99 07/30/16 16:00 07/30/16 18:00 07/30/16 18:00 07/30/16 18:00 07/30/16 18:00 Intake and Output: 07/30/16 07/31/16 18:59 06:59 Intake Total 1917 Output Total 1999 Balance -83 - Medications Medications: Current Medications Acetaminophen (Tylenol 650mg/20.3ml Solution Ud) 650 mg PO Q6 PRN PRN Reason: fever Last Admin: 07/28/16 23:38 Dose: 650 mg Acetaminophen (Tylenol 325mg Tab) 650 mg PO Q6H PRN PRN Reason: Pain, moderate (4-7) Allopurinol (Zyloprim) 100 mg PO DAILY [facility] Last Admin: 07/30/16 08:34 Dose: 100 mg Artificial Tears (Artificial Tears) 2 drop OU Q6 PRN PRN Reason: Dry eyes Last Admin: 07/30/16 08:25 Dose: 2 drop Ascorbic Acid (Vitamin C 500 Mg Tab) 1,000 mg PO DAILY [facility] Last Admin: 07/30/16 08:37 Dose: 1,000 mg Bismuth Subsalicylate (Pepto-Bismol) 524 mg PO Q6H PRN PRN Reason: Diarrhea Carvedilol (Coreg) 12.5 mg PO BID [facility] Last Admin: 07/30/16 17:41 Dose: 12.5 mg Dextrose (Dextrose 50% Inj) 0 ml IVP STAT PRN; Protocol PRN Reason: Hypoglycemia Protocol Ezetimibe (Zetia) 10 mg PO HS [facility] Last Admin: 07/29/16 22:07 Dose: 10 mg Epoetin Jameel (Procrit) 4,000 unit SC MWF [facility] Last Admin: 07/30/16 14:44 Dose: 4,000 unit Ergocalciferol (Drisdol 50,000 Intl Units Cap) 1 cap PO QWK [facility] Glucagon (Glucagen Diagnostic Kit) 0 mg IM STAT PRN; Protocol PRN Reason: Hypoglycemia Protocol Heparin Sodium (Porcine) (Heparin) 5,000 units SC Q8 [facility] PRN Reason: Protocol Last Admin: 07/30/16 17:42 Dose: 5,000 units Amiodarone HCl 900 mg/ (Dextrose) 518 mls @ 34.53 mls/hr IVPB .Q15H1M [facility]; 1 MG /MIN PRN Reason: Protocol Vancomycin HCl 1 gm/ Sodium (Chloride) 250 mls @ 166.667 mls/hr IVPB MWF [facility] Last Admin: 07/30/16 14:45 Dose: 166.667 mls/hr Piperacillin Sod/Tazobactam (Sod 2.25 gm/ Sodium Chloride) 100 mls @ 100 mls/ hr IVPB Q8H [facility] Last Admin: 07/30/16 17:43 Dose: 100 mls/hr Micafungin Sodium 100 mg/ (Sodium Chloride) 100 mls @ 100 mls/hr IVPB DAILY [facility] Last Admin: 07/30/16 08:31 Dose: 100 mls/hr Norepinephrine Bitartrate 8 mg (/ Dextrose) 258 mls @ 23.4 mls/hr IV .Q11H2M ONE; Per Protocol PRN Reason: Protocol Stop: 07/31/16 01:16 Last Admin: 07/30/16 14:42 Dose: 23.4 mls/hr Insulin Detemir (Levemir) 25 units SC [facility] Last Admin: 07/29/16 22:02 Dose: 25 units Insulin Human Regular (Humulin R) 0 units SC ACHS [facility] PRN Reason: Protocol Last Admin: 07/30/16 17:40 Dose: 4 units Midodrine (Proamatine) 10 mg PO Q8H [facility] Last Admin: 07/30/16 20:01 Dose: 10 mg Pantoprazole Sodium (Protonix Susp) 40 mg PO DAILY [facility] Last Admin: 07/30/16 08:34 Dose: 40 mg Sevelamer Carbonate (Renvela) 0.8 gm PO TID [facility] Last Admin: 07/30/16 17:43 Dose: 0.8 gm Sitagliptin Phosphate (Januvia) 25 mg PO DAILY [facility] Last Admin: 07/30/16 08:25 Dose: 25 mg Tamsulosin HCl (Flomax) 0.4 mg PO DAILY [facility] Last Admin: 07/30/16 08:35 Dose: 0.4 mg Vitamin B Complex/Vit C/Folic Acid (Nephro-Carlitos) 1 tab PO DAILY [facility] Last Admin: 07/30/16 08:25 Dose: 1 tab - Labs Labs: 07/30/16 04:30 07/30/16 04:30 PT 12.5 SECONDS (9.6-11.2) H 07/17/16 04:35 INR 1.20 (0.92-1.08) H 07/17/16 04:35 APTT 34.8 SECONDS (23.3-32.5) H 07/17/16 04:35 - Neurological Exam Additional comments: Neurologically unchanged compared with previous examination. Assessment and Plan (1) Anoxic brain injury Assessment & Plan: Continue current management per the family's wishes. Discuss DNR status and careplan. No further recommendations from a neurologic standpoint. Status: Acute
[2016-07-30] MEDS: Insulin Detemir 100 Units/ml Inj SC SCH (21:52)
--- NOTE | 2016-07-30 23:47 | CP.PCM.PN ---
Subjective - Date & Time of Evaluation Date of Evaluation: 07/30/16 Time of Evaluation: 13:00 - Subjective Subjective: seen on renal f/u in icu recieving 2 u prbc will get hd today with uf of 2 l remains intubated on pressors all previous emr reviewed case d/w and son Porfirio at length Objective - Vital Signs/Intake and Output Vital Signs (last 24 hours): Temp Pulse Resp BP Pulse Ox 100.1 F H 97 H 25 H 102/71 100 07/30/16 20:00 07/30/16 21:00 07/30/16 21:00 07/30/16 21:00 07/30/16 21:00 Intake and Output: 07/30/16 07/31/16 18:59 06:59 Intake Total 1917 158 Output Total 1999 Balance -83 158 - Medications Medications: Current Medications Acetaminophen (Tylenol 650mg/20.3ml Solution Ud) 650 mg PO Q6 PRN PRN Reason: fever Last Admin: 07/28/16 23:38 Dose: 650 mg Acetaminophen (Tylenol 325mg Tab) 650 mg PO Q6H PRN PRN Reason: Pain, moderate (4-7) Allopurinol (Zyloprim) 100 mg PO DAILY [facility] Last Admin: 07/30/16 08:34 Dose: 100 mg Artificial Tears (Artificial Tears) 2 drop OU Q6 PRN PRN Reason: Dry eyes Last Admin: 07/30/16 08:25 Dose: 2 drop Ascorbic Acid (Vitamin C 500 Mg Tab) 1,000 mg PO DAILY [facility] Last Admin: 07/30/16 08:37 Dose: 1,000 mg Bismuth Subsalicylate (Pepto-Bismol) 524 mg PO Q6H PRN PRN Reason: Diarrhea Carvedilol (Coreg) 12.5 mg PO BID [facility] Last Admin: 07/30/16 17:41 Dose: 12.5 mg Dextrose (Dextrose 50% Inj) 0 ml IVP STAT PRN; Protocol PRN Reason: Hypoglycemia Protocol Ezetimibe (Zetia) 10 mg PO HS [facility] Last Admin: 07/30/16 21:53 Dose: 10 mg Epoetin Jameel (Procrit) 4,000 unit SC MWF [facility] Last Admin: 07/30/16 14:44 Dose: 4,000 unit Ergocalciferol (Drisdol 50,000 Intl Units Cap) 1 cap PO QWK [facility] Glucagon (Glucagen Diagnostic Kit) 0 mg IM STAT PRN; Protocol PRN Reason: Hypoglycemia Protocol Heparin Sodium (Porcine) (Heparin) 5,000 units SC Q8 [facility] PRN Reason: Protocol Last Admin: 07/30/16 17:42 Dose: 5,000 units Amiodarone HCl 900 mg/ (Dextrose) 518 mls @ 34.53 mls/hr IVPB .Q15H1M [facility]; 1 MG /MIN PRN Reason: Protocol Vancomycin HCl 1 gm/ Sodium (Chloride) 250 mls @ 166.667 mls/hr IVPB MWF [facility] Last Admin: 07/30/16 14:45 Dose: 166.667 mls/hr Piperacillin Sod/Tazobactam (Sod 2.25 gm/ Sodium Chloride) 100 mls @ 100 mls/ hr IVPB Q8H [facility] Last Admin: 07/30/16 17:43 Dose: 100 mls/hr Micafungin Sodium 100 mg/ (Sodium Chloride) 100 mls @ 100 mls/hr IVPB DAILY [facility] Last Admin: 07/30/16 08:31 Dose: 100 mls/hr Norepinephrine Bitartrate 8 mg (/ Dextrose) 258 mls @ 23.4 mls/hr IV .Q11H2M ONE; Per Protocol PRN Reason: Protocol Stop: 07/31/16 01:16 Last Admin: 07/30/16 14:42 Dose: 23.4 mls/hr Insulin Detemir (Levemir) 25 units SC HS [facility] Last Admin: 07/30/16 21:52 Dose: 25 units Insulin Human Regular (Humulin R) 0 units SC ACHS [facility] PRN Reason: Protocol Last Admin: 07/30/16 21:54 Dose: Not Given Midodrine (Proamatine) 10 mg PO Q8H [facility] Last Admin: 07/30/16 20:01 Dose: 10 mg Pantoprazole Sodium (Protonix Susp) 40 mg PO DAILY [facility] Last Admin: 07/30/16 08:34 Dose: 40 mg Sevelamer Carbonate (Renvela) 0.8 gm PO TID [facility] Last Admin: 07/30/16 17:43 Dose: 0.8 gm Sitagliptin Phosphate (Januvia) 25 mg PO DAILY [facility] Last Admin: 07/30/16 08:25 Dose: 25 mg Tamsulosin HCl (Flomax) 0.4 mg PO DAILY [facility] Last Admin: 07/30/16 08:35 Dose: 0.4 mg Vitamin B Complex/Vit C/Folic Acid (Nephro-Carlitos) 1 tab PO DAILY [facility] Last Admin: 07/30/16 08:25 Dose: 1 tab - Labs Labs: 07/30/16 04:30 07/30/16 04:30 PT 12.5 SECONDS (9.6-11.2) H 07/17/16 04:35 INR 1.20 (0.92-1.08) H 07/17/16 04:35 APTT 34.8 SECONDS (23.3-32.5) H 07/17/16 04:35 Assessment and Plan - Assessment and Plan (Free Text) Assessment: ESRD ON HD QIW ANEMIA .. S/P 2 U PRBC TRANSFUSION SEPTIC SHOCK .. ON PRESSORS .. ON ICAB MULTIPLE CO MORBIDITIES P : C/O CURRENT CARE C/O PRESENT MANAGEMENT
[2016-07-31 05:28] LABS: HEMATOCRIT 26.8 % (35.0-51.0); MEAN CELL VOLUME 86.1 fl (80.0-94.0); MEAN CORPUSCULAR HEMOGLOBIN 27.2 pg (27.0-31.0); MEAN CORPUSCULAR HGB CONC 31.6 g/dL (33.0-37.0); RED CELL DISTRIBUTION WIDTH 18.1 % (11.5-14.5); WHITE BLOOD COUNT 10.1 K/uL (4.8-10.8)
[2016-07-31 05:38] LABS: ALB/GLOB RATIO 0.6 (1.0-2.1); BILIRUBIN,TOTAL 1.3 mg/dl (0.2-1.3); CALCIUM 7.6 mg/dL (8.4-10.2); POTASSIUM 4.2 MMOL/L (3.6-5.0); TOTAL PROTEIN 6.9 G/DL (6.3-8.2)
[2016-07-31 05:41] LABS: PARTIAL THROMBOPLASTIN TIME 30.1 SECONDS (23.3-32.5)
[2016-07-31 05:49] LABS: ABG ALLEN TEST YES; ABG MECHANICAL RATE 14; ARTERIAL BLOOD GAS HCO3 27.9 mmol/L (21-28); ARTERIAL BLOOD GAS MODE A/C; ARTERIAL BLOOD GAS O2 CAPACITY 13.1 mL/dL (16-24); ARTERIAL BLOOD GAS O2 CONTENT 13.1 ML/dL (15-23); ARTERIAL BLOOD GAS PH 7.43 (7.35-7.45); ARTERIAL BLOOD GAS PO2 76 mm/Hg (80-100); ARTERIAL BLOOD HGB O2 SAT 94.7 % (95.0-98.0); ATERIAL BLOOD GAS PEEP 5; CARBOXYHEMOGLOBIN 3.4 % (0.5-1.5); METHEMOGLOBIN 1.9 % (0.0-3.0)
[2016-07-31] MEDS: Insulin Regular 100 units/ml SC SCH ×4 (07:17→23:00)
[2016-07-31] MEDS: Multivitamin Vitamin B Complex (Nephro-Vite) Tab PO SCH (08:56)
[2016-07-31] MEDS: Micafungin 100 MG in Sodium Chloride 0.9% 100 ML IVPB SCH (08:56)
[2016-07-31] MEDS: Sevelamer Carb 0.8 gm/Packet PO SCH ×3 (10:16→16:39)
[2016-07-31] MEDS: Pantoprazole 40 mg Susp UD PO SCH (10:16)
--- NOTE | 2016-07-31 10:36 | CP.PCM.PN ---
<Mary Britton - Last Filed: 07/31/16 10:54> Subjective - Date & Time of Evaluation Date of Evaluation: 07/31/16 Time of Evaluation: 10:34 - Subjective Subjective: d/w attending. overnight events none. no eye movement, no extremity movement to command, no painful stimuli response. no ROS d/t lack of verbal response. HD yesterday. s/p transfusion 2u pRBCs yesterday Objective - Vital Signs/Intake and Output Vital Signs (last 24 hours): Temp Pulse Resp BP Pulse Ox 98.8 F 83 27 H 107/58 L 99 07/31/16 08:00 07/31/16 10:28 07/31/16 10:28 07/31/16 10:28 07/31/16 10:28 Intake and Output: 07/31/16 07/31/16 06:59 18:59 Intake Total 970 100 Balance 970 100 - Medications Medications: Current Medications Acetaminophen (Tylenol 650mg/20.3ml Solution Ud) 650 mg PO Q6 PRN PRN Reason: fever Last Admin: 07/28/16 23:38 Dose: 650 mg Acetaminophen (Tylenol 325mg Tab) 650 mg PO Q6H PRN PRN Reason: Pain, moderate (4-7) Allopurinol (Zyloprim) 100 mg PO DAILY [facility] Last Admin: 07/31/16 10:19 Dose: 100 mg Artificial Tears (Artificial Tears) 2 drop OU Q6 PRN PRN Reason: Dry eyes Last Admin: 07/30/16 08:25 Dose: 2 drop Ascorbic Acid (Vitamin C 500 Mg Tab) 1,000 mg PO DAILY [facility] Last Admin: 07/31/16 10:18 Dose: 1,000 mg Bismuth Subsalicylate (Pepto-Bismol) 524 mg PO Q6H PRN PRN Reason: Diarrhea Carvedilol (Coreg) 12.5 mg PO BID [facility] Last Admin: 07/31/16 08:53 Dose: Not Given Dextrose (Dextrose 50% Inj) 0 ml IVP STAT PRN; Protocol PRN Reason: Hypoglycemia Protocol Ezetimibe (Zetia) 10 mg PO HS [facility] Last Admin: 07/30/16 21:53 Dose: 10 mg Epoetin Jameel (Procrit) 4,000 unit SC MWF [facility] Last Admin: 07/30/16 14:44 Dose: 4,000 unit Ergocalciferol (Drisdol 50,000 Intl Units Cap) 1 cap PO QWK [facility] Glucagon (Glucagen Diagnostic Kit) 0 mg IM STAT PRN; Protocol PRN Reason: Hypoglycemia Protocol Heparin Sodium (Porcine) (Heparin) 5,000 units SC Q8 [facility] PRN Reason: Protocol Last Admin: 07/31/16 08:55 Dose: 5,000 units Amiodarone HCl 900 mg/ (Dextrose) 518 mls @ 34.53 mls/hr IVPB .Q15H1M [facility]; 1 MG /MIN PRN Reason: Protocol Vancomycin HCl 1 gm/ Sodium (Chloride) 250 mls @ 166.667 mls/hr IVPB MWF [facility] Last Admin: 07/30/16 14:45 Dose: 166.667 mls/hr Micafungin Sodium 100 mg/ (Sodium Chloride) 100 mls @ 100 mls/hr IVPB DAILY [facility] Last Admin: 07/31/16 08:56 Dose: 100 mls/hr Norepinephrine Bitartrate 8 mg (/ Dextrose) 258 mls @ 24.18 mls/hr IV .[id number] ONE; 12.5 MCG/MIN PRN Reason: Protocol Stop: 07/31/16 14:59 Last Admin: 07/31/16 04:51 Dose: 12.5 mcg/min, 24.18 mls/hr Insulin Detemir (Levemir) 25 units SC HS [facility] Last Admin: 07/30/16 21:52 Dose: 25 units Insulin Human Regular (Humulin R) 0 units SC ACHS [facility] PRN Reason: Protocol Last Admin: 07/31/16 07:17 Dose: 8 units Midodrine (Proamatine) 10 mg PO Q8H [facility] Last Admin: 07/31/16 04:12 Dose: 10 mg Pantoprazole Sodium (Protonix Susp) 40 mg PO DAILY [facility] Last Admin: 07/31/16 10:16 Dose: 40 mg Sevelamer Carbonate (Renvela) 0.8 gm PO TID [facility] Last Admin: 07/31/16 10:16 Dose: 0.8 gm Sitagliptin Phosphate (Januvia) 25 mg PO DAILY [facility] Last Admin: 07/31/16 08:55 Dose: 25 mg Tamsulosin HCl (Flomax) 0.4 mg PO DAILY [facility] Last Admin: 07/31/16 08:54 Dose: 0.4 mg Vitamin B Complex/Vit C/Folic Acid (Nephro-Carlitos) 1 tab PO DAILY [facility] Last Admin: 07/31/16 08:56 Dose: 1 tab - Labs Labs: 07/31/16 04:40 07/31/16 04:40 PT 12.7 SECONDS (9.6-11.2) H 07/31/16 04:40 INR 1.22 (0.92-1.08) H 07/31/16 04:40 APTT 30.1 SECONDS (23.3-32.5) 07/31/16 04:40 - Constitutional Appears: Non-toxic - Head Exam Head Exam: ATRAUMATIC - Eye Exam Pupil Exam: Fixed - ENT Exam ENT Exam: Mucous Membranes Moist - Neck Exam Neck Exam: Normal Inspection - Respiratory Exam Respiratory Exam: NORMAL BREATHING PATTERN Additional comments: intubated - Cardiovascular Exam Cardiovascular Exam: REGULAR RHYTHM - GI/Abdominal Exam GI & Abdominal Exam: Soft - Extremities Exam Extremities Exam: Normal Capillary Refill, Pedal Edema - Neurological Exam Neurological Exam: absent: Alert, Awake Additional comments: -GCS 2, E1V(T)M1 - Skin Skin Exam: Dry Assessment and Plan - Assessment and Plan (Free Text) Assessment: 80yo M with PMHx HTN, diabetes, prostate BPH and CKD admitted for acute on chronic kidney injury, cellulitis. Currently in ICU for bacteremia with anoxic brain injury on ventilator and unresponsive. Full code. on HD. s/p 2u pRBC transfusion, H/H improved. Poor prognosis. cardiac arrest -Cardio on board, appreciate input -neuro on board, appreciate input -e commerce marketing analyst on board, appreciate input -full code respiratory failure -Cardio on board, appreciate input -neuro on board, appreciate input -e commerce marketing analyst on board, appreciate input -surgery on board, appreciate input. possible trach -intubated AC 40% bacteremia -2/2 cellulitis, PNA, or other source. h/o cath placement -blood cx: S anginosus/constellatus -ID on board, appreciate input -Cefepime, Micafungin, Vanc, Zosyn -pressors aspiration PNA -CXR 07/30/16: b/l infiltrates -ID on board, appreciate input -intubated MV 14/5/50% -Cefepime, Micafungin, Vanc, Zosyn pAfib -Cardio on board, appreciate input -coreg -amiodarone acute on CKD -HD -Nephro on board, appreciate input cellulitis -Cefepime, Micafungin, Vanc, Zosyn -ID on board, appreciate input -podiatry on board, appreciate input anoxic brain injury -GCS 2, E1V(T)M1 -2/2 renal failure, sepsis, or cardiorenal syndrome -CT head x2 no acute change -neuro on board, appreciate input -intubated AC 20/07/40% anemia -EPO -FOBT neg -transfused 2u PRBCs. H/H improved -Nephro on board, appreciate input anasarca -low albumin -monitor -HD -Nephro on board, appreciate input HTN -coreg HLD -statin -zetia DM -held linagliptin, pioglitazone -januvia -levemir -SSI -accuchecks DVT ppx -heparin Dispo: likely LTAC after trach placement and stable for transfer Code: full <Tang Solorio K - Last Filed: 08/01/16 18:00> Objective - Vital Signs/Intake and Output Vital Signs (last 24 hours): Temp Pulse Resp BP Pulse Ox 98.8 F 74 21 97/61 L 99 08/01/16 16:00 08/01/16 17:55 08/01/16 17:55 08/01/16 17:55 08/01/16 17:55 Intake and Output: 08/01/16 08/01/16 06:59 18:59 Intake Total 760 1334 Output Total 0 500 Balance 760 834 - Medications Medications: Current Medications Acetaminophen (Tylenol 650mg/20.3ml Solution Ud) 650 mg PO Q6 PRN PRN Reason: fever Last Admin: 07/28/16 23:38 Dose: 650 mg Acetaminophen (Tylenol 325mg Tab) 650 mg PO Q6H PRN PRN Reason: Pain, moderate (4-7) Allopurinol (Zyloprim) 100 mg PO DAILY [facility] Last Admin: 08/01/16 16:37 Dose: 100 mg Artificial Tears (Artificial Tears) 2 drop OU Q6 PRN PRN Reason: Dry eyes Last Admin: 08/01/16 08:46 Dose: 2 drop Ascorbic Acid (Vitamin C 500 Mg Tab) 1,000 mg PO DAILY [facility] Last Admin: 08/01/16 16:35 Dose: 1,000 mg Bismuth Subsalicylate (Pepto-Bismol) 524 mg PO Q6H PRN PRN Reason: Diarrhea Carvedilol (Coreg) 12.5 mg PO BID [facility] Last Admin: 08/01/16 16:32 Dose: 12.5 mg Dextrose (Dextrose 50% Inj) 0 ml IVP STAT PRN; Protocol PRN Reason: Hypoglycemia Protocol Ezetimibe (Zetia) 10 mg PO [facility] Last Admin: 07/31/16 22:06 Dose: 10 mg Epoetin Jameel (Procrit) 4,000 unit SC [facility] [place] Last Admin: 08/01/16 08:50 Dose: 4,000 unit Ergocalciferol (Drisdol 50,000 Intl Units Cap) 1 cap PO QWK [facility] Glucagon (Glucagen Diagnostic Kit) 0 mg IM STAT PRN; Protocol PRN Reason: Hypoglycemia Protocol Heparin Sodium (Porcine) (Heparin) 5,000 units SC Q8 [facility] PRN Reason: Protocol Last Admin: 08/01/16 16:32 Dose: 5,000 units Vancomycin HCl 1 gm/ Sodium (Chloride) 250 mls @ 166.667 mls/hr [place] [facility] [place] Admin: 08/01/16 08:51 Dose: 166.667 mls/hr Micafungin Sodium 100 mg/ (Sodium Chloride) 100 mls @ 100 mls/hr IVPB DAILY [facility] Last Admin: 08/01/16 08:49 Dose: 100 mls/hr Cefepime HCl 1 gm/ Sodium (Chloride) 100 mls @ 100 mls/hr IVPB DAILY [facility] Last Admin: 08/01/16 08:48 Dose: 100 mls/hr Piperacillin Sod/Tazobactam (Sod 2.25 gm/ Sodium Chloride) 100 mls @ 100 mls/ hr IVPB Q8 [facility] Last Admin: 08/01/16 16:36 Dose: 100 mls/hr Insulin Detemir (Levemir) 25 units SC [facility] Last Admin: 08/01/16 00:00 Dose: 25 units Insulin Human Regular (Humulin R) 0 units SC ACHS [facility] PRN Reason: Protocol Last Admin: 08/01/16 16:33 Dose: Not Given Midodrine (Proamatine) 10 mg PO Q8H [facility] Last Admin: 08/01/16 16:34 Dose: 10 mg Pantoprazole Sodium (Protonix Susp) 40 mg PO DAILY [facility] Last Admin: 08/01/16 16:34 Dose: 40 mg Sevelamer Carbonate (Renvela) 0.8 gm PO TID [facility] Last Admin: 08/01/16 16:35 Dose: 0.8 gm Sitagliptin Phosphate (Januvia) 25 mg PO DAILY [facility] Last Admin: 08/01/16 16:34 Dose: 25 mg Tamsulosin HCl (Flomax) 0.4 mg PO DAILY [facility] Last Admin: 08/01/16 16:32 Dose: 0.4 mg Vitamin B Complex/Vit C/Folic Acid (Nephro-Carlitos) 1 tab PO DAILY [facility] Last Admin: 08/01/16 16:34 Dose: 1 tab - Labs Labs: 08/01/16 04:20 08/01/16 04:20 PT 12.7 SECONDS (9.6-11.2) H 07/31/16 04:40 INR 1.22 (0.92-1.08) H 07/31/16 04:40 APTT 30.1 SECONDS (23.3-32.5) 07/31/16 04:40 Assessment and Plan - Assessment and Plan (Free Text) Assessment: Patient seen and examined with residents in rounds. Case, condition, investigative work up and plan discussed in detail. Agree with residents progress note. Plan: As ordered. (Tang Solorio MD)
--- NOTE | 2016-07-31 10:56 | CP.CCUPN ---
<Cee Garcia - Last Filed: 07/31/16 16:26> CCU Subjective - Physician Review Subjective (Free Text): 07/31/16 10:53 Patient seen and examined at bedside with ICU attending during morning rounds. He received 2 units pRBC yesterday and remains on levophed drip running @12.5mcg /min. He has been satting between 98-99% on vent settings of 14/500/5/40%. Patient remains unresponsive to verbal/physical stimuli and on mechanical ventilation. No fevers overnight. Patient remains full code. CCU Objective - Vital Signs / Intake & Output Vital Signs (Last 4 hours): Vital Signs Temp Pulse Resp BP Pulse Ox 07/31/16 10:28 83 27 H 107/58 L 99 07/31/16 08:53 88 79/50 L 07/31/16 08:50 85 25 H 106/59 L 86 L 07/31/16 08:00 98.8 F 85 24 79/23 L 100 Intake and Output (Last 8hrs): Intake & Output 07/30/16 07/31/16 07/31/16 22:59 06:59 14:59 Intake Total 738 702 100 Output Total 1999 Balance -1262 702 100 Intake: IV 148 162 Intake, Piggyback 100 100 100 Tube Feeding 440 440 Free Water Flush 50 Output: Ultrafiltrate 1999 Other: # Bowel Movements 1 - Physical Exam Head: Positive for: Atraumatic, Normocephalic Pupils: Positive for: Non-Reactive Extroacular Muscles: Negative for: EOMI Conjunctiva: Negative for: Injected, Icteric Mouth: Positive for: Dry Neck: Positive for: Other (Right IJ HD catheter site clean, dry, with no signs of erythema.) Respiratory/Chest: Positive for: Other (Intubated, on mechanical ventilation. B/ L air entry present but decreased at lung bases with scattered crackles b/l.). Negative for: Wheezes Cardiovascular: Positive for: Regular Rate and Rhythm. Negative for: Murmurs Abdomen: Positive for: Normal Bowel Sounds. Negative for: Tenderness, Distention Genitourinary Male: Positive for: Other (Right groin TLC site clean, dry, with no surrounding erythema. ) Upper Extremity: Positive for: Edema (B/L upper extremity edema), Other ( Generalized anasarca which has remained stable compared to prior assessments) Lower Extremity: Positive for: Edema (2+ b/l LE), Other (Lower extremity YADIRA dressings.) Neurological: Positive for: Other (Unresponsive to verbal or painful stimuli. Pupils fixed. Corneal reflex present with occasional spontaneous blink. Corinal reflex present. No gag reflex. Not moving extremities. Occassionally moving head from sided to side.). Negative for: CN II-XII Intact Psychiatric: Negative for: Alert - Medications Active Medications: Active Medications Generic Name Dose Route Start Last Admin Trade Name Freq PRN Reason Stop Dose Admin Acetaminophen 650 mg 07/26/16 03:55 07/28/16 23:38 Tylenol 650mg/20.3ml Solution Ud PO 650 mg Q6 PRN Administration fever Acetaminophen 650 mg 07/29/16 10:45 Tylenol 325mg Tab PO Q6H PRN Pain, moderate (4-7) Allopurinol 100 mg 07/19/16 09:00 07/31/16 10:19 Zyloprim PO 100 mg DAILY MARIA GUADALUPE Administration Artificial Tears 2 drop 07/26/16 16:18 07/30/16 08:25 Artificial Tears OU 2 drop Q6 PRN Administration Dry eyes Ascorbic Acid 1,000 mg 07/23/16 09:00 07/31/16 10:18 Vitamin C 500 Mg Tab PO 1,000 mg DAILY MARIA GUADALUPE Administration Bismuth Subsalicylate 524 mg 07/18/16 20:13 Pepto-Bismol PO Q6H PRN Diarrhea Carvedilol 12.5 mg 07/19/16 09:00 07/31/16 08:53 Coreg PO Not Given BID MARIA GUADALUPE Dextrose 0 ml 07/18/16 20:13 Dextrose 50% Inj IVP STAT PRN Hypoglycemia Protocol Protocol Ezetimibe 10 mg 07/18/16 22:00 07/30/16 21:53 Zetia PO 10 mg HS MARIA GUADALUPE Administration Epoetin Jameel 4,000 unit 07/28/16 09:00 07/30/16 14:44 Procrit SC 4,000 unit MWF MARIA GUADALUPE Administration Ergocalciferol 1 cap 07/18/16 20:13 Drisdol 50,000 Intl Units Cap PO QWK MARIA GUADALUPE Glucagon 0 mg 07/18/16 20:13 Glucagen Diagnostic Kit IM STAT PRN Hypoglycemia Protocol Protocol Heparin Sodium (Porcine) 5,000 units 07/29/16 17:00 07/31/16 08:55 Heparin SC 5,000 units Q8 MARIA GUADALUPE Administration Protocol Vancomycin HCl 1 gm/ Sodium 250 mls @ 166.667 mls/hr 07/28/16 09:00 07/30/16 14:45 Chloride IVPB 166.667 mls/hr MWF MARIA GUADALUPE Administration Micafungin Sodium 100 mg/ 100 mls @ 100 mls/hr 07/27/16 13:45 07/31/16 08:56 Sodium Chloride IVPB 100 mls/hr DAILY MARIA GUADALUPE Administration Norepinephrine Bitartrate 8 mg 258 mls @ 24.18 mls/hr 07/31/16 04:19 04:51 / Dextrose IV 07/31/16 14:59 12.5 mcg/min .[id number] ONE 24.18 mls/hr Protocol Administration 12.5 MCG/MIN Cefepime HCl 1 gm/ Sodium 100 mls @ 100 mls/hr 07/31/16 11:00 Chloride IVPB DAILY MARIA GUADALUPE Piperacillin Sod/Tazobactam 100 mls @ 100 mls/hr 07/31/16 11:00 Sod 2.25 gm/ Sodium Chloride IVPB Q8 MARIA GUADALUPE Insulin Detemir 25 units 07/18/16 22:00 07/30/16 21:52 Levemir SC 25 units HS MARIA GUADALUPE Administration Insulin Human Regular 0 units 07/19/16 06:45 07/31/16 07:17 Humulin R SC 8 units ACHS MARIA GUADALUPE Administration Protocol Midodrine 10 mg 07/29/16 20:30 07/31/16 04:12 Proamatine PO 10 mg Q8H MARIA GUADALUPE Administration Pantoprazole Sodium 40 mg 07/29/16 11:00 07/31/16 10:16 Protonix Susp PO 40 mg DAILY MARIA GUADALUPE Administration Sevelamer Carbonate 0.8 gm 07/19/16 09:00 07/31/16 10:16 Renvela PO 0.8 gm TID MARIA GUADALUPE Administration Sitagliptin Phosphate 25 mg 07/19/16 09:00 07/31/16 08:55 Januvia PO 25 mg DAILY MARIA GUADALUPE Administration Tamsulosin HCl 0.4 mg 07/19/16 09:00 07/31/16 08:54 Flomax PO 0.4 mg DAILY MARIA GUADALUPE Administration Vitamin B Complex/Vit C/Folic Acid 1 tab 07/23/16 09:00 07/31/16 08:56 Nephro-Carlitos PO 1 tab DAILY MARIA GUADALUPE Administration - Patient Studies Lab Studies: Microbiology Studies 07/25/16 15:00 Blood Culture - Final Blood-During Dialysis NO GROWTH AFTER 5 DAYS Gram Stain - Final TEST NOT PERFORMED 07/25/16 12:00 Blood Culture - Final Blood-Thru Central Line NO GROWTH AFTER 5 DAYS Gram Stain - Final TEST NOT PERFORMED Lab Studies 07/31/16 07/31/16 07/31/16 Range/Units 05:35 05: 04:40 WBC (4.8-10.8) K/uL RBC (4.40-5.90) Mil/uL Hgb (12.0-18.0) g/dL Hct (35.0-51.0) % MCV (80.0-94.0) fl MCH (27.0-31.0) pg MCHC (33.0-37.0) g/dL RDW (11.5-14.5) % Plt Count (130-400) K/uL PT 12.7 H (9.6-11.2) SECONDS INR 1.22 H (0.92-1.08) APTT 30.1 (23.3-32.5) SECONDS pCO2 43 (35-45) mm/Hg pO2 76 L (80-100) mm/Hg HCO3 27.9 (21-28) mmol/L ABG pH 7.43 (7.35-7.45) ABG Total CO2 29.8 H (22-28) mmol/L ABG O2 Saturation 100.0 H (95-98) % ABG O2 Content 13.1 L (15-23) ML/dL ABG Base Excess 3.8 H (-2.0-3.0) mmol/L ABG Hemoglobin 9.8 L (11.7-17.4) g/dL ABG Carboxyhemoglobin 3.4 H (0.5-1.5) % POC ABG HHb (Measured) 0.0 (0.0-5.0) % ABG Methemoglobin 1.9 (0.0-3.0) % ABG O2 Capacity 13.1 L (16-24) mL/dL Mason Test Yes A-a O2 Difference 155.0 mm/Hg Hgb O2 Saturation 94.7 L (95.0-98.0) % Vent Mode A/c Mechanical Rate 14 FiO2 40.0 % Tidal Volume 500 PEEP 5 Sodium (132-148) mmol/l Potassium (3.6-5.0) MMOL/L Chloride (98-107) mmol/L Carbon Dioxide (22-30) mmol/L Anion Gap (10-20) BUN (9-20) mg/dl Creatinine (0.8-1.5) mg/dL Est GFR ( Amer) Est GFR (Non-Af Amer) POC Glucose (mg/dL) 319 H (65-110) mg/dL Random Glucose (75-110) mg/dL Calcium (8.4-10.2) mg/dL Total Bilirubin (0.2-1.3) mg/dl AST (17-59) U/L ALT (21-72) U/L Alkaline Phosphatase (38-126) U/L Total Protein (6.3-8.2) G/DL Albumin (3.5-5.0) g/dL Globulin (2.2-3.9) gm/dL Albumin/Globulin Ratio (1.0-2.1) Blood Type Antibody Screen Crossmatch BBK History Checked 07/31/16 07/31/16 07/30/16 Range/Units 04:40 04:40 21:52 WBC 10.1 (4.8-10.8) K/uL RBC 3.11 L (4.40-5.90) Mil/uL Hgb 8.5 L (12.0-18.0) g/dL Hct 26.8 L (35.0-51.0) % MCV 86.1 (80.0-94.0) fl MCH 27.2 (27.0-31.0) pg MCHC 31.6 L (33.0-37.0) g/dL RDW 18.1 H (11.5-14.5) % Plt Count 199 (130-400) K/uL PT (9.6-11.2) SECONDS INR (0.92-1.08) APTT (23.3-32.5) SECONDS pCO2 (35-45) mm/Hg pO2 (80-100) mm/Hg HCO3 (21-28) mmol/L ABG pH (7.35-7.45) ABG Total CO2 (22-28) mmol/L ABG O2 Saturation (95-98) % ABG O2 Content (15-23) ML/dL ABG Base Excess (-2.0-3.0) mmol/L ABG Hemoglobin (11.7-17.4) g/dL ABG Carboxyhemoglobin (0.5-1.5) % POC ABG HHb (Measured) (0.0-5.0) % ABG Methemoglobin (0.0-3.0) % ABG O2 Capacity (16-24) mL/dL Mason Test A-a O2 Difference mm/Hg Hgb O2 Saturation (95.0-98.0) % Vent Mode Mechanical Rate FiO2 % Tidal Volume PEEP Sodium 138 (132-148) mmol/l Potassium 4.2 (3.6-5.0) MMOL/L Chloride 101 (98-107) mmol/L Carbon Dioxide 27 (22-30) mmol/L Anion Gap 15 (10-20) BUN 52 H (9-20) mg/dl Creatinine 3.7 H (0.8-1.5) mg/dL Est GFR ( Amer) 19 Est GFR (Non-Af Amer) 16 POC Glucose (mg/dL) 274 H (65-110) mg/dL Random Glucose 337 H (75-110) mg/dL Calcium 7.6 L (8.4-10.2) mg/dL Total Bilirubin 1.3 (0.2-1.3) mg/dl AST 93 H (17-59) U/L ALT 71 (21-72) U/L Alkaline Phosphatase 315 H D (38-126) U/L Total Protein 6.9 (6.3-8.2) G/DL Albumin 2.6 L (3.5-5.0) g/dL Globulin 4.3 H (2.2-3.9) gm/dL Albumin/Globulin Ratio 0.6 L (1.0-2.1) Blood Type Antibody Screen Crossmatch BBK History Checked 07/30/16 07/30/16 07/29/16 Range/Units 17:38 11:02 08:36 WBC (4.8-10.8) K/uL RBC (4.40-5.90) Mil/uL Hgb (12.0-18.0) g/dL Hct (35.0-51.0) % MCV (80.0-94.0) fl MCH (27.0-31.0) pg MCHC (33.0-37.0) g/dL RDW (11.5-14.5) % Plt Count (130-400) K/uL PT (9.6-11.2) SECONDS INR (0.92-1.08) APTT (23.3-32.5) SECONDS pCO2 (35-45) mm/Hg pO2 (80-100) mm/Hg HCO3 (21-28) mmol/L ABG pH (7.35-7.45) ABG Total CO2 (22-28) mmol/L ABG O2 Saturation (95-98) % ABG O2 Content (15-23) ML/dL ABG Base Excess (-2.0-3.0) mmol/L ABG Hemoglobin (11.7-17.4) g/dL ABG Carboxyhemoglobin (0.5-1.5) % POC ABG HHb (Measured) (0.0-5.0) % ABG Methemoglobin (0.0-3.0) % ABG O2 Capacity (16-24) mL/dL Mason Test A-a O2 Difference mm/Hg Hgb O2 Saturation (95.0-98.0) % Vent Mode Mechanical Rate FiO2 % Tidal Volume PEEP Sodium (132-148) mmol/l Potassium (3.6-5.0) MMOL/L Chloride (98-107) mmol/L Carbon Dioxide (22-30) mmol/L Anion Gap (10-20) BUN (9-20) mg/dl Creatinine (0.8-1.5) mg/dL Est GFR ( Amer) Est GFR (Non-Af Amer) POC Glucose (mg/dL) 242 H 352 H (65-110) mg/dL Random Glucose (75-110) mg/dL Calcium (8.4-10.2) mg/dL Total Bilirubin (0.2-1.3) mg/dl AST (17-59) U/L ALT (21-72) U/L Alkaline Phosphatase (38-126) U/L Total Protein (6.3-8.2) G/DL Albumin (3.5-5.0) g/dL Globulin (2.2-3.9) gm/dL Albumin/Globulin Ratio (1.0-2.1) Blood Type O POSITIVE Antibody Screen Negative Crossmatch See Detail BBK History Checked Patient has bt Laboratory Results - last 24 hr 07/29/16 07/30/16 07/30/16 08:36 11:02 17:38 WBC RBC Hgb Hct MCV MCH MCHC RDW Plt Count PT INR APTT pCO2 pO2 HCO3 ABG pH ABG Total CO2 ABG O2 Saturation ABG O2 Content ABG Base Excess ABG Hemoglobin ABG Carboxyhemoglobin POC ABG HHb (Measured) ABG Methemoglobin ABG O2 Capacity Mason Test A-a O2 Difference Hgb O2 Saturation Vent Mode Mechanical Rate FiO2 Tidal Volume PEEP Sodium Potassium Chloride Carbon Dioxide Anion Gap BUN Creatinine Est GFR ( Amer) Est GFR (Non-Af Amer) POC Glucose (mg/dL) 352 H 242 H Random Glucose Calcium Total Bilirubin AST ALT Alkaline Phosphatase Total Protein Albumin Globulin Albumin/Globulin Ratio Blood Type O POSITIVE Antibody Screen Negative Crossmatch See Detail BBK History Checked Patient has bt 07/30/16 07/31/16 07/31/16 21:52 04:40 04:40 WBC 10.1 RBC 3.11 L Hgb 8.5 L Hct 26.8 L MCV 86.1 MCH 27.2 MCHC 31.6 L RDW 18.1 H Plt Count 199 PT INR APTT pCO2 pO2 HCO3 ABG pH ABG Total CO2 ABG O2 Saturation ABG O2 Content ABG Base Excess ABG Hemoglobin ABG Carboxyhemoglobin POC ABG HHb (Measured) ABG Methemoglobin ABG O2 Capacity Mason Test A-a O2 Difference Hgb O2 Saturation Vent Mode Mechanical Rate FiO2 Tidal Volume PEEP Sodium 138 Potassium 4.2 Chloride 101 Carbon Dioxide 27 Anion Gap 15 BUN 52 H Creatinine 3.7 H Est GFR ( Amer) 19 Est GFR (Non-Af Amer) 16 POC Glucose (mg/dL) 274 H Random Glucose 337 H Calcium 7.6 L Total Bilirubin 1.3 AST 93 H ALT 71 Alkaline Phosphatase 315 H D Total Protein 6.9 Albumin 2.6 L Globulin 4.3 H Albumin/Globulin Ratio 0.6 L Blood Type Antibody Screen Crossmatch BBK History Checked 07/31/16 07/31/16 07/31/16 04:40 05:17 05:35 WBC RBC Hgb Hct MCV MCH MCHC RDW Plt Count PT 12.7 H INR 1.22 H APTT 30.1 pCO2 43 pO2 76 L HCO3 27.9 ABG pH 7.43 ABG Total CO2 29.8 H ABG O2 Saturation 100.0 H ABG O2 Content 13.1 L ABG Base Excess 3.8 H ABG Hemoglobin 9.8 L ABG Carboxyhemoglobin 3.4 H POC ABG HHb (Measured) 0.0 ABG Methemoglobin 1.9 ABG O2 Capacity 13.1 L Mason Test Yes A-a O2 Difference 155.0 Hgb O2 Saturation 94.7 L Vent Mode A/c Mechanical Rate 14 FiO2 40.0 Tidal Volume 500 PEEP 5 Sodium Potassium Chloride Carbon Dioxide Anion Gap BUN Creatinine Est GFR ( Amer) Est GFR (Non-Af Amer) POC Glucose (mg/dL) 319 H Random Glucose Calcium Total Bilirubin AST ALT Alkaline Phosphatase Total Protein Albumin Globulin Albumin/Globulin Ratio Blood Type Antibody Screen Crossmatch BBK History Checked Fingerstick Blood Sugar Results: 319 Review of Systems - Review of Systems Systems not reviewed;Unavailable: Intubated Assessment/Plan - Assessment and Plan (Free Text) Assessment: 80 y/o with PMH including HTN, DM2, Hyperlipidemia, Morbid obesity, CKD Stage IV presented to [facility] for 2 weeks of progressive abdominal pain, lower extremity erythema and generalized malaise. He was subsequently admitted for lower extremity cellulitis, possible cholecystitis and acute on chronic CKD associated with multiple electrolyte abnormalities. During admission, patient had signs of lethargy and was sent for CT Head and Chest, during which an BALL SHAGGER was called. BALL SHAGGER converted to code blue for cardiac/respiratory arrest. Patient was coded for 10 minutes and was intubated, with return of spontaneous circulation. Patient was then transferred to ICU on 07/14/16. Since then, patient has been intubated, unresponsive and septic. 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 He again had a code blue called on 07/28/16 and was resuscitated with epinephrine and atropine. Current ICU day 18. Plan: Anoxic Brain Injury -Secondary to cardiac arrest for over 10 minutes with hypoxemia on 07/14/16 and again on 07/28/16 -Absent pupillary response. Corneal reflex present. Dolls eyes negative. Gag reflex absent however carinal reflex can be elicited. -Patient is not brain due to preserved brain stem functions, however remains in vegetative state -Pending family decision regarding tracheostomy and PEG -Continue neuro checks -Neurology consulted, requesting repeat CT Head due to recent code Acute Respiratory Failure -Etiology possibly secondary to aspiration pneumonia? -Patient intubated on 07/14/16 due to cardiac/respiratory arrest -Currently on mechanical ventilation, day 18 -Current Vent settings: 14/500/5/40%, Patient satting between 98-99% -Possible tracheostomy based on family decision Septic shock, with Strep Anginosus Bacteremia -Etiology secondary to GI vs Aspiration pneumonia -Afebrile overnight. WBC: 10.1 -Last fever: 100.6F on 07/28 @23:38 -On levophed 12.5mcg/min. Will attempt decrease as tolerated -Blood culture from 07/09 detected strep anginosus sensitive to Vancomycin -Repeat blood cultures obtained from IJ during dialysis and femoral line on both revealed no growth, final -On empiric abx: Vancomycin 1gm IV Q72h (Since 07/13) and Zosyn 2.25 gm IV Q8h ( Started 07/11, day 21) Cefepime 1gm IV daily(Started 07/25, day 7) -Yeast species detected on tracheal aspirate. Micafungin started on 07/27, current day 5 Acute on Chronic Kidney Failure -Has been following with nephrology, Dr Morse as outpatient -BUN/Cr: 52/3.7 -Started on HD during admission, which patient has been receiving on MWF schedule. Nephro recently added additional dialysis for Saturdays -Received dialysis yesterday Anemia of Chronic Disease -S/P 2units pRBC yesterday -H/H improved: 6.6/21.4 > 8.5/26.8 Paroxysmal Atrial Fibrillation -Has had several episodes of afib during dialysis which resolved with amiodarone. -Rate controlled. Sinus rhythm today. Will monitor. Feeds -Nepro via OGT DVT Prophylaxis -Heparin 5,000units SC Q8H Code Status -Full code <[email or web address] Opal - Last Filed: 07/31/16 16:38> CCU Subjective - Physician Review Subjective (Free Text): Attestation: Patient seen and examined at the bedside with Resident Dr. Sung Garcia; and I agree with his outline of plans and management documented as discussed on AM rounds reflecting my review of all applicable clinical data, and participation in the care of the patient throughout the day in ICU; today, July 31, 2016.
[2016-07-31] MEDS: Cefepime 1 GM in Sodium Chloride 0.9% 100 ML IVPB SCH (13:00)
--- NOTE | 2016-07-31 13:31 | RAD ---
PROCEDURE: HISTORY: ETT placement COMPARISON: 07/30/2016 TECHNIQUE: FINDINGS: New ETT above the chandrakant. Otherwise no significant interval change in CHF. No interval change in additional tubes and catheters. IMPRESSION: As above.
--- NOTE | 2016-07-31 19:33 | CP.PCM.PN ---
Subjective - Date & Time of Evaluation Date of Evaluation: 07/31/16 Time of Evaluation: 14:00 - Subjective Subjective: SEEN 0N RENAL F/U IN ICU HAD HD YESTERDAY .. BOJORQUEZ 2U PRBC YESTERDAY NO CHANGE IN CLINICAL CONDITION REMAIN INTUBATED ORAL .. ON VENT ON PRESSORS Objective - Vital Signs/Intake and Output Vital Signs (last 24 hours): Temp Pulse Resp BP Pulse Ox 98.8 F 76 24 107/75 97 07/31/16 16:00 07/31/16 18:00 07/31/16 18:00 07/31/16 18:00 07/31/16 18:00 Intake and Output: 07/31/16 08/01/16 18:59 06:59 Intake Total 1538 Balance 1538 - Medications Medications: Current Medications Acetaminophen (Tylenol 650mg/20.3ml Solution Ud) 650 mg PO Q6 PRN PRN Reason: fever Last Admin: 07/28/16 23:38 Dose: 650 mg Acetaminophen (Tylenol 325mg Tab) 650 mg PO Q6H PRN PRN Reason: Pain, moderate (4-7) Allopurinol (Zyloprim) 100 mg PO DAILY [facility] Last Admin: 07/31/16 10:19 Dose: 100 mg Artificial Tears (Artificial Tears) 2 drop OU Q6 PRN PRN Reason: Dry eyes Last Admin: 07/30/16 08:25 Dose: 2 drop Ascorbic Acid (Vitamin C 500 Mg Tab) 1,000 mg PO DAILY [facility] Last Admin: 07/31/16 10:18 Dose: 1,000 mg Bismuth Subsalicylate (Pepto-Bismol) 524 mg PO Q6H PRN PRN Reason: Diarrhea Carvedilol (Coreg) 12.5 mg PO BID [facility] Last Admin: 07/31/16 16:31 Dose: 12.5 mg Dextrose (Dextrose 50% Inj) 0 ml IVP STAT PRN; Protocol PRN Reason: Hypoglycemia Protocol Ezetimibe (Zetia) 10 mg PO HS [facility] Last Admin: 07/30/16 21:53 Dose: 10 mg Epoetin Jameel (Procrit) 4,000 unit SC MWF [facility] Last Admin: 07/30/16 14:44 Dose: 4,000 unit Ergocalciferol (Drisdol 50,000 Intl Units Cap) 1 cap PO QWK [facility] Glucagon (Glucagen Diagnostic Kit) 0 mg IM STAT PRN; Protocol PRN Reason: Hypoglycemia Protocol Heparin Sodium (Porcine) (Heparin) 5,000 units SC Q8 MARIA GUADALUPE PRN Reason: Protocol Last Admin: 07/31/16 16:32 Dose: 5,000 units Vancomycin HCl 1 gm/ Sodium (Chloride) 250 mls @ 166.667 mls/hr IVPB MWF [facility] Last Admin: 07/30/16 14:45 Dose: 166.667 mls/hr Micafungin Sodium 100 mg/ (Sodium Chloride) 100 mls @ 100 mls/hr IVPB DAILY [facility] Last Admin: 07/31/16 08:56 Dose: 100 mls/hr Cefepime HCl 1 gm/ Sodium (Chloride) 100 mls @ 100 mls/hr IVPB DAILY [facility] Last Admin: 07/31/16 13:00 Dose: 100 mls/hr Piperacillin Sod/Tazobactam (Sod 2.25 gm/ Sodium Chloride) 100 mls @ 100 mls/ hr IVPB Q8 [facility] Last Admin: 07/31/16 16:41 Dose: 100 mls/hr Insulin Detemir (Levemir) 25 units SC HS [facility] Last Admin: 07/30/16 21:52 Dose: 25 units Insulin Human Regular (Humulin R) 0 units SC ACHS [facility] PRN Reason: Protocol Last Admin: 07/31/16 16:33 Dose: 8 units Midodrine (Proamatine) 10 mg PO Q8H [facility] Last Admin: 07/31/16 13:00 Dose: 10 mg Pantoprazole Sodium (Protonix Susp) 40 mg PO DAILY [facility] Last Admin: 07/31/16 10:16 Dose: 40 mg Sevelamer Carbonate (Renvela) 0.8 gm PO TID [facility] Last Admin: 07/31/16 16:39 Dose: 0.8 gm Sitagliptin Phosphate (Januvia) 25 mg PO DAILY [facility] Last Admin: 07/31/16 08:55 Dose: 25 mg Tamsulosin HCl (Flomax) 0.4 mg PO DAILY [facility] Last Admin: 07/31/16 08:54 Dose: 0.4 mg Vitamin B Complex/Vit C/Folic Acid (Nephro-Carlitos) 1 tab PO DAILY [facility] Last Admin: 07/31/16 08:56 Dose: 1 tab - Labs Labs: 07/31/16 04:40 07/31/16 04:40 PT 12.7 SECONDS (9.6-11.2) H 07/31/16 04:40 INR 1.22 (0.92-1.08) H 07/31/16 04:40 APTT 30.1 SECONDS (23.3-32.5) 07/31/16 04:40 Assessment and Plan - Assessment and Plan (Free Text) Assessment: A ON CKD .. FOR HD IN AM SEPSIS ON IVAB C/O CURRENT CARE
[2016-08-01 05:24] LABS: ABG ALLEN TEST YES; ABG MECHANICAL RATE 14; ARTERIAL BLOOD GAS HCO3 27.1 mmol/L (21-28); ARTERIAL BLOOD GAS MODE PRVC/AC; ARTERIAL BLOOD GAS O2 CAPACITY 11.5 mL/dL (16-24); ARTERIAL BLOOD GAS O2 CONTENT 11.3 ML/dL (15-23); ARTERIAL BLOOD GAS PH 7.44 (7.35-7.45); ARTERIAL BLOOD GAS PO2 73 mm/Hg (80-100); ARTERIAL BLOOD HGB O2 SAT 94.5 % (95.0-98.0); ATERIAL BLOOD GAS PEEP 5; CARBOXYHEMOGLOBIN 2.3 % (0.5-1.5); HHB 1.9 % (0.0-5.0); METHEMOGLOBIN 1.3 % (0.0-3.0)
[2016-08-01 05:25] LABS: HEMATOCRIT 25.4 % (35.0-51.0); MEAN CELL VOLUME 86.2 fl (80.0-94.0); MEAN CORPUSCULAR HEMOGLOBIN 27.7 pg (27.0-31.0); MEAN CORPUSCULAR HGB CONC 32.1 g/dL (33.0-37.0); RED CELL DISTRIBUTION WIDTH 17.9 % (11.5-14.5); WHITE BLOOD COUNT 9.2 K/uL (4.8-10.8)
[2016-08-01 05:40] LABS: ALB/GLOB RATIO 0.6 (1.0-2.1); BILIRUBIN,TOTAL 1.4 mg/dl (0.2-1.3); CALCIUM 7.6 mg/dL (8.4-10.2); POTASSIUM 4.3 MMOL/L (3.6-5.0); TOTAL PROTEIN 6.7 G/DL (6.3-8.2)
[2016-08-01] MEDS: Insulin Regular 100 units/ml SC SCH ×4 (06:43→21:42)
--- NOTE | 2016-08-01 08:41 | CP.PCM.PN ---
<Mary Britton - Last Filed: 08/01/16 08:38> Subjective - Date & Time of Evaluation Date of Evaluation: 08/01/16 Time of Evaluation: 08:38 - Subjective Subjective: d/w attending. overnight events none. no eye movement, no extremity movement to command, no painful stimuli response. no ROS d/t lack of verbal response. HD today Objective - Vital Signs/Intake and Output Vital Signs (last 24 hours): Temp Pulse Resp BP Pulse Ox 99.4 F 79 20 106/62 100 08/01/16 08:00 08/01/16 08:00 08/01/16 08:00 08/01/16 08:00 08/01/16 08:00 Intake and Output: 08/01/16 08/01/16 06:59 18:59 Intake Total 760 Output Total 0 Balance 760 - Medications Medications: Current Medications Acetaminophen (Tylenol 650mg/20.3ml Solution Ud) 650 mg PO Q6 PRN PRN Reason: fever Last Admin: 07/28/16 23:38 Dose: 650 mg Acetaminophen (Tylenol 325mg Tab) 650 mg PO Q6H PRN PRN Reason: Pain, moderate (4-7) Allopurinol (Zyloprim) 100 mg PO DAILY [facility] Last Admin: 07/31/16 10:19 Dose: 100 mg Artificial Tears (Artificial Tears) 2 drop OU Q6 PRN PRN Reason: Dry eyes Last Admin: 07/30/16 08:25 Dose: 2 drop Ascorbic Acid (Vitamin C 500 Mg Tab) 1,000 mg PO DAILY [facility] Last Admin: 07/31/16 10:18 Dose: 1,000 mg Bismuth Subsalicylate (Pepto-Bismol) 524 mg PO Q6H PRN PRN Reason: Diarrhea Carvedilol (Coreg) 12.5 mg PO BID [facility] Last Admin: 07/31/16 16:31 Dose: 12.5 mg Dextrose (Dextrose 50% Inj) 0 ml IVP STAT PRN; Protocol PRN Reason: Hypoglycemia Protocol Ezetimibe (Zetia) 10 mg PO HS [facility] Last Admin: 07/31/16 22:06 Dose: 10 mg Epoetin Jameel (Procrit) 4,000 unit SC MWF [facility] Last Admin: 07/30/16 14:44 Dose: 4,000 unit Ergocalciferol (Drisdol 50,000 Intl Units Cap) 1 cap PO QWK [facility] Glucagon (Glucagen Diagnostic Kit) 0 mg IM STAT PRN; Protocol PRN Reason: Hypoglycemia Protocol Heparin Sodium (Porcine) (Heparin) 5,000 units SC Q8 [facility] PRN Reason: Protocol Last Admin: 08/01/16 02:04 Dose: 5,000 units Vancomycin HCl 1 gm/ Sodium (Chloride) 250 mls @ 166.667 mls/hr IVPB MWF [facility] Last Admin: 07/30/16 14:45 Dose: 166.667 mls/hr Micafungin Sodium 100 mg/ (Sodium Chloride) 100 mls @ 100 mls/hr IVPB DAILY [facility] Last Admin: 07/31/16 08:56 Dose: 100 mls/hr Cefepime HCl 1 gm/ Sodium (Chloride) 100 mls @ 100 mls/hr IVPB DAILY [facility] Last Admin: 07/31/16 13:00 Dose: 100 mls/hr Piperacillin Sod/Tazobactam (Sod 2.25 gm/ Sodium Chloride) 100 mls @ 100 mls/ hr IVPB Q8 [facility] Last Admin: 08/01/16 02:05 Dose: 100 mls/hr Insulin Detemir (Levemir) 25 units SC HS [facility] Last Admin: 08/01/16 00:00 Dose: 25 units Insulin Human Regular (Humulin R) 0 units SC ACHS [facility] PRN Reason: Protocol Last Admin: 08/01/16 06:43 Dose: 8 units Midodrine (Proamatine) 10 mg PO Q8H [facility] Last Admin: 08/01/16 05:30 Dose: 10 mg Pantoprazole Sodium (Protonix Susp) 40 mg PO DAILY [facility] Last Admin: 07/31/16 10:16 Dose: 40 mg Sevelamer Carbonate (Renvela) 0.8 gm PO TID [facility] Last Admin: 07/31/16 16:39 Dose: 0.8 gm Sitagliptin Phosphate (Januvia) 25 mg PO DAILY [facility] Last Admin: 07/31/16 08:55 Dose: 25 mg Tamsulosin HCl (Flomax) 0.4 mg PO DAILY [facility] Last Admin: 07/31/16 08:54 Dose: 0.4 mg Vitamin B Complex/Vit C/Folic Acid (Nephro-Carlitos) 1 tab PO DAILY [facility] Last Admin: 07/31/16 08:56 Dose: 1 tab - Labs Labs: 08/01/16 04:20 08/01/16 04:20 PT 12.7 SECONDS (9.6-11.2) H 07/31/16 04:40 INR 1.22 (0.92-1.08) H 07/31/16 04:40 APTT 30.1 SECONDS (23.3-32.5) 07/31/16 04:40 - Constitutional Appears: Non-toxic - Head Exam Head Exam: NORMAL INSPECTION - Eye Exam Pupil Exam: Fixed - Respiratory Exam Respiratory Exam: NORMAL BREATHING PATTERN Additional comments: intubated - Cardiovascular Exam Cardiovascular Exam: REGULAR RHYTHM - GI/Abdominal Exam GI & Abdominal Exam: Soft - Extremities Exam Extremities Exam: Normal Capillary Refill, Pedal Edema - Neurological Exam Neurological Exam: absent: Alert, Awake, Oriented x3 Additional comments: -GCS 2, E1V(T)M1 - Skin Skin Exam: Dry, Warm Assessment and Plan - Assessment and Plan (Free Text) Assessment: 80yo M with PMHx HTN, diabetes, prostate BPH and CKD admitted for acute on chronic kidney injury, cellulitis. Currently in ICU for bacteremia with anoxic brain injury on ventilator and unresponsive. Full code. HD today. Poor prognosis. cardiac arrest -Cardio on board, appreciate input -neuro on board, appreciate input -composer teaching artist on board, appreciate input -full code respiratory failure -Cardio on board, appreciate input -neuro on board, appreciate input -composer teaching artist on board, appreciate input -surgery on board, appreciate input. possible trach -intubated AC 40% bacteremia -2/2 cellulitis, PNA, or other source. h/o cath placement -blood cx: S anginosus/constellatus -ID on board, appreciate input -Cefepime, Micafungin, Vanc, Zosyn -pressors aspiration PNA -CXR 07/30/16: b/l infiltrates -ID on board, appreciate input -intubated MV 50% -Cefepime, Micafungin, Vanc, Zosyn pAfib -Cardio on board, appreciate input -coreg -amiodarone acute on CKD -HD -Nephro on board, appreciate input cellulitis -Cefepime, Micafungin, Vanc, Zosyn -ID on board, appreciate input -podiatry on board, appreciate input anoxic brain injury -GCS 2, E1V(T)M1 -2/2 renal failure, sepsis, or cardiorenal syndrome -CT head x2 no acute change -neuro on board, appreciate input -intubated AC 14/5/40% anemia -EPO -FOBT neg -Nephro on board, appreciate input anasarca -low albumin -monitor -HD -Nephro on board, appreciate input HTN -coreg HLD -statin -zetia DM -held linagliptin, pioglitazone -januvia -levemir -SSI -accuchecks DVT ppx -heparin Dispo: likely LTAC after trach placement and stable for transfer Code: full <Tang Solorio K - Last Filed: 08/01/16 18:00> Objective - Vital Signs/Intake and Output Vital Signs (last 24 hours): Temp Pulse Resp BP Pulse Ox 98.8 F 74 21 97/61 L 99 08/01/16 16:00 08/01/16 17:55 08/01/16 17:55 08/01/16 17:55 08/01/16 17:55 Intake and Output: 08/01/16 08/01/16 06:59 18:59 Intake Total 760 1334 Output Total 0 500 Balance 760 834 - Medications Medications: Current Medications Acetaminophen (Tylenol 650mg/20.3ml Solution Ud) 650 mg PO Q6 PRN PRN Reason: fever Last Admin: 07/28/16 23:38 Dose: 650 mg Acetaminophen (Tylenol 325mg Tab) 650 mg PO Q6H PRN PRN Reason: Pain, moderate (4-7) Allopurinol (Zyloprim) 100 mg PO DAILY [facility] Last Admin: 08/01/16 16:37 Dose: 100 mg Artificial Tears (Artificial Tears) 2 drop OU Q6 PRN PRN Reason: Dry eyes Last Admin: 08/01/16 08:46 Dose: 2 drop Ascorbic Acid (Vitamin C 500 Mg Tab) 1,000 mg PO DAILY [facility] Last Admin: 08/01/16 16:35 Dose: 1,000 mg Bismuth Subsalicylate (Pepto-Bismol) 524 mg PO Q6H PRN PRN Reason: Diarrhea Carvedilol (Coreg) 12.5 mg PO BID [facility] Last Admin: 08/01/16 16:32 Dose: 12.5 mg Dextrose (Dextrose 50% Inj) 0 ml IVP STAT PRN; Protocol PRN Reason: Hypoglycemia Protocol Ezetimibe (Zetia) 10 mg PO [facility] Last Admin: 07/31/16 22:06 Dose: 10 mg Epoetin Jameel (Procrit) 4,000 unit SC MWF [facility] Last Admin: 08/01/16 08:50 Dose: 4,000 unit Ergocalciferol (Drisdol 50,000 Intl Units Cap) 1 cap PO QWK [facility] Glucagon (Glucagen Diagnostic Kit) 0 mg IM STAT PRN; Protocol PRN Reason: Hypoglycemia Protocol Heparin Sodium (Porcine) (Heparin) 5,000 units SC Q8 [facility] PRN Reason: Protocol Last Admin: 08/01/16 16:32 Dose: 5,000 units Vancomycin HCl 1 gm/ Sodium (Chloride) 250 mls @ 166.667 mls/hr IVPB MWF [facility] Last Admin: 08/01/16 08:51 Dose: 166.667 mls/hr Micafungin Sodium 100 mg/ (Sodium Chloride) 100 mls @ 100 mls/hr IVPB DAILY [facility] Last Admin: 08/01/16 08:49 Dose: 100 mls/hr Cefepime HCl 1 gm/ Sodium (Chloride) 100 mls @ 100 mls/hr IVPB DAILY [facility] Last Admin: 08/01/16 08:48 Dose: 100 mls/hr Piperacillin Sod/Tazobactam (Sod 2.25 gm/ Sodium Chloride) 100 mls @ 100 mls/ hr IVPB Q8 [facility] Last Admin: 08/01/16 16:36 Dose: 100 mls/hr Insulin Detemir (Levemir) 25 units SC [facility] Last Admin: 08/01/16 00:00 Dose: 25 units Insulin Human Regular (Humulin R) 0 units SC ACHS [facility] PRN Reason: Protocol Last Admin: 08/01/16 16:33 Dose: Not Given Midodrine (Proamatine) 10 mg PO Q8H [facility] Last Admin: 08/01/16 16:34 Dose: 10 mg Pantoprazole Sodium (Protonix Susp) 40 mg PO DAILY [facility] Last Admin: 08/01/16 16:34 Dose: 40 mg Sevelamer Carbonate (Renvela) 0.8 gm PO TID [facility] Last Admin: 08/01/16 16:35 Dose: 0.8 gm Sitagliptin Phosphate (Januvia) 25 mg PO DAILY [facility] Last Admin: 08/01/16 16:34 Dose: 25 mg Tamsulosin HCl (Flomax) 0.4 mg PO DAILY [facility] Last Admin: 08/01/16 16:32 Dose: 0.4 mg Vitamin B Complex/Vit C/Folic Acid (Nephro-Carlitos) 1 tab PO DAILY [facility] Last Admin: 08/01/16 16:34 Dose: 1 tab - Labs Labs: 08/01/16 04:20 08/01/16 04:20 PT 12.7 SECONDS (9.6-11.2) H 07/31/16 04:40 INR 1.22 (0.92-1.08) H 07/31/16 04:40 APTT 30.1 SECONDS (23.3-32.5) 07/31/16 04:40 Assessment and Plan - Assessment and Plan (Free Text) Assessment: Patient seen and examined with residents in rounds. Case, condition, investigative work up and plan discussed in detail. Agree with residents progress note. Plan: As ordered. (Tang Solorio MD)
[2016-08-01] MEDS: Artificial Tears Opht Soln OU PRN (08:46)
[2016-08-01] MEDS: Cefepime 1 GM in Sodium Chloride 0.9% 100 ML IVPB SCH (08:48)
[2016-08-01] MEDS: Micafungin 100 MG in Sodium Chloride 0.9% 100 ML IVPB SCH (08:49)
[2016-08-01] MEDS: Epoetin Alfa 4000 UNIT/ML Inj SC SCH (08:50)
[2016-08-01] MEDS: Sevelamer Carb 0.8 gm/Packet PO SCH ×3 (08:51→16:35)
--- NOTE | 2016-08-01 11:19 | CP.CCUPN ---
<Cee Garcia - Last Filed: 08/01/16 11:16> CCU Subjective - Physician Review Subjective (Free Text): 08/01/16 11:16 Patient seen and examined at bedside with ICU attending during morning rounds. He was weaned from pressors yesterday and overnight and has been afebrile. He remains on mechanical ventilation, satting at 99% on settings of 14/500/5/40%. Patient is unresponsive to verbal or physical stimuli. Full code status. CCU Objective - Vital Signs / Intake & Output Vital Signs (Last 4 hours): Vital Signs Temp Pulse Resp BP Pulse Ox 08/01/16 10:00 79 23 99/56 L 100 08/01/16 08:47 78 105/52 L 08/01/16 08:00 99.4 F 79 20 106/62 100 Intake and Output (Last 8hrs): Intake & Output 07/31/16 08/01/16 08/01/16 22:59 06:59 14:59 Intake Total 1450 540 550 Output Total 0 0 Balance 1450 540 550 Intake: IV 250 Intake, Piggyback 300 100 550 Oral 220 440 Tube Feeding 660 Free Water Flush 20 Output: Stool 0 0 Emesis 0 - Physical Exam Head: Positive for: Atraumatic, Normocephalic Pupils: Positive for: Non-Reactive Extroacular Muscles: Negative for: EOMI Conjunctiva: Negative for: Injected, Icteric Neck: Positive for: Other (Right IJ HD catheter site clean, dry, with no signs of erythema.) Respiratory/Chest: Positive for: Other (Intubated, on mechanical ventilation. B/ L air entry present but decreased at left lung cortez and lung bases. Scattered crackles present b/l.). Negative for: Wheezes Cardiovascular: Positive for: Regular Rate and Rhythm. Negative for: Murmurs Abdomen: Positive for: Normal Bowel Sounds. Negative for: Tenderness, Distention Genitourinary Male: Positive for: Other (Right groin TLC site clean, dry, with no surrounding erythema. ) Upper Extremity: Positive for: Edema (B/L upper extremity edema), Other ( Generalized anasarca which has remained stable compared to prior assessments) Lower Extremity: Positive for: Edema (2+ b/l LE), Other (Lower extremity YADIRA dressings.) Neurological: Positive for: Other (Unresponsive to verbal or painful stimuli. Pupils fixed. Corneal reflex present with occasional spontaneous blink. Corinal reflex present. No gag reflex. Not moving extremities. Occassionally moving head from sided to side.). Negative for: CN II-XII Intact Psychiatric: Negative for: Alert - Medications Active Medications: Active Medications Generic Name Dose Route Start Last Admin Trade Name Freq PRN Reason Stop Dose Admin Acetaminophen 650 mg 07/26/16 03:55 07/28/16 23:38 Tylenol 650mg/20.3ml Solution Ud PO 650 mg Q6 PRN Administration fever Acetaminophen 650 mg 07/29/16 10:45 Tylenol 325mg Tab PO Q6H PRN Pain, moderate (4-7) Allopurinol 100 mg 07/19/16 09:00 07/31/16 10:19 Zyloprim PO 100 mg DAILY MARIA GUADALUPE Administration Artificial Tears 2 drop 07/26/16 16:18 08/01/16 08:46 Artificial Tears OU 2 drop Q6 PRN Administration Dry eyes Ascorbic Acid 1,000 mg 07/23/16 09:00 07/31/16 10:18 Vitamin C 500 Mg Tab PO 1,000 mg DAILY MARIA GUADALUPE Administration Bismuth Subsalicylate 524 mg 07/18/16 20:13 Pepto-Bismol PO Q6H PRN Diarrhea Carvedilol 12.5 mg 07/19/16 09:00 08/01/16 08:47 Coreg PO Not Given BID MARIA GUADALUPE Dextrose 0 ml 07/18/16 20:13 Dextrose 50% Inj IVP STAT PRN Hypoglycemia Protocol Protocol Ezetimibe 10 mg 07/18/16 22:00 07/31/16 22:06 Zetia PO 10 mg HS MARIA GUADALUPE Administration Epoetin Jameel 4,000 unit 07/28/16 09:00 08/01/16 08:50 Procrit SC 4,000 unit MWF MARIA GUADALUPE Administration Ergocalciferol 1 cap 07/18/16 20:13 Drisdol 50,000 Intl Units Cap PO QWK MARIA GUADALUPE Glucagon 0 mg 07/18/16 20:13 Glucagen Diagnostic Kit IM STAT PRN Hypoglycemia Protocol Protocol Heparin Sodium (Porcine) 5,000 units 07/29/16 17:00 08/01/16 08:48 Heparin SC 5,000 units Q8 MARIA GUADALUPE Administration Protocol Vancomycin HCl 1 gm/ Sodium 250 mls @ 166.667 mls/hr 07/28/16 09:00 08/01/16 08:51 Chloride IVPB 166.667 mls/hr MWF MARIA GUADALUPE Administration Micafungin Sodium 100 mg/ 100 mls @ 100 mls/hr 07/27/16 13:45 08/01/16 08:49 Sodium Chloride IVPB 100 mls/hr DAILY MAR[facility] GUADALUPE Administration Cefepime HCl 1 gm/ Sodium 100 mls @ 100 mls/hr 07/31/16 11:00 08/01/16 08:48 Chloride IVPB 100 mls/hr DAILY MARIA GUADALUPE Administration Piperacillin Sod/Tazobactam 100 mls @ 100 mls/hr 07/31/16 11:00 08/01/16 08: 52 Sod 2.25 gm/ Sodium Chloride IVPB 100 mls/hr Q8 MARIA GUADALUPE Administration Insulin Detemir 25 units 07/18/16 22:00 08/01/16 00:00 Levemir SC 25 units HS MARIA GUADALUPE Administration Insulin Human Regular 0 units 07/19/16 06:45 08/01/16 06:43 Humulin R SC 8 units ACHS MARIA GUADALUPE Administration Protocol Midodrine 10 mg 07/29/16 20:30 08/01/16 05:30 Proamatine PO 10 mg Q8H MARIA GUADALUPE Administration Pantoprazole Sodium 40 mg 07/29/16 11:00 07/31/16 10:16 Protonix Susp PO 40 mg DAILY MARIA GUADALUPE Administration Sevelamer Carbonate 0.8 gm 07/19/16 09:00 08/01/16 08:51 Renvela PO Not Given TID MARIA GUADALUPE Sitagliptin Phosphate 25 mg 07/19/16 09:00 07/31/16 08:55 Januvia PO 25 mg DAILY MARIA GUADALUPE Administration Tamsulosin HCl 0.4 mg 07/19/16 09:00 07/31/16 08:54 Flomax PO 0.4 mg DAILY MARIA GUADALUPE Administration Vitamin B Complex/Vit C/Folic Acid 1 tab 07/23/16 09:00 07/31/16 08:56 Nephro-Carlitos PO 1 tab DAILY MARIA GUADALUPE Administration - Patient Studies Lab Studies: Lab Studies 08/01/16 08/01/16 08/01/16 Range/Units 11:05 05:11 04:26 WBC (4.8-10.8) K/uL RBC (4.40-5.90) Mil/uL Hgb (12.0-18.0) g/dL Hct (35.0-51.0) % MCV (80.0-94.0) fl MCH (27.0-31.0) pg MCHC (33.0-37.0) g/dL RDW (11.5-14.5) % Plt Count (130-400) K/uL pCO2 40 (35-45) mm/Hg pO2 73 L (80-100) mm/Hg HCO3 27.1 (21-28) mmol/L ABG pH 7.44 (7.35-7.45) ABG Total CO2 28.4 H (22-28) mmol/L ABG O2 Saturation 98.0 (95-98) % ABG O2 Content 11.3 L (15-23) ML/dL ABG Base Excess 2.8 (-2.0-3.0) mmol/L ABG Hemoglobin 8.4 L (11.7-17.4) g/dL ABG Carboxyhemoglobin 2.3 H (0.5-1.5) % POC ABG HHb (Measured) 1.9 (0.0-5.0) % ABG Methemoglobin 1.3 (0.0-3.0) % ABG O2 Capacity 11.5 L (16-24) mL/dL Mason Test Yes A-a O2 Difference 162.0 mm/Hg Hgb O2 Saturation 94.5 L (95.0-98.0) % Vent Mode Prvc/ac Mechanical Rate 14 FiO2 40.0 % Tidal Volume 500 PEEP 5 Sodium (132-148) mmol/l Potassium (3.6-5.0) MMOL/L Chloride (98-107) mmol/L Carbon Dioxide (22-30) mmol/L Anion Gap (10-20) BUN (9-20) mg/dl Creatinine (0.8-1.5) mg/dL Est GFR ( Amer) Est GFR (Non-Af Amer) POC Glucose (mg/dL) 153 H 313 H (65-110) mg/dL Random Glucose (75-110) mg/dL Calcium (8.4-10.2) mg/dL Total Bilirubin (0.2-1.3) mg/dl AST (17-59) U/L ALT (21-72) U/L Alkaline Phosphatase (38-126) U/L Total Protein (6.3-8.2) G/DL Albumin (3.5-5.0) g/dL Globulin (2.2-3.9) gm/dL Albumin/Globulin Ratio (1.0-2.1) 08/01/16 08/01/16 07/31/16 Range/Units 04:20 04:20 23:34 WBC 9.2 (4.8-10.8) K/uL RBC 2.94 L (4.40-5.90) Mil/uL Hgb 8.2 L (12.0-18.0) g/dL Hct 25.4 L (35.0-51.0) % MCV 86.2 (80.0-94.0) fl MCH 27.7 (27.0-31.0) pg MCHC 32.1 L (33.0-37.0) g/dL RDW 17.9 H (11.5-14.5) % Plt Count 208 (130-400) K/uL pCO2 (35-45) mm/Hg pO2 (80-100) mm/Hg HCO3 (21-28) mmol/L ABG pH (7.35-7.45) ABG Total CO2 (22-28) mmol/L ABG O2 Saturation (95-98) % ABG O2 Content (15-23) ML/dL ABG Base Excess (-2.0-3.0) mmol/L ABG Hemoglobin (11.7-17.4) g/dL ABG Carboxyhemoglobin (0.5-1.5) % POC ABG HHb (Measured) (0.0-5.0) % ABG Methemoglobin (0.0-3.0) % ABG O2 Capacity (16-24) mL/dL Mason Test A-a O2 Difference mm/Hg Hgb O2 Saturation (95.0-98.0) % Vent Mode Mechanical Rate FiO2 % Tidal Volume PEEP Sodium 139 (132-148) mmol/l Potassium 4.3 (3.6-5.0) MMOL/L Chloride 101 (98-107) mmol/L Carbon Dioxide 26 (22-30) mmol/L Anion Gap 16 (10-20) BUN 68 H (9-20) mg/dl Creatinine 4.5 H (0.8-1.5) mg/dL Est GFR ( Amer) 15 Est GFR (Non-Af Amer) 13 POC Glucose (mg/dL) 279 H (65-110) mg/dL Random Glucose 303 H (75-110) mg/dL Calcium 7.6 L (8.4-10.2) mg/dL Total Bilirubin 1.4 H (0.2-1.3) mg/dl AST 73 H D (17-59) U/L ALT 62 (21-72) U/L Alkaline Phosphatase 308 H (38-126) U/L Total Protein 6.7 (6.3-8.2) G/DL Albumin 2.5 L (3.5-5.0) g/dL Globulin 4.2 H (2.2-3.9) gm/dL Albumin/Globulin Ratio 0.6 L (1.0-2.1) 07/31/16 07/31/16 Range/Units 16:15 11:23 WBC (4.8-10.8) K/uL RBC (4.40-5.90) Mil/uL Hgb (12.0-18.0) g/dL Hct (35.0-51.0) % MCV (80.0-94.0) fl MCH (27.0-31.0) pg MCHC (33.0-37.0) g/dL RDW (11.5-14.5) % Plt Count (130-400) K/uL pCO2 (35-45) mm/Hg pO2 (80-100) mm/Hg HCO3 (21-28) mmol/L ABG pH (7.35-7.45) ABG Total CO2 (22-28) mmol/L ABG O2 Saturation (95-98) % ABG O2 Content (15-23) ML/dL ABG Base Excess (-2.0-3.0) mmol/L ABG Hemoglobin (11.7-17.4) g/dL ABG Carboxyhemoglobin (0.5-1.5) % POC ABG HHb (Measured) (0.0-5.0) % ABG Methemoglobin (0.0-3.0) % ABG O2 Capacity (16-24) mL/dL Mason Test A-a O2 Difference mm/Hg Hgb O2 Saturation (95.0-98.0) % Vent Mode Mechanical Rate FiO2 % Tidal Volume PEEP Sodium (132-148) mmol/l Potassium (3.6-5.0) MMOL/L Chloride (98-107) mmol/L Carbon Dioxide (22-30) mmol/L Anion Gap (10-20) BUN (9-20) mg/dl Creatinine (0.8-1.5) mg/dL Est GFR ( Amer) Est GFR (Non-Af Amer) POC Glucose (mg/dL) 322 H 333 H (65-110) mg/dL Random Glucose (75-110) mg/dL Calcium (8.4-10.2) mg/dL Total Bilirubin (0.2-1.3) mg/dl AST (17-59) U/L ALT (21-72) U/L Alkaline Phosphatase (38-126) U/L Total Protein (6.3-8.2) G/DL Albumin (3.5-5.0) g/dL Globulin (2.2-3.9) gm/dL Albumin/Globulin Ratio (1.0-2.1) Laboratory Results - last 24 hr 07/31/16 07/31/16 07/31/16 11:23 16:15 23:34 WBC RBC Hgb Hct MCV MCH MCHC RDW Plt Count pCO2 pO2 HCO3 ABG pH ABG Total CO2 ABG O2 Saturation ABG O2 Content ABG Base Excess ABG Hemoglobin ABG Carboxyhemoglobin POC ABG HHb (Measured) ABG Methemoglobin ABG O2 Capacity Mason Test A-a O2 Difference Hgb O2 Saturation Vent Mode Mechanical Rate FiO2 Tidal Volume PEEP Sodium Potassium Chloride Carbon Dioxide Anion Gap BUN Creatinine Est GFR ( Amer) Est GFR (Non-Af Amer) POC Glucose (mg/dL) 333 H 322 H 279 H Random Glucose Calcium Total Bilirubin AST ALT Alkaline Phosphatase Total Protein Albumin Globulin Albumin/Globulin Ratio 08/01/16 08/01/16 08/01/16 04:20 04:20 04:26 WBC 9.2 RBC 2.94 L Hgb 8.2 L Hct 25.4 L MCV 86.2 MCH 27.7 MCHC 32.1 L RDW 17.9 H Plt Count 208 pCO2 pO2 HCO3 ABG pH ABG Total CO2 ABG O2 Saturation ABG O2 Content ABG Base Excess ABG Hemoglobin ABG Carboxyhemoglobin POC ABG HHb (Measured) ABG Methemoglobin ABG O2 Capacity Mason Test A-a O2 Difference Hgb O2 Saturation Vent Mode Mechanical Rate FiO2 Tidal Volume PEEP Sodium 139 Potassium 4.3 Chloride 101 Carbon Dioxide 26 Anion Gap 16 BUN 68 H Creatinine 4.5 H Est GFR ( Amer) 15 Est GFR (Non-Af Amer) 13 POC Glucose (mg/dL) 313 H Random Glucose 303 H Calcium 7.6 L Total Bilirubin 1.4 H AST 73 H D ALT 62 Alkaline Phosphatase 308 H Total Protein 6.7 Albumin 2.5 L Globulin 4.2 H Albumin/Globulin Ratio 0.6 L 08/01/16 08/01/16 05:11 11:05 WBC RBC Hgb Hct MCV MCH MCHC RDW Plt Count pCO2 40 pO2 73 L HCO3 27.1 ABG pH 7.44 ABG Total CO2 28.4 H ABG O2 Saturation 98.0 ABG O2 Content 11.3 L ABG Base Excess 2.8 ABG Hemoglobin 8.4 L ABG Carboxyhemoglobin 2.3 H POC ABG HHb (Measured) 1.9 ABG Methemoglobin 1.3 ABG O2 Capacity 11.5 L Mason Test Yes A-a O2 Difference 162.0 Hgb O2 Saturation 94.5 L Vent Mode Prvc/ac Mechanical Rate 14 FiO2 40.0 Tidal Volume 500 PEEP 5 Sodium Potassium Chloride Carbon Dioxide Anion Gap BUN Creatinine Est GFR ( Amer) Est GFR (Non-Af Amer) POC Glucose (mg/dL) 153 H Random Glucose Calcium Total Bilirubin AST ALT Alkaline Phosphatase Total Protein Albumin Globulin Albumin/Globulin Ratio Fingerstick Blood Sugar Results: 153 Review of Systems - Review of Systems Systems not reviewed;Unavailable: Intubated Assessment/Plan - Assessment and Plan (Free Text) Assessment: 80 y/o with PMH including HTN, DM2, Hyperlipidemia, Morbid obesity, CKD Stage IV presented to [facility] for 2 weeks of progressive abdominal pain, lower extremity erythema and generalized malaise. He was subsequently admitted for lower extremity cellulitis, possible cholecystitis and acute on chronic CKD associated with multiple electrolyte abnormalities. During admission, patient had signs of lethargy and was sent for CT Head and Chest, during which an LINER CHECKER was called. LINER CHECKER converted to code blue for cardiac/respiratory arrest. Patient was coded for 10 minutes and was intubated, with return of spontaneous circulation. Patient was then transferred to ICU on 07/14/16. Since then, patient has been intubated, unresponsive and septic. 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 He again had a code blue called on 07/28/16 and was resuscitated with epinephrine and atropine. He has been weaned off of pressors and is currently ICU day 19. Plan: Anoxic Brain Injury -Secondary to cardiac arrest for over 10 minutes with hypoxemia on 07/14/16 and again on 07/28/16 -Absent pupillary response. Corneal reflex present. Dolls eyes negative. Gag reflex absent however carinal reflex can be elicited. -Patient is not brain due to preserved brain stem functions, however remains in vegetative state -Pending family decision regarding tracheostomy and PEG -Possible tracheostomy on Thursday -Continue neuro checks -Neurology consulted, requesting repeat CT Head due to recent code when patient stable Acute Respiratory Failure -Etiology possibly secondary to aspiration pneumonia? -Patient intubated on 07/14/16 due to cardiac/respiratory arrest -Currently on mechanical ventilation, day -Current Vent settings: 14/500/5/40%, Patient satting between 98-99% -Possible tracheostomy on Thursday based on family decision Septic shock, with Strep Anginosus Bacteremia -Etiology secondary to GI vs Aspiration pneumonia -Afebrile overnight. WBC: 9.2 -Last fever: 100.6F on 07/28 @23:38 -Weaned off of levophed yesterday -Blood culture from 07/09 detected strep anginosus sensitive to Vancomycin -Repeat blood cultures obtained from IJ during dialysis and femoral line on both revealed no growth, final -On empiric abx: Vancomycin 1gm IV Q72h (Since 07/13) and Zosyn 2.25 gm IV Q8h ( Started 07/11, day 22) Cefepime 1gm IV daily(Started 07/25, day 8) -Yeast species detected on tracheal aspirate. Micafungin started on 07/27, current day 6 Acute on Chronic Kidney Failure -Has been following with nephrology, Dr Morse as outpatient -BUN/Cr: 68/4.5 -Started on HD during admission, which patient has been receiving on MWF schedule. Nephro recently added additional dialysis for Saturdays -Received third consecutive day of dialysis today Anemia of Chronic Disease -S/P 2units pRBC on 07/30 -H/H: 8.2/25.4 Paroxysmal Atrial Fibrillation -Has had several episodes of afib during dialysis which resolved with amiodarone. -Rate controlled. Sinus rhythm today. Will monitor. Feeds -Nepro via OGT DVT Prophylaxis -Heparin 5,000units SC Q8H Code Status -Full code <Vito Mckeon - Last Filed: 08/01/16 15:39> CCU Subjective - Physician Review Subjective (Free Text): Attestation: Patient seen and examined at the bedside with Resident Dr. Sung Garcia; and I agree with his outline of plans and management documented as discussed on AM rounds reflecting my review of all applicable clinical data, and participation in the care of the patient throughout the day in ICU; today, August 01, 2016.
--- NOTE | 2016-08-01 12:29 | CP.PCM.PN ---
Subjective - Date & Time of Evaluation Date of Evaluation: 08/01/16 Time of Evaluation: 08:00 - Subjective Subjective: weaned from pressors yesterday and overnight and has been afebrile. He remains on mechanical ventilation, satting at 99% on settings of 14/500/5/40%. Patient is unresponsive to verbal or physical stimuli Objective - Vital Signs/Intake and Output Vital Signs (last 24 hours): Temp Pulse Resp BP Pulse Ox 99.4 F 79 23 99/56 L 100 08/01/16 08:00 08/01/16 10:00 08/01/16 10:00 08/01/16 10:00 08/01/16 10:00 Intake and Output: 08/01/16 08/01/16 06:59 18:59 Intake Total 760 550 Output Total 0 Balance 760 550 - Medications Medications: Current Medications Acetaminophen (Tylenol 650mg/20.3ml Solution Ud) 650 mg PO Q6 PRN PRN Reason: fever Last Admin: 07/28/16 23:38 Dose: 650 mg Acetaminophen (Tylenol 325mg Tab) 650 mg PO Q6H PRN PRN Reason: Pain, moderate (4-7) Allopurinol (Zyloprim) 100 mg PO DAILY [facility] Last Admin: 07/31/16 10:19 Dose: 100 mg Artificial Tears (Artificial Tears) 2 drop OU Q6 PRN PRN Reason: Dry eyes Last Admin: 08/01/16 08:46 Dose: 2 drop Ascorbic Acid (Vitamin C 500 Mg Tab) 1,000 mg PO DAILY [facility] Last Admin: 07/31/16 10:18 Dose: 1,000 mg Bismuth Subsalicylate (Pepto-Bismol) 524 mg PO Q6H PRN PRN Reason: Diarrhea Carvedilol (Coreg) 12.5 mg PO BID [facility] Last Admin: 08/01/16 08:47 Dose: Not Given Dextrose (Dextrose 50% Inj) 0 ml IVP STAT PRN; Protocol PRN Reason: Hypoglycemia Protocol Ezetimibe (Zetia) 10 mg PO HS [facility] Last Admin: 07/31/16 22:06 Dose: 10 mg Epoetin Jameel (Procrit) 4,000 unit SC MWF [facility] Last Admin: 08/01/16 08:50 Dose: 4,000 unit Ergocalciferol (Drisdol 50,000 Intl Units Cap) 1 cap PO QWK [facility] Glucagon (Glucagen Diagnostic Kit) 0 mg IM STAT PRN; Protocol PRN Reason: Hypoglycemia Protocol Heparin Sodium (Porcine) (Heparin) 5,000 units SC Q8 [facility] PRN Reason: Protocol Last Admin: 08/01/16 08:48 Dose: 5,000 units Vancomycin HCl 1 gm/ Sodium (Chloride) 250 mls @ 166.667 mls/hr IVPB MWF [facility] Last Admin: 08/01/16 08:51 Dose: 166.667 mls/hr Micafungin Sodium 100 mg/ (Sodium Chloride) 100 mls @ 100 mls/hr IVPB DAILY [facility] Last Admin: 08/01/16 08:49 Dose: 100 mls/hr Cefepime HCl 1 gm/ Sodium (Chloride) 100 mls @ 100 mls/hr IVPB DAILY [facility] Last Admin: 08/01/16 08:48 Dose: 100 mls/hr Piperacillin Sod/Tazobactam (Sod 2.25 gm/ Sodium Chloride) 100 mls @ 100 mls/ hr IVPB Q8 [facility] Last Admin: 08/01/16 08:52 Dose: 100 mls/hr Insulin Detemir (Levemir) [address] [facility] Last Admin: 08/01/16 00:00 Dose: 25 units Insulin Human Regular (Humulin R) 0 units SC ACHS [facility] PRN Reason: Protocol Last Admin: 08/01/16 12:10 Dose: 2 units Midodrine (Proamatine) 10 mg PO Q8H [facility] Last Admin: 08/01/16 05:30 Dose: 10 mg Pantoprazole Sodium (Protonix Susp) 40 mg PO DAILY [facility] Last Admin: 07/31/16 10:16 Dose: 40 mg Sevelamer Carbonate (Renvela) 0.8 gm PO TID [facility] Last Admin: 08/01/16 12:11 Dose: Not Given Sitagliptin Phosphate (Januvia) 25 mg PO DAILY [facility] Last Admin: 07/31/16 08:55 Dose: 25 mg Tamsulosin HCl (Flomax) 0.4 mg PO DAILY [facility] Last Admin: 07/31/16 08:54 Dose: 0.4 mg Vitamin B Complex/Vit C/Folic Acid (Nephro-Carlitos) 1 tab PO DAILY [facility] Last Admin: 07/31/16 08:56 Dose: 1 tab - Labs Labs: 08/01/16 04:20 08/01/16 04:20 PT 12.7 SECONDS (9.6-11.2) H 07/31/16 04:40 INR 1.22 (0.92-1.08) H 07/31/16 04:40 APTT 30.1 SECONDS (23.3-32.5) 07/31/16 04:40 - Constitutional Appears: Non-toxic, Chronically Ill - Head Exam Head Exam: NORMOCEPHALIC - Eye Exam Eye Exam: absent: Scleral icterus - ENT Exam ENT Exam: Mucous Membranes Dry, Normal External Ear Exam - Neck Exam Neck Exam: absent: Lymphadenopathy, Thyromegaly - Respiratory Exam Respiratory Exam: Decreased Breath Sounds, Clear to Ausculation Bilateral - Cardiovascular Exam Cardiovascular Exam: REGULAR RHYTHM, +S1, +S2 - GI/Abdominal Exam GI & Abdominal Exam: Distended, Soft. absent: Tenderness - Rectal Exam Rectal Exam: Deferred - Exam Exam: NORMAL INSPECTION - Extremities Exam Extremities Exam: absent: Pedal Edema - Back Exam Back Exam: absent: CVA tenderness (L), CVA tenderness (R) Assessment and Plan (1) Acute kidney failure Status: Acute (2) Cellulitis of right lower extremity Status: Acute (3) Bacteremia Status: Acute (4) Bacteremia Status: Acute
--- NOTE | 2016-08-01 15:33 | RAD ---
PROCEDURE: CHEST RADIOGRAPH, 1 VIEW HISTORY: pt intubated COMPARISON: Comparison is made to the previous same-day exam. FINDINGS: LUNGS: The ET tube is again seen at appropriate position. Interval worsening of heterogeneous opacities in the lungs since the previous study. PLEURA: Blunting of both costophrenic angles noted. CARDIOVASCULAR: Possible cardiomegaly. Right sided central line is again seen in place. OSSEOUS STRUCTURES: No significant abnormalities. VISUALIZED UPPER ABDOMEN: The NG tube seen extending to the stomach. OTHER FINDINGS: None. IMPRESSION: Appropriate position of the support devices. Interval worsening of heterogeneous opacities in the lungs.
--- NOTE | 2016-08-01 15:50 | CT ---
PROCEDURE: CT HEAD WITHOUT CONTRAST. HISTORY: anoxic brain injury possible midbrain infarct COMPARISON: Comparison is made to 07/15/2016 TECHNIQUE: Axial computed tomography images were obtained through the head/brain without intravenous contrast. Radiation dose: Total exam DLP = 2200.81 mGy-cm. This CT exam was performed using one or more of the following dose reduction techniques: Automated exposure control, adjustment of the mA and/or kV according to patient size, and/or use of iterative reconstruction technique. FINDINGS: HEMORRHAGE: No intracranial hemorrhage. 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 Atrophy and chronic microvascular white matter ischemic disease are again seen. VENTRICLES: Unremarkable. No hydrocephalus. CALVARIUM: Unremarkable. PARANASAL SINUSES: Unremarkable as visualized. No significant inflammatory changes. MASTOID AIR CELLS: Complete opacification of the mastoids bilaterally noted in new compared to the previous exam. Opacification of the middle ears bilaterally suggestive of otomastoiditis. OTHER FINDINGS: None. IMPRESSION: Findings suspicious for otomastoiditis bilaterally. No evidence of acute intracranial hemorrhage or significant interval change in the brain since the previous exam.
[2016-08-01] MEDS: Pantoprazole 40 mg Susp UD PO SCH (16:34)
[2016-08-01] MEDS: Multivitamin Vitamin B Complex (Nephro-Vite) Tab PO SCH (16:34)
--- NOTE | 2016-08-01 16:54 | CP.PCM.PN ---
Subjective - Date & Time of Evaluation Date of Evaluation: 08/01/16 Time of Evaluation: 11:00 - Subjective Subjective: Mr. Montalvo was seen and examined today in the ICU. His son and daughter were at bedside. He is now off pressers, continues to be on vent, off sedation. Likely in a vegetative state. Objective - Vital Signs/Intake and Output Vital Signs (last 24 hours): Temp Pulse Resp BP Pulse Ox 98.8 F 76 20 101/61 100 08/01/16 16:00 08/01/16 16:32 08/01/16 16:00 08/01/16 16:32 08/01/16 16:00 Intake and Output: 08/01/16 08/01/16 06:59 18:59 Intake Total 760 1334 Output Total 0 500 Balance 760 834 - Medications Medications: Current Medications Acetaminophen (Tylenol 650mg/20.3ml Solution Ud) 650 mg PO Q6 PRN PRN Reason: fever Last Admin: 07/28/16 23:38 Dose: 650 mg Acetaminophen (Tylenol 325mg Tab) 650 mg PO Q6H PRN PRN Reason: Pain, moderate (4-7) Allopurinol (Zyloprim) 100 mg PO DAILY [facility] Last Admin: 08/01/16 16:37 Dose: 100 mg Artificial Tears (Artificial Tears) 2 drop OU Q6 PRN PRN Reason: Dry eyes Last Admin: 08/01/16 08:46 Dose: 2 drop Ascorbic Acid (Vitamin C 500 Mg Tab) 1,000 mg PO DAILY [facility] Last Admin: 08/01/16 16:35 Dose: 1,000 mg Bismuth Subsalicylate (Pepto-Bismol) 524 mg PO Q6H PRN PRN Reason: Diarrhea Carvedilol (Coreg) 12.5 mg PO BID [facility] Last Admin: 08/01/16 16:32 Dose: 12.5 mg Dextrose (Dextrose 50% Inj) 0 ml IVP STAT PRN; Protocol PRN Reason: Hypoglycemia Protocol Ezetimibe (Zetia) 10 mg PO HS [facility] Last Admin: 07/31/16 22:06 Dose: 10 mg Epoetin Jameel (Procrit) 4,000 unit SC MWF [facility] Last Admin: 08/01/16 08:50 Dose: 4,000 unit Ergocalciferol (Drisdol 50,000 Intl Units Cap) 1 cap PO QWK [facility] Glucagon (Glucagen Diagnostic Kit) 0 mg IM STAT PRN; Protocol PRN Reason: Hypoglycemia Protocol Heparin Sodium (Porcine) (Heparin) 5,000 units SC Q8 [facility] PRN Reason: Protocol Last Admin: 08/01/16 16:32 Dose: 5,000 units Vancomycin HCl 1 gm/ Sodium (Chloride) 250 mls @ 166.667 mls/hr IVPB MWF [facility] Last Admin: 08/01/16 08:51 Dose: 166.667 mls/hr Micafungin Sodium 100 mg/ (Sodium Chloride) 100 mls @ 100 mls/hr IVPB DAILY [facility] Last Admin: 08/01/16 08:49 Dose: 100 mls/hr Cefepime HCl 1 gm/ Sodium (Chloride) 100 mls @ 100 mls/hr IVPB DAILY [facility] Last Admin: 08/01/16 08:48 Dose: 100 mls/hr Piperacillin Sod/Tazobactam (Sod 2.25 gm/ Sodium Chloride) 100 mls @ 100 mls/ hr IVPB Q8 [facility] Last Admin: 08/01/16 16:36 Dose: 100 mls/hr Insulin Detemir (Levemir) 25 units SC HS [facility] Last Admin: 08/01/16 00:00 Dose: 25 units Insulin Human Regular (Humulin R) 0 units SC ACHS [facility] PRN Reason: Protocol Last Admin: 08/01/16 16:33 Dose: Not Given Midodrine (Proamatine) 10 mg PO Q8H [facility] Last Admin: 08/01/16 16:34 Dose: 10 mg Pantoprazole Sodium (Protonix Susp) 40 mg PO DAILY [facility] Last Admin: 08/01/16 16:34 Dose: 40 mg Sevelamer Carbonate (Renvela) 0.8 gm PO TID [facility] Last Admin: 08/01/16 16:35 Dose: 0.8 gm Sitagliptin Phosphate (Januvia) 25 mg PO DAILY [facility] Last Admin: 08/01/16 16:34 Dose: 25 mg Tamsulosin HCl (Flomax) 0.4 mg PO DAILY [facility] Last Admin: 08/01/16 16:32 Dose: 0.4 mg Vitamin B Complex/Vit C/Folic Acid (Nephro-Carlitos) 1 tab PO DAILY [facility] Last Admin: 08/01/16 16:34 Dose: 1 tab - Labs Labs: 08/01/16 04:20 08/01/16 04:20 PT 12.7 SECONDS (9.6-11.2) H 07/31/16 04:40 INR 1.22 (0.92-1.08) H 07/31/16 04:40 APTT 30.1 SECONDS (23.3-32.5) 07/31/16 04:40 - Neurological Exam Additional comments: Neurologically unchanged from previous examination. Assessment and Plan (1) Anoxic brain injury Assessment & Plan: Will obtain CT head to evaluate for ischemic/anoxic evidence. Will discuss with family code status and potential withdrawal of care. Status: Acute
[2016-08-01] MEDS: Insulin Detemir 100 Units/ml Inj SC SCH ×2 (21:42)
--- NOTE | 2016-08-02 00:14 | CP.PCM.PN ---
Subjective - Date & Time of Evaluation Date of Evaluation: 08/01/16 Time of Evaluation: 14:00 - Subjective Subjective: SEEN ON RENAL F/U HAD HD EARLIER TODAY .. BP DROPPED WHILE ON HD REMAINS INTUBATED D/W FAMILY .. THEY ARE CONSIDERING A DNR Objective - Vital Signs/Intake and Output Vital Signs (last 24 hours): Temp Pulse Resp BP Pulse Ox 98.6 F 102 H 22 101/74 96 08/01/16 20:00 08/01/16 22:00 08/01/16 22:00 08/01/16 22:00 08/01/16 22:00 Intake and Output: 08/01/16 08/02/16 18:59 06:59 Intake Total 1334 165 Output Total 500 Balance 834 165 - Medications Medications: Current Medications Acetaminophen (Tylenol 650mg/20.3ml Solution Ud) 650 mg PO Q6 PRN PRN Reason: fever Last Admin: 07/28/16 23:38 Dose: 650 mg Acetaminophen (Tylenol 325mg Tab) 650 mg PO Q6H PRN PRN Reason: Pain, moderate (4-7) Allopurinol (Zyloprim) 100 mg PO DAILY [facility] Last Admin: 08/01/16 16:37 Dose: 100 mg Artificial Tears (Artificial Tears) 2 drop OU Q6 PRN PRN Reason: Dry eyes Last Admin: 08/01/16 08:46 Dose: 2 drop Ascorbic Acid (Vitamin C 500 Mg Tab) 1,000 mg PO DAILY [facility] Last Admin: 08/01/16 16:35 Dose: 1,000 mg Bismuth Subsalicylate (Pepto-Bismol) 524 mg PO Q6H PRN PRN Reason: Diarrhea Carvedilol (Coreg) 12.5 mg PO BID [facility] Last Admin: 08/01/16 16:32 Dose: 12.5 mg Dextrose (Dextrose 50% Inj) 0 ml IVP STAT PRN; Protocol PRN Reason: Hypoglycemia Protocol Ezetimibe (Zetia) 10 mg PO HS [facility] Last Admin: 08/01/16 21:10 Dose: 10 mg Epoetin Jameel (Procrit) 4,000 unit SC MWF [facility] Last Admin: 08/01/16 08:50 Dose: 4,000 unit Ergocalciferol (Drisdol 50,000 Intl Units Cap) 1 cap PO QWK [facility] Glucagon (Glucagen Diagnostic Kit) 0 mg IM STAT PRN; Protocol PRN Reason: Hypoglycemia Protocol Heparin Sodium (Porcine) (Heparin) 5,000 units SC Q8 [facility] PRN Reason: Protocol Last Admin: 08/01/16 16:32 Dose: 5,000 units Vancomycin HCl 1 gm/ Sodium (Chloride) 250 mls @ 166.667 mls/hr IVPB MWF [facility] Last Admin: 08/01/16 08:51 Dose: 166.667 mls/hr Micafungin Sodium 100 mg/ (Sodium Chloride) 100 mls @ 100 mls/hr IVPB DAILY [facility] Last Admin: 08/01/16 08:49 Dose: 100 mls/hr Cefepime HCl 1 gm/ Sodium (Chloride) 100 mls @ 100 mls/hr IVPB DAILY [facility] Last Admin: 08/01/16 08:48 Dose: 100 mls/hr Piperacillin Sod/Tazobactam (Sod 2.25 gm/ Sodium Chloride) 100 mls @ 100 mls/ hr IVPB Q8 [facility] Last Admin: 08/01/16 16:36 Dose: 100 mls/hr Insulin Detemir (Levemir) 25 units SC HS [facility] Last Admin: 08/01/16 21:42 Dose: 25 units Insulin Human Regular (Humulin R) 0 units SC ACHS [facility] PRN Reason: Protocol Last Admin: 08/01/16 21:42 Dose: Not Given Midodrine (Proamatine) 10 mg PO Q8H [facility] Last Admin: 08/01/16 21:10 Dose: 10 mg Pantoprazole Sodium (Protonix Susp) 40 mg PO DAILY [facility] Last Admin: 08/01/16 16:34 Dose: 40 mg Sevelamer Carbonate (Renvela) 0.8 gm PO TID [facility] Last Admin: 08/01/16 16:35 Dose: 0.8 gm Sitagliptin Phosphate (Januvia) 25 mg PO DAILY [facility] Last Admin: 08/01/16 16:34 Dose: 25 mg Tamsulosin HCl (Flomax) 0.4 mg PO DAILY [facility] Last Admin: 08/01/16 16:32 Dose: 0.4 mg Vitamin B Complex/Vit C/Folic Acid (Nephro-Carlitos) 1 tab PO DAILY [facility] Last Admin: 08/01/16 16:34 Dose: 1 tab - Labs Labs: 08/01/16 04:20 08/01/16 04:20 PT 12.7 SECONDS (9.6-11.2) H 07/31/16 04:40 INR 1.22 (0.92-1.08) H 07/31/16 04:40 APTT 30.1 SECONDS (23.3-32.5) 07/31/16 04:40 Assessment and Plan - Assessment and Plan (Free Text) Assessment: A ON CKD .. ON HD M W F ANEMIA OF CKD .. ON EPO MULTIPLE CO MORBIDITIES P : C/O CURRENT CARE
[2016-08-02] MEDS ORDERED: Sodium Chloride 0.9% 500 ML IV ONE (01:12)
[2016-08-02 04:39] LABS: HEMATOCRIT 25.8 % (35.0-51.0); MEAN CELL VOLUME 85.9 fl (80.0-94.0); MEAN CORPUSCULAR HEMOGLOBIN 27.6 pg (27.0-31.0); MEAN CORPUSCULAR HGB CONC 32.2 g/dL (33.0-37.0); RED CELL DISTRIBUTION WIDTH 18.8 % (11.5-14.5); WHITE BLOOD COUNT 8.8 K/uL (4.8-10.8)
[2016-08-02 05:00] LABS: ALB/GLOB RATIO 0.6 (1.0-2.1); BILIRUBIN,TOTAL 1.4 mg/dl (0.2-1.3); CALCIUM 7.6 mg/dL (8.4-10.2); POTASSIUM 4.3 MMOL/L (3.6-5.0); TOTAL PROTEIN 6.9 G/DL (6.3-8.2)
[2016-08-02 05:31] LABS: ABG ALLEN TEST YES; ABG MECHANICAL RATE 14; ARTERIAL BLOOD GAS HCO3 29.5 mmol/L (21-28); ARTERIAL BLOOD GAS MODE A/C; ARTERIAL BLOOD GAS PH 7.48 (7.35-7.45); ARTERIAL BLOOD GAS PO2 115 mm/Hg (80-100); ATERIAL BLOOD GAS PEEP 5
[2016-08-02] MEDS: Insulin Regular 100 units/ml SC SCH ×4 (06:38→22:00)
--- NOTE | 2016-08-02 08:22 | CP.PCM.PN ---
Subjective - Date & Time of Evaluation Date of Evaluation: 08/02/16 Time of Evaluation: 08:18 - Subjective Subjective: General Surgery - Dr. Roa Pt S&E. NAEO. PT was made DNR yesterday night by family. He remains unresponsive. Vent with 5 Peep, 40% Fio2. Off pressors. Objective - Vital Signs/Intake and Output Vital Signs (last 24 hours): Temp Pulse Resp BP Pulse Ox 98.9 F 77 15 113/61 100 08/02/16 07:42 08/02/16 07:42 08/02/16 07:42 08/02/16 08:00 08/02/16 07:42 Intake and Output: 08/02/16 08/02/16 06:59 18:59 Intake Total 1205 110 Balance 1205 110 - Medications Medications: Current Medications Acetaminophen (Tylenol 650mg/20.3ml Solution Ud) 650 mg PO Q6 PRN PRN Reason: fever Last Admin: 07/28/16 23:38 Dose: 650 mg Acetaminophen (Tylenol 325mg Tab) 650 mg PO Q6H PRN PRN Reason: Pain, moderate (4-7) Allopurinol (Zyloprim) 100 mg PO DAILY [facility] Last Admin: 08/01/16 16:37 Dose: 100 mg Artificial Tears (Artificial Tears) 2 drop OU Q6 PRN PRN Reason: Dry eyes Last Admin: 08/01/16 08:46 Dose: 2 drop Ascorbic Acid (Vitamin C 500 Mg Tab) 1,000 mg PO DAILY [facility] Last Admin: 08/01/16 16:35 Dose: 1,000 mg Bismuth Subsalicylate (Pepto-Bismol) 524 mg PO Q6H PRN PRN Reason: Diarrhea Carvedilol (Coreg) 12.5 mg PO BID [facility] Last Admin: 08/01/16 16:32 Dose: 12.5 mg Dextrose (Dextrose 50% Inj) 0 ml IVP STAT PRN; Protocol PRN Reason: Hypoglycemia Protocol Ezetimibe (Zetia) 10 mg PO HS [facility] Last Admin: 08/01/16 21:10 Dose: 10 mg Epoetin Jameel (Procrit) 4,000 unit SC MWF [facility] Last Admin: 08/01/16 08:50 Dose: 4,000 unit Ergocalciferol (Drisdol 50,000 Intl Units Cap) 1 cap PO QWK [facility] Glucagon (Glucagen Diagnostic Kit) 0 mg IM STAT PRN; Protocol PRN Reason: Hypoglycemia Protocol Heparin Sodium (Porcine) (Heparin) 5,000 units SC Q8 [facility] PRN Reason: Protocol Last Admin: 08/02/16 02:18 Dose: 5,000 units Vancomycin HCl 1 gm/ Sodium (Chloride) 250 mls @ 166.667 mls/hr IVPB MWF [facility] Last Admin: 08/01/16 08:51 Dose: 166.667 mls/hr Micafungin Sodium 100 mg/ (Sodium Chloride) 100 mls @ 100 mls/hr IVPB DAILY [facility] Last Admin: 08/01/16 08:49 Dose: 100 mls/hr Cefepime HCl 1 gm/ Sodium (Chloride) 100 mls @ 100 mls/hr IVPB DAILY [facility] Last Admin: 08/01/16 08:48 Dose: 100 mls/hr Piperacillin Sod/Tazobactam (Sod 2.25 gm/ Sodium Chloride) 100 mls @ 100 mls/ hr IVPB Q8 [facility] Last Admin: 08/02/16 02:17 Dose: 100 mls/hr Insulin Detemir (Levemir) 25 units SC HS [facility] Last Admin: 08/01/16 21:42 Dose: 25 units Insulin Human Regular (Humulin R) 0 units SC ACHS [facility] PRN Reason: Protocol Last Admin: 08/02/16 06:38 Dose: 6 units Midodrine (Proamatine) 10 mg PO Q8H [facility] Last Admin: 08/01/16 21:10 Dose: 10 mg Pantoprazole Sodium (Protonix Susp) 40 mg PO DAILY [facility] Last Admin: 08/01/16 16:34 Dose: 40 mg Sevelamer Carbonate (Renvela) 0.8 gm PO TID [facility] Last Admin: 08/01/16 16:35 Dose: 0.8 gm Sitagliptin Phosphate (Januvia) 25 mg PO DAILY [facility] Last Admin: 08/01/16 16:34 Dose: 25 mg Tamsulosin HCl (Flomax) 0.4 mg PO DAILY [facility] Last Admin: 08/01/16 16:32 Dose: 0.4 mg Vitamin B Complex/Vit C/Folic Acid (Nephro-Carlitos) 1 tab PO DAILY [facility] Last Admin: 08/01/16 16:34 Dose: 1 tab - Labs Labs: 05/27/17 04:20 08/02/16 04:20 PT 12.7 SECONDS (9.6-11.2) H 07/31/16 04:40 INR 1.22 (0.92-1.08) H 07/31/16 04:40 APTT 30.1 SECONDS (23.3-32.5) 07/31/16 04:40 - Constitutional Appears: No Acute Distress - Head Exam Head Exam: ATRAUMATIC - Respiratory Exam Respiratory Exam: absent: Respiratory Distress - Neurological Exam Neurological Exam: absent: Alert, Awake - Skin Skin Exam: Dry, Intact Assessment and Plan - Assessment and Plan (Free Text) Assessment: 80M w/ acute on chronic CKD, s/p code blue w/ acute resp failure and anoxic brain injury, intubated since 07/14 -Pt was made DNR by family yesterday but they are still considering tracheostomy -Tracheostomy is currently scheduled for Saturday 08/05 -Dw family when available TANVI Triplett PGY2
--- NOTE | 2016-08-02 08:36 | PN ---
DATE: 08/02/2016 The patient seen and examined. Interim events noted. Consults noted and appreciated. Fisher Purse Seine haley ferro nephrology followup and intervention noted and appreciated. The patient remains in intensive care unit on ventilator, unresponsive, not able to provide informative history or review of systems. PHYSICAL EXAMINATION: GENERAL: The patient is orally intubated on mechanical ventilation via endotracheal tube, tolerating current vent setting without any acute respiratory distress. VITAL SIGNS: Stable. Blood pressure is 107. HEART: S1, S2 normal, regular. LUNGS: Good bilateral air exchange. ABDOMEN: Soft, nontender. EXTREMITIES: The patient has chronic venous stasis. CENTRAL NERVOUS SYSTEM: Essentially unchanged and patient remains uncommunicative. DIAGNOSTIC DATA: Available diagnostic data reviewed. Telemetry monitoring does not show significant arrhythmias. Case discussed with capital markets specialist. Overall, patient remains essentially comatose and long-term prognos is remains poor. The patient is DNR. PLAN: As ordered. Tang Solorio MD cc: [id number] TT: 08/02/2016 08:35:34 Confirmation # [id number] Dictation # [id number] tn
--- NOTE | 2016-08-02 08:49 | CP.CCUPN ---
CCU Subjective - Physician Review Events Since Last Encounter (Free Text): 08/02/16 08:45 Patient on ventilator, on PRVC, TV 500, RR 14, FIO2 40%, no pressors, no response to verbal stimuli, no fever, events reviewed CCU Objective - Vital Signs / Intake & Output Vital Signs (Last 4 hours): Vital Signs Temp Pulse Resp BP Pulse Ox 08/02/16 08:00 113/61 08/02/16 07:42 98.9 F 77 15 107/59 L 100 08/02/16 06:00 71 19 100/53 L 99 Intake and Output (Last 8hrs): Intake & Output 08/01/16 08/02/16 08/02/16 22:59 06:59 14:59 Intake Total 949 1040 110 Balance 949 1040 110 Intake: IV 24 500 Intake, Piggyback 100 100 Oral 110 Tube Feeding 825 440 Other: # Bowel Movements 1 - Physical Exam Head: Positive for: Atraumatic, Normocephalic Pupils: Positive for: Non-Reactive Extroacular Muscles: Negative for: EOMI Conjunctiva: Negative for: Injected, Icteric Ears: Positive for: Normal Mouth: Positive for: Dry Pharnyx: Positive for: Normal Neck: Positive for: Other (Right IJ HD catheter site clean, dry, with no signs of erythema.) Respiratory/Chest: Positive for: Other (Intubated, on mechanical ventilation. B/ L air entry present but decreased at left lung cortez and lung bases. Scattered crackles present b/l.). Negative for: Wheezes Cardiovascular: Positive for: Regular Rate and Rhythm. Negative for: Murmurs Abdomen: Positive for: Normal Bowel Sounds. Negative for: Tenderness, Distention Genitourinary Male: Positive for: Other (Right groin TLC site clean, dry, with no surrounding erythema. ) Upper Extremity: Positive for: Edema (B/L upper extremity edema), Other ( Generalized anasarca which has remained stable compared to prior assessments) Lower Extremity: Positive for: Edema (2+ b/l LE), Other (Lower extremity YADIRA dressings.) Neurological: Positive for: Other (Unresponsive to verbal or painful stimuli. Pupils fixed. Corneal reflex present with occasional spontaneous blink. Corinal reflex present. No gag reflex. Not moving extremities. Occassionally moving head from sided to side.). Negative for: CN II-XII Intact Psychiatric: Negative for: Alert - Medications Active Medications: Active Medications Generic Name Dose Route Start Last Admin Trade Name Freq PRN Reason Stop Dose Admin Acetaminophen 650 mg 07/26/16 03:55 07/28/16 23:38 Tylenol 650mg/20.3ml Solution Ud PO 650 mg Q6 PRN Administration fever Acetaminophen 650 mg 07/29/16 10:45 Tylenol 325mg Tab PO Q6H PRN Pain, moderate (4-7) Allopurinol 100 mg 07/19/16 09:00 08/01/16 16:37 Zyloprim PO 100 mg DAILY [facility] Administration Artificial Tears 2 drop 07/26/16 16:18 08/01/16 08:46 Artificial Tears OU 2 drop Q6 PRN Administration Dry eyes Ascorbic Acid 1,000 mg 07/23/16 09:00 08/01/16 16:35 Vitamin C 500 Mg Tab PO 1,000 mg DAILY [facility] Administration Bismuth Subsalicylate 524 mg 07/18/16 20:13 Pepto-Bismol PO Q6H PRN Diarrhea Carvedilol 12.5 mg 07/19/16 09:00 08/01/16 16:32 Coreg PO 12.5 mg BID [facility] Administration Dextrose 0 ml 07/18/16 20:13 Dextrose 50% Inj IVP STAT PRN Hypoglycemia Protocol Protocol Ezetimibe 10 mg 07/18/16 22:00 08/01/16 21:10 Zetia PO 10 mg HS [facility] Administration Epoetin Jameel 4,000 unit 07/28/16 09:00 08/01/16 08:50 Procrit SC 4,000 unit MWF [facility] Administration Ergocalciferol 1 cap 07/18/16 20:13 Drisdol 50,000 Intl Units Cap PO QWK [facility] Glucagon 0 mg 07/18/16 20:13 Glucagen Diagnostic Kit IM STAT PRN Hypoglycemia Protocol Protocol Heparin Sodium (Porcine) 5,000 units 07/29/16 17:00 08/02/16 02:18 Heparin SC 5,000 units Q8 [facility] Administration Protocol Vancomycin HCl 1 gm/ Sodium 250 mls @ 166.667 mls/hr 07/28/16 09:00 08/01/16 08:51 Chloride IVPB 166.667 mls/hr MWF [facility] Administration Micafungin Sodium 100 mg/ 100 mls @ 100 mls/hr 07/27/16 13:45 08/01/16 08:49 Sodium Chloride IVPB 100 mls/hr DAILY [facility] Administration Cefepime HCl 1 gm/ Sodium 100 mls @ 100 mls/hr 07/31/16 11:00 08/01/16 08:48 Chloride IVPB 100 mls/hr DAILY [facility] Administration Piperacillin Sod/Tazobactam 100 mls @ 100 mls/hr 07/31/16 11:00 08/02/16 02: 17 Sod 2.25 gm/ Sodium Chloride IVPB 100 mls/hr Q8 [facility] Administration Insulin Detemir 25 units 07/18/16 22:00 08/01/16 21:42 Levemir SC 25 units HS [facility] Administration Insulin Human Regular 0 units 07/19/16 06:45 08/02/16 06:38 Humulin R SC 6 units ACHS [facility] Administration Protocol Midodrine 10 mg 07/29/16 20:30 08/01/16 21:10 Proamatine PO 10 mg Q8H [facility] Administration Pantoprazole Sodium 40 mg 07/29/16 11:00 08/01/16 16:34 Protonix Susp PO 40 mg DAILY [facility] Administration Sevelamer Carbonate 0.8 gm 07/19/16 09:00 08/01/16 16:35 Renvela PO 0.8 gm TID [facility] Administration Sitagliptin Phosphate 25 mg 07/19/16 09:00 08/01/16 16:34 Januvia PO 25 mg DAILY [facility] Administration Tamsulosin HCl 0.4 mg 07/19/16 09:00 08/01/16 16:32 Flomax PO 0.4 mg DAILY [facility] Administration Vitamin B Complex/Vit C/Folic Acid 1 tab 07/23/16 09:00 08/01/16 16:34 Nephro-Carlitos PO 1 tab DAILY [facility] Administration - Patient Studies Lab Studies: Lab Studies 08/02/16 08/02/16 08/02/16 Range/Units 06:28 05:32 04:20 WBC (4.8-10.8) K/uL RBC (4.40-5.90) Mil/uL Hgb (12.0-18.0) g/dL Hct (35.0-51.0) % MCV (80.0-94.0) fl MCH (27.0-31.0) pg MCHC (33.0-37.0) g/dL RDW (11.5-14.5) % Plt Count (130-400) K/uL pCO2 40 (35-45) mm/Hg pO2 115 H (80-100) mm/Hg HCO3 29.5 H (21-28) mmol/L ABG pH 7.48 H (7.35-7.45) ABG Total CO2 31.0 H (22-28) mmol/L ABG Base Excess 5.8 H (-2.0-3.0) mmol/L Mason Test Yes A-a O2 Difference 120.0 mm/Hg Vent Mode A/c Mechanical Rate 14 FiO2 40.0 % Tidal Volume 500 PEEP 5 Sodium 138 (132-148) mmol/l Potassium 4.3 (3.6-5.0) MMOL/L Chloride 101 (98-107) mmol/L Carbon Dioxide 27 (22-30) mmol/L Anion Gap 15 (10-20) BUN 55 H (9-20) mg/dl Creatinine 3.6 H (0.8-1.5) mg/dL Est GFR ( Amer) 20 Est GFR (Non-Af Amer) 16 POC Glucose (mg/dL) 267 H (65-110) mg/dL Random Glucose 220 H (75-110) mg/dL Calcium 7.6 L (8.4-10.2) mg/dL Total Bilirubin 1.4 H (0.2-1.3) mg/dl AST 68 H (17-59) U/L ALT 59 (21-72) U/L Alkaline Phosphatase 291 H (38-126) U/L Total Protein 6.9 (6.3-8.2) G/DL Albumin 2.5 L (3.5-5.0) g/dL Globulin 4.3 H (2.2-3.9) gm/dL Albumin/Globulin Ratio 0.6 L (1.0-2.1) 08/02/16 08/01/16 08/01/16 Range/Units 04:20 20:55 16:22 WBC 8.8 (4.8-10.8) K/uL RBC 3.00 L (4.40-5.90) Mil/uL Hgb 8.3 L (12.0-18.0) g/dL Hct 25.8 L (35.0-51.0) % MCV 85.9 (80.0-94.0) fl MCH 27.6 (27.0-31.0) pg MCHC 32.2 L (33.0-37.0) g/dL RDW 18.8 H (11.5-14.5) % Plt Count 213 (130-400) K/uL pCO2 (35-45) mm/Hg pO2 (80-100) mm/Hg HCO3 (21-28) mmol/L ABG pH (7.35-7.45) ABG Total CO2 (22-28) mmol/L ABG Base Excess (-2.0-3.0) mmol/L Mason Test A-a O2 Difference mm/Hg Vent Mode Mechanical Rate FiO2 % Tidal Volume PEEP Sodium (132-148) mmol/l Potassium (3.6-5.0) MMOL/L Chloride (98-107) mmol/L Carbon Dioxide (22-30) mmol/L Anion Gap (10-20) BUN (9-20) mg/dl Creatinine (0.8-1.5) mg/dL Est GFR ( Amer) Est GFR (Non-Af Amer) POC Glucose (mg/dL) 224 H 142 H (65-110) mg/dL Random Glucose (75-110) mg/dL Calcium (8.4-10.2) mg/dL Total Bilirubin (0.2-1.3) mg/dl AST (17-59) U/L ALT (21-72) U/L Alkaline Phosphatase (38-126) U/L Total Protein (6.3-8.2) G/DL Albumin (3.5-5.0) g/dL Globulin (2.2-3.9) gm/dL Albumin/Globulin Ratio (1.0-2.1) // Range/Units 11:05 WBC (4.8-10.8) K/uL RBC (4.40-5.90) Mil/uL Hgb (12.0-18.0) g/dL Hct (35.0-51.0) % MCV (80.0-94.0) fl MCH (27.0-31.0) pg MCHC (33.0-37.0) g/dL RDW (11.5-14.5) % Plt Count (130-400) K/uL pCO2 (35-45) mm/Hg pO2 (80-100) mm/Hg HCO3 (21-28) mmol/L ABG pH (7.35-7.45) ABG Total CO2 (22-28) mmol/L ABG Base Excess (-2.0-3.0) mmol/L Mason Test A-a O2 Difference mm/Hg Vent Mode Mechanical Rate FiO2 % Tidal Volume PEEP Sodium (132-148) mmol/l Potassium (3.6-5.0) MMOL/L Chloride (98-107) mmol/L Carbon Dioxide (22-30) mmol/L Anion Gap (10-20) BUN (9-20) mg/dl Creatinine (0.8-1.5) mg/dL Est GFR ( Amer) Est GFR (Non-Af Amer) POC Glucose (mg/dL) 153 H (65-110) mg/dL Random Glucose (75-110) mg/dL Calcium (8.4-10.2) mg/dL Total Bilirubin (0.2-1.3) mg/dl AST (17-59) U/L ALT (21-72) U/L Alkaline Phosphatase (38-126) U/L Total Protein (6.3-8.2) G/DL Albumin (3.5-5.0) g/dL Globulin (2.2-3.9) gm/dL Albumin/Globulin Ratio (1.0-2.1) Laboratory Results - last 24 hr 08/01/16 08/01/16 08/01/16 11:05 16:22 20:55 WBC RBC Hgb Hct MCV MCH MCHC RDW Plt Count pCO2 pO2 HCO3 ABG pH ABG Total CO2 ABG Base Excess Mason Test A-a O2 Difference Vent Mode Mechanical Rate FiO2 Tidal Volume PEEP Sodium Potassium Chloride Carbon Dioxide Anion Gap BUN Creatinine Est GFR ( Amer) Est GFR (Non-Af Amer) POC Glucose (mg/dL) 153 H 142 H 224 H Random Glucose Calcium Total Bilirubin AST ALT Alkaline Phosphatase Total Protein Albumin Globulin Albumin/Globulin Ratio 08/02/16 08/02/16 08/02/16 04:20 04:20 05:32 WBC 8.8 RBC 3.00 L Hgb 8.3 L Hct 25.8 L MCV 85.9 MCH 27.6 MCHC 32.2 L RDW 18.8 H Plt Count 213 pCO2 40 pO2 115 H HCO3 29.5 H ABG pH 7.48 H ABG Total CO2 31.0 H ABG Base Excess 5.8 H Mason Test Yes A-a O2 Difference 120.0 Vent Mode A/c Mechanical Rate 14 FiO2 40.0 Tidal Volume 500 PEEP 5 Sodium 138 Potassium 4.3 Chloride 101 Carbon Dioxide 27 Anion Gap 15 BUN 55 H Creatinine 3.6 H Est GFR ( Amer) 20 Est GFR (Non-Af Amer) 16 POC Glucose (mg/dL) Random Glucose 220 H Calcium 7.6 L Total Bilirubin 1.4 H AST 68 H ALT 59 Alkaline Phosphatase 291 H Total Protein 6.9 Albumin 2.5 L Globulin 4.3 H Albumin/Globulin Ratio 0.6 L 08/02/16 06:28 WBC RBC Hgb Hct MCV MCH MCHC RDW Plt Count pCO2 pO2 HCO3 ABG pH ABG Total CO2 ABG Base Excess Mason Test A-a O2 Difference Vent Mode Mechanical Rate FiO2 Tidal Volume PEEP Sodium Potassium Chloride Carbon Dioxide Anion Gap BUN Creatinine Est GFR ( Amer) Est GFR (Non-Af Amer) POC Glucose (mg/dL) 267 H Random Glucose Calcium Total Bilirubin AST ALT Alkaline Phosphatase Total Protein Albumin Globulin Albumin/Globulin Ratio Fingerstick Blood Sugar Results: 267 Assessment/Plan - Assessment and Plan (Free Text) Assessment: A/P Respiratory failure, s/p cardio-pulmonary arrest, anoxic encephalopathy, ESRD, sepsis, anemia, A Fib - Ventilatory support - Pulmonary toilets - Continue meds - Dialysis as per renal - Poor prognosis Critical care 40 min
[2016-08-02] MEDS: Cefepime 1 GM in Sodium Chloride 0.9% 100 ML IVPB SCH (08:57)
[2016-08-02] MEDS: Micafungin 100 MG in Sodium Chloride 0.9% 100 ML IVPB SCH (08:59)
[2016-08-02] MEDS: Multivitamin Vitamin B Complex (Nephro-Vite) Tab PO SCH (09:00)
[2016-08-02] MEDS: Pantoprazole 40 mg Susp UD PO SCH (09:01)
[2016-08-02] MEDS: Sevelamer Carb 0.8 gm/Packet PO SCH ×3 (09:02→17:09)
--- NOTE | 2016-08-02 12:04 | RAD ---
PROCEDURE: CHEST RADIOGRAPH, 1 VIEW HISTORY: pt intubated COMPARISON: Comparison 08/01/2016 FINDINGS: LUNGS: In situ ETT, tip of which lies approximately 2.76 cm above chandrakant. Right IJ central venous line with tip in the SVC also unchanged. NGT is present, the distal aspect of which is not seen on this exam due to underpenetration. Re- demonstrated are diffuse bilateral infiltrates consistent with pulmonary edema/ CHF on improved however from prior study. Small -medium-sized left-sided effusion. There may also be small right-sided effusion PLEURA: No pneumothorax or pleural fluid seen. CARDIOVASCULAR: Normal. OSSEOUS STRUCTURES: No significant abnormalities. VISUALIZED UPPER ABDOMEN: Normal. OTHER FINDINGS: None. IMPRESSION: In situ ETT, tip of which lies approximately 2.76 cm above chandrakant. Right IJ central venous line with tip in the SVC also unchanged. NGT is present, the distal aspect of which is not seen on this exam due to underpenetration. Re- demonstrated are diffuse bilateral infiltrates consistent with pulmonary edema/ CHF on improved however from prior study. Small -medium-sized left-sided effusion. There may also be small right-sided effusion
--- NOTE | 2016-08-02 19:03 | CP.PCM.PN ---
Subjective - Date & Time of Evaluation Date of Evaluation: 08/02/16 Time of Evaluation: 19:01 - Subjective Subjective: SEEN ON RENAL F/U HAD HD yesterday .. BP DROPPED WHILE ON HD REMAINS INTUBATED D/W FAMILY .. THEY agreed to a A DNR still unresponsive prog poor cont rx and support hd mon Objective - Vital Signs/Intake and Output Vital Signs (last 24 hours): Temp Pulse Resp BP Pulse Ox 98.9 F 77 19 106/68 100 08/02/16 16:00 08/02/16 17:52 08/02/16 17:52 08/02/16 17:52 08/02/16 17:52 Intake and Output: 08/02/16 08/03/16 18:59 06:59 Intake Total 1164 Balance 1164 - Medications Medications: Current Medications Acetaminophen (Tylenol 650mg/20.3ml Solution Ud) 650 mg PO Q6 PRN PRN Reason: fever Last Admin: 07/28/16 23:38 Dose: 650 mg Acetaminophen (Tylenol 325mg Tab) 650 mg PO Q6H PRN PRN Reason: Pain, moderate (4-7) Allopurinol (Zyloprim) 100 mg PO DAILY [facility] Last Admin: 08/02/16 09:03 Dose: 100 mg Artificial Tears (Artificial Tears) 2 drop OU Q6 PRN PRN Reason: Dry eyes Last Admin: 08/01/16 08:46 Dose: 2 drop Ascorbic Acid (Vitamin C 500 Mg Tab) 1,000 mg PO DAILY [facility] Last Admin: 08/02/16 09:02 Dose: 1,000 mg Bismuth Subsalicylate (Pepto-Bismol) 524 mg PO Q6H PRN PRN Reason: Diarrhea Carvedilol (Coreg) 12.5 mg PO BID [facility] Last Admin: 08/02/16 17:08 Dose: 12.5 mg Dextrose (Dextrose 50% Inj) 0 ml IVP STAT PRN; Protocol PRN Reason: Hypoglycemia Protocol Ezetimibe (Zetia) 10 mg PO HS [facility] Last Admin: 08/01/16 21:10 Dose: 10 mg Epoetin Jameel (Procrit) 4,000 unit SC MWF [facility] Last Admin: 08/01/16 08:50 Dose: 4,000 unit Ergocalciferol (Drisdol 50,000 Intl Units Cap) 1 cap PO QWK [facility] Glucagon (Glucagen Diagnostic Kit) 0 mg IM STAT PRN; Protocol PRN Reason: Hypoglycemia Protocol Heparin Sodium (Porcine) (Heparin) 5,000 units SC Q8 [facility] PRN Reason: Protocol Last Admin: 08/02/16 17:07 Dose: 5,000 units Vancomycin HCl 1 gm/ Sodium (Chloride) 250 mls @ 166.667 mls/hr IVPB MWF [facility] Last Admin: 08/01/16 08:51 Dose: 166.667 mls/hr Micafungin Sodium 100 mg/ (Sodium Chloride) 100 mls @ 100 mls/hr IVPB DAILY [facility] Last Admin: 08/02/16 08:59 Dose: 100 mls/hr Cefepime HCl 1 gm/ Sodium (Chloride) 100 mls @ 100 mls/hr IVPB DAILY [facility] Last Admin: 08/02/16 08:57 Dose: 100 mls/hr Piperacillin Sod/Tazobactam (Sod 2.25 gm/ Sodium Chloride) 100 mls @ 100 mls/ hr IVPB Q8 [facility] Last Admin: 08/02/16 17:09 Dose: 100 mls/hr Insulin Detemir (Levemir) 25 units SC HS [facility] Last Admin: 08/01/16 21:42 Dose: 25 units Insulin Human Regular (Humulin R) 0 units SC ACHS [facility] PRN Reason: Protocol Last Admin: 08/02/16 17:07 Dose: 4 units Midodrine (Proamatine) 10 mg PO Q8H [facility] Last Admin: 08/02/16 13:07 Dose: 10 mg Pantoprazole Sodium (Protonix Susp) 40 mg PO DAILY [facility] Last Admin: 08/02/16 09:01 Dose: 40 mg Sevelamer Carbonate (Renvela) 0.8 gm PO TID [facility] Last Admin: 08/02/16 17:09 Dose: 0.8 gm Sitagliptin Phosphate (Januvia) 25 mg PO DAILY [facility] Last Admin: 08/02/16 08:56 Dose: 25 mg Tamsulosin HCl (Flomax) 0.4 mg PO DAILY [facility] Last Admin: 08/02/16 09:01 Dose: 0.4 mg Vitamin B Complex/Vit C/Folic Acid (Nephro-Carlitos) 1 tab PO DAILY [facility] Last Admin: 08/02/16 09:00 Dose: 1 tab - Labs Labs: 05/27/17 04:20 08/02/16 04:20 PT 12.7 SECONDS (9.6-11.2) H 07/31/16 04:40 INR 1.22 (0.92-1.08) H 07/31/16 04:40 APTT 30.1 SECONDS (23.3-32.5) 07/31/16 04:40 - Constitutional Appears: Non-toxic - Head Exam Head Exam: NORMOCEPHALIC - ENT Exam ENT Exam: Mucous Membranes Moist - Respiratory Exam Respiratory Exam: NORMAL BREATHING PATTERN - Cardiovascular Exam Cardiovascular Exam: REGULAR RHYTHM - GI/Abdominal Exam GI & Abdominal Exam: Soft - Extremities Exam Extremities Exam: Full ROM, Normal Capillary Refill, Normal Inspection. absent : Joint Swelling, Pedal Edema - Neurological Exam Neurological Exam: Altered - Skin Skin Exam: Dry, Warm Assessment and Plan - Assessment and Plan (Free Text) Plan: mwf
[2016-08-02] MEDS: Artificial Tears Opht Soln OU PRN (21:19)
[2016-08-02] MEDS: Insulin Detemir 100 Units/ml Inj SC SCH (21:21)
[2016-08-03 05:59] LABS: ABG ALLEN TEST YES; ABG MECHANICAL RATE 14; ARTERIAL BLOOD GAS HCO3 27.5 mmol/L (21-28); ARTERIAL BLOOD GAS MODE PRVC/AC; ARTERIAL BLOOD GAS O2 CAPACITY 11.8 mL/dL (16-24); ARTERIAL BLOOD GAS O2 CONTENT 11.8 ML/dL (15-23); ARTERIAL BLOOD GAS PO2 103 mm/Hg (80-100); ARTERIAL BLOOD HGB O2 SAT 96.2 % (95.0-98.0); ATERIAL BLOOD GAS PEEP 5; CARBOXYHEMOGLOBIN 2.2 % (0.5-1.5); METHEMOGLOBIN 1.6 % (0.0-3.0)
[2016-08-03] MEDS: Insulin Regular 100 units/ml SC SCH ×4 (06:40→22:00)
--- NOTE | 2016-08-03 07:41 | CP.CCUPN ---
CCU Subjective - Physician Review Events Since Last Encounter (Free Text): 08/03/16 07:41 Patient on ventilator, on PRVC, TV 500, RR 14, FIO2 40%, no pressors, no response to verbal stimuli, no fever, events reviewed CCU Objective - Vital Signs / Intake & Output Vital Signs (Last 4 hours): Vital Signs Temp Pulse Resp BP Pulse Ox 08/03/16 07:29 98.9 F 81 18 114/66 100 08/03/16 06:00 99 H 20 121/72 100 08/03/16 04:00 98.2 F 101 H 19 118/74 98 Intake and Output (Last 8hrs): Intake & Output 08/02/16 08/03/16 08/03/16 22:59 06:59 14:59 Intake Total 375 700 110 Balance 375 700 110 Intake: Intake, Piggyback 100 100 Oral 110 110 Tube Feeding 165 550 Other 50 - Physical Exam Head: Positive for: Atraumatic, Normocephalic Pupils: Positive for: Non-Reactive Extroacular Muscles: Negative for: EOMI Conjunctiva: Negative for: Injected, Icteric Ears: Positive for: Normal Mouth: Positive for: Dry Pharnyx: Positive for: Normal Neck: Positive for: Other (Right IJ HD catheter site clean, dry, with no signs of erythema.) Respiratory/Chest: Positive for: Other (Intubated, on mechanical ventilation. B/ L air entry present but decreased at left lung cortez and lung bases. Scattered crackles present b/l.). Negative for: Wheezes Cardiovascular: Positive for: Regular Rate and Rhythm. Negative for: Murmurs Abdomen: Positive for: Normal Bowel Sounds. Negative for: Tenderness, Distention Genitourinary Male: Positive for: Other (Right groin TLC site clean, dry, with no surrounding erythema. ) Upper Extremity: Positive for: Edema (B/L upper extremity edema), Other ( Generalized anasarca which has remained stable compared to prior assessments) Lower Extremity: Positive for: Edema (2+ b/l LE), Other (Lower extremity YADIRA dressings.) Neurological: Positive for: Other (Unresponsive to verbal or painful stimuli. Pupils fixed. Corneal reflex present with occasional spontaneous blink. Corinal reflex present. No gag reflex. Not moving extremities. Occassionally moving head from sided to side.). Negative for: CN II-XII Intact Psychiatric: Negative for: Alert - Medications Active Medications: Active Medications Generic Name Dose Route Start Last Admin Trade Name Freq PRN Reason Stop Dose Admin Acetaminophen 650 mg 07/26/16 03:55 07/28/16 23:38 Tylenol 650mg/20.3ml Solution Ud PO 650 mg Q6 PRN Administration fever Acetaminophen 650 mg 07/29/16 10:45 Tylenol 325mg Tab PO Q6H PRN Pain, moderate (4-7) Allopurinol 100 mg 07/19/16 09:00 08/02/16 09:03 Zyloprim PO 100 mg DAILY [facility] Administration Artificial Tears 2 drop 07/26/16 16:18 08/02/16 21:19 Artificial Tears OU 2 drop Q6 PRN Administration Dry eyes Ascorbic Acid 1,000 mg 07/23/16 09:00 08/02/16 09:02 Vitamin C 500 Mg Tab PO 1,000 mg DAILY [facility] Administration Bismuth Subsalicylate 524 mg 07/18/16 20:13 Pepto-Bismol PO Q6H PRN Diarrhea Carvedilol 12.5 mg 07/19/16 09:00 08/02/16 17:08 Coreg PO 12.5 mg BID [facility] Administration Dextrose 0 ml 07/18/16 20:13 Dextrose 50% Inj IVP STAT PRN Hypoglycemia Protocol Protocol Ezetimibe 10 mg 07/18/16 22:00 08/02/16 21:19 Zetia PO 10 mg HS [facility] Administration Epoetin Jameel 4,000 unit 07/28/16 09:00 08/01/16 08:50 Procrit SC 4,000 unit MWF [facility] Administration Ergocalciferol 1 cap 07/18/16 20:13 Drisdol 50,000 Intl Units Cap PO QWK [facility] Glucagon 0 mg 07/18/16 20:13 Glucagen Diagnostic Kit IM STAT PRN Hypoglycemia Protocol Protocol Heparin Sodium (Porcine) 5,000 units 07/29/16 17:00 08/03/16 00:14 Heparin SC 5,000 units Q8 [facility] Administration Protocol Vancomycin HCl 1 gm/ Sodium 250 mls @ 166.667 mls/hr 07/28/16 09:00 08/01/16 08:51 Chloride IVPB 166.667 mls/hr MWF [facility] Administration Micafungin Sodium 100 mg/ 100 mls @ 100 mls/hr 07/27/16 13:45 08/02/16 08:59 Sodium Chloride IVPB 100 mls/hr DAILY [facility] Administration Cefepime HCl 1 gm/ Sodium 100 mls @ 100 mls/hr 07/31/16 11:00 08/02/16 08:57 Chloride IVPB 100 mls/hr DAILY [facility] Administration Piperacillin Sod/Tazobactam 100 mls @ 100 mls/hr 07/31/16 11:00 08/03/16 00: 15 Sod 2.25 gm/ Sodium Chloride IVPB 100 mls/hr Q8 [facility] Administration Insulin Detemir 25 units 07/18/16 22:00 08/02/16 21:21 Levemir SC 25 units HS [facility] Administration Insulin Human Regular 0 units 07/19/16 06:45 08/03/16 06:40 Humulin R SC 6 units ACHS [facility] Administration Protocol Midodrine 10 mg 07/29/16 20:30 08/03/16 04:12 Proamatine PO 10 mg Q8H [facility] Administration Pantoprazole Sodium 40 mg 07/29/16 11:00 08/02/16 09:01 Protonix Susp PO 40 mg DAILY [facility] Administration Sevelamer Carbonate 0.8 gm 07/19/16 09:00 08/02/16 17:09 Renvela PO 0.8 gm TID [facility] Administration Sitagliptin Phosphate 25 mg 07/19/16 09:00 08/02/16 08:56 Januvia PO 25 mg DAILY [facility] Administration Tamsulosin HCl 0.4 mg 07/19/16 09:00 08/02/16 09:01 Flomax PO 0.4 mg DAILY [facility] Administration Vitamin B Complex/Vit C/Folic Acid 1 tab 07/23/16 09:00 08/02/16 09:00 Nephro-Carlitos PO 1 tab DAILY [facility] Administration - Patient Studies Lab Studies: Lab Studies 08/03/16 08/03/16 08/02/16 Range/Units 06:37 04:41 21:20 pCO2 46 H (35-45) mm/Hg pO2 103 H (80-100) mm/Hg HCO3 27.5 (21-28) mmol/L ABG pH 7.40 (7.35-7.45) ABG Total CO2 29.9 H (22-28) mmol/L ABG O2 Saturation 100.0 H (95-98) % ABG O2 Content 11.8 L (15-23) ML/dL ABG Base Excess 3.3 H (-2.0-3.0) mmol/L ABG Hemoglobin 8.6 L (11.7-17.4) g/dL ABG Carboxyhemoglobin 2.2 H (0.5-1.5) % POC ABG HHb (Measured) 0.0 (0.0-5.0) % ABG Methemoglobin 1.6 (0.0-3.0) % ABG O2 Capacity 11.8 L (16-24) mL/dL Mason Test Yes A-a O2 Difference 125.0 mm/Hg Hgb O2 Saturation 96.2 (95.0-98.0) % Vent Mode Prvc/ac Mechanical Rate 14 FiO2 40.0 % Tidal Volume 500 PEEP 5 POC Glucose (mg/dL) 253 H 216 H (65-110) mg/dL Crossmatch 08/02/16 08/02/16 07/29/16 Range/Units 15:02 09:50 08:36 pCO2 (35-45) mm/Hg pO2 (80-100) mm/Hg HCO3 (21-28) mmol/L ABG pH (7.35-7.45) ABG Total CO2 (22-28) mmol/L ABG O2 Saturation (95-98) % ABG O2 Content (15-23) ML/dL ABG Base Excess (-2.0-3.0) mmol/L ABG Hemoglobin (11.7-17.4) g/dL ABG Carboxyhemoglobin (0.5-1.5) % POC ABG HHb (Measured) (0.0-5.0) % ABG Methemoglobin (0.0-3.0) % ABG O2 Capacity (16-24) mL/dL Mason Test A-a O2 Difference mm/Hg Hgb O2 Saturation (95.0-98.0) % Vent Mode Mechanical Rate FiO2 % Tidal Volume PEEP POC Glucose (mg/dL) 216 H 201 H (65-110) mg/dL Crossmatch See Detail Laboratory Results - last 24 hr 07/29/16 08/02/16 08/02/16 08:36 09:50 15:02 pCO2 pO2 HCO3 ABG pH ABG Total CO2 ABG O2 Saturation ABG O2 Content ABG Base Excess ABG Hemoglobin ABG Carboxyhemoglobin POC ABG HHb (Measured) ABG Methemoglobin ABG O2 Capacity Mason Test A-a O2 Difference Hgb O2 Saturation Vent Mode Mechanical Rate FiO2 Tidal Volume PEEP POC Glucose (mg/dL) 201 H 216 H Crossmatch See Detail 08/02/16 08/03/16 08/03/16 21:20 04:41 06:37 pCO2 46 H pO2 103 H HCO3 27.5 ABG pH 7.40 ABG Total CO2 29.9 H ABG O2 Saturation 100.0 H ABG O2 Content 11.8 L ABG Base Excess 3.3 H ABG Hemoglobin 8.6 L ABG Carboxyhemoglobin 2.2 H POC ABG HHb (Measured) 0.0 ABG Methemoglobin 1.6 ABG O2 Capacity 11.8 L Mason Test Yes A-a O2 Difference 125.0 Hgb O2 Saturation 96.2 Vent Mode Prvc/ac Mechanical Rate 14 FiO2 40.0 Tidal Volume 500 PEEP 5 POC Glucose (mg/dL) 216 H 253 H Crossmatch Fingerstick Blood Sugar Results: 253 Assessment/Plan - Assessment and Plan (Free Text) Assessment: A/P Respiratory failure, s/p cardio-pulmonary arrest, anoxic encephalopathy, ESRD, sepsis, anemia, A Fib - Ventilatory support - Pulmonary toilets - Continue meds - Dialysis as per renal - Poor prognosis Critical care 40 min
[2016-08-03] MEDS: Artificial Tears Opht Soln OU PRN ×2 (08:13→17:34)
[2016-08-03 08:15] LABS: MEAN CELL VOLUME 86.9 fl (80.0-94.0); MEAN CORPUSCULAR HGB CONC 32.2 g/dL (33.0-37.0)
[2016-08-03] MEDS: Cefepime 1 GM in Sodium Chloride 0.9% 100 ML IVPB SCH (08:15)
[2016-08-03] MEDS: Multivitamin Vitamin B Complex (Nephro-Vite) Tab PO SCH (08:15)
[2016-08-03] MEDS: Micafungin 100 MG in Sodium Chloride 0.9% 100 ML IVPB SCH (08:16)
[2016-08-03] MEDS: Pantoprazole 40 mg Susp UD PO SCH (08:17)
[2016-08-03] MEDS: Sevelamer Carb 0.8 gm/Packet PO SCH ×3 (08:17→17:37)
--- NOTE | 2016-08-03 09:10 | PN ---
DATE: 08/03/2016 The patient is seen and examined. Interim events noted. Consults noted and appreciated. The intens ivist and nephrology followup and intervention noted and appreciated. The patient remains in intensi ve care unit on ventilator, remains unresponsive, not able to provide informative history or review o f systems. PHYSICAL EXAMINATION: GENERAL: The patient is already intubated on mechanical ventilation in the intensive care unit, unre sponsive, not able to communicate. VITAL SIGNS: Stable. HEART: S1, S2 normal, regular. LUNGS: Good bilateral air entry. ABDOMEN: Soft, nontender. EXTREMITIES: The patient has chronic venous stasis. No calf swelling, no tenderness, no acute ische vashti. CENTRAL NERVOUS SYSTEM: Essentially unchanged. DIAGNOSTIC DATA: Available diagnostic data reviewed. Telemetry monitoring does not reveal significa nt arrhythmia. Overall, the patient's general medical condition is essentially the same. Long-term functional progn osis remains poor. PLAN: As ordered. Tang Solorio MD cc: [id number] TT: 08/03/2016 09:09:41 Confirmation # [id number] Dictation # [id number] mary
[2016-08-03 09:11] LABS: ALB/GLOB RATIO 0.8 (1.0-2.1); BILIRUBIN,TOTAL 1.2 mg/dl (0.2-1.3); CALCIUM 7.7 mg/dL (8.4-10.2); POTASSIUM 4.5 MMOL/L (3.6-5.0); TOTAL PROTEIN 6.8 G/DL (6.3-8.2)
--- NOTE | 2016-08-03 11:10 | CP.PCM.PN ---
Subjective - Date & Time of Evaluation Date of Evaluation: 08/03/16 Time of Evaluation: 08:10 - Subjective Subjective: SURGERY PROGRESS NOTE FOR DR. COBURN 80M seen and examined at bedside. Patient is intubated on a ventilator. Unresponsive to tactile stimuli. Objective - Vital Signs/Intake and Output Vital Signs (last 24 hours): Temp Pulse Resp BP Pulse Ox 98.9 F 70 18 99/56 L 100 08/03/16 07:45 08/03/16 10:00 08/03/16 10:00 08/03/16 10:00 08/03/16 10:00 Intake and Output: 08/03/16 08/03/16 06:59 18:59 Intake Total 755 520 Balance 755 520 - Medications Medications: Current Medications Acetaminophen (Tylenol 650mg/20.3ml Solution Ud) 650 mg PO Q6 PRN PRN Reason: fever Last Admin: 07/28/16 23:38 Dose: 650 mg Acetaminophen (Tylenol 325mg Tab) 650 mg PO Q6H PRN PRN Reason: Pain, moderate (4-7) Allopurinol (Zyloprim) 100 mg PO DAILY [facility] Last Admin: 08/03/16 08:15 Dose: 100 mg Artificial Tears (Artificial Tears) 2 drop OU Q6 PRN PRN Reason: Dry eyes Last Admin: 08/03/16 08:13 Dose: 2 drop Ascorbic Acid (Vitamin C 500 Mg Tab) 1,000 mg PO DAILY [facility] Last Admin: 08/03/16 08:18 Dose: 1,000 mg Bismuth Subsalicylate (Pepto-Bismol) 524 mg PO Q6H PRN PRN Reason: Diarrhea Carvedilol (Coreg) 12.5 mg PO BID [facility] Last Admin: 08/03/16 08:13 Dose: 12.5 mg Dextrose (Dextrose 50% Inj) 0 ml IVP STAT PRN; Protocol PRN Reason: Hypoglycemia Protocol Ezetimibe (Zetia) 10 mg PO HS [facility] Last Admin: 08/02/16 21:19 Dose: 10 mg Epoetin Jameel (Procrit) 4,000 unit SC MWF [facility] Last Admin: 08/01/16 08:50 Dose: 4,000 unit Ergocalciferol (Drisdol 50,000 Intl Units Cap) 1 cap PO QWK [facility] Glucagon (Glucagen Diagnostic Kit) 0 mg IM STAT PRN; Protocol PRN Reason: Hypoglycemia Protocol Heparin Sodium (Porcine) (Heparin) 5,000 units SC Q8 [facility] PRN Reason: Protocol Last Admin: 08/03/16 08:14 Dose: 5,000 units Vancomycin HCl 1 gm/ Sodium (Chloride) 250 mls @ 166.667 mls/hr IVPB MWF [facility] Last Admin: 08/01/16 08:51 Dose: 166.667 mls/hr Micafungin Sodium 100 mg/ (Sodium Chloride) 100 mls @ 100 mls/hr IVPB DAILY [facility] Last Admin: 08/03/16 08:16 Dose: 100 mls/hr Cefepime HCl 1 gm/ Sodium (Chloride) 100 mls @ 100 mls/hr IVPB DAILY [facility] Last Admin: 08/03/16 08:15 Dose: 100 mls/hr Piperacillin Sod/Tazobactam (Sod 2.25 gm/ Sodium Chloride) 100 mls @ 100 mls/ hr IVPB Q8 [facility] Last Admin: 08/03/16 08:18 Dose: 100 mls/hr Insulin Detemir (Levemir) [address] [facility] Last Admin: 08/02/16 21:21 Dose: 25 units Insulin Human Regular (Humulin R) 0 units SC ACHS [facility] PRN Reason: Protocol Last Admin: 08/03/16 06:40 Dose: 6 units Midodrine (Proamatine) 10 mg PO Q8H [facility] Last Admin: 08/03/16 04:12 Dose: 10 mg Pantoprazole Sodium (Protonix Susp) 40 mg PO DAILY [facility] Last Admin: 08/03/16 08:17 Dose: 40 mg Sevelamer Carbonate (Renvela) 0.8 gm PO TID [facility] Last Admin: 08/03/16 08:17 Dose: 0.8 gm Sitagliptin Phosphate (Januvia) 25 mg PO DAILY [facility] Last Admin: 08/03/16 08:15 Dose: 25 mg Tamsulosin HCl (Flomax) 0.4 mg PO DAILY [facility] Last Admin: 08/03/16 08:14 Dose: 0.4 mg Vitamin B Complex/Vit C/Folic Acid (Nephro-Carlitos) 1 tab PO DAILY [facility] Last Admin: 08/03/16 08:15 Dose: 1 tab - Labs Labs: 08/03/16 05:30 08/03/16 05:30 PT 12.7 SECONDS (9.6-11.2) H 07/31/16 04:40 INR 1.22 (0.92-1.08) H 07/31/16 04:40 APTT 30.1 SECONDS (23.3-32.5) 07/31/16 04:40 - Constitutional Appears: Unkempt - ENT Exam ENT Exam: Mucous Membranes Moist - Respiratory Exam Respiratory Exam: Clear to Ausculation Bilateral, NORMAL BREATHING PATTERN - Cardiovascular Exam Cardiovascular Exam: REGULAR RHYTHM, +S1, +S2 - Neurological Exam Neurological Exam: absent: Alert Assessment and Plan - Assessment and Plan (Free Text) Assessment: 80M w/ acute on chronic CKD, s/p code blue w/ acute resp failure and anoxic brain injury, intubated since 07/14 -Pt was made DNR by family yesterday but they are still considering tracheostomy -Tracheostomy is currently scheduled for Saturday 08/05 -Dw family when available Further recs discuss with Dr. Crispin Torres, PGY1
--- NOTE | 2016-08-03 14:52 | CP.PCM.PN ---
Subjective - Date & Time of Evaluation Date of Evaluation: 08/03/16 Time of Evaluation: 08:00 - Subjective Subjective: intubated on a ventilator. Unresponsive to tactile stimuli. afebrile Objective - Vital Signs/Intake and Output Vital Signs (last 24 hours): Temp Pulse Resp BP Pulse Ox 98.7 F 73 17 102/57 L 100 08/03/16 11:58 08/03/16 11:58 08/03/16 11:58 08/03/16 11:58 08/03/16 11:58 Intake and Output: 08/03/16 08/03/16 06:59 18:59 Intake Total 755 820 Balance 755 820 - Medications Medications: Current Medications Acetaminophen (Tylenol 650mg/20.3ml Solution Ud) 650 mg PO Q6 PRN PRN Reason: fever Last Admin: 07/28/16 23:38 Dose: 650 mg Acetaminophen (Tylenol 325mg Tab) 650 mg PO Q6H PRN PRN Reason: Pain, moderate (4-7) Allopurinol (Zyloprim) 100 mg PO DAILY [facility] Last Admin: 08/03/16 08:15 Dose: 100 mg Artificial Tears (Artificial Tears) 2 drop OU Q6 PRN PRN Reason: Dry eyes Last Admin: 08/03/16 08:13 Dose: 2 drop Ascorbic Acid (Vitamin C 500 Mg Tab) 1,000 mg PO DAILY [facility] Last Admin: 08/03/16 08:18 Dose: 1,000 mg Bismuth Subsalicylate (Pepto-Bismol) 524 mg PO Q6H PRN PRN Reason: Diarrhea Carvedilol (Coreg) 12.5 mg PO BID [facility] Last Admin: 08/03/16 08:13 Dose: 12.5 mg Dextrose (Dextrose 50% Inj) 0 ml IVP STAT PRN; Protocol PRN Reason: Hypoglycemia Protocol Ezetimibe (Zetia) 10 mg PO HS [facility] Last Admin: 08/02/16 21:19 Dose: 10 mg Epoetin Jameel (Procrit) 4,000 unit SC MWF [facility] Last Admin: 08/01/16 08:50 Dose: 4,000 unit Ergocalciferol (Drisdol 50,000 Intl Units Cap) 1 cap PO QWK [facility] Glucagon (Glucagen Diagnostic Kit) 0 mg IM STAT PRN; Protocol PRN Reason: Hypoglycemia Protocol Heparin Sodium (Porcine) (Heparin) 5,000 units SC Q8 [facility] PRN Reason: Protocol Last Admin: 08/03/16 08:14 Dose: 5,000 units Vancomycin HCl 1 gm/ Sodium (Chloride) 250 mls @ 166.667 mls/hr IVPB MWF [facility] Last Admin: 08/01/16 08:51 Dose: 166.667 mls/hr Micafungin Sodium 100 mg/ (Sodium Chloride) 100 mls @ 100 mls/hr IVPB DAILY [facility] Last Admin: 08/03/16 08:16 Dose: 100 mls/hr Cefepime HCl 1 gm/ Sodium (Chloride) 100 mls @ 100 mls/hr IVPB DAILY [facility] Last Admin: 08/03/16 08:15 Dose: 100 mls/hr Piperacillin Sod/Tazobactam (Sod 2.25 gm/ Sodium Chloride) 100 mls @ 100 mls/ hr IVPB Q8 [facility] Last Admin: 08/03/16 08:18 Dose: 100 mls/hr Insulin Detemir (Levemir) 25 units SC [facility] Last Admin: 08/02/16 21:21 Dose: 25 units Insulin Human Regular (Humulin R) 0 units SC ACHS [facility] PRN Reason: Protocol Last Admin: 08/03/16 11:46 Dose: 4 units Midodrine (Proamatine) 10 mg PO Q8H [facility] Last Admin: 08/03/16 11:48 Dose: 10 mg Pantoprazole Sodium (Protonix Susp) 40 mg PO DAILY [facility] Last Admin: 08/03/16 08:17 Dose: 40 mg Sevelamer Carbonate (Renvela) 0.8 gm PO TID [facility] Last Admin: 08/03/16 08:17 Dose: 0.8 gm Sitagliptin Phosphate (Januvia) 25 mg PO DAILY [facility] Last Admin: 08/03/16 08:15 Dose: 25 mg Tamsulosin HCl (Flomax) 0.4 mg PO DAILY [facility] Last Admin: 08/03/16 08:14 Dose: 0.4 mg Vitamin B Complex/Vit C/Folic Acid (Nephro-Carlitos) 1 tab PO DAILY [facility] Last Admin: 08/03/16 08:15 Dose: 1 tab - Labs Labs: 08/03/16 05:30 08/03/16 05:30 PT 12.7 SECONDS (9.6-11.2) H 07/31/16 04:40 INR 1.22 (0.92-1.08) H 07/31/16 04:40 APTT 30.1 SECONDS (23.3-32.5) 07/31/16 04:40 - Constitutional Appears: Confused, Cachectic - Head Exam Head Exam: NORMOCEPHALIC - Eye Exam Eye Exam: absent: Scleral icterus - ENT Exam ENT Exam: Mucous Membranes Dry - Neck Exam Neck Exam: absent: Lymphadenopathy - Respiratory Exam Respiratory Exam: Decreased Breath Sounds, Clear to Ausculation Bilateral - Cardiovascular Exam Cardiovascular Exam: REGULAR RHYTHM, +S1, +S2 - GI/Abdominal Exam GI & Abdominal Exam: Distended, Soft. absent: Tenderness - Rectal Exam Rectal Exam: Deferred - Exam Exam: NORMAL INSPECTION - Extremities Exam Extremities Exam: absent: Pedal Edema - Back Exam Back Exam: absent: CVA tenderness (L), CVA tenderness (R) - Neurological Exam Neurological Exam: Altered - Skin Skin Exam: Dry Assessment and Plan (1) Acute kidney failure Status: Acute (2) Cellulitis of right lower extremity Status: Acute (3) Bacteremia Status: Acute (4) Bacteremia Status: Acute (5) Anoxic encephalopathy syndrome Status: Acute (6) Anoxic-ischemic encephalopathy Status: Acute - Assessment and Plan (Free Text) Assessment: cont iv antibiotics poor prognosis
--- NOTE | 2016-08-03 16:58 | RAD ---
PROCEDURE: CHEST RADIOGRAPH, 1 VIEW HISTORY: pt intubated COMPARISON: Comparison chest dated 08/02/2016 FINDINGS: LUNGS: ETT tip lies approximately 2.8 cm above chandrakant. Right IJ dialysis catheter with tip in the SVC unchanged. Diffuse bilateral infiltrates consistent with pulmonary edema/ CHF and bilateral effusions. Note that the concomitant pneumonia not excluded. PLEURA: As above. CARDIOVASCULAR: Normal. OSSEOUS STRUCTURES: No significant abnormalities. VISUALIZED UPPER ABDOMEN: Normal. OTHER FINDINGS: None. IMPRESSION: ETT tip lies approximately 2.8 cm above chandrakant. Right IJ dialysis catheter with tip in the SVC unchanged. Diffuse bilateral infiltrates consistent with pulmonary edema/ CHF and bilateral effusions. Note that the concomitant pneumonia not excluded.
[2016-08-03] MEDS: Insulin Detemir 100 Units/ml Inj SC SCH (21:09)
--- NOTE | 2016-08-04 02:52 | CP.PCM.PN ---
Subjective - Date & Time of Evaluation Date of Evaluation: 08/04/16 Time of Evaluation: 02:50 - Subjective Subjective: SURGERY PROGRESS NOTE FOR DR. COBURN 80M seen and examined at bedside. Patient intubate and unresponsive to tactile stimuli. Objective - Vital Signs/Intake and Output Vital Signs (last 24 hours): Temp Pulse Resp BP Pulse Ox 99 F 78 16 105/57 L 100 08/04/16 00:00 08/04/16 02:00 08/04/16 02:00 08/04/16 02:00 08/04/16 02:00 Intake and Output: 08/03/16 08/04/16 18:59 06:59 Intake Total 1310 540 Output Total 50 Balance 1260 540 - Medications Medications: Current Medications Acetaminophen (Tylenol 650mg/20.3ml Solution Ud) 650 mg PO Q6 PRN PRN Reason: fever Last Admin: 07/28/16 23:38 Dose: 650 mg Acetaminophen (Tylenol 325mg Tab) 650 mg PO Q6H PRN PRN Reason: Pain, moderate (4-7) Allopurinol (Zyloprim) 100 mg PO DAILY [facility] Last Admin: 08/03/16 08:15 Dose: 100 mg Artificial Tears (Artificial Tears) 2 drop OU Q6 PRN PRN Reason: Dry eyes Last Admin: 08/03/16 17:34 Dose: 2 drop Ascorbic Acid (Vitamin C 500 Mg Tab) 1,000 mg PO DAILY [facility] Last Admin: 08/03/16 08:18 Dose: 1,000 mg Bismuth Subsalicylate (Pepto-Bismol) 524 mg PO Q6H PRN PRN Reason: Diarrhea Carvedilol (Coreg) 12.5 mg PO BID [facility] Last Admin: 08/03/16 17:35 Dose: 12.5 mg Dextrose (Dextrose 50% Inj) 0 ml IVP STAT PRN; Protocol PRN Reason: Hypoglycemia Protocol Ezetimibe (Zetia) 10 mg PO HS [facility] Last Admin: 08/03/16 21:10 Dose: 10 mg Epoetin Jameel (Procrit) 4,000 unit SC MWF [facility] Last Admin: 08/01/16 08:50 Dose: 4,000 unit Ergocalciferol (Drisdol 50,000 Intl Units Cap) 1 cap PO QWK [facility] Glucagon (Glucagen Diagnostic Kit) 0 mg IM STAT PRN; Protocol PRN Reason: Hypoglycemia Protocol Vancomycin HCl 1 gm/ Sodium (Chloride) 250 mls @ 166.667 mls/hr IVPB MWF [facility] Last Admin: 08/01/16 08:51 Dose: 166.667 mls/hr Micafungin Sodium 100 mg/ (Sodium Chloride) 100 mls @ 100 mls/hr IVPB DAILY [facility] Last Admin: 08/03/16 08:16 Dose: 100 mls/hr Cefepime HCl 1 gm/ Sodium (Chloride) 100 mls @ 100 mls/hr IVPB DAILY [facility] Last Admin: 08/03/16 08:15 Dose: 100 mls/hr Piperacillin Sod/Tazobactam (Sod 2.25 gm/ Sodium Chloride) 100 mls @ 100 mls/ hr IVPB Q8 [facility] Last Admin: 08/04/16 00:45 Dose: 100 mls/hr Insulin Detemir (Levemir) 25 units SC HS [facility] Last Admin: 08/03/16 21:09 Dose: 25 units Insulin Human Regular (Humulin R) 0 units SC ACHS [facility] PRN Reason: Protocol Last Admin: 08/03/16 22:00 Dose: Not Given Midodrine (Proamatine) 10 mg PO Q8H [facility] Last Admin: 08/03/16 21:10 Dose: 10 mg Pantoprazole Sodium (Protonix Susp) 40 mg PO DAILY [facility] Last Admin: 08/03/16 08:17 Dose: 40 mg Sevelamer Carbonate (Renvela) 0.8 gm PO TID [facility] Last Admin: 08/03/16 17:37 Dose: 0.8 gm Sitagliptin Phosphate (Januvia) 25 mg PO DAILY [facility] Last Admin: 08/03/16 08:15 Dose: 25 mg Tamsulosin HCl (Flomax) 0.4 mg PO DAILY [facility] Last Admin: 08/03/16 08:14 Dose: 0.4 mg Vitamin B Complex/Vit C/Folic Acid (Nephro-Carlitos) 1 tab PO DAILY [facility] Last Admin: 08/03/16 08:15 Dose: 1 tab - Labs Labs: 08/03/16 05:30 08/03/16 05:30 PT 12.7 SECONDS (9.6-11.2) H 07/31/16 04:40 INR 1.22 (0.92-1.08) H 07/31/16 04:40 APTT 30.1 SECONDS (23.3-32.5) 07/31/16 04:40 - Constitutional Appears: Other (intubated ) - Respiratory Exam Respiratory Exam: Clear to Ausculation Bilateral, NORMAL BREATHING PATTERN Additional comments: intubated - Cardiovascular Exam Cardiovascular Exam: REGULAR RHYTHM, +S1, +S2 - Neurological Exam Neurological Exam: absent: Alert, Awake Assessment and Plan - Assessment and Plan (Free Text) Assessment: 80M w/ acute on chronic CKD, s/p code blue w/ acute respiratory failure and anoxic brain injury, intubated since 07/14 -Pt was made DNR by family yesterday but they are still considering tracheostomy -Tracheostomy is currently scheduled for Saturday 08/05 -Discuss with family when available Further recs discuss with Dr. Crispin Torres, PGY1
[2016-08-04 05:32] LABS: ABG ALLEN TEST YES; ABG MECHANICAL RATE 14; ARTERIAL BLOOD GAS MODE A/C; ARTERIAL BLOOD GAS PO2 109 mm/Hg (80-100); ATERIAL BLOOD GAS PEEP 5; CARBOXYHEMOGLOBIN 2.1 % (0.5-1.5); HHB 0.2 % (0.0-5.0); METHEMOGLOBIN 1.7 % (0.0-3.0)
[2016-08-04] MEDS: Insulin Regular 100 units/ml SC SCH ×4 (06:34→21:42)
--- NOTE | 2016-08-04 08:44 | CP.CCUPN ---
CCU Subjective - Physician Review Subjective (Free Text): 08/04/16 10:03 The Patient was seen and examined at the bedside, Medical records reviewed, all clinical/lab/hemodynamic/radiographic data were reviewed and management issues were discussed and formulated, Events reviewed 80-year-old male with a pertinent medical history of HTN, diabetes, BPH and CKD Who initially presents to the ED on 07/10 with complaints of abdominal pain started 2x weeks ago and bloating. He was found to have acute on CKD and underwent CT abdomen/pelvis which showed a distended GB suspicious for cholecystitis, Surgery and nephrology was consulted, Currently also on IV antibiotics for aspiration pneumonia. He has been lethargic, and was sent for head and chest CT scan, after completion of the test, SENIOR PROJECT ENGINEER was called then changed in 3 minutes into code blue 07/14, He was coded for 10 minutes, received 4 rounds of Epinephrine also got IV Calcium gluconate, Intubated with 7.5 ET tube ROSC achieved and was transferred to ICU following cardiac arrest this morning, now orally intubated, Unresponsive to painful stimuli Hospital course also notable for A-Fib with RVR, S/p Amiodarone Patient remains intubate, Some nonpurposeful movements. Unresponsive to tactile or painful stimuli, does not follow commands.. Afebrile overnight Patient receive HD today Tolerating tube feeding with Nepro On IV antibiotics with IV Vancomycin, Zosyn, Cefepime and Micafungin, doses renally adjusted Scheduled for Tracheostomy on Saturday 08/05 CCU Objective - Vital Signs / Intake & Output Vital Signs (Last 4 hours): Vital Signs Temp Pulse Resp BP Pulse Ox 08/04/16 08:00 99.2 F 100 H 20 122/76 100 08/04/16 06:00 78 15 108/58 L 100 Intake and Output (Last 8hrs): Intake & Output 08/03/16 08/04/16 08/04/16 22:59 06:59 14:59 Intake Total 620 500 Output Total 100 200 Balance 520 300 Intake: IV 100 Intake, Piggyback 100 Oral 40 Tube Feeding 420 400 Free Water Flush 60 Output: Urine 100 200 Urethral ([place]) 150 Urine, Voided 100 50 - Physical Exam Physical Exam Limitations: Positive for: Altered Mental Status Head: Positive for: Atraumatic, Normocephalic Pupils: Positive for: Non-Reactive. Negative for: Pinpoint Extroacular Muscles: Negative for: EOMI Conjunctiva: Negative for: Injected, Icteric Ears: Positive for: Normal Mouth: Positive for: Dry Pharnyx: Positive for: Normal Neck: Positive for: Other (Right IJ HD catheter site clean, dry, with no signs of erythema.) Respiratory/Chest: Positive for: Other (Intubated, on mechanical ventilation. B/ L air entry present but decreased at left lung cortez and lung bases. Scattered crackles present b/l.). Negative for: Wheezes Cardiovascular: Positive for: Regular Rate and Rhythm. Negative for: Murmurs Abdomen: Positive for: Normal Bowel Sounds. Negative for: Tenderness, Distention Genitourinary Male: Positive for: Other (Right groin TLC site clean, dry, with no surrounding erythema. ) Upper Extremity: Positive for: Edema (B/L upper extremity edema), Other ( Generalized anasarca which has remained stable compared to prior assessments) Lower Extremity: Positive for: Edema (2+ b/l LE), Other (Lower extremity YADIRA dressings.) Neurological: Positive for: Other (Unresponsive to verbal or painful stimuli. Pupils fixed. Corneal reflex present with occasional spontaneous blink. Corinal reflex present. No gag reflex. Not moving extremities. Occassionally moving head from sided to side.). Negative for: CN II-XII Intact Psychiatric: Negative for: Alert - Medications Active Medications: Active Medications Generic Name Dose Route Start Last Admin Trade Name Freq PRN Reason Stop Dose Admin Acetaminophen 650 mg 07/26/16 03:55 07/28/16 23:38 Tylenol 650mg/20.3ml Solution Ud PO 650 mg Q6 PRN Administration fever Acetaminophen 650 mg 07/29/16 10:45 Tylenol 325mg Tab PO Q6H PRN Pain, moderate (4-7) Allopurinol 100 mg 07/19/16 09:00 08/03/16 08:15 Zyloprim PO 100 mg DAILY [facility] Administration Artificial Tears 2 drop 07/26/16 16:18 08/03/16 17:34 Artificial Tears OU 2 drop Q6 PRN Administration Dry eyes Ascorbic Acid 1,000 mg 07/23/16 09:00 08/03/16 08:18 Vitamin C 500 Mg Tab PO 1,000 mg DAILY [facility] Administration Bismuth Subsalicylate 524 mg 07/18/16 20:13 Pepto-Bismol PO Q6H PRN Diarrhea Carvedilol 12.5 mg 07/19/16 09:00 08/03/16 17:35 Coreg PO 12.5 mg BID [facility] Administration Dextrose 0 ml 07/18/16 20:13 Dextrose 50% Inj IVP STAT PRN Hypoglycemia Protocol Protocol Ezetimibe 10 mg 07/18/16 22:00 08/03/16 21:10 Zetia PO 10 mg HS [facility] Administration Epoetin Jameel 4,000 unit 07/28/16 09:00 08/01/16 08:50 Procrit SC 4,000 unit MWF [facility] Administration Ergocalciferol 1 cap 07/18/16 20:13 Drisdol 50,000 Intl Units Cap PO QWK [facility] Glucagon 0 mg 07/18/16 20:13 Glucagen Diagnostic Kit IM STAT PRN Hypoglycemia Protocol Protocol Vancomycin HCl 1 gm/ Sodium 250 mls @ 166.667 mls/hr 07/28/16 09:00 08/01/16 08:51 Chloride IVPB 166.667 mls/hr MWF [facility] Administration Micafungin Sodium 100 mg/ 100 mls @ 100 mls/hr 07/27/16 13:45 08/03/16 08:16 Sodium Chloride IVPB 100 mls/hr DAILY [facility] Administration Cefepime HCl 1 gm/ Sodium 100 mls @ 100 mls/hr 07/31/16 11:00 08/03/16 08:15 Chloride IVPB 100 mls/hr DAILY [facility] Administration Piperacillin Sod/Tazobactam 100 mls @ 100 mls/hr 07/31/16 11:00 08/04/16 00: 45 Sod 2.25 gm/ Sodium Chloride IVPB 100 mls/hr Q8 [facility] Administration Insulin Detemir 25 units 07/18/16 22:00 08/03/16 21:09 Levemir SC 25 units HS [facility] Administration Insulin Human Regular 0 units 07/19/16 06:45 08/04/16 06:34 Humulin R SC Not Given ACHS [facility] Protocol Midodrine 10 mg 07/29/16 20:30 08/04/16 04:00 Proamatine PO 10 mg Q8H [facility] Administration Pantoprazole Sodium 40 mg 07/29/16 11:00 08/03/16 08:17 Protonix Susp PO 40 mg DAILY [facility] Administration Sevelamer Carbonate 0.8 gm 07/19/16 09:00 08/03/16 17:37 Renvela PO 0.8 gm TID [facility] Administration Sitagliptin Phosphate 25 mg 07/19/16 09:00 08/03/16 08:15 Januvia PO 25 mg DAILY [facility] Administration Tamsulosin HCl 0.4 mg 07/19/16 09:00 08/03/16 08:14 Flomax PO 0.4 mg DAILY [facility] Administration Vitamin B Complex/Vit C/Folic Acid 1 tab 07/23/16 09:00 08/03/16 08:15 Nephro-Carlitos PO 1 tab DAILY [facility] Administration - Patient Studies Lab Studies: Lab Studies 08/04/16 08/04/16 08/03/16 Range/Units 05: 05:22 21:59 pCO2 45 (35-45) mm/Hg pO2 109 H (80-100) mm/Hg HCO3 27.0 (21-28) mmol/L ABG pH 7.40 (7.35-7.45) ABG Total CO2 29.3 H (22-28) mmol/L ABG O2 Saturation 99.8 H (95-98) % ABG O2 Content 12.0 L (15-23) ML/dL ABG Base Excess 2.7 (-2.0-3.0) mmol/L ABG Hemoglobin 8.7 L (11.7-17.4) g/dL ABG Carboxyhemoglobin 2.1 H (0.5-1.5) % POC ABG HHb (Measured) 0.2 (0.0-5.0) % ABG Methemoglobin 1.7 (0.0-3.0) % ABG O2 Capacity 12.0 L (16-24) mL/dL Mason Test Yes A-a O2 Difference 120.0 mm/Hg Hgb O2 Saturation 96.0 (95.0-98.0) % Vent Mode A/c Mechanical Rate 14 FiO2 40.0 % Tidal Volume 500 PEEP 5 Sodium (132-148) mmol/l Potassium (3.6-5.0) MMOL/L Chloride (98-107) mmol/L Carbon Dioxide (22-30) mmol/L Anion Gap (10-20) BUN (9-20) mg/dl Creatinine (0.8-1.5) mg/dL Est GFR ( Amer) Est GFR (Non-Af Amer) POC Glucose (mg/dL) 92 199 H (65-110) mg/dL Random Glucose (75-110) mg/dL Calcium (8.4-10.2) mg/dL Total Bilirubin (0.2-1.3) mg/dl AST (17-59) U/L ALT (21-72) U/L Alkaline Phosphatase (38-126) U/L Total Protein (6.3-8.2) G/DL Albumin (3.5-5.0) g/dL Globulin (2.2-3.9) gm/dL Albumin/Globulin Ratio (1.0-2.1) 08/03/16 08/03/16 08/03/16 Range/Units 17:30 10:55 05:30 pCO2 (35-45) mm/Hg pO2 (80-100) mm/Hg HCO3 (21-28) mmol/L ABG pH (7.35-7.45) ABG Total CO2 (22-28) mmol/L ABG O2 Saturation (95-98) % ABG O2 Content (15-23) ML/dL ABG Base Excess (-2.0-3.0) mmol/L ABG Hemoglobin (11.7-17.4) g/dL ABG Carboxyhemoglobin (0.5-1.5) % POC ABG HHb (Measured) (0.0-5.0) % ABG Methemoglobin (0.0-3.0) % ABG O2 Capacity (16-24) mL/dL Mason Test A-a O2 Difference mm/Hg Hgb O2 Saturation (95.0-98.0) % Vent Mode Mechanical Rate FiO2 % Tidal Volume PEEP Sodium 139 (132-148) mmol/l Potassium 4.5 (3.6-5.0) MMOL/L Chloride 102 (98-107) mmol/L Carbon Dioxide 27 (22-30) mmol/L Anion Gap 15 (10-20) BUN 70 H (9-20) mg/dl Creatinine 5.0 H (0.8-1.5) mg/dL Est GFR ( Amer) 14 Est GFR (Non-Af Amer) 11 POC Glucose (mg/dL) 200 H 227 H (65-110) mg/dL Random Glucose 204 H (75-110) mg/dL Calcium 7.7 L (8.4-10.2) mg/dL Total Bilirubin 1.2 (0.2-1.3) mg/dl AST 58 (17-59) U/L ALT 52 (21-72) U/L Alkaline Phosphatase 310 H (38-126) U/L Total Protein 6.8 (6.3-8.2) G/DL Albumin 2.6 L (3.5-5.0) g/dL Globulin 3.2 (2.2-3.9) gm/dL Albumin/Globulin Ratio 0.8 L (1.0-2.1) Laboratory Results - last 24 hr 08/03/16 08/03/16 08/03/16 05:30 10:55 17:30 pCO2 pO2 HCO3 ABG pH ABG Total CO2 ABG O2 Saturation ABG O2 Content ABG Base Excess ABG Hemoglobin ABG Carboxyhemoglobin POC ABG HHb (Measured) ABG Methemoglobin ABG O2 Capacity Mason Test A-a O2 Difference Hgb O2 Saturation Vent Mode Mechanical Rate FiO2 Tidal Volume PEEP Sodium 139 Potassium 4.5 Chloride 102 Carbon Dioxide 27 Anion Gap 15 BUN 70 H Creatinine 5.0 H Est GFR ( Amer) 14 Est GFR (Non-Af Amer) 11 POC Glucose (mg/dL) 227 H 200 H Random Glucose 204 H Calcium 7.7 L Total Bilirubin 1.2 AST 58 ALT 52 Alkaline Phosphatase 310 H Total Protein 6.8 Albumin 2.6 L Globulin 3.2 Albumin/Globulin Ratio 0.8 L 08/03/16 08/04/16 08/04/16 21:59 05:22 05:28 pCO2 45 pO2 109 H HCO3 27.0 ABG pH 7.40 ABG Total CO2 29.3 H ABG O2 Saturation 99.8 H ABG O2 Content 12.0 L ABG Base Excess 2.7 ABG Hemoglobin 8.7 L ABG Carboxyhemoglobin 2.1 H POC ABG HHb (Measured) 0.2 ABG Methemoglobin 1.7 ABG O2 Capacity 12.0 L Mason Test Yes A-a O2 Difference 120.0 Hgb O2 Saturation 96.0 Vent Mode A/c Mechanical Rate 14 FiO2 40.0 Tidal Volume 500 PEEP 5 Sodium Potassium Chloride Carbon Dioxide Anion Gap BUN Creatinine Est GFR ( Amer) Est GFR (Non-Af Amer) POC Glucose (mg/dL) 199 H 92 Random Glucose Calcium Total Bilirubin AST ALT Alkaline Phosphatase Total Protein Albumin Globulin Albumin/Globulin Ratio Fingerstick Blood Sugar Results: 92 Critical Care Progress Note - Ventilator Checklist Head of Bed 30 Degrees: Yes Daily Sedation Vacation: Yes Daily Assessment of Readiness to Wean: Yes Daily Spontaneous Breathing Trial: Yes PUD Prophalyxis: Yes DVT Prophylaxis: Yes Oral Care with Chlorhexidine Gluconate {CHG}: Yes - Nutrition Nutrition: Nutrition Category Date Time Status NPO Diet [DIET] Diets 08/04/16 Dinner Active Assessment/Plan (1) Cardiac arrest Current Visit: Yes Status: Acute Comment: No neurological improvements, unresponsive to tactile or painful stimuli. Remains intubated, not breathing over the vent Unresponsive to painful stimuli EEG reviewed Neurology evaluation appreciated Frequent neuro-check Scheduled for Tracheostomy tomorrow Saturday 08/05 (2) Anoxic brain injury Current Visit: Yes Status: Acute Priority: High Comment: Patient is DNR Scheduled for Tracheostomy tomorrow Saturday 08/05 Poor prognosis, Family aware (3) Aspiration pneumonia Current Visit: Yes Status: Acute Comment: Afebrile overnight IV Vancomycin, Zosyn, Cefepime and Micafungin Off pressors Aggressive Pulmonary toilets ID evaluation appreciated (4) Acute kidney failure Current Visit: Yes Status: Acute Comment: Nephrology evaluation appreciated Patient receive HD today HD TIW (MWF) (5) Acute cholecystitis Current Visit: Yes Status: Acute
[2016-08-04] MEDS: Artificial Tears Opht Soln OU PRN (09:47)
[2016-08-04] MEDS: Cefepime 1 GM in Sodium Chloride 0.9% 100 ML IVPB SCH (09:48)
[2016-08-04] MEDS: Micafungin 100 MG in Sodium Chloride 0.9% 100 ML IVPB SCH (09:48)
[2016-08-04] MEDS: Sevelamer Carb 0.8 gm/Packet PO SCH ×3 (09:49→16:40)
[2016-08-04] MEDS: Epoetin Alfa 4000 UNIT/ML Inj SC SCH (09:49)
--- NOTE | 2016-08-04 10:20 | PN ---
DATE: 08/04/2016 The patient is seen and examined. Interim events noted. Consults noted and appreciated. Nephrology and motion picture projectionist intervention noted and appreciated. Surgical followup noted and appreciated. The p atient is for possible tracheostomy tomorrow. The patient remains on ventilator, not able to provide informative history or review of systems. Also he remains unresponsive. PHYSICAL EXAMINATION: GENERAL: The patient is orally intubated on mechanical ventilation via endotracheal tube, tolerating current vent setting without any acute respiratory distress. VITAL SIGNS: Stable. HEART: S1, S2 normal, regular. LUNGS: Good bilateral air exchange. ABDOMEN: Soft, nontender. EXTREMITIES: No edema, no calf swelling, no tenderness, no acute ischemia. CENTRAL NERVOUS SYSTEM: Essentially unchanged, and the patient remains unresponsive. DIAGNOSTIC DATA: Available diagnostic data reviewed. Overall, the patient's general medical condition is essentially the same. Long-term functional progn osis remains poor. PLAN: As ordered. Case and plan discussed with motion picture projectionist. Tang Solorio MD cc: [id number] TT: 08/04/2016 10:19:24 Confirmation # [id number] Dictation # [id number] mary
--- NOTE | 2016-08-04 14:02 | CP.PCM.PN ---
Subjective - Date & Time of Evaluation Date of Evaluation: 08/04/16 Time of Evaluation: 07:00 - Subjective Subjective: unresponsive for trach/ peg in am Objective - Vital Signs/Intake and Output Vital Signs (last 24 hours): Temp Pulse Resp BP Pulse Ox 98.9 F 81 18 126/97 H 100 08/04/16 12:00 08/04/16 12:00 08/04/16 12:00 08/04/16 12:00 08/04/16 12:00 Intake and Output: 08/04/16 08/04/16 06:59 18:59 Intake Total 740 550 Output Total 300 2000 Balance 440 -1450 - Medications Medications: Current Medications Acetaminophen (Tylenol 650mg/20.3ml Solution Ud) 650 mg PO Q6 PRN PRN Reason: fever Last Admin: 07/28/16 23:38 Dose: 650 mg Acetaminophen (Tylenol 325mg Tab) 650 mg PO Q6H PRN PRN Reason: Pain, moderate (4-7) Allopurinol (Zyloprim) 100 mg PO DAILY [facility] Last Admin: 08/03/16 08:15 Dose: 100 mg Artificial Tears (Artificial Tears) 2 drop OU Q6 PRN PRN Reason: Dry eyes Last Admin: 08/04/16 09:47 Dose: 2 drop Ascorbic Acid (Vitamin C 500 Mg Tab) 1,000 mg PO DAILY [facility] Last Admin: 08/03/16 08:18 Dose: 1,000 mg Bismuth Subsalicylate (Pepto-Bismol) 524 mg PO Q6H PRN PRN Reason: Diarrhea Carvedilol (Coreg) 12.5 mg PO BID [facility] Last Admin: 08/04/16 09:47 Dose: Not Given Dextrose (Dextrose 50% Inj) 0 ml IVP STAT PRN; Protocol PRN Reason: Hypoglycemia Protocol Ezetimibe (Zetia) 10 mg PO HS [facility] Last Admin: 08/03/16 21:10 Dose: 10 mg Epoetin Jameel (Procrit) 4,000 unit SC MWF [facility] Last Admin: 08/04/16 09:49 Dose: 4,000 unit Ergocalciferol (Drisdol 50,000 Intl Units Cap) 1 cap PO QWK [facility] Glucagon (Glucagen Diagnostic Kit) 0 mg IM STAT PRN; Protocol PRN Reason: Hypoglycemia Protocol Vancomycin HCl 1 gm/ Sodium (Chloride) 250 mls @ 166.667 mls/hr IVPB MWF [facility] Last Admin: 08/04/16 09:49 Dose: 166.667 mls/hr Micafungin Sodium 100 mg/ (Sodium Chloride) 100 mls @ 100 mls/hr IVPB DAILY [facility] Last Admin: 08/04/16 09:48 Dose: 100 mls/hr Cefepime HCl 1 gm/ Sodium (Chloride) 100 mls @ 100 mls/hr IVPB DAILY [facility] Last Admin: 08/04/16 09:48 Dose: 100 mls/hr Piperacillin Sod/Tazobactam (Sod 2.25 gm/ Sodium Chloride) 100 mls @ 100 mls/ hr IVPB Q8 [facility] Last Admin: 08/04/16 09:50 Dose: 100 mls/hr Insulin Detemir (Levemir) 25 units SC [facility] Last Admin: 08/03/16 21:09 Dose: 25 units Insulin Human Regular (Humulin R) 0 units SC [facility] PRN Reason: Protocol Last Admin: 08/04/16 12:18 Dose: Not Given Midodrine (Proamatine) 10 mg PO Q8H [facility] Last Admin: 08/04/16 04:00 Dose: 10 mg Pantoprazole Sodium (Protonix Susp) 40 mg PO DAILY [facility] Last Admin: 08/03/16 08:17 Dose: 40 mg Sevelamer Carbonate (Renvela) 0.8 gm PO TID [facility] Last Admin: 08/04/16 12:18 Dose: Not Given Sitagliptin Phosphate (Januvia) 25 mg PO DAILY [facility] Last Admin: 08/03/16 08:15 Dose: 25 mg Tamsulosin HCl (Flomax) 0.4 mg PO DAILY [facility] Last Admin: 08/03/16 08:14 Dose: 0.4 mg Vitamin B Complex/Vit C/Folic Acid (Nephro-Carlitos) 1 tab PO DAILY [facility] Last Admin: 08/03/16 08:15 Dose: 1 tab - Labs Labs: 08/03/16 05:30 08/03/16 05:30 PT 12.7 SECONDS (9.6-11.2) H 07/31/16 04:40 INR 1.22 (0.92-1.08) H 07/31/16 04:40 APTT 30.1 SECONDS (23.3-32.5) 07/31/16 04:40 - Constitutional Appears: Confused, Chronically Ill - Head Exam Head Exam: NORMOCEPHALIC - Eye Exam Eye Exam: PERRL. absent: Scleral icterus - ENT Exam ENT Exam: Mucous Membranes Dry - Neck Exam Neck Exam: absent: Lymphadenopathy - Respiratory Exam Respiratory Exam: Decreased Breath Sounds, Rhonchi - Cardiovascular Exam Cardiovascular Exam: REGULAR RHYTHM, +S1, +S2 - GI/Abdominal Exam GI & Abdominal Exam: Distended, Soft. absent: Tenderness - Rectal Exam Rectal Exam: Deferred - Exam Exam: NORMAL INSPECTION - Extremities Exam Extremities Exam: absent: Calf Tenderness, Pedal Edema - Neurological Exam Neurological Exam: Alert, Awake, Oriented x3 - Psychiatric Exam Psychiatric exam: Normal Mood - Skin Skin Exam: Dry Assessment and Plan (1) Acute kidney failure Status: Acute (2) Cellulitis of right lower extremity Status: Acute (3) Bacteremia Status: Acute (4) Bacteremia Status: Acute (5) Anoxic encephalopathy syndrome Status: Acute (6) Anoxic-ischemic encephalopathy Status: Acute
[2016-08-04] MEDS: Multivitamin Vitamin B Complex (Nephro-Vite) Tab PO SCH (16:39)
[2016-08-04] MEDS: Pantoprazole 40 mg Susp UD PO SCH (16:40)
[2016-08-04] MEDS: Insulin Detemir 100 Units/ml Inj SC SCH (21:42)
--- NOTE | 2016-08-04 22:59 | CP.PCM.PN ---
Subjective - Date & Time of Evaluation Date of Evaluation: 08/04/16 Time of Evaluation: 14:00 - Subjective Subjective: SEEN ON RENAL F/U IN ICU ALL EMR REVIEWED .. ALL LABS REVIEWED REMAINS INTUBATED .. FOR SHAHIDA TOMORROW RECIEVED HIS HD TODAY WITH UF OF 2L REMAINS STATUSS DESIRE WAS MADE DNR BY FAMILY Objective - Vital Signs/Intake and Output Vital Signs (last 24 hours): Temp Pulse Resp BP Pulse Ox 98.6 F 85 16 109/66 100 08/04/16 15:52 08/04/16 18:00 08/04/16 18:00 08/04/16 18:00 08/04/16 18:00 Intake and Output: 08/04/16 08/05/16 18:59 06:59 Intake Total 1334 Output Total 1999 Balance -666 - Medications Medications: Current Medications Acetaminophen (Tylenol 650mg/20.3ml Solution Ud) 650 mg PO Q6 PRN PRN Reason: fever Last Admin: 07/28/16 23:38 Dose: 650 mg Acetaminophen (Tylenol 325mg Tab) 650 mg PO Q6H PRN PRN Reason: Pain, moderate (4-7) Allopurinol (Zyloprim) 100 mg PO DAILY [facility] Last Admin: 08/04/16 16:43 Dose: 100 mg Artificial Tears (Artificial Tears) 2 drop OU Q6 PRN PRN Reason: Dry eyes Last Admin: 08/04/16 09:47 Dose: 2 drop Ascorbic Acid (Vitamin C 500 Mg Tab) 1,000 mg PO DAILY [facility] Last Admin: 08/04/16 16:41 Dose: 1,000 mg Bismuth Subsalicylate (Pepto-Bismol) 524 mg PO Q6H PRN PRN Reason: Diarrhea Carvedilol (Coreg) 12.5 mg PO BID [facility] Last Admin: 08/04/16 16:34 Dose: 12.5 mg Dextrose (Dextrose 50% Inj) 0 ml IVP STAT PRN; Protocol PRN Reason: Hypoglycemia Protocol Ezetimibe (Zetia) 10 mg PO HS [facility] Last Admin: 08/04/16 20:59 Dose: 10 mg Epoetin Jameel (Procrit) 4,000 unit SC MWF [facility] Last Admin: 08/04/16 09:49 Dose: 4,000 unit Ergocalciferol (Drisdol 50,000 Intl Units Cap) 1 cap PO QWK [facility] Glucagon (Glucagen Diagnostic Kit) 0 mg IM STAT PRN; Protocol PRN Reason: Hypoglycemia Protocol Vancomycin HCl 1 gm/ Sodium (Chloride) 250 mls @ 166.667 mls/hr IVPB MWF [facility] Last Admin: 08/04/16 09:49 Dose: 166.667 mls/hr Micafungin Sodium 100 mg/ (Sodium Chloride) 100 mls @ 100 mls/hr IVPB DAILY [facility] Last Admin: 08/04/16 09:48 Dose: 100 mls/hr Cefepime HCl 1 gm/ Sodium (Chloride) 100 mls @ 100 mls/hr IVPB DAILY [facility] Last Admin: 08/04/16 09:48 Dose: 100 mls/hr Piperacillin Sod/Tazobactam (Sod 2.25 gm/ Sodium Chloride) 100 mls @ 100 mls/ hr IVPB Q8 [facility] Last Admin: 08/04/16 16:42 Dose: 100 mls/hr Insulin Detemir (Levemir) 25 units SC HS [facility] Last Admin: 08/04/16 21:42 Dose: 25 units Insulin Human Regular (Humulin R) 0 units SC ACHS [facility] PRN Reason: Protocol Last Admin: 08/04/16 21:42 Dose: Not Given Midodrine (Proamatine) 10 mg PO Q8H [facility] Last Admin: 08/04/16 20:59 Dose: 10 mg Pantoprazole Sodium (Protonix Susp) 40 mg PO DAILY [facility] Last Admin: 08/04/16 16:40 Dose: 40 mg Sevelamer Carbonate (Renvela) 0.8 gm PO TID [facility] Last Admin: 08/04/16 16:40 Dose: 0.8 gm Sitagliptin Phosphate (Januvia) 25 mg PO DAILY [facility] Last Admin: 08/04/16 16:39 Dose: 25 mg Tamsulosin HCl (Flomax) 0.4 mg PO DAILY [facility] Last Admin: 08/04/16 16:36 Dose: 0.4 mg Vitamin B Complex/Vit C/Folic Acid (Nephro-Carlitos) 1 tab PO DAILY [facility] Last Admin: 08/04/16 16:39 Dose: 1 tab - Labs Labs: 08/03/16 05:30 08/03/16 05:30 PT 12.7 SECONDS (9.6-11.2) H 07/31/16 04:40 INR 1.22 (0.92-1.08) H 07/31/16 04:40 APTT 30.1 SECONDS (23.3-32.5) 07/31/16 04:40 Assessment and Plan - Assessment and Plan (Free Text) Assessment: A ON CKD .. ON HD M W F ANEMIA OF CKD .. ON EPO VDRF ON VENT MULTIPLE CO MORBIDITIES P : C/O CURRENT CARE
[2016-08-05 05:11] LABS: ABG ALLEN TEST YES; ABG MECHANICAL RATE 14; ARTERIAL BLOOD GAS HCO3 28.4 mmol/L (21-28); ARTERIAL BLOOD GAS MODE A/C; ARTERIAL BLOOD GAS O2 CAPACITY 12.7 mL/dL (16-24); ARTERIAL BLOOD GAS O2 CONTENT 12.7 ML/dL (15-23); ARTERIAL BLOOD GAS PH 7.43 (7.35-7.45); ARTERIAL BLOOD GAS PO2 131 mm/Hg (80-100); ARTERIAL BLOOD HGB O2 SAT 96.3 % (95.0-98.0); ATERIAL BLOOD GAS PEEP 5; CARBOXYHEMOGLOBIN 1.7 % (0.5-1.5); HHB 0.3 % (0.0-5.0); METHEMOGLOBIN 1.7 % (0.0-3.0)
[2016-08-05 05:28] LABS: HEMATOCRIT 25.2 % (35.0-51.0); MEAN CELL VOLUME 87.6 fl (80.0-94.0); MEAN CORPUSCULAR HEMOGLOBIN 27.7 pg (27.0-31.0); MEAN CORPUSCULAR HGB CONC 31.6 g/dL (33.0-37.0); RED CELL DISTRIBUTION WIDTH 19.2 % (11.5-14.5); WHITE BLOOD COUNT 8.6 K/uL (4.8-10.8)
[2016-08-05 05:40] LABS: ALB/GLOB RATIO 0.6 (1.0-2.1); CALCIUM 7.6 mg/dL (8.4-10.2); POTASSIUM 4.3 MMOL/L (3.6-5.0); TOTAL PROTEIN 6.5 G/DL (6.3-8.2)
[2016-08-05 05:46] LABS: PARTIAL THROMBOPLASTIN TIME 28.5 SECONDS (23.3-32.5)
--- NOTE | 2016-08-05 09:00 | CP.PCM.PN ---
Subjective - Date & Time of Evaluation Date of Evaluation: 08/05/16 Time of Evaluation: 08:58 - Subjective Subjective: SURGERY NOTE FOR DR. COBURN 80M seen and examined at bedside. Patient intubated and unresponsive to tactile stimuli. Objective - Vital Signs/Intake and Output Vital Signs (last 24 hours): Temp Pulse Resp BP Pulse Ox 99.0 F 77 17 110/67 97 08/05/16 07:40 08/05/16 07:40 08/05/16 07:40 08/05/16 07:40 08/05/16 07:40 - Medications Medications: Current Medications Acetaminophen (Tylenol 650mg/20.3ml Solution Ud) 650 mg PO Q6 PRN PRN Reason: fever Last Admin: 07/28/16 23:38 Dose: 650 mg Acetaminophen (Tylenol 325mg Tab) 650 mg PO Q6H PRN PRN Reason: Pain, moderate (4-7) Allopurinol (Zyloprim) 100 mg PO DAILY [facility] Last Admin: 08/04/16 16:43 Dose: 100 mg Artificial Tears (Artificial Tears) 2 drop OU Q6 PRN PRN Reason: Dry eyes Last Admin: 08/04/16 09:47 Dose: 2 drop Ascorbic Acid (Vitamin C 500 Mg Tab) 1,000 mg PO DAILY [facility] Last Admin: 08/04/16 16:41 Dose: 1,000 mg Bismuth Subsalicylate (Pepto-Bismol) 524 mg PO Q6H PRN PRN Reason: Diarrhea Carvedilol (Coreg) 12.5 mg PO BID [facility] Last Admin: 08/04/16 16:34 Dose: 12.5 mg Dextrose (Dextrose 50% Inj) 0 ml IVP STAT PRN; Protocol PRN Reason: Hypoglycemia Protocol Ezetimibe (Zetia) 10 mg PO HS [facility] Last Admin: 08/04/16 20:59 Dose: 10 mg Epoetin Jameel (Procrit) 4,000 unit [place] [facility] Last Admin: 08/04/16 09:49 Dose: 4,000 unit Ergocalciferol (Drisdol 50,000 Intl Units Cap) 1 cap PO QWK [facility] Glucagon (Glucagen Diagnostic Kit) 0 mg IM STAT PRN; Protocol PRN Reason: Hypoglycemia Protocol Vancomycin HCl 1 gm/ Sodium (Chloride) 250 mls @ 166.667 mls/hr [place]PB [facility] [place] Admin: 08/04/16 09:49 Dose: 166.667 mls/hr Micafungin Sodium 100 mg/ (Sodium Chloride) 100 mls @ 100 mls/hr IVPB DAILY [facility] Last Admin: 08/04/16 09:48 Dose: 100 mls/hr Cefepime HCl 1 gm/ Sodium (Chloride) 100 mls @ 100 mls/hr IVPB DAILY [facility] Last Admin: 08/04/16 09:48 Dose: 100 mls/hr Piperacillin Sod/Tazobactam (Sod 2.25 gm/ Sodium Chloride) 100 mls @ 100 mls/ hr IVPB Q8 [facility] Last Admin: 08/05/16 00:25 Dose: 100 mls/hr Insulin Detemir (Levemir) 25 units SC HS [facility] Last Admin: 08/04/16 21:42 Dose: 25 units Insulin Human Regular (Humulin R) 0 units SC ACHS [facility] PRN Reason: Protocol Last Admin: 08/04/16 21:42 Dose: Not Given Midodrine (Proamatine) 10 mg PO Q8H [facility] Last Admin: 08/05/16 05:39 Dose: 10 mg Pantoprazole Sodium (Protonix Susp) 40 mg PO DAILY [facility] Last Admin: 08/04/16 16:40 Dose: 40 mg Sevelamer Carbonate (Renvela) 0.8 gm PO TID [facility] Last Admin: 08/04/16 16:40 Dose: 0.8 gm Sitagliptin Phosphate (Januvia) 25 mg PO DAILY [facility] Last Admin: 08/04/16 16:39 Dose: 25 mg Tamsulosin HCl (Flomax) 0.4 mg PO DAILY [facility] Last Admin: 08/04/16 16:36 Dose: 0.4 mg Vitamin B Complex/Vit C/Folic Acid (Nephro-Carlitos) 1 tab PO DAILY [facility] Last Admin: 08/04/16 16:39 Dose: 1 tab - Labs Labs: 08/05/16 04:20 08/05/16 04:20 PT 11.8 SECONDS (9.6-11.2) H 08/05/16 04:20 INR 1.13 (0.92-1.08) H 08/05/16 04:20 APTT 28.5 SECONDS (23.3-32.5) 08/05/16 04:20 - Constitutional Appears: Other (intubated ) - Respiratory Exam Additional comments: intubated on ventilation - Neurological Exam Neurological Exam: absent: Alert Assessment and Plan - Assessment and Plan (Free Text) Assessment: 80M w/ acute on chronic CKD, s/p code blue w/ acute respiratory failure and anoxic brain injury, intubated since 07/14 -Pt was made DNR by family yesterday but they are still considering tracheostomy -Tracheostomy is currently scheduled for Saturday 08/05 -Discuss with family when available Further recs discuss with Dr. Crispin Torres, PGY1
[2016-08-05] MEDS: Artificial Tears Opht Soln OU PRN (09:50)
[2016-08-05] MEDS: Cefepime 1 GM in Sodium Chloride 0.9% 100 ML IVPB SCH (09:51)
[2016-08-05] MEDS: Micafungin 100 MG in Sodium Chloride 0.9% 100 ML IVPB SCH (09:51)
[2016-08-05] MEDS: Pantoprazole 40 mg Susp UD PO SCH (09:52)
[2016-08-05] MEDS: Sevelamer Carb 0.8 gm/Packet PO SCH ×3 (09:52→17:12)
[2016-08-05] MEDS: Multivitamin Vitamin B Complex (Nephro-Vite) Tab PO SCH (09:52)
--- NOTE | 2016-08-05 10:39 | PN ---
DATE: 08/05/2016 The patient is seen and examined. Interim events noted. Consults noted and appreciated. Nephrology and flat spring assembler interventions noted and appreciated. The patient remains in intensive care unit. T he patient is on a ventilator and unresponsive, and is not able to provide any informative history or review of systems. PHYSICAL EXAMINATION: GENERAL: The patient is orally intubated on mechanical ventilation via endotracheal tube, tolerating current vent setting without any acute respiratory distress. VITAL SIGNS: Stable. HEART: S1, S2 normal, regular. LUNGS: Good bilateral air exchange, occasional ____. EXTREMITIES: No edema. No calf swelling. No tenderness. No acute ischemia. CENTRAL NERVOUS SYSTEM: Essentially unchanged, and the patient is essentially comatose, noncommunica tive and unresponsive. DIAGNOSTIC DATA: Available diagnostic data reviewed. Telemetry monitoring does not reveal any significant arrhythmia. The patient is tentatively scheduled for tracheostomy today. PLAN: As ordered. Case and plan discussed with the patient's family. Case and plan were also discu ssed with flat spring assembler. Tang Solorio MD cc: [id number] TT: 08/05/2016 10:39:03 Confirmation # [id number] Dictation # [id number]
--- NOTE | 2016-08-05 11:10 | CP.CCUPN ---
<Cee Garcia - Last Filed: 08/05/16 15:43> CCU Subjective - Physician Review Subjective (Free Text): 08/05/16 11:07 Patient seen and examined at bedside and discussed with ICU attending during rounds. Patient remains unresponsive to verbal or physical stimuli. He is on mechanical ventilation and consistently satting at 98% with settings of 14/500/5 /40%. He remains off of vasopressors and has been afebrile and hemodynamically stable. Patient has plans for tracheostomy to be performed today. Pending evaluation for PEG placement by GI. Patient is DNR status. CCU Objective - Vital Signs / Intake & Output Vital Signs (Last 4 hours): Vital Signs Temp Pulse Resp BP Pulse Ox 08/05/16 10:00 79 17 107/62 97 08/05/16 09:50 80 128/89 08/05/16 07:40 99.0 F 77 17 110/67 97 Intake and Output (Last 8hrs): Intake & Output 08/04/16 08/05/16 08/05/16 22:59 06:59 14:59 Intake Total 784 300 Balance 784 300 Intake: IV 24 Intake, Piggyback 300 Tube Feeding 760 - Physical Exam Head: Positive for: Atraumatic, Normocephalic Pupils: Positive for: Non-Reactive. Negative for: Pinpoint Extroacular Muscles: Negative for: EOMI Conjunctiva: Negative for: Injected, Icteric Neck: Positive for: Other (Right IJ HD catheter site clean, dry, with no signs of erythema.) Respiratory/Chest: Positive for: Other (Intubated, on mechanical ventilation. B/ L air entry present but decreased at lung bases. Lungs otherwise clear to auscultation with no rales or rhonchii. ). Negative for: Wheezes Cardiovascular: Positive for: Regular Rate and Rhythm, Normal S1, S2. Negative for: Murmurs Abdomen: Positive for: Normal Bowel Sounds. Negative for: Tenderness, Distention Genitourinary Male: Positive for: Other (Right groin TLC site clean, dry, with no surrounding erythema. ) Upper Extremity: Positive for: Edema (B/L upper extremity edema), Other ( Generalized anasarca which has remained stable compared to prior assessments) Lower Extremity: Positive for: Edema (2+ b/l LE up to knees), Other (Lower extremity YADIRA dressings.) Neurological: Positive for: Other (Unresponsive to verbal or painful stimuli. Pupils fixed. Corneal reflex present with occasional spontaneous blink. Corinal reflex present. No gag reflex. Not moving extremities. Occassionally moving head from sided to side.) Psychiatric: Negative for: Alert - Medications Active Medications: Active Medications Generic Name Dose Route Start Last Admin Trade Name Freq PRN Reason Stop Dose Admin Acetaminophen 650 mg 07/26/16 03:55 07/28/16 23:38 Tylenol 650mg/20.3ml Solution Ud PO 650 mg Q6 PRN Administration fever Acetaminophen 650 mg 07/29/16 10:45 Tylenol 325mg Tab PO Q6H PRN Pain, moderate (4-7) Allopurinol 100 mg 07/19/16 09:00 08/05/16 09:53 Zyloprim PO Not Given DAILY [facility] Artificial Tears 2 drop 07/26/16 16:18 08/05/16 09:50 Artificial Tears OU 2 drop Q6 PRN Administration Dry eyes Ascorbic Acid 1,000 mg 07/23/16 09:00 08/05/16 09:53 Vitamin C 500 Mg Tab PO Not Given DAILY [facility] GU[facility]ALU[facility] Bismuth Subsalicylate 524 mg 07/18/16 20:13 Pepto-Bismol PO Q6H PRN Diarrhea Carvedilol 12.5 mg 07/19/16 09:00 08/05/16 09:50 Coreg PO Not Given BID [facility] GU[facility]ALU[facility] Dextrose 0 ml 07/18/16 20:13 Dextrose 50% Inj IVP STAT PRN Hypoglycemia Protocol Protocol Ezetimibe 10 mg 07/18/16 22:00 08/04/16 20:59 Zetia PO 10 mg HS [facility] Administration Epoetin Jameel 4,000 unit 07/28/16 09:00 08/04/16 09:49 Procrit SC 4,000 unit MWF [facility] Administration Ergocalciferol 1 cap 07/18/16 20:13 Drisdol 50,000 Intl Units Cap PO QWK [facility] GU[facility]ALU[facility] Glucagon 0 mg 07/18/16 20:13 Glucagen Diagnostic Kit IM STAT PRN Hypoglycemia Protocol Protocol Vancomycin HCl 1 gm/ Sodium 250 mls @ 166.667 mls/hr 07/28/16 09:00 08/04/16 09:49 Chloride IVPB 166.667 mls/hr MWF [facility] Administration Micafungin Sodium 100 mg/ 100 mls @ 100 mls/hr 07/27/16 13:45 08/05/16 09:51 Sodium Chloride IVPB 100 mls/hr DAILY [facility] Administration Cefepime HCl 1 gm/ Sodium 100 mls @ 100 mls/hr 07/31/16 11:00 08/05/16 09:51 Chloride IVPB 100 mls/hr DAILY [facility] Administration Piperacillin Sod/Tazobactam 100 mls @ 100 mls/hr 07/31/16 11:00 08/05/16 09: 53 Sod 2.25 gm/ Sodium Chloride IVPB 100 mls/hr Q8 [facility] Administration Insulin Detemir 25 units 07/18/16 22:00 08/04/16 21:42 Levemir SC 25 units HS [facility] GUADALU[facility] Administration Insulin Human Regular 0 units 07/19/16 06:45 08/04/16 21:42 Humulin R SC Not Given ACHS [facility] Protocol Midodrine 10 mg 07/29/16 20:30 08/05/16 05:39 Proamatine PO 10 mg Q8H [facility] GU[facility] Administration Pantoprazole Sodium 40 mg 07/29/16 11:00 08/05/16 09:52 Protonix Susp PO Not Given DAILY [facility] Sevelamer Carbonate 0.8 gm 07/19/16 09:00 08/05/16 09:52 Renvela PO Not Given TID [facility] Sitagliptin Phosphate 25 mg 07/19/16 09:00 08/05/16 09:51 Januvia PO Not Given DAILY [facility] Tamsulosin HCl 0.4 mg 07/19/16 09:00 08/05/16 09:50 Flomax PO Not Given DAILY [facility] Vitamin B Complex/Vit C/Folic Acid 1 tab 07/23/16 09:00 08/05/16 09:52 Nephro-Carlitos PO Not Given DAILY MARIA GUADALUPE - Patient Studies Lab Studies: Lab Studies 08/05/16 08/05/16 08/05/16 Range/Units 07:04 05:05 04:20 WBC (4.8-10.8) K/uL RBC (4.40-5.90) Mil/uL Hgb (12.0-18.0) g/dL Hct (35.0-51.0) % MCV (80.0-94.0) fl MCH (27.0-31.0) pg MCHC (33.0-37.0) g/dL RDW (11.5-14.5) % Plt Count (130-400) K/uL PT 11.8 H (9.6-11.2) SECONDS INR 1.13 H (0.92-1.08) APTT 28.5 (23.3-32.5) SECONDS pCO2 44 (35-45) mm/Hg pO2 131 H (80-100) mm/Hg HCO3 28.4 H (21-28) mmol/L ABG pH 7.43 (7.35-7.45) ABG Total CO2 30.6 H (22-28) mmol/L ABG O2 Saturation 99.7 H (95-98) % ABG O2 Content 12.7 L (15-23) ML/dL ABG Base Excess 4.4 H (-2.0-3.0) mmol/L ABG Hemoglobin 9.2 L (11.7-17.4) g/dL ABG Carboxyhemoglobin 1.7 H (0.5-1.5) % POC ABG HHb (Measured) 0.3 (0.0-5.0) % ABG Methemoglobin 1.7 (0.0-3.0) % ABG O2 Capacity 12.7 L (16-24) mL/dL Mason Test Yes A-a O2 Difference 99.0 mm/Hg Hgb O2 Saturation 96.3 (95.0-98.0) % Vent Mode A/c Mechanical Rate 14 FiO2 40.0 % Tidal Volume 500 PEEP 5 Sodium (132-148) mmol/l Potassium (3.6-5.0) MMOL/L Chloride (98-107) mmol/L Carbon Dioxide (22-30) mmol/L Anion Gap (10-20) BUN (9-20) mg/dl Creatinine (0.8-1.5) mg/dL Est GFR ( Amer) Est GFR (Non-Af Amer) POC Glucose (mg/dL) 118 H (65-110) mg/dL Random Glucose (75-110) mg/dL Calcium (8.4-10.2) mg/dL Total Bilirubin (0.2-1.3) mg/dl AST (17-59) U/L ALT (21-72) U/L Alkaline Phosphatase (38-126) U/L Total Protein (6.3-8.2) G/DL Albumin (3.5-5.0) g/dL Globulin (2.2-3.9) gm/dL Albumin/Globulin Ratio (1.0-2.1) 08/05/16 08/05/16 08/04/16 Range/Units 04:20 04:20 21:33 WBC 8.6 (4.8-10.8) K/uL RBC 2.87 L (4.40-5.90) Mil/uL Hgb 8.0 L (12.0-18.0) g/dL Hct 25.2 L (35.0-51.0) % MCV 87.6 (80.0-94.0) fl MCH 27.7 (27.0-31.0) pg MCHC 31.6 L (33.0-37.0) g/dL RDW 19.2 H (11.5-14.5) % Plt Count 207 (130-400) K/uL PT (9.6-11.2) SECONDS INR (0.92-1.08) APTT (23.3-32.5) SECONDS pCO2 (35-45) mm/Hg pO2 (80-100) mm/Hg HCO3 (21-28) mmol/L ABG pH (7.35-7.45) ABG Total CO2 (22-28) mmol/L ABG O2 Saturation (95-98) % ABG O2 Content (15-23) ML/dL ABG Base Excess (-2.0-3.0) mmol/L ABG Hemoglobin (11.7-17.4) g/dL ABG Carboxyhemoglobin (0.5-1.5) % POC ABG HHb (Measured) (0.0-5.0) % ABG Methemoglobin (0.0-3.0) % ABG O2 Capacity (16-24) mL/dL Mason Test A-a O2 Difference mm/Hg Hgb O2 Saturation (95.0-98.0) % Vent Mode Mechanical Rate FiO2 % Tidal Volume PEEP Sodium 140 (132-148) mmol/l Potassium 4.3 (3.6-5.0) MMOL/L Chloride 103 (98-107) mmol/L Carbon Dioxide 26 (22-30) mmol/L Anion Gap 15 (10-20) BUN 60 H (9-20) mg/dl Creatinine 4.3 H (0.8-1.5) mg/dL Est GFR ( Amer) 16 Est GFR (Non-Af Amer) 13 POC Glucose (mg/dL) 180 H (65-110) mg/dL Random Glucose 144 H (75-110) mg/dL Calcium 7.6 L (8.4-10.2) mg/dL Total Bilirubin 1.0 (0.2-1.3) mg/dl AST 49 (17-59) U/L ALT 43 (21-72) U/L Alkaline Phosphatase 257 H (38-126) U/L Total Protein 6.5 (6.3-8.2) G/DL Albumin 2.4 L (3.5-5.0) g/dL Globulin 4.0 H (2.2-3.9) gm/dL Albumin/Globulin Ratio 0.6 L (1.0-2.1) 08/04/16 08/04/16 08/04/16 Range/Units 20:05 15:52 11:54 WBC (4.8-10.8) K/uL RBC (4.40-5.90) Mil/uL Hgb (12.0-18.0) g/dL Hct (35.0-51.0) % MCV (80.0-94.0) fl MCH (27.0-31.0) pg MCHC (33.0-37.0) g/dL RDW (11.5-14.5) % Plt Count (130-400) K/uL PT (9.6-11.2) SECONDS INR (0.92-1.08) APTT (23.3-32.5) SECONDS pCO2 (35-45) mm/Hg pO2 (80-100) mm/Hg HCO3 (21-28) mmol/L ABG pH (7.35-7.45) ABG Total CO2 (22-28) mmol/L ABG O2 Saturation (95-98) % ABG O2 Content (15-23) ML/dL ABG Base Excess (-2.0-3.0) mmol/L ABG Hemoglobin (11.7-17.4) g/dL ABG Carboxyhemoglobin (0.5-1.5) % POC ABG HHb (Measured) (0.0-5.0) % ABG Methemoglobin (0.0-3.0) % ABG O2 Capacity (16-24) mL/dL Mason Test A-a O2 Difference mm/Hg Hgb O2 Saturation (95.0-98.0) % Vent Mode Mechanical Rate FiO2 % Tidal Volume PEEP Sodium (132-148) mmol/l Potassium (3.6-5.0) MMOL/L Chloride (98-107) mmol/L Carbon Dioxide (22-30) mmol/L Anion Gap (10-20) BUN (9-20) mg/dl Creatinine (0.8-1.5) mg/dL Est GFR ( Amer) Est GFR (Non-Af Amer) POC Glucose (mg/dL) 179 H 161 H 111 H (65-110) mg/dL Random Glucose (75-110) mg/dL Calcium (8.4-10.2) mg/dL Total Bilirubin (0.2-1.3) mg/dl AST (17-59) U/L ALT (21-72) U/L Alkaline Phosphatase (38-126) U/L Total Protein (6.3-8.2) G/DL Albumin (3.5-5.0) g/dL Globulin (2.2-3.9) gm/dL Albumin/Globulin Ratio (1.0-2.1) Laboratory Results - last 24 hr 08/04/16 08/04/16 08/04/16 11:54 15:52 20:05 WBC RBC Hgb Hct MCV MCH MCHC RDW Plt Count PT INR APTT pCO2 pO2 HCO3 ABG pH ABG Total CO2 ABG O2 Saturation ABG O2 Content ABG Base Excess ABG Hemoglobin ABG Carboxyhemoglobin POC ABG HHb (Measured) ABG Methemoglobin ABG O2 Capacity Mason Test A-a O2 Difference Hgb O2 Saturation Vent Mode Mechanical Rate FiO2 Tidal Volume PEEP Sodium Potassium Chloride Carbon Dioxide Anion Gap BUN Creatinine Est GFR ( Amer) Est GFR (Non-Af Amer) POC Glucose (mg/dL) 111 H 161 H 179 H Random Glucose Calcium Total Bilirubin AST ALT Alkaline Phosphatase Total Protein Albumin Globulin Albumin/Globulin Ratio 08/04/16 08/05/16 08/05/16 21:33 04:20 04:20 WBC 8.6 RBC 2.87 L Hgb 8.0 L Hct 25.2 L MCV 87.6 MCH 27.7 MCHC 31.6 L RDW 19.2 H Plt Count 207 PT INR APTT pCO2 pO2 HCO3 ABG pH ABG Total CO2 ABG O2 Saturation ABG O2 Content ABG Base Excess ABG Hemoglobin ABG Carboxyhemoglobin POC ABG HHb (Measured) ABG Methemoglobin ABG O2 Capacity Mason Test A-a O2 Difference Hgb O2 Saturation Vent Mode Mechanical Rate FiO2 Tidal Volume PEEP Sodium 140 Potassium 4.3 Chloride 103 Carbon Dioxide 26 Anion Gap 15 BUN 60 H Creatinine 4.3 H Est GFR ( Amer) 16 Est GFR (Non-Af Amer) 13 POC Glucose (mg/dL) 180 H Random Glucose 144 H Calcium 7.6 L Total Bilirubin 1.0 AST 49 ALT 43 Alkaline Phosphatase 257 H Total Protein 6.5 Albumin 2.4 L Globulin 4.0 H Albumin/Globulin Ratio 0.6 L 08/05/16 08/05/16 08/05/16 04:20 05:05 07:04 WBC RBC Hgb Hct MCV MCH MCHC RDW Plt Count PT 11.8 H INR 1.13 H APTT 28.5 pCO2 44 pO2 131 H HCO3 28.4 H ABG pH 7.43 ABG Total CO2 30.6 H ABG O2 Saturation 99.7 H ABG O2 Content 12.7 L ABG Base Excess 4.4 H ABG Hemoglobin 9.2 L ABG Carboxyhemoglobin 1.7 H POC ABG HHb (Measured) 0.3 ABG Methemoglobin 1.7 ABG O2 Capacity 12.7 L Mason Test Yes A-a O2 Difference 99.0 Hgb O2 Saturation 96.3 Vent Mode A/c Mechanical Rate 14 FiO2 40.0 Tidal Volume 500 PEEP 5 Sodium Potassium Chloride Carbon Dioxide Anion Gap BUN Creatinine Est GFR ( Amer) Est GFR (Non-Af Amer) POC Glucose (mg/dL) 118 H Random Glucose Calcium Total Bilirubin AST ALT Alkaline Phosphatase Total Protein Albumin Globulin Albumin/Globulin Ratio Fingerstick Blood Sugar Results: 180 Review of Systems - Review of Systems Systems not reviewed;Unavailable: Intubated Critical Care Progress Note - Nutrition Nutrition: Nutrition Category Date Time Status NPO Diet [DIET] Diets 08/04/16 Dinner Active Assessment/Plan - Assessment and Plan (Free Text) Assessment: 80 y/o with PMH including HTN, DM2, Hyperlipidemia, Morbid obesity, CKD Stage IV presented to [facility] for 2 weeks of progressive abdominal pain, lower extremity erythema and generalized malaise. He was subsequently admitted for lower extremity cellulitis, possible cholecystitis and acute on chronic CKD associated with multiple electrolyte abnormalities. During admission, patient had signs of lethargy and was sent for CT Head and Chest, during which an CONTRACT RECRUITER was called. CONTRACT RECRUITER converted to code blue for cardiac/respiratory arrest. Patient was coded for 10 minutes and was intubated, with return of spontaneous circulation. Patient was then transferred to ICU on 07/14/16. Since then, patient has been intubated, unresponsive and septic. 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 He again had a code blue called on 07/28/16 and was resuscitated with epinephrine and atropine. He has been weaned off of pressors and is currently ICU day 23. Plan: Anoxic Brain Injury -Secondary to cardiac arrest for over 10 minutes with hypoxemia on 07/14/16 and again on 07/28/16 -Absent pupillary response. Corneal reflex present. Dolls eyes negative. Gag reflex absent however carinal reflex can be elicited. -Patient is not brain due to preserved brain stem functions, however remains in vegetative state -Continue neuro checks -For scheduled tracheostomy today. Pending GI evaluation for PEG placement. Acute Respiratory Failure -Etiology possibly secondary to aspiration pneumonia? -Patient intubated on 07/14/16 due to cardiac/respiratory arrest -Currently on mechanical ventilation, day 23 -Current Vent settings: 14/500/5/40%, Patient satting at 98% -Has scheduled tracheostomy by general surgery for today Septis, with Strep Anginosus Bacteremia (formerly septic shock) -Etiology secondary to GI vs Aspiration pneumonia -Afebrile overnight. WBC today 8.6 -Last fever: 100.6F on 07/28 @23:38 -Has been off vasopresors -Blood culture from 07/09 detected strep anginosus sensitive to Vancomycin -Repeat blood cultures obtained from IJ during dialysis and femoral line on both revealed no growth, final -On empiric abx: Vancomycin 1gm IV MWF (Since 07/13) and Zosyn 2.25 gm IV Q8h ( Started 07/11, day 26) Cefepime 1gm IV daily(Started 07/25, day 12) -Yeast species detected on tracheal aspirate. Micafungin started on 07/27, current day 10 Acute on Chronic Kidney Failure -Has been following with nephrology, Dr Morse as outpatient -BUN/Cr: 60/4.3 -Started on HD during admission, which patient has been receiving on MWF schedule. Nephro recently added additional dialysis for Saturdays -Last dialyzed yesterday, removing 2L UF Anemia of Chronic Disease -S/P 2units pRBC on 07/30 -H/H: 8.0/25.2 Paroxysmal Atrial Fibrillation -Has had several episodes of afib during dialysis which resolved with amiodarone. -Rate controlled. Sinus rhythm today. Will monitor. Feeds -Nepro via OGT DVT Prophylaxis -Heparin 5,000units SC Q8H Code Status -DNR <LatefAmilcar M - Last Filed: 08/05/16 15:52> CCU Objective - Vital Signs / Intake & Output Vital Signs (Last 4 hours): Vital Signs Temp Pulse Resp BP Pulse Ox 08/05/16 12:00 99.2 F 79 16 94/50 L 100 Intake and Output (Last 8hrs): Intake & Output 08/05/16 08/05/16 08/05/16 06:59 14:59 22:59 Intake Total 300 Balance 300 Intake: Intake, Piggyback 300 - Medications Active Medications: Active Medications Generic Name Dose Route Start Last Admin Trade Name Freq PRN Reason Stop Dose Admin Acetaminophen 650 mg 07/26/16 03:55 07/28/16 23:38 Tylenol 650mg/20.3ml Solution Ud PO 650 mg Q6 PRN Administration fever Acetaminophen 650 mg 07/29/16 10:45 Tylenol 325mg Tab PO Q6H PRN Pain, moderate (4-7) Allopurinol 100 mg 07/19/16 09:00 08/05/16 09:53 Zyloprim PO Not Given DAILY [facility]ALU[facility] Artificial Tears 2 drop 07/26/16 16:18 08/05/16 09:50 Artificial Tears OU 2 drop Q6 PRN Administration Dry eyes Ascorbic Acid 1,000 mg 07/23/16 09:00 08/05/16 09:53 Vitamin C 500 Mg Tab PO Not Given DAILY [facility] Bismuth Subsalicylate 524 mg 07/18/16 20:13 Pepto-Bismol PO Q6H PRN Diarrhea Carvedilol 12.5 mg 07/19/16 09:00 08/05/16 09:50 Coreg PO Not Given BID [facility]ALU[facility] Dextrose 0 ml 07/18/16 20:13 Dextrose 50% Inj IVP STAT PRN Hypoglycemia Protocol Protocol Ezetimibe 10 mg 07/18/16 22:00 08/04/16 20:59 Zetia PO 10 mg HS [facility] Administration Epoetin Jameel 4,000 unit 07/28/16 09:00 08/04/16 09:49 Procrit SC 4,000 unit MWF [facility] Administration Ergocalciferol 1 cap 07/18/16 20:13 Drisdol 50,000 Intl Units Cap PO QWK [facility] Glucagon 0 mg 07/18/16 20:13 Glucagen Diagnostic Kit IM STAT PRN Hypoglycemia Protocol Protocol Vancomycin HCl 1 gm/ Sodium 250 mls @ 166.667 mls/hr 07/28/16 09:00 08/04/16 09:49 Chloride IVPB 166.667 mls/hr MWF [facility] Administration Micafungin Sodium 100 mg/ 100 mls @ 100 mls/hr 07/27/16 13:45 08/05/16 09:51 Sodium Chloride IVPB 100 mls/hr DAILY [facility] Administration Cefepime HCl 1 gm/ Sodium 100 mls @ 100 mls/hr 07/31/16 11:00 08/05/16 09:51 Chloride IVPB 100 mls/hr DAILY [facility] Administration Piperacillin Sod/Tazobactam 100 mls @ 100 mls/hr 07/31/16 11:00 08/05/16 09: 53 Sod 2.25 gm/ Sodium Chloride IVPB 100 mls/hr Q8 [facility]ALU[facility] Administration Insulin Detemir 25 units 07/18/16 22:00 08/04/16 21:42 Levemir SC 25 units HS [facility]ALU[facility] Administration Insulin Human Regular 0 units 07/19/16 06:45 08/05/16 13:23 Humulin R SC Not Given ACHS [facility] Protocol Midodrine 10 mg 07/29/16 20:30 08/05/16 13:23 Proamatine PO Not Given Q8H [facility] Pantoprazole Sodium 40 mg 07/29/16 11:00 08/05/16 09:52 Protonix Susp PO Not Given DAILY [facility] Sevelamer Carbonate 0.8 gm 07/19/16 09:00 08/05/16 13:23 Renvela PO Not Given TID [facility] Sitagliptin Phosphate 25 mg 07/19/16 09:00 08/05/16 09:51 Januvia PO Not Given DAILY [facility] Tamsulosin HCl 0.4 mg 07/19/16 09:00 08/05/16 09:50 Flomax PO Not Given DAILY [facility] Vitamin B Complex/Vit C/Folic Acid 1 tab 07/23/16 09:00 08/05/16 09:52 Nephro-Carlitos PO Not Given DAILY [facility]ALU[facility] - Patient Studies Lab Studies: Microbiology Studies 08/05/16 07:25 Gram Stain - Final Other: Please Indicate Lab Studies 08/05/16 08/05/16 08/05/16 Range/Units 11:13 07:04 05:05 WBC (4.8-10.8) K/uL RBC (4.40-5.90) Mil/uL Hgb (12.0-18.0) g/dL Hct (35.0-51.0) % MCV (80.0-94.0) fl MCH (27.0-31.0) pg MCHC (33.0-37.0) g/dL RDW (11.5-14.5) % Plt Count (130-400) K/uL PT (9.6-11.2) SECONDS INR (0.92-1.08) APTT (23.3-32.5) SECONDS pCO2 44 (35-45) mm/Hg pO2 131 H (80-100) mm/Hg HCO3 28.4 H (21-28) mmol/L ABG pH 7.43 (7.35-7.45) ABG Total CO2 30.6 H (22-28) mmol/L ABG O2 Saturation 99.7 H (95-98) % ABG O2 Content 12.7 L (15-23) ML/dL ABG Base Excess 4.4 H (-2.0-3.0) mmol/L ABG Hemoglobin 9.2 L (11.7-17.4) g/dL ABG Carboxyhemoglobin 1.7 H (0.5-1.5) % POC ABG HHb (Measured) 0.3 (0.0-5.0) % ABG Methemoglobin 1.7 (0.0-3.0) % ABG O2 Capacity 12.7 L (16-24) mL/dL Mason Test Yes A-a O2 Difference 99.0 mm/Hg Hgb O2 Saturation 96.3 (95.0-98.0) % Vent Mode A/c Mechanical Rate 14 FiO2 40.0 % Tidal Volume 500 PEEP 5 Sodium (132-148) mmol/l Potassium (3.6-5.0) MMOL/L Chloride (98-107) mmol/L Carbon Dioxide (22-30) mmol/L Anion Gap (10-20) BUN (9-20) mg/dl Creatinine (0.8-1.5) mg/dL Est GFR ( Amer) Est GFR (Non-Af Amer) POC Glucose (mg/dL) 95 118 H (65-110) mg/dL Random Glucose (75-110) mg/dL Calcium (8.4-10.2) mg/dL Total Bilirubin (0.2-1.3) mg/dl AST (17-59) U/L ALT (21-72) U/L Alkaline Phosphatase (38-126) U/L Total Protein (6.3-8.2) G/DL Albumin (3.5-5.0) g/dL Globulin (2.2-3.9) gm/dL Albumin/Globulin Ratio (1.0-2.1) 08/05/16 08/05/16 08/05/16 Range/Units 04:20 04:20 04:20 WBC 8.6 (4.8-10.8) K/uL RBC 2.87 L (4.40-5.90) Mil/uL Hgb 8.0 L (12.0-18.0) g/dL Hct 25.2 L (35.0-51.0) % MCV 87.6 (80.0-94.0) fl MCH 27.7 (27.0-31.0) pg MCHC 31.6 L (33.0-37.0) g/dL RDW 19.2 H (11.5-14.5) % Plt Count 207 (130-400) K/uL PT 11.8 H (9.6-11.2) SECONDS INR 1.13 H (0.92-1.08) APTT 28.5 (23.3-32.5) SECONDS pCO2 (35-45) mm/Hg pO2 (80-100) mm/Hg HCO3 (21-28) mmol/L ABG pH (7.35-7.45) ABG Total CO2 (22-28) mmol/L ABG O2 Saturation (95-98) % ABG O2 Content (15-23) ML/dL ABG Base Excess (-2.0-3.0) mmol/L ABG Hemoglobin (11.7-17.4) g/dL ABG Carboxyhemoglobin (0.5-1.5) % POC ABG HHb (Measured) (0.0-5.0) % ABG Methemoglobin (0.0-3.0) % ABG O2 Capacity (16-24) mL/dL Mason Test A-a O2 Difference mm/Hg Hgb O2 Saturation (95.0-98.0) % Vent Mode Mechanical Rate FiO2 % Tidal Volume PEEP Sodium 140 (132-148) mmol/l Potassium 4.3 (3.6-5.0) MMOL/L Chloride 103 (98-107) mmol/L Carbon Dioxide 26 (22-30) mmol/L Anion Gap 15 (10-20) BUN 60 H (9-20) mg/dl Creatinine 4.3 H (0.8-1.5) mg/dL Est GFR ( Amer) 16 Est GFR (Non-Af Amer) 13 POC Glucose (mg/dL) (65-110) mg/dL Random Glucose 144 H (75-110) mg/dL Calcium 7.6 L (8.4-10.2) mg/dL Total Bilirubin 1.0 (0.2-1.3) mg/dl AST 49 (17-59) U/L ALT 43 (21-72) U/L Alkaline Phosphatase 257 H (38-126) U/L Total Protein 6.5 (6.3-8.2) G/DL Albumin 2.4 L (3.5-5.0) g/dL Globulin 4.0 H (2.2-3.9) gm/dL Albumin/Globulin Ratio 0.6 L (1.0-2.1) 08/04/16 08/04/16 08/04/16 Range/Units 21:33 20:05 15:52 WBC (4.8-10.8) K/uL RBC (4.40-5.90) Mil/uL Hgb (12.0-18.0) g/dL Hct (35.0-51.0) % MCV (80.0-94.0) fl MCH (27.0-31.0) pg MCHC (33.0-37.0) g/dL RDW (11.5-14.5) % Plt Count (130-400) K/uL PT (9.6-11.2) SECONDS INR (0.92-1.08) APTT (23.3-32.5) SECONDS pCO2 (35-45) mm/Hg pO2 (80-100) mm/Hg HCO3 (21-28) mmol/L ABG pH (7.35-7.45) ABG Total CO2 (22-28) mmol/L ABG O2 Saturation (95-98) % ABG O2 Content (15-23) ML/dL ABG Base Excess (-2.0-3.0) mmol/L ABG Hemoglobin (11.7-17.4) g/dL ABG Carboxyhemoglobin (0.5-1.5) % POC ABG HHb (Measured) (0.0-5.0) % ABG Methemoglobin (0.0-3.0) % ABG O2 Capacity (16-24) mL/dL Mason Test A-a O2 Difference mm/Hg Hgb O2 Saturation (95.0-98.0) % Vent Mode Mechanical Rate FiO2 % Tidal Volume PEEP Sodium (132-148) mmol/l Potassium (3.6-5.0) MMOL/L Chloride (98-107) mmol/L Carbon Dioxide (22-30) mmol/L Anion Gap (10-20) BUN (9-20) mg/dl Creatinine (0.8-1.5) mg/dL Est GFR ( Amer) Est GFR (Non-Af Amer) POC Glucose (mg/dL) 180 H 179 H 161 H (65-110) mg/dL Random Glucose (75-110) mg/dL Calcium (8.4-10.2) mg/dL Total Bilirubin (0.2-1.3) mg/dl AST (17-59) U/L ALT (21-72) U/L Alkaline Phosphatase (38-126) U/L Total Protein (6.3-8.2) G/DL Albumin (3.5-5.0) g/dL Globulin (2.2-3.9) gm/dL Albumin/Globulin Ratio (1.0-2.1) 07/25/16 07/24/16 Range/Units 06:30 10:58 WBC (4.8-10.8) K/uL RBC (4.40-5.90) Mil/uL Hgb (12.0-18.0) g/dL Hct (35.0-51.0) % MCV (80.0-94.0) fl MCH (27.0-31.0) pg MCHC (33.0-37.0) g/dL RDW (11.5-14.5) % Plt Count (130-400) K/uL PT (9.6-11.2) SECONDS INR (0.92-1.08) APTT (23.3-32.5) SECONDS pCO2 (35-45) mm/Hg pO2 (80-100) mm/Hg HCO3 (21-28) mmol/L ABG pH (7.35-7.45) ABG Total CO2 (22-28) mmol/L ABG O2 Saturation (95-98) % ABG O2 Content (15-23) ML/dL ABG Base Excess (-2.0-3.0) mmol/L ABG Hemoglobin (11.7-17.4) g/dL ABG Carboxyhemoglobin (0.5-1.5) % POC ABG HHb (Measured) (0.0-5.0) % ABG Methemoglobin (0.0-3.0) % ABG O2 Capacity (16-24) mL/dL Mason Test A-a O2 Difference mm/Hg Hgb O2 Saturation (95.0-98.0) % Vent Mode Mechanical Rate FiO2 % Tidal Volume PEEP Sodium (132-148) mmol/l Potassium (3.6-5.0) MMOL/L Chloride (98-107) mmol/L Carbon Dioxide (22-30) mmol/L Anion Gap (10-20) BUN (9-20) mg/dl Creatinine (0.8-1.5) mg/dL Est GFR ( Amer) Est GFR (Non-Af Amer) POC Glucose (mg/dL) 268 H 259 H (65-110) mg/dL Random Glucose (75-110) mg/dL Calcium (8.4-10.2) mg/dL Total Bilirubin (0.2-1.3) mg/dl AST (17-59) U/L ALT (21-72) U/L Alkaline Phosphatase (38-126) U/L Total Protein (6.3-8.2) G/DL Albumin (3.5-5.0) g/dL Globulin (2.2-3.9) gm/dL Albumin/Globulin Ratio (1.0-2.1) Laboratory Results - last 24 hr 07/24/16 07/25/16 08/04/16 10:58 06:30 15:52 WBC RBC Hgb Hct MCV MCH MCHC RDW Plt Count PT INR APTT pCO2 pO2 HCO3 ABG pH ABG Total CO2 ABG O2 Saturation ABG O2 Content ABG Base Excess ABG Hemoglobin ABG Carboxyhemoglobin POC ABG HHb (Measured) ABG Methemoglobin ABG O2 Capacity Mason Test A-a O2 Difference Hgb O2 Saturation Vent Mode Mechanical Rate FiO2 Tidal Volume PEEP Sodium Potassium Chloride Carbon Dioxide Anion Gap BUN Creatinine Est GFR ( Amer) Est GFR (Non-Af Amer) POC Glucose (mg/dL) 259 H 268 H 161 H Random Glucose Calcium Total Bilirubin AST ALT Alkaline Phosphatase Total Protein Albumin Globulin Albumin/Globulin Ratio 08/04/16 08/04/16 08/05/16 20:05 21:33 04:20 WBC 8.6 RBC 2.87 L Hgb 8.0 L Hct 25.2 L MCV 87.6 MCH 27.7 MCHC 31.6 L RDW 19.2 H Plt Count 207 PT INR APTT pCO2 pO2 HCO3 ABG pH ABG Total CO2 ABG O2 Saturation ABG O2 Content ABG Base Excess ABG Hemoglobin ABG Carboxyhemoglobin POC ABG HHb (Measured) ABG Methemoglobin ABG O2 Capacity Mason Test A-a O2 Difference Hgb O2 Saturation Vent Mode Mechanical Rate FiO2 Tidal Volume PEEP Sodium Potassium Chloride Carbon Dioxide Anion Gap BUN Creatinine Est GFR ( Amer) Est GFR (Non-Af Amer) POC Glucose (mg/dL) 179 H 180 H Random Glucose Calcium Total Bilirubin AST ALT Alkaline Phosphatase Total Protein Albumin Globulin Albumin/Globulin Ratio 08/05/16 08/05/16 08/05/16 04:20 04:20 05:05 WBC RBC Hgb Hct MCV MCH MCHC RDW Plt Count PT 11.8 H INR 1.13 H APTT 28.5 pCO2 44 pO2 131 H HCO3 28.4 H ABG pH 7.43 ABG Total CO2 30.6 H ABG O2 Saturation 99.7 H ABG O2 Content 12.7 L ABG Base Excess 4.4 H ABG Hemoglobin 9.2 L ABG Carboxyhemoglobin 1.7 H POC ABG HHb (Measured) 0.3 ABG Methemoglobin 1.7 ABG O2 Capacity 12.7 L Mason Test Yes A-a O2 Difference 99.0 Hgb O2 Saturation 96.3 Vent Mode A/c Mechanical Rate 14 FiO2 40.0 Tidal Volume 500 PEEP 5 Sodium 140 Potassium 4.3 Chloride 103 Carbon Dioxide 26 Anion Gap 15 BUN 60 H Creatinine 4.3 H Est GFR ( Amer) 16 Est GFR (Non-Af Amer) 13 POC Glucose (mg/dL) Random Glucose 144 H Calcium 7.6 L Total Bilirubin 1.0 AST 49 ALT 43 Alkaline Phosphatase 257 H Total Protein 6.5 Albumin 2.4 L Globulin 4.0 H Albumin/Globulin Ratio 0.6 L 08/05/16 08/05/16 07:04 11:13 WBC RBC Hgb Hct MCV MCH MCHC RDW Plt Count PT INR APTT pCO2 pO2 HCO3 ABG pH ABG Total CO2 ABG O2 Saturation ABG O2 Content ABG Base Excess ABG Hemoglobin ABG Carboxyhemoglobin POC ABG HHb (Measured) ABG Methemoglobin ABG O2 Capacity Mason Test A-a O2 Difference Hgb O2 Saturation Vent Mode Mechanical Rate FiO2 Tidal Volume PEEP Sodium Potassium Chloride Carbon Dioxide Anion Gap BUN Creatinine Est GFR ( Amer) Est GFR (Non-Af Amer) POC Glucose (mg/dL) 118 H 95 Random Glucose Calcium Total Bilirubin AST ALT Alkaline Phosphatase Total Protein Albumin Globulin Albumin/Globulin Ratio Critical Care Progress Note - Nutrition Nutrition: Nutrition Category Date Time Status NPO Diet [DIET] Diets 08/04/16 Dinner Active Assessment/Plan (1) Cardiac arrest Current Visit: Yes Status: Acute Comment: No neurological improvements, unresponsive to tactile or painful stimuli. Remains intubated, not breathing over the vent Unresponsive to painful stimuli EEG reviewed Neurology evaluation appreciated Frequent neuro-check Scheduled for Tracheostomy tomorrow Saturday 08/05 (2) Anoxic brain injury Current Visit: Yes Status: Acute Priority: High Comment: Patient is DNR Scheduled for Tracheostomy tomorrow Saturday 08/05 Poor prognosis, Family aware (3) Aspiration pneumonia Current Visit: Yes Status: Acute Comment: Afebrile overnight IV Vancomycin, Zosyn, Cefepime and Micafungin Off pressors Aggressive Pulmonary toilets ID evaluation appreciated (4) Acute kidney failure Current Visit: Yes Status: Acute Comment: Nephrology evaluation appreciated Patient receive HD today HD TIW (MWF) (5) Acute cholecystitis Current Visit: Yes Status: Acute Attending/Attestation - Attestation I have personally seen and examined this patient.: Yes I have fully participated in the care of the patient.: Yes I have reviewed all pertinent clinical information: Yes Notes (Text): 08/05/16 15:52 Today: Friday, August 05, 2016 The Patient was seen and examined at the bedside, Medical records reviewed, all clinical/lab/hemodynamic/radiographic data were reviewed and management issues were discussed and formulated, Events reviewed Pain issues, skin care, head of the bed elevation, GI/DVT prophylaxis, glycemic control were addressed. I discussed the plan of care with the resident and agree with the above history and physical and assessment/plans as transcribed in Dr. Garcia note
[2016-08-05] MEDS: Insulin Regular 100 units/ml SC SCH ×3 (13:23→22:00)
--- NOTE | 2016-08-05 16:30 | RAD ---
HISTORY: Intubated. COMPARISON: 08/03/2016 FINDINGS: The endotracheal tube terminates in the mid trachea. The distal tip of the nasogastric tube is not well visualized. The right central venous catheter terminates in the SVC. LUNGS: There is interval improved aeration in both lungs with persistent mild pulmonary venous congestion. PLEURA: Improving bilateral pleural effusions, larger on the right. No pneumothorax. CARDIOVASCULAR: Normal. OSSEOUS STRUCTURES: No significant abnormalities. VISUALIZED UPPER ABDOMEN: Normal. OTHER FINDINGS: None. IMPRESSION: Stable position of endotracheal tube. The distal tip of the nasogastric tube is not well visualized. Improved aeration in both lungs and improving pleural effusions, larger on the right.
--- NOTE | 2016-08-05 21:25 | CP.PCM.PN ---
Subjective - Date & Time of Evaluation Date of Evaluation: 08/05/16 Time of Evaluation: 13:00 - Subjective Subjective: SEEN ON RENAL F/U .. IN ICU D/W QA TECH ALL PREVIOUS EMR REVIEWED PT REMAINS INTUBATED .. FOR TEACH TODAY ? ON HD M W F AND SAT DNR STATUS Objective - Vital Signs/Intake and Output Vital Signs (last 24 hours): Temp Pulse Resp BP Pulse Ox 98.1 F 100 H 14 111/62 99 08/05/16 16:00 08/05/16 18:00 08/05/16 18:00 08/05/16 18:00 08/05/16 18:00 Intake and Output: 08/05/16 08/06/16 18:59 06:59 Intake Total 479 Balance 479 - Medications Medications: Current Medications Acetaminophen (Tylenol 650mg/20.3ml Solution Ud) 650 mg PO Q6 PRN PRN Reason: fever Last Admin: 07/28/16 23:38 Dose: 650 mg Acetaminophen (Tylenol 325mg Tab) 650 mg PO Q6H PRN PRN Reason: Pain, moderate (4-7) Allopurinol (Zyloprim) 100 mg PO DAILY [facility] Last Admin: 08/05/16 09:53 Dose: Not Given Artificial Tears (Artificial Tears) 2 drop OU Q6 PRN PRN Reason: Dry eyes Last Admin: 08/05/16 09:50 Dose: 2 drop Ascorbic Acid (Vitamin C 500 Mg Tab) 1,000 mg PO DAILY [facility] Last Admin: 08/05/16 09:53 Dose: Not Given Bismuth Subsalicylate (Pepto-Bismol) 524 mg PO Q6H PRN PRN Reason: Diarrhea Carvedilol (Coreg) 12.5 mg PO BID [facility] Last Admin: 08/05/16 17:11 Dose: 12.5 mg Dextrose (Dextrose 50% Inj) 0 ml IVP STAT PRN; Protocol PRN Reason: Hypoglycemia Protocol Ezetimibe (Zetia) 10 mg PO HS [facility] Last Admin: 08/04/16 20:59 Dose: 10 mg Epoetin Jameel (Procrit) 4,000 unit SC MWF [facility] Last Admin: 08/04/16 09:49 Dose: 4,000 unit Ergocalciferol (Drisdol 50,000 Intl Units Cap) 1 cap PO QWK [facility] Glucagon (Glucagen Diagnostic Kit) 0 mg IM STAT PRN; Protocol PRN Reason: Hypoglycemia Protocol Vancomycin HCl 1 gm/ Sodium (Chloride) 250 mls @ 166.667 mls/hr IVPB MWF [facility] Last Admin: 08/04/16 09:49 Dose: 166.667 mls/hr Micafungin Sodium 100 mg/ (Sodium Chloride) 100 mls @ 100 mls/hr IVPB DAILY [facility] Last Admin: 08/05/16 09:51 Dose: 100 mls/hr Cefepime HCl 1 gm/ Sodium (Chloride) 100 mls @ 100 mls/hr IVPB DAILY [facility] Last Admin: 08/05/16 09:51 Dose: 100 mls/hr Piperacillin Sod/Tazobactam (Sod 2.25 gm/ Sodium Chloride) 100 mls @ 100 mls/ hr IVPB Q8 [facility] Last Admin: 08/05/16 17:13 Dose: 100 mls/hr Insulin Detemir (Levemir) 25 units SC HS [facility] Last Admin: 08/04/16 21:42 Dose: 25 units Insulin Human Regular (Humulin R) 0 units SC ACHS [facility] PRN Reason: Protocol Last Admin: 08/05/16 17:12 Dose: Not Given Midodrine (Proamatine) 10 mg PO Q8H [facility] Last Admin: 08/05/16 13:23 Dose: Not Given Pantoprazole Sodium (Protonix Susp) 40 mg PO DAILY [facility] Last Admin: 08/05/16 09:52 Dose: Not Given Sevelamer Carbonate (Renvela) 0.8 gm PO TID [facility] Last Admin: 08/05/16 17:12 Dose: 0.8 gm Sitagliptin Phosphate (Januvia) 25 mg PO DAILY [facility] Last Admin: 08/05/16 09:51 Dose: Not Given Tamsulosin HCl (Flomax) 0.4 mg PO DAILY [facility] Last Admin: 08/05/16 09:50 Dose: Not Given Vitamin B Complex/Vit C/Folic Acid (Nephro-Carlitos) 1 tab PO DAILY [facility] Last Admin: 08/05/16 09:52 Dose: Not Given - Labs Labs: 08/05/16 04:20 08/05/16 04:20 PT 11.8 SECONDS (9.6-11.2) H 08/05/16 04:20 INR 1.13 (0.92-1.08) H 08/05/16 04:20 APTT 28.5 SECONDS (23.3-32.5) 08/05/16 04:20 Assessment and Plan - Assessment and Plan (Free Text) Assessment: A ON CKD .. DIALYSIS DEPENDANT ON M W F AND SAT ANEMIA OF CKD ON EPO .. R/O OTHER CAUSES VDRF .. ON VENT SEPSIS .. ON IVAB MULTIPLE CO MORBIDITIES P : C/O CURRENT CARE C/O PRESENT MANAGEMENT
[2016-08-05] MEDS: Insulin Detemir 100 Units/ml Inj SC SCH (22:17)
[2016-08-06 05:42] LABS: ABG ALLEN TEST YES; ABG MECHANICAL RATE 14; ARTERIAL BLOOD GAS HCO3 26.3 mmol/L (21-28); ARTERIAL BLOOD GAS MODE PRVC AC; ARTERIAL BLOOD GAS O2 CAPACITY 11.9 mL/dL (16-24); ARTERIAL BLOOD GAS O2 CONTENT 11.8 ML/dL (15-23); ARTERIAL BLOOD GAS PH 7.41 (7.35-7.45); ARTERIAL BLOOD GAS PO2 94 mm/Hg (80-100); ARTERIAL BLOOD HGB O2 SAT 96.1 % (95.0-98.0); ATERIAL BLOOD GAS PEEP 5; CARBOXYHEMOGLOBIN 1.8 % (0.5-1.5); HHB 0.5 % (0.0-5.0); METHEMOGLOBIN 1.5 % (0.0-3.0)
[2016-08-06] MEDS: Insulin Regular 100 units/ml SC SCH ×4 (06:47→21:47)
[2016-08-06 06:57] LABS: HEMATOCRIT 26.3 % (35.0-51.0); MEAN CELL VOLUME 87.9 fl (80.0-94.0); MEAN CORPUSCULAR HGB CONC 31.8 g/dL (33.0-37.0); RED CELL DISTRIBUTION WIDTH 20.5 % (11.5-14.5); WHITE BLOOD COUNT 9.7 K/uL (4.8-10.8)
[2016-08-06 07:17] LABS: ALB/GLOB RATIO 0.6 (1.0-2.1); BILIRUBIN,TOTAL 1.2 mg/dl (0.2-1.3); CALCIUM 7.6 mg/dL (8.4-10.2); POTASSIUM 4.8 MMOL/L (3.6-5.0)
--- NOTE | 2016-08-06 07:51 | CP.PCM.PN ---
Subjective - Date & Time of Evaluation Date of Evaluation: 08/06/16 Time of Evaluation: 07:49 - Subjective Subjective: SURGERY NOTE FOR DR. ROA 80M seen and examined at bedside. Patient intubated and unresponsive to tactile stimuli. Objective - Vital Signs/Intake and Output Vital Signs (last 24 hours): Temp Pulse Resp BP Pulse Ox 98.6 F 73 15 112/66 100 08/06/16 04:00 08/06/16 06:00 08/06/16 06:00 08/06/16 06:00 08/06/16 06:00 Intake and Output: 08/06/16 08/06/16 06:59 18:59 Intake Total 910 Balance 910 - Medications Medications: Current Medications Acetaminophen (Tylenol 650mg/20.3ml Solution Ud) 650 mg PO Q6 PRN PRN Reason: fever Last Admin: 07/28/16 23:38 Dose: 650 mg Acetaminophen (Tylenol 325mg Tab) 650 mg PO Q6H PRN PRN Reason: Pain, moderate (4-7) Allopurinol (Zyloprim) 100 mg PO DAILY [facility] Last Admin: 08/05/16 09:53 Dose: Not Given Artificial Tears (Artificial Tears) 2 drop OU Q6 PRN PRN Reason: Dry eyes Last Admin: 08/05/16 09:50 Dose: 2 drop Ascorbic Acid (Vitamin C 500 Mg Tab) 1,000 mg PO DAILY [facility] Last Admin: 08/05/16 09:53 Dose: Not Given Bismuth Subsalicylate (Pepto-Bismol) 524 mg PO Q6H PRN PRN Reason: Diarrhea Carvedilol (Coreg) 12.5 mg PO BID [facility] Last Admin: 08/05/16 17:11 Dose: 12.5 mg Dextrose (Dextrose 50% Inj) 0 ml IVP STAT PRN; Protocol PRN Reason: Hypoglycemia Protocol Ezetimibe (Zetia) 10 mg PO HS [facility] Last Admin: 08/05/16 22:18 Dose: 10 mg Epoetin Jameel (Procrit) 4,000 unit SC MWF [facility] Last Admin: 08/04/16 09:49 Dose: 4,000 unit Ergocalciferol (Drisdol 50,000 Intl Units Cap) 1 cap PO QWK [facility] Glucagon (Glucagen Diagnostic Kit) 0 mg IM STAT PRN; Protocol PRN Reason: Hypoglycemia Protocol Heparin Sodium (Porcine) (Heparin) 2,000 units IVP ONCE ONE PRN Reason: Protocol Stop: 08/06/16 07:37 Vancomycin HCl 1 gm/ Sodium (Chloride) 250 mls @ 166.667 mls/hr IVPB MWF [facility] Last Admin: 08/04/16 09:49 Dose: 166.667 mls/hr Micafungin Sodium 100 mg/ (Sodium Chloride) 100 mls @ 100 mls/hr IVPB DAILY [facility] Last Admin: 08/05/16 09:51 Dose: 100 mls/hr Cefepime HCl 1 gm/ Sodium (Chloride) 100 mls @ 100 mls/hr IVPB DAILY [facility] Last Admin: 08/05/16 09:51 Dose: 100 mls/hr Piperacillin Sod/Tazobactam (Sod 2.25 gm/ Sodium Chloride) 100 mls @ 100 mls/ hr IVPB Q8 [facility] Last Admin: 08/06/16 00:31 Dose: 100 mls/hr Insulin Detemir (Levemir) 25 units SC HS [facility] Last Admin: 08/05/16 22:17 Dose: 25 units Insulin Human Regular (Humulin R) 0 units SC ACHS [facility] PRN Reason: Protocol Last Admin: 08/06/16 06:47 Dose: 2 units Midodrine (Proamatine) 10 mg PO Q8H [facility] Last Admin: 08/06/16 05:47 Dose: 10 mg Pantoprazole Sodium (Protonix Susp) 40 mg PO DAILY [facility] Last Admin: 08/05/16 09:52 Dose: Not Given Sevelamer Carbonate (Renvela) 0.8 gm PO TID [facility] Last Admin: 08/05/16 17:12 Dose: 0.8 gm Sitagliptin Phosphate (Januvia) 25 mg PO DAILY [facility] Last Admin: 08/05/16 09:51 Dose: Not Given Tamsulosin HCl (Flomax) 0.4 mg PO DAILY [facility] Last Admin: 08/05/16 09:50 Dose: Not Given Vitamin B Complex/Vit C/Folic Acid (Nephro-Carlitos) 1 tab PO DAILY [facility] Last Admin: 08/05/16 09:52 Dose: Not Given - Labs Labs: 08/06/16 06:00 08/06/16 06:00 PT 11.8 SECONDS (9.6-11.2) H 08/05/16 04:20 INR 1.13 (0.92-1.08) H 08/05/16 04:20 APTT 28.5 SECONDS (23.3-32.5) 08/05/16 04:20 - Respiratory Exam Additional comments: intubated on ventilation Assessment and Plan - Assessment and Plan (Free Text) Assessment: 80M w/ acute on chronic CKD, s/p code blue w/ acute respiratory failure and anoxic brain injury, intubated since 07/14 -Pt was made DNR by family but they are still considering tracheostomy -Tracheostomy is postponed -Discuss with family when available Further recs discuss with Dr. Roa
[2016-08-06] MEDS: Sevelamer Carb 0.8 gm/Packet PO SCH ×3 (09:20→17:44)
--- NOTE | 2016-08-06 09:24 | CP.PCM.PN ---
Subjective - Date & Time of Evaluation Date of Evaluation: 08/06/16 Time of Evaluation: 09:22 - Subjective Subjective: 80 year old man seen in the ICU with attending, Dr. Arora. Patient is unresponsive, he is intubated and on a ventilator, and currently receiving dialysis. Dressings are clean, dry, and intact. No acute overnight events reported by nursing staff. Objective - Vital Signs/Intake and Output Vital Signs (last 24 hours): Temp Pulse Resp BP Pulse Ox 98.8 F 85 22 107/70 99 08/06/16 08:00 08/06/16 09:19 08/06/16 08:00 08/06/16 09:19 08/06/16 08:00 Intake and Output: 08/06/16 08/06/16 06:59 18:59 Intake Total 910 Balance 910 - Medications Medications: Current Medications Acetaminophen (Tylenol 650mg/20.3ml Solution Ud) 650 mg PO Q6 PRN PRN Reason: fever Last Admin: 07/28/16 23:38 Dose: 650 mg Acetaminophen (Tylenol 325mg Tab) 650 mg PO Q6H PRN PRN Reason: Pain, moderate (4-7) Allopurinol (Zyloprim) 100 mg PO DAILY [facility] Last Admin: 08/05/16 09:53 Dose: Not Given Artificial Tears (Artificial Tears) 2 drop OU Q6 PRN PRN Reason: Dry eyes Last Admin: 08/05/16 09:50 Dose: 2 drop Ascorbic Acid (Vitamin C 500 Mg Tab) 1,000 mg PO DAILY [facility] Last Admin: 08/05/16 09:53 Dose: Not Given Bismuth Subsalicylate (Pepto-Bismol) 524 mg PO Q6H PRN PRN Reason: Diarrhea Carvedilol (Coreg) 12.5 mg PO BID [facility] Last Admin: 08/06/16 09:19 Dose: Not Given Dextrose (Dextrose 50% Inj) 0 ml IVP STAT PRN; Protocol PRN Reason: Hypoglycemia Protocol Ezetimibe (Zetia) 10 mg PO HS [facility] Last Admin: 08/05/16 22:18 Dose: 10 mg Epoetin Jameel (Procrit) 4,000 unit SC MWF [facility] Last Admin: 08/04/16 09:49 Dose: 4,000 unit Ergocalciferol (Drisdol 50,000 Intl Units Cap) 1 cap PO QWK [facility] Glucagon (Glucagen Diagnostic Kit) 0 mg IM STAT PRN; Protocol PRN Reason: Hypoglycemia Protocol Vancomycin HCl 1 gm/ Sodium (Chloride) 250 mls @ 166.667 mls/hr IVPB MWF [facility] Last Admin: 08/04/16 09:49 Dose: 166.667 mls/hr Micafungin Sodium 100 mg/ (Sodium Chloride) 100 mls @ 100 mls/hr IVPB DAILY [facility] Last Admin: 08/05/16 09:51 Dose: 100 mls/hr Cefepime HCl 1 gm/ Sodium (Chloride) 100 mls @ 100 mls/hr IVPB DAILY [facility] Last Admin: 08/05/16 09:51 Dose: 100 mls/hr Piperacillin Sod/Tazobactam (Sod 2.25 gm/ Sodium Chloride) 100 mls @ 100 mls/ hr IVPB Q8 [facility] Last Admin: 08/06/16 00:31 Dose: 100 mls/hr Insulin Detemir (Levemir) 25 units SC HS [facility] Last Admin: 08/05/16 22:17 Dose: 25 units Insulin Human Regular (Humulin R) 0 units SC ACHS [facility] PRN Reason: Protocol Last Admin: 08/06/16 06:47 Dose: 2 units Midodrine (Proamatine) 10 mg PO Q8H [facility] Last Admin: 08/06/16 05:47 Dose: 10 mg Pantoprazole Sodium (Protonix Susp) 40 mg PO DAILY [facility] Last Admin: 08/05/16 09:52 Dose: Not Given Sevelamer Carbonate (Renvela) 0.8 gm PO TID [facility] Last Admin: 08/06/16 09:20 Dose: Not Given Sitagliptin Phosphate (Januvia) 25 mg PO DAILY [facility] Last Admin: 08/05/16 09:51 Dose: Not Given Tamsulosin HCl (Flomax) 0.4 mg PO DAILY [facility] Last Admin: 08/05/16 09:50 Dose: Not Given Vitamin B Complex/Vit C/Folic Acid (Nephro-Carlitos) 1 tab PO DAILY [facility] Last Admin: 08/05/16 09:52 Dose: Not Given - Labs Labs: 08/06/16 06:00 08/06/16 06:00 PT 11.8 SECONDS (9.6-11.2) H 08/05/16 04:20 INR 1.13 (0.92-1.08) H 08/05/16 04:20 APTT 28.5 SECONDS (23.3-32.5) 08/05/16 04:20 - Constitutional Appears: Chronically Ill - Extremities Exam Additional comments: Lower extremity focused exam: VASC: DP and PT pulses palpable 1/4 b/l. +1 pitting edema noted to lower extremities b/l. DERM: Dyshydrotic epidermal patches noted to b/l LE. Left leg exhibits open ulceration measuring approximately 0.5 cm by 0.5 cm by 0.1 cm to the proximal anterior damian. Right leg superficial ulcerations noted to be healed, skin in anterior damian is intact. NEURO: Unresponsive to painful stimuli. ORTHO: No gross deformities noted. Unable to obtain as patient is unresponsive. Assessment and Plan - Assessment and Plan (Free Text) Assessment: 80 year old male with bilateral leg venous stasis dermatitis, secondary to venous insufficiency Plan: Patient examined and evaluated with attending, Dr. Arora Patient with current anoxic encephalopathy, renal failure, and cardiopulmonary compromise contribute to a poor overall prognosis. Chart, labs, and vitals reviewed. Afebrile, WBC=9.7 L LE dressed with vaseline gauze, ABD, DSD, YADIRA Offloading boots applied to LE b/l Continue IV abx per ID. Podiatry will continue to follow this patient while in house
[2016-08-06] MEDS: Epoetin Alfa 4000 UNIT/ML Inj SC SCH (09:26)
--- NOTE | 2016-08-06 09:45 | CP.PCM.PN ---
Subjective - Date & Time of Evaluation Date of Evaluation: 08/06/16 Time of Evaluation: 09:44 - Subjective Subjective: d/w attending. overnight events none. no eye movement, no extremity movement to command, no painful stimuli response. no ROS d/t lack of verbal response. HD today. DNR code status. trach and PEG tube placement to be d/w family. Objective - Vital Signs/Intake and Output Vital Signs (last 24 hours): Temp Pulse Resp BP Pulse Ox 98.8 F 85 22 107/70 99 08/06/16 08:00 08/06/16 09:19 08/06/16 08:00 08/06/16 09:19 08/06/16 08:00 Intake and Output: 08/06/16 08/06/16 06:59 18:59 Intake Total 910 100 Balance 910 100 - Medications Medications: Current Medications Acetaminophen (Tylenol 650mg/20.3ml Solution Ud) 650 mg PO Q6 PRN PRN Reason: fever Last Admin: 07/28/16 23:38 Dose: 650 mg Acetaminophen (Tylenol 325mg Tab) 650 mg PO Q6H PRN PRN Reason: Pain, moderate (4-7) Allopurinol (Zyloprim) 100 mg PO DAILY [facility] Last Admin: 08/05/16 09:53 Dose: Not Given Artificial Tears (Artificial Tears) 2 drop OU Q6 PRN PRN Reason: Dry eyes Last Admin: 08/05/16 09:50 Dose: 2 drop Ascorbic Acid (Vitamin C 500 Mg Tab) 1,000 mg PO DAILY [facility] Last Admin: 08/05/16 09:53 Dose: Not Given Bismuth Subsalicylate (Pepto-Bismol) 524 mg PO Q6H PRN PRN Reason: Diarrhea Carvedilol (Coreg) 12.5 mg PO BID [facility] Last Admin: 08/06/16 09:19 Dose: Not Given Dextrose (Dextrose 50% Inj) 0 ml IVP STAT PRN; Protocol PRN Reason: Hypoglycemia Protocol Ezetimibe (Zetia) 10 mg PO HS [facility] Last Admin: 08/05/16 22:18 Dose: 10 mg Epoetin Jameel (Procrit) 4,000 unit SC MWF [facility] Last Admin: 08/06/16 09:26 Dose: 4,000 unit Ergocalciferol (Drisdol 50,000 Intl Units Cap) 1 cap PO QWK [facility] Glucagon (Glucagen Diagnostic Kit) 0 mg IM STAT PRN; Protocol PRN Reason: Hypoglycemia Protocol Vancomycin HCl 1 gm/ Sodium (Chloride) 250 mls @ 166.667 mls/hr IVPB MWF [facility] Last Admin: 08/04/16 09:49 Dose: 166.667 mls/hr Micafungin Sodium 100 mg/ (Sodium Chloride) 100 mls @ 100 mls/hr IVPB DAILY [facility] Last Admin: 08/05/16 09:51 Dose: 100 mls/hr Cefepime HCl 1 gm/ Sodium (Chloride) 100 mls @ 100 mls/hr IVPB DAILY [facility] Last Admin: 08/05/16 09:51 Dose: 100 mls/hr Piperacillin Sod/Tazobactam (Sod 2.25 gm/ Sodium Chloride) 100 mls @ 100 mls/ hr IVPB Q8 [facility] Last Admin: 08/06/16 09:27 Dose: 100 mls/hr Insulin Detemir (Levemir) 25 units SC HS [facility] Last Admin: 08/05/16 22:17 Dose: 25 units Insulin Human Regular (Humulin R) 0 units SC ACHS [facility] GUADALUPE PRN Reason: Protocol Last Admin: 08/06/16 06:47 Dose: 2 units Midodrine (Proamatine) 10 mg PO Q8H [facility] Last Admin: 08/06/16 05:47 Dose: 10 mg Pantoprazole Sodium (Protonix Susp) 40 mg PO DAILY [facility] Last Admin: 08/05/16 09:52 Dose: Not Given Sevelamer Carbonate (Renvela) 0.8 gm PO TID [facility] Last Admin: 08/06/16 09:20 Dose: Not Given Sitagliptin Phosphate (Januvia) 25 mg PO DAILY [facility] Last Admin: 08/05/16 09:51 Dose: Not Given Tamsulosin HCl (Flomax) 0.4 mg PO DAILY [facility] Last Admin: 08/05/16 09:50 Dose: Not Given Vitamin B Complex/Vit C/Folic Acid (Nephro-Carlitos) 1 tab PO DAILY [facility] Last Admin: 08/05/16 09:52 Dose: Not Given - Labs Labs: 08/06/16 06:00 08/06/16 06:00 PT 11.8 SECONDS (9.6-11.2) H 08/05/16 04:20 INR 1.13 (0.92-1.08) H 08/05/16 04:20 APTT 28.5 SECONDS (23.3-32.5) 08/05/16 04:20 - Constitutional Appears: Non-toxic - Head Exam Head Exam: NORMAL INSPECTION - Eye Exam Pupil Exam: Fixed - ENT Exam Additional comments: Intubated - Neck Exam Neck Exam: Normal Inspection - Respiratory Exam Respiratory Exam: NORMAL BREATHING PATTERN - Cardiovascular Exam Cardiovascular Exam: REGULAR RHYTHM - GI/Abdominal Exam GI & Abdominal Exam: Soft - Extremities Exam Extremities Exam: Normal Capillary Refill, Pedal Edema - Neurological Exam Neurological Exam: absent: Alert, Awake Additional comments: -GCS 2, E1V(T)M1 - Skin Skin Exam: Dry Assessment and Plan - Assessment and Plan (Free Text) Assessment: 80yo M with PMHx HTN, diabetes, prostate BPH and CKD admitted for acute on chronic kidney injury, cellulitis. Currently in ICU for bacteremia with anoxic brain injury on ventilator and unresponsive. Full code. HD today. Poor prognosis. d/w family trach and PEG placement cardiac arrest -Cardio on board, appreciate input -neuro on board, appreciate input -wood scaler on board, appreciate input -DNR code respiratory failure -Cardio on board, appreciate input -neuro on board, appreciate input -wood scaler on board, appreciate input -surgery on board, appreciate input. possible trach -intubated AC 14/40% bacteremia -2/2 cellulitis, PNA, or other source. h/o cath placement -blood cx: S anginosus/constellatus -ID on board, appreciate input -Cefepime, Micafungin, Vanc, Zosyn -pressors aspiration PNA -CXR 07/30/16: b/l infiltrates -ID on board, appreciate input -intubated MV 20/07/50% -Cefepime, Micafungin, Vanc, Zosyn pAfib -Cardio on board, appreciate input -coreg acute on CKD -HD -Nephro on board, appreciate input cellulitis -Cefepime, Micafungin, Vanc, Zosyn -ID on board, appreciate input -podiatry on board, appreciate input anoxic brain injury -GCS 2, E1V(T)M1 -2/2 renal failure, sepsis, or cardiorenal syndrome -CT head x2 no acute change -neuro on board, appreciate input -intubated AC 14//40% anemia -EPO -FOBT neg -Nephro on board, appreciate input anasarca -low albumin -monitor -HD -Nephro on board, appreciate input HTN -coreg HLD -statin -zetia DM -held linagliptin, pioglitazone -januvia -levemir -SSI -accuchecks DVT/GI ppx -heparin -protonix Dispo: d/w family trach and PEG placement Code: DNR
--- NOTE | 2016-08-06 11:07 | CP.CCUPN ---
<Delmy Garciamiladis - Last Filed: 08/06/16 11:03> CCU Subjective - Physician Review Subjective (Free Text): 08/06/16 11:29 Patient seen and examined at bedside with ICU attending during morning rounds. Patient remains unresponsive to verbal or physical stimuli. He is on mechanical ventilation and consistently satting at 98% with settings of 14/500/5/40%. He remains off of vasopressors and has been afebrile and hemodynamically stable. The Imam from family's latter day arrived at bedside yesterday evening and family meeting was held. Decision made for no tracheostomy or PEG tube insertion. Family is considering terminal intubation and comfort care. CCU Objective - Vital Signs / Intake & Output Vital Signs (Last 4 hours): Vital Signs Temp Pulse Resp BP Pulse Ox 08/06/16 10:00 88 14 101/63 100 08/06/16 09:19 85 107/70 08/06/16 08:00 98.8 F 81 22 110/48 L 99 Intake and Output (Last 8hrs): Intake & Output 08/05/16 08/06/16 08/06/16 22:59 06:59 14:59 Intake Total 399 690 100 Balance 399 690 100 Intake: IV 24 Intake, Piggyback 100 200 100 Tube Feeding 275 440 Free Water Flush 50 - Physical Exam Head: Positive for: Atraumatic, Normocephalic Pupils: Positive for: Non-Reactive. Negative for: Pinpoint Neck: Positive for: Other (Right IJ HD catheter site clean, dry, with no signs of erythema.) Respiratory/Chest: Positive for: Other (Intubated, on mechanical ventilation. B/ L air entry present but decreased at lung bases. Lungs otherwise clear to auscultation with no wheezes, rales or rhonchii. ) Cardiovascular: Positive for: Regular Rate and Rhythm, Normal S1, S2. Negative for: Murmurs Abdomen: Positive for: Normal Bowel Sounds. Negative for: Tenderness, Distention Genitourinary Male: Positive for: Other (Right groin TLC site clean, dry, with no surrounding erythema. ) Upper Extremity: Positive for: Edema (B/L upper extremity edema), Other ( Generalized anasarca which has remained stable compared to prior assessments) Lower Extremity: Positive for: Edema (2+ b/l LE up to knees), Other (Lower extremity YADIRA dressings.) Neurological: Positive for: Other (Unresponsive to verbal or painful stimuli. Pupils fixed. Corneal reflex present with occasional spontaneous blink. Corinal reflex present. No gag reflex. Not moving extremities. Occassionally moving head from sided to side.) Psychiatric: Negative for: Alert - Medications Active Medications: Active Medications Generic Name Dose Route Start Last Admin Trade Name Freq PRN Reason Stop Dose Admin Acetaminophen 650 mg 07/26/16 03:55 07/28/16 23:38 Tylenol 650mg/20.3ml Solution Ud PO 650 mg Q6 PRN Administration fever Acetaminophen 650 mg 07/29/16 10:45 Tylenol 325mg Tab PO Q6H PRN Pain, moderate (4-7) Allopurinol 100 mg 07/19/16 09:00 08/05/16 09:53 Zyloprim PO Not Given DAILY [facility] Artificial Tears 2 drop 07/26/16 16:18 08/05/16 09:50 Artificial Tears OU 2 drop Q6 PRN Administration Dry eyes Ascorbic Acid 1,000 mg 07/23/16 09:00 08/05/16 09:53 Vitamin C 500 Mg Tab PO Not Given DAILY [facility] GUADALU[facility] Bismuth Subsalicylate 524 mg 07/18/16 20:13 Pepto-Bismol PO Q6H PRN Diarrhea Carvedilol 12.5 mg 07/19/16 09:00 08/06/16 09:19 Coreg PO Not Given BID MARIA GUADALUPE Dextrose 0 ml 07/18/16 20:13 Dextrose 50% Inj IVP STAT PRN Hypoglycemia Protocol Protocol Ezetimibe 10 mg 07/18/16 22:00 08/05/16 22:18 Zetia PO 10 mg HS [facility] GUADALUPE Administration Epoetin Jameel 4,000 unit 07/28/16 09:00 08/06/16 09:26 Procrit SC 4,000 unit MWF [facility] GUADALU[facility] Administration Ergocalciferol 1 cap 07/18/16 20:13 Drisdol 50,000 Intl Units Cap PO QWK [facility]ALU[facility] Glucagon 0 mg 07/18/16 20:13 Glucagen Diagnostic Kit IM STAT PRN Hypoglycemia Protocol Protocol Vancomycin HCl 1 gm/ Sodium 250 mls @ 166.667 mls/hr 07/28/16 09:00 08/04/16 09:49 Chloride IVPB 166.667 mls/hr MWF [facility] GUADALU[facility] Administration Micafungin Sodium 100 mg/ 100 mls @ 100 mls/hr 07/27/16 13:45 08/05/16 09:51 Sodium Chloride IVPB 100 mls/hr DAILY [facility] GUADALU[facility] Administration Cefepime HCl 1 gm/ Sodium 100 mls @ 100 mls/hr 07/31/16 11:00 08/05/16 09:51 Chloride IVPB 100 mls/hr DAILY [facility] GU[facility]ALU[facility] Administration Piperacillin Sod/Tazobactam 100 mls @ 100 mls/hr 07/31/16 11:00 08/06/16 09: 27 Sod 2.25 gm/ Sodium Chloride IVPB 100 mls/hr Q8 [facility] GU[facility]ALU[facility] Administration Insulin Detemir 25 units 07/18/16 22:00 08/05/16 22:17 Levemir SC 25 units HS [facility] GUADALUPE Administration Insulin Human Regular 0 units 07/19/16 06:45 08/06/16 06:47 Humulin R SC 2 units ACHS MARIA GUADALUPE Administration Protocol Midodrine 10 mg 07/29/16 20:30 08/06/16 05:47 Proamatine PO 10 mg Q8H [facility] GUADALUPE Administration Pantoprazole Sodium 40 mg 07/29/16 11:00 08/05/16 09:52 Protonix Susp PO Not Given DAILY [facility] Sevelamer Carbonate 0.8 gm 07/19/16 09:00 08/06/16 09:20 Renvela PO Not Given TID [facility] Sitagliptin Phosphate 25 mg 07/19/16 09:00 08/05/16 09:51 Januvia PO Not Given DAILY [facility] Tamsulosin HCl 0.4 mg 07/19/16 09:00 08/05/16 09:50 Flomax PO Not Given DAILY [facility] Vitamin B Complex/Vit C/Folic Acid 1 tab 07/23/16 09:00 08/05/16 09:52 Nephro-Carlitos PO Not Given DAILY [facility] GUADALU[facility] - Patient Studies Lab Studies: Microbiology Studies 08/05/16 07:25 Gram Stain - Final Other: Please Indicate Wound Culture - Preliminary NO GROWTH AFTER 24 HOURS Lab Studies 08/06/16 08/06/16 08/06/16 Range/Units 06:00 06:00 05:50 WBC 9.7 (4.8-10.8) K/uL RBC 2.99 L (4.40-5.90) Mil/uL Hgb 8.4 L (12.0-18.0) g/dL Hct 26.3 L (35.0-51.0) % MCV 87.9 (80.0-94.0) fl MCH 28.0 (27.0-31.0) pg MCHC 31.8 L (33.0-37.0) g/dL RDW 20.5 H (11.5-14.5) % Plt Count 217 (130-400) K/uL pCO2 (35-45) mm/Hg pO2 (80-100) mm/Hg HCO3 (21-28) mmol/L ABG pH (7.35-7.45) ABG Total CO2 (22-28) mmol/L ABG O2 Saturation (95-98) % ABG O2 Content (15-23) ML/dL ABG Base Excess (-2.0-3.0) mmol/L ABG Hemoglobin (11.7-17.4) g/dL ABG Carboxyhemoglobin (0.5-1.5) % POC ABG HHb (Measured) (0.0-5.0) % ABG Methemoglobin (0.0-3.0) % ABG O2 Capacity (16-24) mL/dL Mason Test A-a O2 Difference mm/Hg Hgb O2 Saturation (95.0-98.0) % Vent Mode Mechanical Rate FiO2 % Tidal Volume PEEP Sodium 142 (132-148) mmol/l Potassium 4.8 (3.6-5.0) MMOL/L Chloride 103 (98-107) mmol/L Carbon Dioxide 25 (22-30) mmol/L Anion Gap 19 (10-20) BUN 71 H (9-20) mg/dl Creatinine 5.1 H (0.8-1.5) mg/dL Est GFR ( Amer) 13 Est GFR (Non-Af Amer) 11 POC Glucose (mg/dL) 158 H (65-110) mg/dL Random Glucose 124 H (75-110) mg/dL Calcium 7.6 L (8.4-10.2) mg/dL Total Bilirubin 1.2 (0.2-1.3) mg/dl AST 56 (17-59) U/L ALT 46 (21-72) U/L Alkaline Phosphatase 244 H (38-126) U/L Total Protein 7.0 (6.3-8.2) G/DL Albumin 2.6 L (3.5-5.0) g/dL Globulin 4.4 H (2.2-3.9) gm/dL Albumin/Globulin Ratio 0.6 L (1.0-2.1) 08/06/16 08/05/16 08/05/16 Range/Units 05:39 22:49 15:55 WBC (4.8-10.8) K/uL RBC (4.40-5.90) Mil/uL Hgb (12.0-18.0) g/dL Hct (35.0-51.0) % MCV (80.0-94.0) fl MCH (27.0-31.0) pg MCHC (33.0-37.0) g/dL RDW (11.5-14.5) % Plt Count (130-400) K/uL pCO2 42 (35-45) mm/Hg pO2 94 (80-100) mm/Hg HCO3 26.3 (21-28) mmol/L ABG pH 7.41 (7.35-7.45) ABG Total CO2 27.9 (22-28) mmol/L ABG O2 Saturation 99.5 H (95-98) % ABG O2 Content 11.8 L (15-23) ML/dL ABG Base Excess 1.8 (-2.0-3.0) mmol/L ABG Hemoglobin 8.6 L (11.7-17.4) g/dL ABG Carboxyhemoglobin 1.8 H (0.5-1.5) % POC ABG HHb (Measured) 0.5 (0.0-5.0) % ABG Methemoglobin 1.5 (0.0-3.0) % ABG O2 Capacity 11.9 L (16-24) mL/dL Mason Test Yes A-a O2 Difference 139.0 mm/Hg Hgb O2 Saturation 96.1 (95.0-98.0) % Vent Mode Prvc ac Mechanical Rate 14 FiO2 40.0 % Tidal Volume 500 PEEP 5 Sodium (132-148) mmol/l Potassium (3.6-5.0) MMOL/L Chloride (98-107) mmol/L Carbon Dioxide (22-30) mmol/L Anion Gap (10-20) BUN (9-20) mg/dl Creatinine (0.8-1.5) mg/dL Est GFR ( Amer) Est GFR (Non-Af Amer) POC Glucose (mg/dL) 140 H 94 (65-110) mg/dL Random Glucose (75-110) mg/dL Calcium (8.4-10.2) mg/dL Total Bilirubin (0.2-1.3) mg/dl AST (17-59) U/L ALT (21-72) U/L Alkaline Phosphatase (38-126) U/L Total Protein (6.3-8.2) G/DL Albumin (3.5-5.0) g/dL Globulin (2.2-3.9) gm/dL Albumin/Globulin Ratio (1.0-2.1) 08/05/16 07/25/16 07/24/16 Range/Units 11:13 06:30 10:58 WBC (4.8-10.8) K/uL RBC (4.40-5.90) Mil/uL Hgb (12.0-18.0) g/dL Hct (35.0-51.0) % MCV (80.0-94.0) fl MCH (27.0-31.0) pg MCHC (33.0-37.0) g/dL RDW (11.5-14.5) % Plt Count (130-400) K/uL pCO2 (35-45) mm/Hg pO2 (80-100) mm/Hg HCO3 (21-28) mmol/L ABG pH (7.35-7.45) ABG Total CO2 (22-28) mmol/L ABG O2 Saturation (95-98) % ABG O2 Content (15-23) ML/dL ABG Base Excess (-2.0-3.0) mmol/L ABG Hemoglobin (11.7-17.4) g/dL ABG Carboxyhemoglobin (0.5-1.5) % POC ABG HHb (Measured) (0.0-5.0) % ABG Methemoglobin (0.0-3.0) % ABG O2 Capacity (16-24) mL/dL Mason Test A-a O2 Difference mm/Hg Hgb O2 Saturation (95.0-98.0) % Vent Mode Mechanical Rate FiO2 % Tidal Volume PEEP Sodium (132-148) mmol/l Potassium (3.6-5.0) MMOL/L Chloride (98-107) mmol/L Carbon Dioxide (22-30) mmol/L Anion Gap (10-20) BUN (9-20) mg/dl Creatinine (0.8-1.5) mg/dL Est GFR ( Amer) Est GFR (Non-Af Amer) POC Glucose (mg/dL) 95 268 H 259 H (65-110) mg/dL Random Glucose (75-110) mg/dL Calcium (8.4-10.2) mg/dL Total Bilirubin (0.2-1.3) mg/dl AST (17-59) U/L ALT (21-72) U/L Alkaline Phosphatase (38-126) U/L Total Protein (6.3-8.2) G/DL Albumin (3.5-5.0) g/dL Globulin (2.2-3.9) gm/dL Albumin/Globulin Ratio (1.0-2.1) Laboratory Results - last 24 hr 07/24/16 07/25/16 08/05/16 10:58 06:30 11:13 WBC RBC Hgb Hct MCV MCH MCHC RDW Plt Count pCO2 pO2 HCO3 ABG pH ABG Total CO2 ABG O2 Saturation ABG O2 Content ABG Base Excess ABG Hemoglobin ABG Carboxyhemoglobin POC ABG HHb (Measured) ABG Methemoglobin ABG O2 Capacity Mason Test A-a O2 Difference Hgb O2 Saturation Vent Mode Mechanical Rate FiO2 Tidal Volume PEEP Sodium Potassium Chloride Carbon Dioxide Anion Gap BUN Creatinine Est GFR ( Amer) Est GFR (Non-Af Amer) POC Glucose (mg/dL) 259 H 268 H 95 Random Glucose Calcium Total Bilirubin AST ALT Alkaline Phosphatase Total Protein Albumin Globulin Albumin/Globulin Ratio 08/05/16 08/05/16 08/06/16 15:55 22:49 05:39 WBC RBC Hgb Hct MCV MCH MCHC RDW Plt Count pCO2 42 pO2 94 HCO3 26.3 ABG pH 7.41 ABG Total CO2 27.9 ABG O2 Saturation 99.5 H ABG O2 Content 11.8 L ABG Base Excess 1.8 ABG Hemoglobin 8.6 L ABG Carboxyhemoglobin 1.8 H POC ABG HHb (Measured) 0.5 ABG Methemoglobin 1.5 ABG O2 Capacity 11.9 L Mason Test Yes A-a O2 Difference 139.0 Hgb O2 Saturation 96.1 Vent Mode Prvc ac Mechanical Rate 14 FiO2 40.0 Tidal Volume 500 PEEP 5 Sodium Potassium Chloride Carbon Dioxide Anion Gap BUN Creatinine Est GFR ( Amer) Est GFR (Non-Af Amer) POC Glucose (mg/dL) 94 140 H Random Glucose Calcium Total Bilirubin AST ALT Alkaline Phosphatase Total Protein Albumin Globulin Albumin/Globulin Ratio 08/06/16 08/06/16 08/06/16 05:50 06:00 06:00 WBC 9.7 RBC 2.99 L Hgb 8.4 L Hct 26.3 L MCV 87.9 MCH 28.0 MCHC 31.8 L RDW 20.5 H Plt Count 217 pCO2 pO2 HCO3 ABG pH ABG Total CO2 ABG O2 Saturation ABG O2 Content ABG Base Excess ABG Hemoglobin ABG Carboxyhemoglobin POC ABG HHb (Measured) ABG Methemoglobin ABG O2 Capacity Mason Test A-a O2 Difference Hgb O2 Saturation Vent Mode Mechanical Rate FiO2 Tidal Volume PEEP Sodium 142 Potassium 4.8 Chloride 103 Carbon Dioxide 25 Anion Gap 19 BUN 71 H Creatinine 5.1 H Est GFR ( Amer) 13 Est GFR (Non-Af Amer) 11 POC Glucose (mg/dL) 158 H Random Glucose 124 H Calcium 7.6 L Total Bilirubin 1.2 AST 56 ALT 46 Alkaline Phosphatase 244 H Total Protein 7.0 Albumin 2.6 L Globulin 4.4 H Albumin/Globulin Ratio 0.6 L Fingerstick Blood Sugar Results: 158 Review of Systems - Review of Systems Systems not reviewed;Unavailable: Intubated Critical Care Progress Note - Nutrition Nutrition: Nutrition Category Date Time Status NPO Diet [DIET] Diets 08/04/16 Dinner Active Assessment/Plan - Assessment and Plan (Free Text) Assessment: 80 y/o with PMH including HTN, DM2, Hyperlipidemia, Morbid obesity, CKD Stage IV presented to [facility] for 2 weeks of progressive abdominal pain, lower extremity erythema and generalized malaise. He was subsequently admitted for lower extremity cellulitis, possible cholecystitis and acute on chronic CKD associated with multiple electrolyte abnormalities. During admission, patient had signs of lethargy and was sent for CT Head and Chest, during which an STAFFING MANAGER was called. STAFFING MANAGER converted to code blue for cardiac/respiratory arrest. Patient was coded for 10 minutes and was intubated, with return of spontaneous circulation. Patient was then transferred to ICU on 07/14/16. Since then, patient has been intubated, unresponsive and septic. 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 He again had a code blue called on 07/28/16 and was resuscitated with epinephrine and atropine. He has been weaned off of pressors and is currently ICU day 24. Plan: Anoxic Brain Injury -Secondary to cardiac arrest for over 10 minutes with hypoxemia on 07/14/16 and again on 07/28/16 -Absent pupillary response. Corneal reflex present. Dolls eyes negative. Gag reflex absent however carinal reflex can be elicited. -Patient is not brain due to preserved brain stem functions, however remains in vegetative state -Continue neuro checks -Spoke with family who do not with for tracheostomy or PEG placement. Acute Respiratory Failure -Etiology possibly secondary to aspiration pneumonia? -Patient intubated on 07/14/16 due to cardiac/respiratory arrest -Currently on mechanical ventilation, day 24 -Current Vent settings: 14/500/5/40%, Patient satting at 98% -Family refuse tracheostomy. Considering terminal extubation. Septis, with Strep Anginosus Bacteremia (formerly septic shock) -Etiology secondary to GI vs Aspiration pneumonia -Afebrile overnight. WBC today 9.7 -Last fever: 100.6F on 07/28 @23:38 -Has been off vasopresors -Blood culture from 07/09 detected strep anginosus sensitive to Vancomycin -Repeat blood cultures obtained from IJ during dialysis and femoral line on both revealed no growth, final -On empiric abx: Vancomycin 1gm IV MWF (Since 07/13) and Zosyn 2.25 gm IV Q8h ( Started 07/11, day 27) Cefepime 1gm IV daily(Started 07/25, day 13) -Yeast species detected on tracheal aspirate. Micafungin started on 07/27, current day 11 Acute on Chronic Kidney Failure -Has been following with nephrology, Dr Morse as outpatient -BUN/Cr: 71/5.1 -Started on HD during admission, which patient has been receiving on MWF schedule. Nephro recently added additional dialysis for Saturdays -Currently receiving dialysis Anemia of Chronic Disease -S/P 2units pRBC on 07/30 -H/H: 8.4/26.3 Paroxysmal Atrial Fibrillation -Has had several episodes of afib during dialysis which resolved with amiodarone. -Rate controlled. Sinus rhythm today. Will monitor. Feeds -Nepro via OGT DVT Prophylaxis -Heparin 5,000units SC Q8H Code Status -DNR <Vito Mckeon - Last Filed: 08/06/16 15:12> CCU Subjective - Physician Review Subjective (Free Text): Attestation: Patient seen and examined at the bedside with Resident Dr. Sung Garcia; and I agree with his documented outline of plans and management as discussed on AM rounds, reflecting my review of all applicable clinical data, and participation in the care of the patient throughout the day in ICU; today, August 06, 2016. Family awaiting arrival of more family member and have re-confirmed wishes for Terminal Extubation, have already discussed stopping of enteral feeds and hemodialysis with daughter today since this has not been brought up earlier discussions.
[2016-08-06] MEDS: Artificial Tears Opht Soln OU PRN (12:17)
[2016-08-06] MEDS: Multivitamin Vitamin B Complex (Nephro-Vite) Tab PO SCH (12:20)
[2016-08-06] MEDS: Micafungin 100 MG in Sodium Chloride 0.9% 100 ML IVPB SCH (12:20)
[2016-08-06] MEDS: Pantoprazole 40 mg Susp UD PO SCH (12:21)
[2016-08-06] MEDS: Cefepime 1 GM in Sodium Chloride 0.9% 100 ML IVPB SCH (17:43)
--- NOTE | 2016-08-06 18:02 | EEG ---
DATE: 08/06/2016 CONDITION OF RECORDING: Sleep ____ EEG. DIAGNOSIS: Anoxic brain injury. MEDICATIONS: Reviewed via nurse's reconciliation sheet. INTERPRETATION: This is a 16-channel international recording. Background activity of this recording is composed of 3-4 cycles per second. There was no evidence of any beta activity of 16-20 cycles pe r second seen in this recording. There was a very limited amount of theta activity 5-7 cycles per se cond seen in this tracing. There was an increased amount of delta activity throughout the whole enti re montage with evidence of burst suppression. The patient was in a deep coma. There is no evidence of any sleep spindles or vertex transient waves. There was evidence of diffuse bilateral slowing. Photic stimulation showed no change in the tracing. No paroxysmal activity noted in the recording. CONCLUSION: Abnormal EEG due to presence of diffuse delta activity throughout the EEG with diffuse s lowing, as well as some intermittent episodes of burst suppression indicating poor prognosis, consist ent with the patient's anoxic brain injury scenario. No evidence of any epileptiform activity. Plea se clinically correlate. Alexandr Walls MD cc: [id number] TT: 08/06/2016 18:01:34 Confirmation # [id number] Dictation # [id number] sn
[2016-08-06] MEDS: Insulin Detemir 100 Units/ml Inj SC SCH (21:45)
--- NOTE | 2016-08-06 23:48 | CP.PCM.PN ---
Subjective - Date & Time of Evaluation Date of Evaluation: 08/06/16 Time of Evaluation: 13:00 - Subjective Subjective: SEEN ON RENAL F/U IN ICU REMAINS INTUBATED ORALLY ALL PREVIOUS EMR READ FOR HD TODAY Objective - Vital Signs/Intake and Output Vital Signs (last 24 hours): Temp Pulse Resp BP Pulse Ox 98.9 F 89 15 110/60 100 08/06/16 20:00 08/06/16 22:00 08/06/16 22:00 08/06/16 22:00 08/06/16 22:00 Intake and Output: 08/06/16 08/07/16 18:59 06:59 Intake Total 1334 220 Output Total 1999 Balance -666 220 - Medications Medications: Current Medications Acetaminophen (Tylenol 650mg/20.3ml Solution Ud) 650 mg PO Q6 PRN PRN Reason: fever Last Admin: 07/28/16 23:38 Dose: 650 mg Acetaminophen (Tylenol 325mg Tab) 650 mg PO Q6H PRN PRN Reason: Pain, moderate (4-7) Allopurinol (Zyloprim) 100 mg PO DAILY [facility] Last Admin: 08/06/16 12:23 Dose: 100 mg Artificial Tears (Artificial Tears) 2 drop OU Q6 PRN PRN Reason: Dry eyes Last Admin: 08/06/16 12:17 Dose: 2 drop Ascorbic Acid (Vitamin C 500 Mg Tab) 1,000 mg PO DAILY [facility] Last Admin: 08/06/16 12:22 Dose: 1,000 mg Bismuth Subsalicylate (Pepto-Bismol) 524 mg PO Q6H PRN PRN Reason: Diarrhea Carvedilol (Coreg) 12.5 mg PO BID [facility] Last Admin: 08/06/16 17:42 Dose: 12.5 mg Dextrose (Dextrose 50% Inj) 0 ml IVP STAT PRN; Protocol PRN Reason: Hypoglycemia Protocol Ezetimibe (Zetia) 10 mg PO HS [facility] Last Admin: 08/06/16 21:49 Dose: 10 mg Epoetin Jameel (Procrit) 4,000 unit SC MWF [facility] Last Admin: 08/06/16 09:26 Dose: 4,000 unit Ergocalciferol (Drisdol 50,000 Intl Units Cap) 1 cap PO QWK [facility] Glucagon (Glucagen Diagnostic Kit) 0 mg IM STAT PRN; Protocol PRN Reason: Hypoglycemia Protocol Vancomycin HCl 1 gm/ Sodium (Chloride) 250 mls @ 166.667 mls/hr IVPB MWF [facility] Last Admin: 08/06/16 12:21 Dose: 166.667 mls/hr Micafungin Sodium 100 mg/ (Sodium Chloride) 100 mls @ 100 mls/hr IVPB DAILY [facility] Last Admin: 08/06/16 12:20 Dose: 100 mls/hr Cefepime HCl 1 gm/ Sodium (Chloride) 100 mls @ 100 mls/hr IVPB DAILY [facility] Last Admin: 08/06/16 17:43 Dose: 100 mls/hr Piperacillin Sod/Tazobactam (Sod 2.25 gm/ Sodium Chloride) 100 mls @ 100 mls/ hr IVPB Q8 [facility] Last Admin: 08/06/16 17:45 Dose: 100 mls/hr Insulin Detemir (Levemir) 25 units SC HS [facility] Last Admin: 08/06/16 21:45 Dose: 25 units Insulin Human Regular (Humulin R) 0 units SC ACHS [facility] PRN Reason: Protocol Last Admin: 08/06/16 21:47 Dose: Not Given Midodrine (Proamatine) 10 mg PO Q8H [facility] Last Admin: 08/06/16 20:30 Dose: 10 mg Pantoprazole Sodium (Protonix Susp) 40 mg PO DAILY [facility] Last Admin: 08/06/16 12:21 Dose: 40 mg Sevelamer Carbonate (Renvela) 0.8 gm PO TID [facility] Last Admin: 08/06/16 17:44 Dose: 0.8 gm Sitagliptin Phosphate (Januvia) 25 mg PO DAILY [facility] Last Admin: 08/06/16 12:19 Dose: 25 mg Tamsulosin HCl (Flomax) 0.4 mg PO DAILY [facility] Last Admin: 08/06/16 12:18 Dose: 0.4 mg Vitamin B Complex/Vit C/Folic Acid (Nephro-Carlitos) 1 tab PO DAILY [facility] Last Admin: 08/06/16 12:20 Dose: 1 tab - Labs Labs: 08/06/16 06:00 08/06/16 06:00 PT 11.8 SECONDS (9.6-11.2) H 08/05/16 04:20 INR 1.13 (0.92-1.08) H 08/05/16 04:20 APTT 28.5 SECONDS (23.3-32.5) 08/05/16 04:20 Assessment and Plan - Assessment and Plan (Free Text) Assessment: A ON CKD .. ON HD M W F AND SAT ANEMIA OF CKD .. ON EPO SEPSIS .. ON IVAB PER ID VDRF .. ON VENT C/O CURRENT CARE
[2016-08-07 05:30] LABS: HEMATOCRIT 26.9 % (35.0-51.0); MEAN CELL VOLUME 88.1 fl (80.0-94.0); MEAN CORPUSCULAR HEMOGLOBIN 27.3 pg (27.0-31.0); RED CELL DISTRIBUTION WIDTH 20.5 % (11.5-14.5); WHITE BLOOD COUNT 8.9 K/uL (4.8-10.8)
[2016-08-07 05:43] LABS: ALB/GLOB RATIO 0.6 (1.0-2.1); BILIRUBIN,TOTAL 1.1 mg/dl (0.2-1.3); CALCIUM 7.9 mg/dL (8.4-10.2); POTASSIUM 4.4 MMOL/L (3.6-5.0); TOTAL PROTEIN 7.2 G/DL (6.3-8.2)
[2016-08-07] MEDS: Insulin Regular 100 units/ml SC SCH ×3 (07:15→16:40)
--- NOTE | 2016-08-07 08:39 | CP.PCM.PN ---
Subjective - Date & Time of Evaluation Date of Evaluation: 08/07/16 Time of Evaluation: 07:40 - Subjective Subjective: Patient seen and examined. No acute events over night. FiO2 40%, PEEP 5. Objective - Vital Signs/Intake and Output Vital Signs (last 24 hours): Temp Pulse Resp BP Pulse Ox 98.3 F 83 16 98/18 L 100 08/07/16 08:00 08/07/16 08:00 08/07/16 08:00 08/07/16 08:00 08/07/16 08:00 Intake and Output: 08/07/16 08/07/16 06:59 18:59 Intake Total 800 Balance 800 - Medications Medications: Current Medications Acetaminophen (Tylenol 650mg/20.3ml Solution Ud) 650 mg PO Q6 PRN PRN Reason: fever Last Admin: 07/28/16 23:38 Dose: 650 mg Acetaminophen (Tylenol 325mg Tab) 650 mg PO Q6H PRN PRN Reason: Pain, moderate (4-7) Allopurinol (Zyloprim) 100 mg PO DAILY [facility] Last Admin: 08/06/16 12:23 Dose: 100 mg Artificial Tears (Artificial Tears) 2 drop OU Q6 PRN PRN Reason: Dry eyes Last Admin: 08/06/16 12:17 Dose: 2 drop Ascorbic Acid (Vitamin C 500 Mg Tab) 1,000 mg PO DAILY [facility] Last Admin: 08/06/16 12:22 Dose: 1,000 mg Bismuth Subsalicylate (Pepto-Bismol) 524 mg PO Q6H PRN PRN Reason: Diarrhea Carvedilol (Coreg) 12.5 mg PO BID [facility] Last Admin: 08/06/16 17:42 Dose: 12.5 mg Dextrose (Dextrose 50% Inj) 0 ml IVP STAT PRN; Protocol PRN Reason: Hypoglycemia Protocol Ezetimibe (Zetia) 10 mg PO HS [facility] Last Admin: 08/06/16 21:49 Dose: 10 mg Epoetin Jameel (Procrit) 4,000 unit SC MWF [facility] Last Admin: 08/06/16 09:26 Dose: 4,000 unit Ergocalciferol (Drisdol 50,000 Intl Units Cap) 1 cap PO QWK [facility] Glucagon (Glucagen Diagnostic Kit) 0 mg IM STAT PRN; Protocol PRN Reason: Hypoglycemia Protocol Vancomycin HCl 1 gm/ Sodium (Chloride) 250 mls @ 166.667 mls/hr IVPB MWF [facility] Last Admin: 08/06/16 12:21 Dose: 166.667 mls/hr Micafungin Sodium 100 mg/ (Sodium Chloride) 100 mls @ 100 mls/hr IVPB DAILY [facility] Last Admin: 08/06/16 12:20 Dose: 100 mls/hr Cefepime HCl 1 gm/ Sodium (Chloride) 100 mls @ 100 mls/hr IVPB DAILY [facility] Last Admin: 08/06/16 17:43 Dose: 100 mls/hr Piperacillin Sod/Tazobactam (Sod 2.25 gm/ Sodium Chloride) 100 mls @ 100 mls/ hr IVPB Q8 [facility] Last Admin: 08/07/16 01:00 Dose: 100 mls/hr Insulin Detemir (Levemir) 25 units SC HS [facility] Last Admin: 08/06/16 21:45 Dose: 25 units Insulin Human Regular (Humulin R) 0 units SC ACHS [facility] PRN Reason: Protocol Last Admin: 08/06/16 21:47 Dose: Not Given Midodrine (Proamatine) 10 mg PO Q8H [facility] Last Admin: 08/07/16 04:30 Dose: 10 mg Pantoprazole Sodium (Protonix Susp) 40 mg PO DAILY [facility] Last Admin: 08/06/16 12:21 Dose: 40 mg Sevelamer Carbonate (Renvela) 0.8 gm PO TID [facility] Last Admin: 08/06/16 17:44 Dose: 0.8 gm Sitagliptin Phosphate (Januvia) 25 mg PO DAILY [facility] Last Admin: 08/06/16 12:19 Dose: 25 mg Tamsulosin HCl (Flomax) 0.4 mg PO DAILY [facility] Last Admin: 08/06/16 12:18 Dose: 0.4 mg Vitamin B Complex/Vit C/Folic Acid (Nephro-Carlitos) 1 tab PO DAILY [facility] Last Admin: 08/06/16 12:20 Dose: 1 tab - Labs Labs: 08/07/16 05:00 08/07/16 05:00 PT 11.8 SECONDS (9.6-11.2) H 08/05/16 04:20 INR 1.13 (0.92-1.08) H 08/05/16 04:20 APTT 28.5 SECONDS (23.3-32.5) 08/05/16 04:20 - Constitutional Appears: Other (intubated) - Head Exam Head Exam: NORMOCEPHALIC - Eye Exam Pupil Exam: Irregular - Respiratory Exam Additional comments: intubated - Cardiovascular Exam Cardiovascular Exam: +S1 - GI/Abdominal Exam GI & Abdominal Exam: Distended, Soft - Extremities Exam Extremities Exam: Pedal Edema - Neurological Exam Neurological Exam: absent: Alert, Awake - Skin Skin Exam: Warm Assessment and Plan - Assessment and Plan (Free Text) Assessment: 80M w/ acute on chronic CKD, s/p code blue w/ acute respiratory failure and anoxic brain injury, intubated since 07/14 Plan: -Patient to be terminally extubated D/w with Dr. Roa
--- NOTE | 2016-08-07 08:43 | CON ---
DATE: 08/06/2016 REFERRING PHYSICIAN: Dr. Tang Solorio. REASON FOR CONSULTATION: PEG tube insertion. HISTORY OF PRESENT ILLNESS: This is an 80-year-old, hypertension, diabetes, acute kidney inju ry, had a complicated course involving intubation distress and basically cannot tolerate orals and GI is called for PEG tube insertion. PAST MEDICAL HISTORY: As above. PAST SURGICAL HISTORY: As above. MEDICATIONS: Have been reviewed. REVIEW OF SYSTEMS: All other systems obtained, . PHYSICAL EXAMINATION: VITAL SIGNS: Here in the hospital are grossly unremarkable. GENERAL: This is pleasant, elderly-appearing male lying in bed, comfortable, in no apparent distress . HEAD: Normocephalic, atraumatic. EYES: Pupils equally reactive to light bilaterally. No conjunctival pallor or icterus. NECK: Supple, normal range of motion. No lymphadenopathy appreciated. LUNGS: Coarse breath sounds bilaterally. HEART: S1, S2. Regular rate and rhythm. No murmurs appreciated. ABDOMEN: Soft, nontender. Bowel sounds present. RECTAL: Deferred. EXTREMITIES: Pulses felt bilaterally. SKIN: Warm, dry and intact. NEUROLOGIC: Alert and oriented times zero, he responds to pain. LABORATORY DATA: Labs reviewed. WBC is 8.6, hemoglobin 8.9, hematocrit 25.2, INR 1.13. ASSESSMENT AND PLAN: This is an 80-year-old male for PEG tube insertion. Will discuss with family r egarding they really want to do. We will follow the patient with you. goals of care. Thank you for the consult. Renzo Truong MD, PhD cc: [id number] TT: 08/06/2016 21:32:56 Confirmation # [id number] Dictation # [id number] mn
--- NOTE | 2016-08-07 09:01 | CP.PCM.PN ---
Subjective - Date & Time of Evaluation Date of Evaluation: 08/07/16 Time of Evaluation: 07:19 - Subjective Subjective: Patient seen and examined at bedside with attending. No overnight events reported. Decision was made for no tracheostomy or PEG tube insertion. Family is considering terminal intubation and comfort care. However family requested EEG to be done, EEG completed yesterday. unable to obtain ROS due to patient's clinical condition/vented. Objective - Vital Signs/Intake and Output Vital Signs (last 24 hours): Temp Pulse Resp BP Pulse Ox 98.3 F 83 16 98/18 L 100 08/07/16 08:00 08/07/16 08:00 08/07/16 08:00 08/07/16 08:00 08/07/16 08:00 Intake and Output: 08/07/16 08/07/16 06:59 18:59 Intake Total 800 Balance 800 - Medications Medications: Current Medications Acetaminophen (Tylenol 650mg/20.3ml Solution Ud) 650 mg PO Q6 PRN PRN Reason: fever Last Admin: 07/28/16 23:38 Dose: 650 mg Acetaminophen (Tylenol 325mg Tab) 650 mg PO Q6H PRN PRN Reason: Pain, moderate (4-7) Allopurinol (Zyloprim) 100 mg PO DAILY [facility] Last Admin: 08/06/16 12:23 Dose: 100 mg Artificial Tears (Artificial Tears) 2 drop OU Q6 PRN PRN Reason: Dry eyes Last Admin: 08/06/16 12:17 Dose: 2 drop Ascorbic Acid (Vitamin C 500 Mg Tab) 1,000 mg PO DAILY [facility] Last Admin: 08/06/16 12:22 Dose: 1,000 mg Bismuth Subsalicylate (Pepto-Bismol) 524 mg PO Q6H PRN PRN Reason: Diarrhea Carvedilol (Coreg) 12.5 mg PO BID [facility] Last Admin: 08/06/16 17:42 Dose: 12.5 mg Dextrose (Dextrose 50% Inj) 0 ml IVP STAT PRN; Protocol PRN Reason: Hypoglycemia Protocol Ezetimibe (Zetia) 10 mg PO HS [facility] Last Admin: 08/06/16 21:49 Dose: 10 mg Epoetin Jameel (Procrit) 4,000 unit SC MWF [facility] Last Admin: 08/06/16 09:26 Dose: 4,000 unit Ergocalciferol (Drisdol 50,000 Intl Units Cap) 1 cap PO QWK [facility] Glucagon (Glucagen Diagnostic Kit) 0 mg IM STAT PRN; Protocol PRN Reason: Hypoglycemia Protocol Vancomycin HCl 1 gm/ Sodium (Chloride) 250 mls @ 166.667 mls/hr IVPB MWF [facility] Last Admin: 08/06/16 12:21 Dose: 166.667 mls/hr Micafungin Sodium 100 mg/ (Sodium Chloride) 100 mls @ 100 mls/hr IVPB DAILY [facility] Last Admin: 08/06/16 12:20 Dose: 100 mls/hr Cefepime HCl 1 gm/ Sodium (Chloride) 100 mls @ 100 mls/hr IVPB DAILY [facility] Last Admin: 08/06/16 17:43 Dose: 100 mls/hr Piperacillin Sod/Tazobactam (Sod 2.25 gm/ Sodium Chloride) 100 mls @ 100 mls/ hr IVPB Q8 [facility] Last Admin: 08/07/16 01:00 Dose: 100 mls/hr Insulin Detemir (Levemir) 25 units SC [facility] Last Admin: 08/06/16 21:45 Dose: 25 units Insulin Human Regular (Humulin R) 0 units SC ACHS [facility] PRN Reason: Protocol Last Admin: 08/06/16 21:47 Dose: Not Given Midodrine (Proamatine) 10 mg PO Q8H [facility] Last Admin: 08/07/16 04:30 Dose: 10 mg Pantoprazole Sodium (Protonix Susp) 40 mg PO DAILY [facility] Last Admin: 08/06/16 12:21 Dose: 40 mg Sevelamer Carbonate (Renvela) 0.8 gm PO TID [facility] Last Admin: 08/06/16 17:44 Dose: 0.8 gm Sitagliptin Phosphate (Januvia) 25 mg PO DAILY [facility] Last Admin: 08/06/16 12:19 Dose: 25 mg Tamsulosin HCl (Flomax) 0.4 mg PO DAILY [facility] Last Admin: 08/06/16 12:18 Dose: 0.4 mg Vitamin B Complex/Vit C/Folic Acid (Nephro-Carlitos) 1 tab PO DAILY [facility] Last Admin: 08/06/16 12:20 Dose: 1 tab - Labs Labs: 08/07/16 05:00 08/07/16 05:00 PT 11.8 SECONDS (9.6-11.2) H 08/05/16 04:20 INR 1.13 (0.92-1.08) H 08/05/16 04:20 APTT 28.5 SECONDS (23.3-32.5) 08/05/16 04:20 - Additional Findings Additional findings: - Constitutional Appears: Non-toxic - Head Exam Head Exam: NORMAL INSPECTION - Eye Exam Pupil Exam: Fixed - ENT Exam Additional comments: Intubated - Neck Exam Neck Exam: Normal Inspection - Respiratory Exam Respiratory Exam: NORMAL BREATHING PATTERN - Cardiovascular Exam Cardiovascular Exam: REGULAR RHYTHM - GI/Abdominal Exam GI & Abdominal Exam: Soft - Extremities Exam Extremities Exam: Normal Capillary Refill, Pedal Edema - Neurological Exam Neurological Exam: absent: Alert, Awake - Skin Skin Exam: Dry Assessment and Plan - Assessment and Plan (Free Text) Assessment: 80yo M with PMHx HTN, diabetes, prostate BPH and CKD admitted for acute on chronic kidney injury, cellulitis. Currently in ICU for bacteremia with anoxic brain injury on ventilator and unresponsive. Grave prognosis. Considering terminal extubation. cardiac arrest -Cardio on board, appreciate input -neuro on board, appreciate input -field clinical engineer on board, appreciate input -DNR code respiratory failure -Cardio on board, appreciate input -neuro on board, appreciate input -field clinical engineer on board, appreciate input -surgery on board, appreciate input. -intubated, consider terminal extubation bacteremia -2/2 cellulitis, PNA, or other source. h/o cath placement -blood cx: S anginosus/constellatus -ID on board, appreciate input -Cefepime, Micafungin, Vanc, Zosyn -pressors aspiration PNA -CXR 07/30/16: b/l infiltrates -ID on board, appreciate input -intubated -Cefepime, Micafungin, Vanc, Zosyn pAfib -Cardio on board, appreciate input -coreg acute on CKD -HD -Nephro on board, appreciate input cellulitis -Cefepime, Micafungin, Vanc, Zosyn -ID on board, appreciate input -podiatry on board, appreciate input anoxic brain injury -GCS 2, E1V(T)M1 -2/2 renal failure, sepsis, or cardiorenal syndrome -CT head x2 no acute change -neuro on board, appreciate input -intubated anemia -EPO -FOBT neg -Nephro on board, appreciate input anasarca -low albumin -monitor -HD -Nephro on board, appreciate input HTN -coreg HLD -statin -zetia DM -held linagliptin, pioglitazone -januvia -levemir -SSI -accuchecks DVT/GI ppx -heparin -protonix Dispo: awaiting family decision on further measures (i.e. terminal extubation) Code: DNR
[2016-08-07] MEDS: Sevelamer Carb 0.8 gm/Packet PO SCH ×3 (09:50→19:05)
[2016-08-07] MEDS: Artificial Tears Opht Soln OU PRN (09:50)
[2016-08-07] MEDS: Pantoprazole 40 mg Susp UD PO SCH (09:51)
[2016-08-07] MEDS: Multivitamin Vitamin B Complex (Nephro-Vite) Tab PO SCH (09:51)
[2016-08-07] MEDS: Micafungin 100 MG in Sodium Chloride 0.9% 100 ML IVPB SCH (09:54)
[2016-08-07] MEDS: Cefepime 1 GM in Sodium Chloride 0.9% 100 ML IVPB SCH (11:23)
--- NOTE | 2016-08-07 14:39 | CP.CCUPN ---
CCU Subjective - Physician Review Subjective (Free Text): MATH AND SCIENCE INSTRUCTOR PROGRESS NOTE Patient examined, interim events reviewed: No overall improvement in neuromental status since initial Code Blue event. He remains on MV support, albeit with stable and unchanged FIO2 requirements. Last underwent HD yesterday. Hemodynamics remains stable off vasopressors. Discussed at length yesterday with multiple family members regarding poor results on repeat EEG testing. They have re-iterated their plans for terminal withdrawal from MV support for later afternoon today. Also discussed aspects of further HD treatments and enteral feeds, both of which will stop when he is terminally extubated. Son and daughter do not want supplemental oxygen once patient is extubated. Comfort measures explained to family and will include Morphine bolus and initiation of Morphine drip once he is extubated. Family is also amenable to Hospice evaluation once he is extubated. CCU Objective - Physical Exam Genitourinary Male: Positive for: Other (Right groin TLC site clean, dry, with no surrounding erythema. )
--- NOTE | 2016-08-07 17:19 | CP.PCM.PN ---
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 He remains on MV support, albeit with stable and unchanged FIO2 requirements. Last underwent HD yesterday. Hemodynamics remains stable off vasopressors. Discussed at length yesterday with multiple family members regarding poor results on repeat EEG testing. They have re-iterated their plans for terminal withdrawal from MV support for later afternoon today. Also discussed aspects of further HD treatments and enteral feeds, both of which will stop when he is terminally extubated. Son and daughter do not want supplemental oxygen once patient is extubated. Comfort measures explained to family and will include Morphine bolus and initiation of Morphine drip once he is extubated. Family is also amenable to Hospice evaluation once he is extubated. CCU Objective Objective - Vital Signs/Intake and Output Vital Signs (last 24 hours): Temp Pulse Resp BP Pulse Ox 99.0 F 85 15 100/46 L 100 08/07/16 12:00 08/07/16 16:00 08/07/16 16:00 08/07/16 16:00 08/07/16 16:00 Intake and Output: 08/07/16 08/07/16 06:59 18:59 Intake Total 800 741 Balance 800 741 - Medications Medications: Current Medications Acetaminophen (Tylenol 650mg/20.3ml Solution Ud) 650 mg PO Q6 PRN PRN Reason: fever Last Admin: 07/28/16 23:38 Dose: 650 mg Acetaminophen (Tylenol 325mg Tab) 650 mg PO Q6H PRN PRN Reason: Pain, moderate (4-7) Allopurinol (Zyloprim) 100 mg PO DAILY [facility] Last Admin: 08/07/16 09:53 Dose: 100 mg Artificial Tears (Artificial Tears) 2 drop OU Q6 PRN PRN Reason: Dry eyes Last Admin: 08/07/16 09:50 Dose: 2 drop Bismuth Subsalicylate (Pepto-Bismol) 524 mg PO Q6H PRN PRN Reason: Diarrhea Carvedilol (Coreg) 12.5 mg PO BID [facility] Last Admin: 08/07/16 09:51 Dose: 12.5 mg Dextrose (Dextrose 50% Inj) 0 ml IVP STAT PRN; Protocol PRN Reason: Hypoglycemia Protocol Ezetimibe (Zetia) 10 mg PO [facility] Last Admin: 08/06/16 21:49 Dose: 10 mg Epoetin Jameel (Procrit) 4,000 unit SC [facility] Last Admin: 08/06/16 09:26 Dose: 4,000 unit Ergocalciferol (Drisdol 50,000 Intl Units Cap) 1 cap PO QWK [facility] Glucagon (Glucagen Diagnostic Kit) 0 mg IM STAT PRN; Protocol PRN Reason: Hypoglycemia Protocol Vancomycin HCl 1 gm/ Sodium (Chloride) 250 mls @ 166.667 mls/hr IVPB [facility] Last Admin: 08/06/16 12:21 Dose: 166.667 mls/hr Micafungin Sodium 100 mg/ (Sodium Chloride) 100 mls @ 100 mls/hr IVPB DAILY [facility] Last Admin: 08/07/16 09:54 Dose: 100 mls/hr Cefepime HCl 1 gm/ Sodium (Chloride) 100 mls @ 100 mls/hr IVPB DAILY [facility] Last Admin: 08/07/16 11:23 Dose: 100 mls/hr Piperacillin Sod/Tazobactam (Sod 2.25 gm/ Sodium Chloride) 100 mls @ 100 mls/ hr IVPB Q8 [facility] Last Admin: 08/07/16 09:52 Dose: 100 mls/hr Morphine Sulfate 100 mg/ (Sodium Chloride) 104 mls @ 2.08 mls/hr IVPB .Q24H [facility] ; 2 MG/HR PRN Reason: Protocol Insulin Detemir (Levemir) 25 units SC [facility] Last Admin: 08/06/16 21:45 Dose: 25 units Insulin Human Regular (Humulin R) 0 units SC ACHS [facility] PRN Reason: Protocol Last Admin: 08/07/16 11:30 Dose: 6 units Midodrine (Proamatine) 10 mg PO Q8H [facility] Last Admin: 08/07/16 13:12 Dose: 10 mg Pantoprazole Sodium (Protonix Susp) 40 mg PO DAILY [facility] Last Admin: 08/07/16 09:51 Dose: 40 mg Sevelamer Carbonate (Renvela) 0.8 gm PO TID [facility] Last Admin: 08/07/16 13:13 Dose: 0.8 gm Sitagliptin Phosphate (Januvia) 25 mg PO DAILY [facility] Last Admin: 08/07/16 09:52 Dose: 25 mg Tamsulosin HCl (Flomax) 0.4 mg PO DAILY [facility] Last Admin: 08/07/16 09:50 Dose: 0.4 mg - Labs Labs: 08/07/16 05:00 08/07/16 05:00 PT 11.8 SECONDS (9.6-11.2) H 08/05/16 04:20 INR 1.13 (0.92-1.08) H 08/05/16 04:20 APTT 28.5 SECONDS (23.3-32.5) 08/05/16 04:20 Assessment and Plan - Assessment and Plan (Free Text) Assessment: A ON CKD .. ON HD M W F .. WILL STOP HD AT THE FAMILY REQUEST FOR FINAL WEANING TODAY PT HAS VERY POOR PROGNOSIS
[2016-08-07] MEDS: Morphine 100 MG in Sodium Chloride 0.9% 100 ML IVPB SCH ×2 (18:17→19:01)
--- NOTE | 2016-08-07 18:48 | CP.PCM.PCO ---
Additional Comments - Additional Comments Additional Comments: Family members that wished to be present at the bedside for terminal extubation have all arrived, and approached by sonPorfirio, now requesting terminal extubation. Orders placed, feeding tube removed as well for patient comfort, and morphine bolus and drip started to ensure patient comfort. Hospice consultation placed as well.
[2016-08-08] MEDS: Insulin Regular 100 units/ml SC SCH (07:30)
[2016-08-08 07:44] VITALS: TEMP 97.6
[2016-08-08] MEDS: Micafungin 100 MG in Sodium Chloride 0.9% 100 ML IVPB SCH (09:00)
[2016-08-08] MEDS: Cefepime 1 GM in Sodium Chloride 0.9% 100 ML IVPB SCH (09:00)
[2016-08-08 12:30] VITALS: BP 63/27; PULSE 63; RESP 14; O2SAT 90
[2016-08-08] MEDS: Morphine 100 MG in Sodium Chloride 0.9% 100 ML IVPB SCH (13:00)
--- NOTE | 2016-08-08 13:26 | CP.PCM.PRO ---
Pronouncement of Note - Clinical Findings Physical Exam: No Response Verbal/Painful Stimuli, Absent Peripheral Pulses{ Carotid & Femoral}, Absent Heart & Breath Sounds, No Pupillary Light Reflex, No Corneal Reflex, Pupils Fixed & Dilated, Absence of Vital Signs - Pronouncement Time Time of Pronouncement of : 13:00 - Notifications Pronouncement Notifications: Family Notified, Atending Notified Shoe Coverer Notified: No - Autopsy Autopsy Requested: No [place] [id number]
--- NOTE | 2016-08-08 13:55 | CP.PCM.PN ---
Subjective - Date & Time of Evaluation Date of Evaluation: 08/07/16 Time of Evaluation: 11:30 - Subjective Subjective: no overnight events Objective - Vital Signs/Intake and Output Vital Signs (last 24 hours): Temp Pulse Resp BP Pulse Ox 97.6 F 63 14 63/27 L 90 L 08/08/16 12:29 08/08/16 12:29 08/08/16 12:29 08/08/16 12:29 08/08/16 12:29 - Medications Medications: Current Medications Acetaminophen (Tylenol 650mg/20.3ml Solution Ud) 650 mg PO Q6 PRN PRN Reason: fever Last Admin: 07/28/16 23:38 Dose: 650 mg Acetaminophen (Tylenol 325mg Tab) 650 mg PO Q6H PRN PRN Reason: Pain, moderate (4-7) Allopurinol (Zyloprim) 100 mg PO DAILY [facility] Last Admin: 08/07/16 09:53 Dose: 100 mg Artificial Tears (Artificial Tears) 2 drop OU Q6 PRN PRN Reason: Dry eyes Last Admin: 08/07/16 09:50 Dose: 2 drop Bismuth Subsalicylate (Pepto-Bismol) 524 mg PO Q6H PRN PRN Reason: Diarrhea Carvedilol (Coreg) 12.5 mg PO BID [facility] Last Admin: 08/07/16 17:40 Dose: Not Given Dextrose (Dextrose 50% Inj) 0 ml IVP STAT PRN; Protocol PRN Reason: Hypoglycemia Protocol Ezetimibe (Zetia) 10 mg PO HS [facility] Last Admin: 08/06/16 21:49 Dose: 10 mg Epoetin Jameel (Procrit) 4,000 unit SC [facility] [place] Last Admin: 08/06/16 09:26 Dose: 4,000 unit Ergocalciferol (Drisdol 50,000 Intl Units Cap) 1 cap PO QWK [facility] Glucagon (Glucagen Diagnostic Kit) 0 mg IM STAT PRN; Protocol PRN Reason: Hypoglycemia Protocol Vancomycin HCl 1 gm/ Sodium (Chloride) 250 mls @ 166.667 mls/hr IVPB MWF [facility] Last Admin: 08/06/16 12:21 Dose: 166.667 mls/hr Micafungin Sodium 100 mg/ (Sodium Chloride) 100 mls @ 100 mls/hr IVPB DAILY [facility] Last Admin: 08/07/16 09:54 Dose: 100 mls/hr Cefepime HCl 1 gm/ Sodium (Chloride) 100 mls @ 100 mls/hr IVPB DAILY [facility] Last Admin: 08/07/16 11:23 Dose: 100 mls/hr Piperacillin Sod/Tazobactam (Sod 2.25 gm/ Sodium Chloride) 100 mls @ 100 mls/ hr IVPB Q8 [facility] Last Admin: 08/07/16 17:05 Dose: Not Given Morphine Sulfate 100 mg/ (Sodium Chloride) 104 mls @ 2.08 mls/hr IVPB .Q24H [facility] ; 2 MG/HR PRN Reason: Protocol Last Admin: 08/07/16 19:01 Dose: 2.08 mls/hr Insulin Detemir (Levemir) 25 units SC HS [facility] Last Admin: 08/06/16 21:45 Dose: 25 units Insulin Human Regular (Humulin R) 0 units SC ACHS [facility] PRN Reason: Protocol Last Admin: 08/07/16 16:40 Dose: Not Given Midodrine (Proamatine) 10 mg PO Q8H [facility] Last Admin: 08/07/16 13:12 Dose: 10 mg Pantoprazole Sodium (Protonix Susp) 40 mg PO DAILY [facility] Last Admin: 08/07/16 09:51 Dose: 40 mg Sevelamer Carbonate (Renvela) 0.8 gm PO TID [facility] Last Admin: 08/07/16 19:05 Dose: Not Given Sitagliptin Phosphate (Januvia) 25 mg PO DAILY [facility] Last Admin: 08/07/16 09:52 Dose: 25 mg Tamsulosin HCl (Flomax) 0.4 mg PO DAILY [facility] Last Admin: 08/07/16 09:50 Dose: 0.4 mg - Labs Labs: 08/07/16 05:00 08/07/16 05:00 PT 11.8 SECONDS (9.6-11.2) H 08/05/16 04:20 INR 1.13 (0.92-1.08) H 08/05/16 04:20 APTT 28.5 SECONDS (23.3-32.5) 08/05/16 04:20 - GI/Abdominal Exam GI & Abdominal Exam: Soft, Normal Bowel Sounds Assessment and Plan - Assessment and Plan (Free Text) Assessment: 80 yo male with dysphagia \ family refusing peg please re-consult prn
--- NOTE | 2016-08-08 14:54 | CP.PCM.PN ---
Subjective - Date & Time of Evaluation Date of Evaluation: 08/08/16 Time of Evaluation: 07:51 - Subjective Subjective: Patient evaluated at bedside with attending. Patient terminally extubated yesterday evening with requests of family. No acute events overnight. Objective - Vital Signs/Intake and Output Vital Signs (last 24 hours): Temp Pulse Resp BP Pulse Ox 97.6 F 63 14 63/27 L 90 L 08/08/16 12:29 08/08/16 12:29 08/08/16 12:29 08/08/16 12:29 08/08/16 12:29 - Medications Medications: Current Medications Acetaminophen (Tylenol 650mg/20.3ml Solution Ud) 650 mg PO Q6 PRN PRN Reason: fever Last Admin: 07/28/16 23:38 Dose: 650 mg Acetaminophen (Tylenol 325mg Tab) 650 mg PO Q6H PRN PRN Reason: Pain, moderate (4-7) Allopurinol (Zyloprim) 100 mg PO DAILY [facility] Last Admin: 08/07/16 09:53 Dose: 100 mg Artificial Tears (Artificial Tears) 2 drop OU Q6 PRN PRN Reason: Dry eyes Last Admin: 08/07/16 09:50 Dose: 2 drop Bismuth Subsalicylate (Pepto-Bismol) 524 mg PO Q6H PRN PRN Reason: Diarrhea Carvedilol (Coreg) 12.5 mg PO BID [facility] Last Admin: 08/07/16 17:40 Dose: Not Given Dextrose (Dextrose 50% Inj) 0 ml IVP STAT PRN; Protocol PRN Reason: Hypoglycemia Protocol Ezetimibe (Zetia) 10 mg PO HS [facility] Last Admin: 08/06/16 21:49 Dose: 10 mg Epoetin Jameel (Procrit) 4,000 unit SC [facility] [place] Last Admin: 08/06/16 09:26 Dose: 4,000 unit Ergocalciferol (Drisdol 50,000 Intl Units Cap) 1 cap PO QWK [facility] Glucagon (Glucagen Diagnostic Kit) 0 mg IM STAT PRN; Protocol PRN Reason: Hypoglycemia Protocol Vancomycin HCl 1 gm/ Sodium (Chloride) 250 mls @ 166.667 mls/hr IVPB [facility] [place] Last Admin: 08/06/16 12:21 Dose: 166.667 mls/hr Micafungin Sodium 100 mg/ (Sodium Chloride) 100 mls @ 100 mls/hr IVPB DAILY [facility] Last Admin: 08/07/16 09:54 Dose: 100 mls/hr Cefepime HCl 1 gm/ Sodium (Chloride) 100 mls @ 100 mls/hr IVPB DAILY [facility] Last Admin: 08/07/16 11:23 Dose: 100 mls/hr Piperacillin Sod/Tazobactam (Sod 2.25 gm/ Sodium Chloride) 100 mls @ 100 mls/ hr IVPB Q8 [facility] Last Admin: 08/07/16 17:05 Dose: Not Given Morphine Sulfate 100 mg/ (Sodium Chloride) 104 mls @ 2.08 mls/hr IVPB .Q24H [facility] ; 2 MG/HR PRN Reason: Protocol Last Admin: 08/07/16 19:01 Dose: 2.08 mls/hr Insulin Detemir (Levemir) 25 units SC HS [facility] Last Admin: 08/06/16 21:45 Dose: 25 units Insulin Human Regular (Humulin R) 0 units SC ACHS [facility] PRN Reason: Protocol Last Admin: 08/07/16 16:40 Dose: Not Given Midodrine (Proamatine) 10 mg PO Q8H [facility] Last Admin: 08/07/16 13:12 Dose: 10 mg Pantoprazole Sodium (Protonix Susp) 40 mg PO DAILY [facility] Last Admin: 08/07/16 09:51 Dose: 40 mg Sevelamer Carbonate (Renvela) 0.8 gm PO TID [facility] Last Admin: 08/07/16 19:05 Dose: Not Given Sitagliptin Phosphate (Januvia) 25 mg PO DAILY [facility] Last Admin: 08/07/16 09:52 Dose: 25 mg Tamsulosin HCl (Flomax) 0.4 mg PO DAILY [facility] Last Admin: 08/07/16 09:50 Dose: 0.4 mg - Labs Labs: 08/07/16 05:00 08/07/16 05:00 PT 11.8 SECONDS (9.6-11.2) H 08/05/16 04:20 INR 1.13 (0.92-1.08) H 08/05/16 04:20 APTT 28.5 SECONDS (23.3-32.5) 08/05/16 04:20 - Constitutional Appears: No Acute Distress, Chronically Ill - Head Exam Head Exam: NORMAL INSPECTION, NORMOCEPHALIC - Eye Exam Eye Exam: Normal appearance - Neck Exam Neck Exam: Normal Inspection - Respiratory Exam Respiratory Exam: NORMAL BREATHING PATTERN - Cardiovascular Exam Cardiovascular Exam: REGULAR RHYTHM, +S1, +S2. absent: Murmur - GI/Abdominal Exam GI & Abdominal Exam: Soft. absent: Tenderness - Extremities Exam Extremities Exam: Normal Inspection - Neurological Exam Neurological Exam: absent: Alert, Awake - Skin Skin Exam: Dry, Intact, Normal Color, Warm Assessment and Plan - Assessment and Plan (Free Text) Assessment: 80yo M with PMHx HTN, diabetes, prostate BPH and CKD admitted for acute on chronic kidney injury, cellulitis. Currently in ICU for bacteremia with anoxic brain injury on ventilator and unresponsive. Grave prognosis. Terminally extubated yesterday. End of life care -Hospice notified -Family in constant communication -Code: DNR -Comfort measures only
== END 2016-08-08 13:00 | DRG 870 ==
LOC: H.ER 19:59 → H.ERHOLD 21:50 → H.MEDSURG1 07-10 00:51 → H.TEL 07-10 18:21 → H.ICU/CCU 07-14 13:50
PROVIDERS: ADMIT Internal Medicine; ATTEND Internal Medicine
PROC: 05HM33Z Insertion of Infusion Device into Right Internal Jugular Vein, Percutaneous Approach (ICD-10-PCS; principal; 2016-07-10)
PROC: 5A1D60Z (ICD-10-PCS; 2016-07-10)
PROC: 5A1955Z Respiratory Ventilation, Greater than 96 Consecutive Hours (ICD-10-PCS; 2016-07-14)
PROC: 5A12012 Performance of Cardiac Output, Single, Manual (ICD-10-PCS; 2016-07-14)
PROC: 06HM33Z Insertion of Infusion Device into Right Femoral Vein, Percutaneous Approach (ICD-10-PCS; 2016-07-14)
PROC: 0BH17EZ Insertion of Endotracheal Airway into Trachea, Via Natural or Artificial Opening (ICD-10-PCS; 2016-07-14)
PROC: 5A12012 Performance of Cardiac Output, Single, Manual (ICD-10-PCS; 2016-07-28)
PROC: 0BH17EZ Insertion of Endotracheal Airway into Trachea, Via Natural or Artificial Opening (ICD-10-PCS; 2016-07-28)
DX: A40.8 Other streptococcal sepsis (principal); J69.0 Pneumonitis due to inhalation of food and vomit; J96.01 Acute respiratory failure with hypoxia; R40.20 Unspecified coma; R65.21 Severe sepsis with septic shock; G93.1 Anoxic brain damage, not elsewhere classified; N17.9 Acute kidney failure, unspecified; E87.2 Acidosis; R13.10 Dysphagia, unspecified; N18.6 End stage renal disease; I48.92 Unspecified atrial flutter; I13.11 Hypertensive heart and chronic kidney disease without heart failure, with stage 5 chronic kidney disease, or end stage renal disease; E87.1 Hypo-osmolality and hyponatremia; L03.115 Cellulitis of right lower limb; Z68.41 Body mass index [BMI] 40.0-44.9, adult; J98.11 Atelectasis; Z99.11 Dependence on respirator [ventilator] status; L97.919 Non-pressure chronic ulcer of unspecified part of right lower leg with unspecified severity; I46.9 Cardiac arrest, cause unspecified; I48.0 Paroxysmal atrial fibrillation; E11.22 Type 2 diabetes mellitus with diabetic chronic kidney disease; E88.81 Metabolic syndrome and other insulin resistance; E87.5 Hyperkalemia; D63.1 Anemia in chronic kidney disease; E66.01 Morbid (severe) obesity due to excess calories; E78.5 Hyperlipidemia, unspecified; I87.2 Venous insufficiency (chronic) (peripheral); N40.0 Benign prostatic hyperplasia without lower urinary tract symptoms; Z66 Do not resuscitate; I35.0 Nonrheumatic aortic (valve) stenosis; E78.00 Pure hypercholesterolemia, unspecified; Z51.5 Encounter for palliative care